=== PATIENT | female | born 1990 | race Caucasian/White ===

== ENCOUNTER 2021-12-26 14:10 | Emergency (ER) | payer OTHER, SELFPAY ==
[2021-12-26 14:24] VITALS: BP 142/69; PULSE 129; RESP 16; TEMP 35.9; O2SAT 97
[2021-12-26 14:52] LABS: Basophils Absolute Auto 0.1 K/mm3 (0.0-0.1); Basophils Percent Auto 0.6 % (0.2-1.2); Eosinophils Absolute Auto 0.2 K/mm3 (0-0.3); Eosinophils Percent Auto 2.3 % (0-4.4); Hematocrit 41.7 % (37.0-47.0); Hemoglobin 13.3 g/dL (12.0-15.0); Immature Granulocyte Absolute 0.04 K/mm3 (0.00-0.031); Immature Granulocyte Percent A 0.4 % (0-0.5); Lymphocytes Absolute Auto 2.85 K/mm3 (0.9-3.2); Lymphocytes Percent Auto 26.7 % (18.3-44.2); Mean Corpuscular HGB Conc 31.9 g/dl (32-36); Mean Corpuscular Hemoglobin 29.8 pg (26-34); Mean Corpuscular Volume 93.5 fl (80-100); Mean Platelet Volume 9.3 fl (7.4-10.4); Monocytes Absolute Auto 0.8 K/mm3 (0.1-0.6); Monocytes Percent Auto 7.3 % (2.6-8.5); Neutrophils Absolute Auto 6.7 K/mm3 (1.3-6.7); Neutrophils Percent Auto 62.7 % (45.5-73.1); Platelet Count Result 320 k/mm3 (150-375); Red Blood Count 4.46 M/mm3 (4.2-5.4); Red Cell Distribution Width 13.2 % (11.5-14.5); White Blood Count 10.7 K/mm3 (4.5-10.0)
[2021-12-26 14:53] LABS: Appearance Urine Clear (Clear); Bilirubin Urine Negative (Negative); Color Urine Yellow (Yellow); Glucose Urine UA Negative (Negative); Ketones Urine Negative (Negative); Leukocyte Esterase Ur Negative LEU/UL (Negative); Nitrate Urine Negative (Negative); Protein Urine Negative (Negative); Urobilinogen Urine 0.2 mg/dL (<2.0); pH Urine 6.5 (5.0-9.0)
[2021-12-26 14:59] LABS: Add Urine Microscopic? YES; Blood Urine Trace-Intact (Negative); Mucus Urine Few /lpf; RBC Urine 0-2 /hpf (0-2); Squamous Epithelial Cell Urine Few /hpf (Few); WBC Urine 0-3 /hpf
[2021-12-26 15:05] LABS: Alanine Aminotransferase 12 U/L (6-35); Albumin Level 4.6 g/dL (3.5-5.1); Alkaline Phosphatase 57 U/L (38-126); Anion Gap 7 mmol/L (8-16); Aspartate Amino Transferase 18 U/L (14-36); Bilirubin,Total 0.3 mg/dL (0.2-1.3); Blood Urea Nitrogen 9 mg/dL (7-17); Calcium 9.5 mg/dL (8.4-10.2); Carbon Dioxide 27 mmol/L (22-30); Chloride 104 mmol/L (98-107); Estimated CRCL calculation 93 ml/min; Estimated Glomerular Filt Rate > 60; Glucose 86 mg/dL (65-110); Lipase 63 U/L (23-300); Potassium 4.3 mmol/L (3.4-5.0); Sodium 138 mmol/L (137-145)
--- NOTE | 2021-12-26 16:15 | PC.NURSE ---
pt. called x2 for triage no answer.
== END 2021-12-26 17:03 | disposition left against medical advice (07) ==
LOC: ANHED 17:03
PROVIDERS: Emergency Provider Emergency Medicine; PCP Specialist
DX: Z53.21 Procedure and treatment not carried out due to patient leaving prior to being seen by health care provider (principal)
CPT/HCPCS: 36415; 80053; 81001; 83690; 85025; 99199

== ENCOUNTER 2024-01-29 15:12 | Outpatient (CLI) | payer OTHER, SELFPAY ==
[2024-01-31 02:18] LABS: Progesterone 18.2 ng/mL
== END 2024-01-29 15:13 | disposition home or self-care (01) ==
PROVIDERS: PCP Specialist; Visit Provider Nurse Practitioner Family
DX: O36.80X0 Pregnancy with inconclusive fetal viability, not applicable or unspecified (principal); Z3A.00 Weeks of gestation of pregnancy not specified
CPT/HCPCS: 36415; 84144; 84702

== ENCOUNTER 2024-01-31 13:18 | Outpatient (CLI) | payer OTHER, SELFPAY | END 2024-01-31 13:19 | disposition home or self-care (01) | LOC: ANHLAB 13:19 | PROVIDERS: PCP Specialist; Visit Provider Nurse Practitioner Family | DX: O36.80X0 Pregnancy with inconclusive fetal viability, not applicable or unspecified (principal); Z3A.00 Weeks of gestation of pregnancy not specified | CPT/HCPCS: 36415; 84702 ==

== ENCOUNTER 2024-02-05 15:03 | Outpatient (CLI) | payer OTHER, SELFPAY ==
--- NOTE | ~2024-02-05 | US_ITS ---
EXAMINATION: US OB <=14 wk fetus w TV DATE: 02/05/2024 15:49 INDICATION: First trimester with inconclusive viability TECHNIQUE: Real-time pelvic ultrasound utilizing both a transvaginal and transabdominal probe was pe rformed. The interpreting radiologist was not present for the study. COMPARISON: None. FINDINGS: The uterus measures 8.6 x 4.5 x 6.0 cm. There is an intrauterine gestational sac at the right side o f the fundus. A yolk sac and pole are identified. The crown rump length measures 10 mm, which c orrelates with an estimated gestational age of 7 weeks and 0 days. heart motion is identified m easuring 140 beats per minute (bpm) by M-mode Doppler. At the left side of the fundus there is a 1.9 x 1.2 x 0.7 subcentimeter hypoechoic region within the endometrial canal which could represent a smal l subchronic hematoma. The right ovary measures 2.1 x 1.3 x 1.3 cm. The left ovary measures 2.5 x 2.2 x 2.0 cm. There is no free fluid in the pelvis. IMPRESSION: 1. Single living fetus with heart rate 140 bpm. 2. Gestational age by ultrasound of 7 weeks 0 day(s) +/- 4 day(s) with ultrasound estimated date of d elivery (ANA) of 09/23/2024. 3. 1.9 x 1.2 x 0.7 cm possible subchronic hematoma. Reviewed, dictated and finalized at location A. IMPRESSION: 1. Single living fetus with heart rate 140 bpm. 2. Gestational age by ultrasound of 7 weeks 0 day(s) +/- 4 day(s) with ultrasou nd estimated date of delivery (ANA) of 09/23/2024. 3. 1.9 x 1.2 x 0.7 cm possible subchronic hematoma.
== END 2024-02-05 15:04 | disposition home or self-care (01) ==
LOC: ANHIMG 15:03
PROVIDERS: PCP Specialist; Visit Provider Nurse Practitioner Family
DX: O36.80X0 Pregnancy with inconclusive fetal viability, not applicable or unspecified (principal); Z3A.01 Less than 8 weeks gestation of pregnancy
CPT/HCPCS: 76801; 76817

== ENCOUNTER 2024-02-24 11:02 | Outpatient (CLI) | payer OTHER, SELFPAY ==
[2024-02-24 11:29] LABS: Basophils Percent Auto 0.3 % (0.2-1.2); Eosinophils Absolute Auto 0.1 K/mm3 (0-0.3); Hematocrit 37.1 % (37.0-47.0); Hemoglobin 12.2 g/dL (12.0-15.0); Immature Granulocyte Absolute 0.05 K/mm3 (0.00-0.031); Immature Granulocyte Percent A 0.6 % (0-0.5); Lymphocytes Percent Auto 25.7 % (18.3-44.2); Mean Corpuscular HGB Conc 32.9 g/dl (32-36); Mean Corpuscular Hemoglobin 31.9 pg (26-34); Mean Corpuscular Volume 97.1 fl (80-100); Mean Platelet Volume 9.3 fl (7.4-10.4); Monocytes Absolute Auto 0.5 K/mm3 (0.1-0.6); Monocytes Percent Auto 5.3 % (2.6-8.5); Neutrophils Percent Auto 67.1 % (45.5-73.1); Platelet Count Result 243 k/mm3 (150-375); Red Blood Count 3.82 M/mm3 (4.2-5.4); Red Cell Distribution Width 13.2 % (11.5-14.5); White Blood Count 8.9 K/mm3 (4.5-10.0)
[2024-02-24 11:33] LABS: Add Urine Microscopic? NO; Appearance Urine Clear (Clear); Bilirubin Urine Negative (Negative); Blood Urine Negative (Negative); Color Urine Yellow (Yellow); Glucose Urine UA Negative (Negative); Ketones Urine Negative (Negative); Leukocyte Esterase Ur Negative LEU/UL (Negative); Nitrate Urine Negative (Negative); Protein Urine Negative (Negative); Specific Grav Ur 1.012 (1.001-1.035); Urobilinogen Urine 0.2 mg/dL (<2.0)
[2024-02-24 12:19] LABS: Rapid Plasma Reagin Non-Reactive (NonReactive)
[2024-02-24 12:23] LABS: HIV 1/2 Ab P24 Ag Result Negative (Negative)
[2024-02-24 12:49] LABS: Hepatitis B Surface Antigen Negative (Negative); Rubella IgG Antibody 96.5 IU/ML
[2024-02-24 13:05] LABS: Hepatitis C Virus Antibody Negative (Negative)
[2024-02-25 23:23] LABS: Hematocrit 38.9 % (35.0-45.0); MCH 30.5 pg (27.0-33.0); RDW 12.7 % (11.0-15.0); Red Blood Cell Count 3.93 Million/uL (3.80-5.10)
== END 2024-02-24 11:03 | disposition home or self-care (01) ==
PROVIDERS: PCP Internal Medicine; Visit Provider Obstetrics & Gynecology
DX: Z34.90 Encounter for supervision of normal pregnancy, unspecified, unspecified trimester (principal)
CPT/HCPCS: 36415; 81003; 83021; 85025; 86592; 86703; 86762; 86787; 86803; 86850; 86900; 86901; 87086; 87340; G0432

== ENCOUNTER 2024-04-06 21:49 | Emergency (ER) | payer OTHER, SELFPAY ==
--- NOTE | ~2024-04-06 | US_ITS ---
EXAMINATION: US OB follow up DATE: 04/06/2024 22:41 INDICATION: Abdominal trauma during second trimester TECHNIQUE: Real-time ultrasound of the pelvis was performed. The interpreting radiologist was not pre sent for the study. COMPARISON: None. FINDINGS: There is a single living fetus in vertex presentation. The placenta is anterior with caudal margin p ossibly 3 cm from the region of the internal cervical os which is not clearly visualized. There is sm all region of either posterior uterine wall thickening related to a contraction versus a succenturiat e lobe of the placenta. No evident subchorionic hematoma. heart rate is 155 beats per minute (b pm). The amniotic fluid volume is subjectively normal with normal deepest vertical pocket measuring 2 .6 cm. IMPRESSION: 1. Single living fetus in vertex presentation with heart rate of 155 bpm. 2. Anterior placenta with caudal margin approximately 3 cm from the expected location of the internal cervical os which is not clearly visualized and without evidence of chronic hematoma. Small region o f focal posterior uterine wall thickening which could be due to a uterine contraction versus a oyster grader ior succenturiate lobe of the placenta. Could consider reevaluation on follow-up imaging. Reviewed, dictated and finalized at location A. IMPRESSION: 1. Single living fetus in vertex presentation with heart rate of 155 bpm. 2. Anterior placenta with caudal margin approximately 3 cm from the expected lo cation of the internal cervical os which is not clearly visualized and without evidence of chronic hematoma. Small region of focal posterior uterine wall thic kening which could be due to a uterine contraction versus a posterior succentur iate lobe of the placenta. Could consider reevaluation on follow-up imaging.
[2024-04-06 21:53] VITALS: BP 138/82; PULSE 94; RESP 16; TEMP 36.8; O2SAT 100
[2024-04-06] MEDS: ACETAMINOPHEN 500 MG TABLET 1000 MG PO (22:14)
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
[2024-04-07 01:00] VITALS: BP 130/72; PULSE 90; RESP 17; O2SAT 100
== END 2024-04-07 01:02 | disposition home or self-care (01) ==
PROVIDERS: Emergency Provider Physician Assistant; PCP Internal Medicine
DX: O9A.212 Injury, poisoning and certain other consequences of external causes complicating pregnancy, second trimester (principal); S39.91XA Unspecified injury of abdomen, initial encounter; O26.892 Other specified pregnancy related conditions, second trimester; R10.30 Lower abdominal pain, unspecified; O99.612 Diseases of the digestive system complicating pregnancy, second trimester; K21.9 Gastro-esophageal reflux disease without esophagitis; Z3A.16 16 weeks gestation of pregnancy; W51.XXXA Accidental striking against or bumped into by another person, initial encounter
CPT/HCPCS: 76816; 99284; A9270

== ENCOUNTER 2024-04-07 14:17 | Emergency (ER) | payer OTHER, SELFPAY ==
[2024-04-07 14:27] VITALS: BP 153/93; PULSE 81; RESP 18; TEMP 36.4; O2SAT 100
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
[2024-04-07 15:17] LABS: Add Urine Microscopic? NO; Appearance Urine Clear (Clear); Bilirubin Urine Negative (Negative); Blood Urine Negative (Negative); Color Urine Yellow (Yellow); Glucose Urine UA Negative (Negative); Ketones Urine Negative (Negative); Leukocyte Esterase Ur Negative LEU/UL (Negative); Nitrate Urine Negative (Negative); Protein Urine Negative (Negative); Specific Grav Ur 1.007 (1.001-1.035); Urobilinogen Urine 0.2 mg/dL (<2.0); pH Urine 6.5 (5.0-9.0)
[2024-04-07] MEDS: SODIUM CHLORIDE 0.9% IV 1,000 ML 999 ML IV CONT (15:39)
[2024-04-07] MEDS: ONDANSETRON INJ 4 MG/2 ML VIAL IV PUSH (15:39)
[2024-04-07 15:42] VITALS: BP 153/93; PULSE 81; RESP 18; TEMP 36.4; O2SAT 100
[2024-04-07 15:52] LABS: Basophils Percent Auto 0.2 % (0.2-1.2); Eosinophils Absolute Auto 0.1 K/mm3 (0-0.3); Eosinophils Percent Auto 0.7 % (0-4.4); Hematocrit 36.7 % (37.0-47.0); Hemoglobin 12.1 g/dL (12.0-15.0); Immature Granulocyte Absolute 0.06 K/mm3 (0.00-0.031); Immature Granulocyte Percent A 0.5 % (0-0.5); Lymphocytes Absolute Auto 2.19 K/mm3 (0.9-3.2); Mean Corpuscular Hemoglobin 31.7 pg (26-34); Mean Corpuscular Volume 96.1 fl (80-100); Mean Platelet Volume 9.4 fl (7.4-10.4); Monocytes Absolute Auto 0.5 K/mm3 (0.1-0.6); Monocytes Percent Auto 4.4 % (2.6-8.5); Neutrophils Absolute Auto 9.3 K/mm3 (1.3-6.7); Neutrophils Percent Auto 76.2 % (45.5-73.1); Platelet Count Result 266 k/mm3 (150-375); Red Blood Count 3.82 M/mm3 (4.2-5.4); Red Cell Distribution Width 13.1 % (11.5-14.5); White Blood Count 12.2 K/mm3 (4.5-10.0)
[2024-04-07 16:08] LABS: Alanine Aminotransferase 11 U/L (6-35); Albumin Level 3.6 g/dL (3.5-5.1); Alkaline Phosphatase 45 U/L (38-126); Anion Gap 8 mmol/L (4-12); Aspartate Amino Transferase 16 U/L (14-36); Bilirubin,Total 0.3 mg/dL (0.2-1.3); Blood Urea Nitrogen 5 mg/dL (7-17); Carbon Dioxide 24 mmol/L (22-30); Chloride 104 mmol/L (98-107); Estimated CRCL calculation 150 ml/min; Estimated Glomerular Filt Rate > 60; Glucose 104 mg/dL (65-110); Lipase 53 U/L (23-300); Potassium 3.6 mmol/L (3.4-5.0); Sodium 136 mmol/L (137-145)
[2024-04-07 17:13] VITALS: BP 138/78; PULSE 81; RESP 15; TEMP 36.6; O2SAT 100
== END 2024-04-07 17:14 | disposition home or self-care (01) ==
PROVIDERS: Physician Assistant; Emergency Provider Emergency Medicine; PCP Internal Medicine
DX: O26.892 Other specified pregnancy related conditions, second trimester (principal); R10.9 Unspecified abdominal pain; Z3A.16 16 weeks gestation of pregnancy; Z79.82 Long term (current) use of aspirin; K21.9 Gastro-esophageal reflux disease without esophagitis
CPT/HCPCS: 36415; 80053; 81003; 83690; 85025; 96361; 96374; 99284; J2405; J7030

== ENCOUNTER 2024-04-09 06:48 | Emergency (ER) | payer OTHER, SELFPAY ==
--- NOTE | ~2024-04-09 | US_ITS ---
EXAMINATION: US OB limited DATE: 04/09/2024 08:05 INDICATION: Vaginal bleeding. Estimated gestational age of 16 weeks and 4 days. TECHNIQUE: Real-time ultrasound of the pelvis was performed. COMPARISON: Ultrasound 04/06/2024 FINDINGS: There is a single fetus in vertex presentation. The placenta is anterior, 6.4 cm from the cervix. Fe [place] heart rate is 157 beats per minute (bpm). The amniotic fluid volume is subjectively normal. The d eepest vertical pocket is 4.4 cm. The cervical length is 3.2 cm on transabdominal images, which is no rmal. IMPRESSION: 1. Single living fetus in vertex presentation. 2. Normal placenta. Reviewed, dictated and finalized at location A.
[2024-04-09 06:55] VITALS: PULSE 119; RESP 20; TEMP 36.6; O2SAT 99
[2024-04-09 07:35] LABS: Basophils Percent Auto 0.2 % (0.2-1.2); Eosinophils Absolute Auto 0.1 K/mm3 (0-0.3); Eosinophils Percent Auto 1.2 % (0-4.4); Hematocrit 35.1 % (37.0-47.0); Hemoglobin 11.9 g/dL (12.0-15.0); Immature Granulocyte Absolute 0.04 K/mm3 (0.00-0.031); Immature Granulocyte Percent A 0.4 % (0-0.5); Lymphocytes Absolute Auto 2.45 K/mm3 (0.9-3.2); Lymphocytes Percent Auto 26.2 % (18.3-44.2); Mean Corpuscular HGB Conc 33.9 g/dl (32-36); Mean Corpuscular Hemoglobin 32.5 pg (26-34); Mean Corpuscular Volume 95.9 fl (80-100); Mean Platelet Volume 9.3 fl (7.4-10.4); Monocytes Absolute Auto 0.5 K/mm3 (0.1-0.6); Monocytes Percent Auto 5.1 % (2.6-8.5); Neutrophils Absolute Auto 6.3 K/mm3 (1.3-6.7); Neutrophils Percent Auto 66.9 % (45.5-73.1); Platelet Count Result 239 k/mm3 (150-375); Red Blood Count 3.66 M/mm3 (4.2-5.4); Red Cell Distribution Width 12.8 % (11.5-14.5); White Blood Count 9.4 K/mm3 (4.5-10.0)
[2024-04-09 07:44] LABS: Alanine Aminotransferase 11 U/L (6-35); Albumin Level 3.8 g/dL (3.5-5.1); Alkaline Phosphatase 43 U/L (38-126); Anion Gap 10 mmol/L (4-12); Aspartate Amino Transferase 19 U/L (14-36); Bilirubin,Total 0.2 mg/dL (0.2-1.3); Blood Urea Nitrogen 6 mg/dL (7-17); Calcium 9.4 mg/dL (8.4-10.2); Carbon Dioxide 24 mmol/L (22-30); Chloride 104 mmol/L (98-107); Estimated CRCL calculation 127 ml/min; Estimated Glomerular Filt Rate > 60; Glucose 93 mg/dL (65-110); Potassium 3.9 mmol/L (3.4-5.0); Sodium 138 mmol/L (137-145)
[2024-04-09 07:45] VITALS: BP 135/98; PULSE 91; RESP 18; O2SAT 99
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
[2024-04-09 08:08] LABS: INR 0.9; Prothrombin Time 13.1 Seconds (11.1-14.7)
[2024-04-09 08:10] LABS: Partial Thromboplastin Time 27.8 Seconds (22.3-36.8)
[2024-04-09] MEDS: ACETAMINOPHEN 500 MG TABLET 1000 MG PO (08:58)
[2024-04-09 09:09] LABS: Add Urine Microscopic? NO; Appearance Urine Clear (Clear); Bilirubin Urine Negative (Negative); Blood Urine Negative (Negative); Color Urine Yellow (Yellow); Glucose Urine UA Negative (Negative); Ketones Urine Negative (Negative); Leukocyte Esterase Ur Negative LEU/UL (Negative); Nitrate Urine Negative (Negative); Protein Urine Negative (Negative); Specific Grav Ur 1.005 (1.001-1.035); Urobilinogen Urine 0.2 mg/dL (<2.0)
[2024-04-09 10:41] VITALS: BP 90/72; PULSE 84; RESP 20; TEMP 36.8; O2SAT 98
== END 2024-04-09 10:43 | disposition home or self-care (01) ==
PROVIDERS: Emergency Provider Student in an Organized Health Care Education/Training Program; PCP Internal Medicine
DX: O20.9 Hemorrhage in early pregnancy, unspecified (principal); O99.012 Anemia complicating pregnancy, second trimester; D64.9 Anemia, unspecified; O99.612 Diseases of the digestive system complicating pregnancy, second trimester; K21.9 Gastro-esophageal reflux disease without esophagitis; Z3A.16 16 weeks gestation of pregnancy; Z79.899 Other long term (current) drug therapy
CPT/HCPCS: 36415; 76815; 80053; 81003; 84702; 85025; 85461; 85610; 85730; 86850; 86900; 86901; 99284; A9270

== ENCOUNTER 2024-05-17 12:40 | Outpatient (CLI) | payer OTHER, SELFPAY ==
[2024-05-17 13:02] VITALS: BP 106/65; PULSE 100
[2024-05-17 13:16] VITALS: BP 112/73; PULSE 101
[2024-05-17 13:31] VITALS: BP 101/60; PULSE 91
[2024-05-17 13:53] LABS: Basophils Percent Auto 0.3 % (0.2-1.2); Eosinophils Absolute Auto 0.1 K/mm3 (0-0.3); Eosinophils Percent Auto 0.8 % (0-4.4); Hematocrit 31.7 % (37.0-47.0); Hemoglobin 10.2 g/dL (12.0-15.0); Immature Granulocyte Percent A 0.9 % (0-0.5); Lymphocytes Absolute Auto 2.28 K/mm3 (0.9-3.2); Lymphocytes Percent Auto 19.7 % (18.3-44.2); Mean Corpuscular HGB Conc 32.2 g/dl (32-36); Mean Corpuscular Hemoglobin 31.6 pg (26-34); Mean Corpuscular Volume 98.1 fl (80-100); Mean Platelet Volume 9.4 fl (7.4-10.4); Monocytes Absolute Auto 0.6 K/mm3 (0.1-0.6); Monocytes Percent Auto 4.8 % (2.6-8.5); Neutrophils Absolute Auto 8.5 K/mm3 (1.3-6.7); Neutrophils Percent Auto 73.5 % (45.5-73.1); Platelet Count Result 252 k/mm3 (150-375); Red Blood Count 3.23 M/mm3 (4.2-5.4); Red Cell Distribution Width 12.9 % (11.5-14.5); White Blood Count 11.6 K/mm3 (4.5-10.0)
[2024-05-17 14:01] VITALS: BP 104/70; PULSE 97
[2024-05-17 14:01] LABS: Alanine Aminotransferase 9 U/L (6-35); Albumin Level 3.3 g/dL (3.5-5.1); Alkaline Phosphatase 53 U/L (38-126); Anion Gap 2 mmol/L (4-12); Aspartate Amino Transferase 14 U/L (14-36); Bilirubin,Total 0.3 mg/dL (0.2-1.3); Blood Urea Nitrogen 7 mg/dL (7-17); Calcium 8.4 mg/dL (8.4-10.2); Carbon Dioxide 24 mmol/L (22-30); Chloride 107 mmol/L (98-107); Estimated Glomerular Filt Rate > 60; Glucose 85 mg/dL (65-110); Potassium 3.9 mmol/L (3.4-5.0); Sodium 133 mmol/L (137-145); Uric Acid 3.5 mg/dL (2.5-7.5)
--- NOTE | 2024-05-17 14:11 | PC.NURSE ---
9903--Phone call to Dr. Powell re: pt's presents and reports of elevated BP at home a week and a half ago, current v.s. and Pt. denies any Sx of Preeclampsia at this time. Orders to get PI labs at this time.
[2024-05-17 14:15] LABS: Creatinine Urine 123.3 mg/dL; Total Protein Urine Random 7 mg/dL; Ur Ttl Prot Creatinine Ratio 0.06 mg/mg (0-0.20)
--- NOTE | 2024-05-17 14:49 | PC.NURSE ---
1430--Dr. Powell on unit, labs results and BP's reviewed, orders to DC home.
== END 2024-05-17 14:40 | disposition home or self-care (01) ==
LOC: ANHOBOP 12:45 → ANHOBPP 13:01
PROVIDERS: PCP Internal Medicine; Visit Provider Obstetrics & Gynecology
DX: O13.9 Gestational [pregnancy-induced] hypertension without significant proteinuria, unspecified trimester (principal)
CPT/HCPCS: 36415; 80053; 82570; 84156; 84550; 85025

== ENCOUNTER 2024-05-24 18:39 | Outpatient (CLI) | payer OTHER, SELFPAY ==
[2024-05-24] VITALS (37 sets, daily range): BP systolic 108–114; BP diastolic 59–70; PULSE 68–101; O2SAT 98–100; BMI 38.3
--- NOTE | 2024-05-24 18:39 | PC.NURSE ---
Pt arrives to unit with elevated blood pressures at home and lightheaded.
[2024-05-24 19:45] LABS: Basophils Percent Auto 0.3 % (0.2-1.2); Eosinophils Absolute Auto 0.1 K/mm3 (0-0.3); Eosinophils Percent Auto 0.8 % (0-4.4); Hematocrit 34.3 % (37.0-47.0); Hemoglobin 11.3 g/dL (12.0-15.0); Immature Granulocyte Absolute 0.09 K/mm3 (0.00-0.031); Immature Granulocyte Percent A 0.7 % (0-0.5); Lymphocytes Absolute Auto 2.62 K/mm3 (0.9-3.2); Lymphocytes Percent Auto 19.8 % (18.3-44.2); Mean Corpuscular HGB Conc 32.9 g/dl (32-36); Mean Corpuscular Hemoglobin 32.6 pg (26-34); Mean Corpuscular Volume 98.8 fl (80-100); Mean Platelet Volume 9.7 fl (7.4-10.4); Monocytes Absolute Auto 0.5 K/mm3 (0.1-0.6); Monocytes Percent Auto 3.5 % (2.6-8.5); Neutrophils Absolute Auto 9.9 K/mm3 (1.3-6.7); Neutrophils Percent Auto 74.9 % (45.5-73.1); Platelet Count Result 269 k/mm3 (150-375); Red Blood Count 3.47 M/mm3 (4.2-5.4); White Blood Count 13.2 K/mm3 (4.5-10.0)
[2024-05-24 19:49] LABS: Add Urine Microscopic? YES; Appearance Urine Clear (Clear); Bacteria Urine None Seen /hpf; Bilirubin Urine Negative (Negative); Blood Urine Negative (Negative); Color Urine Yellow (Yellow); Glucose Urine UA Negative (Negative); Ketones Urine Trace mg/dL (Negative); Leukocyte Esterase Ur Trace LEU/UL (Negative); Nitrate Urine Negative (Negative); Non Pathogenic Casts 0-2; Protein Urine Negative (Negative); RBC Urine 0-2 /hpf (0-2); Specific Grav Ur 1.013 (1.001-1.035); Squamous Epithelial Cell Urine None Seen /hpf (Few); Urobilinogen Urine 0.2 mg/dL (<2.0); WBC Urine 0-5 /hpf (0-3); pH Urine 6.5 (5.0-9.0)
[2024-05-24 19:56] LABS: Alanine Aminotransferase 10 U/L (6-35); Albumin Level 3.7 g/dL (3.5-5.1); Alkaline Phosphatase 61 U/L (38-126); Anion Gap 6 mmol/L (4-12); Aspartate Amino Transferase 16 U/L (14-36); Bilirubin,Total 0.4 mg/dL (0.2-1.3); Blood Urea Nitrogen 6 mg/dL (7-17); Calcium 8.7 mg/dL (8.4-10.2); Carbon Dioxide 22 mmol/L (22-30); Chloride 106 mmol/L (98-107); Estimated CRCL calculation 128 ml/min; Estimated Glomerular Filt Rate > 60; Glucose 82 mg/dL (65-110); Potassium 3.6 mmol/L (3.4-5.0); Sodium 134 mmol/L (137-145); Uric Acid 3.6 mg/dL (2.5-7.5)
[2024-05-24 21:18] LABS: Creatinine Urine 92.9 mg/dL; Total Protein Urine Random 8 mg/dL; Ur Ttl Prot Creatinine Ratio 0.09 mg/mg (0-0.20)
--- NOTE | 2024-05-24 21:50 | PC.NURSE ---
Updated Dr. Roe on labs, blood pressure, and heart tones. Orders received to discharge pt with instructions to keep next scheduled appointment, take blood pressure cuff to appointment, and when to return to the unit.
--- NOTE | 2024-05-24 22:31 | PC.NURSE ---
Pt discharged with instructions to keep next scheduled appointment, take blood pressure cuff to appointment, and when to return to the unit.
== END 2024-05-24 22:31 | disposition home or self-care (01) ==
LOC: ANHOBOP 18:45 → ANHOBPP 05-31 08:29
PROVIDERS: Obstetrics & Gynecology; PCP Internal Medicine; Visit Provider Obstetrics & Gynecology
DX: O13.9 Gestational [pregnancy-induced] hypertension without significant proteinuria, unspecified trimester (principal); Z3A.00 Weeks of gestation of pregnancy not specified
CPT/HCPCS: 36415; 59025; 80053; 81001; 82570; 84156; 84550; 85025; 99199

== ENCOUNTER 2024-06-03 13:25 | Outpatient (CLI) | payer OTHER, SELFPAY ==
[2024-06-03 14:56] LABS: Basophils Percent Auto 0.3 % (0.2-1.2); Eosinophils Absolute Auto 0.1 K/mm3 (0-0.3); Eosinophils Percent Auto 0.9 % (0-4.4); Glucose 1 Hour PP 50gm Dose 136 mg/dL; Hematocrit 32.9 % (37.0-47.0); Immature Granulocyte Percent A 0.8 % (0-0.5); Lymphocytes Absolute Auto 2.01 K/mm3 (0.9-3.2); Lymphocytes Percent Auto 16.8 % (18.3-44.2); Mean Corpuscular HGB Conc 33.4 g/dl (32-36); Mean Corpuscular Hemoglobin 32.4 pg (26-34); Mean Corpuscular Volume 97.1 fl (80-100); Mean Platelet Volume 9.4 fl (7.4-10.4); Monocytes Absolute Auto 0.5 K/mm3 (0.1-0.6); Monocytes Percent Auto 4.5 % (2.6-8.5); Neutrophils Absolute Auto 9.2 K/mm3 (1.3-6.7); Neutrophils Percent Auto 76.7 % (45.5-73.1); Platelet Count Result 253 k/mm3 (150-375); Red Blood Count 3.39 M/mm3 (4.2-5.4); Red Cell Distribution Width 13.2 % (11.5-14.5)
== END 2024-06-03 13:26 | disposition home or self-care (01) ==
LOC: ANHLAB 13:27
PROVIDERS: PCP Internal Medicine; Visit Provider Nurse Practitioner Obstetrics & Gynecology
DX: Z34.90 Encounter for supervision of normal pregnancy, unspecified, unspecified trimester (principal)
CPT/HCPCS: 36415; 82947; 85025

== ENCOUNTER 2024-06-10 11:46 | Outpatient (CLI) | payer OTHER, SELFPAY ==
[2024-06-10 12:21] LABS: Glucose Fasting Gestational 88 mg/dL (>/=95)
[2024-06-10 13:56] LABS: Glucose 1 Hour Gest 152 mg/dL (>/=180)
[2024-06-10 15:51] LABS: Glucose 2 Hour Gest 131 mg/dL (>/= 155)
[2024-06-10 15:51] LABS: Glucose 3 Hour Gest 103 mg/dL (>/=140)
== END 2024-06-10 11:47 | disposition home or self-care (01) ==
LOC: ANHLAB 11:47
PROVIDERS: PCP Internal Medicine; Visit Provider Nurse Practitioner Obstetrics & Gynecology
DX: O99.810 Abnormal glucose complicating pregnancy (principal); Z3A.00 Weeks of gestation of pregnancy not specified
CPT/HCPCS: 36415; 82951; 82952

== ENCOUNTER 2024-07-15 14:15 | Outpatient (RCR) | payer OTHER, SELFPAY | END 2024-10-13 23:59 | disposition home or self-care (01) | LOC: ANHOBOP 14:15 | PROVIDERS: Visit Provider Obstetrics & Gynecology | DX: O36.8130 Decreased fetal movements, third trimester, not applicable or unspecified (principal); Z3A.30 30 weeks gestation of pregnancy | CPT/HCPCS: 59025 ==

== ENCOUNTER 2024-07-28 10:55 | Outpatient (CLI) | payer OTHER, SELFPAY ==
[2024-07-28 11:22] LABS: Hemoglobin 10.8 g/dL (12.0-15.0); Mean Corpuscular HGB Conc 32.7 g/dl (32-36); Mean Corpuscular Volume 97.9 fl (80-100); Mean Platelet Volume 9.3 fl (7.4-10.4); Platelet Count Result 250 k/mm3 (150-375); Red Blood Count 3.37 M/mm3 (4.2-5.4); Red Cell Distribution Width 13.2 % (11.5-14.5); White Blood Count 13.9 K/mm3 (4.5-10.0)
[2024-07-28 11:44] LABS: Rapid Plasma Reagin Non-Reactive (NonReactive)
--- OUTSIDE RECORDS SUMMARY | 2024-07-28 11:46 | XMS_ITS | Encounter Summary ---
Author Organization [facility] Address 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 Gender Identity Not on file Sexual Orientation Not on file documented as of this encounter Plan of Treatment Upcoming Encounters Date Type Department Care Team (Late st Contact Info) Description 08/05/2024 9:30 AM TYPEWRITER ALIGNER Appointment [facility] [place] [address] [place] [address] Jaydon Powell MD [address] [facility] [address] [facility] [address] [place] [address] documented as of this encounter Visit Diagnoses Not on filedocumented in this encounter Care Teams Remote Sensing Specialist Relationship Specialty Start Date End Date Soren Mart MD PCP - General 02/10/09 documented as of this encounter
--- OUTSIDE RECORDS SUMMARY | 2024-07-28 11:46 | XMS_ITS | Encounter Summary ---
Author Organization [facility] Address [address] [place] [address] Care Team Providers Care Gifted Teacher Name Role Phone Soren Mart MD Primary Care Provider Encounter Details Date Type Department Care Team (Late st Contact Info) Description 01/15/[address] 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 Gender Identity Not on file Sexual Orientation Not on file documented as of this encounter Plan of Treatment Upcoming Encounters Date Type Department Care Team (Late st Contact Info) Description 08/05/2024 9:30 AM UTILITY WORKER DRIVER Appointment [facility] [place] [address] [place] [address] Jaydon Powell MD [address] [facility] [address] [facility] [address] [place] [address] documented as of this encounter Visit Diagnoses Not on filedocumented in this encounter Care Teams Gifted Teacher Relationship Specialty Start Date End Date Soren Mart MD PCP - General 02/10/09 documented as of this encounter
--- OUTSIDE RECORDS SUMMARY | 2024-07-28 11:46 | XMS_ITS | Encounter Summary ---
Author Organization [facility] Address [address] [place] [address] Care Team Providers Care Associate Director Career Services Name Role Phone Soren Mart MD Primary Care Provider Encounter Details Date Type Department Care Team (Late st Contact Info) Description 06/04/2006 Outpatient Historical [facility] Internal Medicine [address] [address] Inge Hutson MD NO ADDRESS ON FILE Social History Tobacco Use Types Packs/Day Years Used Date Smoking Tobacco: Never Assessed Comments Unknown Sex and Gender Information Value Date Recorded Sex Assigned at Not on file Legal Sex Female 3:43 AM LITIGATION SERVICES MANAGER Gender Identity Not on file Sexual Orientation Not on file documented as of this encounter Plan of Treatment Upcoming Encounters Date Type Department Care Team (Late st Contact Info) Description 08/05/2024 9:30 AM LITIGATION SERVICES MANAGER Appointment [facility] [place] [address] [place] [address] Jaydon Powell MD [address] [facility] [address] [facility] [address] [place] [address] documented as of this encounter Visit Diagnoses Not on filedocumented in this encounter Care Teams Associate Director Career Services Relationship Specialty Start Date End Date Soren Mart MD PCP - General 02/10/09 documented as of this encounter
--- OUTSIDE RECORDS SUMMARY | 2024-07-28 11:46 | XMS_ITS | Encounter Summary ---
Author Organization [facility] Address [address] [place] [address] Care Team Providers Care Automotive Paint Technician Name Role Phone Soren Mart MD Primary Care Provider [phone] Encounter Details Date Type Department Care Team (Late st Contact Info) Description 04/06/2007 Orders Only [facility] Internal Medicine [address] [address] Inge Hutson MD NO ADDRESS ON FILE Social History Tobacco Use Types Packs/Day Years Used Date Smoking Tobacco: Never Assessed Comments Unknown Sex and Gender Information Value Date Recorded Sex Assigned at Not on file Legal Sex Female 3:43 AM LEARNING FACILITATOR Gender Identity Not on file Sexual Orientation Not on file documented as of this encounter Progress Notes * Inge Hutson MD - 10/30/2007 1:35 PM CDT TIME:08:59 am PATIENT`S HOME PHONE: PATIENT`S WORK PHONE: PATIENT`S INSURANCE: [facility] WHO TOOK THE CALL: Amelia Lee R GENERAL INFORMATION ALTERNATIVE PHONE NUMBER: [phone] or Amelia at work WHO CALLED: Patient`s mother called. CURRENT ALLERGY LIST: NO KNOWN DRUG ALLERGY PHARMACY NUMBER: [phone] PROBLEMS: feeling bad , achy FEVER: Patient complains of fever. 101.5 this am HEADACHE: Patient complains of headache. SORE THROAT: Patient complains of sore throat. The sore throat began approximately 5 days ago. missed school (Friday school closed) she said her throat feels just like it did after her tonsillectomy SECTION 1: REQUESTED ACTION larry 04/06/07 at 09:03 am: MEDICATION REQUEST: Patient wants medications and can not come in. DOCTOR`S RESPONSE: romero 04/06/07 at 09:10 am suspect strep, advise fluids, rest and advil, start abx as below, no school today MEDICATIONS: Call in to Pharmacy AMOXICILLIN ORAL TABLET 500 MG, 1 Three Times A Day, 30 Dispensed, status: NEW PRESCRIPTION, 04/06/2007. FINAL ACTION: licasl 04/06/07 at 10:38 am Pharm pasha cornell Spoke with patient 04/06/07 at 10:39 am. mother Called pharmacy at 04/06/07 at 10:44 am. Electronically Signed by: Maribeth Sanchez on Friday, April 06, 2007 documented in this encounter Plan of Treatment Upcoming Encounters Date Type Department Care Team (Late st Contact Info) Description 08/05/2024 9:30 AM LEARNING FACILITATOR Appointment [facility] Maternal and [facility] [address] [facility] [address] [place] [address] Jaydon Powell MD [address] [address] [place] [address] documented as of this encounter Visit Diagnoses Not on filedocumented in this encounter Care Teams Automotive Paint Technician Relationship Specialty Start Date End Date Soren Mart MD PCP - General 02/10/09 documented as of this encounter
--- OUTSIDE RECORDS SUMMARY | 2024-07-28 11:46 | XMS_ITS | Encounter Summary ---
Author Organization [facility] Address [address] [place] [address] Care Team Providers Care Service Coordinator Elderly Facility Name Role Phone Soren Mart MD Primary Care Provider [phone] Encounter Details Date Type Department Care Team (Late st Contact Info) Description 01/16/2007 Orders Only [facility] Internal Medicine [address] [address] [place] [address] [address] Social History Tobacco Use Types Packs/Day Years Used Date Smoking Tobacco: Never Assessed Comments Unknown Sex and Gender Information Value Date Recorded Sex Assigned at Not on file Legal Sex Female 3:43 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 CURRENT ALLERGY LIST: NO KNOWN DRUG ALLERGY PROBLEMS: all x 2 weeks CONGESTION: Patient complains of sinus congestion, complains of head congestion, complains of chestcongestion, complains of nasal congestion. COUGH:Patient complains of cough. symptoms had improved some, but now rigo in head worse. SECTION 1: REQUESTED ACTION [facility] 01/16/07 at 04:13 pm: MEDICATION REQUEST: Patient wants medications and can not come in. DOCTOR`S RESPONSE: [facility] 01/16/07 at 04:[address] Mccormick MEDICATIONS: Call in to Pharmacy DIFLUCAN ORAL TABLET 150 MG, 1 Every Day, 1 Dispensed, status: NEW PRESCRIPTION, 01/16/2007. MEDROL (SANDRA) ORAL TABLET 4 MG, 1 PACKET ORAL DIRECTED, 1 Dispensed, status: NEW PRESCRIPTION, 01/16/2007. ZITHROMAX Z-SANDRA ORAL TABLET 250 MG, TAKE DIRECTED, 1 Dispensed, status: CONTINUED, 01/16/2007. also steam inhalations FINAL ACTION: [facility] 01/16/07 at 04:15 pm Spoke with patient 01/16/07 at 04:15 pm. mom printed script Electronically Signed by: Maribeth Sanchez on Friday, April 06, 2007 documented in this encounter Plan of Treatment Upcoming Encounters Date Type Department Care Team (Late st Contact Info) Description 08/05/2024 9:30 AM BANDAGE WINDING MACHINE OPERATOR Appointment [facility] Maternal and [facility] [address] [place] [address] Jaydon Powell MD [address] [facility] [address] [place] [address] documented as of this encounter Visit Diagnoses Not on filedocumented in this encounter Care Teams Service Coordinator Elderly Facility Relationship Specialty Start Date End Date Soren Mart MD PCP - General 02/10/09 documented as of this encounter
--- OUTSIDE RECORDS SUMMARY | 2024-07-28 11:46 | XMS_ITS | Encounter Summary ---
Author Organization [facility] Address [address] [place] [address] Care Team Providers Care Clinical Laboratory Scientist Name Role Phone Soren Mart MD Primary Care Provider [phone] Encounter Details Date Type Department Care Team (Latest Contact Info) Description 06/05/2006 Outpatient Historical [facility] David Guillermo MD NO ADDRESS ON FILE Chronic Tonsillitis (Primary Dx) Social History Tobacco Use Types Packs/Day Years Used Date Smoking Tobacco: Never Assessed Comments Unknown Sex and Gender Information Value Date Recorded Sex Assigned at Not on file Legal Sex Female 3:43 AM TESTER SOUND Gender Identity Not on file Sexual Orientation Not on file documented as of this encounter Plan of Treatment Upcoming Encounters Date Type Department Care Team (Late st Contact Info) Description 08/05/2024 9:30 AM TESTER SOUND Appointment [facility] M[facility] and Health [facility] [address] [place] [address] Jaydon Powell MD [address] [facility] [address] [facility] [address] [place] [address] documented as of this encounter Procedures Procedure Name Priority Date/Time Associated Diagnosis Comments POC , URINE Routine 06/05/2006 9:20 AM TESTER SOUND HEMOGLOBIN AND HEMATOCRIT Routine 06/05/2006 9:11 AM TESTER SOUND documented in this encounter Results * POC , URINE (06/05/2006 9:20 AM TESTER SOUND) , URINE POC Negative Negative INTERFACE SYSTEM 06/05/2006 9:20 AM TESTER SOUND David Guillermo MD POINT OF CARE TESTING Final Result Performing Organization Address [facility] Phone Number INTERFACE SYSTEM Refer to clinic/hospital department * HEMOGLOBIN AND HEMATOCRIT (06/05/2006 9:11 AM TESTER SOUND) HEMOGLOBIN 13.3 11.8 - 14.8 g/dL INTERFACE SYSTEM HEMATOCRIT 39.0 35.5 - 44.0 % INTERFACE SYSTEM 06/05/2006 9:11 AM TESTER SOUND David Guillermo MD HEMATOLOGY ORDERABLES Final Result Performing Organization Address [facility] de Phone Number INTERFACE SYSTEM Refer to clinic/hospital department documented in this encounter Visit Diagnoses Diagnosis Chronic tonsillitis- Primary documented in this encounter Care Teams Clinical Laboratory Scientist Relationship Specialty Start Date End Date Soren Mart MD PCP - General 02/10/09 documented as of this encounter
--- OUTSIDE RECORDS SUMMARY | 2024-07-28 11:46 | XMS_ITS | Encounter Summary ---
Author Organization [facility] Address [address] [place] [address] Care Team Providers Care Ham Rolling Machine Operator Name Role Phone Soren Mart MD Primary Care Provider [phone] Encounter Details Date Type Department Care Team (Late st Contact Info) Description 04/30/2006 Orders Only [facility] Internal Medicine [address] [address] Inge Hutson MD NO ADDRESS ON FILE Social History Tobacco Use Types Packs/Day Years Used Date Smoking Tobacco: Never Assessed Comments Unknown Sex and Gender Information Value Date Recorded Sex Assigned at Not on file Legal Sex Female 3:43 AM STUNT WOMAN Gender Identity Not on file Sexual Orientation Not on file documented as of this encounter Progress Notes * Inge Hutson MD - 03/30/2008 12:26 AM CDT WEIGHT: 134lbs BLOOD PRESSURE: 100/76 Right Arm Sitting TEMPERATURE: 98.5??f Oral NURSE NAME: Ashanti Rodriguez R CHIEF COMPLAINT lesion on lip. HISTORY: HISTORY: 682.0-OTHER CELLULITIS AND ABSCESS attempted to whatley her lower right lip 2 days ago and now lip significantly swollen, tender and draining green discharge from piercing site. 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 CURRENT ALLERGY LIST: NO KNOWN DRUG ALLERGY SOCIAL HISTORY: TOBACCO USE: Has no significant smoking history. 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 PHYSICAL EXAMINATION: CONSTITUTIONAL: GENERAL APPEARANCE: Healthy appearing patient in no distress. EARS, NOSE, MOUTH AND THROAT: EARS: CERUMEN INCREASED IN THE EARS BILATERALLY WITH REDUCED VISUALIZATION. NOSE (AND SINUS): No abnormality of the nose or sinuses is noted. ORAL: Normal oropharynx. 4 mm abscess below left lower lip, yellow/green discharge noted from oral mucosa and lower lip swollen as well. NECK/THYROID: Trachea midline. No thyroid enlargement, tenderness, or mass. No supraclavicular or cervical adenopathy. LYMPHATICS: A TENDER, ENLARGED LYMPH NODE NOTED IN THE ANTERIOR CERVICAL CHAINS BILATERALLY. SKIN: SKIN: Warm, dry, no diaphoresis, no significant lesions, irritation, rashes or ulcers. No induration, obvious subcutaneous nodules or tightening. OFFICE PROCEDURES: PROCEDURE: The patient's cerumen impaction does not allow for visualization of the TM, cerumen impaction was successfully removed by ear wash irrigation so as to visualize TM. ASSESSMENT/PLAN: 380.4-CERUMEN IMPACTION ASSESSMENT: The cerumen impaction was sucessfully removed by ear wash irrigation so as to visualizeTM. LAB ORDERS: Order number: [id number] Test Ordered: REMOVE CERUMEN IMPACT [id number] 682.0-OTHER CELLULITIS AND ABSCESS ASSESSMENT: advised warm compresses every 4 hours, saline solution oral rinses BID and will start abx as below. May need referral to ENT for drainage if worsens. MEDICATIONS: AUGMENTIN ORAL TABLET 875-125 MG, 1 Two Times A Day, 20 Dispensed, status: NEW PRESCRIPTION, 04/30/2006. PREVENTIVE COUNSELING The patient was counseled. we discussed the importance of restraining from self piercings in the future due to risk of infection, transmission of viruses through product sharing. RETURN VISIT : please waive today co-pay Electronically Signed by: Inge Hutson MD on Thursday, May 04, 2006 documented in this encounter Plan of Treatment Upcoming Encounters Date Type Department Care Team (Late st Contact Info) Description 08/05/2024 9:30 AM STUNT WOMAN Appointment [facility] [address] [place] [id number] Jaydon Powell MD [address] [place] [address] documented as of this encounter Visit Diagnoses Not on filedocumented in this encounter Care Teams Ham Rolling Machine Operator Relationship Specialty Start Date End Date Soren Mart MD PCP - General 02/10/09 documented as of this encounter
--- OUTSIDE RECORDS SUMMARY | 2024-07-28 11:46 | XMS_ITS | Encounter Summary ---
Author Organization [facility] Address [address] [place] [address] Care Team Providers Care Director Of Social Services Name Role Phone Soren Mart MD Primary Care Provider [phone] Encounter Details Date Type Department Care Team (Late st Contact Info) Description 12/27/2006 Outpatient Historical [facility] Inge Hutson MD NO ADDRESS ON FILE Disturbance of Skin Sensation (Primary Dx) Social History Tobacco Use Types Packs/Day Years Used Date Smoking Tobacco: Never Assessed Comments Unknown Sex and Gender Information Value Date Recorded Sex Assigned at Not on file Legal Sex Female 3:43 AM ANALYTICS DIRECTOR Gender Identity Not on file Sexual Orientation Not on file documented as of this encounter Plan of Treatment Upcoming Encounters Date Type Department Care Team (Late st Contact Info) Description 08/05/2024 9:30 AM ANALYTICS DIRECTOR Appointment [facility] [address] [place] [address] Jaydon Powell MD [address] [facility] [address] [place] [address] documented as of this encounter Procedures Procedure Name Priority Date/Time Associated Diagnosis Comments CBC WITH DIFFERENTIAL Routine 12/27/2006 12:31 PM CDT CBC WITH DIFFERENTIAL Routine 12/27/2006 12:31 PM CDT TSH Routine 12/27/2006 12:31 PM CDT HEMOGLOBIN A1C Routine 12/27/2006 12:31 PM CDT FERRITIN Routine 12/27/2006 12:31 PM CDT VITAMIN B12 LEVEL Routine 12/27/2006 12: 31 PM CDT COMPREHENSIVE METABOLIC PANEL Routine 12/27/2006 12:31 PM CDT documented in this encounter Results * CBC WITH DIFFERENTIAL (12/27/2006 12:31 PM CDT) NEUTROPHILS 53 36 - 74 % INTERFAC E SYSTEM LYMPHOCYTES 35 18 - 53 % INTERFAC E SYSTEM MONOCYTES 11 2 - 13 % INTERFACE SYSTEM EOSINOPHILS 2 2 - 12 % INTERFAC E SYSTEM BASOPHILS 0 0 - 3 % INTERFACE SYSTEM NEUTROPHIL ABSOLUTE 3.43 K/uL INTERFACE SYSTEM LYMPHOCYTE ABSOLUTE 2.25 K/uL INTERFACE SYSTEM MONOCYTE ABSOLUTE 0.69 K/uL INTERFACE SYSTEM EOSINOPHIL ABSOLUTE 0.11 K/uL INTERFACE SYSTEM BASOPHILS ABSOLUTE 0.02 K/uL INTERFACE SYSTEM 12/27/2006 12:3 1 PM CDT us Inge Hutson MD HEMATOLOGY ORDERABLES Ed ited INTERFACE SYSTEM Refer to clinic/hospital department * CBC WITH DIFFERENTIAL (12/27/2006 12:31 PM CDT) WBC 6.5 4.0 - 9.8 K/uL INTERFACE SYSTEM RBC 4.19 3.90 - 4.90 M/uL INTERFACE SYSTEM HEMOGLOBIN 12.9 11.8 - 14.8 g/dL INTERFACE SYSTEM HEMATOCRIT 38.5 35.5 - 44.0 % INTERFACE SYSTEM MCV 91.9 82.0 - 99.0 fL INTERFACE SYSTEM MCH 30.8 27.2 - 32.6 pg INTERFACE SYSTEM MCHC 33.5 31.5 - 35.5 % INTERFACE SYSTEM RDW 12.6 11.5 - 14.5 % INTERFACE SYSTEM RDW-STDEV 42.4 37.1 - 48.7 fL INTERFACE SYSTEM PLATELETS 258 140 - 350 K/uL INTERFACE SYSTEM MPV 10.5 9.3 - 12.4 fL INTERFACE SYSTEM 12/27/2006 12:3 1 PM CDT Inge Hutson MD HEMATOLOGY ORDERABLES Ed ited Performing Organization Address [facility] Number INTERFACE SYSTEM Refer to clinic/hospital department * HEMOGLOBIN A1C (12/27/2006 12:31 PM CDT) HEMOGLOBIN A1C 5.4 4.1 - 6.1 % of Hgb INTERFACE SYSTEM GLUCOSE, MEAN BLOOD 115 mg/dL INTERFACE SYSTEM 12/27/2006 12:3 1 PM CDT Inge Hutson MD CHEMISTRY ORDERABLES Darrel juan Performing Organization Address [facility] Phone Number INTERFACE SYSTEM Refer to clinic/hospital department * TSH (12/27/2006 12:31 PM CDT) TSH 1.50 0.27 - 4.20 uU/mL INTERFACE SYSTEM 12/27/2006 12:3 1 PM CDT Inge Hutson MD CHEMISTRY ORDERABLES Darrel juan Performing Organization Address [facility] Phone Number INTERFACE SYSTEM Refer to clinic/hospital department * VITAMIN B12 (12/27/2006 12:31 PM CDT) VITAMIN B12 398 211 - 946 pg/mL INTERFACE SYSTEM Comment: It has been reported that between 5 to 10% of patients with values between 200 and 400 pg/mL may experience neuropsychiatric and hematologic abnormalities due to occult B12 deficiency. Less than 1% of patients with values above 400 pg/mL will have symptoms. 12/27/2006 12:3 1 PM CDT Inge Hutson MD CHEMISTRY ORDERABLES Darrel juan Performing Organization Address [facility] de Phone Number INTERFACE SYSTEM Refer to clinic/hospital department * FERRITIN (12/27/2006 12:31 PM CDT) FERRITIN 39 13 - 150 ng/mL INTERFACE SYSTEM 12/27/2006 12:3 1 PM CDT Inge Hutson MD CHEMISTRY ORDERABLES Darrel juan Performing Organization Address [facility] de Phone Number INTERFACE SYSTEM Refer to clinic/hospital department * COMPREHENSIVE METABOLIC PANEL (12/27/2006 12:31 PM CDT) GLUCOSE 83 60 - 110 mg/dL INTERFACE SYSTEM CREATININE 0.66 0.51 - 0.95 mg/dL INTERFACE SYSTEM CALCIUM 8.9 8.4 - 10.2 mg/dL INTERFACE SYSTEM ALKALINE PHOSPHATASE 79 35 - 187 U/L INTERFACE SYSTEM AST 17 12 - 32 U/L INTERFACE SYSTEM ALT 10 0 - 31 U/L INTERFACE SYSTEM TOTAL PROTEIN 6.8 6.3 - 8.6 g/dL INTERFACE SYSTEM ALBUMIN 4.4 3.2 - 4.5 g/dL INTERFACE SYSTEM BILIRUBIN TOTAL 0.3 0.2 - 1.0 mg/dL INTERFACE SYSTEM BUN 14 6 - 20 mg/dL INTERFACE SYSTEM SODIUM 139 135 - 145 mmol/L INTERFACE SYSTEM POTASSIUM 4.5 3.5 - 4.9 mmol/L INTERFACE SYSTEM CHLORIDE 106 96 - 108 mmol/L INTERFACE SYSTEM CO2 25 22 - 30 mmol/L INTERFACE SYSTEM GFR, N/A:MDRD equation validated for pts. >18 yrs. >=60 mL/min/1 .7 sq meter INTERFACE SYSTEM GFR N/A:MDRD equation validated for pts. >18 yrs. >=60 mL/min/1 .7 sq meter INTERFACE SYSTEM Comment: Estimated GFR rate interpretative information for both Americans and non- Americans is available on the [facility] Intranet at: [email or web address] Select: Lab Policies and Procedures Select: Reference Ranges - GFR 12/27/2006 12:3 1 PM CDT us Inge Hutson MD CHEMISTRY ORDERABLES Darrel juan INTERFACE SYSTEM Refer to clinic/hospital department documented in this encounter Visit Diagnoses Diagnosis Disturbance of skin sensation- Primary documented in this encounter Care Teams Director Of Social Services Relationship Specialty Start Date End Date Soren Mart MD PCP - General 02/10/09 documented as of this encounter
--- OUTSIDE RECORDS SUMMARY | 2024-07-28 11:46 | XMS_ITS | Referral Summary ---
Author Organization [facility] Address [address] [facility] [place] [address] Care Team Providers Care Mowing Machine Operator Name Role Phone Joy Gardner GWEN-SALOONKEEPER Primary Care Provider + Source Comments [facility],non-[facility] Affiliates and Associated Physician Practices is amultiple site organization consisting of ambulatory clinics and hospital sitesin [place], [place], [place] and [place]. This disclosure is being madepursuant to the Care Everywhere program and may not contain all information available regarding this patient. Last updated 18.[facility] Donews Allergies No known active allergies Medications * Be aware that medications may not be up to date on this document. Alwaysverify current medications with the patient. Medication Sig Dispensed Refills Start Date End Date Status busPIRone (BUSPAR) 10 MG tablet buspirone 10 mg tablet TAKE 1 TABLET BY MOUTH THREE TIMES DAILY Active amphetamine-dextroam phetamine (ADDERALL) 20 MG tablet Take 20 mg by mouth 2 times daily 01/29/2021 Active PARoxetine (PAXIL) 30 MG tablet Take 30 mg by mouth once daily 02/08/2021 Active celecoxib (CELEBREX) 200 MG capsule Take 1 capsule by mouth once daily Active ferrous sulfate 325 (65 FE) MG tabletIndications:Ir on deficiency anemia, unspecified iron deficiency anemia type Take 1 (one) tablet by mouth once daily Take one tablet at the same time as your Vitamin C (ascorbic acid). 90 tablet 3 03/08/2021 Active ascorbic acid (VITAMIN C) 500 MG tabletIndications:Ir on deficiency anemia, unspecified iron deficiency anemia type Take 1 (one) tablet by mouth once daily Take 1 tablet at the same time as your ferrous sulfate (iron tablet). 90 tablet 3 03/08/2021 Active prazosin (MINIPRESS) 2 MG capsuleIndications:N ightmare disorder Take 1 (one) capsule by mouth at bedtime 90 capsule 3 03/08/2021 Active Active Problems Problem Noted Date Diagnosed Date Obesity (BMI 30-39.9) 02/16/2021 Multiple joint pain 08/09/2020 Daytime hypersomnia 07/24/2020 ADD (attention deficit disorder) 12/21/2013 Thoracic outlet syndrome 04/25/2011 Anxiety disorder 07/17/2002 Depressive disorder 07/17/2000 Immunizations Name Administration Dates Next Due INFLUENZA VACCINE, TRIV. (AF LURIA, FLUZONE TRIVALENT; 6MO+) (IIV3) 04/13/2016,04/14/2014,05/21/2010 Covid Cloud Elements primary monoval ent 12+ yr 0.3mL Purple cap 10/12/2020,09/14/2020 DTaP VACCINE IM (6wk-6yrs) 12/15/2005,,01/27/1993, 992,1991,1991 FLU VACCINE TRI IIV3 SPLIT P F IM (FLUVIRIN) 04/19/2015 HEP B VACCINE, ADULT 3 DOSE 08/17/1997, 7,02/07/1997 HIB VACCINE 10/28/1992, 2,1991, 992 MMR 02/07/1997,10/28/1992 POLIO IPV 02/07/1997, 3,1991, 992 TDAP (7yrs+) 09/24/2013 Td (Adult), 2 Lf Tetanus Tox oid, Adsorbed, Pf 01/15/2006 VARICELLA 10/31/2013,07/31/1996 Social History Tobacco Use Types Packs/Day Years Used Date Smoking Tobacco: Never Smokeless Tobacco: Never Tobacco Cessation:Counseling Given: No Alcohol Use Standard Drinks/Week Comments Yes 0 (1 standard drink = 0.6 oz pur e alcohol) yearly Education Answer Date Recorded What is the highest level of school you have completed or the highest degree you have received? Associate degree: academic program 02/13/2021 Sex and Gender Information Value Date Recorded Sex Assigned at Not on file Gender Identity Not on file Sexual Orientation Not on file Last Filed Vital Signs Vital Sign Reading Time Taken Comments Blood Pressure 120/60 02/13/2021 9:24 AM CDT Pulse - - Temperature - - Respiratory Rate - - Oxygen Saturation - - Inhaled Oxygen Concentration - - Weight 102.4 kg (225 lb 12 oz) 03/08/2021 1:33 P M CDT Height 161.3 cm (5' 3.5 ) 03/08/2021 1:33 PM CDT Body Mass Index 39.36 03/08/2021 1:33 PM CDT Plan of Treatment Not on file Administered Medications Care Teams Mowing Machine Operator Relationship Specialty Start Date End Date Joy Gardner APRN-CNP [address] [address] PCP - General 02/13/21
--- OUTSIDE RECORDS SUMMARY | 2024-07-28 11:46 | XMS_ITS | Clinical Summary ---
Author Organization [facility] Address [address] [place] [address] Care Team Providers Care Ror Engineer Name Role Phone Soren Mart MD Primary Care Provider [phone] Allergies No known active allergies Medications ondansetron (ZOFRAN ODT) 4 mg Tablet, Rapid DissolveIndication s:Nausea Place 1 tab on top of tongue and let dissolve every 8 hours prn nausea.. 32 Tablet 3 7 Active mometasone-formote rol (DULERA) 100-5 mcg/actuation inhaler LOT:[id number] EX:11/2017 QTY:1 BOX. 1 Gram 7 Active ALPRAZolam (XANAX) 0.5 mg tablet Take 1 Tablet (0.5 mg) by mouth 2 times daily as needed for Anxiety. 60 Tablet 3 8 Active PARoxetine HCl (PAXIL) 20 mg tablet Take 1 Tablet (20 mg) by mouth daily. 90 Tablet 3 9 Active dextroamphetamine- amphetamine (AdderalL) 20 mg tabletIndications: Attention deficit disorder (ADD) without hyperactivity Take 1 Tablet (20 mg) by mouth 2 times daily. ADD Max Daily Amount: 40 mg 60 Tablet 1 Active Active Problems Patient Care Coordination No te Formatting of this note migh t be different from the original. Prev visit done 07/12/20 Problem Noted Date Diagnosed Date ADD (attention deficit disorder) 12/21/2013 Thoracic outlet syndrome 04/25/2011 Depression with anxiety 10/30/2005 Family history of other neurological diseases Overview (09/01/2007): father with MS Resolved Problems Problem Noted Date Diagnosed Date Resolved Date Syncope and collapse 12/21/2013 015 Head injury, unspecified 08/24/2007 Palpitations 08/24/2007 04/11/2010 Influenza with other respira tory manifestations 07/06/2007 04/11/2010 Disturbance of skin sensation 10/21/2006 04/11/2010 Blood in stool 06/04/2006 04/11/2010 Screening for malignant neop lasm of the rectum 06/04/2006 04/11/2010 Impacted cerumen 04/30/2006 04/11/2010 Cellulitis and abscess of face 04/30/2006 04/11/2010 Routine general medical exam ination at a health care facility 01/15/2006 04/11/2010 Pain in limb 01/15/2006 04/11/2010 Chronic rhinitis 01/15/2006 04/11/2010 Need for prophylactic vaccin ation with tetanus-diphtheria (Td) 01/15/2006 04/11/2010 Acute tonsillitis 10/30/2005 04/11/2010 Encounters Date Type Department Care Team Description 2024 External Device Data STL ABSTRACTION Provider, Abstract 07/13/2024 External Device Data STL ABSTRACTION Provider, Abstract 07/13/2024 External Device Data STL ABSTRACTION Provider, Abstract 07/07/2024 External Device Data STL ABSTRACTION Provider, Abstract 07/07/2024 External Device Data STL ABSTRACTION Provider, Abstract 06/30/2024 External Device Data STL ABSTRACTION Provider, Abstract 05/18/2024 External Device Data STL ABSTRACTION Provider, Abstract 05/12/2024 2:00 PM MANAGER DESKTOP - 05/12/2024 11:59 PM MANAGER DESKTOP Hospital Encounter [facility] [address] [place] [address] Jaydon Chase MD Discharge Disposition: Home or Self Care from Last 3 Months Immunizations Immunization Administration Dates Next Due (ADACEL/BOOSTRIX)(10 YR UP) TDAP VACCINE, 0.5ML, IM 09/24/2013 (INFANRIX)(6 WKS-6 YRS) DIPT HERIA, TETANUS TOXOIDS, AND ACCELLULAR PERTUSSIS VACCINE (DTAP), 0.5 ML IM 12/15/2005,02/07/1997,01/27/1993,1991,1991,1991 (IPOL)(6 WKS AND UP) POLIOVI CATHRYN VACCINE, INACTIVATED (IPV), 3 DOSE, SUBCUT OR IM 02/07/1997,01/27/1993,1991,1991 (M-M-R II/PRIORIX)(12 MO UP) MEASLES, MUMPS AND RUBELLA VIRUS VACCINE, 0.5 ML IM/SUBCUT 02/07/1997,10/28/1992 (TDVAX)(7 YRS UP) TETANUS AN D DIPHTHERIA TOXOIDS, ADSORBED (2 LF OF TETANUS TOXOID AND 2 LF OF DIPHTHERIA TOXOID), 0.5ML (PF), IM 01/15/2006 (VARIVAX)(12 MOS UP)VARICELL A VIRUS VACCINE (PF) 0.5 ML, SUB CUT 10/31/2013,07/31/1996 HIB, Unspecified Formulation 10/28/1992, 02/03/1992,1991,1991 Hepatitis B Vaccine 08/17/1997,03/09/1997,1996 Influenza Seasonal Unspecifi ed Formulation IM 04/13/2016,04/14/2014,05/21/2010 Influenza Vaccine Split 3+ Yrs PF IM 04/19/2015 Skin Test TB 04/10/2016, 5,11/02/2013,2013 Family History Medical History Relation Name Comments Healthy Brother Alcohol abuse Father Bipolar Disorder Father Diabetes Father Multiple Sclerosis Father Alzheimer's Disease Maternal Grandfather Diabetes Maternal Grandfather Diabetes Maternal Grandmother Diabetes Mother Diabetes Paternal Grandmother Heart Disease Paternal Grandmother Colon Cancer Neg Hx Relation Name Status Comments Brother Alive Father Alive Maternal Grandfather Alive Maternal Grandmother Alive Mother Alive Paternal Grandfather Paternal Grandmother Social History Tobacco Use Types Packs/Day Years Used Date Smoking Tobacco: Never Smokeless Tobacco: Never Tobacco Cessation:Counseling Given: No Alcohol Use Standard Drinks/Week Comments No 0 (1 standard drink = 0.6 oz pur e alcohol) rarely Comments No Sex and Gender Information Value Date Recorded Sex Assigned at Not on file Legal Sex Female 3:43 AM MANAGER DESKTOP Gender Identity Not on file Sexual Orientation Not on file Occupation Industry Job Start Date Job End Date Not on file Not on file Not on file Not on file Last Filed Vital Signs Vital Sign Reading Time Taken Comments Blood Pressure 110/78 02/12/2018 9:36 AM CDT Pulse 128 09/05/2018 11:00 AM CDT Temperature 37.1 C (98.8 F) 09/05/2018 11:00 AM CDT Respiratory Rate 19 09/05/2018 11:00 AM CDT Oxygen Saturation 98% 09/05/2018 11:00 AM CDT Inhaled Oxygen Concentration - - Weight 113.4 kg (250 lb) 07/12/2020 4:03 PM MANAGER DESKTOP Height 162.6 cm (5' 4 ) 07/12/2020 4:03 PM MANAGER DESKTOP Body Mass Index 42.91 07/12/2020 4:03 PM MANAGER DESKTOP Plan of Treatment Upcoming Encounters Date Type Department Care Team (Late st Contact Info) Description 08/05/2024 9:30 AM MANAGER DESKTOP Appointment [facility] [address] [place] [id number] Jaydon Chase MD [address] [place] [address] Health Maintenance Due Date Last Done Comments Preventative Visit-Managed Medicaid 11/27/2017 11/26/2016, 01/17/2016, 11/02/2015, Additional history exists DTAP/TDAP/TD VACCINES (10 - Td or Tdap) 09/25/2023 09/24/2013, 01/08/2010, 01/15/2006, Additional history exists INFLUENZA VACCINE (#1) 2024 9, 04/13/2016, 04/12/2016, Additional history exists CERVICAL CANCER SCREENING 02/21/20262022, 11/02/2015, 02/11/2008 HEPATITIS B VACCINES Completed 08/17/1997, 08/17/1997, 03/09/1997, Additional history exists HPV VACCINES Completed 02/21/2009, 09/15, 08/04/2008 Procedures Procedure Name Priority Date/Time Associated Diagnosis Comments US DETAIL + TV Routine 05/12/2024 3:22 PM MANAGER DESKTOP screening for malformation using ultrasonics CERV/VAG CYTO SCREEN PAP RLFX HPV Routine 11/02/2015 12:00 AM CDT from Last 3 Months or Most Recently Relevant to Health Maintenance Results * US DETAIL + TV (05/12/2024 3:22 PM MANAGER DESKTOP) Anatomical Region Laterality Modality Pelvis Ultrasound 05/12/2024 2:31 PM MANAGER DESKTOP Narrative 05/12/2024 3:31 PM MANAGER DESKTOP STL COMP ----- Pat. Name: ANNI BRYANT Study Date: 05/12/2024 2:31pm Pat. NO: [id number] Referring MD: JAYDON CHASE MD Site: [place] Personal Chef: Carol Ann Adams RDMS : 1990 Age: 33 ----- INDICATION ----- Anatomy Survey Maternal Care for Low Transverse Scar from x 1 Previous Delivery (Previous ) Maternal Obesity (BMI<40) Complicating Screening, Other Specified G1 pre-e CODING ----- Diagnoses Z3A.21: Weeks of gestation Z36.89: Encounter to establish gestational age using ultrasound O99.212: Obesity complicating O34.211: Maternal care for low transverse scar from previous delivery Z36.3: Encounter for screening for malformations Procedures 75023: Ultrasound, uterus, real time with image documentation, and maternal evaluation plus detailed anatomic examination, transabdominal approach 03693: Ultrasound, uterus, real time with image documentation HISTORY ----- OB History 2. Para 1 T1L1 MATERNAL ASSESSMENT ----- Physical Exam Weight 98 kg. Initial weight 95 kg, 210 lb. BMI 38.26 kg/m . Initial BMI 37.20 kg/m . Weight gain 3 kg, 6 lb METHOD ----- Transabdominal and transvaginal ultrasound examination ----- Holt . Number of fetuses: 1 DATING ----- Method of dating: based on stated ANA GA by prior assessment 21 w + 2 d ANA by prior assessment: 09/20/2024 Ultrasound examination on: 05/12/2024 GA by U/S based upon: AC, BPD, EFW, Femur, HC GA by U/S 20 w + 6 d ANA by U/S: 09/23/2024 Assigned: based on stated ANA, selected on 05/12/2024 Assigned GA 21 w + 2 d Assigned ANA: 09/20/2024 BIOMETRY ----- BPD 47.9 mm 20w 3d 19% Hadlock OFD 62.9 mm 21w 3d 57% Tejas HC 178.9 mm 20w 2d 8% Hadlock Cerebellum tr 20.5 mm 20w 2d 20% Manuel Nuchal fold 3.2 mm AC 162.2 mm 21w 2d 43% Hadlock Femur 35.7 mm 21w 2d 41% Hadlock Humerus 32.1 mm 20w 5d 27% Tejas HC / AC 1.10 16% Nicolaides Weight Calculation: EFW 404 g 21w 0d 38% Hadlock EFW (lb,oz) 0 lb 14 oz EFW by Hadlock ([id number]) Head / Face / Neck Biometry: Professor Of Music 4.7 mm CM 3.7 mm 8% Nicolaides Outer IOD 30.5 mm 19w 5d 5% Tejas Extremities / Bony Struc Biometry: FL / BPD 0.75 FL / HC 0.20 FL / AC 0.22 GENERAL EVALUATION ----- Cardiac activity present. FHR 153 bpm. movements: present. Presentation: breech Placenta: Placental site: anterior not low Umbilical cord: Cord vessels: 3 vessel cord. Insertion site: placental insertion: normal Amniotic fluid: Amount of AF: normal amount. MVP 5.4 cm ANATOMY ----- The following structures appear normal: Head / Neck Cranium. Lateral ventricles. Choroid plexus. Midline falx. Cavum septi pellucidi. Cerebellum. Cisterna magna. Thalami. Nuchal fold. Face Lips. Profile. Nose. Palate. Orbits. Heart / Thorax 4-chamber view. RVOT view. LVOT view. 3-vessel view. 6-iesswy-kmcmbtv view. Situs. Aortic arch view. Ductal arch view. Superior vena cava. Inferior vena cava. High short axis view. Cardiac rhythm. Diaphragm. Abdomen Stomach. Kidneys. Bladder. Spine Cervical spine. Thoracic spine. Lumbar spine. Sacral spine. Extremities / Arms. Right hand. Left hand. Legs. Right foot. Left foot. Skeleton MATERNAL STRUCTURES ----- Cervix Visualized Approach - Transvaginal: Cervical length 44.0 mm Right Ovary Normal Size 27 mm x 26 mm x 12 mm. Vol 4.3 cm Left Ovary Normal Size 26 mm x 21 mm x 14 mm. Vol 3.9 cm GROWTH OVERVIEW ----- Exam date GA BPD (mm) HC (mm) AC (mm) FL (mm) HL (mm) EFW (g) 05/12/2024 21w 2d 47.9 19% 178.9 8% 162.2 43% 35.7 41% 32.1 27% 404 38% COMMENT ----- Patient's name and date of were verified by the oil well engineer before the exam. Pia Stephenson was present for the transvaginal ultrasound and served as a loom changer. IMPRESSION ----- Viable at 21 weeks gestation. Patient has a history of a previous C- section and LEEP procedure. Patient reports low risk NIPT. The biometry is consistent with the established gestational age No structural malformations were identified Amniotic fluid volume is normal Anterior placenta with normal placental cord insertion appreciated; placenta is not low-lying and there are no ultrasound findings to suggest the presence of a placenta accreta spectrum disorder Transvaginal ultrasound was performed. Cervical length is normal without funneling. There is a fairly large nabothian cysts in the mid cervix; this is a normal finding and is not associated with adverse outcome. Ultrasound cannot identify all structural malformations Recommend a follow-up ultrasound at 32 to 36 weeks gestation to assess growth and development Procedure Note Bhupinder Hinojosa MD - 05/12/2024 STL COMP ----- Pat. Name:Eladia BRYANT Date:05/12/2024 2:31pm Pat. NO: [id number] MD:JAYDON CHASE [facility]Carol Ann Adams RDMS :1990Age:33 ----- INDICATION ----- Anatomy Survey Maternal Care for Low Transverse Scar from x 1 Previous Delivery (Previous ) Maternal Obesity (BMI<40) Complicating Screening, Other Specified G1 pre-e CODING ----- Diagnoses Z3A.21: Weeks of gestation Z36.89: Encounter to establish gestational ageusing ultrasound O99.212: Obesity complicating O34.211: Maternal care for low transverse scarfrom previous delivery Z36.3: Encounter for screening formalformations Procedures 38024: Ultrasound, uterus, real time withimage documentation, and maternal evaluation plus detailed anatomic examination,transabdominal approach 11914: Ultrasound, uterus, real time withimage documentation HISTORY ----- OB History 2. Para 1 T1L1 MATERNAL ASSESSMENT ----- Physical Exam Weight 98 kg. Initial weight 95 kg, 210 lb. BMI38.26 kg/m . Initial BMI 37.20 kg/m . Weight gain 3 kg, 6 lb METHOD ----- Transabdominal and transvaginal ultrasound examination ----- Holt . Number of fetuses: 1 DATING ----- Method of dating:based on stated ANA GA by prior [id number] w + 2 d ANA by prior assessment:09/20/2024 Ultrasound examination on:05/12/2024 GA by U/S based upon:AC, BPD, EFW, Femur, HC GA by U/S20 w + 6 d ANA by U/S:09/23/2024 Assigned:based on stated ANA, selected on 05/12/2024 Assigned GA21 w + 2 d Assigned ANA:09/20/2024 BIOMETRY ----- BPD 47.9 mm 20w 3d19% Hadlock OFD 62.9 mm 21w 3d57% Tejas HC 178.9 mm 20w 2d8% Hadlock Cerebellum tr 20.5 mm 20w 2d20% Manuel Nuchal fold 3.2 mm AC 162.2 mm 21w 2d43% Hadlock Femur 35.7 mm 21w 2d41% Hadlock Humerus 32.1 mm 20w 5d27% Tejas HC / AC 1.10 16%Nicolaides Weight Calculation: EFW 404 g 21w 0d 38%Hadlock EFW (lb,oz) 0 lb 14 oz EFW by Hadlock ([id number]) Head / Face / Neck Biometry: Professor Of Music 4.7 mm CM 3.7 mm 8%Nicolaides Outer IOD 30.5 mm 19w 5d 5%Tejas Extremities / Bony Struc Biometry: FL / BPD 0.75 FL / HC 0.20 FL / AC 0.22 GENERAL EVALUATION ----- Cardiac activity present. FHR 153 bpm. movements: present.Presentation: breech Placenta: Placental site: anterior not low Umbilical cord: Cord vessels: 3 vessel cord. Insertion site: placentalinsertion: normal Amniotic fluid: Amount of AF: normal amount. MVP 5.4 cm ANATOMY ----- The following structures appear normal: Head / Neck Cranium. Lateral ventricles. Choroid plexus.Midline falx. Cavum septi pellucidi. Cerebellum. Cisterna magna. Thalami. Nuchal fold. Face Lips. Profile. Nose. Palate. Orbits. Heart / Thorax 4-chamber view. RVOT view. LVOT view. 3-vesselview. 6-gtgwwv-irofvvl view. Situs. Aortic arch view. Ductal arch view. Superior vena cava. Inferiorvena cava. High short axis view. Cardiac rhythm. Diaphragm. Abdomen Stomach. Kidneys. Bladder. Spine Cervical spine. Thoracic spine. Lumbar spine.Sacral spine. Extremities / Arms. Right hand. Left hand. Legs. Right foot.Left foot. Skeleton MATERNAL STRUCTURES ----- Cervix Visualized Approach - Transvaginal: Cervical length 44.0 mm Right Ovary Normal Size 27 mm x 26 mm x 12 mm. Vol 4.3 cm Left Ovary Normal Size 26 mm x 21 mm x 14 mm. Vol 3.9 cm GROWTH OVERVIEW ----- Exam date GA BPD (mm) HC (mm) AC (mm) FL(mm) HL (mm) EFW (g) 05/12/2024 21w 2d 47.9 19% 178.9 8% 162.2 43%35.7 41% 32.1 27% 404 38% COMMENT ----- Patient's name and date of were verified by the oil well engineer beforethe exam. Pia Stephenson was present for the transvaginal ultrasound and served as achaperone. IMPRESSION ----- Viable at 21 weeks gestation. Patient has a history of aprevious C- section and LEEP procedure. Patient reports low risk NIPT. The biometry is consistent with the established gestational age No structural malformations were identified Amniotic fluid volume is normal Anterior placenta with normal placental cord insertion appreciated;placenta is not low-lying and there are no ultrasound findings to suggest the presence of a placenta accreta spectrum disorder Transvaginal ultrasound was performed. Cervical length is normal withoutfunneling. There is a fairly large nabothian cysts in the mid cervix; this is a normal finding and is not associated withadverse outcome. Ultrasound cannot identify all structural malformations Recommend a follow-up ultrasound at 32 to 36 weeks gestation to assessfetal growth and development us Jaydon Chase MD US ORDERABLES Final Result * CERV/VAG CYTOPATH, THIN PREP IMAGR RFLX HPV (CP) (11/02/2015 12:00 AM CDT) CLINICAL INFORMATION [facility] Comment: Routine exam WELL WOMAN EXAM LAST MENSTRUAL PERIOD [facility] Comment:10/05/15 PREV PAP: [facility] Comment:Information not prov ided PREV BX: [employer] [facility] Comment:Information not prov ided SOURCE [facility] Comment:[employer] ADEQUACY: [facility] Comment: Satisfactory for evaluation. Endocervical/transformation zone component present. INTERPRETATION [facility] Comment:Negative for intraep ithelial lesion or malignancy. CYTOLOGY INFECTION Q [facility] Comment: Shift in vaginal maureen suggestive of bacterial vaginosis. COMMENT [facility] Comment: This Pap test has been evaluated with computer assisted technology. TAX SERVICES SPECIALIST: QU [facility] Comment: MLO, CT(ASCP) CT screening location: [place] [address] [place] [address] Test Performed at: [facility] [employer] [address] DEBBIE CHOPRA MD 11/02/2015 Delphine Lua [employer] VISUAL DESIGNER PATHOLOGY/CYTOLOGY ORDERABLES F inal Result Performing Organization Address City/State/[facility] Co de Phone Number [facility] [address] [place] [address] from Last 3 Months or Most Recently Relevant to Health Maintenance Insurance MEDICAID [place] Advance Directives For more information, please contact: [phone] * Full Code (Latest Code Status on File) Date Activated Date Inactivated Comments 12/21/2013 9:08 PM 12/22/2013 6:32 PM Care Teams Ror Engineer Relationship Specialty Start Date End Date Soren Mart MD PCP - General 02/10/09
--- OUTSIDE RECORDS SUMMARY | 2024-07-28 11:46 | XMS_ITS | Patient Health Summary ---
Author Organization [facility] Address [address] [place] [address] Care Team Providers Care Fleet Coordinator Name Role Phone Joy Gardner GWEN-SCOOPER Primary Care Provider + Note from [facility],non-owned Affiliates and Associated Physician Practices is amultiple site organization consisting of ambulatory clinics and hospital sitesin [place], [place], [place] and [place]. This disclosure is being madepursuant to the Care Everywhere program and may not contain all information available regarding this patient. Last updated 18.[facility] Allergies No known active allergies Medications * Be aware that medications may not be up to date on this document. Alwaysverify current medications with the patient. * busPIRone (BUSPAR) 10 MG tablet buspirone 10 mg tablet TAKE 1 TABLET BY MOUTH THREE TIMES DAILY * amphetamine-dextroamphetamine (ADDERALL) 20 MG tablet(Started 01/29/2021) Take 20 mg by mouth 2 times daily * PARoxetine (PAXIL) 30 MG tablet(Started 02/08/2021) Take 30 mg by mouth once daily * celecoxib (CELEBREX) 200 MG capsule Take 1 capsule by mouth once daily * ferrous sulfate 325 (65 FE) MG tablet(Started 03/08/2021) Take 1 (one) tablet by mouth once daily Take one tablet at the same time as your Vitamin C (ascorbic acid). 3 refills by 03/08/2022 * ascorbic acid (VITAMIN C) 500 MG tablet(Started 03/08/2021) Take 1 (one) tablet by mouth once daily Take 1 tablet at the same time as your ferrous sulfate (iron tablet). 3 refills by 03/08/2022 * prazosin (MINIPRESS) 2 MG capsule(Started 03/08/2021) Take 1 (one) capsule by mouth at bedtime 3 refills by 03/08/2022 Active Problems Problem Noted Date Diagnosed Date Obesity (BMI 30-39.9) 02/16/2021 Multiple joint pain 08/09/2020 Daytime hypersomnia 07/24/2020 ADD (attention deficit disorder) 12/21/2013 Thoracic outlet syndrome 04/25/2011 Anxiety disorder 07/17/2002 Depressive disorder 07/17/2000 Immunizations * INFLUENZA VACCINE, TRIV. (AFLURIA, FLUZONE TRIVALENT; 6MO+) (IIV3)(Given 04/13/2016, 04/14/2014, 05/21/2010) * Covid Pfizer primary monovalent 12+ yr 0.3mL Purple cap(Given 10/12/2020, 09/14/2020) * DTaP VACCINE IM (6wk-6yrs)(Given 12/15/2005, 02/07/1997, 01/27/1993, 02/03/1992, 1991, 1991) * FLU VACCINE TRI IIV3 SPLIT PF IM (FLUVIRIN)(Given 04/19/2015) * HEP B VACCINE, ADULT 3 DOSE(Given 08/17/1997, 03/09/1997, 02/07/1997) * HIB VACCINE(Given 10/28/1992, 02/03/1992, 1991, 1991) * MMR(Given 02/07/1997, 10/28/1992) * POLIO IPV(Given 02/07/1997, 01/27/1993, 1991, 1991) * TDAP (7yrs+)(Given 09/24/2013) * Td (Adult), 2 Lf Tetanus Toxoid, Adsorbed, Pf(Given 01/15/2006) * VARICELLA(Given 10/31/2013, 07/31/1996) Social History Tobacco Use Types Packs/Day Years [...] Mass Index 39.36 03/08/2021 1:33 PM CDT Procedures * WI MULTIPLE SLEEP LATENCY TEST(Performed 02/23/2021) Performed for Daytime hypersomnia, Obesity (BMI 30-39.9), Excessive daytime sleepiness, Chronic fatigue, Chronic insomnia, Inadequate sleep hygiene * WI POLYSOM 6/> YRS 4/> GOKUL(Performed 02/22/2021) Performed for Daytime hypersomnia, History of anemia, Obesity (BMI 30-39.9), Excessive daytime sleepiness, Chronic fatigue, Chronic insomnia * VITAMIN D 25-HYDROXY(Performed 02/20/2021) Performed for Daytime hypersomnia, History of anemia, Obesity (BMI 30-39.9), Excessive daytime sleepiness, Chronic fatigue, Chronic insomnia * IRON + TIBC + FERRITIN(Performed 02/20/2021) Performed for Daytime hypersomnia, History of anemia, Obesity (BMI 30-39.9), Excessive daytime sleepiness, Chronic fatigue, Chronic insomnia * VITAMIN B12(Performed 02/20/2021) Performed for Daytime hypersomnia, History of anemia, Obesity (BMI 30-39.9), Excessive daytime sleepiness, Chronic fatigue, Chronic insomnia * TSH(Performed 02/20/2021) Performed for Daytime hypersomnia, History of anemia, Obesity (BMI 30-39.9), Excessive daytime sleepiness, Chronic fatigue, Chronic insomnia * METHYLMALONIC ACID BLOOD(Performed 02/20/2021) Performed for Daytime hypersomnia, History of anemia, Obesity (BMI 30-39.9), Excessive daytime sleepiness, Chronic fatigue, Chronic insomnia * FOLATE(Performed 02/20/2021) Performed for Daytime hypersomnia, History of anemia, Obesity (BMI 30-39.9), Excessive daytime sleepiness, Chronic fatigue, Chronic insomnia * CBC W/O DIFFERENTIAL(Performed 02/20/2021) Performed for Daytime hypersomnia, History of anemia, Obesity (BMI 30-39.9), Excessive daytime sleepiness, Chronic fatigue, Chronic insomnia * BASIC METABOLIC PANEL (CALCIUM TOTAL)(Performed 02/20/2021) Performed for Daytime hypersomnia, History of anemia, Obesity (BMI 30-39.9), Excessive daytime sleepiness, Chronic fatigue, Chronic insomnia Results * WI MULTIPLE SLEEP LATENCY TEST (02/23/2021 11:28 AM CDT) Bert Narvaez MD - 02/23/2021 11:28 AM CDT Bert Graham MD 02/23/2021 11:32 AM Evy OLMEDO PROCEDUR E/MINOR SURGICAL ORDERABLES * WI POLYSOM 6/> YRS 4/> GOKUL (02/22/2021 12:48 PM CDT) Bert Narvaez MD - 02/22/2021 12:48 PM CDT Bert Graham MD 02/22/2021 12:50 PM [facility] Accredited by the [employer] [facility], First Floor [address] [place] [address]. [place] [address] Telephone : [phone] Medical Records Patient Name: Bel Lee : 1990 Date of Study: 02/20/2021 Referring Physician: NA Holm Type of Montage: Respiratory Scoring System: [facility] FULL NIGHT DIAGNOSTIC POLYSOMNOGRAM INTERPRETATION (02/20/2021) Procedure: The polysomnogram was performed with a polysomnography technologist in attendance. Central, occipital, and temporal EEG, EOG, submentalis, EMG, nasal thermistor, nasal pressure, thoracoabdominal motion, anterior tibialis EMG, snore sensor, and pulse oximetry were monitored. Sleep stages, periodic limb movements, and EEG arousals were scored in 30-second epochs according to the AASM Scoring Manual. Apnea-hypopnea index was calculated using the recommended definition of hypopnea for scoring events. Data acquisition, collection, and scoring have been validated and clinically correlated. Sleep History: Ms. Bel Lee, a 30 year old female, was referred to the [facility] by NA Holm for the evaluation of suspected obstructive sleep apnea (MARIA ALEJANDRA). Current Outpatient Medications: amphetamine-dextroamphetamine (ADDERALL) 20 MG tablet, Take 20 mg by mouth 2 times daily, Disp: , Rfl: busPIRone (BUSPAR) 10 MG tablet, buspirone 10 mg tablet TAKE 1 TABLET BY MOUTH THREE TIMES DAILY, Disp: , Rfl: celecoxib (CELEBREX) 200 MG capsule, Take 1 capsule by mouth once daily, Disp: , Rfl: PARoxetine (PAXIL) 30 MG tablet, Take 30 mg by mouth once daily, Disp: , Rfl: DIAGNOSTIC STUDY Sleep Architecture: During this diagnostic study, the patient was monitored from 1:35 pm to 9:58 am. The patient slept for 422 minutes and had normal sleep efficiency of 83.8%. The patient's initial sleep latency was within normal limits at 13 minutes. The initial REM latency was prolonged at 248 minutes. The sleep architecture was as follows: stage N1: 13.7%; stage N2: 62.8%; stage N3: 11.8%; stage REM: 11.6%. Respiratory Analysis: The patient's overall apnea-hypopnea index (AHI) was within normal limits at 0.9 per hour while the respiratory effort-related arousal index was increased at 10.9 per hour. The overall respiratory disturbance index (RDI) was 11.8 per hour. The patient slept entirely in nonsupine positions (lateral and prone) during the diagnostic study. The REM AHI was 3.7 per hour while the REM RERA index was 25.7 per hour. There were 4 obstructive apneas, 0 central apneas, 0 mixed apneas, 2 hypopneas, and 77 respiratory effort-related arousals (RERA). There was no evidence of periodic breathing. Oximetry Data: The minimum oxygen saturation was within normal limits at 92% during REM sleep and within normal limits at 92% during non-REM sleep. The time spent with oxygen saturation less than 90% was 0 minutes of the total diagnostic sleep time. Snoring Profile: Faint, rare snoring was detected during this study. Periodic Limb Movements: The patient's periodic limb movement index was within normal limits at 9.3 per hour. EEG Profile: The patient's total arousal index was elevated at 21 per hour. Approximately 56% of the arousals was due to respiratory events, 10% was due to leg movements, and 34% was due to spontaneous arousals. There was no epileptiform activity during sleep. Cardiac Profile: EKG showed normal sinus rhythm. No clinically significant arrhythmia was noted. Parasomnias: No parasomnia was noted during this diagnostic study. IMPRESSION: 1. Mild upper airway resistance syndrome (UARS), classified as obstructive sleep apnea based on the International Classification of Sleep Disorders-3rd edition, worse during REM sleep RECOMMENDATIONS: 1. Suggest therapeutic continuous positive airway pressure (CPAP) or oral appliance device trial Bert Graham MD, [facility], [facility], [facility] [employer], [facility] Professor of Internal Medicine Adjunct Sand Operator of Neurology Division of Pulmonary, Critical Care, and Sleep Medicine [facility] This note was electronically signed on 02/22/2021. CC: No referring provider defined for this encounter. NA Holm Evy OLMEDO PROCEDUR E/MINOR SURGICAL ORDERABLES * (ABNORMAL) IRON + TIBC + FERRITIN (02/20/2021 3:15 PM CDT) Iron 54 40 - 190 mcg/dL [facility] TIBC 373 250 - 450 mcg/dL (calc) [facility] % Saturation 14(L) 16 - 45 % (calc) [facility] Ferritin 21 16 - 154 ng/mL [facility] Comment: Test Performed at: [employer] [facility] [address] [place] [address] ZURDO COMBS DO,MPH Blood BLOOD SPECIMEN / Unknown 02/20/2021 3:15 PM CDT 02/20/2021 3:16 PM CDT Evy OLMEDO LAB - CH EMISTRY ORDERABLES [facility] [address] [place] [address] * METHYLMALONIC ACID BLOOD (02/20/2021 3:15 PM CDT) Methylmalonic Acid 205 87 - 318 nmol/L [facility] Comment: This test was developed and its analytical performance characteristics have been determined by [employer] [place], [place]. It has not been cleared or approved by the U.S. Food and Drug Administration. This assay has been validated pursuant to the CLIA regulations and is used for clinical purposes. Test Performed at: [facility] [id number] [place] [address] LUCINDA LAU MD,PHD Blood BLOOD SPECIMEN / Unknown 02/20/2021 3:15 PM CDT 02/20/2021 3:16 PM CDT Evy Perez APNP-SCOOPER LAB - CH EMISTRY ORDERABLES [facility] [address] [place] [address] * VITAMIN D 25-HYDROXY (02/20/2021 3:15 PM CDT) Vitamin D, 25 Hydroxy 31 30 - 100 ng/mL [facility] Comment: Vitamin D Status 25-OH Vitamin D: Deficiency: <20 ng/mL Insufficiency: 20 - 29 ng/mL Optimal: > or = 30 ng/mL For 25-OH Vitamin D testing on patients on D2-supplementation and patients for whom quantitation of D2 and D3 fractions is required, the QuestAssureD(TM) 25-OH VIT D, (D2,D3), LC/MS/MS is recommended: order code 12917 (patients >2yrs). See Note 1 Note 1 For additional information, please refer to http://education.[employer]/faq/NJW256 (This link is being provided for informational/ educational purposes only.) REPORT COMMENT: FASTING:NO Test Performed at: [facility] [address] [place] [address] ZURDO COMBS DO,MPH Blood BLOOD SPECIMEN / Unknown 02/20/2021 3:15 PM CDT 02/20/2021 3:16 PM CDT Evy Ramone Chris [facility] LAB - CH EMISTRY ORDERABLES Performing Organization Address [facility] de Phone Number [facility] [address] [place] [address] * (ABNORMAL) CBC W/O DIFFERENTIAL (02/20/2021 3:15 PM CDT) Pathologist [facility] White Blood Cell Count 9.4 3.8 - 10.8 Thousand/u L [facility] RBC 4.39 3.80 - 5.10 Million/uL [facility] Hemoglobin 13.2 11.7 - 15.5 g/dL [facility] Hematocrit 41.7 35.0 - 45.0 % [facility] MCV 95.0 80.0 - 100.0 fL [facility] MCH 30.1 27.0 - 33.0 pg [facility] MCHC 31.7(L) 32.0 - 36.0 g/dL [facility] RDW 12.8 11.0 - 15.0 % [facility] Platelet Count 313 140 - 400 Thousand/u L [facility] MPV 10.1 7.5 - 12.5 fL [facility] Comment: Test Performed at: [employer] [facility] [address] ZURDO COMBS DO,MPH Blood BLOOD SPECIMEN / Unknown 02/20/2021 3:15 PM CDT 02/20/2021 3:16 PM CDT Evy Ramone Chris [facility] LAB - HE MATOLOGY ORDERABLES Performing Organization Address [facility] de Phone Number [facility] [address] [place] [address] * BASIC METABOLIC PANEL (CALCIUM TOTAL) (02/20/2021 3:15 PM CDT) [facility] Glucose 90 65 - 139 mg/dL [facility] Comment: Non-fasting reference interval BUN 11 7 - 25 mg/dL [facility] Creatinine 0.90 0.50 - 1.10 mg/dL [facility] eGFR by MDRD 86 > OR = 60 mL/min/1. 73m2 [facility] eGFR by MDRD 100 > OR = 60 mL/min/1. 73m2 [facility] BUN/Creatinine Ratio NOT APPLICABLE 6 - 22 (calc) [facility] Sodium 140 135 - 146 mmol/L [facility] Potassium 4.7 3.5 - 5.3 mmol/L [facility] Chloride 107 98 - 110 mmol/L [facility] CO2 28 20 - 32 mmol/L [facility] Calcium 9.5 8.6 - 10.2 mg/dL [facility] Comment: Test Performed at: [employer] [facility] [place] [address] ZURDO COMBS DO,MPH Blood BLOOD SPECIMEN / Unknown 02/20/2021 3:15 PM CDT 02/20/2021 3:16 PM CDT [facility] LAB - CH EMISTRY ORDERABLES Performing Organization Address [facility] Co de Phone Number [facility] [phone] [place] [address] * FOLATE (02/20/2021 3:15 PM CDT) Pathologist [facility] Folate 12.4 ng/mL [facility] Comment: Reference Range Low: <3.4 Borderline: 3.4-5.4 Normal: >5.4 Test Performed at: [employer] [facility] [address] ZURDO COMBS DO,MPH Blood BLOOD SPECIMEN / Unknown 02/20/2021 3:15 PM CDT 02/20/2021 3:16 PM CDT [facility]y [facility] LAB - EMISTRY ORDERABLES Performing Organization Address [facility] de Phone Number [facility] [phone] [place], [place] [id number] * VITAMIN B12 (02/20/2021 3:15 PM CDT) Vitamin B12 296 200 - 1100 pg/mL [facility] Comment: Please Note: Although the reference range for vitamin B12 is 200-1100 pg/mL, it has been reported that between 5 and 10% of patients with values between 200 and 400 pg/mL may experience neuropsychiatric and hematologic abnormalities due to occult B12 deficiency; less than 1% of patients with values above 400 pg/mL will have symptoms. Test Performed at: [employer] [facility] [employer] [facility] [address] ZURDO COMBS DO,MPH Blood BLOOD SPECIMEN / Unknown 02/20/2021 3:15 PM CDT 02/20/2021 3:16 PM CDT Evy A Chris APYEIMY-SCOOPER LAB - CH EMISTRY ORDERABLES Performing Organization Address [facility] Co de Phone Number [facility] [address] [place] [address] * TSH (02/20/2021 3:15 PM CDT) TSH 1.92 mIU/L [facility] Comment: Reference Range > or = 20 Years 0.40-4.50 Ranges First trimester 0.26-2.66 Second trimester 0.55-2.73 Third trimester 0.43-2.91 Test Performed at: [employer] [address] [place] [address] ZURDO COMBS DO,MPH Blood BLOOD SPECIMEN / Unknown 02/20/2021 3:15 PM CDT 02/20/2021 3:16 PM CDT Evy A Chris AP-SCOOPER LAB - CH EMISTRY ORDERABLES Performing Organization Address City/[facility] Co de Phone Number [facility] [address] [place] [address] Care Teams Fleet Coordinator Relationship Specialty Start Date End Date Joy Gardner APRN-CNP [address] [address] PCP - General 02/13/21
--- OUTSIDE RECORDS SUMMARY | 2024-07-28 11:46 | XMS_ITS | Clinical Summary ---
Author Organization [facility] Address [address] [facility] [address] [place] [address] Care Team Providers Care Post Graduate Intern Name Role Phone Joy Gardner GWEN-TABLEAU ANALYST Primary Care Provider + Source Comments [facility],non-owned Affiliates and Associated Physician Practices is amultiple site organization consisting of ambulatory clinics and hospital sitesin [place], [place], [place] and [place]. This disclosure is being madepursuant to the Care Everywhere program and may not contain all information available regarding this patient. Last updated 18.[facility] [employer] Allergies No known active allergies Medications * [...] LURIA, FLUZONE TRIVALENT; 6MO+) (IIV3) 04/13/2016,04/14/2014,05/21/2010 Covid Edevate primary monoval ent 12+ yr 0.3mL Purple cap 10/12/2020,09/14/2020 DTaP VACCINE IM (6wk-6yrs) 12/15/2005,,01/27/1993, 992,1991,1991 FLU VACCINE TRI IIV3 SPLIT P F IM (FLUVIRIN) 04/19/2015 HEP B VACCINE, ADULT 3 DOSE 08/17/1997, 7,02/07/1997 HIB VACCINE 10/28/1992, 2,1991, 992 MMR 02/07/1997,10/28/1992 POLIO IPV 02/07/1997, 3,1991, 992 TDAP (7yrs+) 09/24/2013 Td (Adult), 2 Lf Tetanus Tox oid, Adsorbed, Pf 01/15/2006 VARICELLA 10/31/2013,07/31/1996 Family History Medical History Relation Name Comments None Known Brother Alcohol abuse Father Anxiety Disorder Father Bipolar Disorder Father CAD (Coronary Artery Disease) Father Cardiomyopathy Father Depression Father Diabetes; unknown type Father Hypertension Father Multiple Sclerosis Father Sleep Disorder - Other Father roddy c pap Alzheimer's Disease Maternal Grandfather Diabetes; unknown type Maternal Grandfather Diabetes; unknown type Maternal Grandmother Diabetes; unknown type Mother Sleep Disorder - Other Mother insom neil CAD (Coronary Artery Disease) Paternal Grandmother Diabetes; unknown type Paternal Grandmother Relation Name Status Comments Brother Alive Father Alive Maternal Grandfather Maternal Grandmother Mother Alive Paternal Grandfather Paternal Grandmother Social [...] 03/08/2021 1:33 PM CDT Plan of Treatment Health Maintenance Due Date Last Done Comments PAP SMEAR 1990 HIV SCREENING 2006 HEPATITIS C SCREENING 07/15/2009 DTAP/TDAP/TD VACCINES (9 - Td or Tdap) 09/25/2023 09/24/2013, 01/15/2006, 12/15/2005, Additional history exists COVID-19 VACCINE ( season) 2024 10/12/2020, 09/14/2020 INFLUENZA VACCINE (#1) 2024 6, 04/19/2015, 04/14/2014, Additional history exists DEPRESSION SCREENING 06/16/2024 ZOSTER VACCINE (1 of 2) 2041 HIB VACCINE Completed 10/28/1992, 01/15, 1991, Additional history exists HEPATITIS B VACCINE Completed 08/17/1997, 03/09/1997, 02/07/1997 HPV VACCINE Aged Out No longer eligi ble based on patient's age to complete this topic MENINGOCOCCAL (Group B) VACCINE Aged Out No longer eligible based on patient's age to complete this topic MENINGOCOCCAL VACCINE Aged Out No boris sis eligible based on patient's age to complete this topic PNEUMOCOCCAL VACCINE Aged Out No long er eligible based on patient's age to complete this topic Care Teams Post Graduate Intern Relationship Specialty Start Date End Date Joy Gardner APRN-CNP [address] [address] PCP - General 02/13/21
--- OUTSIDE RECORDS SUMMARY | 2024-07-28 11:46 | XMS_ITS | Encounter Summary ---
Author Organization [facility] Address [address] [place] [address] Care Team Providers Care Apparel Sales Leader Name Role Phone Soren Mart MD Primary Care Provider [phone] Encounter Details Date Type Department Care Team (Late st Contact Info) Description 06/04/2006 Outpatient Historical [facility] Internal Medicine [address] [address] Inge Hutson MD NO ADDRESS ON FILE Social History Tobacco Use Types Packs/Day Years Used Date Smoking Tobacco: Never Assessed Comments Unknown Sex and Gender Information Value Date Recorded Sex Assigned at Not on file Legal Sex Female 3:43 AM QUALITY TESTER Gender Identity Not on file Sexual Orientation Not on file documented as of this encounter Plan of Treatment Upcoming Encounters Date Type Department Care Team (Late st Contact Info) Description 08/05/2024 9:30 AM QUALITY TESTER Appointment [facility] [place] [address] [place] [address] Jaydon Powell MD [address] [facility] [address] [facility] [address] [place] [address] documented as of this encounter Visit Diagnoses Not on filedocumented in this encounter Care Teams Apparel Sales Leader Relationship Specialty Start Date End Date Soren Mart MD PCP - General 02/10/09 documented as of this encounter
--- OUTSIDE RECORDS SUMMARY | 2024-07-28 11:46 | XMS_ITS | Encounter Summary ---
Author Organization [facility] Address [address] [place] [address] Care Team Providers Care Doors Prefitter Name Role Phone Soren Mart MD Primary Care Provider [phone] Encounter Details Date Type Department Care Team (Late st Contact Info) Description 06/04/2006 Orders Only [facility] Internal Medicine [address] [address] Inge Hutson MD NO ADDRESS ON FILE Social History Tobacco Use Types Packs/Day Years Used Date Smoking Tobacco: Never Assessed Comments Unknown Sex and Gender Information Value Date Recorded Sex Assigned at Not on file Legal Sex Female 3:43 AM PANELBOARD TANK PUMPER Gender Identity Not on file Sexual Orientation Not on file documented as of this encounter Progress Notes * Inge Hutson MD - 03/30/2008 4:04 AM CDT WEIGHT: 134lbs BLOOD PRESSURE: 110/70 Right Arm Sitting NURSE NAME: Ashanti Rodriguez R CHIEF COMPLAINT blood in stool. HISTORY: HISTORY: 463-TONSILLITIS ACUTE to have T&A tomorrow by ENT and no signs of active infection currently. 578.1-BLOOD IN STOOL developed painless rectal bleeding several days ago, blood was noted on her tissue paper when wiping. She reports having to strain to have a BM and mild abdominal cramping and bloating for several weeks. No fevers or chills, no recent travel, stools do not have foul odor. CURRENT ALLERGY LIST: NO KNOWN DRUG ALLERGY SOCIAL HISTORY: TOBACCO USE: Has no significant smoking history. ALCOHOL: Does not give any significant history of alcohol usage. PHYSICAL EXAMINATION: CONSTITUTIONAL: GENERAL APPEARANCE: Healthy appearing patient in no distress. EARS, NOSE, MOUTH AND THROAT: ORAL: BOTH TONSILS ARE ENLARGED, the tonsils do not have exudate, the tonsils are not erythematous. RESPIRATORY: Clear to auscultation and percussion. Normal respiratory effort. CARDIOVASCULAR: CARDIAC: Regular rhythm. No murmurs, rubs, or gallops. EDEMA/VARICOSITIES OF EXTREMITIES: No edema. LYMPHATICS: No lymphadenopathy in the neck. GASTROINTESTINAL: ABDOMEN: Soft, non-tender, without masses. Bowel sounds active. LIVER/SPLEEN/KIDNEY: No hepatosplenomegaly, tenderness or nodularity. Kidneys not palpable. RECTAL: POSTERIOR FISSURE, no blood on exam finger, SINGLE INTERNAL HEMORRHOID. STOOL/HEMOCCULT: STOOL IS HEMOCCULT POSITIVE. SKIN: SKIN: Warm, dry, no diaphoresis, no significant lesions, irritation, rashes or ulcers. No induration, obvious subcutaneous nodules or tightening. ASSESSMENT/PLAN: 463-TONSILLITIS ACUTE ok to proceed with T&A tomorrow. 578.1-BLOOD IN STOOL MEDICATIONS: from small fissure and mild internal hemorrhoid. Discussed importance of high fiber diet and increasing fluid consumption. HYDROCORTISONE ACETATE RECTAL SUPPOSITORY 25 MG, TAKE DIRECTED, 20 Dispensed, status: NEW PRESCRIPTION, 06/04/2006. LAB ORDERS: Order number: [id number] Test Ordered: HEMOCCULT SINGLE [id number] + PATIENT EDUCATION: Questions were allowed to stated satisfaction. PREVENTIVE COUNSELING The patient was counseled regarding diet. RETURN VISIT : please waive todays co-pay Electronically Signed by: Inge Hutson MD on Wednesday, June 07, 2006 documented in this encounter Plan of Treatment Upcoming Encounters Date Type Department Care Team (Late st Contact Info) Description 08/05/2024 9:30 AM PANELBOARD TANK PUMPER Appointment [facility] [address] [place] [address] Jaydon Powell MD [address] [facility] [address] [facility] [address] [place] [address] documented as of this encounter Visit Diagnoses Not on filedocumented in this encounter Care Teams Doors Prefitter Relationship Specialty Start Date End Date Soren Mart MD PCP - General 02/10/09 documented as of this encounter
--- OUTSIDE RECORDS SUMMARY | 2024-07-28 11:46 | XMS_ITS | Encounter Summary ---
Author Organization [facility] Address [address] [place] [address] Care Team Providers Care School Coordinator Name Role Phone Soren Mart MD Primary Care Provider [phone] Encounter Details Date Type Department Care Team (Late st Contact Info) Description 06/24/2006 Orders Only [facility] Internal Medicine [address] [address] Inge Hutson MD NO ADDRESS ON FILE Social History Tobacco Use Types Packs/Day Years Used Date Smoking Tobacco: Never Assessed Comments Unknown Sex and Gender Information Value Date Recorded Sex Assigned at Not on file Legal Sex Female 3:43 AM JIGSAW OPERATOR Gender Identity Not on file Sexual Orientation Not on file documented as of this encounter Progress Notes * Inge Hutson MD - 11/10/2007 10:59 AM CDT TIME:04:58 pm PATIENT`S HOME PHONE: PATIENT`S WORK PHONE: PATIENT`S INSURANCE: [facility] WHO TOOK THE CALL: Amelia Lee R GENERAL INFORMATION ALTERNATIVE PHONE NUMBER: anmg [phone] or work WHO CALLED: Patient`s mother called. CURRENT ALLERGY LIST: NO KNOWN DRUG ALLERGY PHARMACY NUMBER: [phone] PROBLEMS: feeling terrible, chest tight-wheezing sound, did not go to school today. CONGESTION: Patient complains of chest congestion, complains of head congestion. COUGH:Patient complains of cough. -productive, RUNNY NOSE: Patient complains of runny nose. constant-clear voice hoarse SORE THROAT: Patient complains of sore throat. whole throat very sore- surgical site not healed completely did not take temp SECTION 1: REQUESTED ACTION larry 06/24/06 at 05:01 pm: MEDICATION REQUEST: Patient wants medications and can not come in. DOCTOR`S RESPONSE: romero 06/24/06 at 09:56 pm Amelia, if she is not feeling better today, (fri) would start her on z-sandra, continue mucinex and robitussin. MEDICATIONS: Call in to Pharmacy ZITHROMAX Z-SANDRA ORAL TABLET 250 MG, TAKE DIRECTED, 1 Dispensed, status: NEW PRESCRIPTION, 06/24/2006. FINAL ACTION: larry 06/25/06 at 11:35 am Spoke with patient 06/25/06 at 11:35 am. Mom- I will have her take the OTC med and get antibiotic later if not improving. jrf Electronically Signed by: Amelia Lee on Sunday, June 25, 2006 documented in this encounter Plan of Treatment Upcoming Encounters Date Type Department Care Team (Late st Contact Info) Description 08/05/2024 9:30 AM JIGSAW OPERATOR Appointment [facility] Maternal and Health [facility] [address] [place] [address] Jaydon Powell MD [address] [facility] [address] [facility] [address] [place] [address] documented as of this encounter Visit Diagnoses Not on filedocumented in this encounter Care Teams School Coordinator Relationship Specialty Start Date End Date Soren Mart MD PCP - General 02/10/09 documented as of this encounter
--- OUTSIDE RECORDS SUMMARY | 2024-07-28 11:46 | XMS_ITS | Encounter Summary ---
Author Organization [facility] Address [address] [place] [address] Phone Care Team Providers Care Converting Supervisor Name Role Phone Denny Norman MD Primary Care Provider [phone] Encounter Details Date Type Department Care Team (Late st Contact Info) Description 01/02/2023 Telephone [facility] [address] [place] [address] Provider, None [place] Social History Tobacco Use Types Packs/Day Years Used Date Smoking Tobacco: Never Assessed Comments Unknown Sex and Gender Information Value Date Recorded Sex Assigned at Female 07/09/2023 12:53 PM VACUUM DRIER OPERATOR Legal Sex Female 1:59 PM CDT Gender Identity Female 07/09/2023 12:53 PM VACUUM DRIER OPERATOR Sexual Orientation Straight 07/09/2023 12 :53 PM VACUUM DRIER OPERATOR documented as of this encounter Miscellaneous Notes * Telephone Encounter - Katalina Farias - 01/02/2023 10:38 AM CDT ----- Message from Markie Ty V sent at 12/31/2022 2:03 PM CDT ----- Regarding: New pt New [facility] Primary Provider Request Insurance of patient: Sergio Name of person calling: Bel Lee Relationship to patient: self Preferred phone number: Alternate phone number: n/a Region / Office location preference: [place] Provider preference (male/female, specific provider name): Denny Norman Willing to see someone other than physician, such as [place], resident? yes Patient reason for appointment/any current symptoms: establish care med refills Other information (including need for deposition operator): no documented in this encounter Plan of Treatment Not on file documented as of this encounter Visit Diagnoses Not on filedocumented in this encounter Care Teams Converting Supervisor Relationship Specialty Start Date End Date Denny Norman MD [address] [address] PCP - General Family Medicine 01/08/23 documented as of this encounter
--- OUTSIDE RECORDS SUMMARY | 2024-07-28 11:46 | XMS_ITS | Encounter Summary ---
Author Organization [employer] [facility] Address [address] [place] [address] Care Team Providers Care Insulator Tester Name Role Phone Soren Mart MD Primary Care Provider [phone] Encounter Details Date Type Department Care Team (Late st Contact Info) Description 02/27/2012 Chart Note [facility] [employer] [address] [facility] [address] [place] [address] Radha Mcallister, Physical Therapist Social History Tobacco Use Types Packs/Day Years Used Date Smoking Tobacco: Never Smokeless Tobacco: Never Alcohol Use Standard Drinks/Week Comments No 0 (1 standard drink = 0.6 oz pur e alcohol) Comments No Sex and Gender Information Value Date Recorded Sex Assigned at Not on file Legal Sex Female 3:43 AM ADJUNCT PHYSICS INSTRUCTOR Gender Identity Not on file Sexual Orientation Not on file Occupation Industry Job Start Date Job End Date Not on file Not on file Not on file Not on file documented as of this encounter Progress Notes * Radha Mcallister, Physical Therapist - 02/27/2012 3:56 PM CDT Images from the original note were not included. Physical Therapy Discharge Summary Patient: Bel Lee Date: 02/27/2012 Date of : 1990 Physician: Roque Hernandez Diagnosis: neurogenic thoracic outlet syndrome/brachial plexus lesions Bel Lee was seen from 11/08/11 to 11/12/11 for a total of 2 visits with 0 cancellations and 1 no shows. This patient did not return for further therapy visits following the last session noted above, therefore a complete re-evaluation of status was not completed. Treatments consisted of: HEP Instruction, Posture/Body Mechanics and Neuromuscular Re-Education Therapeutic Exercise to increase ROM and Flexibility. Objective Measurements: see initial evaluation on 11/08/11 The patient discharged from therapy secondary to noncompliance. Please contact me if you have any questions. Thank you for this referral. Radha Mcallister [facility] Therapy Services [address] [place] [address] documented in this encounter Plan of Treatment Upcoming Encounters Date Type Department Care Team (Late st Contact Info) Description 08/05/2024 9:30 AM ADJUNCT PHYSICS INSTRUCTOR Appointment [facility] Maternal and Health [facility] [address] [place] [address] Jaydon Powell MD [address] [facility] [address] [place] [address] documented as of this encounter Visit Diagnoses Not on filedocumented in this encounter Care Teams Insulator Tester Relationship Specialty Start Date End Date Soren Mart MD PCP - General 02/10/09 documented as of this encounter
--- OUTSIDE RECORDS SUMMARY | 2024-07-28 11:47 | XMS_ITS | Encounter Summary ---
Author Organization [facility] Address [address] [place] [address] Care Team Providers Care Face Boss Name Role Phone Soren Mart MD Primary Care Provider [phone] Encounter Details Date Type Department Care Team (Late st Contact Info) Description 07/06/2007 Outpatient Historical [facility] Internal Medicine [address] [address] Inge Hutson MD NO ADDRESS ON FILE Social History Tobacco Use Types Packs/Day Years Used Date Smoking Tobacco: Never Assessed Comments Unknown Sex and Gender Information Value Date Recorded Sex Assigned at Not on file Legal Sex Female 3:43 AM ULTRASONIC WELDING MACHINE OPERATOR Gender Identity Not on file Sexual Orientation Not on file documented as of this encounter Last Filed Vital Signs Vital Sign Reading Time Taken Comments Blood Pressure - - Pulse - - Temperature 37 C (98.6 F) 07/06/2007 11:45 AM ULTRASONIC WELDING MACHINE OPERATOR Respiratory Rate - - Oxygen Saturation - - Inhaled Oxygen Concentration - - Weight 68 kg (150 lb) 07/06/2007 11:45 AM ULTRASONIC WELDING MACHINE OPERATOR Height - - Body Mass Index - - documented in this encounter Plan of Treatment Upcoming Encounters Date Type Department Care Team (Late st Contact Info) Description 08/05/2024 9:30 AM ULTRASONIC WELDING MACHINE OPERATOR Appointment [facility] Maternal and Health [facility] [address] [place] [address] Jaydon Powell MD [address] [place] [address] documented as of this encounter Visit Diagnoses Not on filedocumented in this encounter Care Teams Face Boss Relationship Specialty Start Date End Date Soren Mart MD PCP - General 02/10/09 documented as of this encounter
--- OUTSIDE RECORDS SUMMARY | 2024-07-28 11:47 | XMS_ITS | Encounter Summary ---
Author Organization [facility] Address [address] [place] [address] Care Team Providers Care Cargo Station Worker Name Role Phone Soren Mart MD Primary Care Provider [phone] Encounter Details Date Type Department Care Team (Latest Contact Info) Description 02/06/2009 Outpatient Historical [facility] Soren Mart MD [address] [place] [address] Head Injury, Unspecified Social History Tobacco Use Types Packs/Day Years Used Date Smoking Tobacco: Never Alcohol Use Standard Drinks/Week Comments Not Asked 0 (1 standard drink = 0.6 oz pur e alcohol) Comments No Sex and Gender Information Value Date Recorded Sex Assigned at Not on file Legal Sex Female 3:43 AM INTERN RETAIL Gender Identity Not on file Sexual Orientation Not on file documented as of this encounter Plan of Treatment Upcoming Encounters Date Type Department Care Team (Late st Contact Info) Description 08/05/2024 9:30 AM INTERN RETAIL Appointment [facility] Maternal and Health [facility] [address] [place] [address] Jaydon Powell MD [address] [facility] [address] [facility] [address] [place] [address] documented as of this encounter Visit Diagnoses Diagnosis Head injury, unspecified documented in this encounter Care Teams Cargo Station Worker Relationship Specialty Start Date End Date Soren Mart MD PCP - General 02/10/09 documented as of this encounter
--- OUTSIDE RECORDS SUMMARY | 2024-07-28 11:47 | XMS_ITS | Encounter Summary ---
Author Organization [facility] Address [address] [place] [address] Care Team Providers Care Band Nailer Name Role Phone Soren Mart MD Primary Care Provider [phone] Encounter Details Date Type Department Care Team (Late st Contact Info) Description 09/07/2007 Orders Only [facility] Internal Medicine [address] [address] Inge Hutson MD NO ADDRESS ON FILE Social History Tobacco Use Types Packs/Day Years Used Date Smoking Tobacco: Never Assessed Comments Unknown Sex and Gender Information Value Date Recorded Sex Assigned at Not on file Legal Sex Female 3:43 AM BEAM WORKER Gender Identity Not on file Sexual Orientation Not on file documented as of this encounter Progress Notes * Inge Hutson MD - 11/19/2007 7:35 PM CDT TIME:02:22 pm PATIENT`S HOME PHONE: PATIENT`S WORK PHONE: PATIENT`S INSURANCE: [facility] WHO TOOK THE CALL: Thuan Cohne N Julia GENERAL INFORMATION ALTERNATIVE PHONE NUMBER: [phone] WHO CALLED: Patient`s mother called. CURRENT ALLERGY LIST: NO KNOWN DRUG ALLERGY PHARMACY NUMBER: [phone] [employer] [facility] PROBLEMS: VAGINAL DISCHARGE: Patient complains of vaginal discharge. The symptoms began approximately 3 days ago. brown discharge, odor. denies itching she does not think it is blood, period was a few weeks ago patient does use tampons when on her period SECTION 1: REQUESTED ACTION jennifer 09/07/07 at 02:24 pm: MEDICATION REQUEST: Patient wants medication or an appointment. Med to try? or would you need to see her? DOCTOR`S RESPONSE: romero 09/07/07 at 02:56 pm we can try some metrogel but would have her see orthopedic physician if her sx persist. MEDICATIONS: Call in to Pharmacy [facility] VAGINAL VAGINAL GEL(JELLY) 0.75 % GRAMS, 1 applicator vaginally q hs for 5 nights., 70 Dispensed, status: NEW PRESCRIPTION, 09/07/2007. FINAL ACTION: jennifer 09/07/07 at 03:07 pm Spoke with patient 09/07/07 at 03:07 pm. -mom Called pharmacy at 09/07/07 at 03:07 pm. documented in this encounter Plan of Treatment Upcoming Encounters Date Type Department Care Team (Late st Contact Info) Description 08/05/2024 9:30 AM BEAM WORKER Appointment [facility] [address] [place] [address] Jaydon Powell MD [address] [facility] [address] [place] [address] documented as of this encounter Visit Diagnoses Not on filedocumented in this encounter Care Teams Band Nailer Relationship Specialty Start Date End Date Soren Mart MD PCP - General 02/10/09 documented as of this encounter
--- OUTSIDE RECORDS SUMMARY | 2024-07-28 11:47 | XMS_ITS | Continuity of Care Document ---
Author Organization [facility] Address [address] [facility] [address] [place] [address] Phone Care Team Providers Care Ground Support Equipment Mechanic Name Role Phone Maia Horner Unavailable Unavailable Advance Directives Directive Yes / No Effective Date File Name No Information Encounters Encounter Description Practice Location Reason(s) For Visit Diagnoses Date Provider Providers Copied on Encounter [facility], [address] [place] [address] [address], [place], [place], [id number], [place] tel:[phone] [facility] [place] No Information May-0 9-200 0 Siri Carvalho. [address] [facility] , [address], [place], [address], [place]. tel:[phone] Family History Family Member Type Diagnosis Age At Onset No Information Payers Payer name Insurance type Covered green party ID Authoriza tion(s) No Information Social History Type Description Quantity Date Captured Comments Sex Female Smoking Status No Information Chief Complaint And Reason For Visit No Information Reason For Referral Reason For Referral No Information History Of Present Illness Encounter Date Complaint History Of Prese nt Illness No Information Functional Status Date Functional Assessmen t No Information Instructions Date Instruction Additional Infor mation No Information Assessments Type Assessment Date No Information Patient Care Teams Name Effective Dates (start - stop) Status Members No Information
--- OUTSIDE RECORDS SUMMARY | 2024-07-28 11:47 | XMS_ITS | Encounter Summary ---
Author Organization [facility] Address [address] [place] [address] Care Team Providers Care Professor Of French Name Role Phone Soren Mart MD Primary Care Provider [phone] Encounter Details Date Type Department Care Team (Latest Contact Info) Description 04/27/2008 Outpatient Historical [facility] [place] Conversion, History Urinary Tract Infection, Site not Specified Social History Tobacco Use Types Packs/Day Years Used Date Smoking Tobacco: Never Assessed Comments Unknown Sex and Gender Information Value Date Recorded Sex Assigned at Not on file Legal Sex Female 3:43 AM FIELD TRAFFIC INVESTIGATOR Gender Identity Not on file Sexual Orientation Not on file documented as of this encounter Plan of Treatment Upcoming Encounters Date Type Department Care Team (Late st Contact Info) Description 08/05/2024 9:30 AM FIELD TRAFFIC INVESTIGATOR Appointment [facility] [address] [place] [address] Jaydon Powell MD [address] [facility] [address] [place] [address] documented as of this encounter Procedures Procedure Name Priority Date/Time Associated Diagnosis Comments CHLAMYDIA/N. GONORRHOEAE, DNA Routine 04/27/2008 7:34 PM FIELD TRAFFIC INVESTIGATOR URINE CULTURE Routine 04/27/2008 7:34 PM FIELD TRAFFIC INVESTIGATOR documented in this encounter Results * URINE CULTURE (04/27/2008 7:34 PM FIELD TRAFFIC INVESTIGATOR) FINAL REPORT 50-100,000 colonies/mL Escherichia coli <10,000 colonies/mL Streptococcus Group B -NOTE: In women, recovery of Group B Streptococcus may be significant. However, in non- women, recovery in small quantities suggests contamination with blue urethral maureen. Normal urethral maureen also present. - Phoned report (with read back verified) to [facility] () 04/29/08 10:43:23 -- Faxed report(s): [phone] [facility] SUSCEPTIBILITY PERFORMED ON ESCHERICHIA COLI [facility] 04/27/2008 7:34 PM FIELD TRAFFIC INVESTIGATOR 04/27/2008 8:27 PM FIELD TRAFFIC INVESTIGATOR Narrative Organism Antibiotic Method Susceptibility Escherichia coli AMPICILLIN NNAMDI MCG/ML 2: Susceptible Escherichia coli CEFAZOLIN NNAMDI MCG/ML <=8: Susceptible Escherichia coli AZTREONAM NNAMDI MCG/ML <=8: Susceptible Escherichia coli LEVOFLOXACIN NNAMDI MCG/ML <=1: Susceptible Escherichia coli GENTAMICIN NNAMDI MCG/ML <=0.5: Susceptible Escherichia coli TRIMETHOPRIM/ SULFAMETHOXAZOLE NNAMDI MC G/ML <=10: Susceptible Escherichia coli NITROFURANTOIN NNAMDI MCG/ML <=32: Susceptible us History Conversion MICROBIOLOGY - GENERAL ORDERA BLES Final Result INTERFACE SYSTEM Refer to clinic/hospital department [facility] CLIA# [id number] [address] [place] [address] * CHLAMYDIA/N. GONORRHOEAE, DNA (04/27/2008 7:34 PM FIELD TRAFFIC INVESTIGATOR) CHLAMYDIA TRACHOMATIS DNA NOT DETECTED NOT DETECTED [facility] NEISSERIA GONORRHOEAE DNA NOT DETECTED NOT DETECTED [facility] Comment: Lab test performed by: [facility] [address] [place] [address] ZURDO FIGUEROA MD Specimen of unknown material (specimen) URINE SPECIMEN / Unknown 04/27/2008 7:34 PM FIELD TRAFFIC INVESTIGATOR 04/27/2008 8:08 PM FIELD TRAFFIC INVESTIGATOR us History Conversion BODY FLUIDS AND STOOLS Final Result INTERFACE SYSTEM Refer to clinic/hospital department [facility] CLIA# [id number] [address] [place] [address] documented in this encounter Visit Diagnoses Diagnosis Urinary tract infection, site not specified documented in this encounter Care Teams Professor Of French Relationship Specialty Start Date End Date Soren Mart MD PCP - General 02/10/09 documented as of this encounter
--- OUTSIDE RECORDS SUMMARY | 2024-07-28 11:47 | XMS_ITS | Encounter Summary ---
Author Organization [facility] Address [address] [place] [address] Care Team Providers Care Performance Improvement Analyst Name Role Phone Soren Mart MD Primary Care Provider [phone] Encounter Details Date Type Department Care Team (Latest Contact Info) Description 07/19/2004 Outpatient Historical HIS ADOL [facility], [place] [address] [place] [id number] DEPRESSIVE DISORDER NEC (Primary Dx) Social History Tobacco Use Types Packs/Day Years Used Date Smoking Tobacco: Never Assessed Comments Unknown Sex and Gender Information Value Date Recorded Sex Assigned at Not on file Legal Sex Female 3:43 AM CORN SHREDDER Gender Identity Not on file Sexual Orientation Not on file documented as of this encounter Plan of Treatment Upcoming Encounters Date Type Department Care Team (Late st Contact Info) Description 08/05/2024 9:30 AM CORN SHREDDER Appointment [facility] [place] [address] [place] [address] Jaydon Powell MD [address] [place] [address] documented as of this encounter Visit Diagnoses Diagnosis Depressive disorder, not elsewhere classified- Primary documented in this encounter Care Teams Performance Improvement Analyst Relationship Specialty Start Date End Date Soren Mart MD PCP - General 02/10/09 documented as of this encounter
--- OUTSIDE RECORDS SUMMARY | 2024-07-28 11:47 | XMS_ITS | Encounter Summary ---
Author Organization [facility] Address [address] [place] [address] Care Team Providers Care Electrical Accessories I Assembler Name Role Phone Soren Mart MD Primary Care Provider [phone] Encounter Details Date Type Department Care Team (Late st Contact Info) Description 01/15/2006 Outpatient Historical HIS IMG[facility] Inge Hutson MD NO ADDRESS ON FILE Pain in Joint, Ankle and Foot (Primary Dx) Social History Tobacco Use Types Packs/Day Years Used Date Smoking Tobacco: Never Assessed Comments Unknown Sex and Gender Information Value Date Recorded Sex Assigned at Not on file Legal Sex Female 3:43 AM MANAGER REPORT Gender Identity Not on file Sexual Orientation Not on file documented as of this encounter Plan of Treatment Upcoming Encounters Date Type Department Care Team (Late st Contact Info) Description 08/05/2024 9:30 AM MANAGER REPORT Appointment [facility] [address] [place] [address] Jaydon Powell MD [address] [facility] [address] [place] [address] documented as of this encounter Visit Diagnoses Diagnosis Pain in joint, ankle and foot- Primary documented in this encounter Care Teams Electrical Accessories I Assembler Relationship Specialty Start Date End Date Soren Mart MD PCP - General 02/10/09 documented as of this encounter
--- OUTSIDE RECORDS SUMMARY | 2024-07-28 11:47 | XMS_ITS | Encounter Summary ---
Author Organization [facility] Address [address] [place] [address] Care Team Providers Care Meat Smoker Name Role Phone Soren Mart MD Primary Care Provider [phone] Encounter Details Date Type Department Care Team (Late st Contact Info) Description 05/21/2008 Outpatient Historical HIS [facility] Dario Coronel MD [address] [place] [address] Social History Tobacco Use Types Packs/Day Years Used Date Smoking Tobacco: Never Assessed Comments Unknown Sex and Gender Information Value Date Recorded Sex Assigned at Not on file Legal Sex Female 3:43 AM MARINE DIESEL TECHNICIAN Gender Identity Not on file Sexual Orientation Not on file documented as of this encounter Plan of Treatment Upcoming Encounters Date Type Department Care Team (Late st Contact Info) Description 08/05/2024 9:30 AM MARINE DIESEL TECHNICIAN Appointment [facility] [place] [address] [place] [address] Jaydon Powell MD [address] [place] [address] documented as of this encounter Procedures Procedure Name Priority Date/Time Associated Diagnosis Comments URINE CULTURE Routine 05/21/2008 11:47 AM MARINE DIESEL TECHNICIAN documented in this encounter Results * URINE CULTURE (05/21/2008 11:47 AM MARINE DIESEL TECHNICIAN) PRELIMINARY REPORT Pending [facility] FINAL REPORT No growth 24 hours [facility] 05/21/2008 11:4 7 AM MARINE DIESEL TECHNICIAN 05/21/2008 6:10 PM MARINE DIESEL TECHNICIAN us Dario Coronel MD MICROBIOLOGY - GENERAL ORDER ADAM Final Result INTERFACE SYSTEM Refer to clinic/hospital department [facility] CLIA# [id number] [address] [place], [place] [address] documented in this encounter Visit Diagnoses Not on filedocumented in this encounter Care Teams Meat Smoker Relationship Specialty Start Date End Date Soren Mart MD PCP - General 02/10/09 documented as of this encounter
--- OUTSIDE RECORDS SUMMARY | 2024-07-28 11:47 | XMS_ITS | Clinical Summary ---
Author Organization [facility] Address [address] [place] [address] Phone Care Team Providers Care Brim Edge Trimmer Name Role Phone Denny Norman MD Primary Care Provider [phone] Allergies No known active allergies Medications prazosin (MINIPRESS) 1 MG CapsuleIndications :Nightmares Take 1 Capsule by mouth nightly. 30 Capsule 2 3 Active PARoxetine (PAXIL) 30 MG TabletIndications: Persistent depressive disorder TAKE 1 TABLET BY MOUTH DAILY 90 Tablet 1 4 Active amphetamine-dextro amphetamine (ADDERALL) 20 MG TabletIndications: Attention deficit hyperactivity disorder (ADHD), combined type Take 1 Tablet by mouth 2 times daily. 60 Tablet 4 Active Active Problems No known active problems Immunizations Immunization Administration Dates Next Due DTAP VACCINE 12/15/2005, 7,01/27/1993,02/02,1991,1991 Hepatitis B Vaccine 08/17/1997,03/09/1997,1996 Hepatitis B Vaccine, Pediatric/adolescent 08/17/1997,03/09/1997,02/07/1997 Hib (PRP-OMP) Vaccine 10/28/1992, 992,1991,09/20 Hib Vaccine,unspecified Formulation 10/14,02/03/1992,1991,09/20 Human Papillomavirus Vaccine (HPV), quadrivalent 02/21/2009,10/03/2008,08/04/2008 Inactivated Polio Vaccine 02/07/1997,,1991,09/20 Influenza Vaccine 04/12/2016,04/19/2015 Influenza Vaccine, Quadrivalent, PF 04/13/2019 Influenza, Seasonal, Injecta ble, Undefined 04/13/2016,04/14/2014,05/21/2010 MMR Vaccine 02/07/1997,10/28/1992 Meningococcal Vaccine 01/08/2010 OPV 02/07/1997, 3,1991,09/20 TB Skin Test 04/10/2016, 5,11/02/2013,09/24 TD VACCINE 01/15/2006 TDAP Vaccine 09/24/2013,01/08/2010 Varicella Vaccine Live 10/31/2013,07/31/1996 Family History Medical History Relation Name Comments Congestive Heart Failure Father Simón Diabetes Father Simón Heart Attack Father Simón Hypertension Father Simón Diabetes Maternal Grandfather Diabetes Maternal Grandmother Asthma Mother Amelia Diabetes Mother Amelia Diabetes Paternal Grandfather Diabetes Paternal Grandmother Relation Name Status Comments Father Simón Maternal Grandfather Maternal Grandmother Mother Amelia Paternal Grandfather Paternal Grandmother Social History Tobacco Use Types Packs/Day Years Used Date Smoking Tobacco: Never Smokeless Tobacco: Never Tobacco Cessation:Counseling Given: No Alcohol Use Standard Drinks/Week Comments Not Currently 0 (1 standard drink = 0.6 oz pur e alcohol) NGRAIN Utilities Answer Date Recorded In the past 12 months has [employer], [employer], oil, or water [employer] threatened to shut off services in your home? No 11/20/2023 Social Connection and Isolat ion Panel [NHANES] Answer Date Recorded In a typical week, how many times do you talk on the phone with family, friends, or neighbors? More than three times a week 11/20/2023 How often do you get togethe r with friends or relatives? Once a week 11/20/2023 How often do you attend [facility] or advent services? Patient declined 11/20/2023 Do you belong to any clubs o r organizations such as holiness groups, unions, fraternal or athletic groups, or school groups? No 11/20/2023 How often do you attend meet ings of the clubs or organizations you belong to? Never 11/20/2023 Are you , , di vorced, , never , or living with a partner? Living with partner 11/20/2023 AUDIT-C Answer Date Recorded Q1: How often do you have a drink containing alcohol? Never 11/20/2023 Q2: How many drinks containi ng alcohol do you have on a typical day when you are drinking? Patient does not drink Q3: How often do you have si x or more drinks on one occasion? Never 11/20/2023 Overall Financial Resource Strain (CARDIA) Answe r Date Recorded How hard is it for you to pa y for the very basics like food, housing, medical care, and heating? Patient declined 11/20/2023 [facility] - Occupational Stress Questionnaire Answer Date Recorded Do you feel stress - tense, restless, nervous, or anxious, or unable to sleep at night because your mind is troubled all the time - these days? Very much 11/20/2023 Exercise Vital Sign Answer Date Recorde d On average, how many days pe r week do you engage in moderate to strenuous exercise (like a brisk walk)? 4 days 11/20/2023 On average, how many minutes do you engage in exercise at this level? 130 min 11/20/2023 Hunger Vital Sign Answer Date Recorded Within the past 12 months, y ou worried that your food would run out before you got the money to buy more. Never true 11/20/19 24 Within the past 12 months, t he food you bought just didn't last and you didn't have money to get more. Never true 11/20/2023 PRAPARE - Transportation Answer Date Re corded In the past 12 months, has l ack of transportation kept you from medical appointments or from getting medications? Yes 11/20/2023 In the past 12 months, has l ack of transportation kept you from meetings, work, or from getting things needed for daily living? Patient declined 11/20/2023 Housing Stability Vital Sign Answer Rohan e Recorded In the last 12 months, was t here a time when you were not able to pay the mortgage or rent on time? No 11/20/2023 In the last 12 months, how many places have you lived? 1 11/20/2023 In the last 12 months, was t here a time when you did not have a steady place to sleep or slept in a alf (including now)? No 11/20/2023 Education Answer Date Recorded What is the highest level of school you have completed or the highest degree you have received? Associate degree: academic program 01/08/2023 Sexually Active Control Partners Comments Yes None Male Comments No Sex and Gender Information Value Date Recorded Sex Assigned at Female 07/09/2023 12:53 PM READING RECOVERY TEACHER Legal Sex Female 1:59 PM CDT Gender Identity Female 07/09/2023 12:53 PM READING RECOVERY TEACHER Sexual Orientation Straight 07/09/2023 12 :53 PM READING RECOVERY TEACHER Last Filed Vital Signs Vital Sign Reading Time Taken Comments Blood Pressure 128/72 11/20/2023 2:28 PM CDT Pulse 100 11/20/2023 2:28 PM CDT Temperature 36.6 C (97.9 F) 11/20/2023 2:28 PM CDT Respiratory Rate 16 11/20/2023 2:28 PM CDT Oxygen Saturation 98% 11/20/2023 2:28 PM CDT Inhaled Oxygen Concentration - - Weight 92.4 kg (203 lb 11.2 oz) 11/20/2023 2:28 PM CDT Height 162.6 cm (5' 4 ) 11/20/2023 2:28 PM CDT Body Mass Index 34.97 11/20/2023 2:28 PM CDT Plan of Treatment Health Maintenance Due Date Last Done Comments DTaP/Tdap/Td Immunization (10 - Td or Tdap) 09/25/2023 09/24/2013, 01/08/2010, 01/15/2006, Additional history exists Influenza Immunization (#1) 02/15/202403/17, 04/12/2016, 04/19/2015 SARS-COV-2 Immunization ( season) 2024 10/12/2020, 09/14/2020 Pap Smear 02/21/2026 02/21/2023 Cervical Cancer Screening (CCS) 02/22/2028 HPV/Cotest 02/22/2028 02/21/2023 Respiratory Syncytial Virus (RSV) Immunization (Adult) (1 - 1-dose 75+ series) 2066 Hepatitis B Immunization Completed 998, 08/17/1997, 03/09/1997, Additional history exists Meningococcal Immunization (ACWY) Completed 01/08/2010 Hepatitis C Virus (HCV) Screening Discontinued 02/24/2024 Pneumococcal Immunization Combined Aged Out No longer eligible based on patient's age to complete this topic Rotavirus Immunization Aged Out No lo nger eligible based on patient's age to complete this topic Procedures Procedure Name Priority Date/Time Associated Diagnosis Comments LAB - MISCELLANEOUS 06/09/2024 1 2:00 AM READING RECOVERY TEACHER COMPLETE BLOOD COUNT (CBC) WITH DIFF 06/03/2024 12:00 AM READING RECOVERY TEACHER LAB - MISCELLANEOUS 06/03/2024 1 2:00 AM READING RECOVERY TEACHER COMPLETE BLOOD COUNT (CBC) WITH DIFF 05/24/2024 12:00 AM READING RECOVERY TEACHER URINE PROTEIN/CREATININE RATIO (RANDOM) [facility] [id number] 05/24/2024 12:00 AM READING RECOVERY TEACHER URINALYSIS (UA) RANDOM 05/24/2024 12:00 AM READING RECOVERY TEACHER URIC ACID (BLOOD ASSAY) 05/24/2024 12:00 AM READING RECOVERY TEACHER CMP (COMPREHENSIVE METABOLIC PANEL) 05/24/2024 12:00 AM READING RECOVERY TEACHER HEPATITIS C ANTIBODY 02/24/2024 12:00 AM CDT HUMAN PAPILLOMA VIRUS (HPV) Routine 02/21/2023 2:35 PM CDT Well woman exam with routine gynecological exam PATHOLOGY CYTOLOGY ALUMNI RELATIONS MANAGER Routine 02/21/2023 2:35 PM CDT Well woman exam with routine gynecological exam from Last 3 Months or Most Recently Relevant to Health Maintenance Results * LAB - MISCELLANEOUS (06/09/2024 12:00 AM READING RECOVERY TEACHER) Only the most recent of2 resultswithin the time period is included. 06/09/2024 us Provider Scan CHEMISTRY ORDERABLES Final Resul t SCAN * COMPLETE BLOOD COUNT (CBC) WITH DIFF (06/03/2024 12:00 AM READING RECOVERY TEACHER) Only the most recent of2 resultswithin the time period is included. 06/03/2024 us Provider Scan HEMATOLOGY ORDERABLES Final Resu lt Performing Organization Address [facility] de Phone Number SCAN * URINE PROTEIN/CREATININE RATIO (RANDOM) [facility] [id number] (05/24/2024 12:00 AM READING RECOVERY TEACHER) 05/24/2024 us Provider Scan LAB SEND OUTS Final Result Performing Organization Address [facility] de Phone Number SCAN * URINALYSIS (UA) RANDOM (05/24/2024 12:00 AM READING RECOVERY TEACHER) 05/24/2024 us Provider Scan URINE ORDERABLES Final Result Performing Organization Address [facility] de Phone Number SCAN * URIC ACID (BLOOD ASSAY) (05/24/2024 12:00 AM READING RECOVERY TEACHER) 05/24/2024 us Provider Scan CHEMISTRY ORDERABLES Final Resul t Performing Organization Address [facility] de Phone Number SCAN * CMP (COMPREHENSIVE METABOLIC PANEL) (05/24/2024 12:00 AM READING RECOVERY TEACHER) 05/24/2024 us Provider Scan CHEMISTRY ORDERABLES Final Resul t Performing Organization Address City/[facility] de Phone Number SCAN * HEPATITIS C ANTIBODY (02/24/2024 12:00 AM CDT) 02/24/2024 us Provider Scan CHEMISTRY ORDERABLES Final Resul t Performing Organization Address [facility]/ZIP Co de Phone Number SCAN * PATHOLOGY CYTOLOGY ALUMNI RELATIONS MANAGER (02/21/2023 2:35 PM CDT) SPECIMEN ADEQUACY Satisfactory for evaluation. Endocervical/transf ormation zone component is present. 03/11/2023 3:22 PM CDT [facility] GENERAL CATEGORY EPITHELIAL CELL ABNORMALITY. 03/11/2023 3:22 PM CDT [facility] DESCRIPTIVE DIAGNOSIS ASCUS: Atypical squamous cells of undetermined significance. 03/11/2023 3:22 PM CDT [facility] R FINDINGS Fungal organisms present, morphologically consistent with Ricarda species. 03/11/2023 3:22 PM CDT [facility] Automated Examination Analysis of this sample has been assisted by an automated imaging and review system ([employer] System, [employer], [place], [place]). This case is further evaluated and finalized by a hand surgeon and/or pathologist. 03/11/2023 3:22 PM CDT [facility] Disclaimer The PAP smear is a screening test designed to detect cancerous or precancerous cells of the uterine cervix. It is one of the best means available for detection of cervical cancer but still carries an inherent false-negative rate. The consequences of a false-negative PAP result can be minimized by adhering to current screening guidelines. The following are general guidelines recommended by the ACS, ASCP, ASCCP, and ACOG: PAP testing is recommended every three years for women 21-29, Co-Testing , a PAP test in conjunction with an HPV (Human Papillomavirus) test for women ages 30-65, and no PAP or HPV testing for women under the age of 21 or older than 65 unless clinically indicated. 03/11/2023 3:22 PM CDT [facility] Other (Cervix/Endocerv ix) Non-Phlebotomy Collection / Unknown 02/21/2023 2:35 PM CDT 02/21/2023 2:35 PM CDT us Amelia Beard MANAGER CLEANING, FRUIT FARMWORKER PATHOLOGY/CYTOLOGY ORDER ADAM Final Result [facility] [address] [place] [address], [place] * (ABNORMAL) HUMAN PAPILLOMA VIRUS (HPV) (02/21/2023 2:35 PM CDT) HPV OTHER HIGH RISK TYPES, PCR POSITIVE(A) NEGATIVE 02/25/2023 7:37 AM CDT [facility] Comment: Positive for one or more of the following Other High HPV types: 31, 33, 35, 39, 45, 51, 52, 56, 58, 59, 66, and 68. False-positive results have been reported with molecular assays. If these positive results are discordant with clinical/cytohistologic findings, repeat testing may be considered after an appropriate interval. HPV TYPE 16 NEGATIVE NEGATIVE 02/25/2023 7:37 AM CDT [facility] Comment: A negative high-risk HPV result does not exclude the possibility of future cytologic HSIL or underlying CIN2-3 or cancer. The presence of PCR inhibitors may cause false negative or invalid results. If concentrations of whole blood in the sample exceed 1.5% (dark red or brown coloration) in PreservCyt solution, there is a likelihood of obtaining a false-negative result. HPV TYPE 18 NEGATIVE NEGATIVE 02/25/2023 7:37 AM CDT [facility] Comment: A negative high-risk HPV result does not exclude the possibility of future cytologic HSIL or underlying CIN2-3 or cancer. The presence of PCR inhibitors may cause false negative or invalid results. If concentrations of whole blood in the sample exceed 1.5% (dark red or brown coloration) in PreservCyt solution, there is a likelihood of obtaining a false-negative result. HPV ORDER BE USED FOR SCREENING OR DIAGNOSTIC SCREENING 02/25/2023 7:37 AM CDT [facility] Other Non-Phlebotomy Collection / Unknown 02/21/2023 2:35 PM CDT 02/21/2023 2:35 PM CDT Narrative [facility] - 02/25/2023 7:37 AM CDT Performed by Real-Time Polymerase Chain Reaction (PCR) on the Caryl Marcellus 4800. This assay has been validated for use with post-aliquot samples from the [employer] T5000 processor. us Amelia Beard APRN, FRUIT FARMWORKER LAB SEND OUTS Final Re sult [facility] [address] [place] [address], [place] from Last 3 Months or Most Recently Relevant to Health Maintenance Insurance MEDICAID [facility] PLAN Care Teams Brim Edge Trimmer Relationship Specialty Start Date End Date Denny Norman MD [address] [address] PCP - General Family Medicine 01/08/23
--- OUTSIDE RECORDS SUMMARY | 2024-07-28 11:47 | XMS_ITS | Encounter Summary ---
Author Organization [facility] Address [address] [place] [address] Care Team Providers Care Indoor Landscape Architect Name Role Phone Soren Mart MD Primary Care Provider Encounter Details Date Type Department Care Team (Late st Contact Info) Description 04/30/2006 Outpatient Historical [facility] Internal Medicine [address] [address] Inge Hutson MD NO ADDRESS ON FILE Social History Tobacco Use Types Packs/Day Years Used Date Smoking Tobacco: Never Assessed Comments Unknown Sex and Gender Information Value Date Recorded Sex Assigned at Not on file Legal Sex Female 3:43 AM SENIOR SOFTWARE QUALITY ANALYST Gender Identity Not on file Sexual Orientation Not on file documented as of this encounter Plan of Treatment Upcoming Encounters Date Type Department Care Team (Late st Contact Info) Description 08/05/2024 9:30 AM SENIOR SOFTWARE QUALITY ANALYST Appointment [facility] [place] [address] [place] [address] Jaydon Powell MD [address] [facility] [address] [facility] [address] [place] [address] documented as of this encounter Visit Diagnoses Not on filedocumented in this encounter Care Teams Indoor Landscape Architect Relationship Specialty Start Date End Date Soren Mart MD PCP - General 02/10/09 documented as of this encounter
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
--- OUTSIDE RECORDS SUMMARY | 2024-07-28 11:47 | XMS_ITS | Encounter Summary ---
Author Organization [facility] Address [address] [place] [address] Care Team Providers Care Railroad Operator Name Role Phone Soren Mart MD Primary Care Provider Encounter Details Date Type Department Care Team (Late st Contact Info) Description 03/14/2005 Outpatient Historical [facility] Support Serv. (Peds Cardiology-[facility]) [address] [facility] [place] [address] Warner Flores MD NO ADDRESS ON FILE Social History Tobacco Use Types Packs/Day Years Used Date Smoking Tobacco: Never Assessed Comments Unknown Sex and Gender Information Value Date Recorded Sex Assigned at Not on file Legal Sex Female 3:43 AM BALL MILL MIXER Gender Identity Not on file Sexual Orientation Not on file documented as of this encounter Plan of Treatment Upcoming Encounters Date Type Department Care Team (Late st Contact Info) Description 08/05/2024 9:30 AM BALL MILL MIXER Appointment [facility] [place] [address] [place] [address] Jaydon Powell MD [address] [place] [address] documented as of this encounter Visit Diagnoses Not on filedocumented in this encounter Care Teams Railroad Operator Relationship Specialty Start Date End Date Soren Mart MD PCP - General 02/10/09 documented as of this encounter
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
--- OUTSIDE RECORDS SUMMARY | 2024-07-28 11:47 | XMS_ITS | Encounter Summary ---
Author Organization [facility] Address [address] [place] [address] Care Team Providers Care Audio Visual Aide Name Role Phone Soren Mart MD Primary Care Provider [phone] Encounter Details Date Type Department Care Team (Latest Contact Info) Description 03/14/2005 Outpatient Historical [facility] DRS BLDG Conversion, History CHEST PAIN NEC (Primary Dx) Social History Tobacco Use Types Packs/Day Years Used Date Smoking Tobacco: Never Assessed Comments Unknown Sex and Gender Information Value Date Recorded Sex Assigned at Not on file Legal Sex Female 3:43 AM FORESTRY EXTENSION SPECIALIST Gender Identity Not on file Sexual Orientation Not on file documented as of this encounter Plan of Treatment Upcoming Encounters Date Type Department Care Team (Late st Contact Info) Description 08/05/2024 9:30 AM FORESTRY EXTENSION SPECIALIST Appointment [facility] [place] [address] [place] [address] Jaydon Powell MD [address] [place] [address] documented as of this encounter Procedures Procedure Name Priority Date/Time Associated Diagnosis Comments CBC WITH DIFFERENTIAL Routine 03/14/2005 12:29 PM CDT CBC WITH DIFFERENTIAL Routine 03/14/2005 12:29 PM CDT COMPREHENSIVE METABOLIC PANEL Routine 03/14/2005 12:29 PM CDT documented in this encounter Results * (ABNORMAL) CBC WITH DIFFERENTIAL (03/14/2005 12:29 PM CDT) NEUTROPHILS 67 36 - 74 % INTERFAC E SYSTEM LYMPHOCYTES 25 18 - 53 % INTERFAC E SYSTEM MONOCYTES 7 2 - 13 % INTERFACE SYSTEM EOSINOPHILS 1(L) 2 - 12 % INTERFAC E SYSTEM BASOPHILS 0 0 - 3 % INTERFACE SYSTEM NEUTROPHIL ABSOLUTE 6.03 K/uL INTERFACE SYSTEM LYMPHOCYTE ABSOLUTE 2.29 K/uL INTERFACE SYSTEM MONOCYTE ABSOLUTE 0.64 K/uL INTERFACE SYSTEM EOSINOPHIL ABSOLUTE 0.06 K/uL INTERFACE SYSTEM BASOPHILS ABSOLUTE 0.02 K/uL INTERFACE SYSTEM 03/14/2005 12:2 9 PM CDT us History Conversion HEMATOLOGY ORDERABLES Final R esult Performing Organization Address City/[facility] Co de Phone Number INTERFACE SYSTEM Refer to clinic/hospital department * CBC WITH DIFFERENTIAL (03/14/2005 12:29 PM CDT) WBC 9.0 4.0 - 9.8 K/uL INTERFACE SYSTEM RBC 4.50 3.90 - 4.90 M/uL INTERFACE SYSTEM HEMOGLOBIN 13.5 11.8 - 14.8 g/dL INTERFACE SYSTEM HEMATOCRIT 41.6 35.5 - 44.0 % INTERFACE SYSTEM MCV 92.4 82.0 - 99.0 fL INTERFACE SYSTEM MCH 30.0 27.2 - 32.6 pg INTERFACE SYSTEM MCHC 32.5 31.5 - 35.5 % INTERFACE SYSTEM RDW 12.9 11.5 - 14.5 % INTERFACE SYSTEM RDW-STDEV 43.4 37.1 - 48.7 fL INTERFACE SYSTEM PLATELETS 287 140 - 350 K/uL INTERFACE SYSTEM MPV 10.0 9.3 - 12.4 fL INTERFACE SYSTEM 03/14/2005 12:2 9 PM CDT us History Conversion HEMATOLOGY ORDERABLES Final R esult Performing Organization Address City/[facility]/ZIP Co de Phone Number INTERFACE SYSTEM Refer to clinic/hospital department * COMPREHENSIVE METABOLIC PANEL (03/14/2005 12:29 PM CDT) GLUCOSE 99 60 - 110 mg/dL INTERFACE SYSTEM CREATININE 0.7 0.4 - 1.2 mg/dL INTERFACE SYSTEM CALCIUM 9.7 8.4 - 10.2 mg/dL INTERFACE SYSTEM AST 14 12 - 32 U/L INTERFACE SYSTEM ALKALINE PHOSPHATASE 127 35 - 187 U/L INTERFACE SYSTEM BUN 16 6 - 20 mg/dL INTERFACE SYSTEM BILIRUBIN TOTAL 0.3 0.2 - 1.0 mg/dL INTERFACE SYSTEM ALBUMIN 4.7 3.8 - 5.4 g/dL INTERFACE SYSTEM TOTAL PROTEIN 7.4 6.3 - 8.6 g/dL INTERFACE SYSTEM ALT 9 0 - 31 U/L INTERFACE SYSTEM SODIUM 141 135 - 145 mmol/L INTERFACE SYSTEM POTASSIUM 4.0 3.5 - 4.9 mmol/L INTERFACE SYSTEM CHLORIDE 104 96 - 108 mmol/L INTERFACE SYSTEM CO2 29 22 - 30 mmol/L INTERFACE SYSTEM 03/14/2005 12:2 9 PM CDT us History Conversion CHEMISTRY ORDERABLES Final Re sult INTERFACE SYSTEM Refer to clinic/hospital department documented in this encounter Visit Diagnoses Diagnosis Other chest pain- Primary documented in this encounter Care Teams Audio Visual Aide Relationship Specialty Start Date End Date Soren Mart MD PCP - General 02/10/09 documented as of this encounter
--- OUTSIDE RECORDS SUMMARY | 2024-07-28 11:47 | XMS_ITS | Encounter Summary ---
Author Organization [facility] Address [address] [place] [address] Care Team Providers Care Clinical Instructor Name Role Phone Soren Mart MD Primary Care Provider [phone] Encounter Details Date Type Department Care Team (Latest Contact Info) Description 07/06/2005 Outpatient Historical [facility] DRS BLDG Conversion, History FX MID/PRX PHAL, HAND-CLOSE (Primary Dx) Social History Tobacco Use Types Packs/Day Years Used Date Smoking Tobacco: Never Assessed Comments Unknown Sex and Gender Information Value Date Recorded Sex Assigned at Not on file Legal Sex Female 3:43 AM CARDIOLOGY TECHNICIAN Gender Identity Not on file Sexual Orientation Not on file documented as of this encounter Plan of Treatment Upcoming Encounters Date Type Department Care Team (Late st Contact Info) Description 08/05/2024 9:30 AM CARDIOLOGY TECHNICIAN Appointment [facility] [place] [address] [place] [address] Jaydon Powell MD [address] [place] [address] documented as of this encounter Visit Diagnoses Diagnosis Closed fracture of middle or proximal phalanx or phalanges of hand- Primary documented in this encounter Care Teams Clinical Instructor Relationship Specialty Start Date End Date Soren Mart MD PCP - General 02/10/09 documented as of this encounter
--- OUTSIDE RECORDS SUMMARY | 2024-07-28 11:47 | XMS_ITS | Encounter Summary ---
Author Organization [facility] Address [address] [place] [address] Care Team Providers Care Call Center Support Representative Name Role Phone Soren Mart MD Primary Care Provider Encounter Details Date Type Department Care Team (Late st Contact Info) Description 07/08/2007 Orders Only [facility] Internal Medicine [address] [address] Inge Hutson MD NO ADDRESS ON FILE Social History Tobacco Use Types Packs/Day Years Used Date Smoking Tobacco: Never Assessed Comments Unknown Sex and Gender Information Value Date Recorded Sex Assigned at Not on file Legal Sex Female 3:43 AM METAL CUT OFF SAW OPERATOR Gender Identity Not on file Sexual Orientation Not on file documented as of this encounter Progress Notes * Inge Hutson MD - 10/28/2007 8:18 PM CDT TIME:01:31 pm PATIENT`S HOME PHONE: PATIENT`S WORK PHONE: PATIENT`S INSURANCE: [facility] [employer] [facility] WHO TOOK THE CALL: Amelia Lee R GENERAL INFORMATION WHO CALLED: Patient`s mother called. CURRENT ALLERGY LIST: NO KNOWN DRUG ALLERGY PHARMACY NUMBER: [phone] PROBLEMS: CONGESTION: Patient complains of congestion. COUGH:Patient complains of cough. difficulty sleeping due to cough, sleeping sitting up in recliner *Get antibiotics also? She is not sleeping well, unable to go to school today. Can she have a work excuse for today. Should I keep her out the rest of the week? SECTION 1: DOCTOR`S RESPONSE: romero 07/08/07 at 01:56 pm MEDICATIONS: Call in to Pharmacy we can start abx as well, she can try some delsym for the cough, if she is having fever or continued fatigue may be best to keep her home and can have school excuse for as many days as needed. ZITHROMAX Z-SANDRA ORAL TABLET 250 MG, TAKE DIRECTED, 1 Dispensed, status: NEW PRESCRIPTION, 07/08/2007. FINAL ACTION: olivia 07/08/07 at 02:00 pm Spoke with patient 07/08/07 at 02:01 pm. Called pharmacy at 07/08/07 at 02:01 pm. Electronically Signed by: Chnatelle Kathleen on Sunday, July 08, 2007 documented in this encounter Plan of Treatment Upcoming Encounters Date Type Department Care Team (Late st Contact Info) Description 08/05/2024 9:30 AM METAL CUT OFF SAW OPERATOR Appointment [facility] [address] [place] [address] Jaydon Powell MD [address] [facility] [address] [facility] [address] [place] [address] documented as of this encounter Visit Diagnoses Not on filedocumented in this encounter Care Teams Call Center Support Representative Relationship Specialty Start Date End Date Soren Mart MD PCP - General 02/10/09 documented as of this encounter
--- OUTSIDE RECORDS SUMMARY | 2024-07-28 11:47 | XMS_ITS | Encounter Summary ---
Author Organization [facility] Address [address] [place] [address] Care Team Providers Care Student Life Coordinator Name Role Phone Soren Mart MD Primary Care Provider Encounter Details Date Type Department Care Team (Late st Contact Info) Description 08/24/2007 Outpatient Historical [facility] Internal Medicine [address] [address] Soren Mart MD [address] [place] [address] Social History Tobacco Use Types Packs/Day Years Used Date Smoking Tobacco: Never Assessed Comments Unknown Sex and Gender Information Value Date Recorded Sex Assigned at Not on file Legal Sex Female 3:43 AM NUCLEAR EQUIPMENT RESEARCH ENGINEER Gender Identity Not on file Sexual Orientation Not on file documented as of this encounter Plan of Treatment Upcoming Encounters Date Type Department Care Team (Late st Contact Info) Description 08/05/2024 9:30 AM NUCLEAR EQUIPMENT RESEARCH ENGINEER Appointment [facility] M[facility] and [facility] [address] [place] [address] Jaydon Powell MD [address] [facility] [address] [place] [address] documented as of this encounter Visit Diagnoses Not on filedocumented in this encounter Care Teams Student Life Coordinator Relationship Specialty Start Date End Date Soren Mart MD PCP - General 02/10/09 documented as of this encounter
--- OUTSIDE RECORDS SUMMARY | 2024-07-28 11:47 | XMS_ITS | Encounter Summary ---
Author Organization [facility] Address [address] [place] [address] Care Team Providers Care Tenter Feeder Name Role Phone Porter Christianson MD Primary Care Provider Encounter Details Date Type Department Care Team (Latest Contact Info) Description 08/24/2007 Outpatient Historical [facility] Porter Christianson MD [address] [place] [address] Brain Injury NEC (CMS/HCC) Social History Tobacco Use Types Packs/Day Years Used Date Smoking Tobacco: Never Assessed Comments Unknown Sex and Gender Information Value Date Recorded Sex Assigned at Not on file Legal Sex Female 3:43 AM GARMENT LOOPER Gender Identity Not on file Sexual Orientation Not on file documented as of this encounter Plan of Treatment Upcoming Encounters Date Type Department Care Team (Late st Contact Info) Description 08/05/2024 9:30 AM GARMENT LOOPER Appointment [facility] [place] [address] [place] [address] Jaydon Powell MD [address] [place] [address] documented as of this encounter Procedures Procedure Name Priority Date/Time Associated Diagnosis Comments CT HEAD WO CONTRAST Routine 08/24/2007 9 :54 AM CDT documented in this encounter Results * CT HEAD WO CONTRAST (08/24/2007 9:54 AM CDT) Anatomical Region Laterality Modality Head Other 08/24/2007 9:54 AM CDT Narrative 08/24/2007 1:35 PM CDT [place] [address] [place], [place] [address] Admit Date: 08/24/2007 ANNI BRYANT Sex: F Admit Prov: PORTER CHRISTIANSON Date: 1990 Primary Care Prov: ALYX REGAN CMRN: [id number] Room: [facility]: [id number] IMAGING SERVICES Ordering Prov: N/A Accession Number: [id number] Interpretation CT HEAD WITHOUT CONTRAST, 08/23/2005 History: Headache. Technique: Computed tomography of the brain was performed at the standard reference planes, at 5 mm intervals, without intravenous contrast material. Findings: The ventricular system is of normal size and there is no midline shift. No focal areas of abnormal attenuation or mass effect are seen. There is no evidence of acute intracranial hemorrhage. The cortical sulci are normal.The calvarium is intact. Impression: Normal noncontrast CT scan of the brain. . Dictated by: CUONG SHAFFER 08/24/2007 10:07 Electronically signed by: CUONG SHAFFER 08/24/2007 13:35 Transcribed: 08/24/2007 13:11 [facility] Procedure Note Provider, Historical - 08/24/2007 [place] [place], [place] [address] Admit Date: 08/24/2007 ANNI BRYANT Sex: F Admit Prov: PORTER CHRISTIANSON Date: 1990 Primary Care Prov: ALYX REGAN CMRN: [id number] Room: [facility]: [id number] IMAGING SERVICES Ordering Prov: N/A Interpretation CT HEAD WITHOUT CONTRAST, 08/23/2005 History: Headache. Technique: Computed tomography of the brain was performed at thestandard reference planes, at 5 mm intervals, without intravenous contrastmaterial. Findings: The ventricular system is of normal size and there is nomidline shift. No focal areas of abnormal attenuation or mass effect areseen. There is no evidence of acute intracranial hemorrhage. The corticalsulci are normal.The calvarium is intact. Impression: Normal noncontrast CT scan of the brain. . Dictated by: CUONG SHAFFER 08/24/2007 10:07 Electronically signed by: CUONG SHAFFER 08/24/2007 13:35 Transcribed: 08/24/2007 13:11 [facility] Porter Christianson MD CT ORDERABLES Final Result documented in this encounter Visit Diagnoses Diagnosis Intracranial injury of other and unspecified nature, without mention of open intracranial wound, unspecified state of consciousness (CMS/[facility]) Intracranial injury of other and unspecified nature, without mention of open intracranial wound, unspecified state of consciousness documented in this encounter Care Teams Tenter Feeder Relationship Specialty Start Date End Date Porter Christianson MD PCP - General 02/10/09 documented as of this encounter
--- OUTSIDE RECORDS SUMMARY | 2024-07-28 11:47 | XMS_ITS | Encounter Summary ---
Author Organization [facility] Address [address] [place] [address] Care Team Providers Care Farmworker Machine Name Role Phone Soren Mart MD Primary Care Provider [phone] Encounter Details Date Type Department Care Team (Late st Contact Info) Description 07/06/2007 Orders Only [facility] Internal Medicine [address] [address] Inge Hutson MD NO ADDRESS ON FILE Social History Tobacco Use Types Packs/Day Years Used Date Smoking Tobacco: Never Assessed Comments Unknown Sex and Gender Information Value Date Recorded Sex Assigned at Not on file Legal Sex Female 3:43 AM DINKEY ENGINE OPERATOR Gender Identity Not on file Sexual Orientation Not on file documented as of this encounter Progress Notes * Inge Hutson MD - 10/28/2007 7:51 PM CDT TIME:11:07 am PATIENT`S HOME PHONE: PATIENT`S WORK PHONE: PATIENT`S INSURANCE: [facility] WHO TOOK THE CALL: Amelia Lee R GENERAL INFORMATION ALTERNATIVE PHONE NUMBER: [phone] or Jonas- Amelia WHO CALLED: Patient called. I know you are busy this am, Can you work [employer] in? I think she may have the real flu PROBLEMS: started very suddenly on Friday, got worse yesterday CONGESTION: Patient complains of chest congestion. COUGH:Patient complains of cough. productive, hard green-brown chunks DIZZINESS:Patient complains of dizziness. FEVER: Patient complains of fever. 103 last night, chills HEADACHE: Patient complains of headache. PAIN: Patient complains of pain. body aches SORE THROAT: Patient complains of sore throat. SECTION 1: REQUESTED ACTION larry 07/06/07 at 11:12 am: APPOINTMENT REQUEST: Patient wants an appointment today with PCP only, no appointments available. DOCTOR`S RESPONSE: romero 07/06/07 at 11:27 am if you can get her in now, I can see her before going west. FINAL ACTION: olivia 07/06/07 at 11:37 am Amelia states she is on her way Electronically Signed by: Chantelle Kathleen on Friday, July 06, 2007 * Inge Hutson MD - 10/28/2007 7:50 PM CDT WEIGHT: 150lbs TEMPERATURE: 98.6??f Oral NURSE NAME: Amelia LeeJeanine CHIEF COMPLAINT Patient complains of chest congestion, head congestion, cough, runny nose, sore throat. since Friday HISTORY: HISTORY: 487.1-INFLUENZA The influenza has worsened. fevers, body aches and cough for the past 2 days, she has been using motrin and tylenol which has helped lower temp. Also notes extreme fatigue, body aches, and may have been exposed to flu at school. CURRENT ALLERGY LIST: NO KNOWN DRUG ALLERGY SOCIAL HISTORY: TOBACCO USE: Has no significant smoking history. OCCUPATION: . student. PHYSICAL EXAMINATION: CONSTITUTIONAL: GENERAL APPEARANCE: MILDLY DISTRESSED. appears ill. EARS, NOSE, MOUTH AND THROAT: EARS: Tympanic membranes shiny without retraction. Canals unremarkable. NOSE (AND SINUS): CLEAR NASAL DISCHARGE NOTED BILATERALLY. ORAL: ERYTHEMA NOTED ON THE POSTERIOR PHARYNX, COBBLE STONING NOTED ON THE POSTERIOR PHARYNX. RESPIRATORY: Clear to auscultation and percussion. Normal respiratory effort. CARDIOVASCULAR: CARDIAC: Regular rhythm. No murmurs, rubs, or gallops. tachycardic. LYMPHATICS: No lymphadenopathy in the neck. GASTROINTESTINAL: ABDOMEN: Soft, non-tender, without masses. Bowel sounds active. LIVER/SPLEEN/KIDNEY: No hepatosplenomegaly, tenderness or nodularity. Kidneys not palpable. SKIN: SKIN: diaphoretic. PSYCHIATRIC: Mood and affect appropriate. ASSESSMENT/PLAN: 487.1-INFLUENZA needs school excuse for tomorrow, advised fluids and rest and monitor for worseningsx. ASSESSMENT: The influenza has worsened. The patient is coughing, has fever. discussed adding abx ifsx persist/worsen on tamiflu alone. MEDICATIONS: TAMIFLU ORAL CAPSULE CONVENTIONAL 75 MG, 1 Two Times A Day, 10 Dispensed, 5 Duration/Days Supply, status: NEW PRESCRIPTION, 07/06/2007. PREVENTIVE COUNSELING The patient was counseled regarding diet, regular sustained exercise for at least 30 minutes 3-4 times per week. RETURN VISIT : Patient instructed to call in 2 days if not improving.please waive co-pay. Electronically Signed by: Inge Hutson MD on Friday, July 06, 2007 documented in this encounter Plan of Treatment Upcoming Encounters Date Type Department Care Team (Late st Contact Info) Description 08/05/2024 9:30 AM DINKEY ENGINE OPERATOR Appointment [facility] Maternal and Health [facility] [address] [place] [address] Jaydon Powell MD [address] [facility] [address] [place] [address] documented as of this encounter Visit Diagnoses Not on filedocumented in this encounter Care Teams Farmworker Machine Relationship Specialty Start Date End Date Soren Mart MD PCP - General 02/10/09 documented as of this encounter
--- OUTSIDE RECORDS SUMMARY | 2024-07-28 11:47 | XMS_ITS | Encounter Summary ---
Author Organization [facility] Address [address] [place] [address] Care Team Providers Care Industrial Waste Inspector Name Role Phone Soren Mart MD Primary Care Provider Encounter Details Date Type Department Care Team (Late st Contact Info) Description 08/24/2007 Outpatient Historical [facility] Internal Medicine [address] [address] Soren Mart MD [address] [place] [address] Social History Tobacco Use Types Packs/Day Years Used Date Smoking Tobacco: Never Assessed Comments Unknown Sex and Gender Information Value Date Recorded Sex Assigned at Not on file Legal Sex Female 3:43 AM DIRECTOR OF SERVICES Gender Identity Not on file Sexual Orientation Not on file documented as of this encounter Plan of Treatment Upcoming Encounters Date Type Department Care Team (Late st Contact Info) Description 08/05/2024 9:30 AM DIRECTOR OF SERVICES Appointment [facility] Maternal and Health [facility] [address] [place] [phone] Jaydon Powell MD [address] [facility] [address] [place] [address] documented as of this encounter Visit Diagnoses Not on filedocumented in this encounter Care Teams Industrial Waste Inspector Relationship Specialty Start Date End Date Soren Mart MD PCP - General 02/10/09 documented as of this encounter
--- OUTSIDE RECORDS SUMMARY | 2024-07-28 11:47 | XMS_ITS | Encounter Summary ---
Author Organization [facility] Address [address] [place] [address] Care Team Providers Care Interactive Developer Name Role Phone Soren Mart MD Primary Care Provider [phone] Encounter Details Date Type Department Care Team (Late st Contact Info) Description 10/30/2005 Outpatient Historical [facility] Internal Medicine [address] [address] Inge Hutson MD NO ADDRESS ON FILE Social History Tobacco Use Types Packs/Day Years Used Date Smoking Tobacco: Never Assessed Comments Unknown Sex and Gender Information Value Date Recorded Sex Assigned at Not on file Legal Sex Female 3:43 AM DIRECTOR TALENT Gender Identity Not on file Sexual Orientation Not on file documented as of this encounter Last Filed Vital Signs Vital Sign Reading Time Taken Comments Blood Pressure 120/72 10/30/2005 3:00 PM CDT Pulse - - Temperature 36.6 C (97.9 F) 10/30/2005 3:00 PM CDT Respiratory Rate - - Oxygen Saturation - - Inhaled Oxygen Concentration - - Weight 58.1 kg (128 lb) 10/30/2005 3:00 PM CDT Height 157.5 cm (5' 2 ) 10/30/2005 3:00 PM CDT Body Mass Index 23.41 10/30/2005 3:00 PM CDT Body Mass Index Percentile 84.49% 10/30/2005 3:0 0 PM CDT Growth Chart: CDC (Girls, 2- 20 Years) documented in this encounter Plan of Treatment Upcoming Encounters Date Type Department Care Team (Late st Contact Info) Description 08/05/2024 9:30 AM DIRECTOR TALENT Appointment [facility] Maternal and Health [facility] [address] [place] [address] Jaydon Powell MD [address] [place] [address] documented as of this encounter Visit Diagnoses Not on filedocumented in this encounter Care Teams Interactive Developer Relationship Specialty Start Date End Date Soren Mart MD PCP - General 02/10/09 documented as of this encounter
--- OUTSIDE RECORDS SUMMARY | 2024-07-28 11:47 | XMS_ITS | Encounter Summary ---
Author Organization [facility] Address [address] [place] [address] Care Team Providers Care License Registration Examiner Name Role Phone Soren Mart MD Primary Care Provider [phone] Encounter Details Date Type Department Care Team (Late st Contact Info) Description 02/04/2008 Outpatient Historical [facility], Authorized P NO ADDRESS ON FILE Ingrid Giang NP [address] [facility] [address] [place] [address] Social History Tobacco Use Types Packs/Day Years Used Date Smoking Tobacco: Never Assessed Comments Unknown Sex and Gender Information Value Date Recorded Sex Assigned at Not on file Legal Sex Female 3:43 AM CLOTH FINISHING RANGE OPERATOR CHIEF Gender Identity Not on file Sexual Orientation Not on file documented as of this encounter Plan of Treatment Upcoming Encounters Date Type Department Care Team (Late st Contact Info) Description 08/05/2024 9:30 AM CLOTH FINISHING RANGE OPERATOR CHIEF Appointment [facility] [place] [address] [place] [address] Jaydon Powell MD [address] [place] [address] documented as of this encounter Procedures Procedure Name Priority Date/Time Associated Diagnosis Comments XR SINUSES 3+ VW Routine 02/04/2008 1:20 PM CDT URINALYSIS WITH REFLEX CULTURE Stat 02/04/2008 1:15 PM CDT URINALYSIS W/REFLEX MICROSCOPIC Stat 02/04/2008 1:15 PM CDT POC , URINE Routine 02/04/2008 1:11 PM CDT POC URINALYSIS DIPSTICK NON AUTOMATED Routine 02/04/2008 1:09 PM CDT CBC WITH DIFFERENTIAL Stat 02/04/2008 11:50 AM CDT MONONUCLEOSIS SCREEN Stat 02/04/2008 11:50 AM CDT C-REACTIVE PROTEIN Stat 02/04/2008 11 :50 AM CDT COMPREHENSIVE METABOLIC PANEL Stat 02/04/2008 11:50 AM CDT documented in this encounter Results * XR SINUSES 3+ VW (02/04/2008 1:20 PM CDT) Anatomical Region Laterality Modality Head Other 02/04/2008 1:20 PM CDT Narrative 02/04/2008 1:46 PM CDT [facility] [address] [place], [place] [address] Admit Date: 02/04/2008 ANNI BRYANT Sex: F Admit Prov: ER, AUTHORIZED P Date: 1990 Primary Care Prov: CMRN: [id number] [facility] [id number] IMAGING SERVICES Ordering Prov: N/A Accession Number: [id number] Interpretation Sinuses complete 4 views 02/04/2008 History: Headache. Findings: The paranasal sinuses are clear. The orbits are intact. The soft tissues are unremarkable. Impression: Unremarkable study. . Dictated by: VANDANA MCCRARY 02/04/2008 13:43 Electronically signed by: VANDANA MCCRARY 02/04/2008 13:44 Procedure Note Vandana Mccrary - 02/04/2008 [facility] [address] [place], [place] [address] Admit Date: 02/04/2008 ANNI BRYANT Sex: F Admit Prov: ER, AUTHORIZED P Date: 1990 Primary Care Prov: CMRN: [id number] Room: ER-A SSN: [id number] IMAGING SERVICES Ordering Prov: N/A Interpretation Sinuses complete 4 views 02/04/2008 History: Headache. Findings: The paranasal sinuses are clear. The orbits are intact. Thesoft tissues are unremarkable. Impression: Unremarkable study. . Dictated by: VANDANA MCCRARY 02/04/2008 13:43 Electronically signed by: VANDANA MCCRARY 02/04/2008 13:44 Ingrid Giang NP DIAGNOSTIC IMAGING ORDERABLES Final Result * URINALYSIS (02/04/2008 1:15 PM CDT) KETONES UA Negative Negative [facility] CLARITY UA Clear Clear [facility] BILIRUBIN UA Negative Negative [facility] PROTEIN UA Negative Negative [facility] LEUKOCYTE ESTERASE UA Negative Negative [facility] SPECIFIC GRAVITY UA 1.005 1.001 - 1.035 [facility] GLUCOSE UA Negative Negative [facility] BLOOD UA Negative Negative [facility] COLOR UA Pale Yellow [facility] NITRITE UA Negative Negative [facility] UROBILINOGEN UA <1 <=1 mg/dL [facility] PH UA 7.0 5.0 - 8.0 [facility] 02/04/2008 1:15 PM CDT 02/04/2008 1:17 PM CDT Ingrid Giang NURSE CHEMICAL DEPENDENCY URINE ORDERABLES Final Result Performing Organization Address [facility] Phone Number INTERFACE SYSTEM Refer to clinic/hospital department [facility] CLIA# [id number] [address] [place] [address] * URINALYSIS WITH REFLEX CULTURE (02/04/2008 1:15 PM CDT) URINE CULTURE ORDER Not indicated [facility] Comment: Criteria for a reflex culture include one or more of the following: Abnormal nitrite, leukocyte esterase, WBCs or RBCs. Lack of qualifying criteria does not exclude the possiblity of a urinary tract infection. Dilute urine, drug interference, etc. may decrease the sensitivity of the criteria analytes. Urine specimen (specimen) 02/04/2008 1:15 PM CDT 02/04/2008 1:17 PM CDT Ingrid Giang NURSE CHEMICAL DEPENDENCY URINE ORDERABLES Final Result Performing Organization Address [facility] Phone Number INTERFACE SYSTEM Refer to clinic/hospital department [facility] CLIA# [id number] [address] [place] [address] * POC , URINE (02/04/2008 1:11 PM CDT) , URINE POC Negative Negative [facility] SPECIFIC GRAVITY UA 1.010 1.001 - 1.035 [facility] Urine specimen (specimen) 02/04/2008 1:11 PM CDT 02/04/2008 1:11 PM CDT us Authorized P Er POINT OF CARE TESTING Final Resu lt Performing Organization Address [facility] Phone Number INTERFACE SYSTEM Refer to clinic/hospital department [facility] CLIA# [id number] [address] [place] [address] * POC URINALYSIS DIPSTICK (02/04/2008 1:09 PM CDT) Pathologist [facility] CLARITY UA Clear [facility] PROTEIN UA Negative Negative [facility] BLOOD UA Negative Negative [facility] LEUKOCYTE ESTERASE UA Negative Negative [facility] UROBILINOGEN UA Normal <=1 mg/dL [facility] SPECIFIC GRAVITY UA 1.010 1.001 - 1.030 [facility] GLUCOSE UA Negative Negative [facility] COLOR UA Pale [facility] BILIRUBIN UA Negative Negative [facility] NITRITE UA Negative Negative [facility] PH UA 7.0 5.0 - 8.0 [facility] KETONES UA Negative Negative [facility] COMMENT, URINE Test not chrgd/to repeat [facility] Urine specimen (specimen) 02/04/2008 1:09 PM CDT 02/04/2008 1:09 PM CDT us Authorized P Er POINT OF CARE TESTING Edited INTERFACE SYSTEM Refer to clinic/hospital department [facility] CLIA# [id number] [address] [place] [address] * (ABNORMAL) CBC WITH DIFFERENTIAL (02/04/2008 11:50 AM CDT) WBC 10.4(H) 4.0 - 9.8 K/uL [facility] MCH 30.4 27.2 - 32.6 pg [facility] MPV 10.3 9.3 - 12.4 fL [facility] HEMATOCRIT 37.5 35.5 - 44.0 % [facility] RDW-STDEV 42.9 37.1 - 48.7 fL [facility] RBC 4.08 3.90 - 4.90 M/uL [facility] MCHC 33.1 31.5 - 35.5 % [facility] MCV 91.9 82.0 - 99.0 fL [facility] PLATELETS 224 140 - 350 K/uL [facility] HEMOGLOBIN 12.4 11.8 - 14.8 g/dL [facility] RDW 12.7 11.5 - 14.5 % [facility] PLATELET EST. Consistent w/ count Normal [facility] LYMPHOCYTES 11(L) 16 - 45 % [facility] BASOPHILS ABSOLUTE 0.00 0.00 - 0.20 K/uL [facility] BASOPHILS 0 0 - 2 % [facility] MONOCYTE ABSOLUTE 0.31 0.10 - 1.30 K/uL [facility] MONOCYTES 3 3 - 13 % [facility] RBC MORPHOLOGY Normal Normal [facility] NEUTROPHIL ABSOLUTE 8.84(H) 1.90 - 7.00 K/uL [facility] NEUTROPHILS, SEG 85(H) 45 - 70 % [facility] ATYPICAL LYMPHOCYTE 1 0 - 5 % [facility] EOSINOPHIL ABSOLUTE 0.00 0.00 - 0.70 K/uL [facility] REVIEWED ON SMEAR Plt OK by Smear Rev. [facility] EOSINOPHILS 0 0 - 7 % [facility] LYMPHOCYTE ABSOLUTE 1.25 0.70 - 4.50 K/uL [facility] Blood specimen (specimen) 02/04/2008 11:50 AM CDT 02/04/2008 11:55 AM CDT us Ingrid Giang NP HEMATOLOGY ORDERABLES Edited Performing Organization Address [facility] Phone Number INTERFACE SYSTEM Refer to clinic/hospital department [facility] CLIA# [id number] [address] [place] [address] * MONONUCLEOSIS SCREEN (02/04/2008 11:50 AM CDT) Pathologist [facility] MONONUCLEOSIS SCREEN Negative Negative [facility] Blood specimen (specimen) 02/04/2008 11:50 AM CDT 02/04/2008 11:55 AM CDT Ingrid Giang NP HEMATOLOGY ORDERABLES Final R esult Performing Organization Address [facility] Phone Number INTERFACE SYSTEM Refer to clinic/hospital department [facility] CLIA# [id number] [address] [place] [address] * C-REACTIVE PROTEIN (02/04/2008 11:50 AM CDT) [facility] CRP 0.2 0.0 - 0.8 mg/dL [facility] Blood specimen (specimen) 02/04/2008 11:50 AM CDT 02/04/2008 11:55 AM CDT Ingrid Giang NP CHEMISTRY ORDERABLES Final Re sult Performing Organization Address [facility] Phone Number INTERFACE SYSTEM Refer to clinic/hospital department [facility] CLIA# [id number] [address] [place] [address] * COMPREHENSIVE METABOLIC PANEL (02/04/2008 11:50 AM CDT) ALKALINE PHOSPHATASE 65 35 - 187 U/L [facility] BILIRUBIN TOTAL 0.4 0.2 - 1.0 mg/dL [facility] CO2 23 22 - 30 mmol/L [facility] TOTAL PROTEIN 7.1 6.3 - 8.6 g/dL [facility] POTASSIUM 3.9 3.5 - 4.9 mmol/L [facility] GLUCOSE 101 60 - 110 mg/dL [facility] AST 16 12 - 32 U/L [facility] BUN 10 6 - 20 mg/dL [facility] CALCIUM 9.0 8.4 - 10.2 mg/dL [facility] Comment:Note new reference r percy effective 01/14/08 CHLORIDE 103 96 - 108 mmol/L [facility] ALBUMIN 4.4 3.2 - 4.5 g/dL [facility] CREATININE 0.64 0.51 - 0.95 mg/dL [facility] SODIUM 135 135 - 145 mmol/L [facility] ALT 14 0 - 31 U/L [facility] GFR, N/A:MDRD equation validated for pts. >18 yrs. >=60 mL/min/1 .7 sq meter [facility] GFR N/A:MDRD equation validated for pts. >18 yrs. >=60 mL/min/1 .7 sq meter [facility] Comment: Modification of Diet in Renal Disease (MDRD) study formula. Estimated GFR rate interpretative information for both Americans and non- Americans is available on the [facility] [place] [place] Intranet at: [email or web address] Select: Lab Policies and Procedures Select: Reference Ranges - GFR Blood specimen (specimen) 02/04/2008 11:50 AM CDT 02/04/2008 11:55 AM CDT us Ingrid Giang NP CHEMISTRY ORDERABLES Edited INTERFACE SYSTEM Refer to clinic/hospital department [facility] CLIA# [id number] [address] [place] [address] documented in this encounter Visit Diagnoses Not on filedocumented in this encounter Care Teams License Registration Examiner Relationship Specialty Start Date End Date Soren Mart MD PCP - General 02/10/09 documented as of this encounter
--- OUTSIDE RECORDS SUMMARY | 2024-07-28 11:47 | XMS_ITS | Encounter Summary ---
Author Organization [facility] Address [address] [place] [address] Care Team Providers Care Senior International Tax Manager Name Role Phone Soren Mart MD Primary Care Provider [phone] Encounter Details Date Type Department Care Team (Late st Contact Info) Description 09/22/2008 Outpatient Historical [facility] Elmo Reich MD [address] [facility] [address] [place] [address] Social History Tobacco Use Types Packs/Day Years Used Date Smoking Tobacco: Never Assessed Comments Unknown Sex and Gender Information Value Date Recorded Sex Assigned at Not on file Legal Sex Female 3:43 AM CURRICULUM DIRECTOR Gender Identity Not on file Sexual Orientation Not on file documented as of this encounter Plan of Treatment Upcoming Encounters Date Type Department Care Team (Late st Contact Info) Description 08/05/2024 9:30 AM CURRICULUM DIRECTOR Appointment [facility] [place] [address] [place] [address] Jaydon Powell MD [address] [facility] [address] [facility] [address] [place] [address] documented as of this encounter Procedures Procedure Name Priority Date/Time Associated Diagnosis Comments XR FLUORO LESS THAN 1 HOUR Routine 09/23/2008 11:50 AM CDT POC , URINE Routine 09/23/2008 10:00 AM CDT HEMOGLOBIN AND HEMATOCRIT Stat 09/23/2008 9:50 AM CDT documented in this encounter Results * XR FLUORO < 1 HOUR (09/23/2008 11:50 AM CDT) Anatomical Region Laterality Modality Other 09/23/2008 11:5 0 AM CDT Narrative 10/01/2008 11:40 AM CDT [address] [address] Admit Date: 09/23/2008 ANNI BRYANT Bhavesh Sex: F Admit Prov: ELMO REICH Date: 1990 Primary Care Prov: CMRN: [id number] Room: SURG-A N: [id number] IMAGING SERVICES Ordering Prov: ELMO REICH Accession Number: [id number] Interpretation Fluoroscopic guidance was used by the surgeon to assist with performance of this intra-operative procedure. Please refer to surgeon s operative report for specific details. Dictated by: RADIOLOGY, DEPARTMENT O Electronically signed by: RADIOLOGY, DEPARTMENT 10/01/2008 11:39 Transcribed: 10/01/2008 07:42 AMK Procedure Note Radiology, Radiologist - 10/01/[address] [address] Admit Date: 09/23/2008 ANNI BRYANT Bhavesh Sex: F Admit Prov: ELMO REICH Date: 1990 Primary Care Prov: CMRN: [id number] Room: SURG-A SSN: [id number] IMAGING SERVICES Ordering Prov: ELMO REICH Interpretation Fluoroscopic guidance was used by the surgeon to assist withperformance of this intra-operative procedure. Please refer to surgeon s operativereport for specific details. Dictated by: RADIOLOGY, DEPARTMENT O Electronically signed by: RADIOLOGY, DEPARTMENT 10/01/2008 11:39 Transcribed: 10/01/2008 07:42 AMK Result [facility] Elmo Reich MD DIAGNOSTIC IMAGING ORDERABLES Final Result * POC , URINE (09/23/2008 10:00 AM CDT) , URINE POC Negative Negative [facility] Urine specimen (specimen) 09/23/2008 10:00 AM CDT 09/23/2008 10:00 AM CDT Result [facility] Elmo Reich MD POINT OF CARE TESTING Final Re sult Performing Organization Address [facility] de Phone Number INTERFACE SYSTEM Refer to clinic/hospital department [facility] CLIA# [id number] [address] [place] [address] * HEMOGLOBIN AND HEMATOCRIT (09/23/2008 9:50 AM CDT) HEMOGLOBIN 12.3 11.8 - 14.8 g/dL [facility] HEMATOCRIT 37.5 35.5 - 44.0 % [facility] Blood specimen (specimen) 09/23/2008 9:50 AM CDT 09/23/2008 10:05 AM CDT Narrative INTERFACE SYSTEM - 09/23/2008 10:15 AM CDT room 6 Result [facility] Elmo Reich MD HEMATOLOGY ORDERABLES Final Re sult Performing Organization Address [facility] de Phone Number INTERFACE SYSTEM Refer to clinic/hospital department [facility] CLIA# [id number] [address] [place] [address] documented in this encounter Visit Diagnoses Not on filedocumented in this encounter Care Teams Senior International Tax Manager Relationship Specialty Start Date End Date Soren Mart MD PCP - General 8/28/09 documented as of this encounter
--- OUTSIDE RECORDS SUMMARY | 2024-07-28 11:47 | XMS_ITS | Encounter Summary ---
Author Organization [facility] Address [address] [place] [address] Care Team Providers Care Customer Sales Representative Name Role Phone Soren Mart MD Primary Care Provider [phone] Encounter Details Date Type Department Care Team (Late st Contact Info) Description 04/30/2006 Outpatient Historical [facility] Internal Medicine [address] [address] Inge Hutson MD NO ADDRESS ON FILE Social History Tobacco Use Types Packs/Day Years Used Date Smoking Tobacco: Never Assessed Comments Unknown Sex and Gender Information Value Date Recorded Sex Assigned at Not on file Legal Sex Female 3:43 AM CASING IN LINE FEEDER Gender Identity Not on file Sexual Orientation Not on file documented as of this encounter Plan of Treatment Upcoming Encounters Date Type Department Care Team (Late st Contact Info) Description 08/05/2024 9:30 AM CASING IN LINE FEEDER Appointment [facility] [place] [address] [place] [address] Jaydon Powell MD [address] [facility] [address] [facility] [address] [place] [address] documented as of this encounter Visit Diagnoses Not on filedocumented in this encounter Care Teams Customer Sales Representative Relationship Specialty Start Date End Date Soren Mart MD PCP - General 02/10/09 documented as of this encounter
--- OUTSIDE RECORDS SUMMARY | 2024-07-28 11:47 | XMS_ITS | Encounter Summary ---
Author Organization [facility] Address [address] [place] [address] Care Team Providers Care Sorter Lumber Straightener Name Role Phone Soren Mart MD Primary Care Provider [phone] Encounter Details Date Type Department Care Team (Late st Contact Info) Description 05/20/2007 Orders Only [facility] Internal Medicine [address] [address] Inge Hutson MD NO ADDRESS ON FILE Social History Tobacco Use Types Packs/Day Years Used Date Smoking Tobacco: Never Assessed Comments Unknown Sex and Gender Information Value Date Recorded Sex Assigned at Not on file Legal Sex Female 3:43 AM SWATCH PASTER Gender Identity Not on file Sexual Orientation Not on file documented as of this encounter Progress Notes * Inge Hutson MD - 10/29/2007 9:49 AM CDT TIME:11:45 am PATIENT`S HOME PHONE: PATIENT`S WORK PHONE: PATIENT`S INSURANCE: [facility] WHO TOOK THE CALL: Amelia Lee R GENERAL INFORMATION ALTERNATIVE PHONE NUMBER: here WHO CALLED: Patient`s mother called. 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 Can you prescribe a few for the stomach cramps. She has to go back to school to be able to be in Nubity's performance. NAUSEA: Patient complains of nausea. The symptoms began approximately 7 hours ago. PAIN: Patient complains of abdominal pain. The onset was approximately 7 hours ago. VOMITING: Patient complains of vomiting. once Brother had vomiting, diarrhea and fever on Friday. SECTION 1: REQUESTED ACTION larry 05/20/07 at 11:58 am: MEDICATION REQUEST: Patient wants medications and can not come in. DOCTOR`S RESPONSE: romero 05/20/07 at 11:59 am MEDICATIONS: Call in to Pharmacy ORAL TABLET, one every 6 hours as needed., 5 Dispensed, status: NEW PRESCRIPTION, 05/20/2007. FINAL ACTION: olivia 05/20/07 at 12:17 pm Called pharmacy at 05/20/07 at 12:17 pm. Electronically Signed by: Chantelle Kathleen on Sunday, May 20, 2007 documented in this encounter Plan of Treatment Upcoming Encounters Date Type Department Care Team (Late st Contact Info) Description 08/05/2024 9:30 AM SWATCH PASTER Appointment [facility] M[facility] and [facility] [address] [place] [address] Jaydon Powell MD [address] [place] [address] documented as of this encounter Visit Diagnoses Not on filedocumented in this encounter Care Teams Sorter Lumber Straightener Relationship Specialty Start Date End Date Soren Mart MD PCP - General 02/10/09 documented as of this encounter
--- OUTSIDE RECORDS SUMMARY | 2024-07-28 11:47 | XMS_ITS | Encounter Summary ---
Author Organization [facility] Address [address] [place] [address] Care Team Providers Care Corrosion Engineer Name Role Phone Soren Mart MD Primary Care Provider Encounter Details Date Type Department Care Team (Late st Contact Info) Description 04/24/2007 Orders Only [facility] Internal Medicine [address] [address] Inge Hutson MD NO ADDRESS ON FILE Social History Tobacco Use Types Packs/Day Years Used Date Smoking Tobacco: Never Assessed Comments Unknown Sex and Gender Information Value Date Recorded Sex Assigned at Not on file Legal Sex Female 3:43 AM STRUCTURAL TEST ENGINEER Gender Identity Not on file Sexual Orientation Not on file documented as of this encounter Progress Notes * Inge Hutson MD - 10/29/2007 5:13 PM CDT TIME:02:07 pm PATIENT`S HOME PHONE: PATIENT`S WORK PHONE: PATIENT`S INSURANCE: [facility] [employer] [facility] WHO TOOK THE CALL: Amelia Lee R GENERAL INFORMATION ALTERNATIVE PHONE NUMBER: [phone] WHO CALLED: Patient`s mother called.Carly Cisneros CURRENT ALLERGY LIST: NO KNOWN DRUG ALLERGY PHARMACY NUMBER: give script to mom PROBLEMS: PINK EYE: Patient complains of pink eye. The symptoms began approximately 1 day ago. Last night left eye very red. This morning woke up eye pink, crusty, irritated. I am not sure if she is getting aninfection or if eye irritated from contacts SECTION 1: REQUESTED ACTION farrjr 04/24/07 at 02:16 pm: MEDICATION REQUEST: Patient wants medications and can not come in. DOCTOR`S RESPONSE: romero 04/24/07 at 03:28 pm MEDICATIONS: Call in to Pharmacy ERYTHROMYCIN OPHTHALMIC OINTMENT 5 MG/GM GRAMS, APPLY QID to affected eye, 5 Dispensed, status: NEWPRESCRIPTION, 04/24/2007. FINAL ACTION: rolo 04/24/07 at 03:30 pm Spoke with patient 04/24/07 at 03:30 pm. Amelia Scripted printed & given to Amelia. joann Electronically Signed by: Maribeth Sanchez on Tuesday, April 24, 2007 documented in this encounter Plan of Treatment Upcoming Encounters Date Type Department Care Team (Late st Contact Info) Description 08/05/2024 9:30 AM STRUCTURAL TEST ENGINEER Appointment [facility] Maternal and [facility] [address] [place] [address] Jaydon Powell MD [address] [facility] [address] [place] [address] documented as of this encounter Visit Diagnoses Not on filedocumented in this encounter Care Teams Corrosion Engineer Relationship Specialty Start Date End Date Soren Mart MD PCP - General 02/10/09 documented as of this encounter
--- OUTSIDE RECORDS SUMMARY | 2024-07-28 11:47 | XMS_ITS | Encounter Summary ---
Author Organization [facility] Address [address] [place] [address] Care Team Providers Care Tele Grout Sewer Line Repairer Name Role Phone Soren Mart MD Primary Care Provider [phone] Encounter Details Date Type Department Care Team (Late st Contact Info) Description 02/04/2006 Orders Only [facility] Internal Medicine [address] [address] Inge Hutson MD NO ADDRESS ON FILE Social History Tobacco Use Types Packs/Day Years Used Date Smoking Tobacco: Never Assessed Comments Unknown Sex and Gender Information Value Date Recorded Sex Assigned at Not on file Legal Sex Female 3:43 AM RESOURCE ROOM SPECIAL EDUCATION TEACHER Gender Identity Not on file Sexual Orientation Not on file documented as of this encounter Progress Notes * Inge Hutson MD - 03/24/2008 11:14 PM CDT TIME:01:35 pm PATIENT`S HOME PHONE: PATIENT`S WORK PHONE: PATIENT`S INSURANCE: [facility] [employer] [facility] WHO TOOK THE CALL: mAelia Lee R GENERAL INFORMATION ALTERNATIVE PHONE NUMBER: [phone]-Amelia WHO CALLED: Patient`s mother called. CURRENT ALLERGY LIST: NO KNOWN DRUG ALLERGY PHARMACY NUMBER: [phone] PROBLEMS: EARACHE: Patient complains of earache. The symptoms began approximately 4 days ago. tiny bit of redness/pain near canal on Friday. Last night pain much worse, swelling in canal(no redness), lump under ear. Today developed sore throat, tonsils hurting SECTION 1: REQUESTED ACTION larry 02/04/06 at 01:38 pm: MEDICATION REQUEST: Patient wants medication or an appointment. DOCTOR`S RESPONSE: romero 02/04/06 at 01:47 pm MEDICATIONS: Call in to Pharmacy OMNICEF ORAL CAPSULE CONVENTIONAL 300 MG, 1 Two Times A Day, 20 Dispensed, 10 Duration/Days Supply,status: NEW PRESCRIPTION, 02/04/2006. can get a coupon from the closet and we have two days of samples in closet to get started. FINAL ACTION: larry 02/04/06 at 04:36 pm Spoke with patient 02/04/06 at 04:36 pm. documented in this encounter Plan of Treatment Upcoming Encounters Date Type Department Care Team (Late st Contact Info) Description 08/05/2024 9:30 AM RESOURCE ROOM SPECIAL EDUCATION TEACHER Appointment [facility] Maternal and [facility] [address] [place] [address] Jaydon Powell MD [address] [facility] [address] [place] [id number] documented as of this encounter Visit Diagnoses Not on filedocumented in this encounter Care Teams Tele Grout Sewer Line Repairer Relationship Specialty Start Date End Date Soren Mart MD PCP - General 02/10/09 documented as of this encounter
[2024-07-28 12:15] LABS: HIV 1/2 Ab P24 Ag Result Negative (Negative)
== END 2024-07-28 10:56 | disposition home or self-care (01) ==
LOC: ANHLAB 10:56
PROVIDERS: Visit Provider Nurse Practitioner Obstetrics & Gynecology
DX: Z34.90 Encounter for supervision of normal pregnancy, unspecified, unspecified trimester (principal)
CPT/HCPCS: 36415; 85027; 86592; 86703; G0432

== ENCOUNTER 2024-08-11 12:27 | Observation (INO) | payer OTHER, SELFPAY ==
--- NOTE | ~2024-08-11 | US_ITS ---
EXAMINATION: US abdomen limited DATE: 08/11/2024 17:36 INDICATION: RUQ pain TECHNIQUE: Multiple grayscale and Doppler ultrasound images of limited portions of the abdomen were o btained. COMPARISON: None available. FINDINGS: The visualized portions of the pancreas are normal. The liver is enlarged, with normal echo genicity and echotexture. No surface nodularity. Normal hepatopetal flow in the main portal vein. The gallbladder is normal with no abnormal wall thickening, pericholecystic fluid or stones. The common bile duct measures 2 mm. There was no sonographic An sign. IMPRESSION: Hepatomegaly, otherwise normal limited abdominal ultrasound findings. Reviewed, dictated and finalized at location K. AGE WINDER AND INSPECTOR
[2024-08-11 13:03] VITALS: BP 125/83; PULSE 102
[2024-08-11 13:14] LABS: Add Urine Microscopic? NO; Appearance Urine Clear (Clear); Bilirubin Urine Negative (Negative); Blood Urine Negative (Negative); Color Urine Yellow (Yellow); Glucose Urine UA Negative (Negative); Ketones Urine Negative (Negative); Leukocyte Esterase Ur Negative LEU/UL (Negative); Nitrate Urine Negative (Negative); Protein Urine Negative (Negative); Specific Grav Ur 1.013 (1.001-1.035); Urobilinogen Urine 0.2 mg/dL (<2.0); pH Urine 7.5 (5.0-9.0)
[2024-08-11 13:16] VITALS: BP 116/73; PULSE 98
[2024-08-11 13:31] VITALS: BP 114/71; PULSE 97
[2024-08-11 13:46] VITALS: BP 128/87; PULSE 126
[2024-08-11 14:00] VITALS: BMI 44.1
--- OUTSIDE RECORDS SUMMARY | 2024-08-11 14:01 | XMS_ITS | Encounter Summary ---
Author Organization [facility] Address 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 HISTORY: HISTORY: 682.0-OTHER CELLULITIS AND ABSCESS attempted to whatley her lower right lip 2 days ago and now lip significantly swollen, tender and draining green discharge from piercing site. She used a lip ring that was cleaned by lighting with a cigarette plate mill hand, this ring was also used beforehand by [...] as to visualizeTM. LAB ORDERS: Order number: [id number] Test Ordered: REMOVE CERUMEN IMPACT [id number] 682.0-OTHER CELLULITIS AND ABSCESS ASSESSMENT: advised warm [...] on filedocumented in this encounter Care Teams Glove Brusher Relationship Specialty Start Date End Date Soren Mart MD PCP - General 02/10/09 documented as of this encounter
--- OUTSIDE RECORDS SUMMARY | 2024-08-11 14:01 | XMS_ITS | Clinical Summary ---
Author Organization [facility] Address [address] [place] [address] Care Team Providers Care Blasting Worker Name Role Phone Soren Mart MD Primary Care Provider [phone] Allergies No known active allergies Medications ondansetron (ZOFRAN ODT) 4 mg Tablet, Rapid DissolveIndication s:Nausea Place 1 tab on top of tongue and let dissolve every 8 hours prn nausea.. 32 Tablet 3 7 Active mometasone-formote rol (DULERA) 100-5 mcg/actuation inhaler LOT:[id number] EX:11/2017 QTY:1 BOX. 1 Gram 7 Active [...] Encounters Date Type Department Care Team Description 08/05/2024 9:07 AM PLANNING ASSOCIATE - 08/05/2024 11:59 PM PLANNING ASSOCIATE Hospital Encounter [facility] [address] [place] [address] Jaydon Chase MD Discharge Disposition: Home or Self Care 08/03/2024 External Device Data STL ABSTRACTION Provider, Abstract 2024 External Device Data STL ABSTRACTION Provider, Abstract 07/13/2024 External Device Data STL ABSTRACTION Provider, Abstract 07/13/2024 External Device Data STL ABSTRACTION Provider, Abstract 07/07/2024 External Device Data STL ABSTRACTION Provider, Abstract 07/07/2024 External Device Data STL ABSTRACTION Provider, Abstract 06/30/2024 External Device Data STL ABSTRACTION Provider, Abstract 05/18/2024 External Device Data STL ABSTRACTION Provider, Abstract 05/12/2024 2:00 PM PLANNING ASSOCIATE - 05/12/2024 11:59 PM PLANNING ASSOCIATE Hospital Encounter [facility] Health [facility] [address] [place] [address] Jaydon Chase MD Discharge Disposition: [...] on file Legal Sex Female 3:43 AM PLANNING ASSOCIATE Gender Identity Not on file Sexual Orientation [...] 113.4 kg (250 lb) 07/12/2020 4:03 PM PLANNING ASSOCIATE Height 162.6 cm (5' 4 ) 07/12/2020 4:03 PM PLANNING ASSOCIATE Body Mass Index 42.91 07/12/2020 4:03 PM PLANNING ASSOCIATE Plan of Treatment Health Maintenance Due Date [...] Name Priority Date/Time Associated Diagnosis Comments US OB FOLLOW UP PER FETUS Routine 08/05/2024 9:53 AM PLANNING ASSOCIATE Encounter for ultrasound to assess growth Obesity during , antepartum US DETAIL + TV Routine 05/12/2024 3:22 PM PLANNING ASSOCIATE screening for malformation using ultrasonics CERV/VAG CYTO SCREEN PAP RLFX HPV Routine 11/02/2015 12:00 AM CDT from Last 3 Months or Most Recently Relevant to Health Maintenance Results * US OB FOLLOW UP PER FETUS (08/05/2024 9:53 AM PLANNING ASSOCIATE) Anatomical Region Laterality Modality Pelvis Ultrasound 08/05/2024 9:32 AM PLANNING ASSOCIATE Narrative 08/05/2024 9:57 AM PLANNING ASSOCIATE STL FOLLOW UP ----- Pat. Name: ANNI BRYANT Study Date: 08/05/2024 9:32am Pat. NO: [id number] Referring MD: JAYDON CHASE MD Site: [place] Glove Maker: Bri Toledo RDMS : 1990 Age: 34 ----- INDICATION ----- Maternal Care for Low Transverse Scar from Previous Delivery (Previous ) Maternal Obesity (BMI<40) Complicating Screening, Other Specified CODING ----- Diagnoses Z3A.33: Weeks of gestation Z36.89: Encounter to establish gestational age using ultrasound O99.213: Obesity complicating O34.211: Maternal care for low transverse scar from previous delivery Z36.3: Encounter for screening for malformations Z3A.33: Weeks of gestation O99.213: Obesity complicating Procedures 21734: Ultrasound, uterus, real time with image documentation, follow up, transabdominal approach per fetus HISTORY ----- OB History 2. Para 1 T1L1 MATERNAL ASSESSMENT ----- Physical Exam Initial weight 95 kg, 210 lb. Initial BMI 37.20 kg/m METHOD ----- Transabdominal ultrasound examination ----- Holt . Number of fetuses: 1 DATING ----- GA by prior assessment 33 w + 3 d ANA by prior assessment: 09/20/2024 Ultrasound examination on: 08/05/2024 GA by U/S based upon: AC, BPD, EFW, Femur, HC GA by U/S 34 w + 2 d ANA by U/S: 09/14/2024 Method of dating: Restore dating from previous exam Assigned: based on stated ANA, selected on 05/12/2024 Assigned GA 33 w + 3 d Assigned ANA: 09/20/2024 BIOMETRY ----- BPD 81.7 mm 32w 6d 28% Hadlock OFD 111.3 mm 37w 2d 98% Tejas HC 308.5 mm 34w 3d 38% Hadlock AC 317.7 mm 35w 5d 96% Hadlock Femur 65.6 mm 33w 6d 49% Hadlock HC / AC 0.97 11% Nicolaides Weight Calculation: EFW 2,508 g 34w 4d 80% Hadlock EFW (lb,oz) 5 lb 8 oz EFW by Hadlock ([id number]) Head / Face / Neck Biometry: Prototype Engineer 5.3 mm Extremities / Bony Struc Biometry: FL / BPD 0.80 FL / HC 0.21 FL / AC 0.21 GENERAL EVALUATION ----- Cardiac activity present. FHR 150 bpm. movements: present. Presentation: cephalic Placenta: Placental site: anterior Umbilical cord: Cord vessels: 3 vessel cord. Insertion site: placental insertion: normal Amniotic fluid: Amount of AF: normal amount. MVP 5.1 cm. MAX 10.6 cm. Q1 3.4 cm, Q2 0.0 cm, Q3 2.1 cm, Q4 5.1 cm ANATOMY ----- The following structures appear normal: Head / Neck Cranium. Lateral ventricles. Cavum septi pellucidi. Heart / Thorax 4-chamber view. RVOT view. Diaphragm. Abdomen Stomach. Kidneys. Bladder. GROWTH OVERVIEW ----- Exam date GA BPD (mm) HC (mm) AC (mm) FL (mm) HL (mm) EFW (g) 05/12/2024 21w 2d 47.9 19% 178.9 8% 162.2 43% 35.7 41% 32.1 27% 404 38% 08/05/2024 33w 3d 81.7 28% 308.5 38% 317.7 96% 65.6 49% 2,508 80% COMMENT ----- Patient's name and date of were verified by the new business clerk prior to the exam IMPRESSION ----- 1. Single living fetus with a gestational age of 33w 3d, based on the reported clinical dates. 2. Current growth parameters are consistent with the stated EDC. The size is appropriate for gestational age at 80% percentile (2508 g). 3. Unremarkable limited anatomy noted. A detailed anatomy cannot be performed secondary to advanced gestational age. However, there are no gross structural abnormalities noted. 4. The amniotic fluid is normal for gestational age (MVP:5.1 cm , MAX:10.6 cm ). 5. Anterior placenta. No previa/not low-lying. 6. Cephalic presentation. Recommendations: - Further imaging as indicated. Thank you for allowing us to participate in the care of this patient. Procedure Note Pennie Kee MD - 08/05/2024 STL FOLLOW UP ----- Pat. Name:Eladia BRYANT Date:08/05/2024 9:32am Pat. NO: [id number] :JAYDON CHASE MD [facility]Bri Toledo RDMS :1990Age:34 ----- INDICATION ----- Maternal Care for Low Transverse Scar from Previous Delivery (Previous ) Maternal Obesity (BMI<40) Complicating Screening, Other Specified CODING ----- Diagnoses Z3A.33: Weeks of gestation Z36.89: Encounter to establish gestational ageusing ultrasound O99.213: Obesity complicating O34.211: Maternal care for low transverse scarfrom previous delivery Z36.3: Encounter for screening formalformations Z3A.33: Weeks of gestation O99.213: Obesity complicating Procedures 70867: Ultrasound, uterus, real time withimage documentation, follow up, transabdominal approach per fetus HISTORY ----- OB History 2. Para 1 T1L1 MATERNAL ASSESSMENT ----- Physical Exam Initial weight 95 kg, 210 lb. Initial BMI 37.20kg/m METHOD ----- Transabdominal ultrasound examination ----- Holt . Number of fetuses: 1 DATING ----- GA by prior [id number] w + 3 d ANA by prior assessment:09/20/2024 Ultrasound examination on:08/05/2024 GA by U/S based upon:AC, BPD, EFW, Femur, HC GA by U/S34 w + 2 d ANA by U/S:09/14/2024 Method of dating:Restore dating from previous exam Assigned:based on stated ANA, selected on 05/12/2024 Assigned GA33 w + 3 d Assigned ANA:09/20/2024 BIOMETRY ----- BPD 81.7 mm 32w 6d 28%Hadlock OFD 111.3 mm 37w 2d 98%Tejas HC 308.5 mm 34w 3d 38%Hadlock AC 317.7 mm 35w 5d 96%Hadlock Femur 65.6 mm 33w 6d 49%Hadlock HC / AC 0.97 11%Nicolaides Weight Calculation: EFW 2,508 g 34w 4d80% Hadlock EFW (lb,oz) 5 lb 8 oz EFW by Hadlock ([id number]) Head / Face / Neck Biometry: Prototype Engineer 5.3mm Extremities / Bony Struc Biometry: FL / BPD 0.80 FL / HC 0.21 FL / AC 0.21 GENERAL EVALUATION ----- Cardiac activity present. FHR 150 bpm. movements: present.Presentation: cephalic Placenta: Placental site: anterior Umbilical cord: Cord vessels: 3 vessel cord. Insertion site: placentalinsertion: normal Amniotic fluid: Amount of AF: normal amount. MVP 5.1 cm. MAX 10.6 cm. Q13.4 cm, Q2 0.0 cm, Q3 2.1 cm, Q4 5.1 cm ANATOMY ----- The following structures appear normal: Head / Neck Cranium. Lateral ventricles. Cavum septipellucidi. Heart / Thorax 4-chamber view. RVOT view. Diaphragm. Abdomen Stomach. Kidneys. Bladder. GROWTH OVERVIEW ----- Exam date GA BPD (mm) HC (mm) AC (mm) FL(mm) HL (mm) EFW (g) 05/12/2024 21w 2d 47.9 19% 178.9 8% 162.2 43%35.7 41% 32.1 27% 404 38% 08/05/2024 33w 3d 81.7 28% 308.5 38% 317.7 96%65.6 49% 2,508 80% COMMENT ----- Patient's name and date of were verified by the new business clerk prior tothe exam IMPRESSION ----- 1. Single living fetus with a gestational age of 33w 3d, based on thereported clinical dates. 2. Current growth parameters are consistent with the stated EDC. The fetalsize is appropriate for gestational age at 80% percentile (2508 g). 3. Unremarkable limited anatomy noted. A detailed anatomycannot be performed secondary to advanced gestational age. However, there are no gross structural abnormalities noted. 4. The amniotic fluid is normal for gestational age (MVP:5.1 cm , MAX:10.6cm ). 5. Anterior placenta. No previa/not low-lying. 6. Cephalic presentation. Recommendations: - Further imaging as indicated. Thank you for allowing us to participate in the care of this patient. us Jaydon Chase MD US ORDERABLES Final Result * US DETAIL + TV (05/12/2024 3:22 PM PLANNING ASSOCIATE) Anatomical Region Laterality Modality Pelvis Ultrasound 05/12/2024 2:31 PM PLANNING ASSOCIATE Narrative 05/12/2024 3:31 PM PLANNING ASSOCIATE STL COMP ----- Pat. Name: ANNI BRYANT Study Date: 05/12/2024 2:31pm Pat. NO: [id number] Referring MD: JAYDON CHASE MD Site: [place] Glove Maker: Carol Ann Adams RDMS : 1990 Age: [...] Z36.3: Encounter for screening for malformations Procedures 73025: Ultrasound, uterus, real time with image documentation, and maternal evaluation plus detailed anatomic examination, transabdominal approach 64764: Ultrasound, uterus, real time with image documentation [...] 0 lb 14 oz EFW by Hadlock ([id number]) Head / Face / Neck Biometry: Prototype Engineer 4.7 mm CM 3.7 mm 8% Nicolaides [...] view. RVOT view. LVOT view. 3-vessel view. 2-ycjqey-yvbpbzh view. Situs. Aortic arch view. Ductal arch [...] and date of were verified by the new business clerk before the exam. Pia Stephenson was present for the transvaginal ultrasound and served as a paint crew supervisor. IMPRESSION ----- Viable at 21 weeks gestation. [...] Pat. Name:Eladia BRYANT Date:05/12/2024 2:31pm Pat. NO: [id number] MD:JAYDON CHASE MD [facility]:Carol Ann Adams RDMS :1990Age:33 ----- INDICATION ----- Anatomy Survey Maternal Care for Low Transverse Scar from x 1 Previous Delivery (Previous ) Maternal Obesity (BMI<40) Complicating Screening, Other Specified G1 pre-e CODING ----- Diagnoses Z3A.21: Weeks of gestation Z36.89: Encounter to establish gestational ageusing ultrasound O99.212: Obesity complicating O34.211: Maternal care for low transverse scarfrom previous delivery Z36.3: Encounter for screening formalformations Procedures 45662: Ultrasound, uterus, real time withimage documentation, and maternal evaluation plus detailed anatomic examination,transabdominal approach 76329: Ultrasound, uterus, real time withimage documentation HISTORY [...] dating:based on stated ANA GA by prior [id number] w + 2 d ANA by prior [...] 0 lb 14 oz EFW by Hadlock ([id number]) Head / Face / Neck Biometry: Prototype Engineer 4.7 mm CM 3.7 mm 8%Nicolaides Outer [...] 4-chamber view. RVOT view. LVOT view. 3-vesselview. 3-qxszbk-bnsxrzx view. Situs. Aortic arch view. Ductal arch [...] and date of were verified by the new business clerk beforethe exam. Pia Stephenson was present for [...] weeks gestation to assessfetal growth and development Jaydon Chase MD US ORDERABLES Final Result * CERV/VAG CYTOPATH, THIN PREP IMAGR RFLX HPV (CP) (11/02/2015 12:00 AM CDT) CLINICAL INFORMATION [facility] Comment: Routine exam WELL WOMAN EXAM LAST MENSTRUAL PERIOD [facility] Comment:10/05/15 PREV PAP: [facility] [employer] [facility] Comment:Information not prov ided PREV BX: [facility] [employer] [facility] Comment:Information not prov ided SOURCE [facility] Comment:[employer] ADEQUACY: [facility] [employer] [facility] Comment: Satisfactory for evaluation. Endocervical/transformation zone component present. INTERPRETATION [facility] Comment:Negative for intraep ithelial lesion or malignancy. CYTOLOGY INFECTION Q [employer]-1 [facility] Comment: Shift in vaginal maureen suggestive of bacterial vaginosis. COMMENT [facility] Comment: This Pap test has been evaluated with computer assisted technology. COMMERCIAL COLLECTOR: Million-[employer]1 [facility] Comment: ZOILA ELAM(ASCP) CT screening location: [place] [address] [place] [address] Test Performed at: [address] [address] DEBBIE CHOPRA MD 11/02/2015 Delphine LOGAN PATHOLOGY/CYTOLOGY ORDERABLES F inal Result [facility] [address] [place] [address] from Last 3 Months or Most Recently Relevant to Health Maintenance [place] [address] [address] [place] [address] MEDICAID Advance Directives For more information, please contact: [phone] * Full Code (Latest Code Status on File) Date Activated Date Inactivated Comments 12/21/2013 9:08 PM 12/22/2013 6:32 PM Care Teams Blasting Worker Relationship Specialty Start Date End Date Soren Mart MD PCP - General 02/10/09
--- OUTSIDE RECORDS SUMMARY | 2024-08-11 14:01 | XMS_ITS | Encounter Summary ---
Author Organization [facility] Address 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
--- OUTSIDE RECORDS SUMMARY | 2024-08-11 14:01 | XMS_ITS | Clinical Summary ---
Author Organization [facility] Address [address] [place] [place] [address] Care Team Providers Care Assistant Controller Name Role Phone Joy Gardner GWEN-POLYSTYRENE BEAD MOLDER Primary Care Provider + Source Comments [facility],non-owned Affiliates and Associated Physician Practices is amultiple site organization consisting of ambulatory clinics and hospital sitesin [place], [place], [place] and [place]. This disclosure is being madepursuant to the Care Everywhere program and may not contain all information available regarding this patient. Last updated 18.[facility] [employer] Allergies No known active allergies Medications * [...] LURIA, FLUZONE TRIVALENT; 6MO+) (IIV3) 04/13/2016,04/14/2014,05/21/2010 Covid Apto primary monoval ent 12+ yr 0.3mL Purple [...] age to complete this topic Care Teams Assistant Controller Relationship Specialty Start Date End Date Joy Gardner APRN-CNP [address] [address] PCP - General 02/13/21
--- OUTSIDE RECORDS SUMMARY | 2024-08-11 14:01 | XMS_ITS | Encounter Summary ---
Author Organization [facility] Address 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 CURRENT ALLERGY LIST: NO KNOWN DRUG ALLERGY PHARMACY NUMBER: [phone] PROBLEMS: feeling bad , achy FEVER: Patient [...] on filedocumented in this encounter Care Teams Bulk Tank Car Unloader Relationship Specialty Start Date End Date Soren Mart MD PCP - General 02/10/09 documented as of this encounter
--- OUTSIDE RECORDS SUMMARY | 2024-08-11 14:01 | XMS_ITS | Encounter Summary ---
Author Organization [employer] Address 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 Gender Identity Not on file Sexual Orientation Not on file documented as of this encounter Plan of Treatment Not on file documented as of this encounter Procedures Procedure [...] HEMATOLOGY ORDERABLES Ed ited Performing Organization Address City/State/[facility] Co de Phone Number INTERFACE SYSTEM Refer [...] HEMATOLOGY ORDERABLES Ed ited Performing Organization Address [facility] Phone Number INTERFACE SYSTEM Refer to clinic/hospital department * HEMOGLOBIN A1C (12/27/2006 12:31 PM CDT) HEMOGLOBIN A1C 5.4 4.1 - 6.1 % of Hgb INTERFACE SYSTEM GLUCOSE, MEAN BLOOD 115 mg/dL INTERFACE SYSTEM 12/27/2006 12:3 1 PM CDT us Inge Hutson MD CHEMISTRY ORDERABLES Darrel juan Performing Organization Address [facility] Phone Number INTERFACE SYSTEM Refer to clinic/hospital department * TSH (12/27/2006 12:31 PM CDT) TSH 1.50 0.27 - 4.20 uU/mL INTERFACE SYSTEM 12/27/2006 12:3 1 PM CDT us Inge Hutson MD CHEMISTRY ORDERABLES Darrel juan Performing Organization Address [facility] Phone Number INTERFACE SYSTEM Refer to [...] have symptoms. 12/27/2006 12:3 1 PM CDT Result Nicola Hutson MD CHEMISTRY ORDERABLES Darrel juan Performing Organization Address [facility] Phone Number INTERFACE SYSTEM Refer to clinic/hospital department * FERRITIN (12/27/2006 12:31 PM CDT) FERRITIN 39 13 - 150 ng/mL INTERFACE SYSTEM 12/27/2006 12:3 1 PM CDT us Inge Hutson MD CHEMISTRY ORDERABLES Darrel juan Performing Organization Address City/[facility] Co de Phone Number INTERFACE SYSTEM Refer [...] and non- Americans is available on the [facility] Intranet at: [email or web address] Select: Lab Policies and Procedures Select: Reference Ranges - GFR 12/27/2006 12:3 1 PM CDT Inge Hutson MD CHEMISTRY ORDERABLES Darrel juan Performing Organization Address City/[facility] Co de Phone Number INTERFACE SYSTEM Refer to clinic/hospital department documented in this encounter Visit Diagnoses Diagnosis Disturbance of skin sensation- Primary documented in this encounter Care Teams Waste Baler Relationship Specialty Start Date End Date Soren Mart MD PCP - General 02/10/09 documented as of this encounter
--- OUTSIDE RECORDS SUMMARY | 2024-08-11 14:01 | XMS_ITS | Encounter Summary ---
Author Organization [facility] Address 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
--- OUTSIDE RECORDS SUMMARY | 2024-08-11 14:01 | XMS_ITS | Encounter Summary ---
Author Organization [facility] Address 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 CURRENT ALLERGY LIST: NO KNOWN DRUG ALLERGY PROBLEMS: all x 2 weeks CONGESTION: Patient complains of sinus congestion, complains of head congestion, complains of chestcongestion, complains of nasal congestion. COUGH:Patient complains of cough. symptoms had improved some, but now rigo in head worse. SECTION 1: REQUESTED ACTION [facility]3] 01/16/07 at 04:13 pm: MEDICATION REQUEST: Patient wants medications and can not come in. DOCTOR`S RESPONSE: [facility]3] 01/16/07 at 04:[address] Mccormick MEDICATIONS: Call in to Pharmacy DIFLUCAN ORAL TABLET 150 MG, 1 Every Day, 1 Dispensed, status: NEW PRESCRIPTION, 01/16/2007. MEDROL (SANDRA) ORAL TABLET 4 MG, 1 PACKET ORAL DIRECTED, 1 Dispensed, status: NEW PRESCRIPTION, 01/16/2007. ZITHROMAX Z-SANDRA ORAL TABLET 250 MG, TAKE DIRECTED, 1 Dispensed, status: CONTINUED, 01/16/2007. also steam inhalations FINAL ACTION: [facility]3] 01/16/07 at 04:15 pm Spoke with patient 01/16/07 at 04:15 pm. mom printed script Electronically Signed by: Maribeth Sanchez on Friday, April 06, 2007 documented in this encounter Plan of Treatment Not on file documented as of this encounter Visit Diagnoses Not on filedocumented in this encounter Care Teams Spool Maker Relationship Specialty Start Date End Date Soren Mart MD PCP - General 02/10/09 documented as of this encounter
--- OUTSIDE RECORDS SUMMARY | 2024-08-11 14:01 | XMS_ITS | Continuity of Care Document ---
Author Organization [facility] Address [address] [facility] [address] [place] [address] Phone Care Team Providers Care Keysmith Name Role Phone Maia Horner Unavailable Unavailable Advance Directives Directive Yes / No Effective Date File Name No Information Encounters Encounter Description Practice Location Reason(s) For Visit Diagnoses Date Provider Providers Copied on Encounter [facility], [address] [place] [address] [address], [place], [place], [id number], [place] tel:[phone] [facility] No Information May-0 9-200 0 Siri Carvalho. [address] [facility] , [address], [place], [address], [place]. tel:[phone] Family History Family Member Type Diagnosis Age At Onset No Information Payers Payer name Insurance type Covered republican ID Authoriza tion(s) No Information Social History [...]
--- OUTSIDE RECORDS SUMMARY | 2024-08-11 14:01 | XMS_ITS | Encounter Summary ---
Author Organization [facility] Address 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 CURRENT ALLERGY LIST: NO KNOWN DRUG ALLERGY PHARMACY NUMBER: [phone] PROBLEMS: feeling terrible, chest tight-wheezing sound, did [...] on filedocumented in this encounter Care Teams Pbx Mechanic Relationship Specialty Start Date End Date Soren Mart MD PCP - General 02/10/09 documented as of this encounter
--- OUTSIDE RECORDS SUMMARY | 2024-08-11 14:01 | XMS_ITS | Encounter Summary ---
Author Organization [employer] Address [address] [place] [address] Care Team Providers Care Microphone Operator Name Role Phone Soren Mart MD Primary Care Provider [phone] Encounter Details Date Type Department Care Team (Latest Contact Info) Description 06/05/2006 Outpatient Historical [facility] David Guillermo MD NO ADDRESS ON FILE Chronic Tonsillitis (Primary Dx) Social History Tobacco Use Types Packs/Day Years Used Date Smoking Tobacco: Never Assessed Comments Unknown Sex and Gender Information Value Date Recorded Sex Assigned at Not on file Legal Sex Female 3:43 AM BUSINESS ANALYTICS DIRECTOR Gender Identity Not on file Sexual Orientation Not on file documented as of this encounter Plan of Treatment Not on file documented as of this encounter Procedures Procedure Name Priority Date/Time Associated Diagnosis Comments POC , URINE Routine 06/05/2006 9:20 AM BUSINESS ANALYTICS DIRECTOR HEMOGLOBIN AND HEMATOCRIT Routine 06/05/2006 9:11 AM BUSINESS ANALYTICS DIRECTOR documented in this encounter Results * POC , URINE (06/05/2006 9:20 AM BUSINESS ANALYTICS DIRECTOR) , URINE POC Negative Negative INTERFACE SYSTEM 06/05/2006 9:20 AM BUSINESS ANALYTICS DIRECTOR us David Guillermo MD POINT OF CARE TESTING Final Result INTERFACE SYSTEM Refer to clinic/hospital department * HEMOGLOBIN AND HEMATOCRIT (06/05/2006 9:11 AM BUSINESS ANALYTICS DIRECTOR) HEMOGLOBIN 13.3 11.8 - 14.8 g/dL INTERFACE SYSTEM HEMATOCRIT 39.0 35.5 - 44.0 % INTERFACE SYSTEM 06/05/2006 9:11 AM BUSINESS ANALYTICS DIRECTOR us David Guillermo MD HEMATOLOGY ORDERABLES Final Result INTERFACE SYSTEM Refer to clinic/hospital department documented in this encounter Visit Diagnoses Diagnosis Chronic tonsillitis- Primary documented in this encounter Care Teams Microphone Operator Relationship Specialty Start Date End Date Soren Mart MD PCP - General 02/10/09 documented as of this encounter
--- OUTSIDE RECORDS SUMMARY | 2024-08-11 14:01 | XMS_ITS | Referral Summary ---
Author Organization [facility] Address [address] [facility] [place] [address] Care Team Providers Care Mechanical Equipment Sales Engineer Name Role Phone Joy Gardner GWEN-INSTALLATION ENGINEER Primary Care Provider + Source Comments [facility],non-[facility] [place] Affiliates and Associated Physician Practices is amultiple site organization consisting of ambulatory clinics and hospital sitesin [place], [place], [place] and [place]. This disclosure is being madepursuant to the Care Everywhere program and may not contain all information available regarding this patient. Last updated 18.[facility] [employer] Allergies No known active allergies Medications * [...] LURIA, FLUZONE TRIVALENT; 6MO+) (IIV3) 04/13/2016,04/14/2014,05/21/2010 Covid [employer] primary monoval ent 12+ yr 0.3mL Purple [...] Not on file Administered Medications Care Teams Mechanical Equipment Sales Engineer Relationship Specialty Start Date End Date Joy Gardner APRN-CNP [address] [address] PCP - General 02/13/21
--- OUTSIDE RECORDS SUMMARY | 2024-08-11 14:01 | XMS_ITS | Encounter Summary ---
Author Organization [facility] Address 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
--- OUTSIDE RECORDS SUMMARY | 2024-08-11 14:01 | XMS_ITS | Encounter Summary ---
Author Organization [facility] Address [address] [place] [address] Care Team Providers Care Bilingual Student Tutor Name Role Phone Soren Mart MD Primary Care Provider [phone] Encounter Details Date Type Department Care Team (Late st Contact Info) Description 06/04/2006 Orders Only [facility] Internal Medicine [address] [address] Inge Hutson MD NO ADDRESS ON FILE Social History Tobacco Use Types Packs/Day Years Used Date Smoking Tobacco: Never Assessed Comments Unknown Sex and Gender Information Value Date Recorded Sex Assigned at Not on file Legal Sex Female 3:43 AM SENSITOMETRIST Gender Identity Not on file Sexual Orientation [...] NEW PRESCRIPTION, 06/04/2006. LAB ORDERS: Order number: [id number] Test Ordered: HEMOCCULT SINGLE [id number] + PATIENT EDUCATION: Questions were allowed to stated satisfaction. PREVENTIVE COUNSELING The patient was counseled regarding diet. RETURN VISIT : please waive todays co-pay Electronically Signed by: Inge Hutson MD on Wednesday, June 07, 2006 documented in this encounter Plan of Treatment Not on file documented as of this encounter Visit Diagnoses Not on filedocumented in this encounter Care Teams Bilingual Student Tutor Relationship Specialty Start Date End Date Soren Mart MD PCP - General 02/10/09 documented as of this encounter
--- OUTSIDE RECORDS SUMMARY | 2024-08-11 14:01 | XMS_ITS | Encounter Summary ---
Author Organization [facility] Address [address] [place] [address] Care Team Providers Care Veneer Trimmer Name Role Phone Soren Mart MD Primary Care Provider Encounter Details Date Type Department Care Team (Late st Contact Info) Description 06/04/2006 Outpatient Historical [facility] Internal Medicine [address] [address] Inge Hutson MD NO ADDRESS ON FILE Social History Tobacco Use Types Packs/Day Years Used Date Smoking Tobacco: Never Assessed Comments Unknown Sex and Gender Information Value Date Recorded Sex Assigned at Not on file Legal Sex Female 3:43 AM ARTIFICIAL INTELLIGENCE SPECIALIST Gender Identity Not on file Sexual Orientation Not on file documented as of this encounter Plan of Treatment Not on file documented as of this encounter Visit Diagnoses Not on filedocumented in this encounter Care Teams Veneer Trimmer Relationship Specialty Start Date End Date Soren Mart MD PCP - General 02/10/09 documented as of this encounter
--- OUTSIDE RECORDS SUMMARY | 2024-08-11 14:01 | XMS_ITS | Patient Health Summary ---
Author Organization [facility] Address [address] [place] [address] Care Team Providers Care Acds Block 1 Operator Name Role Phone Joy Gardner GWEN-JINGLE WRITER Primary Care Provider + Note from [facility],non-owned Affiliates and Associated Physician Practices is amultiple site organization consisting of ambulatory clinics and hospital sitesin [place], [place], [place] and [place]. This disclosure is being madepursuant to the Care Everywhere program and may not contain all information available regarding this patient. Last updated 18.[facility] Allergies No known active allergies Medications [...] 39.36 03/08/2021 1:33 PM CDT Procedures * HI MULTIPLE SLEEP LATENCY TEST(Performed 02/23/2021) Performed for Daytime hypersomnia, Obesity (BMI 30-39.9), Excessive daytime sleepiness, Chronic fatigue, Chronic insomnia, Inadequate sleep hygiene * HI POLYSOM 6/> YRS 4/> GOKUL(Performed 02/22/2021) Performed [...] sleepiness, Chronic fatigue, Chronic insomnia Results * HI MULTIPLE SLEEP LATENCY TEST (02/23/2021 11:28 AM CDT) Bert Narvaez MD - 02/23/2021 11:28 AM CDT Bert Graham MD 02/23/2021 11:32 AM Evy OLMEDO PROCEDUR E/MINOR SURGICAL ORDERABLES * HI POLYSOM 6/> YRS 4/> GOKUL (02/22/2021 12:48 PM CDT) Bert Narvaez MD - 02/22/2021 12:48 PM CDT Bert Graham MD 02/22/2021 12:50 PM [facility] Accredited by the [place] [employer] Formerly [facility], First Floor [address] [place] [address]. [place] [address] Telephone : [phone] Medical Records Patient Name: Bel Lee : 1990 Date of Study: 02/20/2021 Referring Physician: NA Holm Type of Montage: Respiratory Scoring System: [facility] FULL NIGHT DIAGNOSTIC POLYSOMNOGRAM INTERPRETATION (02/20/2021) Procedure: The polysomnogram was performed with a mammography technologist in attendance. Central, occipital, and temporal [...] oral appliance device trial Bert Graham MD, [facility], [facility], [facility] Solderer Torch, [facility] Professor of Internal Medicine Adjunct Fur Grader of Neurology Division of Pulmonary, Critical Care, and Sleep Medicine [facility] This note was electronically signed on 02/22/2021. [...] 154 ng/mL [facility] Comment: Test Performed at: [facility] [address] [place] [address] ZURDO COMBS DO,MPH Blood BLOOD SPECIMEN / Unknown 02/20/2021 3:15 PM CDT 02/20/2021 3:16 PM CDT Evy OLMEDO LAB - CH EMISTRY ORDERABLES [facility] [address] [place] [address] * METHYLMALONIC ACID BLOOD (02/20/2021 3:15 PM CDT) Methylmalonic Acid 205 87 - 318 nmol/L [facility] Comment: This test was developed and its analytical performance characteristics have been determined by [employer] [place], [place]. It has not been cleared or approved by the U.S. Food and Drug Administration. This assay has been validated pursuant to the CLIA regulations and is used for clinical purposes. Test Performed at: [facility] [id number] [place] [address] LUCINDA LAU MD,PHD Blood BLOOD SPECIMEN / Unknown 02/20/2021 3:15 PM CDT 02/20/2021 3:16 PM CDT Evy Perez APNP-JINGLE WRITER LAB - CH EMISTRY ORDERABLES [facility] [address] [place] [address] * VITAMIN D 25-HYDROXY (02/20/2021 3:15 PM [...] D, (D2,D3), LC/MS/MS is recommended: order code [id number] (patients >2yrs). See Note 1 Note 1 For additional information, please refer to [email or web address]/faq/MDE279 (This link is being provided for informational/ educational purposes only.) REPORT COMMENT: FASTING:NO Test Performed at: [facility] [address] [place] [address] ZURDO COMBS DO,MPH Blood BLOOD SPECIMEN / Unknown 02/20/2021 3:15 PM CDT 02/20/2021 3:16 PM CDT Evy Ramone Chris [facility] LAB - CH EMISTRY ORDERABLES Performing Organization Address [facility] de Phone Number [facility] [address] [place] [address] * (ABNORMAL) CBC W/O DIFFERENTIAL (02/20/2021 3:15 PM CDT) Pathologist [facility] White Blood Cell Count 9.4 3.8 - [...] 12.5 fL [facility] Comment: Test Performed at: [facility] [address] ZURDO COMBS DO,MPH Blood BLOOD SPECIMEN / Unknown 02/20/2021 3:15 PM CDT 02/20/2021 3:16 PM CDT Evy Ramone Chris [facility] LAB - HE MATOLOGY ORDERABLES Performing Organization Address [facility] de Phone Number [facility] [address] [place] [address] * BASIC METABOLIC PANEL (CALCIUM TOTAL) (02/20/2021 3:15 PM CDT) [facility] Glucose 90 65 - 139 mg/dL [...] 10.2 mg/dL [facility] Comment: Test Performed at: [facility] [place] [address] ZURDO COMBS DO,MPH Blood BLOOD SPECIMEN / Unknown 02/20/2021 3:15 PM CDT 02/20/2021 3:16 PM CDT Evy [facility] LAB - CH EMISTRY ORDERABLES Performing Organization Address [facility] Co de Phone Number [facility] [id number] [place] [address] * FOLATE (02/20/2021 3:15 PM CDT) Pathologist [facility] Folate 12.4 ng/mL [facility] Comment: Reference Range Low: <3.4 Borderline: 3.4-5.4 Normal: >5.4 Test Performed at: [facility] [place] [address] ZURDO COMBS DO,MPH Blood BLOOD SPECIMEN / Unknown 02/20/2021 3:15 PM CDT 02/20/2021 3:16 PM CDT Evy A [facility] LAB - EMISTRY ORDERABLES Performing Organization Address [facility] de Phone Number [facility] [id number] [place], [place] [id number] * VITAMIN B12 (02/20/2021 3:15 PM CDT) [...] pg/mL will have symptoms. Test Performed at: [facility] [employer] [facility] [place] [address] ZURDO COMBS DO,MPH Blood BLOOD SPECIMEN / Unknown 02/20/2021 3:15 PM CDT 02/20/2021 3:16 PM CDT Evy A Chris APEYIMY-JINGLE WRITER LAB - CH EMISTRY ORDERABLES Performing Organization Address [facility] Co de Phone Number [facility] [address] [place] [address] * TSH (02/20/2021 3:15 PM CDT) TSH 1.92 mIU/L [facility] Comment: Reference Range > or = 20 Years 0.40-4.50 Ranges First trimester 0.26-2.66 Second trimester 0.55-2.73 Third trimester 0.43-2.91 Test Performed at: [facility] [address] [place] [address] ZURDO COMBS DO,MPH Blood BLOOD SPECIMEN / Unknown 02/20/2021 3:15 PM CDT 02/20/2021 3:16 PM CDT Evy A Chris AP-JINGLE WRITER LAB - CH EMISTRY ORDERABLES Performing Organization Address City/[facility] Co de Phone Number [facility] [address] [place] [address] Care Teams Acds Block 1 Operator Relationship Specialty Start Date End Date Joy Gardner APRN-CNP [address] [address] PCP - General 02/13/21
--- OUTSIDE RECORDS SUMMARY | 2024-08-11 14:02 | XMS_ITS | Encounter Summary ---
Author Organization [employer] Address [address] [place] [address] Care Team Providers Care Bus Washer Name Role Phone Soren Mart MD Primary Care Provider [phone] Encounter Details Date Type Department Care Team (Latest Contact Info) Description 07/06/2005 Outpatient Historical HIS [facility] BLDG Conversion, History FX MID/PRX PHAL, HAND-CLOSE (Primary Dx) Social History Tobacco Use Types Packs/Day Years Used Date Smoking Tobacco: Never Assessed Comments Unknown Sex and Gender Information Value Date Recorded Sex Assigned at Not on file Legal Sex Female 3:43 AM FLEET ADMINISTRATOR Gender Identity Not on file Sexual Orientation Not on file documented as of this encounter Plan of Treatment Not on file documented as of this encounter Visit Diagnoses Diagnosis Closed fracture of middle or proximal phalanx or phalanges of hand- Primary documented in this encounter Care Teams Bus Washer Relationship Specialty Start Date End Date Soren Mart MD PCP - General 02/10/09 documented as of this encounter
--- OUTSIDE RECORDS SUMMARY | 2024-08-11 14:02 | XMS_ITS | Encounter Summary ---
Author Organization [facility] Address [address] [place] [address] Care Team Providers Care Financial Systems Administrator Name Role Phone Soren Mart MD Primary Care Provider Encounter Details Date Type Department Care Team (Late st Contact Info) Description 04/30/2006 Outpatient Historical [facility] Internal Medicine [address] [address] Inge Hutson MD NO ADDRESS ON FILE Social History Tobacco Use Types Packs/Day Years Used Date Smoking Tobacco: Never Assessed Comments Unknown Sex and Gender Information Value Date Recorded Sex Assigned at Not on file Legal Sex Female 3:43 AM ASPHALT PATCHER Gender Identity Not on file Sexual Orientation Not on file documented as of this encounter Plan of Treatment Not on file documented as of this encounter Visit Diagnoses Not on filedocumented in this encounter Care Teams Financial Systems Administrator Relationship Specialty Start Date End Date Soren Mart MD PCP - General 02/10/09 documented as of this encounter
--- OUTSIDE RECORDS SUMMARY | 2024-08-11 14:02 | XMS_ITS | Encounter Summary ---
Author Organization [employer] Address [address] [place] [address] Care Team Providers Care Coat Examiner Name Role Phone Soren Mart MD [...] on file Legal Sex Female 3:43 AM BARTENDER MANAGER Gender Identity Not on file Sexual Orientation Not on file documented as of this encounter Plan of Treatment Not on file documented as of this encounter Visit Diagnoses Diagnosis Other chest pain- Primary documented in this encounter Care Teams Coat Examiner Relationship Specialty Start Date End Date Soren Mart MD PCP - General 02/10/09 documented as of this encounter
--- OUTSIDE RECORDS SUMMARY | 2024-08-11 14:02 | XMS_ITS | Encounter Summary ---
Author Organization [facility] Address [address] [place] [address] Care Team Providers Care Downstream Biomanufacturing Technician Name Role Phone Soren Mart MD Primary Care Provider [phone] Encounter Details Date Type Department Care Team (Late st Contact Info) Description 04/24/2007 Orders Only [facility] Internal Medicine [address] [address] Inge Hutson MD NO ADDRESS ON FILE Social History Tobacco Use Types Packs/Day Years Used Date Smoking Tobacco: Never Assessed Comments Unknown Sex and Gender Information Value Date Recorded Sex Assigned at Not on file Legal Sex Female 3:43 AM HEAD OF VISUAL MERCHANDISING Gender Identity Not on file Sexual Orientation Not on file documented as of this encounter Progress Notes * Inge Hutson MD - 10/29/2007 5:13 PM CDT TIME:02:07 pm PATIENT`S HOME PHONE: PATIENT`S WORK PHONE: PAT[facility]`S [facility]URANCE[facility] WHO TOOK THE CALL: Amelia Lee R GENERAL INFORMATION ALTERNATIVE PHONE NUMBER: [phone] WHO CALLED: Patient`s mother called.Carly Cisneros CURRENT [...] irritated from contacts SECTION 1: REQUESTED ACTION burakrjr 04/24/07 at 02:16 pm: MEDICATION REQUEST: Patient [...] on filedocumented in this encounter Care Teams Downstream Biomanufacturing Technician Relationship Specialty Start Date End Date Soren Mart MD PCP - General 02/10/09 documented as of this encounter
--- OUTSIDE RECORDS SUMMARY | 2024-08-11 14:02 | XMS_ITS | Encounter Summary ---
Author Organization [facility] Address [address] [place] [address] Care Team Providers Care Service Shop Foreman Name Role Phone Soren Mart MD Primary Care Provider [phone] Encounter Details Date Type Department Care Team (Late st Contact Info) Description 07/06/2007 Orders Only [facility] Internal Medicine [address] [address] Inge Hutson MD NO ADDRESS ON FILE Social History Tobacco Use Types Packs/Day Years Used Date Smoking Tobacco: Never Assessed Comments Unknown Sex and Gender Information Value Date Recorded Sex Assigned at Not on file Legal Sex Female 3:43 AM DIRECTOR DATABASE Gender Identity Not on file Sexual Orientation Not on file documented as of this encounter Progress Notes * Inge Hutson MD - 10/28/2007 7:51 PM CDT TIME:11:07 am PATIENT`S HOME PHONE: PATIENT`S WORK PHONE: PATIENT`S INSURANCE: [facility] WHO TOOK THE CALL: Amelia Lee R GENERAL INFORMATION ALTERNATIVE PHONE NUMBER: [phone] or Jonas- Amelia WHO CALLED: Patient called. I know you are busy this am, Can you work Bel in? I think she may have the [...] filedocumented in this encounter Care Teams Service Shop Foreman Relationship Specialty Start Date End Date Soren Mart MD PCP - General 02/10/09 documented as of this encounter
--- OUTSIDE RECORDS SUMMARY | 2024-08-11 14:02 | XMS_ITS | Encounter Summary ---
Author Organization [employer] Address [address] [place] [address] Care Team Providers Care Sterile Supervisor Name Role Phone Soren Mart MD Primary Care Provider [phone] Encounter Details Date Type Department Care Team (Late st Contact Info) Description 01/15/2006 Outpatient [facility] NO ADDRESS ON FILE Pain in Joint, Ankle and Foot (Primary Dx) Social History Tobacco Use Types Packs/Day Years Used Date Smoking Tobacco: Never Assessed Comments Unknown Sex and Gender Information Value Date Recorded Sex Assigned at Not on file Legal Sex Female 3:43 AM DIRECTOR QUALITY ASSURANCE Gender Identity Not on file Sexual Orientation Not on file documented as of this encounter Plan of Treatment Not on file documented as of this encounter Visit Diagnoses Diagnosis Pain in joint, ankle and foot- Primary documented in this encounter Care Teams Sterile Supervisor Relationship Specialty Start Date End Date Soren Mart MD PCP - General 02/10/09 documented as of this encounter
--- OUTSIDE RECORDS SUMMARY | 2024-08-11 14:02 | XMS_ITS | Encounter Summary ---
Author Organization [facility] Address [address] [place] [address] Care Team Providers Care Char Dust Cleaner And Salvager Name Role Phone Soren Mart MD Primary Care Provider [phone] Encounter Details Date Type Department Care Team (Late st Contact Info) Description 05/20/2007 Orders Only [facility] Internal Medicine [address] [address] Inge Hutson MD NO ADDRESS ON FILE Social History Tobacco Use Types Packs/Day Years Used Date Smoking Tobacco: Never Assessed Comments Unknown Sex and Gender Information Value Date Recorded Sex Assigned at Not on file Legal Sex Female 3:[address] JUST[address] Gender Identity Not on file Sexual Orientation Not on file documented as of this encounter Progress Notes * Inge Hutson MD - 10/29/2007 9:49 AM CDT TIME:11:45 am PATIENT`S HOME PHONE: PATIENT`S WORK PHONE: PATIENT`S INSURANCE: [facility] WHO TOOK THE CALL: Amelia Lee R GENERAL INFORMATION ALTERNATIVE PHONE NUMBER: here WHO CALLED: Patient`s mother called. 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 Can you prescribe a few for the stomach cramps. She has to go back to school to be able to be in [employer]'s performance. NAUSEA: Patient complains of nausea. The [...] on filedocumented in this encounter Care Teams Char Dust Cleaner And Salvager Relationship Specialty Start Date End Date Soren Mart MD PCP - General 02/10/09 documented as of this encounter
--- OUTSIDE RECORDS SUMMARY | 2024-08-11 14:02 | XMS_ITS | Encounter Summary ---
Author Organization [facility] Address [address] [place] [address] Care Team Providers Care Digester Cook Name Role Phone Soren Mart MD Primary Care Provider Encounter Details Date Type Department Care Team (Late st Contact Info) Description 04/30/2006 Outpatient Historical [facility] Internal Medicine [address] [address] Inge Hutson MD NO ADDRESS ON FILE Social History Tobacco Use Types Packs/Day Years Used Date Smoking Tobacco: Never Assessed Comments Unknown Sex and Gender Information Value Date Recorded Sex Assigned at Not on file Legal Sex Female 3:43 AM INDUSTRIAL NURSE Gender Identity Not on file Sexual Orientation Not on file documented as of this encounter Plan of Treatment Not on file documented as of this encounter Visit Diagnoses Not on filedocumented in this encounter Care Teams Digester Cook Relationship Specialty Start Date End Date Soren Mart MD PCP - General 02/10/09 documented as of this encounter
--- OUTSIDE RECORDS SUMMARY | 2024-08-11 14:02 | XMS_ITS | Encounter Summary ---
Author Organization [employer] Address [address] [place] [address] Care Team Providers Care Head Buyer Tobacco Name Role Phone Soren Mart MD Primary Care Provider [phone] Encounter Details Date Type Department Care Team (Late st Contact Info) Description 05/21/2008 Outpatient Historical HIS [facility] Dario Coronel MD [address] [place] [address] Social History Tobacco Use Types Packs/Day Years Used Date Smoking Tobacco: Never Assessed Comments Unknown Sex and Gender Information Value Date Recorded Sex Assigned at Not on file Legal Sex Female 3:43 AM HEEL SEWER Gender Identity Not on file Sexual Orientation Not on file documented as of this encounter Plan of Treatment Not on file documented as of this encounter Procedures Procedure Name Priority Date/Time Associated Diagnosis Comments URINE CULTURE Routine 05/21/2008 11:47 AM HEEL SEWER documented in this encounter Results * URINE CULTURE (05/21/2008 11:47 AM HEEL SEWER) PRELIMINARY REPORT Pending [facility] FINAL REPORT No growth 24 hours [facility] 05/21/2008 11:4 7 AM HEEL SEWER 05/21/2008 6:10 PM HEEL SEWER us Dario Coronel MD MICROBIOLOGY - GENERAL ORDER ADAM Final Result INTERFACE SYSTEM Refer to clinic/hospital department [facility] CLIA# [id number] [address] [address] documented in this encounter Visit Diagnoses Not on filedocumented in this encounter Care Teams Head Buyer Tobacco Relationship Specialty Start Date End Date Soren Mart MD PCP - General 02/10/09 documented as of this encounter
--- OUTSIDE RECORDS SUMMARY | 2024-08-11 14:02 | XMS_ITS | Encounter Summary ---
Author Organization [facility] Address [address] [place] [address] Care Team Providers Care Dolphin Trainer Name Role Phone Soren Mart MD Primary Care Provider [phone] Encounter Details Date Type Department Care Team (Late st Contact Info) Description 07/08/2007 Orders Only [facility] Internal Medicine [address] [address] Inge Hutson MD NO ADDRESS ON FILE Social History Tobacco Use Types Packs/Day Years Used Date Smoking Tobacco: Never Assessed Comments Unknown Sex and Gender Information Value Date Recorded Sex Assigned at Not on file Legal Sex Female 3:43 AM FLAKE OR SHRED ROLL OPERATOR Gender Identity Not on file Sexual Orientation Not on file documented as of this encounter Progress Notes * Inge Hutson MD - 10/28/2007 8:18 PM CDT TIME:01:31 pm PATIENT`S HOME PHONE: PATIENT`S WORK PHONE: PATIENT`S INSURANCE: [facility] [employer] [facility] WHO TOOK THE CALL: Amelia Lee R GENERAL INFORMATION WHO CALLED: Patient`s mother called. CURRENT ALLERGY LIST: NO KNOWN DRUG ALLERGY PHARMACY NUMBER: [phone] PROBLEMS: CONGESTION: Patient complains of congestion. COUGH:Patient [...] 07/08/07 at 02:01 pm. Electronically Signed by: Chantelle Kathleen on Sunday, July 08, 2007 documented in this encounter Plan of Treatment Not on file documented as of this encounter Visit Diagnoses Not on filedocumented in this encounter Care Teams Dolphin Trainer Relationship Specialty Start Date End Date Soren Mart MD PCP - General 02/10/09 documented as of this encounter
--- OUTSIDE RECORDS SUMMARY | 2024-08-11 14:02 | XMS_ITS | Encounter Summary ---
Author Organization [facility] Address [address] [place] [address] Care Team Providers Care Prepared Foods Team Leader Name Role Phone Soren Mart MD Primary Care Provider [phone] Encounter Details Date Type Department Care Team (Late st Contact Info) Description 10/30/2005 Outpatient Historical [facility] Internal Medicine [address] [address] Inge Hutson MD NO ADDRESS ON FILE Social History Tobacco Use Types Packs/Day Years Used Date Smoking Tobacco: Never Assessed Comments Unknown Sex and Gender Information Value Date Recorded Sex Assigned at Not on file Legal Sex Female 3:43 AM CONVERTING TECHNICIAN Gender Identity Not on file Sexual [...] 10/30/2005 3:0 0 PM CDT Growth Chart: [facility] (Girls, 2- 20 Years) documented in this encounter Plan of Treatment Not on file documented as of this encounter Visit Diagnoses Not on filedocumented in this encounter Care Teams Prepared Foods Team Leader Relationship Specialty Start Date End Date Soren Mart MD PCP - General 02/10/09 documented as of this encounter
--- OUTSIDE RECORDS SUMMARY | 2024-08-11 14:02 | XMS_ITS | Encounter Summary ---
Author Organization [employer] [facility] Address [address] [place] [address] Care Team Providers Care Syrup Machine Laborer Name Role Phone Soren Mart MD Primary Care Provider [phone] Encounter Details Date Type Department Care Team (Latest Contact Info) Description 03/14/2005 Outpatient Historical HIS [facility] BLDG Conversion, History CHEST PAIN NEC (Primary Dx) Social History Tobacco Use Types Packs/Day Years Used Date Smoking Tobacco: Never Assessed Comments Unknown Sex and Gender Information Value Date Recorded Sex Assigned at Not on file Legal Sex Female 3:43 AM TABLEAU DEVELOPER Gender Identity Not on file Sexual Orientation [...] ORDERABLES Final R esult Performing Organization Address City/[facility] de Phone Number INTERFACE SYSTEM Refer to [...] ORDERABLES Final R esult Performing Organization Address City/[facility] de Phone Number INTERFACE SYSTEM Refer to [...] Primary documented in this encounter Care Teams Syrup Machine Laborer Relationship Specialty Start Date End Date Soren Mart MD PCP - General 02/10/09 documented as of this encounter
--- OUTSIDE RECORDS SUMMARY | 2024-08-11 14:02 | XMS_ITS | Encounter Summary ---
Author Organization [facility] Address [address] [place] [address] Care Team Providers Care Inhalation Therapist Name Role Phone Soren Mart MD Primary Care Provider Encounter Details Date Type Department Care Team (Late st Contact Info) Description 08/24/2007 Outpatient Historical [facility] Internal Medicine [address] [address] Soren Mart MD [address] [place] [address] Social History Tobacco Use Types Packs/Day Years Used Date Smoking Tobacco: Never Assessed Comments Unknown Sex and Gender Information Value Date Recorded Sex Assigned at Not on file Legal Sex Female 3:43 AM CAGE CASHIER Gender Identity Not on file Sexual Orientation Not on file documented as of this encounter Plan of Treatment Not on file documented as of this encounter Visit Diagnoses Not on filedocumented in this encounter Care Teams Inhalation Therapist Relationship Specialty Start Date End Date Soren Mart MD PCP - General 02/10/09 documented as of this encounter
--- OUTSIDE RECORDS SUMMARY | 2024-08-11 14:02 | XMS_ITS | Encounter Summary ---
Author Organization [facility] Address [address] [place] [address] Care Team Providers Care Pottery Decorator Name Role Phone Soren Mart MD Primary Care Provider [phone] Encounter Details Date Type Department Care Team [...] on file Legal Sex Female 3:43 AM MODEL MAKER SCALE Gender Identity Not on file Sexual Orientation [...] PM CDT Narrative 08/25/2008 9:51 PM CDT [place] [address] [place], [place] [address] Admit Date: 08/25/2008 ANNI BRYANT Sex: F Admit Prov: ER, AUTHORIZED P Date: 1990 Primary Care Prov: CMRN: [id number] Room: ER-A N: [address] [place] [address] IMAGING SERVICES Ordering Prov: N/A Accession Number: [id number] Interpretation EXAMINATION: LEFT FIFTH FINGER, 3 VIEWS. [...] Procedure Note Denver Panda MD - 08/25/2008 [place] [address] [place], [place] [address] Admit Date: 08/25/2008 ANNI BRYANT Sex: F Admit Prov: ER, AUTHORIZED P Date: 1990 Primary Care Prov: CMRN: [id number] [id number] Ordering Prov: N/A Interpretation EXAMINATION: [...] PANDA 08/25/2008 21:50 Transcribed: 08/25/2008 21:30 AMK Authorized P Er DIAGNOSTIC IMAGING ORDERABLES Fi nal Result documented in this encounter Visit Diagnoses Diagnosis Closed fracture of middle or proximal phalanx or phalanges of hand Other accident caused by striking against or being struck accidentally by objects or persons with or without subsequent fall Place of occurrence, industrial places and premises documented in this encounter Care Teams Pottery Decorator Relationship Specialty Start Date End Date Soren Mart MD PCP - General 02/10/09 documented as of this encounter
--- OUTSIDE RECORDS SUMMARY | 2024-08-11 14:02 | XMS_ITS | Encounter Summary ---
Author Organization [facility] Address [address] [place] [address] Care Team Providers Care Gas Line Installer Supervisor Name Role Phone Soren Mart MD Primary Care Provider [phone] Encounter Details Date Type Department Care Team (Late st Contact Info) Description 02/27/2012 Chart Note [facility] [place] [address] [facility] [address] [place] [address] Radha Mcallister, Physical Therapist Social History Tobacco Use Types Packs/Day Years Used Date Smoking Tobacco: Never Smokeless Tobacco: Never Alcohol Use Standard Drinks/Week Comments No 0 (1 standard drink = 0.6 oz pur e alcohol) Comments No Sex and Gender Information Value Date Recorded Sex Assigned at Not on file Legal Sex Female 3:43 AM BAKERY MANAGER Gender Identity Not on file Sexual [...] you for this referral. Radha Mcallister P.T[facility] Therapy Services [address] [place] [address]. [address] [place] [address] documented in this encounter Plan of Treatment Not on file documented as of this encounter Visit Diagnoses Not on filedocumented in this encounter Care Teams Gas Line Installer Supervisor Relationship Specialty Start Date End Date Soren Mart MD PCP - General 02/10/09 documented as of this encounter
--- OUTSIDE RECORDS SUMMARY | 2024-08-11 14:02 | XMS_ITS | Clinical Summary ---
Author Organization [facility] Address [address] [place] [address] Phone Care Team Providers Care Underwear Trimmer Name Role Phone Denny Norman MD Primary Care Provider [phone] Allergies No known active allergies Medications prazosin [...] drink = 0.6 oz pur e alcohol) [employer] Utilities Answer Date Recorded In the past 12 months has [employer], [employer], oil, or water [employer] threatened to shut off services in your [...] week 11/20/2023 How often do you attend [facility] or mormonism services? Patient declined 11/20/2023 Do you belong to any clubs o r organizations such as mosque groups, unions, fraternal or athletic groups, or [...] medical care, and heating? Patient declined 11/20/2023 [facility] - Occupational Stress Questionnaire Answer Date [...] place to sleep or slept in a penitentiary (including now)? No 11/20/2023 Education Answer Date Recorded What is the highest level of school you have completed or the highest degree you have received? Associate degree: academic program 01/08/2023 Sexually Active Control Partners Comments Yes None Male Comments No Sex and Gender Information Value Date Recorded Sex Assigned at Female 07/09/2023 12:53 PM CAREER AND TRANSITION TEACHER Legal Sex Female 1:59 PM CDT Gender Identity Female 07/09/2023 12:53 PM CAREER AND TRANSITION TEACHER Sexual Orientation Straight 07/09/2023 12 :53 PM CAREER AND TRANSITION TEACHER Last Filed Vital Signs Vital Sign [...] LAB - MISCELLANEOUS 06/09/2024 1 2:00 AM CAREER AND TRANSITION TEACHER COMPLETE BLOOD COUNT (CBC) WITH DIFF 06/03/2024 12:00 AM CAREER AND TRANSITION TEACHER LAB - MISCELLANEOUS 06/03/2024 1 2:00 AM CAREER AND TRANSITION TEACHER COMPLETE BLOOD COUNT (CBC) WITH DIFF 05/24/2024 12:00 AM CAREER AND TRANSITION TEACHER URINE PROTEIN/CREATININE RATIO (RANDOM) [facility] [id number] 05/24/2024 12:00 AM CAREER AND TRANSITION TEACHER URINALYSIS (UA) RANDOM 05/24/2024 12:00 AM CAREER AND TRANSITION TEACHER URIC ACID (BLOOD ASSAY) 05/24/2024 12:00 AM CAREER AND TRANSITION TEACHER CMP (COMPREHENSIVE METABOLIC PANEL) 05/24/2024 12:00 AM CAREER AND TRANSITION TEACHER HEPATITIS C ANTIBODY 02/24/2024 12:00 AM CDT HUMAN PAPILLOMA VIRUS (HPV) Routine 02/21/2023 2:35 PM CDT Well woman exam with routine gynecological exam PATHOLOGY CYTOLOGY BRAKE SPECIALIST Routine 02/21/2023 2:35 PM CDT Well woman exam with routine gynecological exam from Last 3 Months or Most Recently Relevant to Health Maintenance Results * LAB - MISCELLANEOUS (06/09/2024 12:00 AM CAREER AND TRANSITION TEACHER) Only the most recent of2 resultswithin the time period is included. 06/09/2024 us Provider Scan CHEMISTRY ORDERABLES Final Resul t SCAN * COMPLETE BLOOD COUNT (CBC) WITH DIFF (06/03/2024 12:00 AM CAREER AND TRANSITION TEACHER) Only the most recent of2 resultswithin the time period is included. 06/03/2024 us Provider Scan HEMATOLOGY ORDERABLES Final Resu lt Performing Organization Address [facility] de Phone Number SCAN * URINE PROTEIN/CREATININE RATIO (RANDOM) [facility] [id number] (05/24/2024 12:00 AM CAREER AND TRANSITION TEACHER) 05/24/2024 us Provider Scan LAB SEND OUTS Final Result Performing Organization Address [facility] de Phone Number SCAN * URINALYSIS (UA) RANDOM (05/24/2024 12:00 AM CAREER AND TRANSITION TEACHER) 05/24/2024 us Provider Scan URINE ORDERABLES Final Result Performing Organization Address [facility] de Phone Number SCAN * URIC ACID (BLOOD ASSAY) (05/24/2024 12:00 AM CAREER AND TRANSITION TEACHER) 05/24/2024 us Provider Scan CHEMISTRY ORDERABLES Final Resul t Performing Organization Address [facility] de Phone Number SCAN * CMP (COMPREHENSIVE METABOLIC PANEL) (05/24/2024 12:00 AM CAREER AND TRANSITION TEACHER) 05/24/2024 us Provider Scan CHEMISTRY ORDERABLES Final Resul t Performing Organization Address City/[facility] de Phone Number SCAN * HEPATITIS C ANTIBODY (02/24/2024 12:00 AM CDT) 02/24/2024 us Provider Scan CHEMISTRY ORDERABLES Final Resul t Performing Organization Address [facility]/ZIP Co de Phone Number SCAN * PATHOLOGY CYTOLOGY BRAKE SPECIALIST (02/21/2023 2:35 PM CDT) SPECIMEN ADEQUACY Satisfactory for evaluation. Endocervical/transf ormation zone component is present. 03/11/2023 3:22 PM CDT [facility] GENERAL CATEGORY EPITHELIAL CELL ABNORMALITY. 03/11/2023 3:22 PM CDT [facility] DESCRIPTIVE DIAGNOSIS ASCUS: Atypical squamous cells of undetermined significance. 03/11/2023 3:22 PM CDT [facility] R FINDINGS Fungal organisms present, morphologically consistent with Ricarda species. 03/11/2023 3:22 PM CDT [facility] Automated Examination Analysis of this sample has been assisted by an automated imaging and review system ([employer] System, [employer], [place], [place]). This case is further evaluated and finalized by a fishing boat mate and/or pathologist. 03/11/2023 3:22 PM CDT [facility] Disclaimer The PAP smear is a screening [...] unless clinically indicated. 03/11/2023 3:22 PM CDT [facility] Other CERVIX UTERI STRUCTURE / Unknown Non-Phlebotomy Collection / Unknown 02/21/2023 2:35 PM CDT 02/21/2023 2:35 PM CDT us Amelia Beard DISPLAY MECHANIC, READING INSTRUCTOR PATHOLOGY/CYTOLOGY ORDER ADAM Final Result Performing Organization Address City/[facility]/ZIP Co de Phone Number [facility] [address] [place] [address], [place] * (ABNORMAL) HUMAN PAPILLOMA VIRUS (HPV) (02/21/2023 2:35 PM CDT) HPV OTHER HIGH RISK TYPES, PCR POSITIVE(A) NEGATIVE 02/25/2023 7:37 AM CDT [facility] Comment: Positive for one or more of the following Other High HPV types: 31, 33, 35, 39, 45, 51, 52, 56, 58, 59, 66, and 68. False-positive results have been reported with molecular assays. If these positive results are discordant with clinical/cytohistologic findings, repeat testing may be considered after an appropriate interval. HPV TYPE 16 NEGATIVE NEGATIVE 02/25/2023 7:37 AM CDT [facility] Comment: A negative high-risk HPV result does [...] 18 NEGATIVE NEGATIVE 02/25/2023 7:37 AM CDT [facility] Comment: A negative high-risk HPV result does [...] OR DIAGNOSTIC SCREENING 02/25/2023 7:37 AM CDT [facility] Other Non-Phlebotomy Collection / Unknown 02/21/2023 2:35 PM CDT 02/21/2023 2:35 PM CDT Narrative [facility] - 02/25/2023 7:37 AM CDT Performed by Real-Time Polymerase Chain Reaction (PCR) on the Caryl Marcellus 4800. This assay has been validated for use with post-aliquot samples from the [employer] T5000 processor. us Amelia Beard APRN, READING INSTRUCTOR LAB SEND OUTS Final Re sult [facility] [address] [place] [address], [place] from Last 3 Months or Most Recently Relevant to Health Maintenance Insurance MEDICAID [facility] Care Teams Underwear Trimmer Relationship Specialty Start Date End Date Denny Norman MD [address] [address] PCP - General Family Medicine 01/08/23
--- OUTSIDE RECORDS SUMMARY | 2024-08-11 14:02 | XMS_ITS | Encounter Summary ---
Author Organization [facility] Address [address] [place] [address] Care Team Providers Care Explosive Ordnance Disposal Specialist Name Role Phone Porter Christianson MD Primary Care Provider [phone] Encounter Details Date Type Department Care Team (Latest Contact Info) Description 08/24/2007 Outpatient Historical [facility] Porter Christianson MD [address] [place] [address] Brain Injury NEC (CMS/HCC) Social History Tobacco Use Types Packs/Day Years Used Date Smoking Tobacco: Never Assessed Comments Unknown Sex and Gender Information Value Date Recorded Sex Assigned at Not on file Legal Sex Female 3:43 AM SWAGING MACHINE ADJUSTER Gender Identity Not on file Sexual Orientation [...] AM CDT Narrative 08/24/2007 1:35 PM CDT [facility] [address] [place], [place] [address] Admit Date: 08/24/2007 ANNI BRYANT Sex: F Admit Prov: PORTER CHRISTIANSON Date: 1990 Primary Care Prov: ALYX REGAN CMRN: [id number] [id number] [facility] Ordering Prov: N/A Accession Number: [id number] Interpretation CT HEAD WITHOUT CONTRAST, 08/23/2005 History: [...] CUONG SHAFFER 08/24/2007 13:35 Transcribed: 08/24/2007 13:11 [facility] Procedure Note Provider, Historical - 08/24/2007 [place] [id number] [place], [place] [address] Admit Date: 08/24/2007 ANNI BRYANT Sex: F Admit Prov: PORTER CHRISTIANSON Date: 1990 Primary Care Prov: ALYX REGAN CMRN: [id number] [id number] [facility] Ordering Prov: N/A Interpretation CT [...] open intracranial wound, unspecified state of consciousness (CMS/[facility]) Intracranial injury of other and unspecified nature, without mention of open intracranial wound, unspecified state of consciousness documented in this encounter Care Teams Explosive Ordnance Disposal Specialist Relationship Specialty Start Date End Date Porter Christianson MD PCP - General 02/10/09 documented as of this encounter
--- OUTSIDE RECORDS SUMMARY | 2024-08-11 14:02 | XMS_ITS | Encounter Summary ---
Author Organization [facility] Address [address] [place] [address] Phone Care Team Providers Care Journalism Intern Name Role Phone Denny Norman MD Primary Care Provider [phone] Encounter Details Date Type Department Care Team (Late st Contact Info) Description 01/02/2023 Telephone [facility] [address] [place] [address] Provider, None [place] Social History Tobacco Use Types Packs/Day Years Used Date Smoking Tobacco: Never Assessed Comments Unknown Sex and Gender Information Value Date Recorded Sex Assigned at Female 07/09/2023 12:53 PM CATERING OPERATIONS MANAGER Legal Sex Female 1:59 PM CDT Gender Identity Female 07/09/2023 12:53 PM CATERING OPERATIONS MANAGER Sexual Orientation Straight 07/09/2023 12 :53 PM CATERING OPERATIONS MANAGER documented as of this encounter Miscellaneous Notes [...] see someone other than physician, such as DIRECTOR OF KIDS, [place], resident? yes Patient reason for appointment/any current symptoms: establish care med refills Other information (including need for park interpreter): no documented in this encounter Plan of Treatment Not on file documented as of this encounter Visit Diagnoses Not on filedocumented in this encounter Care Teams Journalism Intern Relationship Specialty Start Date End Date Denny Norman MD [address] [address] PCP - General Family Medicine 01/08/23 documented as of this encounter
--- OUTSIDE RECORDS SUMMARY | 2024-08-11 14:02 | XMS_ITS | Encounter Summary ---
Author Organization [facility] Address [address] [place] [address] Care Team Providers Care Data Management Name Role Phone Soren Mart MD Primary Care Provider [phone] Encounter Details Date Type Department Care Team (Late st Contact Info) Description 09/07/[address] [facility] Internal Medicine [address] [address] Inge Hutson MD NO ADDRESS ON FILE Social History Tobacco Use Types Packs/Day Years Used Date Smoking Tobacco: Never Assessed Comments Unknown Sex and Gender Information Value Date Recorded Sex Assigned at Not on file Legal Sex Female 3:43 AM MEMBERSHIP ADVISOR Gender Identity Not on file Sexual Orientation Not on file documented as of this encounter Progress Notes * Inge Hutson MD - 11/19/2007 7:35 PM CDT TIME:02:22 pm PATIENT`S HOME PHONE: PATIENT`S WORK PHONE: PATIENT`S INSURANCE: [facility] [email or web address] [facility] WHO TOOK THE CALL: Thuan Cohen N Julia GENERAL INFORMATION ALTERNATIVE PHONE NUMBER: [phone] WHO CALLED: Patient`s mother called. CURRENT ALLERGY LIST: NO KNOWN DRUG ALLERGY PHARMACY NUMBER: [phone] [facility] PROBLEMS: VAGINAL DISCHARGE: [...] some metrogel but would have her see vocational technical education teacher if her sx persist. MEDICATIONS: Call in [...] on filedocumented in this encounter Care Teams Data Management Relationship Specialty Start Date End Date Soren Mart MD PCP - General 02/10/09 documented as of this encounter
--- OUTSIDE RECORDS SUMMARY | 2024-08-11 14:02 | XMS_ITS | Encounter Summary ---
Author Organization [facility] Address [address] [place] [address] Care Team Providers Care Wax Pattern Repairer Name Role Phone Soren Mart MD Primary Care Provider Encounter Details Date Type Department Care Team (Late st Contact Info) Description 03/14/2005 Outpatient Historical [facility]eds [facility]iology[facility] [address] [facility] [address] Warner Flores MD NO ADDRESS ON FILE Social History Tobacco Use Types Packs/Day Years Used Date Smoking Tobacco: Never Assessed Comments Unknown Sex and Gender Information Value Date Recorded Sex Assigned at Not on file Legal Sex Female 3:43 AM GATEMAN Gender Identity Not on file Sexual Orientation Not on file documented as of this encounter Plan of Treatment Not on file documented as of this encounter Visit Diagnoses Not on filedocumented in this encounter Care Teams Wax Pattern Repairer Relationship Specialty Start Date End Date Soren Mart MD PCP - General 02/10/09 documented as of this encounter
--- OUTSIDE RECORDS SUMMARY | 2024-08-11 14:02 | XMS_ITS | Encounter Summary ---
Author Organization [facility] Address [address] [place] [address] Care Team Providers Care Furnace Tender Name Role Phone Soren Mart MD Primary Care Provider [phone] Encounter Details Date Type Department Care Team (Late st Contact Info) Description 07/06/2007 Outpatient Historical [facility] Internal Medicine [address] [address] Inge Hutson MD NO ADDRESS ON FILE Social History Tobacco Use Types Packs/Day Years Used Date Smoking Tobacco: Never Assessed Comments Unknown Sex and Gender Information Value Date Recorded Sex Assigned at Not on file Legal Sex Female 3:43 AM THREAD CUTTER TENDER Gender Identity Not on file Sexual Orientation Not on file documented as of this encounter Last Filed Vital Signs Vital Sign Reading Time Taken Comments Blood Pressure - - Pulse - - Temperature 37 C (98.6 F) 07/06/2007 11:45 AM THREAD CUTTER TENDER Respiratory Rate - - Oxygen Saturation - - Inhaled Oxygen Concentration - - Weight 68 kg (150 lb) 07/06/2007 11:45 AM THREAD CUTTER TENDER Height - - Body Mass Index - - documented in this encounter Plan of Treatment Not on file documented as of this encounter Visit Diagnoses Not on filedocumented in this encounter Care Teams Furnace Tender Relationship Specialty Start Date End Date Soren Mart MD PCP - General 02/10/09 documented as of this encounter
--- OUTSIDE RECORDS SUMMARY | 2024-08-11 14:02 | XMS_ITS | Encounter Summary ---
Author Organization [facility] Address [address] [place] [address] Care Team Providers Care Explosive Specialist Name Role Phone Soren Mart MD Primary Care Provider [phone] Encounter Details Date Type Department Care Team (Late st Contact Info) Description 09/22/2008 Outpatient Historical [facility] Elmo Reich MD [address] [facility] [address] [place] [address] Social History Tobacco Use Types Packs/Day Years Used Date Smoking Tobacco: Never Assessed Comments Unknown Sex and Gender Information Value Date Recorded Sex Assigned at Not on file Legal Sex Female 3:43 AM DEPARTMENTAL BUYER Gender Identity Not on file Sexual Orientation [...] AM CDT Narrative 10/01/2008 11:40 AM CDT [place] [address] [place], [place] [address] Admit Date: 09/23/2008 ANNI BRYANT Sex: F Admit Prov: ELMO REICH Date: 1990 Primary Care Prov: CMRN: [id number] Room: [facility]G-A N: [id number] IMAGING SERVICES Ordering Prov: ELMO REICH Accession Number: [id number] Interpretation Fluoroscopic guidance was used by the surgeon to assist with performance of this intra-operative procedure. Please refer to surgeon s operative report for specific details. Dictated by: RADIOLOGY, DEPARTMENT O Electronically signed by: RADIOLOGY, DEPARTMENT 10/01/2008 11:39 Transcribed: 10/01/2008 07:42 AMK Procedure Note Radiology, Radiologist - 10/01/2008 [place] [address] [place], [place] [address] Admit Date: 09/23/2008 ANNI BRYANT Sex: F Admit Prov: ELMO REICH Date: 1990 Primary Care Prov: CMRN: [id number] [id number] [facility] Ordering Prov: ELMO REICH Interpretation Fluoroscopic guidance was used by the surgeon to assist withperformance of this intra-operative procedure. Please refer to surgeon s operativereport for specific details. Dictated by: RADIOLOGY, DEPARTMENT O Electronically signed by: RADIOLOGY, DEPARTMENT 10/01/2008 11:39 Transcribed: 10/01/2008 07:42 AMK Elmo Reich MD DIAGNOSTIC IMAGING ORDERABLES Final Result * POC , URINE (09/23/2008 10:00 AM CDT) , URINE POC Negative Negative [facility] Urine specimen (specimen) 09/23/2008 10:00 AM CDT 09/23/2008 10:00 AM CDT Elmo Reich MD POINT OF CARE TESTING Final Re sult Performing Organization Address City/[facility] de Phone Number INTERFACE SYSTEM Refer to clinic/hospital department [facility] CLIA# [id number] [address] [place] [address] * HEMOGLOBIN AND HEMATOCRIT (09/23/2008 9:50 AM CDT) HEMOGLOBIN 12.3 11.8 - 14.8 g/dL [facility] HEMATOCRIT 37.5 35.5 - 44.0 % [facility] Blood specimen (specimen) 09/23/2008 9:50 AM CDT 09/23/2008 10:05 AM CDT Narrative INTERFACE SYSTEM - 09/23/2008 10:15 AM CDT room 6 Elmo Reich MD HEMATOLOGY ORDERABLES Final Re sult Performing Organization Address [facility] Phone Number INTERFACE SYSTEM Refer to clinic/hospital department [facility] CLIA# [id number] [address] [place] [address] documented in this encounter Visit Diagnoses Not on filedocumented in this encounter Care Teams Explosive Specialist Relationship Specialty Start Date End Date Soren Mart MD PCP - General 02/10/09 documented as of this encounter
--- OUTSIDE RECORDS SUMMARY | 2024-08-11 14:02 | XMS_ITS | Encounter Summary ---
Author Organization [facility] Address [address] [place] [address] Care Team Providers Care Nursing Home Administrator Name Role Phone Soren Mart MD Primary Care Provider [phone] Encounter Details Date Type Department Care Team (Late st Contact Info) Description 02/04/2006 Orders Only [facility] Internal Medicine [address] [address] Inge Hutson MD NO ADDRESS ON FILE Social History Tobacco Use Types Packs/Day Years Used Date Smoking Tobacco: Never Assessed Comments Unknown Sex and Gender Information Value Date Recorded Sex Assigned at Not on file Legal Sex Female 3:43 AM SENIOR COURTROOM CLERK Gender Identity Not on file Sexual Orientation Not on file documented as of this encounter Progress Notes * Inge Hutson MD - 03/24/2008 11:14 PM CDT TIME:01:35 pm PATIENT`S HOME PHONE: PATIENT`S WORK PHONE: PATIENT`S INSURANCE: [facility] [employer] [facility] WHO TOOK THE CALL: Amelia Lee R GENERAL INFORMATION ALTERNATIVE PHONE NUMBER: [phone]-Amelia WHO CALLED: Patient`s mother called. CURRENT ALLERGY LIST: NO KNOWN DRUG ALLERGY PHARMACY NUMBER: [phone] PROBLEMS: EARACHE: Patient complains of earache. The [...] on filedocumented in this encounter Care Teams Nursing Home Administrator Relationship Specialty Start Date End Date Soren Mart MD PCP - General 02/10/09 documented as of this encounter
--- OUTSIDE RECORDS SUMMARY | 2024-08-11 14:02 | XMS_ITS | Encounter Summary ---
Author Organization [employer] Address [address] [place] [address] Care Team Providers Care Insurance Territory Manager Name Role Phone Soren Mart MD Primary Care Provider Encounter Details Date Type Department Care Team (Latest Contact Info) Description 07/19/2004 Outpatient Historical [facility] [address] [place] [address] DEPRESSIVE DISORDER NEC (Primary Dx) Social History Tobacco Use Types Packs/Day Years Used Date Smoking Tobacco: Never Assessed Comments Unknown Sex and Gender Information Value Date Recorded Sex Assigned at Not on file Legal Sex Female 3:43 AM SHIPFITTERS SUPERVISOR Gender Identity Not on file Sexual Orientation Not on file documented as of this encounter Plan of Treatment Not on file documented as of this encounter Visit Diagnoses Diagnosis Depressive disorder, not elsewhere classified- Primary documented in this encounter Care Teams Insurance Territory Manager Relationship Specialty Start Date End Date Soren Mart MD PCP - General 02/10/09 documented as of this encounter
--- OUTSIDE RECORDS SUMMARY | 2024-08-11 14:02 | XMS_ITS | Encounter Summary ---
Author Organization [employer] Address [address] [place] [address] Care Team Providers Care Motorized Squad Captain Name Role Phone Soren Mart MD Primary Care Provider [phone] Encounter Details Date Type Department Care Team (Late st Contact Info) Description 02/04/2008 Outpatient Historical [facility], Authorized P NO ADDRESS ON FILE Ingrid Giang NP [address] [facility] [address] [place] [address] Social History Tobacco Use Types Packs/Day Years Used Date Smoking Tobacco: Never Assessed Comments Unknown Sex and Gender Information Value Date Recorded Sex Assigned at Not on file Legal Sex Female 3:43 AM WINDOWS SERVER SPECIALIST Gender Identity Not on file Sexual [...] PM CDT Narrative 02/04/2008 1:46 PM CDT [place] [address] [place], [place] [address] Admit Date: 02/04/2008 ANNI BRYANT Sex: F Admit Prov: IZA STEVENS Date: 1990 Primary Care Prov: CMRN: [id number] Room: [facility] SSN: [id number] IMAGING SERVICES Ordering Prov: N/A Accession Number: [id number] Interpretation Sinuses complete 4 views 02/04/2008 History: Headache. Findings: The paranasal sinuses are clear. The orbits are intact. The soft tissues are unremarkable. Impression: Unremarkable study. . Dictated by: VANDANA MCCRARY 02/04/2008 13:43 Electronically signed by: VANDANA MCCRARY 02/04/2008 13:44 Procedure Note Vandana Mccrary - 02/04/2008 [facility] [address] [place], [place] [address] Admit Date: 02/04/2008 ANNI BRYANT Sex: F Admit Prov: ER, AUTHORIZED P Date: 1990 Primary Care Prov: CMRN: [id number] [facility]: [id number] IMAGING SERVICES Ordering Prov: N/A Interpretation Sinuses complete 4 views 02/04/2008 History: Headache. Findings: The paranasal sinuses are clear. The orbits are intact. Thesoft tissues are unremarkable. Impression: Unremarkable study. . Dictated by: VANDANA MCCRARY 02/04/2008 13:43 Electronically signed by: VANDANA MCCRARY 02/04/2008 13:44 Ingrid Giang NP DIAGNOSTIC IMAGING ORDERABLES Final Result * URINALYSIS (02/04/2008 1:15 PM CDT) KETONES UA Negative Negative [facility] CLARITY UA Clear Clear [facility] BILIRUBIN UA Negative Negative [facility] PROTEIN UA Negative Negative [facility] LEUKOCYTE ESTERASE UA Negative Negative [facility] SPECIFIC GRAVITY UA 1.005 1.001 - 1.035 [facility] GLUCOSE UA Negative Negative [facility] BLOOD UA Negative Negative [facility] COLOR UA Pale Yellow [facility] NITRITE UA Negative Negative [facility] UROBILINOGEN UA <1 <=1 mg/dL [facility] PH UA 7.0 5.0 - 8.0 [facility] 02/04/2008 1:15 PM CDT 02/04/2008 1:17 PM CDT Ingrid Giang NP URINE ORDERABLES Final Result INTERFACE SYSTEM Refer to clinic/hospital department [facility] CLIA# [id number] [address] [place] [address] * URINALYSIS WITH REFLEX CULTURE (02/04/2008 1:15 PM CDT) [facility] URINE CULTURE ORDER Not indicated [facility] Comment: Criteria for a reflex culture include one or more of the following: Abnormal nitrite, leukocyte esterase, WBCs or RBCs. Lack of qualifying criteria does not exclude the possiblity of a urinary tract infection. Dilute urine, drug interference, etc. may decrease the sensitivity of the criteria analytes. Urine specimen (specimen) 02/04/2008 1:15 PM CDT 02/04/2008 1:17 PM CDT Ingrid Giang BIOPROCESSING MANUFACTURING TECHNICIAN URINE ORDERABLES Final Result Performing Organization Address [facility] de Phone Number INTERFACE SYSTEM Refer to clinic/hospital department [facility] CLIA# [id number] [address] [place] [address] * POC , URINE (02/04/2008 1:11 PM CDT) [facility] , URINE POC Negative Negative [facility] SPECIFIC GRAVITY UA 1.010 1.001 - 1.035 [facility] Urine specimen (specimen) 02/04/2008 1:11 PM CDT 02/04/2008 1:11 PM CDT us Authorized P Er POINT OF CARE TESTING Final Resu lt Performing Organization Address [facility] de Phone Number INTERFACE SYSTEM Refer to clinic/hospital department [facility] CLIA# [id number] [address] [place] [address] * POC URINALYSIS DIPSTICK (02/04/2008 1:09 PM CDT) [facility] CLARITY UA Clear [facility] PROTEIN UA Negative Negative [facility] BLOOD UA Negative Negative [facility] LEUKOCYTE ESTERASE UA Negative Negative [facility] UROBILINOGEN UA Normal <=1 mg/dL [facility] SPECIFIC GRAVITY UA 1.010 1.001 - 1.030 [facility] GLUCOSE UA Negative Negative [facility] COLOR UA Pale [facility] BILIRUBIN UA Negative Negative [facility] NITRITE UA Negative Negative [facility] PH UA 7.0 5.0 - 8.0 [facility] KETONES UA Negative Negative [facility] COMMENT, URINE Test not chrgd/to repeat [facility] Urine specimen (specimen) 02/04/2008 1:09 PM CDT 02/04/2008 1:09 PM CDT us Authorized P Er POINT OF CARE TESTING Edited INTERFACE SYSTEM Refer to clinic/hospital department [facility] CLIA# [id number] [address] [place] [address] * (ABNORMAL) CBC WITH DIFFERENTIAL (02/04/2008 11:50 AM CDT) WBC 10.4(H) 4.0 - 9.8 K/uL [facility] MCH 30.4 27.2 - 32.6 pg [facility] MPV 10.3 9.3 - 12.4 fL [facility] HEMATOCRIT 37.5 35.5 - 44.0 % [facility] RDW-STDEV 42.9 37.1 - 48.7 fL [facility] RBC 4.08 3.90 - 4.90 M/uL [facility] MCHC 33.1 31.5 - 35.5 % [facility] MCV 91.9 82.0 - 99.0 fL [facility] PLATELETS 224 140 - 350 K/uL [facility] HEMOGLOBIN 12.4 11.8 - 14.8 g/dL [facility] RDW 12.7 11.5 - 14.5 % [facility] PLATELET EST. Consistent w/ count Normal [facility] LYMPHOCYTES 11(L) 16 - 45 % [facility] BASOPHILS ABSOLUTE 0.00 0.00 - 0.20 K/uL [facility] BASOPHILS 0 0 - 2 % [facility] MONOCYTE ABSOLUTE 0.31 0.10 - 1.30 K/uL [facility] MONOCYTES 3 3 - 13 % [facility] RBC MORPHOLOGY Normal Normal [facility] NEUTROPHIL ABSOLUTE 8.84(H) 1.90 - 7.00 K/uL [facility] NEUTROPHILS, SEG 85(H) 45 - 70 % [facility] ATYPICAL LYMPHOCYTE 1 0 - 5 % [facility] EOSINOPHIL ABSOLUTE 0.00 0.00 - 0.70 K/uL [facility] REVIEWED ON SMEAR Plt OK by Smear Rev. [facility] EOSINOPHILS 0 0 - 7 % [facility] LYMPHOCYTE ABSOLUTE 1.25 0.70 - 4.50 K/uL [facility] Blood specimen (specimen) 02/04/2008 11:50 AM CDT 02/04/2008 11:55 AM CDT us Ingrid Giang NP HEMATOLOGY ORDERABLES Edited INTERFACE SYSTEM Refer to clinic/hospital department [facility] CLIA# [id number] [address] [facility] [place] [address] * MONONUCLEOSIS SCREEN (02/04/2008 11:50 AM CDT) MONONUCLEOSIS SCREEN Negative Negative [facility] Blood specimen (specimen) 02/04/2008 11:50 AM CDT 02/04/2008 11:55 AM CDT Ingrid Giang NP HEMATOLOGY ORDERABLES Final R esult Performing Organization Address [facility] de Phone Number INTERFACE SYSTEM Refer to clinic/hospital department [facility] CLIA# [id number] [address] [place] [address] * C-REACTIVE PROTEIN (02/04/2008 11:50 AM CDT) Pathologist [facility] CRP 0.2 0.0 - 0.8 mg/dL [facility] Blood specimen (specimen) 02/04/2008 11:50 AM CDT 02/04/2008 11:55 AM CDT Ingrid Giang NP CHEMISTRY ORDERABLES Final Re sult Performing Organization Address [facility] de Phone Number INTERFACE SYSTEM Refer to clinic/hospital department [facility] CLIA# [id number] [address] [place] [address] * COMPREHENSIVE METABOLIC PANEL (02/04/2008 11:50 AM CDT) ALKALINE PHOSPHATASE 65 35 - 187 U/L [facility] BILIRUBIN TOTAL 0.4 0.2 - 1.0 mg/dL [facility] CO2 23 22 - 30 mmol/L [facility] TOTAL PROTEIN 7.1 6.3 - 8.6 g/dL [facility] POTASSIUM 3.9 3.5 - 4.9 mmol/L [facility] GLUCOSE 101 60 - 110 mg/dL [facility] AST 16 12 - 32 U/L [facility] BUN 10 6 - 20 mg/dL [facility] CALCIUM 9.0 8.4 - 10.2 mg/dL [facility] Comment:Note new reference r percy effective 01/14/08 CHLORIDE 103 96 - 108 mmol/L [facility] ALBUMIN 4.4 3.2 - 4.5 g/dL [facility] CREATININE 0.64 0.51 - 0.95 mg/dL [facility] SODIUM 135 135 - 145 mmol/L [facility] ALT 14 0 - 31 U/L [facility] GFR, N/A:MDRD equation validated for pts. >18 yrs. >=60 mL/min/1 .7 sq meter [facility] GFR N/A:MDRD equation validated for pts. >18 yrs. >=60 mL/min/1 .7 sq meter [facility] Comment: Modification of Diet in Renal Disease (MDRD) study formula. Estimated GFR rate interpretative information for both Americans and non- Americans is available on the [facility] Intranet at: [email or web address] Select: Lab Policies and Procedures Select: Reference Ranges - GFR Blood specimen (specimen) 02/04/2008 11:50 AM CDT 02/04/2008 11:55 AM CDT Ingrid Giang BIOPROCESSING MANUFACTURING TECHNICIAN CHEMISTRY ORDERABLES Edited INTERFACE SYSTEM Refer to clinic/hospital department [facility] CLIA# [id number] [address] [place] [address] documented in this encounter Visit Diagnoses Not on filedocumented in this encounter Care Teams Motorized Squad Captain Relationship Specialty Start Date End Date Soren Mart MD PCP - General 02/10/09 documented as of this encounter
--- OUTSIDE RECORDS SUMMARY | 2024-08-11 14:02 | XMS_ITS | Encounter Summary ---
Author Organization [facility] Address [address] [place] [address] Care Team Providers Care Farm Advisor Name Role Phone Soren Mart MD Primary Care Provider [phone] Encounter Details Date Type Department Care Team (Late st Contact Info) Description 08/24/2007 Outpatient Historical [facility] Internal Medicine [address] [address] Soren Mart MD [address] [place] [address] Social History Tobacco Use Types Packs/Day Years Used Date Smoking Tobacco: Never Assessed Comments Unknown Sex and Gender Information Value Date Recorded Sex Assigned at Not on file Legal Sex Female 3:43 AM SUPERVISOR RESIDENTIAL Gender Identity Not on file Sexual Orientation Not on file documented as of this encounter Plan of Treatment Not on file documented as of this encounter Visit Diagnoses Not on filedocumented in this encounter Care Teams Farm Advisor Relationship Specialty Start Date End Date Soren Mart MD PCP - General 02/10/09 documented as of this encounter
--- OUTSIDE RECORDS SUMMARY | 2024-08-11 14:02 | XMS_ITS | Encounter Summary ---
Author Organization [employer] Address [address] [place] [address] Care Team Providers Care Crane Operator Cab Name Role Phone Soren Mart MD Primary Care Provider [phone] Encounter Details Date Type Department Care Team (Latest Contact Info) Description 04/27/2008 Outpatient Historical [facility], [place] Conversion, History Urinary Tract Infection, Site not Specified Social History Tobacco Use Types Packs/Day Years Used Date Smoking Tobacco: Never Assessed Comments Unknown Sex and Gender Information Value Date Recorded Sex Assigned at Not on file Legal Sex Female 3:43 AM CLAY WASHER Gender Identity Not on file Sexual Orientation Not on file documented as of this encounter Plan of Treatment Not on file documented as of this encounter Procedures Procedure Name Priority Date/Time Associated Diagnosis Comments CHLAMYDIA/N. GONORRHOEAE, DNA Routine 04/27/2008 7:34 PM CLAY WASHER URINE CULTURE Routine 04/27/2008 7:34 PM CLAY WASHER documented in this encounter Results * URINE CULTURE (04/27/2008 7:34 PM CLAY WASHER) FINAL REPORT 50-100,000 colonies/mL Escherichia coli <10,000 colonies/mL Streptococcus Group B -NOTE: In women, recovery of Group B Streptococcus may be significant. However, in non- women, recovery in small quantities suggests contamination with blue urethral maureen. Normal urethral maureen also present. - Phoned report (with read back verified) to [facility] () 04/29/08 10:43:23 -- Faxed report(s): [phone] [facility] SUSCEPTIBILITY PERFORMED ON ESCHERICHIA COLI [facility] 04/27/2008 7:34 PM CLAY WASHER 04/27/2008 8:27 PM CLAY WASHER Narrative Organism Antibiotic Method Susceptibility Escherichia coli [...] MICROBIOLOGY - GENERAL ORDERA BLES Final Result Performing Organization Address City/[facility]/ZIP Co de Phone Number INTERFACE SYSTEM Refer to clinic/hospital department [facility] CLIA# [id number] [address] [place] [address] * CHLAMYDIA/N. GONORRHOEAE, DNA (04/27/2008 7:34 PM CLAY WASHER) CHLAMYDIA TRACHOMATIS DNA NOT DETECTED NOT DETECTED [facility] NEISSERIA GONORRHOEAE DNA NOT DETECTED NOT DETECTED [facility] Comment: Lab test performed by: [facility] [address] [address] ZURDO FIGUEROA MD Specimen of unknown material (specimen) URINE SPECIMEN / Unknown 04/27/2008 7:34 PM CLAY WASHER 04/27/2008 8:08 PM CLAY WASHER us History Conversion BODY FLUIDS AND STOOLS Final Result Performing Organization Address City/[facility]/ZIP Co de Phone Number INTERFACE SYSTEM Refer to clinic/hospital department [facility] CLIA# [id number] [address] [place] [address] documented in this encounter Visit Diagnoses Diagnosis Urinary tract infection, site not specified documented in this encounter Care Teams Crane Operator Cab Relationship Specialty Start Date End Date Soren Mart MD PCP - General 02/10/09 documented as of this encounter
--- OUTSIDE RECORDS SUMMARY | 2024-08-11 14:02 | XMS_ITS | Encounter Summary ---
Author Organization [employer] Address [address] [place] [address] Care Team Providers Care Roof Fitter Name Role Phone Soren Mart MD Primary Care Provider [phone] Encounter Details Date Type Department Care Team (Latest Contact Info) Description 02/06/2009 Outpatient Historical [facility] Soren Mart MD [address] [place] [address] Head Injury, Unspecified Social History Tobacco Use Types Packs/Day Years Used Date Smoking Tobacco: Never Alcohol Use Standard Drinks/Week Comments Not Asked 0 (1 standard drink = 0.6 oz pur e alcohol) Comments No Sex and Gender Information Value Date Recorded Sex Assigned at Not on file Legal Sex Female 3:43 AM PIPE STRIPPER Gender Identity Not on file Sexual Orientation Not on file documented as of this encounter Plan of Treatment Not on file documented as of this encounter Visit Diagnoses Diagnosis Head injury, unspecified documented in this encounter Care Teams Roof Fitter Relationship Specialty Start Date End Date Soren Mart MD PCP - General 02/10/09 documented as of this encounter
[2024-08-11 14:14] LABS: Basophils Percent Auto 0.2 % (0.2-1.2); Eosinophils Absolute Auto 0.1 K/mm3 (0-0.3); Eosinophils Percent Auto 0.6 % (0-4.4); Hematocrit 34.6 % (37.0-47.0); Hemoglobin 11.2 g/dL (12.0-15.0); Immature Granulocyte Absolute 0.18 K/mm3 (0.00-0.031); Immature Granulocyte Percent A 1.1 % (0-0.5); Lymphocytes Absolute Auto 2.67 K/mm3 (0.9-3.2); Lymphocytes Percent Auto 16.5 % (18.3-44.2); Mean Corpuscular HGB Conc 32.4 g/dl (32-36); Mean Corpuscular Hemoglobin 31.2 pg (26-34); Mean Corpuscular Volume 96.4 fl (80-100); Mean Platelet Volume 9.7 fl (7.4-10.4); Monocytes Absolute Auto 0.7 K/mm3 (0.1-0.6); Monocytes Percent Auto 4.4 % (2.6-8.5); Neutrophils Absolute Auto 12.5 K/mm3 (1.3-6.7); Neutrophils Percent Auto 77.2 % (45.5-73.1); Platelet Count Result 270 k/mm3 (150-375); Red Blood Count 3.59 M/mm3 (4.2-5.4); Red Cell Distribution Width 13.1 % (11.5-14.5); White Blood Count 16.2 K/mm3 (4.5-10.0)
[2024-08-11] MEDS: FAMOTIDINE 20 MG TABLET PO (14:15)
[2024-08-11] MEDS: LOPERAMIDE HCL 2 MG CAPSULE PO (14:15)
[2024-08-11] MEDS: SIMETHICONE 80 MG TAB.CHEW PO (14:15)
[2024-08-11 17:00] LABS: Alanine Aminotransferase 10 U/L (6-35); Albumin Level 3.4 g/dL (3.5-5.1); Alkaline Phosphatase 100 U/L (38-126); Amylase 65 U/L (30-110); Anion Gap 9 mmol/L (4-12); Aspartate Amino Transferase 13 U/L (14-36); Bilirubin,Total 0.4 mg/dL (0.2-1.3); Blood Urea Nitrogen 6 mg/dL (7-17); Calcium 9.1 mg/dL (8.4-10.2); Carbon Dioxide 24 mmol/L (22-30); Chloride 102 mmol/L (98-107); Estimated Glomerular Filt Rate > 60; Glucose 85 mg/dL (65-110); Lipase 54 U/L (23-300); Potassium 4.1 mmol/L (3.4-5.0); Sodium 135 mmol/L (137-145)
[2024-08-11] MEDS: BELLADONNA ALK/PHENOB ELIX 10 ML, MAG HYDROX/ALUMINUM HYD/SIMETH 30 ML, LIDOCAINE 2% VI... PO (17:33)
--- NOTE | 2024-08-11 18:07 | OBADM ---
This patient, Bel Lee, admitted to the OB room OB Post 113 for observation. Patient/family oriented to hospital policies and general routines including ID bracelet, bed and alarms, visiting hours, pain management, procedures, bathroom and other care routines, personal items, smoking policy, room service/diet, and visiting hours. Patient/Family are encouraged to report perceived risks to care and to ask questions if they do not understand what they are told or what they should do.
--- NOTE | 2024-08-11 18:34 | PC.NURSE ---
Dr. Powell called, update on pt, orders received to call with ultrasound report.
--- NOTE | 2024-08-11 19:05 | PC.NURSE ---
RN at bedside, pt reports burning in upper stomach pain 9 out of 10, no tenderness.
--- NOTE | 2024-08-11 20:00 | PC.NURSE ---
Called Dr. Powell, update on pt, ultrasound, pain in upper stomach, labs, and blood pressure. Orders received to discharge pt with prescription for pepcid 20 mg twice a day, GI referral from Dr. Powell's office, instructions to keep next scheduled appointment, and when to return to the unit.
--- NOTE | 2024-08-11 21:04 | PC.NURSE ---
Pt discharged with prescription for pepcid 20 mg twice a day, Dr. Powell's office to call pt tomorrow for GI referral, instructions to keep next scheduled appointment, and when to return to the unit. Pt verbalizes understanding.
--- NOTE | 2024-09-02 06:32 | PM.OBTRLD ---
OB - Triage/Final Diagnosis Visit Information Comments/Additional reasons for admission: I have assessed the risk for this patient, Bel Lee, and determined that she would benefit from observation care. She was sent for evaluation due to diarrhea and mid epigastric burning. She had not taken any reflux medication. Stomach feels better with broth and light meals. She denied emesis. Denied blood in stools. She had labs, normal LFTs, she had a GI cocktail, did not relieve the mid epigastric tenderness, on exam, no fundal tenderness, abdominal ultrasound performed, findings consistent with third trimester. She was recommend to take pepcid 20mg bid. Will send in GI referral. Continue hydration. Discussed reflux precautions. Evaluation Laboratory results: Laboratory Tests 08/11/24 08/11/24 08/11/24 13:02 13:58 16:46 WBC 16.2 H RBC 3.59 L Hgb 11.2 L Hct 34.6 L MCV 96.4 MCH 31.2 MCHC 32.4 RDW 13.1 Plt Count 270 MPV 9.7 Immature Gran % (Auto) 1.1 H Neut % (Auto) 77.2 H Lymph % (Auto) 16.5 L [place] % (Auto) 4.4 Eos % (Auto) 0.6 Baso % (Auto) 0.2 Lymph # (Auto) 2.67 [place] # (Auto) 0.7 H Eos # (Auto) 0.1 Baso # (Auto) 0.0 Abs Immat Gran (auto) 0.18 H Absolute Neuts (auto) 12.5 H Absolute Nucleated RBC 0.000 Nucleated RBC % 0.0 Sodium 135 L Potassium 4.1 Chloride 102 Carbon Dioxide 24 Anion Gap 9 BUN 6 L Creatinine 0.56 L Estim Creat Clear Calc Not Reportable Estimated GFR > 60 Glucose 85 Calcium 9.1 Total Bilirubin 0.4 AST 13 L ALT 10 Alkaline Phosphatase 100 Total Protein 7.0 Albumin 3.4 L Amylase 65 Lipase 54 Urine Color Yellow Urine Appearance Clear Urine pH 7.5 Ur Specific Steele 1.013 Urine Protein Negative Urine Glucose (UA) Negative Urine Ketones Negative Ur Blood (Man) Negative Urine Nitrate Negative Urine Bilirubin Negative Urine Urobilinogen 0.2 Leukocyte Esterase Rfl Negative Final Diagnosis (1) Gastroesophageal reflux: Code(s): K21.9 - Gastro-esophageal reflux disease without esophagitis Status: Acute
== END 2024-08-11 21:04 | disposition home or self-care (01) ==
PROVIDERS: Admitting Provider Obstetrics & Gynecology; Visit Provider Obstetrics & Gynecology
DX: O99.613 Diseases of the digestive system complicating pregnancy, third trimester (principal); K21.9 Gastro-esophageal reflux disease without esophagitis; Z3A.34 34 weeks gestation of pregnancy
CPT/HCPCS: 36415; 76705; 80053; 81003; 82150; 83690; 85025; A9270; G0378; G0379

== ENCOUNTER 2024-08-18 19:48 | Observation (INO) | payer OTHER, SELFPAY ==
[2024-08-18] VITALS (9 sets, daily range): BP systolic 104–134; BP diastolic 54–89; PULSE 94–108; BMI 43.7
--- NOTE | ~2024-08-18 | US_ITS ---
EXAMINATION: US OB limited DATE: 08/18/2024 21:16 BRADDER INDICATION: MAX request COMPARISON: 04/09/2024 TECHNIQUE: Real-time transabdominal obstetric ultrasound. FINDINGS: 2 para 1 Estimated date of delivery: 09/20/2024 A single intrauterine gestation is identified in vertex position with the placenta anterior. cardiac activity is identified at a rate of 155 bpm. Amniotic fluid level is subjectively normal. MAX: 17.9 (with a normal range of 6.9 x 27.9) Evaluation of the cervix was not on the submitted images IMPRESSION: Single intrauterine gestation with an approximate gestational age of 35 weeks and 2 days. MAX measures 17.9 cm, within normal range. Reviewed, dictated and finalized at location A. DER IMPRESSION: Single intrauterine gestation with an approximate gestational age of 35 weeks a nd 2 days. MAX measures 17.9 cm, within normal range.
--- OUTSIDE RECORDS SUMMARY | 2024-08-18 20:06 | XMS_ITS | Encounter Summary ---
Author Organization [facility] Address 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
--- OUTSIDE RECORDS SUMMARY | 2024-08-18 20:06 | XMS_ITS | Encounter Summary ---
Author Organization [facility] Address 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 LAB ORDERS: Order number: [id number] Test Ordered: HEMOCCULT SINGLE [id number] + PATIENT EDUCATION: Questions were allowed to stated satisfaction. PREVENTIVE COUNSELING The patient was counseled regarding diet. RETURN VISIT : please waive todays co-pay Electronically Signed by: Inge Hutson MD on Wednesday, June 07, 2006 documented in this encounter Plan of Treatment Not on file documented as of this encounter Visit Diagnoses Not on filedocumented in this encounter Care Teams Engineer Internship Relationship Specialty Start Date End Date Soren Mart MD PCP - General 02/10/09 documented as of this encounter
--- OUTSIDE RECORDS SUMMARY | 2024-08-18 20:06 | XMS_ITS | Referral Summary ---
Author Organization [facility] Address [address] [place] [address] Care Team Providers Care Biostatistics Director Name Role Phone Joy Gardner GWEN-BATTERY PLATE REMOVER Primary Care Provider + Source Comments [facility],non-[facility] Affiliates and Associated Physician Practices is amultiple site organization consisting of ambulatory clinics and hospital sitesin [place], [place], [place] and [place]. This disclosure is being madepursuant to the Care Everywhere program and may not contain all information available regarding this patient. Last updated 18.[facility] [employer] Allergies No known active allergies Medications * [...] LURIA, FLUZONE TRIVALENT; 6MO+) (IIV3) 04/13/2016,04/14/2014,05/21/2010 Covid Mocha.cn primary monoval ent 12+ yr 0.3mL Purple [...] Not on file Administered Medications Care Teams Biostatistics Director Relationship Specialty Start Date End Date Joy Gardner APRN-CNP [address] [address] PCP - General 02/13/21
--- OUTSIDE RECORDS SUMMARY | 2024-08-18 20:06 | XMS_ITS | Encounter Summary ---
Author Organization [facility] Address 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 WHO TOOK THE CALL: Amelia Lee R GENERAL INFORMATION ALTERNATIVE PHONE NUMBER: [phone] or work WHO CALLED: Patient`s mother called. CURRENT ALLERGY LIST: NO KNOWN DRUG ALLERGY PHARMACY NUMBER: [phone] PROBLEMS: feeling terrible, chest tight-wheezing sound, did [...] on filedocumented in this encounter Care Teams Manager Books Relationship Specialty Start Date End Date Soren Mart MD PCP - General 02/10/09 documented as of this encounter
--- OUTSIDE RECORDS SUMMARY | 2024-08-18 20:06 | XMS_ITS | Patient Health Summary ---
Author Organization [facility] Address [address] [place] [address] Care Team Providers Care Quiller Operator Name Role Phone Joy Gardner GWEN-FOOD ANALYST Primary Care Provider + Note from [facility],non-owned Affiliates and Associated Physician Practices is amultiple site organization consisting of ambulatory clinics and hospital sitesin [place], [place], [place] and [place]. This disclosure is being madepursuant to the Care Everywhere program and may not contain all information available regarding this patient. Last updated 18.[facility] Allergies No known active allergies Medications * [...] 39.36 03/08/2021 1:33 PM CDT Procedures * [place] MULTIPLE SLEEP LATENCY TEST(Performed 02/23/2021) Performed for Daytime hypersomnia, Obesity (BMI 30-39.9), Excessive daytime sleepiness, Chronic fatigue, Chronic insomnia, Inadequate sleep hygiene * MN POLYSOM 6/> YRS 4/> GOKUL(Performed 02/22/2021) Performed [...] sleepiness, Chronic fatigue, Chronic insomnia Results * [place] MULTIPLE SLEEP LATENCY TEST (02/23/2021 11:28 AM CDT) Bert Narvaez MD - 02/23/2021 11:28 AM CDT Bert Graham MD 02/23/2021 11:32 AM Evy OLMEDO PROCEDUR E/MINOR SURGICAL ORDERABLES * MN POLYSOM 6/> YRS 4/> GOKUL (02/22/2021 12:48 PM CDT) Bert Narvaez MD - 02/22/2021 12:48 PM CDT Bert Graham MD 02/22/2021 12:50 PM [facility] Accredited by the [place] [employer] Medicine [facility], First Floor [address] [place] [address]. [place] [address] Telephone : [phone] Medical Records Patient Name: Bel Lee : 1990 Date of Study: 02/20/2021 Referring Physician: NA Holm Type of Montage: Respiratory Scoring System: [facility] FULL NIGHT DIAGNOSTIC POLYSOMNOGRAM INTERPRETATION (02/20/2021) Procedure: The polysomnogram was performed with a orthopaedic technologist in attendance. Central, occipital, and temporal [...] oral appliance device trial Bert Graham MD, [facility], [facility], [facility] Trim Mechanic, [facility] Professor of Internal Medicine Adjunct Manager Community Relations of Neurology Division of Pulmonary, Critical Care, and Sleep Medicine [facility] This note was electronically signed on [...] 154 ng/mL [facility] Comment: Test Performed at: [facility] [address] [place] [address] ZURDO COMBS DO,MPH Blood BLOOD SPECIMEN / Unknown 02/20/2021 3:15 PM CDT 02/20/2021 3:16 PM CDT Evy OLMEDO LAB - CH EMISTRY ORDERABLES [facility] [address] [place] [address] * METHYLMALONIC ACID BLOOD (02/20/2021 3:15 PM CDT) Methylmalonic Acid 205 87 - 318 nmol/L [facility] Comment: This test was developed and its analytical performance characteristics have been determined by [facility] [place], [place]. It has not been cleared or approved by the U.S. Food and Drug Administration. This assay has been validated pursuant to the CLIA regulations and is used for clinical purposes. Test Performed at: [facility] [id number] [place] [address] LUCINDA LAU MD,PHD Blood BLOOD SPECIMEN / Unknown 02/20/2021 3:15 PM CDT 02/20/2021 3:16 PM CDT Evy Perez APNP-FOOD ANALYST LAB - CH EMISTRY ORDERABLES [facility] [address] [place] [address] * VITAMIN D 25-HYDROXY (02/20/2021 3:15 PM [...] D, (D2,D3), LC/MS/MS is recommended: order code [id number] (patients >2yrs). See Note 1 Note 1 For additional information, please refer to [email or web address] (This link is being provided for informational/ educational purposes only.) REPORT COMMENT: FASTING:NO Test Performed at: [facility] [address] [place] [address] ZURDO COMBS DO,MPH Blood BLOOD SPECIMEN / Unknown 02/20/2021 3:15 PM CDT 02/20/2021 3:16 PM CDT Evy Ramone Chris [facility] LAB - CH EMISTRY ORDERABLES Performing Organization Address [facility] de Phone Number [facility] [address] [place] [address] * (ABNORMAL) CBC W/O DIFFERENTIAL (02/20/2021 3:15 PM CDT) Pathologist [facility] White Blood Cell Count 9.4 3.8 - [...] 12.5 fL [facility] Comment: Test Performed at: [facility] [address] ZURDO COMBS DO,MPH Blood BLOOD SPECIMEN / Unknown 02/20/2021 3:15 PM CDT 02/20/2021 3:16 PM CDT Evy Ramone Chris [facility] LAB - HE MATOLOGY ORDERABLES Performing Organization Address [facility] de Phone Number [facility] [address] [place] [address] * BASIC METABOLIC PANEL (CALCIUM TOTAL) (02/20/2021 3:15 PM CDT) [facility] [address] Glucose 90 65 - 139 mg/dL [facility] [...] 10.2 mg/dL [facility] Comment: Test Performed at: [facility] [address] ZURDO COMBS DO,MPH Blood BLOOD SPECIMEN / Unknown 02/20/2021 3:15 PM CDT 02/20/2021 3:16 PM CDT Evy A [facility] LAB - CH EMISTRY ORDERABLES Performing Organization Address [facility] Co de Phone Number [facility] [id number] [place] [address] * FOLATE (02/20/2021 3:15 PM CDT) Pathologist [facility] Folate 12.4 ng/mL [facility] Comment: Reference Range Low: <3.4 Borderline: 3.4-5.4 Normal: >5.4 Test Performed at: [facility] [place] [address] ZURDO COMBS DO,MPH Blood BLOOD SPECIMEN / Unknown 02/20/2021 3:15 PM CDT 02/20/2021 3:16 PM CDT Evy A [facility] LAB - EMISTRY ORDERABLES Performing Organization Address [facility] de Phone Number [facility] [id number] [place], [place] [id number] * VITAMIN B12 (02/20/2021 3:15 PM CDT) [...] pg/mL will have symptoms. Test Performed at: [facility] [employer] [facility] [place] [address] ZURDO COMBS DO,MPH Blood BLOOD SPECIMEN / Unknown 02/20/2021 3:15 PM CDT 02/20/2021 3:16 PM CDT Evy A Chris APYEIMY-FOOD ANALYST LAB - CH EMISTRY ORDERABLES Performing Organization Address [facility] Co de Phone Number [facility] [address] [place] [address] * TSH (02/20/2021 3:15 PM CDT) TSH 1.92 mIU/L [facility] Comment: Reference Range > or = 20 Years 0.40-4.50 Ranges First trimester 0.26-2.66 Second trimester 0.55-2.73 Third trimester 0.43-2.91 Test Performed at: [facility] [address] [place] [address] ZURDO COMBS DO,MPH Blood BLOOD SPECIMEN / Unknown 02/20/2021 3:15 PM CDT 02/20/2021 3:16 PM CDT Evy A Chris AP-FOOD ANALYST LAB - CH EMISTRY ORDERABLES Performing Organization Address City/[facility] Co de Phone Number [facility] [address] [place] [address] Care Teams Quiller Operator Relationship Specialty Start Date End Date Joy Gardner APRN-CNP [address] [address] PCP - General 02/13/21
--- OUTSIDE RECORDS SUMMARY | 2024-08-18 20:06 | XMS_ITS | Clinical Summary ---
Author Organization [facility] Address [address] [place] [address] Care Team Providers Care Rn Geriatric Name Role Phone Joy Gardner GWEN-ALL AROUND GEAR MACHINE OPERATOR Primary Care Provider + Source Comments [facility],non-owned Affiliates and Associated Physician Practices is amultiple site organization consisting of ambulatory clinics and hospital sitesin [place], [place] and [place]. This disclosure is being madepursuant to the Care Everywhere program and may not contain all information available regarding this patient. Last updated 18.[facility] [employer] Allergies No known active allergies Medications * [...] LURIA, FLUZONE TRIVALENT; 6MO+) (IIV3) 04/13/2016,04/14/2014,05/21/2010 Covid Flowity primary monoval ent 12+ yr 0.3mL Purple [...] age to complete this topic Care Teams Rn Geriatric Relationship Specialty Start Date End Date Joy Gardner APRN-CNP [address] [address] PCP - General 02/13/21
--- OUTSIDE RECORDS SUMMARY | 2024-08-18 20:06 | XMS_ITS | Encounter Summary ---
Author Organization [facility] Address 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
--- OUTSIDE RECORDS SUMMARY | 2024-08-18 20:06 | XMS_ITS | Continuity of Care Document ---
Author Organization [facility] Address [address] [place] [address] Phone Care Team Providers Care Fuel Cell Designer Name Role Phone Maia Horner Unavailable Unavailable Advance Directives Directive Yes / No Effective Date File Name No Information Encounters Encounter Description Practice Location Reason(s) For Visit Diagnoses Date Provider Providers Copied on Encounter [facility], [address] [place] [address] [address], [place], [place], [id number], [place] tel:[phone] [facility] [place] No Information May-0 9-200 0 Siri Carvalho. [address] , [address], [place], [address], [place]. tel:[phone] Family History Family Member Type Diagnosis Age [...]
--- OUTSIDE RECORDS SUMMARY | 2024-08-18 20:06 | XMS_ITS | Encounter Summary ---
Author Organization [facility] Address 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 Gender Identity Not on file Sexual Orientation [...] HEMATOLOGY ORDERABLES Ed ited Performing Organization Address City/State/[facility] Co de Phone Number INTERFACE SYSTEM [...] HEMATOLOGY ORDERABLES Ed ited Performing Organization Address [facility] Phone Number INTERFACE SYSTEM Refer to clinic/hospital department * HEMOGLOBIN A1C (12/27/2006 12:31 PM CDT) HEMOGLOBIN A1C 5.4 4.1 - 6.1 % of Hgb INTERFACE SYSTEM GLUCOSE, MEAN BLOOD 115 mg/dL INTERFACE SYSTEM 12/27/2006 12:3 1 PM CDT us Inge Hutson MD CHEMISTRY ORDERABLES Darrel juan Performing Organization Address [facility] Phone Number INTERFACE SYSTEM Refer to clinic/hospital department * TSH (12/27/2006 12:31 PM CDT) TSH 1.50 0.27 - 4.20 uU/mL INTERFACE SYSTEM 12/27/2006 12:3 1 PM CDT us Inge Hutson MD CHEMISTRY ORDERABLES Darrel juan Performing Organization Address [facility] Phone Number INTERFACE SYSTEM Refer to [...] CHEMISTRY ORDERABLES Darrel juan Performing Organization Address [facility] Phone Number INTERFACE SYSTEM Refer to clinic/hospital department * FERRITIN (12/27/2006 12:31 PM CDT) FERRITIN 39 13 - 150 ng/mL INTERFACE SYSTEM 12/27/2006 12:3 1 PM CDT us Inge Hutson MD CHEMISTRY ORDERABLES Darrel juan Performing Organization Address City/[facility] Co de Phone Number INTERFACE SYSTEM [...] available on the [facility] Intranet at: [email or web address] Select: Lab Policies and Procedures Select: Reference Ranges - GFR 12/27/2006 12:3 1 PM CDT Inge Hutson MD CHEMISTRY ORDERABLES Darrel juan Performing Organization Address City/[facility] Co de Phone Number INTERFACE SYSTEM Refer to clinic/hospital department documented in this encounter Visit Diagnoses Diagnosis Disturbance of skin sensation- Primary documented in this encounter Care Teams Hogshead Builder Relationship Specialty Start Date End Date Soren Mart MD PCP - General 02/10/09 documented as of this encounter
--- OUTSIDE RECORDS SUMMARY | 2024-08-18 20:06 | XMS_ITS | Encounter Summary ---
Author Organization [facility] Address 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
--- OUTSIDE RECORDS SUMMARY | 2024-08-18 20:06 | XMS_ITS | Encounter Summary ---
Author Organization [facility] Address [address] [place] [address] Care Team Providers Care Accounting Intern Name Role Phone Soren Mart MD Primary Care Provider [phone] Encounter Details Date Type Department Care Team (Latest Contact Info) Description 06/05/2006 Outpatient Historical [facility] David Guillermo MD NO ADDRESS ON FILE Chronic Tonsillitis (Primary Dx) Social History Tobacco Use Types Packs/Day Years Used Date Smoking Tobacco: Never Assessed Comments Unknown Sex and Gender Information Value Date Recorded Sex Assigned at Not on file Legal Sex Female 3:43 AM [employer] Gender Identity Not on file Sexual Orientation Not on file documented as of this encounter Plan of Treatment Not on file documented as of this encounter Procedures Procedure Name Priority Date/Time Associated Diagnosis Comments POC , URINE Routine 06/05/2006 9:20 AM [employer] HEMOGLOBIN AND HEMATOCRIT Routine 06/05/2006 9:11 AM [employer] documented in this encounter Results * POC , URINE (06/05/2006 9:20 AM [employer]) , URINE POC Negative Negative INTERFACE SYSTEM 06/05/2006 9:20 AM [employer] us David Guillermo MD POINT OF CARE TESTING Final Result INTERFACE SYSTEM Refer to clinic/hospital department * HEMOGLOBIN AND HEMATOCRIT (06/05/2006 9:11 AM [employer]) HEMOGLOBIN 13.3 11.8 - 14.8 g/dL INTERFACE SYSTEM HEMATOCRIT 39.0 35.5 - 44.0 % INTERFACE SYSTEM 06/05/2006 9:11 AM [employer] us David Guillermo MD HEMATOLOGY ORDERABLES Final Result INTERFACE SYSTEM Refer to clinic/hospital department documented in this encounter Visit Diagnoses Diagnosis Chronic tonsillitis- Primary documented in this encounter Care Teams Accounting Intern Relationship Specialty Start Date End Date Soren Mart MD PCP - General 02/10/09 documented as of this encounter
--- OUTSIDE RECORDS SUMMARY | 2024-08-18 20:06 | XMS_ITS | Clinical Summary ---
Author Organization [facility] Address [address] [place] [address] Care Team Providers Care Collar Cutter Name Role Phone Sorne Mart MD Primary Care Provider [phone] Allergies No known active allergies Medications ondansetron (ZOFRAN ODT) 4 mg Tablet, Rapid DissolveIndication s:Nausea Place 1 tab on top of tongue and let dissolve every 8 hours prn nausea.. 32 Tablet 3 7 Active mometasone-formote rol (DULERA) 100-5 mcg/actuation inhaler LOT:[id number] EX:11/2017 QTY:1 BOX. 1 Gram 7 Active [...] Encounters Date Type Department Care Team Description 08/18/2024 External Device Data STL ABSTRACTION Provider, Abstract 08/05/2024 9:07 AM CHIEF NURSE EXECUTIVE - 08/05/2024 11:59 PM [facility] Hospital Encounter [facility] Maternal and Health [facility] [address] [place] [address] Jaydon Chase MD Discharge Disposition: Home or [...] External Device Data STL ABSTRACTION Provider, Abstract from Last 3 Months Immunizations Immunization Administration [...] on file Legal Sex Female 3:43 AM CHIEF NURSE EXECUTIVE Gender Identity Not on file Sexual Orientation [...] 113.4 kg (250 lb) 07/12/2020 4:03 PM CHIEF NURSE EXECUTIVE Height 162.6 cm (5' 4 ) 07/12/2020 4:03 PM CHIEF NURSE EXECUTIVE Body Mass Index 42.91 07/12/2020 4:03 PM CHIEF NURSE EXECUTIVE Plan of Treatment Health Maintenance Due Date [...] UP PER FETUS Routine 08/05/2024 9:53 AM CHIEF NURSE EXECUTIVE Encounter for ultrasound to assess growth Obesity during , antepartum CERV/VAG CYTO SCREEN PAP RLFX HPV Routine 11/02/2015 12:00 AM CDT from Last 3 Months or Most Recently Relevant to Health Maintenance Results * US OB FOLLOW UP PER FETUS (08/05/2024 9:53 AM CHIEF NURSE EXECUTIVE) Anatomical Region Laterality Modality Pelvis Ultrasound 08/05/2024 9:32 AM CHIEF NURSE EXECUTIVE Narrative 08/05/2024 9:57 AM CHIEF NURSE EXECUTIVE STL FOLLOW UP ----- Pat. Name: ANNI BRYANT Study Date: 08/05/2024 9:32am Pat. NO: [id number] Referring MD: JAYDON CHASE MD Site: [place] [employer] Manager: Bri Toledo RDMS : 1990 Age: 34 [...] Weeks of gestation O99.213: Obesity complicating Procedures 33567: Ultrasound, uterus, real time with image documentation, [...] 5 lb 8 oz EFW by Hadlock ([id number]) Head / Face / Neck Biometry: Retirement Plan Specialist 5.3 mm Extremities / Bony Struc Biometry: [...] and date of were verified by the oven baker prior to the exam IMPRESSION ----- 1. [...] Pat. Name:Eladia BRYANT Date:08/05/2024 9:32am Pat. NO: [id number] MD:JAYDON CHASE [facility]ri Toledo RDMS :1990Age:34 ----- INDICATION ----- Maternal Care for Low Transverse Scar from Previous Delivery (Previous ) Maternal Obesity (BMI<40) Complicating Screening, Other Specified CODING ----- Diagnoses Z3A.33: Weeks of gestation Z36.89: Encounter to establish gestational ageusing ultrasound O99.213: Obesity complicating O34.211: Maternal care for low transverse scarfrom previous delivery Z36.3: Encounter for screening formalformations Z3A.33: Weeks of gestation O99.213: Obesity complicating Procedures 42076: Ultrasound, uterus, real time withimage documentation, follow up, transabdominal approach per fetus HISTORY ----- OB History 2. Para 1 T1L1 MATERNAL ASSESSMENT ----- Physical Exam Initial weight 95 kg, 210 lb. Initial BMI 37.20kg/m METHOD ----- Transabdominal ultrasound examination ----- Holt . Number of fetuses: 1 DATING ----- GA by prior [id number] w + 3 d ANA by prior [...] 5 lb 8 oz EFW by Hadlock ([id number]) Head / Face / Neck Biometry: Retirement Plan Specialist 5.3mm Extremities / Bony Struc Biometry: FL [...] and date of were verified by the oven baker prior tothe exam IMPRESSION ----- 1. Single [...] participate in the care of this patient. Jaydon Chase MD ORDERABLES Final Result * CERV/VAG CYTOPATH, THIN PREP IMAGR RFLX HPV (CP) (11/02/2015 12:00 AM CDT) CLINICAL INFORMATION [facility] Comment: Routine exam WELL WOMAN EXAM LAST MENSTRUAL PERIOD [facility] Comment:10/05/15 PREV PAP: [facility] [employer] [facility] Comment:Information not prov ided PREV BX: [facility] [employer] [facility] Comment:Information not prov ided SOURCE [facility] Comment:[employer] ADEQUACY: [facility] [employer] [facility] Comment: Satisfactory for evaluation. Endocervical/transformation zone component present. INTERPRETATION [facility] Comment:Negative for intraep ithelial lesion or malignancy. CYTOLOGY INFECTION Q [employer] [facility] Comment: Shift in vaginal maureen suggestive of bacterial vaginosis. COMMENT [facility] [employer] [facility] Comment: This Pap test has been evaluated with computer assisted technology. KINDERGARTNER: [employer] [facility] Comment: PAKOO CT(ASCP) CT screening location: [place] [address] [place] [address] Test Performed at: [facility] [address] [place] [address] DEBBIE CHOPRA MD 11/02/2015 Delphine Lua EXPANSION JOINT BUILDER PATHOLOGY/CYTOLOGY ORDERABLES F inal Result [facility] [address] [place] [address] from Last 3 Months or Most Recently Relevant to Health Maintenance Insurance Advance Directives For more information, please contact: [phone] * Full Code (Latest Code Status on File) Date Activated Date Inactivated Comments 12/21/2013 9:08 PM 12/22/2013 6:32 PM Care Teams Collar Cutter Relationship Specialty Start Date End Date Soren Mart MD PCP - General 02/10/09
--- OUTSIDE RECORDS SUMMARY | 2024-08-18 20:07 | XMS_ITS | Encounter Summary ---
Author Organization [employer] Address [address] [place] [address] Care Team Providers Care Appliance Service Representative Name Role Phone Soren Mart MD Primary Care Provider [phone] Encounter Details Date Type Department Care Team (Late st Contact Info) Description 02/04/2008 Outpatient Historical [facility] Er, Authorized P NO ADDRESS ON FILE Ingrid Giang NP [address] [facility] [address] [place] [address] Social History Tobacco Use Types Packs/Day Years Used Date Smoking Tobacco: Never Assessed Comments Unknown Sex and Gender Information Value Date Recorded Sex Assigned at Not on file Legal Sex Female 3:43 AM BLOCKERS SKIVER Gender Identity Not on file Sexual Orientation [...] PM CDT Narrative 02/04/2008 1:46 PM CDT [place] [address] [place], [place] [address] Admit Date: 02/04/2008 ANNI BRYANT Sex: F Admit Prov: IZA STEVENS Date: 1990 Primary Care Prov: CMRN: [id number] Room: [facility] SSN: [id number] IMAGING SERVICES Ordering Prov: N/A Accession Number: [id number] Interpretation Sinuses complete 4 views 02/04/2008 History: Headache. Findings: The paranasal sinuses are clear. The orbits are intact. The soft tissues are unremarkable. Impression: Unremarkable study. . Dictated by: VANDANA MCCRARY 02/04/2008 13:43 Electronically signed by: VANDANA MCCRARY 02/04/2008 13:44 Procedure Note Vandana Mccrary - 02/04/2008 [facility] [address] [place], [place] [address] Admit Date: 02/04/2008 ANNI BRYANT Sex: F Admit Prov: ER, AUTHORIZED P Date: 1990 Primary Care Prov: CMRN: [id number] [facility] [id number] IMAGING SERVICES Ordering Prov: N/A Interpretation Sinuses complete 4 views 02/04/2008 History: Headache. Findings: The paranasal sinuses are clear. The orbits are intact. Thesoft tissues are unremarkable. Impression: Unremarkable study. . Dictated by: VANDANA MCCRARY 02/04/2008 13:43 Electronically signed by: VANDANA MCCRARY 02/04/2008 13:44 Ingrid Giang NP DIAGNOSTIC IMAGING ORDERABLES Final Result * URINALYSIS (02/04/2008 1:15 PM CDT) KETONES UA Negative Negative [facility] CLARITY UA Clear Clear [facility] BILIRUBIN UA Negative Negative [facility] PROTEIN UA Negative Negative [facility] LEUKOCYTE ESTERASE UA Negative Negative [facility] SPECIFIC GRAVITY UA 1.005 1.001 - 1.035 [facility] GLUCOSE UA Negative Negative [facility] BLOOD UA Negative Negative [facility] COLOR UA Pale Yellow [facility] NITRITE UA Negative Negative [facility] UROBILINOGEN UA <1 <=1 mg/dL [facility] PH UA 7.0 5.0 - 8.0 [facility] 02/04/2008 1:15 PM CDT 02/04/2008 1:17 PM CDT Ingrid Giang NP URINE ORDERABLES Final Result INTERFACE SYSTEM Refer to clinic/hospital department [facility] CLIA# [id number] [address] [place] [address] * URINALYSIS WITH REFLEX CULTURE (02/04/2008 1:15 PM CDT) [facility] URINE CULTURE ORDER Not indicated [facility] Comment: Criteria for a reflex culture include one or more of the following: Abnormal nitrite, leukocyte esterase, WBCs or RBCs. Lack of qualifying criteria does not exclude the possiblity of a urinary tract infection. Dilute urine, drug interference, etc. may decrease the sensitivity of the criteria analytes. Urine specimen (specimen) 02/04/2008 1:15 PM CDT 02/04/2008 1:17 PM CDT Ingrid Giang STORE MANAGEMENT TRAINEE URINE ORDERABLES Final Result Performing Organization Address [facility] de Phone Number INTERFACE SYSTEM Refer to clinic/hospital department [facility] CLIA# [id number] [address] [place] [address] * POC , URINE (02/04/2008 1:11 PM CDT) [facility] , URINE POC Negative Negative [facility] SPECIFIC GRAVITY UA 1.010 1.001 - 1.035 [facility] Urine specimen (specimen) 02/04/2008 1:11 PM CDT 02/04/2008 1:11 PM CDT us Authorized P Er POINT OF CARE TESTING Final Resu lt Performing Organization Address [facility] de Phone Number INTERFACE SYSTEM Refer to clinic/hospital department [facility] CLIA# [id number] [address] [place] [address] * POC URINALYSIS DIPSTICK (02/04/2008 1:09 PM CDT) [facility] CLARITY UA Clear [facility] PROTEIN UA Negative Negative [facility] BLOOD UA Negative Negative [facility] LEUKOCYTE ESTERASE UA Negative Negative [facility] UROBILINOGEN UA Normal <=1 mg/dL [facility] SPECIFIC GRAVITY UA 1.010 1.001 - 1.030 [facility] GLUCOSE UA Negative Negative [facility] COLOR UA Pale [facility] BILIRUBIN UA Negative Negative [facility] NITRITE UA Negative Negative [facility] PH UA 7.0 5.0 - 8.0 [facility] KETONES UA Negative Negative [facility] COMMENT, URINE Test not chrgd/to repeat [facility] Urine specimen (specimen) 02/04/2008 1:09 PM CDT 02/04/2008 1:09 PM CDT us Authorized P Er POINT OF CARE TESTING Edited INTERFACE SYSTEM Refer to clinic/hospital department [facility] CLIA# [id number] [address] [place] [address] * (ABNORMAL) CBC WITH DIFFERENTIAL (02/04/2008 11:50 AM CDT) WBC 10.4(H) 4.0 - 9.8 K/uL [facility] MCH 30.4 27.2 - 32.6 pg [facility] MPV 10.3 9.3 - 12.4 fL [facility] HEMATOCRIT 37.5 35.5 - 44.0 % [facility] RDW-STDEV 42.9 37.1 - 48.7 fL [facility] RBC 4.08 3.90 - 4.90 M/uL [facility] MCHC 33.1 31.5 - 35.5 % [facility] MCV 91.9 82.0 - 99.0 fL [facility] PLATELETS 224 140 - 350 K/uL [facility] HEMOGLOBIN 12.4 11.8 - 14.8 g/dL [facility] RDW 12.7 11.5 - 14.5 % [facility] PLATELET EST. Consistent w/ count Normal [facility] LYMPHOCYTES 11(L) 16 - 45 % [facility] BASOPHILS ABSOLUTE 0.00 0.00 - 0.20 K/uL [facility] BASOPHILS 0 0 - 2 % [facility] MONOCYTE ABSOLUTE 0.31 0.10 - 1.30 K/uL [facility] MONOCYTES 3 3 - 13 % [facility] RBC MORPHOLOGY Normal Normal [facility] NEUTROPHIL ABSOLUTE 8.84(H) 1.90 - 7.00 K/uL [facility] NEUTROPHILS, SEG 85(H) 45 - 70 % [facility] ATYPICAL LYMPHOCYTE 1 0 - 5 % [facility] EOSINOPHIL ABSOLUTE 0.00 0.00 - 0.70 K/uL [facility] REVIEWED ON SMEAR Plt OK by Smear Rev. [facility] EOSINOPHILS 0 0 - 7 % [facility] LYMPHOCYTE ABSOLUTE 1.25 0.70 - 4.50 K/uL [facility] Blood specimen (specimen) 02/04/2008 11:50 AM CDT 02/04/2008 11:55 AM CDT us Ingrid Giang NP HEMATOLOGY ORDERABLES Edited INTERFACE SYSTEM Refer to clinic/hospital department [facility] CLIA# [id number] [address] [facility] [place] [address] * MONONUCLEOSIS SCREEN (02/04/2008 11:50 AM CDT) MONONUCLEOSIS SCREEN Negative Negative [facility] Blood specimen (specimen) 02/04/2008 11:50 AM CDT 02/04/2008 11:55 AM CDT Ingrid Giang NP HEMATOLOGY ORDERABLES Final R esult Performing Organization Address [facility] de Phone Number INTERFACE SYSTEM Refer to clinic/hospital department [facility] CLIA# [id number] [address] [place] [address] * C-REACTIVE PROTEIN (02/04/2008 11:50 AM CDT) Pathologist [facility] CRP 0.2 0.0 - 0.8 mg/dL [facility] Blood specimen (specimen) 02/04/2008 11:50 AM CDT 02/04/2008 11:55 AM CDT Ingrid Giang NP CHEMISTRY ORDERABLES Final Re sult Performing Organization Address [facility] de Phone Number INTERFACE SYSTEM Refer to clinic/hospital department [facility] CLIA# [id number] [address] [place] [address] * COMPREHENSIVE METABOLIC PANEL (02/04/2008 11:50 AM CDT) ALKALINE PHOSPHATASE 65 35 - 187 U/L [facility] BILIRUBIN TOTAL 0.4 0.2 - 1.0 mg/dL [facility] CO2 23 22 - 30 mmol/L [facility] TOTAL PROTEIN 7.1 6.3 - 8.6 g/dL [facility] POTASSIUM 3.9 3.5 - 4.9 mmol/L [facility] GLUCOSE 101 60 - 110 mg/dL [facility] AST 16 12 - 32 U/L [facility] BUN 10 6 - 20 mg/dL [facility] CALCIUM 9.0 8.4 - 10.2 mg/dL [facility] Comment:Note new reference r percy effective 01/14/08 CHLORIDE 103 96 - 108 mmol/L [facility] ALBUMIN 4.4 3.2 - 4.5 g/dL [facility] CREATININE 0.64 0.51 - 0.95 mg/dL [facility] SODIUM 135 135 - 145 mmol/L [facility] ALT 14 0 - 31 U/L [facility] GFR, N/A:MDRD equation validated for pts. >18 yrs. >=60 mL/min/1 .7 sq meter [facility] GFR N/A:MDRD equation validated for pts. >18 yrs. >=60 mL/min/1 .7 sq meter [facility] Comment: Modification of Diet in Renal Disease (MDRD) study formula. Estimated GFR rate interpretative information for both Americans and non- Americans is available on the [facility] Intranet at: [email or web address] Select: Lab Policies and Procedures Select: Reference Ranges - GFR Blood specimen (specimen) 02/04/2008 11:50 AM CDT 02/04/2008 11:55 AM CDT Ingrid Giang STORE MANAGEMENT TRAINEE CHEMISTRY ORDERABLES Edited INTERFACE SYSTEM Refer to clinic/hospital department [facility] CLIA# [id number] [address] [place] [address] documented in this encounter Visit Diagnoses Not on filedocumented in this encounter Care Teams Appliance Service Representative Relationship Specialty Start Date End Date Soren Mart MD PCP - General 02/10/09 documented as of this encounter
--- OUTSIDE RECORDS SUMMARY | 2024-08-18 20:07 | XMS_ITS | Encounter Summary ---
Author Organization [facility] Address [address] [place] [address] Care Team Providers Care Oyster Culler Name Role Phone Soren Mart MD Primary Care Provider Encounter Details Date Type Department Care Team (Late st Contact Info) Description 10/30/2005 Outpatient Historical [facility] Internal Medicine [address] [address] Inge Hutson MD NO ADDRESS ON FILE Social History Tobacco Use Types Packs/Day Years Used Date Smoking Tobacco: Never Assessed Comments Unknown Sex and Gender Information Value Date Recorded Sex Assigned at Not on file Legal Sex Female 3:43 AM FILENET P8 DEVELOPER Gender Identity Not on file Sexual [...] 3:0 0 PM CDT Growth Chart: [facility] (Girls, 2- 20 Years) documented in this encounter Plan of Treatment Not on file documented as of this encounter Visit Diagnoses Not on filedocumented in this encounter Care Teams Oyster Culler Relationship Specialty Start Date End Date Soren Mart MD PCP - General 02/10/09 documented as of this encounter
--- OUTSIDE RECORDS SUMMARY | 2024-08-18 20:07 | XMS_ITS | Encounter Summary ---
Author Organization [facility] Address [address] [place] [address] Care Team Providers Care Athletic Shoe Designer Name Role Phone Soren Mart MD Primary Care Provider [phone] Encounter Details Date Type Department Care Team (Late st Contact Info) Description 08/24/2007 Outpatient Historical [facility] Internal Medicine [address] [address] Soren Mart MD [address] [place] [address] Social History Tobacco Use Types Packs/Day Years Used Date Smoking Tobacco: Never Assessed Comments Unknown Sex and Gender Information Value Date Recorded Sex Assigned at Not on file Legal Sex Female 3:43 AM GALLERY OR MUSEUM TECHNICIAN Gender Identity Not on file Sexual Orientation Not on file documented as of this encounter Plan of Treatment Not on file documented as of this encounter Visit Diagnoses Not on filedocumented in this encounter Care Teams Athletic Shoe Designer Relationship Specialty Start Date End Date Soren Mart MD PCP - General 02/10/09 documented as of this encounter
--- OUTSIDE RECORDS SUMMARY | 2024-08-18 20:07 | XMS_ITS | Encounter Summary ---
Author Organization [employer] Address [address] [place] [address] Care Team Providers Care Chemical Unit Operator Name Role Phone Soren Mart MD Primary Care Provider [phone] Encounter Details Date Type Department Care Team (Latest Contact Info) Description 04/27/2008 Outpatient Historical [facility], MAIN PA Conversion, History Urinary Tract Infection, Site not Specified Social History Tobacco Use Types Packs/Day Years Used Date Smoking Tobacco: Never Assessed Comments Unknown Sex and Gender Information Value Date Recorded Sex Assigned at Not on file Legal Sex Female 3:43 AM EXECUTIVE ADMIN Gender Identity Not on file Sexual Orientation Not on file documented as of this encounter Plan of Treatment Not on file documented as of this encounter Procedures Procedure Name Priority Date/Time Associated Diagnosis Comments CHLAMYDIA/N. GONORRHOEAE, DNA Routine 04/27/2008 7:34 PM EXECUTIVE ADMIN URINE CULTURE Routine 04/27/2008 7:34 PM EXECUTIVE ADMIN documented in this encounter Results * URINE CULTURE (04/27/2008 7:34 PM EXECUTIVE ADMIN) FINAL REPORT 50-100,000 colonies/mL Escherichia coli <10,000 colonies/mL Streptococcus Group B -NOTE: In women, recovery of Group B Streptococcus may be significant. However, in non- women, recovery in small quantities suggests contamination with blue urethral maureen. Normal urethral maureen also present. - Phoned report (with read back verified) to [facility] () 04/29/08 10:43:23 -- Faxed report(s): [phone] [facility] SUSCEPTIBILITY PERFORMED ON ESCHERICHIA COLI [facility] 04/27/2008 7:34 PM EXECUTIVE ADMIN 04/27/2008 8:27 PM EXECUTIVE ADMIN Narrative Organism Antibiotic Method Susceptibility Escherichia coli [...] ORDERA BLES Final Result Performing Organization Address City/[facility]/ZIP Co de Phone Number INTERFACE SYSTEM Refer to clinic/hospital department [facility] CLIA# [id number] [address] [place] [address] * CHLAMYDIA/N. GONORRHOEAE, DNA (04/27/2008 7:34 PM EXECUTIVE ADMIN) CHLAMYDIA TRACHOMATIS DNA NOT DETECTED NOT DETECTED [facility] NEISSERIA GONORRHOEAE DNA NOT DETECTED NOT DETECTED [facility] Comment: Lab test performed by: [facility] [address] [address] ZURDO FIGUEROA MD Specimen of unknown material (specimen) URINE SPECIMEN / Unknown 04/27/2008 7:34 PM EXECUTIVE ADMIN 04/27/2008 8:08 PM EXECUTIVE ADMIN us History Conversion BODY FLUIDS AND STOOLS Final Result Performing Organization Address City/[facility]/ZIP Co de Phone Number INTERFACE SYSTEM Refer to clinic/hospital department [facility] CLIA# [id number] [address] [place] [address] documented in this encounter Visit Diagnoses Diagnosis Urinary tract infection, site not specified documented in this encounter Care Teams Chemical Unit Operator Relationship Specialty Start Date End Date Soren Mart MD PCP - General 02/10/09 documented as of this encounter
--- OUTSIDE RECORDS SUMMARY | 2024-08-18 20:07 | XMS_ITS | Encounter Summary ---
Author Organization [employer] [facility] Address [address] [place] [address] Care Team Providers Care Baseball Inspector And Repairer Name Role Phone Soren Mart MD Primary Care Provider Encounter Details Date Type Department Care Team (Late st Contact Info) Description 02/27/2012 Chart Note [facility] [address] [facility] [address] [place] [address] Radha Mcallister, Physical Therapist Social History Tobacco Use Types Packs/Day Years Used Date Smoking Tobacco: Never Smokeless Tobacco: Never Alcohol Use Standard Drinks/Week Comments No 0 (1 standard drink = 0.6 oz pur e alcohol) Comments No Sex and Gender Information Value Date Recorded Sex Assigned at Not on file Legal Sex Female 3:43 AM COMPLIANCE TESTER Gender Identity Not on file Sexual [...] you for this referral. Radha Mcallister [facility] [address] [place] [address]. [address] [place] [address] documented in this encounter Plan of Treatment Not on file documented as of this encounter Visit Diagnoses Not on filedocumented in this encounter Care Teams Baseball Inspector And Repairer Relationship Specialty Start Date End Date Soren Mart MD PCP - General 02/10/09 documented as of this encounter
--- OUTSIDE RECORDS SUMMARY | 2024-08-18 20:07 | XMS_ITS | Encounter Summary ---
Author Organization [employer] Address [address] [place] [address] Care Team Providers Care Fiberglass Boat Parts Finisher Name Role Phone Soren Mart MD Primary Care Provider [phone] Encounter Details Date Type Department Care Team (Latest Contact Info) Description 03/14/2005 Outpatient Historical HIS CARDIOPULMONARY Conversion, History CHEST PAIN NEC (Primary Dx) Social History Tobacco Use Types Packs/Day Years Used Date Smoking Tobacco: Never Assessed Comments Unknown Sex and Gender Information Value Date Recorded Sex Assigned at Not on file Legal Sex Female 3:43 AM GANG PUSHER Gender Identity Not on file Sexual Orientation Not on file documented as of this encounter Plan of Treatment Not on file documented as of this encounter Visit Diagnoses Diagnosis Other chest pain- Primary documented in this encounter Care Teams Fiberglass Boat Parts Finisher Relationship Specialty Start Date End Date Soren Mart MD PCP - General 02/10/09 documented as of this encounter
--- OUTSIDE RECORDS SUMMARY | 2024-08-18 20:07 | XMS_ITS | Encounter Summary ---
Author Organization [employer] Address [address] [place] [address] Care Team Providers Care Primer Supervisor Name Role Phone Porter Christianson MD Primary Care Provider [phone] Encounter Details Date Type Department Care Team (Latest Contact Info) Description 08/24/2007 Outpatient Historical HIS IMG-LAB [facility] Porter Christianson MD [address] [place] [address] Brain Injury NEC (CMS/HCC) Social History Tobacco Use Types Packs/Day Years Used Date Smoking Tobacco: Never Assessed Comments Unknown Sex and Gender Information Value Date Recorded Sex Assigned at Not on file Legal Sex Female 3:43 AM MATH INTERVENTIONIST Gender Identity Not on file Sexual Orientation [...] AM CDT Narrative 08/24/2007 1:35 PM CDT [facility] [address] [place], [place] [address] Admit Date: 08/24/2007 ANNI BRYANT Sex: F Admit Prov: PORTER CHRISTIANSON Date: 1990 Primary Care Prov: ALYX REGAN CMRN: [id number] [id number] Ordering Prov: N/A Accession Number: [id number] Interpretation CT HEAD WITHOUT CONTRAST, 08/23/2005 History: [...] CUONG SHAFFER 08/24/2007 13:35 Transcribed: 08/24/2007 13:11 [facility] Procedure Note Provider, Historical - 08/24/2007 [place] [id number] [place], [place] [address] Admit Date: 08/24/2007 ANNI BRYANT Sex: F Admit Prov: PORTER CHRISTIANSON Date: 1990 Primary Care Prov: ALYX REGAN CMRN: [id number] [id number] IM[facility]ING SERVICES Ordering Prov: N/A Interpretation CT [...] SHAFFER 08/24/2007 10:07 Electronically signed by: CUONG SHAFFRE 08/24/2007 13:35 Transcribed: 08/24/2007 13:11 [facility] Porter Christianson MD CT ORDERABLES Final Result documented in this encounter Visit Diagnoses Diagnosis Intracranial injury of other and unspecified nature, without mention of open intracranial wound, unspecified state of consciousness (CMS/[facility]) Intracranial injury of other and unspecified nature, without mention of open intracranial wound, unspecified state of consciousness documented in this encounter Care Teams Primer Supervisor Relationship Specialty Start Date End Date Porter Christianson MD PCP - General 02/10/09 documented as of this encounter
--- OUTSIDE RECORDS SUMMARY | 2024-08-18 20:07 | XMS_ITS | Encounter Summary ---
Author Organization [employer] [facility] Address [address] [place] [address] Care Team Providers Care Brim Greaser Operator Name Role Phone Soren Mart MD Primary Care Provider [phone] Encounter Details Date Type Department Care Team (Latest Contact Info) Description 03/14/2005 Outpatient Historical HIS [facility] D[facility] BLDG Conversion, History CHEST PAIN NEC (Primary Dx) Social History Tobacco Use Types Packs/Day Years Used Date Smoking Tobacco: Never Assessed Comments Unknown Sex and Gender Information Value Date Recorded Sex Assigned at Not on file Legal Sex Female 3:43 AM TIRE FINISHER Gender Identity Not on file Sexual Orientation [...] ORDERABLES Final R esult Performing Organization Address City/[facility] de Phone Number INTERFACE [...] ORDERABLES Final R esult Performing Organization Address City/[facility] de Phone Number INTERFACE [...] Primary documented in this encounter Care Teams Brim Greaser Operator Relationship Specialty Start Date End Date Soren Mart MD PCP - General 02/10/09 documented as of this encounter
--- OUTSIDE RECORDS SUMMARY | 2024-08-18 20:07 | XMS_ITS | Encounter Summary ---
Author Organization [facility] Address [address] [place] [address] Care Team Providers Care Patternmaker Bench Name Role Phone Soren Mart MD Primary Care Provider [phone] Encounter Details Date Type Department Care Team (Late st Contact Info) Description 04/30/2006 Orders Only [facility] Internal Medicine [address] [address] Inge Hutson MD NO ADDRESS ON FILE Social History Tobacco Use Types Packs/Day Years Used Date Smoking Tobacco: Never Assessed Comments Unknown Sex and Gender Information Value Date Recorded Sex Assigned at Not on file Legal Sex Female 3:43 AM WHEAT SHIPPER Gender Identity Not on file Sexual Orientation [...] was cleaned by lighting with a cigarette artist model, this ring was also used beforehand by [...] as to visualizeTM. LAB ORDERS: Order number: [id number] Test Ordered: REMOVE CERUMEN IMPACT [id number] 682.0-OTHER CELLULITIS AND ABSCESS ASSESSMENT: advised warm [...] on filedocumented in this encounter Care Teams Patternmaker Bench Relationship Specialty Start Date End Date Soren Mart MD PCP - General 02/10/09 documented as of this encounter
--- OUTSIDE RECORDS SUMMARY | 2024-08-18 20:07 | XMS_ITS | Encounter Summary ---
Author Organization [facility] Address 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 Can you prescribe a few for the stomach cramps. She has to go back to school to be able to be in [employer]'s performance. NAUSEA: Patient complains of nausea. The [...] on filedocumented in this encounter Care Teams Hospital Monitor Relationship Specialty Start Date End Date Soren Mart MD PCP - General 02/10/09 documented as of this encounter
--- OUTSIDE RECORDS SUMMARY | 2024-08-18 20:07 | XMS_ITS | Clinical Summary ---
Author Organization [facility] Address [address] [place] [address] Phone Care Team Providers Care Film Projector Operator Name Role Phone Denny Norman MD Primary Care Provider [phone] Allergies No known active allergies Medications prazosin [...] drink = 0.6 oz pur e alcohol) [employer] Utilities Answer Date Recorded In the past 12 months has [employer], [employer], oil, or water [employer] threatened to shut off services in your [...] week 11/20/2023 How often do you attend up health system or evangelical services? Patient declined 11/20/2023 Do you belong to any clubs o r organizations such as mormon groups, unions, fraternal or athletic groups, or [...] medical care, and heating? Patient declined 11/20/2023 [facility] - Occupational Stress Questionnaire Answer Date Recorded [...] place to sleep or slept in a senior care (including now)? No 11/20/2023 Education Answer Date Recorded What is the highest level of school you have completed or the highest degree you have received? Associate degree: academic program 01/08/2023 Sexually Active [employer] Comments Yes None Male Comments No Sex and Gender Information Value Date Recorded Sex Assigned at Female 07/09/2023 12:53 PM SINGEING TORCH OPERATOR Legal Sex Female 1:59 PM CDT Gender Identity Female 07/09/2023 12:53 PM SINGEING TORCH OPERATOR Sexual Orientation Straight 07/09/2023 12 :53 PM SINGEING TORCH OPERATOR Last Filed Vital Signs Vital Sign Reading [...] LAB - MISCELLANEOUS 06/09/2024 1 2:00 AM SINGEING TORCH OPERATOR COMPLETE BLOOD COUNT (CBC) WITH DIFF 06/03/2024 12:00 AM SINGEING TORCH OPERATOR LAB - MISCELLANEOUS 06/03/2024 1 2:00 AM SINGEING TORCH OPERATOR COMPLETE BLOOD COUNT (CBC) WITH DIFF 05/24/2024 12:00 AM SINGEING TORCH OPERATOR URINE PROTEIN/CREATININE RATIO (RANDOM) [facility] [id number] 05/24/2024 12:00 AM SINGEING TORCH OPERATOR URINALYSIS (UA) RANDOM 05/24/2024 12:00 AM SINGEING TORCH OPERATOR URIC ACID (BLOOD ASSAY) 05/24/2024 12:00 AM SINGEING TORCH OPERATOR CMP (COMPREHENSIVE METABOLIC PANEL) 05/24/2024 12:00 AM SINGEING TORCH OPERATOR HEPATITIS C ANTIBODY 02/24/2024 12:00 AM CDT HUMAN PAPILLOMA VIRUS (HPV) Routine 02/21/2023 2:35 PM CDT Well woman exam with routine gynecological exam PATHOLOGY CYTOLOGY CAD DRAFTSMAN Routine 02/21/2023 2:35 PM CDT Well woman exam with routine gynecological exam from Last 3 Months or Most Recently Relevant to Health Maintenance Results * LAB - MISCELLANEOUS (06/09/2024 12:00 AM SINGEING TORCH OPERATOR) Only the most recent of2 resultswithin the time period is included. 06/09/2024 us Provider Scan CHEMISTRY ORDERABLES Final Resul t SCAN * COMPLETE BLOOD COUNT (CBC) WITH DIFF (06/03/2024 12:00 AM SINGEING TORCH OPERATOR) Only the most recent of2 resultswithin the time period is included. 06/03/2024 us Provider Scan HEMATOLOGY ORDERABLES Final Resu lt Performing Organization Address [facility] de Phone Number SCAN * URINE PROTEIN/CREATININE RATIO (RANDOM) [facility] [id number] (05/24/2024 12:00 AM SINGEING TORCH OPERATOR) 05/24/2024 us Provider Scan LAB SEND OUTS Final Result Performing Organization Address [facility] de Phone Number SCAN * URINALYSIS (UA) RANDOM (05/24/2024 12:00 AM SINGEING TORCH OPERATOR) 05/24/2024 us Provider Scan URINE ORDERABLES Final Result Performing Organization Address [facility] de Phone Number SCAN * URIC ACID (BLOOD ASSAY) (05/24/2024 12:00 AM SINGEING TORCH OPERATOR) 05/24/2024 us Provider Scan CHEMISTRY ORDERABLES Final Resul t Performing Organization Address [facility] de Phone Number SCAN * CMP (COMPREHENSIVE METABOLIC PANEL) (05/24/2024 12:00 AM SINGEING TORCH OPERATOR) 05/24/2024 us Provider Scan CHEMISTRY ORDERABLES Final Resul t Performing Organization Address City/[facility] de Phone Number SCAN * HEPATITIS C ANTIBODY (02/24/2024 12:00 AM CDT) 02/24/2024 us Provider Scan CHEMISTRY ORDERABLES Final Resul t Performing Organization Address [facility]/ZIP Co de Phone Number SCAN * PATHOLOGY CYTOLOGY CAD DRAFTSMAN (02/21/2023 2:35 PM CDT) SPECIMEN ADEQUACY Satisfactory for evaluation. Endocervical/transf ormation zone component is present. 03/11/2023 3:22 PM CDT [facility] GENERAL CATEGORY EPITHELIAL CELL ABNORMALITY. 03/11/2023 3:22 PM CDT [facility] DESCRIPTIVE DIAGNOSIS ASCUS: Atypical squamous cells of undetermined significance. 03/11/2023 3:22 PM CDT [facility] R FINDINGS Fungal organisms present, morphologically consistent with Ricarda species. 03/11/2023 3:22 PM CDT [facility] Automated Examination Analysis of this sample has been assisted by an automated imaging and review system ([employer] System, [employer], [place], [place]). This case is further evaluated and finalized by a brush fabrication supervisor and/or pathologist. 03/11/2023 3:22 PM CDT [facility] Disclaimer The PAP smear is a screening [...] unless clinically indicated. 03/11/2023 3:22 PM CDT [facility] Other CERVIX UTERI STRUCTURE / Unknown Non-Phlebotomy Collection / Unknown 02/21/2023 2:35 PM CDT 02/21/2023 2:35 PM CDT us Amelia Beard CLINICAL STUDY MANAGER, [facility]ATH[facility]ER PATHOLOGY/CYTOLOGY ORDER ADAM Final Result Performing Organization Address City/[facility]/ZIP Co de Phone Number [facility] [address] [place] [address], [place] * (ABNORMAL) HUMAN PAPILLOMA VIRUS (HPV) (02/21/2023 2:35 PM CDT) HPV OTHER HIGH RISK TYPES, PCR POSITIVE(A) NEGATIVE 02/25/2023 7:37 AM CDT [facility] Comment: Positive for one or more of the following Other High HPV types: 31, 33, 35, 39, 45, 51, 52, 56, 58, 59, 66, and 68. False-positive results have been reported with molecular assays. If these positive results are discordant with clinical/cytohistologic findings, repeat testing may be considered after an appropriate interval. HPV TYPE 16 NEGATIVE NEGATIVE 02/25/2023 7:37 AM CDT [facility] Comment: A negative high-risk HPV result does [...] 18 NEGATIVE NEGATIVE 02/25/2023 7:37 AM CDT [facility] Comment: A negative high-risk HPV result does [...] OR DIAGNOSTIC SCREENING 02/25/2023 7:37 AM CDT [facility] Other Non-Phlebotomy Collection / Unknown 02/21/2023 2:35 PM CDT 02/21/2023 2:35 PM CDT Narrative [facility] - 02/25/2023 7:37 AM CDT Performed by Real-Time Polymerase Chain Reaction (PCR) on the Caryl Marcellus 4800. This assay has been validated for use with post-aliquot samples from the [employer] T5000 processor. us Amelia Beard APRN, LEATHER SHAVER LAB SEND OUTS Final Re sult [facility] [address] [place] [address], [place] from Last 3 Months or Most Recently Relevant to Health Maintenance Insurance MEDICAID [facility] PLAN Care Teams Film Projector Operator Relationship Specialty Start Date End Date Denny Norman MD #[address] [address] PCP - General Family Medicine 01/08/23
--- OUTSIDE RECORDS SUMMARY | 2024-08-18 20:07 | XMS_ITS | Encounter Summary ---
Author Organization [facility] Address [address] [place] [address] Care Team Providers Care Sr. Unix System Administrator Name Role Phone Soren Mart MD Primary Care Provider Encounter Details Date Type Department Care Team (Late st Contact Info) Description 04/30/2006 Outpatient Historical [facility] Internal Medicine [address] [address] Inge Hutson MD NO ADDRESS ON FILE Social History Tobacco Use Types Packs/Day Years Used Date Smoking Tobacco: Never Assessed Comments Unknown Sex and Gender Information Value Date Recorded Sex Assigned at Not on file Legal Sex Female 3:43 AM SQUILGEER Gender Identity Not on file Sexual Orientation Not on file documented as of this encounter Plan of Treatment Not on file documented as of this encounter Visit Diagnoses Not on filedocumented in this encounter Care Teams Sr. Unix System Administrator Relationship Specialty Start Date End Date Soren Mart MD PCP - General 02/10/09 documented as of this encounter
--- OUTSIDE RECORDS SUMMARY | 2024-08-18 20:07 | XMS_ITS | Encounter Summary ---
Author Organization [facility] Address [address] [place] [address] Care Team Providers Care Program Review Director Name Role Phone Soren Mart MD Primary Care Provider [phone] Encounter Details Date Type Department Care Team (Late st Contact Info) Description 07/08/2007 Orders Only [facility] Internal Medicine [address] [address] Inge Hutson MD NO ADDRESS ON FILE Social History Tobacco Use Types Packs/Day Years Used Date Smoking Tobacco: Never Assessed Comments Unknown Sex and Gender Information Value Date Recorded Sex Assigned at Not on file Legal Sex Female 3:43 AM PRESS SETUP OPERATOR Gender Identity Not on file Sexual Orientation Not on file documented as of this encounter Progress Notes * Inge Hutson MD - 10/28/2007 8:18 PM CDT TIME:01:31 pm PATIENT`S HOME PHONE: PATIENT`S WORK PHONE: PATIENT`S INSURANCE: [facility] [employer] [facility] WHO TOOK THE CALL: Amelia Lee R GENERAL INFORMATION WHO CALLED: Patient`s mother called. CURRENT ALLERGY LIST: NO KNOWN DRUG ALLERGY PHARMACY NUMBER: [phone] PROBLEMS: CONGESTION: Patient complains of congestion. COUGH:Patient [...] on filedocumented in this encounter Care Teams Program Review Director Relationship Specialty Start Date End Date Soren Mart MD PCP - General 02/10/09 documented as of this encounter
--- OUTSIDE RECORDS SUMMARY | 2024-08-18 20:07 | XMS_ITS | Encounter Summary ---
Author Organization [facility] Address [address] [place] [address] Phone Care Team Providers Care Weight Caller Name Role Phone Denny Norman MD Primary Care Provider [phone] Encounter Details Date Type Department Care Team (Late st Contact Info) Description 01/02/2023 Telephone [facility] [address] [place] [address] Provider, None [place] Social History Tobacco Use Types Packs/Day Years Used Date Smoking Tobacco: Never Assessed Comments Unknown Sex and Gender Information Value Date Recorded Sex Assigned at Female 07/09/2023 12:53 PM POTATO CHIP SACKING MACHINE OPERATOR Legal Sex Female 1:59 PM CDT Gender Identity Female 07/09/2023 12:53 PM POTATO CHIP SACKING MACHINE OPERATOR Sexual Orientation Straight 07/09/2023 12 :53 PM POTATO CHIP SACKING MACHINE OPERATOR documented as of this encounter Miscellaneous [...] see someone other than physician, such as COMMUNICATIONS INSTRUCTOR, [place], resident? yes Patient reason for appointment/any current symptoms: establish care med refills Other information (including need for civil engineering drafter): no documented in this encounter Plan of Treatment Not on file documented as of this encounter Visit Diagnoses Not on filedocumented in this encounter Care Teams Weight Caller Relationship Specialty Start Date End Date Denny Norman MD #[address] [address] PCP - General Family Medicine 01/08/23 documented as of this encounter
--- OUTSIDE RECORDS SUMMARY | 2024-08-18 20:07 | XMS_ITS | Encounter Summary ---
Author Organization [employer] Address [address] [place] [address] Care Team Providers Care Bariatric Program Coordinator Name Role Phone Soren Mart MD Primary Care Provider [phone] Encounter Details Date Type Department Care Team (Latest Contact Info) Description 02/06/2009 Outpatient Historical HIS IMG[facility]LAB [facility] Soren Mart MD [address] [place] [address] Head Injury, Unspecified Social History Tobacco Use Types Packs/Day Years Used Date Smoking Tobacco: Never Alcohol Use Standard Drinks/Week Comments Not Asked 0 (1 standard drink = 0.6 oz pur e alcohol) Comments No Sex and Gender Information Value Date Recorded Sex Assigned at Not on file Legal Sex Female 3:43 AM PROJECT MANAGEMENT ENGINEER Gender Identity Not on file Sexual Orientation Not on file documented as of this encounter Plan of Treatment Not on file documented as of this encounter Visit Diagnoses Diagnosis Head injury, unspecified documented in this encounter Care Teams Bariatric Program Coordinator Relationship Specialty Start Date End Date Soren Mart MD PCP - General 02/10/09 documented as of this encounter
--- OUTSIDE RECORDS SUMMARY | 2024-08-18 20:07 | XMS_ITS | Encounter Summary ---
Author Organization [facility] Address [address] [place] [address] Care Team Providers Care General Manager Name Role Phone Soren Mart MD Primary Care Provider [phone] Encounter Details Date Type Department Care Team (Late st Contact Info) Description 04/24/2007 Orders Only [facility] Internal Medicine [address] [address] Inge Hutson MD NO ADDRESS ON FILE Social History Tobacco Use Types Packs/Day Years Used Date Smoking Tobacco: Never Assessed Comments Unknown Sex and Gender Information Value Date Recorded Sex Assigned at Not on file Legal Sex Female 3:43 AM WOOD GOUGER Gender Identity Not on file Sexual Orientation Not on file documented as of this encounter Progress Notes * Inge Hutson MD - 10/29/2007 5:13 PM CDT TIME:02:07 pm PATIENT`S HOME PHONE: PATIENT`S WORK PHONE: [facility] WHO TOOK THE CALL: Amelia Lee R GENERAL INFORMATION ALTERNATIVE PHONE NUMBER: [phone] WHO CALLED: Patient`s mother called.Carly Cisneros CURRENT [...] on filedocumented in this encounter Care Teams General Manager Relationship Specialty Start Date End Date Soren Mart MD PCP - General 02/10/09 documented as of this encounter
--- OUTSIDE RECORDS SUMMARY | 2024-08-18 20:07 | XMS_ITS | Encounter Summary ---
Author Organization [employer] Address [address] [place] [address] Care Team Providers Care Painting Supervisor Name Role Phone Soren Mart MD Primary Care Provider Encounter Details Date Type Department Care Team (Late st Contact Info) Description 08/18/2024 External Device Data [facility] ABSTRACTION Provider, Abstract NO ADDRESS ON FILE Social History Tobacco Use Types Packs/Day Years Used Date Smoking Tobacco: Never Smokeless Tobacco: Never Alcohol Use Standard Drinks/Week Comments No 0 (1 standard drink = 0.6 oz pur e alcohol) rarely Comments No Sex and Gender Information Value Date Recorded Sex Assigned at Not on file Legal Sex Female 3:43 AM VICE PRESIDENT PLANNING Gender Identity Not on file Sexual Orientation Not on file Occupation Industry Job Start Date Job End Date Not on file Not on file Not on file Not on file documented as of this encounter Plan of Treatment Not on file documented as of this encounter Visit Diagnoses Not on filedocumented in this encounter Care Teams Painting Supervisor Relationship Specialty Start Date End Date Sorne Mart MD PCP - General 02/10/09 documented as of this encounter
--- OUTSIDE RECORDS SUMMARY | 2024-08-18 20:07 | XMS_ITS | Encounter Summary ---
Author Organization [facility] Address [address] [place] [address] Care Team Providers Care Student Affairs Dean Name Role Phone Soren Mart MD Primary Care Provider Encounter Details Date Type Department Care Team (Late st Contact Info) Description 04/06/2007 Orders Only [facility] Internal Medicine [address] [address] Inge Hutson MD NO ADDRESS ON FILE Social History Tobacco Use Types Packs/Day Years Used Date Smoking Tobacco: Never Assessed Comments Unknown Sex and Gender Information Value Date Recorded Sex Assigned at Not on file Legal Sex Female 3:43 AM REMOTE SENSING SURVEYOR Gender Identity Not on file Sexual Orientation Not on file documented as of this encounter Progress Notes * Inge Hutson MD - 10/30/2007 1:35 PM CDT TIME:08:59 am PATIENT`S HOME PHONE: PATIENT`S WORK PHONE: PATIENT`S INSURANCE: [facility] WHO TOOK THE CALL: Amelia Lee R GENERAL INFORMATION ALTERNATIVE PHONE NUMBER: [phone] or Amelia at work WHO CALLED: Patient`s mother called. CURRENT ALLERGY LIST: NO KNOWN DRUG ALLERGY PHARMACY NUMBER: [phone] PROBLEMS: feeling bad , achy FEVER: Patient [...] filedocumented in this encounter Care Teams Student Affairs Dean Relationship Specialty Start Date End Date Soren Mart MD PCP - General 02/10/09 documented as of this encounter
--- OUTSIDE RECORDS SUMMARY | 2024-08-18 20:07 | XMS_ITS | Encounter Summary ---
Author Organization [facility] Address [address] [place] [address] Care Team Providers Care Performing Arts Road Manager Name Role Phone Soren Mart MD Primary Care Provider [phone] Encounter Details Date Type Department Care Team (Late st Contact Info) Description 07/06/2007 Outpatient Historical [facility] Internal Medicine [address] [address] Inge Hutson MD NO ADDRESS ON FILE Social History Tobacco Use Types Packs/Day Years Used Date Smoking Tobacco: Never Assessed Comments Unknown Sex and Gender Information Value Date Recorded Sex Assigned at Not on file Legal Sex Female 3:43 AM BRICK MAKER Gender Identity Not on file Sexual Orientation Not on file documented as of this encounter Last Filed Vital Signs Vital Sign Reading Time Taken Comments Blood Pressure - - Pulse - - Temperature 37 C (98.6 F) 07/06/2007 11:45 AM BRICK MAKER Respiratory Rate - - Oxygen Saturation - - Inhaled Oxygen Concentration - - Weight 68 kg (150 lb) 07/06/2007 11:45 AM BRICK MAKER Height - - Body Mass Index - - documented in this encounter Plan of Treatment Not on file documented as of this encounter Visit Diagnoses Not on filedocumented in this encounter Care Teams Performing Arts Road Manager Relationship Specialty Start Date End Date Soren Mart MD PCP - General 02/10/09 documented as of this encounter
--- OUTSIDE RECORDS SUMMARY | 2024-08-18 20:07 | XMS_ITS | Encounter Summary ---
Author Organization [facility] Address [address] [place] [address] Care Team Providers Care Spring Inspector Name Role Phone Soren Mart MD Primary Care Provider [phone] Encounter Details Date Type Department Care Team (Late st Contact Info) Description 01/15/2006 [facility] FILE Pain in Joint, Ankle and Foot (Primary Dx) Social History Tobacco Use Types Packs/Day Years Used Date Smoking Tobacco: Never Assessed Comments Unknown Sex and Gender Information Value Date Recorded Sex Assigned at Not on file Legal Sex Female 3:43 AM ASSEMBLER LEATHER GOODS Gender Identity Not on file Sexual Orientation Not on file documented as of this encounter Plan of Treatment Not on file documented as of this encounter Visit Diagnoses Diagnosis Pain in joint, ankle and foot- Primary documented in this encounter Care Teams Spring Inspector Relationship Specialty Start Date End Date Soren Mart MD PCP - General 02/10/09 documented as of this encounter
--- OUTSIDE RECORDS SUMMARY | 2024-08-18 20:07 | XMS_ITS | Encounter Summary ---
Author Organization [facility] Address [address] [place] [address] Care Team Providers Care Instrument And Control Technician Name Role Phone Soren Mart MD Primary Care Provider Encounter Details Date Type Department Care Team (Latest Contact Info) Description 07/19/2004 Outpatient Historical HIS [facility] [address] [place] [address] DEPRESSIVE DISORDER NEC (Primary Dx) Social History Tobacco Use Types Packs/Day Years Used Date Smoking Tobacco: Never Assessed Comments Unknown Sex and Gender Information Value Date Recorded Sex Assigned at Not on file Legal Sex Female 3:43 AM CURTAINS AND DRAPERIES SALESPERSON Gender Identity Not on file Sexual Orientation Not on file documented as of this encounter Plan of Treatment Not on file documented as of this encounter Visit Diagnoses Diagnosis Depressive disorder, not elsewhere classified- Primary documented in this encounter Care Teams Instrument And Control Technician Relationship Specialty Start Date End Date Soren Mart MD PCP - General 02/10/09 documented as of this encounter
--- OUTSIDE RECORDS SUMMARY | 2024-08-18 20:07 | XMS_ITS | Encounter Summary ---
Author Organization [facility] Address 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 CURRENT ALLERGY LIST: NO KNOWN DRUG ALLERGY PHARMACY NUMBER: [phone] [employer] pha PROBLEMS: VAGINAL DISCHARGE: [...] some metrogel but would have her see machine taper if her sx persist. MEDICATIONS: Call in [...] on filedocumented in this encounter Care Teams Surgical Forceps Fabricator Relationship Specialty Start Date End Date Soren Mart MD PCP - General 02/10/09 documented as of this encounter
--- OUTSIDE RECORDS SUMMARY | 2024-08-18 20:07 | XMS_ITS | Encounter Summary ---
Author Organization [employer] Address [address] [place] [address] Care Team Providers Care Project Surveyor Name Role Phone Soren Mart MD Primary Care Provider [phone] Encounter Details Date Type Department Care Team (Late st Contact Info) Description 03/14/2005 Outpatient Historical [facility] Support [facility] (Peds Cardiology-[facility]) [address] [facility] 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
--- OUTSIDE RECORDS SUMMARY | 2024-08-18 20:07 | XMS_ITS | Encounter Summary ---
Author Organization [facility] Address 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 WHO TOOK THE CALL: Amelia Lee R GENERAL INFORMATION ALTERNATIVE PHONE NUMBER: [phone]-Amelia WHO CALLED: Patient`s mother called. CURRENT ALLERGY LIST: NO KNOWN DRUG ALLERGY PHARMACY NUMBER: [phone] PROBLEMS: EARACHE: Patient complains of earache. The [...] on filedocumented in this encounter Care Teams Film Flat Inspector Relationship Specialty Start Date End Date Soren Mart MD PCP - General 02/10/09 documented as of this encounter
--- OUTSIDE RECORDS SUMMARY | 2024-08-18 20:07 | XMS_ITS | Encounter Summary ---
Author Organization [facility] Address 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
--- OUTSIDE RECORDS SUMMARY | 2024-08-18 20:07 | XMS_ITS | Encounter Summary ---
Author Organization [facility] Address 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 WHO TOOK THE CALL: Amelia Lee R GENERAL INFORMATION WHO CALLED: Patient`s mother called. CURRENT ALLERGY LIST: NO KNOWN DRUG ALLERGY PROBLEMS: all x 2 weeks CONGESTION: Patient complains of sinus congestion, complains of head congestion, complains of chestcongestion, complains of nasal congestion. COUGH:Patient complains of cough. symptoms had improved some, but now rigo in head worse. SECTION 1: REQUESTED ACTION [facility] 01/16/07 at 04:13 pm: MEDICATION REQUEST: Patient wants medications and can not come in. DOCTOR`S RESPONSE: [facility] 01/16/07 at 04:[address] Mccormick MEDICATIONS: Call in to Pharmacy DIFLUCAN ORAL TABLET 150 MG, 1 Every Day, 1 Dispensed, status: NEW PRESCRIPTION, 01/16/2007. MEDROL (SANDRA) ORAL TABLET 4 MG, 1 PACKET ORAL DIRECTED, 1 Dispensed, status: NEW PRESCRIPTION, 01/16/2007. ZITHROMAX Z-SANDRA ORAL TABLET 250 MG, TAKE DIRECTED, 1 Dispensed, status: CONTINUED, 01/16/2007. also steam inhalations FINAL ACTION: [facility] 01/16/07 at 04:15 pm Spoke with patient 01/16/07 at 04:15 pm. mom printed script Electronically Signed by: Maribeth Sanchez on Friday, April 06, 2007 documented in this encounter Plan of Treatment Not on file documented as of this encounter Visit Diagnoses Not on filedocumented in this encounter Care Teams Cash Register Mechanic Relationship Specialty Start Date End Date Soren Mart MD PCP - General 02/10/09 documented as of this encounter
--- OUTSIDE RECORDS SUMMARY | 2024-08-18 20:07 | XMS_ITS | Encounter Summary ---
Author Organization [employer] Address 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 STAFF 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 Gender Identity Not on file Sexual Orientation Not on file documented as of this encounter Plan of Treatment Not on file documented as of this encounter Procedures Procedure Name Priority Date/Time Associated Diagnosis Comments URINE CULTURE Routine 05/21/2008 11:47 AM HOTEL STAFF MEMBER documented in this encounter Results * URINE CULTURE (05/21/2008 11:47 AM HOTEL STAFF MEMBER) PRELIMINARY REPORT Pending [facility] FINAL REPORT No growth 24 hours [facility] 05/21/2008 11:4 7 AM HOTEL STAFF MEMBER 05/21/2008 6:10 PM HOTEL STAFF MEMBER us Dario Coronel MD MICROBIOLOGY - GENERAL ORDER ADAM Final Result INTERFACE SYSTEM Refer to clinic/hospital department [facility] CLIA# [id number] [address] [place] [address] documented in this encounter Visit Diagnoses Not on filedocumented in this encounter Care Teams Licensed Psychologist Manager Relationship Specialty Start Date End Date Soren Mart MD PCP - General 02/10/09 documented as of this encounter
--- OUTSIDE RECORDS SUMMARY | 2024-08-18 20:07 | XMS_ITS | Encounter Summary ---
Author Organization Currently Address [address] [place] [address] Care Team Providers Care Fast Food Team Member Name Role Phone Soren Mart MD Primary Care Provider Encounter Details Date Type Department Care Team (Late st Contact Info) Description 09/22/2008 Outpatient Historical [facility] Elmo Reich MD [address] [facility] [address] [place] [address] Social History Tobacco Use Types Packs/Day Years Used Date Smoking Tobacco: Never Assessed Comments Unknown Sex and Gender Information Value Date Recorded Sex Assigned at Not on file Legal Sex Female 3:43 AM SPECIAL NEEDS NANNY Gender Identity Not on file Sexual Orientation [...] AM CDT Narrative 10/01/2008 11:40 AM CDT [address] [address] [address] [place], [place] [address] Admit Date: 09/23/2008 ANNI BRYANT Sex: F Admit Prov: ELMO REICH Date: 1990 Primary Care Prov: CMRN: [id number] Room: SURG-A N: [id number] IMAGING SERVICES Ordering Prov: ELMO REICH Accession Number: [id number] Interpretation Fluoroscopic guidance was used by the surgeon to assist with performance of this intra-operative procedure. Please refer to surgeon s operative report for specific details. Dictated by: RADIOLOGY, DEPARTMENT O Electronically signed by: RADIOLOGY, DEPARTMENT 10/01/2008 11:39 Transcribed: 10/01/2008 07:42 AMK Procedure Note Radiology, Radiologist - 10/01/2008 [address] [address] [address] [place], [place] [address] Admit Date: 09/23/2008 ANNI BRYANT Sex: F Admit Prov: ELMO REICH Date: 1990 Primary Care Prov: CMRN: [id number] [id number] IM[facility] Ordering Prov: ELMO REICH Interpretation [...] AM CDT) , URINE POC Negative Negative [facility] Urine specimen (specimen) 09/23/2008 10:00 AM CDT 09/23/2008 10:00 AM CDT Elmo Reich MD POINT OF CARE TESTING Final Re sult Performing Organization Address City/[facility] de Phone Number INTERFACE SYSTEM Refer to clinic/hospital department [facility] CLIA# [id number] [address] [place] [address] * HEMOGLOBIN AND HEMATOCRIT (09/23/2008 9:50 AM CDT) HEMOGLOBIN 12.3 11.8 - 14.8 g/dL [facility] HEMATOCRIT 37.5 35.5 - 44.0 % [facility] Blood specimen (specimen) 09/23/2008 9:50 AM CDT 09/23/2008 10:05 AM CDT Narrative INTERFACE SYSTEM - 09/23/2008 10:15 AM CDT room 6 Elmo Reich MD HEMATOLOGY ORDERABLES Final Re sult Performing Organization Address [facility] Phone Number INTERFACE SYSTEM Refer to clinic/hospital department [facility] CLIA# [id number] [address] [place] [address] documented in this encounter Visit Diagnoses Not on filedocumented in this encounter Care Teams Fast Food Team Member Relationship Specialty Start Date End Date Soren Mart MD PCP - General 02/10/09 documented as of this encounter
--- OUTSIDE RECORDS SUMMARY | 2024-08-18 20:07 | XMS_ITS | Encounter Summary ---
Author Organization [facility] Address [address] [place] [address] Care Team Providers Care Hassock Maker Name Role Phone Soren Mart MD Primary Care Provider [phone] Encounter Details Date Type Department Care Team (Late st Contact Info) Description 07/06/[address] 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 [...] on filedocumented in this encounter Care Teams Hassock Maker Relationship Specialty Start Date End Date Soren Mart MD PCP - General 02/10/09 documented as of this encounter
--- OUTSIDE RECORDS SUMMARY | 2024-08-18 20:07 | XMS_ITS | Encounter Summary ---
Author Organization [facility] Address 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
--- OUTSIDE RECORDS SUMMARY | 2024-08-18 20:07 | XMS_ITS | Encounter Summary ---
Author Organization [employer] Address [address] [place] [address] Care Team Providers Care Track Greaser Name Role Phone Soren Mart MD Primary Care Provider [phone] Encounter Details Date Type Department Care Team [...] on file Legal Sex Female 3:43 AM EDUCATIONAL CONSULTANT Gender Identity Not on file Sexual Orientation [...] PM CDT Narrative 08/25/2008 9:51 PM CDT [address] [place] [address] [address] [place], [place] [address] Admit Date: 08/25/2008 ANNI BRYANT Sex: F Admit Prov: ER, AUTHORIZED P Date: 1990 Primary Care Prov: CMRN: [id number] Room: ER-A N: [address] [place] [address] IMAGING SERVICES Ordering Prov: N/A Accession Number: [id number] Interpretation EXAMINATION: LEFT FIFTH FINGER, 3 VIEWS. [...] Procedure Note Denver Panda MD - 08/25/2008 [address] [address] [address] [place], [place] [address] Admit Date: 08/25/2008 ANNI BRYANT Sex: F Admit Prov: ER, AUTHORIZED P Date: 1990 Primary Care Prov: CMRN: [id number] [facility]: [id number] IMAGING SERVICES Ordering Prov: N/A Interpretation EXAMINATION: [...] premises documented in this encounter Care Teams Track Greaser Relationship Specialty Start Date End Date Soren Mart MD PCP - General 02/10/09 documented as of this encounter
--- OUTSIDE RECORDS SUMMARY | 2024-08-18 20:07 | XMS_ITS | Encounter Summary ---
Author Organization [employer] Address [address] [place] [address] Care Team Providers Care Food Tester Name Role Phone Soren Mart MD Primary Care Provider Encounter Details Date Type Department Care Team (Latest Contact Info) Description 07/06/2005 Outpatient Historical HIS [facility] BLDG Conversion, History FX MID/PRX PHAL, HAND-CLOSE (Primary Dx) Social History Tobacco Use Types Packs/Day Years Used Date Smoking Tobacco: Never Assessed Comments Unknown Sex and Gender Information Value Date Recorded Sex Assigned at Not on file Legal Sex Female 3:43 AM STATE ASSESSED PROPERTIES DIRECTOR Gender Identity Not on file Sexual Orientation Not on file documented as of this encounter Plan of Treatment Not on file documented as of this encounter Visit Diagnoses Diagnosis Closed fracture of middle or proximal phalanx or phalanges of hand- Primary documented in this encounter Care Teams Food Tester Relationship Specialty Start Date End Date Soren Mart MD PCP - General 02/10/09 documented as of this encounter
--- NOTE | 2024-08-18 20:50 | PC.NURSE ---
Called and spoke with Dr. Javier, order for MAX to be done, if ROM plus negative and MAX withing normal limits, pt may be discharged.
--- NOTE | 2024-08-18 20:54 | OBADM ---
This patient, Bel Lee, admitted to the OB room OB Post 116 for observation. Patient/family oriented to hospital policies and general routines including ID bracelet, bed and alarms, visiting hours, pain management, procedures, bathroom and other care routines, personal items, smoking policy, room service/diet, and visiting hours. Patient/Family are encouraged to report perceived risks to care and to ask questions if they do not understand what they are told or what they should do.
--- NOTE | 2024-08-18 21:00 | PC.NURSE ---
2055 US at bedside for MAX.
--- NOTE | 2024-08-18 21:56 | PC.NURSE ---
[address] Javier, notified of MAX 17.9 and reactive NST. Ok to D/C home, have pt wear pad and continue to monitor.
--- NOTE | 2024-09-06 09:38 | PM.OBTRLD ---
OB - Triage/Final Diagnosis Visit Information Date of evaluation: 09/02/24 Reason for evaluation: other (leakage of fluid) Comments/Additional reasons for admission: I have assessed the risk for this patient, Bel Bhavesh Lee, and determined that she would benefit from observation care.
== END 2024-08-18 22:14 | disposition home or self-care (01) ==
PROVIDERS: Admitting Provider Obstetrics & Gynecology; Visit Provider Obstetrics & Gynecology
DX: O42.913 Preterm premature rupture of membranes, unspecified as to length of time between rupture and onset of labor, third trimester (principal); Z3A.35 35 weeks gestation of pregnancy
CPT/HCPCS: 76815; G0378; G0379

== ENCOUNTER 2024-08-24 10:33 | Outpatient (CLI) | payer OTHER, SELFPAY ==
[2024-08-24 11:07] LABS: Alanine Aminotransferase 10 U/L (6-35); Albumin Level 3.4 g/dL (3.5-5.1); Alkaline Phosphatase 113 U/L (38-126); Aspartate Amino Transferase 14 U/L (14-36); Bilirubin,Total 0.3 mg/dL (0.2-1.3)
--- OUTSIDE RECORDS SUMMARY | 2024-08-24 11:59 | XMS_ITS | Encounter Summary ---
Author Organization [facility] Address 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
--- OUTSIDE RECORDS SUMMARY | 2024-08-24 11:59 | XMS_ITS | Encounter Summary ---
Author Organization [employer] Address [address] [place] [address] Care Team Providers Care Court Collections Officer Name Role Phone Soren Mart MD Primary Care Provider Encounter Details Date Type Department Care Team (Latest Contact Info) Description 07/06/2005 [facility], History FX MID/PRX PHAL, HAND-CLOSE (Primary Dx) Social History Tobacco Use Types Packs/Day Years Used Date Smoking Tobacco: Never Assessed Comments Unknown Sex and Gender Information Value Date Recorded Sex Assigned at Not on file Legal Sex Female 3:43 AM TREATMENT COUNSELOR Gender Identity Not on file Sexual Orientation Not on file documented as of this encounter Plan of Treatment Not on file documented as of this encounter Visit Diagnoses Diagnosis Closed fracture of middle or proximal phalanx or phalanges of hand- Primary documented in this encounter Care Teams Court Collections Officer Relationship Specialty Start Date End Date Soren Mart MD PCP - General 02/10/09 documented as of this encounter
--- OUTSIDE RECORDS SUMMARY | 2024-08-24 11:59 | XMS_ITS | Encounter Summary ---
Author Organization [facility] Address [address] [place] [address] Care Team Providers Care Rn Geriatric Name Role Phone Soren Mart MD Primary Care Provider [phone] Encounter Details Date Type Department Care Team (Latest Contact Info) Description 07/19/2004 Outpatient Historical HIS [facility], [place] [address] [place] [address] DEPRESSIVE DISORDER NEC (Primary Dx) Social History Tobacco Use Types Packs/Day Years Used Date Smoking Tobacco: Never Assessed Comments Unknown Sex and Gender Information Value Date Recorded Sex Assigned at Not on file Legal Sex Female 3:43 AM MEDICAL ACCOUNTING CLERK Gender Identity Not on file Sexual Orientation Not on file documented as of this encounter Plan of Treatment Not on file documented as of this encounter Visit Diagnoses Diagnosis Depressive disorder, not elsewhere classified- Primary documented in this encounter Care Teams Rn Geriatric Relationship Specialty Start Date End Date Soren Mart MD PCP - General 02/10/09 documented as of this encounter
--- OUTSIDE RECORDS SUMMARY | 2024-08-24 11:59 | XMS_ITS | Encounter Summary ---
Author Organization [facility] Address 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
--- OUTSIDE RECORDS SUMMARY | 2024-08-24 11:59 | XMS_ITS | Encounter Summary ---
Author Organization [facility] Address [address] [place] [address] Care Team Providers Care Interventional Nurse Name Role Phone Soren Mart MD Primary Care Provider [phone] Encounter Details Date Type Department Care Team (Late st Contact Info) Description 02/04/2006 Orders Only [facility] Internal Medicine [address] [address] Inge Hutson MD NO ADDRESS ON FILE Social History Tobacco Use Types Packs/Day Years Used Date Smoking Tobacco: Never Assessed Comments Unknown Sex and Gender Information Value Date Recorded Sex Assigned at Not on file Legal Sex Female 3:43 AM MERINGUER Gender Identity Not on file Sexual Orientation Not on file documented as of this encounter Progress Notes * Inge Hutson MD - 03/24/2008 11:14 PM CDT TIME:01:35 pm PATIENT`S HOME PHONE: PATIENT`S WORK PHONE: PATIENT`S INSURANCE: [facility] [employer] [facility] WHO TOOK THE CALL: Amelia Lee R GENERAL INFORMATION ALTERNATIVE PHONE NUMBER: [phone]-Amelia WHO CALLED: Patient`s mother called. CURRENT ALLERGY LIST: NO KNOWN DRUG ALLERGY PHARMACY NUMBER: [phone] PROBLEMS: EARACHE: Patient complains of earache. The [...] on filedocumented in this encounter Care Teams Interventional Nurse Relationship Specialty Start Date End Date Soren Mart MD PCP - General 02/10/09 documented as of this encounter
--- OUTSIDE RECORDS SUMMARY | 2024-08-24 11:59 | XMS_ITS | Encounter Summary ---
Author Organization [facility] Address 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
--- OUTSIDE RECORDS SUMMARY | 2024-08-24 11:59 | XMS_ITS | Encounter Summary ---
Author Organization [facility] Address 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 de Phone Number INTERFACE SYSTEM [...] ORDERABLES Final R esult Performing Organization Address City/[facility] de Phone Number INTERFACE SYSTEM [...] Primary documented in this encounter Care Teams Finishing Range Feeder Relationship Specialty Start Date End Date Soren Mart MD PCP - General 02/10/09 documented as of this encounter
--- OUTSIDE RECORDS SUMMARY | 2024-08-24 11:59 | XMS_ITS | Clinical Summary ---
Author Organization [facility] Address [address] [place] [address] Care Team Providers Care Concrete Floater Name Role Phone Soren Mart MD Primary Care Provider [phone] Allergies No known active allergies Medications ondansetron (ZOFRAN ODT) 4 mg Tablet, Rapid DissolveIndication s:Nausea Place 1 tab on top of tongue and let dissolve every 8 hours prn nausea.. 32 Tablet 3 7 Active mometasone-formote rol (DULERA) 100-5 mcg/actuation inhaler LOT:[id number] EX:11/2017 QTY:1 BOX. 1 Gram 7 Active [...] Encounters Date Type Department Care Team Description 08/21/2024 External Device Data STL ABSTRACTION Provider, Abstract 08/20/2024 External Device Data ST[facility] ABSTRACTION Provider, Abstract 08/18/2024 External Device Data ST[facility] ABSTRACTION Provider, Abstract 08/05/2024 9:07 AM EVALUATION MANAGER - 08/05/2024 11:59 PM EVALUATION MANAGER Hospital Encounter [facility] [address] [place] [address] Jaydon Chase MD Discharge Disposition: [...] on file Legal Sex Female 3:43 AM EVALUATION MANAGER Gender Identity Not on file Sexual [...] 113.4 kg (250 lb) 07/12/2020 4:03 PM EVALUATION MANAGER Height 162.6 cm (5' 4 ) 07/12/2020 4:03 PM EVALUATION MANAGER Body Mass Index 42.91 07/12/2020 4:03 PM EVALUATION MANAGER Plan of Treatment Health Maintenance Due Date [...] UP PER FETUS Routine 08/05/2024 9:53 AM EVALUATION MANAGER Encounter for ultrasound to assess growth Obesity during , antepartum CERV/VAG CYTO SCREEN PAP RLFX HPV Routine 11/02/2015 12:00 AM CDT from Last 3 Months or Most Recently Relevant to Health Maintenance Results * US OB FOLLOW UP PER FETUS (08/05/2024 9:53 AM EVALUATION MANAGER) Anatomical Region Laterality Modality Pelvis Ultrasound 08/05/2024 9:32 AM EVALUATION MANAGER Narrative 08/05/2024 9:57 AM EVALUATION MANAGER STL FOLLOW UP ----- Pat. Name: ANNI BRYANT Study Date: 08/05/2024 9:32am Pat. NO: [id number] Referring MD: JAYDON CHASE MD Site: [facility] Helper: Bri Toledo RDMS : 1990 Age: 34 [...] Weeks of gestation O99.213: Obesity complicating Procedures 13681: Ultrasound, uterus, real time with image documentation, [...] 5 lb 8 oz EFW by Hadlock ([id number]) Head / Face / Neck Biometry: Social Research Assistant 5.3 mm Extremities / Bony Struc Biometry: [...] and date of were verified by the patient accounting representative prior to the exam IMPRESSION ----- 1. [...] Pat. Name:Eladia BRYANT Date:08/05/2024 9:32am Pat. NO: [id number] :JAYDON CHASE MD [facility]Bri Toledo RDMS :1990Age:34 ----- INDICATION ----- Maternal Care for Low Transverse Scar from Previous Delivery (Previous ) Maternal Obesity (BMI<40) Complicating Screening, Other Specified CODING ----- Diagnoses Z3A.33: Weeks of gestation Z36.89: Encounter to establish gestational ageusing ultrasound O99.213: Obesity complicating O34.211: Maternal care for low transverse scarfrom previous delivery Z36.3: Encounter for screening formalformations Z3A.33: Weeks of gestation O99.213: Obesity complicating Procedures 67574: Ultrasound, uterus, real time withimage documentation, follow up, transabdominal approach per fetus HISTORY ----- OB History 2. Para 1 T1L1 MATERNAL ASSESSMENT ----- Physical Exam Initial weight 95 kg, 210 lb. Initial BMI 37.20kg/m METHOD ----- Transabdominal ultrasound examination ----- Holt . Number of fetuses: 1 DATING ----- GA by prior [id number] w + 3 d ANA by prior [...] 5 lb 8 oz EFW by Hadlock ([id number]) Head / Face / Neck Biometry: Social Research Assistant 5.3mm Extremities / Bony Struc Biometry: FL [...] and date of were verified by the patient accounting representative prior tothe exam IMPRESSION ----- 1. Single [...] of this patient. us Jaydon Chase MD ORDERABLES Final Result * CERV/VAG CYTOPATH, THIN PREP IMAGR RFLX HPV (CP) (11/02/2015 12:00 AM CDT) CLINICAL INFORMATION [facility] Comment: Routine exam WELL WOMAN EXAM LAST MENSTRUAL PERIOD [facility] Comment:10/05/15 PREV PAP: [facility] Extended [facility] Comment:Information not prov ided PREV BX: [employer] [facility] Comment:Information not prov ided SOURCE [facility] Comment:[employer] ADEQUACY: [employer] [facility] Comment: Satisfactory for evaluation. Endocervical/transformation zone component present. INTERPRETATION [facility] Comment:Negative for intraep ithelial lesion or malignancy. CYTOLOGY INFECTION Q U[facility] Comment: Shift in vaginal maureen suggestive of bacterial vaginosis. COMMENT [facility] Comment: This Pap test has been evaluated with computer assisted technology. INTELLECTUAL PROPERTY COUNSEL: TAURUS RODRIGUEZ [facility] Comment: MLO, CT(ASCP) CT screening location: [place] [address] [place] [address] Test Performed at: [facility] [address] [place] [address] DEBBIE CHOPRA MD 11/02/2015 Delphine Ospina Hart BUYER TOBACCO HEAD PATHOLOGY/CYTOLOGY ORDERABLES F inal Result [facility] [place] [address] from Last 3 Months or Most Recently Relevant to Health Maintenance [place] [address] [place] [address] PLAN MEDICAID Advance Directives For more information, please contact: [phone] * Full Code (Latest Code Status on File) Date Activated Date Inactivated Comments 12/21/2013 9:08 PM 12/22/2013 6:32 PM Care Teams Concrete Floater Relationship Specialty Start Date End Date Soren Mart MD PCP - General 02/10/09
--- OUTSIDE RECORDS SUMMARY | 2024-08-24 11:59 | XMS_ITS | Encounter Summary ---
Author Organization [facility] Address 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
--- OUTSIDE RECORDS SUMMARY | 2024-08-24 11:59 | XMS_ITS | Encounter Summary ---
Author Organization [facility] Address 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
--- OUTSIDE RECORDS SUMMARY | 2024-08-24 11:59 | XMS_ITS | Encounter Summary ---
Author Organization [facility] Address 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 LAB ORDERS: Order number: [id number] Test Ordered: REMOVE CERUMEN IMPACT [id number] 682.0-OTHER CELLULITIS AND ABSCESS ASSESSMENT: advised warm [...] on filedocumented in this encounter Care Teams Professional Caster Relationship Specialty Start Date End Date Soren Mart MD PCP - General 02/10/09 documented as of this encounter
--- OUTSIDE RECORDS SUMMARY | 2024-08-24 11:59 | XMS_ITS | Encounter Summary ---
Author Organization [facility] Address [address] [place] [address] Care Team Providers Care Regional Account Manager Name Role Phone Soren Mart MD Primary Care Provider [phone] Encounter Details Date Type Department Care Team (Late st Contact Info) Description 04/06/2007 Orders Only [facility] Internal Medicine [address] [address] Inge Hutson MD NO ADDRESS ON FILE Social History Tobacco Use Types Packs/Day Years Used Date Smoking Tobacco: Never Assessed Comments Unknown Sex and Gender Information Value Date Recorded Sex Assigned at Not on file Legal Sex Female 3:43 AM RN HOME CARE Gender Identity Not on file Sexual Orientation Not on file documented as of this encounter Progress Notes * Inge Hutson MD - 10/30/2007 1:35 PM CDT TIME:08:59 am PATIENT`S HOME PHONE: PATIENT`S WORK PHONE: PATIENT`S INSURANCE: [facility] WHO TOOK THE CALL: Amelia Lee R GENERAL INFORMATION ALTERNATIVE PHONE NUMBER: [phone] or Amelia at work WHO CALLED: Patient`s mother called. CURRENT ALLERGY LIST: NO KNOWN DRUG ALLERGY PHARMACY NUMBER: [phone] PROBLEMS: feeling bad , achy FEVER: Patient [...] on filedocumented in this encounter Care Teams Regional Account Manager Relationship Specialty Start Date End Date Soren Mart MD PCP - General 02/10/09 documented as of this encounter
--- OUTSIDE RECORDS SUMMARY | 2024-08-24 11:59 | XMS_ITS | Encounter Summary ---
Author Organization [employer] Address [address] [place] [address] Care Team Providers Care Automation Controls Specialist Name Role Phone Soren Mart MD Primary Care Provider [phone] Encounter Details Date Type Department Care Team (Late st Contact Info) Description 03/14/[address] [facility] Support Serv. (Peds Cardiology-[place]) [address] [facility] 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
--- OUTSIDE RECORDS SUMMARY | 2024-08-24 11:59 | XMS_ITS | Encounter Summary ---
Author Organization [employer] Address [address] [place] [address] Care Team Providers Care Radiology Equipment Servicer Name Role Phone Soren Mart MD Primary [...] on file Legal Sex Female 3:43 AM STOCK ROLLER Gender Identity Not on file Sexual Orientation Not on file documented as of this encounter Plan of Treatment Not on file documented as of this encounter Procedures Procedure Name Priority Date/Time Associated Diagnosis Comments POC , URINE Routine 06/05/2006 9:20 AM STOCK ROLLER HEMOGLOBIN AND HEMATOCRIT Routine 06/05/2006 9:11 AM STOCK ROLLER documented in this encounter Results * POC , URINE (06/05/2006 9:20 AM STOCK ROLLER) , URINE POC Negative Negative INTERFACE SYSTEM 06/05/2006 9:20 AM STOCK ROLLER us David Guillermo MD POINT OF CARE TESTING Final Result INTERFACE SYSTEM Refer to clinic/hospital department * HEMOGLOBIN AND HEMATOCRIT (06/05/2006 9:11 AM STOCK ROLLER) HEMOGLOBIN 13.3 11.8 - 14.8 g/dL INTERFACE SYSTEM HEMATOCRIT 39.0 35.5 - 44.0 % INTERFACE SYSTEM 06/05/2006 9:11 AM STOCK ROLLER us David Guillermo MD HEMATOLOGY ORDERABLES Final Result INTERFACE SYSTEM Refer to clinic/hospital department documented in this encounter Visit Diagnoses Diagnosis Chronic tonsillitis- Primary documented in this encounter Care Teams Radiology Equipment Servicer Relationship Specialty Start Date End Date Soren Mart MD PCP - General 02/10/09 documented as of this encounter
--- OUTSIDE RECORDS SUMMARY | 2024-08-24 11:59 | XMS_ITS | Referral Summary ---
Author Organization [facility] Address [address] [place] [address] Care Team Providers Care Jordan Man Name Role Phone Joy Gardner GWEN-GUZZLER BUILDER Primary Care Provider + Source Comments [facility],non-[facility] Affiliates and Associated Physician Practices is amultiple site organization consisting of ambulatory clinics and hospital sitesin [place], [place], [place] and [place]. This disclosure is being madepursuant to the Care Everywhere program and may not contain all information available regarding this patient. Last updated [facility] [employer] Allergies No known active allergies Medications * [...] LURIA, FLUZONE TRIVALENT; 6MO+) (IIV3) 04/13/2016,04/14/2014,05/21/2010 Covid HereOrThere primary monoval ent 12+ yr 0.3mL Purple [...] Not on file Administered Medications Care Teams Jordan Man Relationship Specialty Start Date End Date Joy Gardner APRN-CNP [address] [address] PCP - General 02/13/21
--- OUTSIDE RECORDS SUMMARY | 2024-08-24 11:59 | XMS_ITS | Clinical Summary ---
Author Organization [facility] Address [address] [place] [address] Phone Care Team Providers Care Scallop Cutter Machine Name Role Phone Denny Norman MD Primary Care Provider [phone] Allergies No known active allergies Medications prazosin [...] drink = 0.6 oz pur e alcohol) [employer] Answer Date Recorded In the past 12 months has [employer], [employer], oil, or water [employer] threatened to shut off services in your [...] 11/20/2023 How often do you attend [facility] or hindu services? Patient declined 11/20/2023 Do you belong to any clubs o r organizations such as muslim groups, unions, fraternal or athletic groups, or [...] medical care, and heating? Patient declined 11/20/2023 [facility] - Occupational Stress Questionnaire Answer Date Recorded [...] place to sleep or slept in a group home (including now)? No 11/20/2023 Education Answer Date Recorded What is the highest level of school you have completed or the highest degree you have received? Associate degree: academic program 01/08/2023 Sexually Active Control Partners Comments Yes None Male Comments No Sex and Gender Information Value Date Recorded Sex Assigned at Female 07/09/2023 12:53 PM NURSE ORTHOPAEDIC Legal Sex Female 1:59 PM CDT Gender Identity Female 07/09/2023 12:53 PM NURSE ORTHOPAEDIC Sexual Orientation Straight 07/09/2023 12 :53 PM NURSE ORTHOPAEDIC Last Filed Vital Signs Vital Sign Reading [...] LAB - MISCELLANEOUS 06/09/2024 1 2:00 AM NURSE ORTHOPAEDIC COMPLETE BLOOD COUNT (CBC) WITH DIFF 06/03/2024 12:00 AM NURSE ORTHOPAEDIC LAB - MISCELLANEOUS 06/03/2024 1 2:00 AM NURSE ORTHOPAEDIC HEPATITIS C ANTIBODY 02/24/2024 12:00 AM CDT HUMAN PAPILLOMA VIRUS (HPV) Routine 02/21/2023 2:35 PM CDT Well woman exam with routine gynecological exam PATHOLOGY CYTOLOGY BOTTLE WASHER MACHINE Routine 02/21/2023 2:35 PM CDT Well woman exam with routine gynecological exam from Last 3 Months or Most Recently Relevant to Health Maintenance Results * LAB - MISCELLANEOUS (06/09/2024 12:00 AM NURSE ORTHOPAEDIC) Only the most recent of2 resultswithin the time period is included. 06/09/2024 us Provider Scan CHEMISTRY ORDERABLES Final Resul t SCAN * COMPLETE BLOOD COUNT (CBC) WITH DIFF (06/03/2024 12:00 AM NURSE ORTHOPAEDIC) 06/03/2024 us Provider Scan HEMATOLOGY ORDERABLES Final Resu lt SCAN * HEPATITIS C ANTIBODY (02/24/2024 12:00 AM CDT) 02/24/2024 us Provider Scan CHEMISTRY ORDERABLES Final Resul t SCAN * PATHOLOGY CYTOLOGY BOTTLE WASHER MACHINE (02/21/2023 2:35 PM CDT) SPECIMEN ADEQUACY Satisfactory for evaluation. Endocervical/transf ormation zone component is present. 03/11/2023 3:22 PM CDT [facility] GENERAL CATEGORY EPITHELIAL CELL ABNORMALITY. 03/11/2023 3:22 PM CDT [facility] DESCRIPTIVE DIAGNOSIS ASCUS: Atypical squamous cells of undetermined significance. 03/11/2023 3:22 PM CDT [facility] R FINDINGS Fungal organisms present, morphologically consistent with Ricarda species. 03/11/2023 3:22 PM CDT [facility] Automated Examination Analysis of this sample has been assisted by an automated imaging and review system ([employer] System, [employer], [place], [place]). This case is further evaluated and finalized by a data sme and/or pathologist. 03/11/2023 3:22 PM CDT [facility] Disclaimer The PAP smear is [...] unless clinically indicated. 03/11/2023 3:22 PM CDT [facility] Other CERVIX UTERI STRUCTURE / Unknown Non-Phlebotomy Collection / Unknown 02/21/2023 2:35 PM CDT 02/21/2023 2:35 PM CDT us Amelia Beard APRN, CNP PATHOLOGY/CYTOLOGY ORDER ADAM Final Result [facility] [address] [place] [address], [place] * (ABNORMAL) HUMAN PAPILLOMA VIRUS (HPV) (02/21/2023 2:35 PM CDT) HPV OTHER HIGH RISK TYPES, PCR POSITIVE(A) NEGATIVE 02/25/2023 7:37 AM CDT [facility] Comment: Positive for one or more of the following Other High HPV types: 31, 33, 35, 39, 45, 51, 52, 56, 58, 59, 66, and 68. False-positive results have been reported with molecular assays. If these positive results are discordant with clinical/cytohistologic findings, repeat testing may be considered after an appropriate interval. HPV TYPE 16 NEGATIVE NEGATIVE 02/25/2023 7:37 AM CDT [facility] Comment: A negative high-risk HPV [...] 18 NEGATIVE NEGATIVE 02/25/2023 7:37 AM CDT [facility] Comment: A negative high-risk HPV [...] OR DIAGNOSTIC SCREENING 02/25/2023 7:37 AM CDT [facility] Other Non-Phlebotomy Collection / Unknown 02/21/2023 2:35 PM CDT 02/21/2023 2:35 PM CDT Narrative [facility] - 02/25/2023 7:37 AM CDT Performed by Real-Time Polymerase Chain Reaction (PCR) on the Caryl Marcellus 4800. This assay has been validated for use with post-aliquot samples from the [employer] T5000 processor. us Amelia Beard NAILER HAND, CQ DEVELOPER LAB SEND OUTS Final Re sult [facility] [address] [place] [address], from Last 3 Months or Most Recently Relevant to Health Maintenance Insurance MEDICAID [employer] Care Teams Scallop Cutter Machine Relationship Specialty Start Date End Date Denny Norman MD [address] [place] [address] PCP - General Family Medicine 01/08/23
--- OUTSIDE RECORDS SUMMARY | 2024-08-24 11:59 | XMS_ITS | Continuity of Care Document ---
Author Organization [facility] Address [address] [facility] [address] [place] [address] Phone Care Team Providers Care Cd Manufacturing Supervisor Name Role Phone Maia Horner Unavailable Unavailable Advance Directives Directive Yes / No Effective Date File Name No Information Encounters Encounter Description Practice Location Reason(s) For Visit Diagnoses Date Provider Providers Copied on Encounter [facility], [address] [place] [address] [address], [place], [place], [id number], [place] tel:[phone] [facility] No Information May-0 9-200 0 Siri Carvalho. [address] , [address], [place], [address], [place]. tel:[phone] Family History Family Member Type Diagnosis Age [...]
--- OUTSIDE RECORDS SUMMARY | 2024-08-24 11:59 | XMS_ITS | Patient Health Summary ---
Author Organization [facility] Address [address] [facility] [place] [address] Care Team Providers Care Snowboard Designer Name Role Phone Joy Gardner GWEN-TREATMENT TECHNICIAN Primary Care Provider + Note from [facility],non-owned Affiliates and Associated Physician Practices is amultiple site organization consisting of ambulatory clinics and hospital sitesin [place], [place], [place] and [place]. This disclosure is being madepursuant to the Care Everywhere program and may not contain all information available regarding this patient. Last updated 18.[facility] Allergies No known active allergies [...] 39.36 03/08/2021 1:33 PM CDT Procedures * NM MULTIPLE SLEEP LATENCY TEST(Performed 02/23/2021) Performed for Daytime hypersomnia, Obesity (BMI 30-39.9), Excessive daytime sleepiness, Chronic fatigue, Chronic insomnia, Inadequate sleep hygiene * NM POLYSOM 6/> YRS 4/> GOKUL(Performed 02/22/2021) Performed [...] sleepiness, Chronic fatigue, Chronic insomnia Results * NM MULTIPLE SLEEP LATENCY TEST (02/23/2021 11:28 AM CDT) Bert Narvaez MD - 02/23/2021 11:28 AM CDT Bert Graham MD 02/23/2021 11:32 AM Evy OLMEDO PROCEDUR E/MINOR SURGICAL ORDERABLES * NM POLYSOM 6/> YRS 4/> GOKUL (02/22/2021 12:48 PM CDT) Bert Narvaez MD - 02/22/2021 12:48 PM CDT Bert Graham MD 02/22/2021 12:50 PM [facility] Accredited by the [place] [employer] Medicine [facility], First Floor [address] [place] [address]. [place] [address] Telephone : [phone] Medical Records Patient Name: Bel Lee : 1990 Date of Study: 02/20/2021 Referring Physician: NA Holm Type of Montage: Respiratory Scoring System: [facility] FULL NIGHT DIAGNOSTIC POLYSOMNOGRAM INTERPRETATION (02/20/2021) Procedure: The polysomnogram was performed with a ct mri technologist in attendance. Central, occipital, and temporal [...] oral appliance device trial Bert Graham MD, [facility], [facility], [facility] Power Technician, [facility] Professor of Internal Medicine Adjunct Brick Loader of Neurology Division of Pulmonary, Critical Care, and Sleep Medicine [facility] This note was electronically signed on [...] 154 ng/mL [facility] Comment: Test Performed at: [facility] [address] [place] [address] ZURDO COMBS DO,MPH Blood BLOOD SPECIMEN / Unknown 02/20/2021 3:15 PM CDT 02/20/2021 3:16 PM CDT Evy OLMEDO LAB - CH EMISTRY ORDERABLES [facility] [address] [place] [address] * METHYLMALONIC ACID BLOOD (02/20/2021 3:15 PM CDT) Methylmalonic Acid 205 87 - 318 nmol/L [facility] Comment: This test was developed and its analytical performance characteristics have been determined by [employer] [place], [place]. It has not been cleared or approved by the U.S. Food and Drug Administration. This assay has been validated pursuant to the CLIA regulations and is used for clinical purposes. Test Performed at: [facility] [id number] [place] [address] LUCINDA LAU MD,PHD Blood BLOOD SPECIMEN / Unknown 02/20/2021 3:15 PM CDT 02/20/2021 3:16 PM CDT Evy Perez APNP-TREATMENT TECHNICIAN LAB - CH EMISTRY ORDERABLES [facility] [address] [place] [address] * VITAMIN D 25-HYDROXY (02/20/2021 3:15 PM [...] D, (D2,D3), LC/MS/MS is recommended: order code [id number] (patients >2yrs). See Note 1 Note 1 For additional information, please refer to http://education.[employer]/faq/PUJ988 (This link is being provided for informational/ educational purposes only.) REPORT COMMENT: FASTING:NO Test Performed at: [facility] [address] [place] [address] ZURDO COMBS DO,MPH Blood BLOOD SPECIMEN / Unknown 02/20/2021 3:15 PM CDT 02/20/2021 3:16 PM CDT Evy Ramone Chris [facility] LAB - CH EMISTRY ORDERABLES Performing Organization Address [facility] de Phone Number [facility] [address] [place] [address] * (ABNORMAL) CBC W/O DIFFERENTIAL (02/20/2021 3:15 PM CDT) Pathologist [facility] White Blood Cell Count 9.4 3.8 - [...] 12.5 fL [facility] Comment: Test Performed at: [facility] [address] ZURDO COMBS DO,MPH Blood BLOOD SPECIMEN / Unknown 02/20/2021 3:15 PM CDT 02/20/2021 3:16 PM CDT Evy Ramone Chris [facility] LAB - HE MATOLOGY ORDERABLES Performing Organization Address [facility] de Phone Number [facility] [address] [place] [address] * BASIC METABOLIC PANEL (CALCIUM TOTAL) (02/20/2021 3:15 PM CDT) [facility] Glucose 90 65 - 139 mg/dL [facility] [...] 10.2 mg/dL [facility] Comment: Test Performed at: [employer] [place] [place] [address] ZURDO COMBS DO,MPH Blood BLOOD SPECIMEN / Unknown 02/20/2021 3:15 PM CDT 02/20/2021 3:16 PM CDT Evy A [facility] LAB - CH EMISTRY ORDERABLES Performing Organization Address [facility] Co de Phone Number [facility] [id number] [place] [address] * FOLATE (02/20/2021 3:15 PM CDT) Pathologist [facility] Folate 12.4 ng/mL [facility] Comment: Reference Range Low: <3.4 Borderline: 3.4-5.4 Normal: >5.4 Test Performed at: [employer] [facility] [place] [address] ZURDO COMBS DO,MPH Blood BLOOD SPECIMEN / Unknown 02/20/2021 3:15 PM CDT 02/20/2021 3:16 PM CDT Evy A [facility] LAB - EMISTRY ORDERABLES Performing Organization Address [facility] de Phone Number [facility] [id number] [place], [place] [address] * VITAMIN B12 (02/20/2021 3:15 PM CDT) [...] pg/mL will have symptoms. Test Performed at: [employer] [facility] [employer] [facility] [place] [address] ZURDO COMBS DO,MPH Blood BLOOD SPECIMEN / Unknown 02/20/2021 3:15 PM CDT 02/20/2021 3:16 PM CDT Evy A Chris APYEIMY-TREATMENT TECHNICIAN LAB - CH EMISTRY ORDERABLES Performing Organization Address [facility] Co de Phone Number [facility] [address] [place] [address] * TSH (02/20/2021 3:15 PM CDT) TSH 1.92 mIU/L [facility] Comment: Reference Range > or = 20 Years 0.40-4.50 Ranges First trimester 0.26-2.66 Second trimester 0.55-2.73 Third trimester 0.43-2.91 Test Performed at: [employer] [address] [place] [address] ZURDO COMBS DO,MPH Blood BLOOD SPECIMEN / Unknown 02/20/2021 3:15 PM CDT 02/20/2021 3:16 PM CDT Evy A Chris AP-TREATMENT TECHNICIAN LAB - CH EMISTRY ORDERABLES Performing Organization Address City/[facility] Co de Phone Number [facility] [address] [place] [address] Care Teams Snowboard Designer Relationship Specialty Start Date End Date Joy Gardner APRN-CNP [address] [address] PCP - General 02/13/21
--- OUTSIDE RECORDS SUMMARY | 2024-08-24 11:59 | XMS_ITS | Encounter Summary ---
Author Organization [facility] Address [address] [place] [address] Care Team Providers Care Database Developer Name Role Phone Soren Mart MD Primary Care Provider [phone] Encounter Details Date Type Department Care Team (Late st Contact Info) Description 06/24/2006 Orders Only [facility] Internal Medicine [address] [address] Inge Hutson MD NO ADDRESS ON FILE Social History Tobacco Use Types Packs/Day Years Used Date Smoking Tobacco: Never Assessed Comments Unknown Sex and Gender Information Value Date Recorded Sex Assigned at Not on file Legal Sex Female 3:43 AM PEDORTHIST Gender Identity Not on file Sexual Orientation Not on file documented as of this encounter Progress Notes * Inge Hutson MD - 11/10/2007 10:59 AM CDT TIME:04:58 pm PATIENT`S HOME PHONE: PATIENT`S WORK PHONE: PATIENT`S INSURANCE: [facility] [employer] [facility] WHO TOOK THE CALL: Amelia Lee R GENERAL INFORMATION ALTERNATIVE PHONE NUMBER: [phone] or work WHO CALLED: Patient`s mother called. CURRENT ALLERGY LIST: NO KNOWN DRUG ALLERGY PHARMACY NUMBER: [phone] PROBLEMS: feeling terrible, chest tight-wheezing sound, did [...] on filedocumented in this encounter Care Teams Database Developer Relationship Specialty Start Date End Date Soren Mart MD PCP - General 02/10/09 documented as of this encounter
--- OUTSIDE RECORDS SUMMARY | 2024-08-24 11:59 | XMS_ITS | Encounter Summary ---
Author Organization [employer] Address [address] [place] [address] Care Team Providers Care Clocksmith Name Role Phone Soren Mart MD Primary Care Provider [phone] Encounter Details Date Type Department Care Team (Late st Contact Info) Description 01/15/2006 [facility] NO ADDRESS ON FILE Pain in Joint, Ankle and Foot (Primary Dx) Social History Tobacco Use Types Packs/Day Years Used Date Smoking Tobacco: Never Assessed Comments Unknown Sex and Gender Information Value Date Recorded Sex Assigned at Not on file Legal Sex Female 3:[address]PERVISOR Gender Identity Not on file Sexual Orientation Not on file documented as of this encounter Plan of Treatment Not on file documented as of this encounter Visit Diagnoses Diagnosis Pain in joint, ankle and foot- Primary documented in this encounter Care Teams Clocksmith Relationship Specialty Start Date End Date Soren Mart MD PCP - General 02/10/09 documented as of this encounter
--- OUTSIDE RECORDS SUMMARY | 2024-08-24 11:59 | XMS_ITS | Encounter Summary ---
Author Organization [facility] Address [address] [place] [address] Care Team Providers Care Felled Seam Operator Name Role Phone Soren Mart MD Primary Care Provider [phone] Encounter Details Date Type Department Care Team (Late st Contact Info) Description 06/04/2006 Orders Only [facility] Internal Medicine [address] [address] Inge Hutson MD NO ADDRESS ON FILE Social History Tobacco Use Types Packs/Day Years Used Date Smoking Tobacco: Never Assessed Comments Unknown Sex and Gender Information Value Date Recorded Sex Assigned at Not on file Legal Sex Female 3:43 AM SECURITIES COUNSELOR Gender Identity Not on file Sexual [...] NEW PRESCRIPTION, 06/04/2006. LAB ORDERS: Order number: [id number] Test Ordered: HEMOCCULT SINGLE [id number] + PATIENT EDUCATION: Questions were allowed to stated satisfaction. PREVENTIVE COUNSELING The patient was counseled regarding diet. RETURN VISIT : please waive todays co-pay Electronically Signed by: Inge Hutson MD on Wednesday, June 07, 2006 documented in this encounter Plan of Treatment Not on file documented as of this encounter Visit Diagnoses Not on filedocumented in this encounter Care Teams Felled Seam Operator Relationship Specialty Start Date End Date Soren Mart MD PCP - General 02/10/09 documented as of this encounter
--- OUTSIDE RECORDS SUMMARY | 2024-08-24 11:59 | XMS_ITS | Encounter Summary ---
Author Organization [email or web address] [facility] Address [address] [place] [address] Care Team Providers Care Horticultural Nursery Assistant Name Role Phone Soren Mart MD Primary Care Provider [phone] Encounter Details Date Type Department Care Team (Late st Contact Info) Description 02/27/2012 Chart Note [facility] Services [place] [address] [facility] [address] [place] [address] Radha Mcallister, Physical Therapist Social History Tobacco Use Types Packs/Day Years Used Date Smoking Tobacco: Never Smokeless Tobacco: Never Alcohol Use Standard Drinks/Week Comments No 0 (1 standard drink = 0.6 oz pur e alcohol) Comments No Sex and Gender Information Value Date Recorded Sex Assigned at Not on file Legal Sex Female 3:43 AM COMBINE MECHANIC Gender Identity Not on file Sexual Orientation [...] you for this referral. Radha Mcallister P.T[facility] [address] [place] [address]. [address] [place] [address] documented in this encounter Plan of Treatment Not on file documented as of this encounter Visit Diagnoses Not on filedocumented in this encounter Care Teams Horticultural Nursery Assistant Relationship Specialty Start Date End Date Soren Mart MD PCP - General 02/10/09 documented as of this encounter
--- OUTSIDE RECORDS SUMMARY | 2024-08-24 11:59 | XMS_ITS | Encounter Summary ---
Author Organization [employer] Address [address] [place] [address] Care Team Providers Care Track Vehicle Repairer Name Role Phone Soren Mart MD Primary Care Provider Encounter Details Date Type Department Care Team (Latest Contact Info) Description 02/06/2009 Outpatient Historical HIS IMG[facility] Soren Mart MD [address] [place] [address] Head Injury, Unspecified Social History Tobacco Use Types Packs/Day Years Used Date Smoking Tobacco: Never Alcohol Use Standard Drinks/Week Comments Not Asked 0 (1 standard drink = 0.6 oz pur e alcohol) Comments No Sex and Gender Information Value Date Recorded Sex Assigned at Not on file Legal Sex Female 3:43 AM CHIEF RESOURCE OFFICER Gender Identity Not on file Sexual Orientation Not on file documented as of this encounter Plan of Treatment Not on file documented as of this encounter Visit Diagnoses Diagnosis Head injury, unspecified documented in this encounter Care Teams Track Vehicle Repairer Relationship Specialty Start Date End Date Soren Mart MD PCP - General 02/10/09 documented as of this encounter
--- OUTSIDE RECORDS SUMMARY | 2024-08-24 11:59 | XMS_ITS | Encounter Summary ---
Author Organization [facility] Address 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 CURRENT ALLERGY LIST: NO KNOWN DRUG ALLERGY PHARMACY NUMBER: [phone] PROBLEMS: CONGESTION: Patient complains of congestion. COUGH:Patient [...] on filedocumented in this encounter Care Teams Lumber Trimmer Relationship Specialty Start Date End Date Soren Mart MD PCP - General 02/10/09 documented as of this encounter
--- OUTSIDE RECORDS SUMMARY | 2024-08-24 11:59 | XMS_ITS | Encounter Summary ---
Author Organization [facility] Address [address] [place] [address] Phone Care Team Providers Care House Moving Supervisor Name Role Phone Denny Norman MD Primary Care Provider [phone] Encounter Details Date Type Department Care Team (Late st Contact Info) Description 01/02/2023 Telephone [facility] [address] [place] [address] Provider, None [place] Social History Tobacco Use Types Packs/Day Years Used Date Smoking Tobacco: Never Assessed Comments Unknown Sex and Gender Information Value Date Recorded Sex Assigned at Female 07/09/2023 12:53 PM SKIP OPERATOR Legal Sex Female 1:59 PM CDT Gender Identity Female 07/09/2023 12:53 PM SKIP OPERATOR Sexual Orientation Straight 07/09/2023 12 :53 PM SKIP OPERATOR documented as of this encounter Miscellaneous [...] see someone other than physician, such as CERTIFIED PROFESSIONAL C[place], resident? yes Patient reason for appointment/any current symptoms: establish care med refills Other information (including need for cloth presser): no documented in this encounter Plan of Treatment Not on file documented as of this encounter Visit Diagnoses Not on filedocumented in this encounter Care Teams House Moving Supervisor Relationship Specialty Start Date End Date Denny Norman MD [address] [address] PCP - General Family Medicine 01/08/23 documented as of this encounter
--- OUTSIDE RECORDS SUMMARY | 2024-08-24 11:59 | XMS_ITS | Encounter Summary ---
Author Organization [employer] Address [address] [place] [address] Care Team Providers Care Card Brusher Name Role Phone Soren Mart MD Primary Care Provider [phone] Encounter Details Date Type Department Care Team (Late st Contact Info) Description 08/21/2024 External Device Data STL ABSTRACTION [...] on file Legal Sex Female 3:43 AM SAND CONDITIONER MACHINE Gender Identity Not on file Sexual Orientation Not on file Occupation Industry Job Start Date Job End Date Not on file Not on file Not on file Not on file documented as of this encounter Plan of Treatment Not on file documented as of this encounter Visit Diagnoses Not on filedocumented in this encounter Care Teams Card Brusher Relationship Specialty Start Date End Date Soren Mart MD PCP - General 02/10/09 documented as of this encounter
--- OUTSIDE RECORDS SUMMARY | 2024-08-24 11:59 | XMS_ITS | Encounter Summary ---
Author Organization [facility] Address [address] [place] [address] Care Team Providers Care Cook 3 Pastry Name Role Phone Soren Mart MD Primary Care Provider Encounter Details Date Type Department Care Team (Late st Contact Info) Description 06/04/2006 Outpatient Historical [facility] Internal Medicine [address] [address] Inge Hutson MD NO ADDRESS ON FILE Social History Tobacco Use Types Packs/Day Years Used Date Smoking Tobacco: Never Assessed Comments Unknown Sex and Gender Information Value Date Recorded Sex Assigned at Not on file Legal Sex Female 3:43 AM MOVEMENT THERAPIST Gender Identity Not on file Sexual Orientation Not on file documented as of this encounter Plan of Treatment Not on file documented as of this encounter Visit Diagnoses Not on filedocumented in this encounter Care Teams Cook 3 Pastry Relationship Specialty Start Date End Date Soren Mart MD PCP - General 02/10/09 documented as of this encounter
--- OUTSIDE RECORDS SUMMARY | 2024-08-24 11:59 | XMS_ITS | Encounter Summary ---
Author Organization [facility] Address [address] [place] [address] Care Team Providers Care Floral Artist Name Role Phone Soren Mart MD Primary Care Provider [phone] Encounter Details Date Type Department Care Team (Late st Contact Info) Description 01/16/2007 Orders Only [facility] Internal Medicine [address] [address] [place] [id number] [address] Social History Tobacco Use Types Packs/Day Years Used Date Smoking Tobacco: Never Assessed Comments Unknown Sex and Gender Information Value Date Recorded Sex Assigned at Not on file Legal Sex Female 3:43 AM SATELLITE COMMUNICATIONS OPERATOR Gender Identity Not on file Sexual Orientation Not on file documented as of this encounter Progress Notes * Denny Mccormick MD - 11/03/2007 10:59 AM CDT TIME:04:12 pm PATIENT`S HOME PHONE: PATIENT`S WORK PHONE: PATIENT`S INSURANCE: [employer] WHO TOOK THE CALL: Amelia Lee R GENERAL INFORMATION WHO CALLED: Patient`s mother called. CURRENT ALLERGY LIST: NO KNOWN DRUG ALLERGY PROBLEMS: all x 2 weeks CONGESTION: Patient complains of sinus congestion, complains of head congestion, complains of chestcongestion, complains of nasal congestion. COUGH:Patient complains of cough. symptoms had improved some, but now rigo in head worse. SECTION 1: REQUESTED ACTION [facility] 01/16/07 at 04:13 pm: MEDICATION REQUEST: Patient wants medications and can not come in. DOCTOR`S RESPONSE: [facility] 01/16/07 at 04:[address] Mccormick MEDICATIONS: Call in to Pharmacy DIFLUCAN ORAL TABLET 150 MG, 1 Every Day, 1 Dispensed, status: NEW PRESCRIPTION, 01/16/2007. MEDROL (SANDRA) ORAL TABLET 4 MG, 1 PACKET ORAL DIRECTED, 1 Dispensed, status: NEW PRESCRIPTION, 01/16/2007. ZITHROMAX Z-SANDRA ORAL TABLET 250 MG, TAKE DIRECTED, 1 Dispensed, status: CONTINUED, 01/16/2007. also steam inhalations FINAL ACTION: [facility] 01/16/07 at 04:15 pm Spoke with patient 01/16/07 at 04:15 pm. mom printed script Electronically Signed by: Maribeth Sanchez on Friday, April 06, 2007 documented in this encounter Plan of Treatment Not on file documented as of this encounter Visit Diagnoses Not on filedocumented in this encounter Care Teams Floral Artist Relationship Specialty Start Date End Date Soren Mart MD PCP - General 02/10/09 documented as of this encounter
--- OUTSIDE RECORDS SUMMARY | 2024-08-24 11:59 | XMS_ITS | Encounter Summary ---
Author Organization [employer] Address [address] [place] [address] Care Team Providers Care Concrete Curer Name Role Phone Soren Mrat MD Primary Care Provider [phone] Encounter Details Date Type Department Care Team (Late st Contact Info) Description 12/27/2006 Outpatient Historical [facility] Inge Hutson MD NO ADDRESS ON FILE Disturbance of Skin Sensation (Primary Dx) Social History Tobacco Use Types Packs/Day Years Used Date Smoking Tobacco: Never Assessed Comments Unknown Sex and Gender Information Value Date Recorded Sex Assigned at Not on file Legal Sex Female 3:43 AM HEAVY FORGER Gender Identity Not on file Sexual Orientation [...] HEMATOLOGY ORDERABLES Ed ited Performing Organization Address City/State/[facility] Co de Phone Number INTERFACE SYSTEM [...] HEMATOLOGY ORDERABLES Ed ited Performing Organization Address [facility] Phone Number INTERFACE SYSTEM Refer to clinic/hospital department * HEMOGLOBIN A1C (12/27/2006 12:31 PM CDT) HEMOGLOBIN A1C 5.4 4.1 - 6.1 % of Hgb INTERFACE SYSTEM GLUCOSE, MEAN BLOOD 115 mg/dL INTERFACE SYSTEM 12/27/2006 12:3 1 PM CDT us Inge Hutson MD CHEMISTRY ORDERABLES Darrel juan Performing Organization Address [facility] Phone Number INTERFACE SYSTEM Refer to clinic/hospital department * TSH (12/27/2006 12:31 PM CDT) TSH 1.50 0.27 - 4.20 uU/mL INTERFACE SYSTEM 12/27/2006 12:3 1 PM CDT us Inge Hutson MD CHEMISTRY ORDERABLES Darrel juan Performing Organization Address [facility] Phone Number INTERFACE SYSTEM Refer to [...] CHEMISTRY ORDERABLES Darrel juan Performing Organization Address [facility] Phone Number INTERFACE SYSTEM Refer to clinic/hospital department * FERRITIN (12/27/2006 12:31 PM CDT) FERRITIN 39 13 - 150 ng/mL INTERFACE SYSTEM 12/27/2006 12:3 1 PM CDT us Inge Hutson MD CHEMISTRY ORDERABLES Darrel juan Performing Organization Address City/[facility] Co de Phone Number INTERFACE SYSTEM [...] and non- Americans is available on the [facility] Intranet at: [email or web address] Select: Lab Policies and Procedures Select: Reference Ranges - GFR 12/27/2006 12:3 1 PM CDT Inge Hutson MD CHEMISTRY ORDERABLES Darrel juan Performing Organization Address City/[facility] Co de Phone Number INTERFACE SYSTEM Refer to clinic/hospital department documented in this encounter Visit Diagnoses Diagnosis Disturbance of skin sensation- Primary documented in this encounter Care Teams Concrete Curer Relationship Specialty Start Date End Date Soren Mart MD PCP - General 02/10/09 documented as of this encounter
--- OUTSIDE RECORDS SUMMARY | 2024-08-24 11:59 | XMS_ITS | Encounter Summary ---
Author Organization [facility] Address [address] [place] [address] Care Team Providers Care Vacuum Frame Operator Name Role Phone Soren Mart MD Primary Care Provider Encounter Details Date Type Department Care Team (Late st Contact Info) Description 06/04/2006 Outpatient Historical [facility] Internal Medicine [address] [address] Inge Hutson MD NO ADDRESS ON FILE Social History Tobacco Use Types Packs/Day Years Used Date Smoking Tobacco: Never Assessed Comments Unknown Sex and Gender Information Value Date Recorded Sex Assigned at Not on file Legal Sex Female 3:43 AM CASINO ATTENDANT Gender Identity Not on file Sexual Orientation Not on file documented as of this encounter Plan of Treatment Not on file documented as of this encounter Visit Diagnoses Not on filedocumented in this encounter Care Teams Vacuum Frame Operator Relationship Specialty Start Date End Date Soren Mart MD PCP - General 02/10/09 documented as of this encounter
--- OUTSIDE RECORDS SUMMARY | 2024-08-24 11:59 | XMS_ITS | Encounter Summary ---
Author Organization [facility] Address [address] [place] [address] Care Team Providers Care Mobile Sales Consultant Name Role Phone Soren Mart MD Primary Care Provider Encounter Details Date Type Department Care Team (Late st Contact Info) Description 08/24/2007 Outpatient Historical [facility] Internal Medicine [address] [address] Soren Mart MD [address] [place] [address] Social History Tobacco Use Types Packs/Day Years Used Date Smoking Tobacco: Never Assessed Comments Unknown Sex and Gender Information Value Date Recorded Sex Assigned at Not on file Legal Sex Female 3:43 AM DISK AND TAPE MACHINE TENDER Gender Identity Not on file Sexual Orientation Not on file documented as of this encounter Plan of Treatment Not on file documented as of this encounter Visit Diagnoses Not on filedocumented in this encounter Care Teams Mobile Sales Consultant Relationship Specialty Start Date End Date Soren Mart MD PCP - General 02/10/09 documented as of this encounter
--- OUTSIDE RECORDS SUMMARY | 2024-08-24 11:59 | XMS_ITS | Encounter Summary ---
Author Organization [facility] Address 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
--- OUTSIDE RECORDS SUMMARY | 2024-08-24 11:59 | XMS_ITS | Clinical Summary ---
Author Organization [facility] Address [address] [place] [address] Care Team Providers Care Claim Benefit Specialist Name Role Phone Joy Gardner GWEN-GENERAL WAREHOUSE ASSOCIATE Primary Care Provider + Source Comments [facility],non-owned Affiliates and Associated Physician Practices is amultiple site organization consisting of ambulatory clinics and hospital sitesin [place], [place], [place] and [place]. This disclosure is being madepursuant to the Care Everywhere program and may not contain all information available regarding this patient. Last updated 18.[facility] [place] Allergies No known active allergies Medications * [...] LURIA, FLUZONE TRIVALENT; 6MO+) (IIV3) 04/13/2016,04/14/2014,05/21/2010 Covid [employer] primary monoval ent 12+ yr 0.3mL Purple [...] age to complete this topic Care Teams Claim Benefit Specialist Relationship Specialty Start Date End Date Joy Gardner APRN-CNP [address] [address] PCP - General 02/13/21
--- OUTSIDE RECORDS SUMMARY | 2024-08-24 11:59 | XMS_ITS | Encounter Summary ---
Author Organization [employer] Address 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 Please refer to surgeon s operative report for specific details. Dictated by: RADIOLOGY, DEPARTMENT O Electronically signed by: RADIOLOGY, DEPARTMENT 10/01/2008 11:39 Transcribed: 10/01/2008 07:42 AMK Procedure Note Radiology, Radiologist - 10/01/2008 [address] [address] [address] [place], [place] [address] Admit Date: 09/23/2008 ANNI BRYANT Sex: F Admit Prov: ELMO REICH Date: 1990 Primary Care Prov: CMRN: [id number] [id number] IM[facility]ING SERVICES Ordering Prov: ELMO REICH Interpretation [...] AM CDT) , URINE POC Negative Negative [facility] Urine specimen (specimen) 09/23/2008 10:00 AM CDT 09/23/2008 10:00 AM CDT Elmo Reich MD POINT OF CARE TESTING Final Re sult Performing Organization Address City/[facility] de Phone Number INTERFACE SYSTEM Refer to clinic/hospital department [facility] CLIA# [id number] [address] [place] [address] * HEMOGLOBIN AND HEMATOCRIT (09/23/2008 9:50 AM CDT) HEMOGLOBIN 12.3 11.8 - 14.8 g/dL [facility] HEMATOCRIT 37.5 35.5 - 44.0 % [facility] Blood specimen (specimen) 09/23/2008 9:50 AM CDT 09/23/2008 10:05 AM CDT Narrative INTERFACE SYSTEM - 09/23/2008 10:15 AM CDT room 6 Elmo Reich MD HEMATOLOGY ORDERABLES Final Re sult Performing Organization Address [facility] Phone Number INTERFACE SYSTEM Refer to clinic/hospital department [facility] CLIA# [id number] [address] [place] [address] documented in this encounter Visit Diagnoses Not on filedocumented in this encounter Care Teams Manager Reliability Relationship Specialty Start Date End Date Soren Mart MD PCP - General 02/10/09 documented as of this encounter
--- OUTSIDE RECORDS SUMMARY | 2024-08-24 12:00 | XMS_ITS | Encounter Summary ---
Author Organization [employer] Address [address] [place] [address] Care Team Providers Care Patrol Deputy Sheriff Name Role Phone Soren Mart MD Primary Care Provider [phone] Encounter Details Date Type Department Care Team (Late st Contact Info) Description 02/04/2008 Outpatient Historical [facility] Er, Authorized P NO ADDRESS ON FILE Ingrid Giang NP [address] [facility] [place] [address] Social History Tobacco Use Types Packs/Day Years Used Date Smoking Tobacco: Never Assessed Comments Unknown Sex and Gender Information Value Date Recorded Sex Assigned at Not on file 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 Findings: The paranasal sinuses are clear. The orbits are intact. The soft tissues are unremarkable. Impression: Unremarkable study. . Dictated by: VANDANA MCCRARY 02/04/2008 13:43 Electronically signed by: VANDANA MCCRARY 02/04/2008 13:44 Procedure Note Vandana Mccrary - 02/04/2008 [facility] [address] [place], [place] [address] Admit Date: 02/04/2008 ANNI BRYANT Sex: F Admit Prov: ER, AUTHORIZED P Date: 1990 Primary Care Prov: CMRN: [id number] [facility]: [id number] IMAGING SERVICES Ordering Prov: N/A Interpretation Sinuses complete 4 views 02/04/2008 History: Headache. Findings: The paranasal sinuses are clear. The orbits are intact. Thesoft tissues are unremarkable. Impression: Unremarkable study. . Dictated by: VANDANA MCCRARY 02/04/2008 13:43 Electronically signed by: VANDANA MCCRARY 02/04/2008 13:44 Ingrid Giang NP DIAGNOSTIC IMAGING ORDERABLES Final Result * URINALYSIS (02/04/2008 1:15 PM CDT) KETONES UA Negative Negative [facility] CLARITY UA Clear Clear [facility] BILIRUBIN UA Negative Negative [facility] [place] PROTEIN UA Negative Negative [facility] LEUKOCYTE ESTERASE UA Negative Negative [facility] SPECIFIC GRAVITY UA 1.005 1.001 - 1.035 [facility] GLUCOSE UA Negative Negative [facility] BLOOD UA Negative Negative [facility] COLOR UA Pale Yellow [facility] NITRITE UA Negative Negative [facility] UROBILINOGEN UA <1 <=1 mg/dL [facility] PH UA 7.0 5.0 - 8.0 [facility] 02/04/2008 1:15 PM CDT 02/04/2008 1:17 PM CDT Ingrid Giang NP URINE ORDERABLES Final Result INTERFACE SYSTEM Refer to clinic/hospital department [facility] CLIA# [id number] [address] [place] [address] * URINALYSIS WITH REFLEX CULTURE (02/04/2008 1:15 PM CDT) [facility] URINE CULTURE ORDER Not indicated [facility] Comment: Criteria for a reflex culture include one or more of the following: Abnormal nitrite, leukocyte esterase, WBCs or RBCs. Lack of qualifying criteria does not exclude the possiblity of a urinary tract infection. Dilute urine, drug interference, etc. may decrease the sensitivity of the criteria analytes. Urine specimen (specimen) 02/04/2008 1:15 PM CDT 02/04/2008 1:17 PM CDT Ingrid Giang CAFETERIA OR LUNCHROOM CHECKER URINE ORDERABLES Final Result Performing Organization Address [facility] de Phone Number INTERFACE SYSTEM Refer to clinic/hospital department [facility] CLIA# [id number] [address] [place] [address] * POC , URINE (02/04/2008 1:11 PM CDT) [facility] , URINE POC Negative Negative [facility] SPECIFIC GRAVITY UA 1.010 1.001 - 1.035 [facility] Urine specimen (specimen) 02/04/2008 1:11 PM CDT 02/04/2008 1:11 PM CDT us Authorized P Er POINT OF CARE TESTING Final Resu lt Performing Organization Address [facility] de Phone Number INTERFACE SYSTEM Refer to clinic/hospital department [facility] CLIA# [id number] [address] [place] [address] * POC URINALYSIS DIPSTICK (02/04/2008 1:09 PM CDT) [facility] CLARITY UA Clear [facility] PROTEIN UA Negative Negative [facility] BLOOD UA Negative Negative [facility] LEUKOCYTE ESTERASE UA Negative Negative [facility] UROBILINOGEN UA Normal <=1 mg/dL [facility] SPECIFIC GRAVITY UA 1.010 1.001 - 1.030 [facility] GLUCOSE UA Negative Negative [facility] COLOR UA Pale [facility] BILIRUBIN UA Negative Negative [facility] NITRITE UA Negative Negative [facility] PH UA 7.0 5.0 - 8.0 [facility] KETONES UA Negative Negative [facility] COMMENT, URINE Test not chrgd/to repeat [facility] Urine specimen (specimen) 02/04/2008 1:09 PM CDT 02/04/2008 1:09 PM CDT us Authorized P Er POINT OF CARE TESTING Edited INTERFACE SYSTEM Refer to clinic/hospital department [facility] CLIA# [id number] [address] [place] [address] * (ABNORMAL) CBC WITH DIFFERENTIAL (02/04/2008 11:50 AM CDT) WBC 10.4(H) 4.0 - 9.8 K/uL [facility] MCH 30.4 27.2 - 32.6 pg [facility] MPV 10.3 9.3 - 12.4 fL [facility] HEMATOCRIT 37.5 35.5 - 44.0 % [facility] RDW-STDEV 42.9 37.1 - 48.7 fL [facility] RBC 4.08 3.90 - 4.90 M/uL [facility] MCHC 33.1 31.5 - 35.5 % [facility] MCV 91.9 82.0 - 99.0 fL [facility] PLATELETS 224 140 - 350 K/uL [facility] HEMOGLOBIN 12.4 11.8 - 14.8 g/dL [facility] RDW 12.7 11.5 - 14.5 % [facility] PLATELET EST. Consistent w/ count Normal [facility] LYMPHOCYTES 11(L) 16 - 45 % [facility] BASOPHILS ABSOLUTE 0.00 0.00 - 0.20 K/uL [facility] BASOPHILS 0 0 - 2 % [facility] MONOCYTE ABSOLUTE 0.31 0.10 - 1.30 K/uL [facility] MONOCYTES 3 3 - 13 % [facility] RBC MORPHOLOGY Normal Normal [facility] NEUTROPHIL ABSOLUTE 8.84(H) 1.90 - 7.00 K/uL [facility] NEUTROPHILS, SEG 85(H) 45 - 70 % [facility] ATYPICAL LYMPHOCYTE 1 0 - 5 % [facility] EOSINOPHIL ABSOLUTE 0.00 0.00 - 0.70 K/uL [facility] REVIEWED ON SMEAR Plt OK by Smear Rev. [facility] EOSINOPHILS 0 0 - 7 % [facility] LYMPHOCYTE ABSOLUTE 1.25 0.70 - 4.50 K/uL [facility] Blood specimen (specimen) 02/04/2008 11:50 AM CDT 02/04/2008 11:55 AM CDT us Ingrid Giang NP HEMATOLOGY ORDERABLES Edited INTERFACE SYSTEM Refer to clinic/hospital department [facility] CLIA# [id number] [address] [facility] [place] [address] * MONONUCLEOSIS SCREEN (02/04/2008 11:50 AM CDT) MONONUCLEOSIS SCREEN Negative Negative [facility] Blood specimen (specimen) 02/04/2008 11:50 AM CDT 02/04/2008 11:55 AM CDT Ingrid Giang NP HEMATOLOGY ORDERABLES Final R esult Performing Organization Address [facility] de Phone Number INTERFACE SYSTEM Refer to clinic/hospital department [facility] CLIA# [id number] [address] [place] [address] * C-REACTIVE PROTEIN (02/04/2008 11:50 AM CDT) Pathologist [facility] CRP 0.2 0.0 - 0.8 mg/dL [facility] Blood specimen (specimen) 02/04/2008 11:50 AM CDT 02/04/2008 11:55 AM CDT Ingrid Giang NP CHEMISTRY ORDERABLES Final Re sult Performing Organization Address [facility] de Phone Number INTERFACE SYSTEM Refer to clinic/hospital department [facility] CLIA# [id number] [address] [place] [address] * COMPREHENSIVE METABOLIC PANEL (02/04/2008 11:50 AM CDT) ALKALINE PHOSPHATASE 65 35 - 187 U/L [facility] BILIRUBIN TOTAL 0.4 0.2 - 1.0 mg/dL [facility] CO2 23 22 - 30 mmol/L [facility] TOTAL PROTEIN 7.1 6.3 - 8.6 g/dL [facility] POTASSIUM 3.9 3.5 - 4.9 mmol/L [facility] GLUCOSE 101 60 - 110 mg/dL [facility] AST 16 12 - 32 U/L [facility] BUN 10 6 - 20 mg/dL [facility] CALCIUM 9.0 8.4 - 10.2 mg/dL [facility] Comment:Note new reference r percy effective 01/14/08 CHLORIDE 103 96 - 108 mmol/L [facility] ALBUMIN 4.4 3.2 - 4.5 g/dL [facility] CREATININE 0.64 0.51 - 0.95 mg/dL [facility] SODIUM 135 135 - 145 mmol/L [facility] ALT 14 0 - 31 U/L [facility] GFR, N/A:MDRD equation validated for pts. >18 yrs. >=60 mL/min/1 .7 sq meter [facility] GFR N/A:MDRD equation validated for pts. >18 yrs. >=60 mL/min/1 .7 sq meter [facility] Comment: Modification of Diet in Renal Disease (MDRD) study formula. Estimated GFR rate interpretative information for both Americans and non- Americans is available on the [facility] Intranet at: [email or web address] Select: Lab Policies and Procedures Select: Reference Ranges - GFR Blood specimen (specimen) 02/04/2008 11:50 AM CDT 02/04/2008 11:55 AM CDT Ingrid Giang CAFETERIA OR LUNCHROOM CHECKER CHEMISTRY ORDERABLES Edited INTERFACE SYSTEM Refer to clinic/hospital department [facility] CLIA# [id number] [address] [place] [place] [address] documented in this encounter Visit Diagnoses Not on filedocumented in this encounter Care Teams Patrol Deputy Sheriff Relationship Specialty Start Date End Date Soren Mart MD PCP - General 02/10/09 documented as of this encounter
--- OUTSIDE RECORDS SUMMARY | 2024-08-24 12:00 | XMS_ITS | Encounter Summary ---
Author Organization [facility] Address 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 CURRENT ALLERGY LIST: NO KNOWN DRUG ALLERGY PHARMACY NUMBER: [phone] [employer] [facility]a PROBLEMS: VAGINAL DISCHARGE: [...] some metrogel but would have her see materials handling equipment operator if her sx persist. MEDICATIONS: Call in [...] on filedocumented in this encounter Care Teams Brim And Crown Presser Relationship Specialty Start Date End Date Soren Mart MD PCP - General 02/10/09 documented as of this encounter
--- OUTSIDE RECORDS SUMMARY | 2024-08-24 12:00 | XMS_ITS | Encounter Summary ---
Author Organization [employer] Address 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 GONORRHOEAE, DNA Routine 04/27/2008 7:34 PM SHEET ROCK TAPER URINE CULTURE Routine 04/27/2008 7:34 PM SHEET ROCK TAPER documented in this encounter Results * URINE CULTURE (04/27/2008 7:34 PM SHEET ROCK TAPER) FINAL REPORT 50-100,000 colonies/mL Escherichia coli <10,000 colonies/mL Streptococcus Group B -NOTE: In women, recovery of Group B Streptococcus may be significant. However, in non- women, recovery in small quantities suggests contamination with blue urethral maureen. Normal urethral maureen also present. - Phoned report (with read back verified) to [facility] () 04/29/08 10:43:23 -- Faxed report(s): [phone] [facility] SUSCEPTIBILITY PERFORMED ON ESCHERICHIA COLI [facility] 04/27/2008 7:34 PM SHEET ROCK TAPER 04/27/2008 8:27 PM SHEET ROCK TAPER Narrative Organism Antibiotic Method Susceptibility Escherichia coli [...] ORDERA BLES Final Result Performing Organization Address City/[facility]/ZIP Co de Phone Number INTERFACE SYSTEM Refer to clinic/hospital department [facility] CLIA# [id number] [address] [place] [address] * CHLAMYDIA/N. GONORRHOEAE, DNA (04/27/2008 7:34 PM SHEET ROCK TAPER) CHLAMYDIA TRACHOMATIS DNA NOT DETECTED NOT DETECTED [facility] NEISSERIA GONORRHOEAE DNA NOT DETECTED NOT DETECTED [facility] Comment: Lab test performed by: [facility] [address] [address] ZURDO FIGUEROA MD Specimen of unknown material (specimen) URINE SPECIMEN / Unknown 04/27/2008 7:34 PM SHEET ROCK TAPER 04/27/2008 8:08 PM SHEET ROCK TAPER us History Conversion BODY FLUIDS AND STOOLS Final Result Performing Organization Address City/[facility]/ZIP Co de Phone Number INTERFACE SYSTEM Refer to clinic/hospital department [facility] CLIA# [id number] [address] [place] [address] documented in this encounter Visit Diagnoses Diagnosis Urinary tract infection, site not specified documented in this encounter Care Teams Steel Spar Operator Relationship Specialty Start Date End Date Soren Mart MD PCP - General 02/10/09 documented as of this encounter
--- OUTSIDE RECORDS SUMMARY | 2024-08-24 12:00 | XMS_ITS | Encounter Summary ---
Author Organization [employer] Address 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 Gender Identity Not on file Sexual Orientation Not on file documented as of this encounter Plan of Treatment Not on file documented as of this encounter Procedures Procedure Name Priority Date/Time Associated Diagnosis Comments URINE CULTURE Routine 05/21/2008 11:47 AM WHARF TENDER documented in this encounter Results * URINE CULTURE (05/21/2008 11:47 AM WHARF TENDER) PRELIMINARY REPORT Pending [facility] FINAL REPORT No growth 24 hours [facility] 05/21/2008 11:4 7 AM WHARF TENDER 05/21/2008 6:10 PM WHARF TENDER us Dario Coronel MD MICROBIOLOGY - GENERAL ORDER ADAM Final Result INTERFACE SYSTEM Refer to clinic/hospital department [facility] CLIA# [id number] [address] [place] [address] documented in this encounter Visit Diagnoses Not on filedocumented in this encounter Care Teams Label Paster Relationship Specialty Start Date End Date Soren Mart MD PCP - General 02/10/09 documented as of this encounter
--- OUTSIDE RECORDS SUMMARY | 2024-08-24 12:00 | XMS_ITS | Encounter Summary ---
Author Organization [facility] Address 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 Gender Identity Not on file Sexual Orientation Not on file documented as of this encounter Progress Notes * Inge Hutson MD - 10/29/2007 5:13 PM CDT TIME:02:07 pm PATIENT`S HOME PHONE: PATIENT`S WORK PHONE: PATIENT`S INSURANCE: [facility] [employer] [facility] WHO TOOK THE CALL: Amelia Lee R GENERAL INFORMATION ALTERNATIVE PHONE NUMBER: [phone] WHO CALLED: Patient`s mother called.Carly Cisneros CURRENT [...] on filedocumented in this encounter Care Teams Environmental Scientists Relationship Specialty Start Date End Date Soren Mart MD PCP - General 02/10/09 documented as of this encounter
--- OUTSIDE RECORDS SUMMARY | 2024-08-24 12:00 | XMS_ITS | Encounter Summary ---
Author Organization [employer] Address [address] [place] [address] Care Team Providers Care Assistant Casino Shift Manager Name Role Phone Soren Mart MD Primary Care Provider [phone] Encounter Details Date Type Department Care Team [...] file Legal Sex Female 3:43 AM HEEL SEAT TRIMMER Gender Identity Not on file Sexual Orientation [...] PM CDT Narrative 08/25/2008 9:51 PM CDT [place] [address] [place], [place] [address] Admit Date: 08/25/2008 ANNI BRYANT Sex: F Admit Prov: ER, AUTHORIZED P Date: 1990 Primary Care Prov: CMRN: [id number] Room: ER-A N: [address] [place] [address] IMAGING SERVICES Ordering Prov: N/A Accession Number: [id number] Interpretation EXAMINATION: LEFT FIFTH FINGER, 3 VIEWS. [...] Procedure Note Denver Panda MD - 08/25/2008 [place] [address] [place], [place] [address] Admit Date: 08/25/2008 ANNI BRYANT Sex: F Admit Prov: ER, AUTHORIZED P Date: 1990 Primary Care Prov: CMRN: [id number] [id number] IM[facility]ING SERVICES Ordering Prov: N/A Interpretation EXAMINATION: [...] premises documented in this encounter Care Teams Assistant Casino Shift Manager Relationship Specialty Start Date End Date Soren Mart MD PCP - General 02/10/09 documented as of this encounter
--- OUTSIDE RECORDS SUMMARY | 2024-08-24 12:00 | XMS_ITS | Encounter Summary ---
Author Organization [facility] Address 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 Can you prescribe a few for the stomach cramps. She has to go back to school to be able to be in [employer]'s performance. NAUSEA: Patient complains of nausea. The [...] on filedocumented in this encounter Care Teams Process Mechanic Relationship Specialty Start Date End Date Soren Mart MD PCP - General 02/10/09 documented as of this encounter
--- OUTSIDE RECORDS SUMMARY | 2024-08-24 12:00 | XMS_ITS | Encounter Summary ---
Author Organization [facility] Address [address] [place] [address] Care Team Providers Care Principal Bioinformatics Specialist Name Role Phone Soren Mart MD Primary Care Provider [phone] Encounter Details Date Type Department Care Team (Late st Contact Info) Description 07/06/2007 Orders Only [facility] Internal Medicine [address] [address] Inge Hutson MD NO ADDRESS ON FILE Social History Tobacco Use Types Packs/Day Years Used Date Smoking Tobacco: Never Assessed Comments Unknown Sex and Gender Information Value Date Recorded Sex Assigned at Not on file Legal Sex Female 3:43 AM BINDER FIXER Gender Identity Not on file Sexual Orientation Not on file documented as of this encounter Progress Notes * Inge Hutson MD - 10/28/2007 7:51 PM CDT TIME:11:07 am PATIENT`S HOME PHONE: PATIENT`S WORK PHONE: PATIENT`S INSURANCE: [facility] WHO TOOK THE CALL: Amelia Lee R GENERAL INFORMATION ALTERNATIVE PHONE NUMBER: [phone] or Jonas- Amelia WHO CALLED: Patient called. [...] on filedocumented in this encounter Care Teams Principal Bioinformatics Specialist Relationship Specialty Start Date End Date Soren Mart MD PCP - General 02/10/09 documented as of this encounter
--- OUTSIDE RECORDS SUMMARY | 2024-08-24 12:00 | XMS_ITS | Encounter Summary ---
Author Organization [facility] Address [address] [place] [address] Care Team Providers Care Sleeve Maker Name Role Phone Soren Mart MD Primary Care Provider [phone] Encounter Details Date Type Department Care Team (Late st Contact Info) Description 08/24/2007 Outpatient Historical [facility] Internal Medicine [address] [address] Soren Mart MD [address] [place] [address] Social History Tobacco Use Types Packs/Day Years Used Date Smoking Tobacco: Never Assessed Comments Unknown Sex and Gender Information Value Date Recorded Sex Assigned at Not on file Legal Sex Female 3:43 AM 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
--- OUTSIDE RECORDS SUMMARY | 2024-08-24 12:00 | XMS_ITS | Encounter Summary ---
Author Organization [employer] Address [address] [place] [address] Care Team Providers Care Ride Mechanic Name Role Phone Porter Christianson MD Primary Care Provider [phone] Encounter Details Date Type Department Care Team (Latest Contact Info) Description 08/24/2007 Outpatient Historical [facility] Porter Christianson MD [address] [place] [address] Brain Injury NEC (CMS/HCC) Social History Tobacco Use Types Packs/Day Years Used Date Smoking Tobacco: Never Assessed Comments Unknown Sex and Gender Information Value Date Recorded Sex Assigned at Not on file Legal Sex Female 3:43 AM LIBRARY CLERICAL ASSISTANT Gender Identity Not on file Sexual Orientation [...] AM CDT Narrative 08/24/2007 1:35 PM CDT [facility] [address] [place], [place] [address] Admit Date: 08/24/2007 ANNI BRYANT Sex: F Admit Prov: PORTER CHRISTIANSON Date: 1990 Primary Care Prov: ALYX REGAN CMRN: [id number] [phone] IM[facility] Ordering Prov: N/A Accession Number: [id number] Interpretation CT HEAD WITHOUT CONTRAST, 08/23/2005 History: [...] CUONG SHAFFER 08/24/2007 13:35 Transcribed: 08/24/2007 13:11 [facility] Procedure Note Provider, Historical - 08/24/2007 [place] [id number] [place], [place] [address] Admit Date: 08/24/2007 ANNI BRYANT Sex: F Admit Prov: PORTER CHRISTIANSON Date: 1990 Primary Care Prov: ALYX REGAN CMRN: [id number] [facility] [phone] IM[facility]ING SERVICES Ordering Prov: N/A Interpretation CT [...] open intracranial wound, unspecified state of consciousness (CMS/[facility]) Intracranial injury of other and unspecified nature, without mention of open intracranial wound, unspecified state of consciousness documented in this encounter Care Teams Ride Mechanic Relationship Specialty Start Date End Date Porter Christianson MD PCP - General 02/10/09 documented as of this encounter
--- OUTSIDE RECORDS SUMMARY | 2024-08-24 12:00 | XMS_ITS | Encounter Summary ---
Author Organization [facility] Address [address] [place] [address] Care Team Providers Care Enterprise Systems Manager Name Role Phone Soren Mart MD Primary Care Provider [phone] Encounter Details Date Type Department Care Team (Late st Contact Info) Description 07/06/2007 Outpatient Historical [facility] Internal Medicine [address] [address] Inge Hutson MD NO ADDRESS ON FILE Social History Tobacco Use Types Packs/Day Years Used Date Smoking Tobacco: Never Assessed Comments Unknown Sex and Gender Information Value Date Recorded Sex Assigned at Not on file Legal Sex Female 3:43 AM CLOCK MAKER Gender Identity Not on file Sexual Orientation Not on file documented as of this encounter Last Filed Vital Signs Vital Sign Reading Time Taken Comments Blood Pressure - - Pulse - - Temperature 37 C (98.6 F) 07/06/2007 11:45 AM CLOCK MAKER Respiratory Rate - - Oxygen Saturation - - Inhaled Oxygen Concentration - - Weight 68 kg (150 lb) 07/06/2007 11:45 AM CLOCK MAKER Height - - Body Mass Index - - documented in this encounter Plan of Treatment Not on file documented as of this encounter Visit Diagnoses Not on filedocumented in this encounter Care Teams Enterprise Systems Manager Relationship Specialty Start Date End Date Soren Mart MD PCP - General 02/10/09 documented as of this encounter
== END 2024-08-24 10:34 | disposition home or self-care (01) ==
LOC: ANHLAB 10:34
PROVIDERS: Visit Provider Obstetrics & Gynecology
DX: O99.719 Diseases of the skin and subcutaneous tissue complicating pregnancy, unspecified trimester (principal); L29.9 Pruritus, unspecified; Z3A.00 Weeks of gestation of pregnancy not specified
CPT/HCPCS: 36415; 80076; 82542

== ENCOUNTER 2024-09-12 13:17 | Outpatient (CLI) | payer OTHER, SELFPAY ==
--- OUTSIDE RECORDS SUMMARY | 2024-09-12 13:22 | XMS_ITS | Encounter Summary ---
Author Organization [facility] Address 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 LAB ORDERS: Order number: [id number] Test Ordered: HEMOCCULT SINGLE [id number] + PATIENT EDUCATION: Questions were allowed to stated satisfaction. PREVENTIVE COUNSELING The patient was counseled regarding diet. RETURN VISIT : please waive todays co-pay Electronically Signed by: Inge Hutson MD on Wednesday, June 07, 2006 documented in this encounter Plan of Treatment Not on file documented as of this encounter Visit Diagnoses Not on filedocumented in this encounter Care Teams Alterations Tailor Relationship Specialty Start Date End Date Soren Mart MD PCP - General 02/10/09 documented as of this encounter
--- OUTSIDE RECORDS SUMMARY | 2024-09-12 13:22 | XMS_ITS | Clinical Summary ---
Author Organization [facility] Address [address] [place] [address] Care Team Providers Care Speedboat Driver Name Role Phone Soren Mart MD Primary Care Provider [phone] Allergies No known active allergies Medications ondansetron (ZOFRAN ODT) 4 mg Tablet, Rapid DissolveIndication s:Nausea Place 1 tab on top of tongue and let dissolve every 8 hours prn nausea.. 32 Tablet 3 7 Active mometasone-formote rol (DULERA) 100-5 mcg/actuation inhaler LOT:[id number] EX:11/2017 QTY:1 BOX. 1 Gram 7 Active [...] Encounters Date Type Department Care Team Description 09/01/2024 External Device Data STL ABSTRACTION Provider, Abstract 09/01/2024 External Device Data STL ABSTRACTION Provider, Abstract 08/21/2024 External Device Data STL ABSTRACTION Provider, Abstract 08/20/2024 External Device Data STL ABSTRACTION Provider, Abstract 08/18/2024 External Device Data STL ABSTRACTION Provider, Abstract 08/05/2024 9:07 AM PAYROLL MANAGER - 08/05/2024 11:59 PM PAYROLL MANAGER Hospital Encounter [facility] [address] [place] [address] Jaydon Chase MD Discharge Disposition: [...] on file Legal Sex Female 3:43 AM PAYROLL MANAGER Gender Identity Not on file Sexual [...] 113.4 kg (250 lb) 07/12/2020 4:03 PM PAYROLL MANAGER Height 162.6 cm (5' 4 ) 07/12/2020 4:03 PM PAYROLL MANAGER Body Mass Index 42.91 07/12/2020 4:03 PM PAYROLL MANAGER Plan of Treatment Health Maintenance Due Date Last Done Comments Preventative Visit-Managed Medicaid 11/27/2017 11/26/2016, 01/17/2016, 11/02/2015, Additional history exists HPV/Cotest (30-65) 2021 11/02/2015 DTAP/TDAP/TD VACCINES (10 - Td or Tdap) 09/25/2023 09/24/2013, 01/08/2010, 01/15/2006, Additional history exists INFLUENZA VACCINE (#1) 2024 , 04/13/2016, 04/12/2016, Additional history exists CERVICAL CANCER SCREENING 02/21/2026 PAP SMEAR 02/21/2026 02/21/2023, 10/14, 02/11/2008 PAP SMEAR 02/21/2026 02/21/2023, 10/14, 02/11/2008 HEPATITIS B VACCINES Completed 08/17/1997, 08/17/1997, 03/09/1997, Additional history exists HPV VACCINES Completed 02/21/2009, 09/15, 08/04/2008 Procedures Procedure Name Priority Date/Time Associated Diagnosis Comments US OB FOLLOW UP PER FETUS Routine 08/05/2024 9:53 AM PAYROLL MANAGER Encounter for ultrasound to assess growth Obesity during , antepartum CERV/VAG CYTO SCREEN PAP RLFX HPV Routine 11/02/2015 12:00 AM CDT from Last 3 Months or Most Recently Relevant to Health Maintenance Results * US OB FOLLOW UP PER FETUS (08/05/2024 9:53 AM PAYROLL MANAGER) Anatomical Region Laterality Modality Pelvis Ultrasound 08/05/2024 9:32 AM PAYROLL MANAGER Narrative 08/05/2024 9:57 AM PAYROLL MANAGER STL FOLLOW UP ----- Pat. Name: ANNI BRYANT Study Date: 08/05/2024 9:32am Pat. NO: [id number] Referring MD: JAYDON CHASE MD Site: [facility] Shagger: Bri Toledo RDMS : 1990 Age: 34 [...] Weeks of gestation O99.213: Obesity complicating Procedures 60550: Ultrasound, uterus, real time with image documentation, [...] 5 lb 8 oz EFW by Hadlock ([id number]) Head / Face / Neck Biometry: Admissions Nurse 5.3 mm Extremities / Bony Struc Biometry: [...] and date of were verified by the cardiology coordinator prior to the exam IMPRESSION ----- 1. [...] Pat. Name:Eladia BRYANT Date:08/05/2024 9:32am Pat. NO: [id number] :JAYDON CHASE MD [facility]Bri Toledo RDMS :1990Age:34 ----- INDICATION ----- Maternal Care for Low Transverse Scar from Previous Delivery (Previous ) Maternal Obesity (BMI<40) Complicating Screening, Other Specified CODING ----- Diagnoses Z3A.33: Weeks of gestation Z36.89: Encounter to establish gestational ageusing ultrasound O99.213: Obesity complicating O34.211: Maternal care for low transverse scarfrom previous delivery Z36.3: Encounter for screening formalformations Z3A.33: Weeks of gestation O99.213: Obesity complicating Procedures 75883: Ultrasound, uterus, real time withimage documentation, follow up, transabdominal approach per fetus HISTORY ----- OB History 2. Para 1 T1L1 MATERNAL ASSESSMENT ----- Physical Exam Initial weight 95 kg, 210 lb. Initial BMI 37.20kg/m METHOD ----- Transabdominal ultrasound examination ----- Holt . Number of fetuses: 1 DATING ----- GA by prior [id number] w + 3 d ANA by prior [...] 5 lb 8 oz EFW by Hadlock ([id number]) Head / Face / Neck Biometry: Admissions Nurse 5.3mm Extremities / Bony Struc Biometry: FL [...] and date of were verified by the cardiology coordinator prior tothe exam IMPRESSION ----- 1. Single [...] (CP) (11/02/2015 12:00 AM CDT) CLINICAL INFORMATION [facility] Comment: Routine exam WELL WOMAN EXAM LAST MENSTRUAL PERIOD [facility] Comment:10/05/15 PREV PAP: [facility] Comment:Information not prov ided PREV BX: [facility] Comment:Information not prov ided SOURCE [facility] Comment:[employer] ADEQUACY: [facility] Comment: Satisfactory for evaluation. Endocervical/transformation zone component present. INTERPRETATION [facility] Comment:Negative for intraep ithelial lesion or malignancy. CYTOLOGY INFECTION [facility] [employer] [facility] Comment: Shift in vaginal maureen suggestive of bacterial vaginosis. COMMENT [employer] [facility] Comment: This Pap test has been evaluated with computer assisted technology. MOLD CHANGER: [employer] [facility] Comment: MLO, CT(ASCP) CT screening location: [place] [address] [place] [address] Test Performed at: [facility] [address] [place] [address] DEBBIE CHOPRA MD 11/02/2015 us Delphine Lua ASSET PROTECTION GREETER PATHOLOGY/CYTOLOGY ORDERABLES F inal Result [facility] [address] [place] [address] from Last 3 Months or Most Recently Relevant to Health Maintenance Insurance Advance Directives For more information, please contact: [phone] * Full Code (Latest Code Status on File) Date Activated Date Inactivated Comments 12/21/2013 9:08 PM 12/22/2013 6:32 PM Care Teams Speedboat Driver Relationship Specialty Start Date End Date Soren Mart MD PCP - General 02/10/09
--- OUTSIDE RECORDS SUMMARY | 2024-09-12 13:22 | XMS_ITS | Encounter Summary ---
Author Organization [facility] Address [address] [place] [address] Care Team Providers Care Book Critic Name Role Phone Soren Mart MD Primary Care Provider [phone] Encounter Details Date Type Department Care Team (Late st Contact Info) Description 01/15/2006 Outpatient Historical [facility] Internal Medicine [address] [address] Inge Hutson MD NO ADDRESS ON FILE Social History Tobacco Use Types Packs/Day Years Used Date Smoking Tobacco: Never Assessed Comments Unknown Sex and Gender Information Value Date Recorded Sex Assigned at Not on file Legal Sex Female 3:43 AM ATHLETIC EQUIPMENT MANAGER Gender Identity Not on file Sexual Orientation Not on file documented as of this encounter Plan of Treatment Not on file documented as of this encounter Visit Diagnoses Not on filedocumented in this encounter Care Teams Book Critic Relationship Specialty Start Date End Date Soren Mart MD PCP - General 02/10/09 documented as of this encounter
--- OUTSIDE RECORDS SUMMARY | 2024-09-12 13:22 | XMS_ITS | Encounter Summary ---
Author Organization [employer] Address [address] [place] [address] Care Team Providers Care Cloth Neutralizer Name Role Phone Soren Mart MD Primary Care Provider [phone] Encounter Details Date Type Department Care Team (Latest Contact Info) Description 06/05/2006 Outpatient Historical [facility] David Guillermo MD NO ADDRESS ON FILE Chronic Tonsillitis (Primary Dx) Social History Tobacco Use Types Packs/Day Years Used Date Smoking Tobacco: Never Assessed Comments Unknown Sex and Gender Information Value Date Recorded Sex Assigned at Not on file Legal Sex Female 3:43 AM GRIT BLASTER Gender Identity Not on file Sexual Orientation Not on file documented as of this encounter Plan of Treatment Not on file documented as of this encounter Procedures Procedure Name Priority Date/Time Associated Diagnosis Comments POC , URINE Routine 06/05/2006 9:20 AM GRIT BLASTER HEMOGLOBIN AND HEMATOCRIT Routine 06/05/2006 9:11 AM GRIT BLASTER documented in this encounter Results * POC , URINE (06/05/2006 9:20 AM GRIT BLASTER) , URINE POC Negative Negative INTERFACE SYSTEM 06/05/2006 9:20 AM GRIT BLASTER us David Guillermo MD POINT OF CARE TESTING Final Result INTERFACE SYSTEM Refer to clinic/hospital department * HEMOGLOBIN AND HEMATOCRIT (06/05/2006 9:11 AM GRIT BLASTER) HEMOGLOBIN 13.3 11.8 - 14.8 g/dL INTERFACE SYSTEM HEMATOCRIT 39.0 35.5 - 44.0 % INTERFACE SYSTEM 06/05/2006 9:11 AM GRIT BLASTER us David Guillermo MD HEMATOLOGY ORDERABLES Final Result INTERFACE SYSTEM Refer to clinic/hospital department documented in this encounter Visit Diagnoses Diagnosis Chronic tonsillitis- Primary documented in this encounter Care Teams Cloth Neutralizer Relationship Specialty Start Date End Date Soren Mart MD PCP - General 02/10/09 documented as of this encounter
--- OUTSIDE RECORDS SUMMARY | 2024-09-12 13:22 | XMS_ITS | Encounter Summary ---
Author Organization [facility] Address [address] [place] [address] Care Team Providers Care Account Receivable Associate Name Role Phone Soren Mart MD Primary Care Provider Encounter Details Date Type Department Care Team (Late st Contact Info) Description 01/15/2006 Outpatient Historical [facility] Internal Medicine [address] [address] Inge Hutson MD NO ADDRESS ON FILE Social History Tobacco Use Types Packs/Day Years Used Date Smoking Tobacco: Never Assessed Comments Unknown Sex and Gender Information Value Date Recorded Sex Assigned at Not on file Legal Sex Female 3:43 AM AMUSEMENT EQUIPMENT OPERATOR Gender Identity Not on file Sexual Orientation Not on file documented as of this encounter Plan of Treatment Not on file documented as of this encounter Visit Diagnoses Not on filedocumented in this encounter Care Teams Account Receivable Associate Relationship Specialty Start Date End Date Soren Mart MD PCP - General 02/10/09 documented as of this encounter
--- OUTSIDE RECORDS SUMMARY | 2024-09-12 13:22 | XMS_ITS | Clinical Summary ---
Author Organization [facility] Address [address] [place] [address] Care Team Providers Care Wax Molder Name Role Phone Joy Gardner GWEN-LAB ANALYST Primary Care Provider + Source Comments [facility],non-owned Affiliates and Associated Physician Practices is amultiple site organization consisting of ambulatory clinics and hospital sitesin [place], [place], [place] and [place]. This disclosure is being madepursuant to the Care Everywhere program and may not contain all information available regarding this patient. Last updated 18.[facility] Brandicted Allergies No known active allergies Medications * [...] LURIA, FLUZONE TRIVALENT; 6MO+) (IIV3) 04/13/2016,04/14/2014,05/21/2010 [employer] primary monoval ent 12+ yr 0.3mL Purple [...] complete this topic MENINGOCOCCAL (Group B) VACCINE SHARED DECISION-MAKING Aged Out No longer eligible based on patient's age to complete this topic MENINGOCOCCAL GROUPS A/C/Y/W VACCINE Aged Out No longer eligible based on patient's age to complete this topic PNEUMOCOCCAL VACCINE Aged Out No long er eligible based on patient's age to complete this topic Care Teams Wax Molder Relationship Specialty Start Date End Date Joy Gardner APRN-CNP [address] [id number] PCP - General 02/13/21
--- OUTSIDE RECORDS SUMMARY | 2024-09-12 13:22 | XMS_ITS | Encounter Summary ---
Author Organization [facility] Address [address] [place] [address] Care Team Providers Care On Site Soil Evaluator Name Role Phone Soren Mart MD Primary Care Provider [phone] Encounter Details Date Type Department Care Team (Late st Contact Info) Description 06/04/2006 Outpatient Historical [facility] Internal Medicine [address] [address] Inge Hutson MD NO ADDRESS ON FILE Social History Tobacco Use Types Packs/Day Years Used Date Smoking Tobacco: Never Assessed Comments Unknown Sex and Gender Information Value Date Recorded Sex Assigned at Not on file Legal Sex Female 3:43 AM DRILLING FLUIDS SPECIALIST Gender Identity Not on file Sexual Orientation Not on file documented as of this encounter Plan of Treatment Not on file documented as of this encounter Visit Diagnoses Not on filedocumented in this encounter Care Teams On Site Soil Evaluator Relationship Specialty Start Date End Date Soren Mart MD PCP - General 02/10/09 documented as of this encounter
--- OUTSIDE RECORDS SUMMARY | 2024-09-12 13:22 | XMS_ITS | Encounter Summary ---
Author Organization [facility] Address [address] [place] [address] Care Team Providers Care Awning Assembler Name Role Phone Soren Mart MD Primary Care Provider [phone] Encounter Details Date Type Department Care Team (Late st Contact Info) Description 06/24/2006 Orders Only [facility] Internal Medicine [address] [address] Inge Hutson MD NO ADDRESS ON FILE Social History Tobacco Use Types Packs/Day Years Used Date Smoking Tobacco: Never Assessed Comments Unknown Sex and Gender Information Value Date Recorded Sex Assigned at Not on file Legal Sex Female 3:43 AM RN PROGRESSIVE CARE UNIT Gender Identity Not on file Sexual Orientation Not on file documented as of this encounter Progress Notes * Inge Hutson MD - 11/10/2007 10:59 AM CDT TIME:04:58 pm PATIENT`S HOME PHONE: PATIENT`S WORK PHONE: PATIENT`S INSURANCE: [facility] [employer] [facility] WHO TOOK THE CALL: Amelia Lee R GENERAL INFORMATION ALTERNATIVE PHONE NUMBER: [phone] or work WHO CALLED: Patient`s mother called. CURRENT ALLERGY LIST: NO KNOWN DRUG ALLERGY PHARMACY NUMBER: [phone] PROBLEMS: feeling terrible, chest tight-wheezing sound, did [...] on filedocumented in this encounter Care Teams Awning Assembler Relationship Specialty Start Date End Date Soren Mart MD PCP - General 02/10/09 documented as of this encounter
--- OUTSIDE RECORDS SUMMARY | 2024-09-12 13:22 | XMS_ITS | Continuity of Care Document ---
Author Organization [facility] Address [address] [facility] [address] [place] [address] Phone Care Team Providers Care Dental Equipment Technician Name Role Phone Maia Horner Unavailable Unavailable Advance Directives Directive Yes / No Effective Date File Name No Information Encounters Encounter Description Practice Location Reason(s) For Visit Diagnoses Date Provider Providers Copied on Encounter [facility], [address] [place] [address] [address], [place], [place], [id number], [place] tel:[phone] [address] [facility] [address] No Information May-0 9-200 0 Siri Carvalho. [address] [facility] , [address], [place], [address], [place]. tel:[phone] Family History Family Member Type Diagnosis Age [...]
--- OUTSIDE RECORDS SUMMARY | 2024-09-12 13:23 | XMS_ITS | Encounter Summary ---
Author Organization [facility] Address [address] [place] [address] Care Team Providers Care Extended Day Teacher Name Role Phone Soren Mart MD Primary Care Provider Encounter Details Date Type Department Care Team (Late st Contact Info) Description 04/30/2006 Outpatient Historical [facility] Internal Medicine [address] [address] Inge Hutson MD NO ADDRESS ON FILE Social History Tobacco Use Types Packs/Day Years Used Date Smoking Tobacco: Never Assessed Comments Unknown Sex and Gender Information Value Date Recorded Sex Assigned at Not on file Legal Sex Female 3:43 AM SHARED SERVICES MANAGER Gender Identity Not on file Sexual Orientation Not on file documented as of this encounter Plan of Treatment Not on file documented as of this encounter Visit Diagnoses Not on filedocumented in this encounter Care Teams Extended Day Teacher Relationship Specialty Start Date End Date Soren Mart MD PCP - General 02/10/09 documented as of this encounter
--- OUTSIDE RECORDS SUMMARY | 2024-09-12 13:23 | XMS_ITS | Encounter Summary ---
Author Organization [employer] Address [address] [place] [address] Care Team Providers Care White Hat Hacker Name Role Phone Soren Mart MD Primary Care Provider [phone] Encounter Details Date Type Department Care Team (Late st Contact Info) Description 09/22/2008 Outpatient Historical [facility] Elmo Reich MD [address] [facility] [address] [place] [address] Social History Tobacco Use Types Packs/Day Years Used Date Smoking Tobacco: Never Assessed Comments Unknown Sex and Gender Information Value Date Recorded Sex Assigned at Not on file Legal Sex Female 3:43 AM BEER COOLER Gender Identity Not on file Sexual Orientation [...] AM CDT Narrative 10/01/2008 11:40 AM CDT [place] [address] [place], [place] [address] Admit Date: 09/23/2008 ANNI BRYANT Sex: F Admit Prov: ELMO REICH Date: 1990 Primary Care Prov: CMRN: [id number] Room: SURG-A N: [id number] IMAGING SERVICES Ordering Prov: ELMO RECIH Accession Number: [id number] Interpretation Fluoroscopic guidance was used by the surgeon to assist with performance of this intra-operative procedure. Please refer to surgeon s operative report for specific details. Dictated by: RADIOLOGY, DEPARTMENT O Electronically signed by: RADIOLOGY, DEPARTMENT 10/01/2008 11:39 Transcribed: 10/01/2008 07:42 AMK Procedure Note Radiology, Radiologist - 10/01/2008 [place] [address] [place], [place] [address] Admit Date: 09/23/2008 ANNI BRYANT Sex: F Admit Prov: ELMO REICH Date: 1990 Primary Care Prov: CMRN: [id number] Room: [facility]: [id number] IMAGING SERVICES Ordering Prov: ELMO REICH Interpretation [...] AM CDT) , URINE POC Negative Negative [facility] Urine specimen (specimen) 09/23/2008 10:00 AM CDT 09/23/2008 10:00 AM CDT Elmo Reich MD POINT OF CARE TESTING Final Re sult Performing Organization Address City/[facility] de Phone Number INTERFACE SYSTEM Refer to clinic/hospital department [facility] CLIA# [id number] [address] [place] [address] * HEMOGLOBIN AND HEMATOCRIT (09/23/2008 9:50 AM CDT) HEMOGLOBIN 12.3 11.8 - 14.8 g/dL [facility] HEMATOCRIT 37.5 35.5 - 44.0 % [facility] Blood specimen (specimen) 09/23/2008 9:50 AM CDT 09/23/2008 10:05 AM CDT Narrative INTERFACE SYSTEM - 09/23/2008 10:15 AM CDT room 6 Elmo Reich MD HEMATOLOGY ORDERABLES Final Re sult Performing Organization Address [facility] Phone Number INTERFACE SYSTEM Refer to clinic/hospital department [facility] CLIA# [id number] [address] [place] [address] documented in this encounter Visit Diagnoses Not on filedocumented in this encounter Care Teams White Hat Hacker Relationship Specialty Start Date End Date Soren Mart MD PCP - General 02/10/09 documented as of this encounter
--- OUTSIDE RECORDS SUMMARY | 2024-09-12 13:23 | XMS_ITS | Encounter Summary ---
Author Organization [facility] Address [address] [place] [address] Phone Care Team Providers Care Cyber Systems Administrator Name Role Phone Denny Norman MD Primary Care Provider [phone] Encounter Details Date Type Department Care Team (Late st Contact Info) Description 01/02/2023 Telephone [facility] [address] [place] [address] Provider, None [place] Social History Tobacco Use Types Packs/Day Years Used Date Smoking Tobacco: Never Assessed Comments Unknown Sex and Gender Information Value Date Recorded Sex Assigned at Female 07/09/2023 12:53 PM REINFORCED IRONWORKER Legal Sex Female 1:59 PM CDT Gender Identity Female 07/09/2023 12:53 PM REINFORCED IRONWORKER Sexual Orientation Straight 07/09/2023 12 :53 PM REINFORCED IRONWORKER documented as of this encounter Miscellaneous Notes [...] see someone other than physician, such as PLUMBER APPRENTICE, PA, resident? yes Patient reason for appointment/any current symptoms: establish care med refills Other information (including need for litigation manager): no documented in this encounter Plan of Treatment Not on file documented as of this encounter Visit Diagnoses Not on filedocumented in this encounter Care Teams Cyber Systems Administrator Relationship Specialty Start Date End Date Denny Norman MD [address] [address] PCP - General Family Medicine 01/08/23 documented as of this encounter
--- OUTSIDE RECORDS SUMMARY | 2024-09-12 13:23 | XMS_ITS | Encounter Summary ---
Author Organization [employer] Address [address] [place] [address] Care Team Providers Care Cork Insulation Setter Name Role Phone Soren Mart MD Primary Care Provider [phone] Encounter Details Date Type Department Care Team (Late st Contact Info) Description 12/27/2006 Outpatient Historical [facility] Inge Hutson MD NO ADDRESS ON FILE Disturbance of Skin Sensation (Primary Dx) Social History Tobacco Use Types Packs/Day Years Used Date Smoking Tobacco: Never Assessed Comments Unknown Sex and Gender Information Value Date Recorded Sex Assigned at Not on file Legal Sex Female 3:43 AM TRAFFIC WORKER Gender Identity Not on file Sexual [...] ORDERABLES Ed ited Performing Organization Address City/State/[facility] Co de Phone Number INTERFACE SYSTEM [...] HEMATOLOGY ORDERABLES Ed ited Performing Organization Address [facility] Phone Number INTERFACE SYSTEM Refer to clinic/hospital department * HEMOGLOBIN A1C (12/27/2006 12:31 PM CDT) HEMOGLOBIN A1C 5.4 4.1 - 6.1 % of Hgb INTERFACE SYSTEM GLUCOSE, MEAN BLOOD 115 mg/dL INTERFACE SYSTEM 12/27/2006 12:3 1 PM CDT us Inge Hutson MD CHEMISTRY ORDERABLES Darrel juan Performing Organization Address [facility] Phone Number INTERFACE SYSTEM Refer to clinic/hospital department * TSH (12/27/2006 12:31 PM CDT) TSH 1.50 0.27 - 4.20 uU/mL INTERFACE SYSTEM 12/27/2006 12:3 1 PM CDT us Inge Hutson MD CHEMISTRY ORDERABLES Darrel juan Performing Organization Address [facility] Phone Number INTERFACE SYSTEM Refer to [...] CHEMISTRY ORDERABLES Darrel juan Performing Organization Address [facility] Phone Number INTERFACE SYSTEM Refer to clinic/hospital department * FERRITIN (12/27/2006 12:31 PM CDT) FERRITIN 39 13 - 150 ng/mL INTERFACE SYSTEM 12/27/2006 12:3 1 PM CDT us Inge Hutson MD CHEMISTRY ORDERABLES Darrel juan Performing Organization Address City/[facility] Co de Phone Number INTERFACE SYSTEM [...] the [facility] Intranet at: [email or web address] Select: Lab Policies and Procedures Select: Reference Ranges - GFR 12/27/2006 12:3 1 PM CDT Inge Hutson MD CHEMISTRY ORDERABLES Darrel juan Performing Organization Address City/[facility] Co de Phone Number INTERFACE SYSTEM Refer to clinic/hospital department documented in this encounter Visit Diagnoses Diagnosis Disturbance of skin sensation- Primary documented in this encounter Care Teams Cork Insulation Setter Relationship Specialty Start Date End Date Soren Mart MD PCP - General 02/10/09 documented as of this encounter
--- OUTSIDE RECORDS SUMMARY | 2024-09-12 13:23 | XMS_ITS | Encounter Summary ---
Author Organization [employer] Address [address] [place] [address] Care Team Providers Care Advanced Practice Provider Name Role Phone Soren Mart MD Primary Care Provider Encounter Details Date Type Department Care Team (Late st Contact Info) Description 03/14/2005 Outpatient Historical [facility] (Peds Cardiology-[place]) [address] [place] [address] Warner Flores MD NO ADDRESS ON FILE Social History Tobacco Use Types Packs/Day Years Used Date Smoking Tobacco: Never Assessed Comments Unknown Sex and Gender Information Value Date Recorded Sex Assigned at Not on file Legal Sex Female 3:43 AM FLEXIBLE NANNY Gender Identity Not on file Sexual Orientation Not on file documented as of this encounter Plan of Treatment Not on file documented as of this encounter Visit Diagnoses Not on filedocumented in this encounter Care Teams Advanced Practice Provider Relationship Specialty Start Date End Date Soren Mart MD PCP - General 02/10/09 documented as of this encounter
--- OUTSIDE RECORDS SUMMARY | 2024-09-12 13:23 | XMS_ITS | Encounter Summary ---
Author Organization [employer] Address [address] [place] [address] Care Team Providers Care Target Man Name Role Phone Soren Mart MD Primary Care Provider [phone] Encounter Details Date Type Department Care Team (Latest Contact Info) Description 04/27/2008 Outpatient Historical [facility] [place] Conversion, History Urinary Tract Infection, Site not Specified Social History Tobacco Use Types Packs/Day Years Used Date Smoking Tobacco: Never Assessed Comments Unknown Sex and Gender Information Value Date Recorded Sex Assigned at Not on file Legal Sex Female 3:43 AM CASH RECONCILIATION SPECIALIST Gender Identity Not on file Sexual Orientation Not on file documented as of this encounter Plan of Treatment Not on file documented as of this encounter Procedures Procedure Name Priority Date/Time Associated Diagnosis Comments CHLAMYDIA/N. GONORRHOEAE, DNA Routine 04/27/2008 7:34 PM CASH RECONCILIATION SPECIALIST URINE CULTURE Routine 04/27/2008 7:34 PM CASH RECONCILIATION SPECIALIST documented in this encounter Results * URINE CULTURE (04/27/2008 7:34 PM CASH RECONCILIATION SPECIALIST) FINAL REPORT 50-100,000 colonies/mL Escherichia coli <10,000 colonies/mL Streptococcus Group B -NOTE: In women, recovery of Group B Streptococcus may be significant. However, in non- women, recovery in small quantities suggests contamination with blue urethral maureen. Normal urethral maureen also present. - Phoned report (with read back verified) to [facility] () 04/29/08 10:43:23 -- Faxed report(s): [phone] [facility] SUSCEPTIBILITY PERFORMED ON ESCHERICHIA COLI [facility] 04/27/2008 7:34 PM CASH RECONCILIATION SPECIALIST 04/27/2008 8:27 PM CASH RECONCILIATION SPECIALIST Narrative Organism Antibiotic Method Susceptibility Escherichia coli [...] ORDERA BLES Final Result Performing Organization Address City/[facility]/ZIP Co de Phone Number INTERFACE SYSTEM Refer to clinic/hospital department [facility] CLIA# [id number] [address] [place] [address] * CHLAMYDIA/N. GONORRHOEAE, DNA (04/27/2008 7:34 PM CASH RECONCILIATION SPECIALIST) CHLAMYDIA TRACHOMATIS DNA NOT DETECTED NOT DETECTED [facility] NEISSERIA GONORRHOEAE DNA NOT DETECTED NOT DETECTED [facility] Comment: Lab test performed by: [employer] [address] [address] ZURDO FIGUEROA MD Specimen of unknown material (specimen) URINE SPECIMEN / Unknown 04/27/2008 7:34 PM CASH RECONCILIATION SPECIALIST 04/27/2008 8:08 PM CASH RECONCILIATION SPECIALIST us History Conversion BODY FLUIDS AND STOOLS Final Result Performing Organization Address City/[facility]/ZIP Co de Phone Number INTERFACE SYSTEM Refer to clinic/hospital department [facility] CLIA# [id number] [address] [place] [address] documented in this encounter Visit Diagnoses Diagnosis Urinary tract infection, site not specified documented in this encounter Care Teams Target Man Relationship Specialty Start Date End Date Soren Mart MD PCP - General 02/10/09 documented as of this encounter
--- OUTSIDE RECORDS SUMMARY | 2024-09-12 13:23 | XMS_ITS | Encounter Summary ---
Author Organization [employer] Address [address] [place] [address] Care Team Providers Care Vp Design Name Role Phone Soren Mart MD Primary Care Provider [phone] Encounter Details Date Type Department Care Team (Latest Contact Info) Description 03/14/2005 Outpatient Historical [facility] Conversion, History CHEST PAIN NEC (Primary Dx) Social History Tobacco Use Types Packs/Day Years Used Date Smoking Tobacco: Never Assessed Comments Unknown Sex and Gender Information Value Date Recorded Sex Assigned at Not on file Legal Sex Female 3:43 AM SAMPLE BOX MAKER Gender Identity Not on file Sexual Orientation Not on file documented as of this encounter Plan of Treatment Not on file documented as of this encounter Visit Diagnoses Diagnosis Other chest pain- Primary documented in this encounter Care Teams Vp Design Relationship Specialty Start Date End Date Soren Mart MD PCP - General 02/10/09 documented as of this encounter
--- OUTSIDE RECORDS SUMMARY | 2024-09-12 13:23 | XMS_ITS | Encounter Summary ---
Author Organization [facility] Address [address] [place] [address] Care Team Providers Care Transit Bus Operator Name Role Phone Soren Mart MD Primary Care Provider [phone] Encounter Details Date Type Department Care Team (Late st Contact Info) Description 02/04/2006 Orders Only [facility] Internal Medicine [address] [address] Inge Hutson MD NO ADDRESS ON FILE Social History Tobacco Use Types Packs/Day Years Used Date Smoking Tobacco: Never Assessed Comments Unknown Sex and Gender Information Value Date Recorded Sex Assigned at Not on file Legal Sex Female 3:43 AM FAMILY PRACTICE MD Gender Identity Not on file Sexual Orientation Not on file documented as of this encounter Progress Notes * Inge Hutson MD - 03/24/2008 11:14 PM CDT TIME:01:35 pm PATIENT`S HOME PHONE: PATIENT`S WORK PHONE: PATIENT`S INSURANCE: [facility] [email or web address] [facility] WHO TOOK THE CALL: Amelia Lee R GENERAL INFORMATION ALTERNATIVE PHONE NUMBER: [phone]-Amelia WHO CALLED: Patient`s mother called. CURRENT ALLERGY LIST: NO KNOWN DRUG ALLERGY PHARMACY NUMBER: [phone] PROBLEMS: EARACHE: Patient complains of earache. The [...] on filedocumented in this encounter Care Teams Transit Bus Operator Relationship Specialty Start Date End Date Soren Mart MD PCP - General 02/10/09 documented as of this encounter
--- OUTSIDE RECORDS SUMMARY | 2024-09-12 13:23 | XMS_ITS | Encounter Summary ---
Author Organization [facility] Address [address] [place] [address] Care Team Providers Care Manager Functional Name Role Phone Soren Mart MD Primary Care Provider [phone] Encounter Details Date Type Department Care Team (Late st Contact Info) Description 09/07/2007 Orders Only [facility] Internal Medicine [address] [address] Inge Hutson MD NO ADDRESS ON FILE Social History Tobacco Use Types Packs/Day Years Used Date Smoking Tobacco: Never Assessed Comments Unknown Sex and Gender Information Value Date Recorded Sex Assigned at Not on file Legal Sex Female 3:43 AM OYSTER WASHER Gender Identity Not on file Sexual Orientation Not on file documented as of this encounter Progress Notes * Inge Hutson MD - 11/19/2007 7:35 PM CDT TIME:02:22 pm PATIENT`S HOME PHONE: PATIENT`S WORK PHONE: PATIENT`S INSURANCE: [facility] [employer] [facility] WHO TOOK THE CALL: Thuan Cohen N Julia GENERAL INFORMATION ALTERNATIVE PHONE NUMBER: [phone] WHO CALLED: Patient`s mother called. CURRENT ALLERGY LIST: NO KNOWN DRUG ALLERGY PHARMACY NUMBER: [phone] [employer] PROBLEMS: VAGINAL DISCHARGE: [...] some metrogel but would have her see kiln packer if her sx persist. MEDICATIONS: Call in [...] filedocumented in this encounter Care Teams Manager Functional Relationship Specialty Start Date End Date Soren Mart MD PCP - General 02/10/09 documented as of this encounter
--- OUTSIDE RECORDS SUMMARY | 2024-09-12 13:23 | XMS_ITS | Encounter Summary ---
Author Organization [facility] Address [address] [place] [address] Care Team Providers Care Pet Food Deboner Name Role Phone Soren Mart MD Primary Care Provider [phone] Encounter Details Date Type Department Care Team (Late st Contact Info) Description 04/06/2007 Orders Only [facility] Internal Medicine [address] [address] Inge Hutson MD NO ADDRESS ON FILE Social History Tobacco Use Types Packs/Day Years Used Date Smoking Tobacco: Never Assessed Comments Unknown Sex and Gender Information Value Date Recorded Sex Assigned at Not on file Legal Sex Female 3:43 AM PENSION CONSULTANT Gender Identity Not on file Sexual Orientation Not on file documented as of this encounter Progress Notes * Inge Hutson MD - 10/30/2007 1:35 PM CDT TIME:08:59 am PATIENT`S HOME PHONE: PATIENT`S WORK PHONE: PATIENT`S INSURANCE: [facility] WHO TOOK THE CALL: Amelia Lee R GENERAL INFORMATION ALTERNATIVE PHONE NUMBER: [phone] or Amelia at work WHO CALLED: Patient`s mother called. CURRENT ALLERGY LIST: NO KNOWN DRUG ALLERGY PHARMACY NUMBER: [phone] PROBLEMS: feeling bad , achy FEVER: Patient [...] on filedocumented in this encounter Care Teams Pet Food Deboner Relationship Specialty Start Date End Date Soren Mart MD PCP - General 02/10/09 documented as of this encounter
--- OUTSIDE RECORDS SUMMARY | 2024-09-12 13:23 | XMS_ITS | Encounter Summary ---
Author Organization [facility] Address [address] [place] [address] Care Team Providers Care Wholesale Diamond Broker Name Role Phone Soren Mart MD Primary Care Provider [phone] Encounter Details Date Type Department Care Team (Late st Contact Info) Description 04/30/2006 Orders Only [facility] Internal Medicine [address] [address] Inge Hutson MD NO ADDRESS ON FILE Social History Tobacco Use Types Packs/Day Years Used Date Smoking Tobacco: Never Assessed Comments Unknown Sex and Gender Information Value Date Recorded Sex Assigned at Not on file Legal Sex Female 3:43 AM GIS SOFTWARE DEVELOPER Gender Identity Not on file Sexual [...] was cleaned by lighting with a cigarette disaster recovery specialist, this ring was also used beforehand by [...] as to visualizeTM. LAB ORDERS: Order number: [id number] Test Ordered: REMOVE CERUMEN IMPACT [id number] 682.0-OTHER CELLULITIS AND ABSCESS ASSESSMENT: advised warm [...] on filedocumented in this encounter Care Teams Wholesale Diamond Broker Relationship Specialty Start Date End Date Soren Mart MD PCP - General 02/10/09 documented as of this encounter
--- OUTSIDE RECORDS SUMMARY | 2024-09-12 13:23 | XMS_ITS | Encounter Summary ---
Author Organization [facility] Address [address] [place] [address] Care Team Providers Care Case Folder Name Role Phone Soren Mart MD Primary Care Provider [phone] Encounter Details Date Type Department Care Team (Late st Contact Info) Description 04/24/2007 Orders Only [facility] Internal Medicine [address] [address] Inge Hutson MD NO ADDRESS ON FILE Social History Tobacco Use Types Packs/Day Years Used Date Smoking Tobacco: Never Assessed Comments Unknown Sex and Gender Information Value Date Recorded Sex Assigned at Not on file Legal Sex Female 3:43 AM ESTHETICIAN Gender Identity Not on file Sexual Orientation Not on file documented as of this encounter Progress Notes * Inge Hutson MD - 10/29/2007 5:13 PM CDT TIME:02:07 pm PATIENT`S HOME PHONE: PATIENT`S WORK PHONE: [facility] WHO TOOK THE CALL: Amelia Lee R GENERAL INFORMATION ALTERNATIVE PHONE NUMBER: [phone] WHO CALLED: Patient`s mother called.Carly Cisneros CURRENT [...] on filedocumented in this encounter Care Teams Case Folder Relationship Specialty Start Date End Date Soren Mart MD PCP - General 02/10/09 documented as of this encounter
--- OUTSIDE RECORDS SUMMARY | 2024-09-12 13:23 | XMS_ITS | Encounter Summary ---
Author Organization [employer] Address [address] [place] [address] Care Team Providers Care Service Station Attendant Name Role Phone Soren Mart MD Primary Care Provider [phone] Encounter Details Date Type Department Care Team (Late st Contact Info) Description 01/15/2006 [facility] ON FILE Pain in Joint, Ankle and Foot (Primary Dx) Social History Tobacco Use Types Packs/Day Years Used Date Smoking Tobacco: Never Assessed Comments Unknown Sex and Gender Information Value Date Recorded Sex Assigned at Not on file Legal Sex Female 3:43 AM TELESCOPE REPAIRER Gender Identity Not on file Sexual Orientation Not on file documented as of this encounter Plan of Treatment Not on file documented as of this encounter Visit Diagnoses Diagnosis Pain in joint, ankle and foot- Primary documented in this encounter Care Teams Service Station Attendant Relationship Specialty Start Date End Date Soren Mart MD PCP - General 02/10/09 documented as of this encounter
--- OUTSIDE RECORDS SUMMARY | 2024-09-12 13:23 | XMS_ITS | Encounter Summary ---
Author Organization [facility] Address [address] [place] [address] Care Team Providers Care Community Relations Officer Name Role Phone Soren Mart MD Primary Care Provider [phone] Encounter Details Date Type Department Care Team (Late st Contact Info) Description 07/06/2007 Outpatient Historical [facility] Internal Medicine [address] [address] Inge Hutson MD NO ADDRESS ON FILE Social History Tobacco Use Types Packs/Day Years Used Date Smoking Tobacco: Never Assessed Comments Unknown Sex and Gender Information Value Date Recorded Sex Assigned at Not on file Legal Sex Female 3:43 AM CHICKEN AND FISH CLEANER Gender Identity Not on file Sexual Orientation Not on file documented as of this encounter Last Filed Vital Signs Vital Sign Reading Time Taken Comments Blood Pressure - - Pulse - - Temperature 37 C (98.6 F) 07/06/2007 11:45 AM CHICKEN AND FISH CLEANER Respiratory Rate - - Oxygen Saturation - - Inhaled Oxygen Concentration - - Weight 68 kg (150 lb) 07/06/2007 11:45 AM CHICKEN AND FISH CLEANER Height - - Body Mass Index - - documented in this encounter Plan of Treatment Not on file documented as of this encounter Visit Diagnoses Not on filedocumented in this encounter Care Teams Community Relations Officer Relationship Specialty Start Date End Date Soren Mart MD PCP - General 02/10/09 documented as of this encounter
--- OUTSIDE RECORDS SUMMARY | 2024-09-12 13:23 | XMS_ITS | Encounter Summary ---
Author Organization [employer] Address [address] [place] [address] Care Team Providers Care Environmental Health Physician Name Role Phone Soren Mart MD Primary Care Provider Encounter Details Date Type Department Care Team (Latest Contact Info) Description 07/06/2005 Outpatient Historical HIS [facility] LESLIE BLDG Conversion, History FX MID/PRX PHAL, HAND-CLOSE (Primary Dx) Social History Tobacco Use Types Packs/Day Years Used Date Smoking Tobacco: Never Assessed Comments Unknown Sex and Gender Information Value Date Recorded Sex Assigned at Not on file Legal Sex Female 3:43 AM ASSURANCE ANALYST Gender Identity Not on file Sexual Orientation Not on file documented as of this encounter Plan of Treatment Not on file documented as of this encounter Visit Diagnoses Diagnosis Closed fracture of middle or proximal phalanx or phalanges of hand- Primary documented in this encounter Care Teams Environmental Health Physician Relationship Specialty Start Date End Date Soren Mart MD PCP - General 02/10/09 documented as of this encounter
--- OUTSIDE RECORDS SUMMARY | 2024-09-12 13:23 | XMS_ITS | Clinical Summary ---
Author Organization [facility] Address [address] [place] [address] Phone Care Team Providers Care Sas Administrator Name Role Phone Denny Norman MD Primary Care Provider [phone] Allergies No known active allergies Medications prazosin [...] drink = 0.6 oz pur e alcohol) Tour Desk Utilities Answer Date Recorded In the past 12 months has hhgregg, Noval[employer], oil, or water [employer] threatened to shut off services in your [...] week 11/20/2023 How often do you attend formerly [facility] or caodaism services? Patient declined 11/20/2023 Do you belong to any clubs o r organizations such as evangelical groups, unions, fraternal or athletic groups, or [...] medical care, and heating? Patient declined 11/20/2023 [facility] - Occupational Stress Questionnaire Answer Date [...] place to sleep or slept in a chcf (including now)? No 11/20/2023 Education Answer Date Recorded What is the highest level of school you have completed or the highest degree you have received? Associate degree: academic program 01/08/2023 Sexually Active Control Partners Comments Yes None Male Comments No Sex and Gender Information Value Date Recorded Sex Assigned at Female 07/09/2023 12:53 PM SLAG WORKER Legal Sex Female 1:59 PM CDT Gender Identity Female 07/09/2023 12:53 PM SLAG WORKER Sexual Orientation Straight 07/09/2023 12 :53 PM SLAG WORKER Last Filed Vital Signs Vital Sign Reading [...] Additional history exists Influenza Immunization (#1) 02/15/202403/17, 04/13/2016, 04/12/2016, Additional history exists SARS-COV-2 Immunization ( season) 2024 10/12/2020, 09/14/2020 [...] Procedure Name Priority Date/Time Associated Diagnosis Comments HEPATITIS C ANTIBODY 02/24/2024 12:00 AM CDT HUMAN PAPILLOMA VIRUS (HPV) Routine 02/21/2023 2:35 PM CDT Well woman exam with routine gynecological exam PATHOLOGY CYTOLOGY DRY BOX OPERATOR Routine 02/21/2023 2:35 PM CDT Well woman exam with routine gynecological exam from Last 3 Months or Most Recently Relevant to Health Maintenance Results * HEPATITIS C ANTIBODY (02/24/2024 12:00 AM CDT) 02/24/2024 us Provider Scan CHEMISTRY ORDERABLES Final Resul t SCAN * PATHOLOGY CYTOLOGY DRY BOX OPERATOR (02/21/2023 2:35 PM CDT) SPECIMEN ADEQUACY Satisfactory for evaluation. Endocervical/transf ormation zone component is present. 03/11/2023 3:22 PM CDT [facility] GENERAL CATEGORY EPITHELIAL CELL ABNORMALITY. 03/11/2023 3:22 PM CDT [facility] DESCRIPTIVE DIAGNOSIS ASCUS: Atypical squamous cells of undetermined significance. 03/11/2023 3:22 PM CDT [facility] R FINDINGS Fungal organisms present, morphologically consistent with Ricarda species. 03/11/2023 3:22 PM CDT [facility] Automated Examination Analysis of this sample has been assisted by an automated imaging and review system ([employer] Imaging System, [employer], [place], [place]). This case is further evaluated and finalized by a corn detasseler machine operator and/or pathologist. 03/11/2023 3:22 PM CDT [facility] Disclaimer The PAP smear is [...] clinically indicated. 03/11/2023 3:22 PM CDT [facility] Other CERVIX UTERI STRUCTURE / Unknown Non-Phlebotomy Collection / Unknown 02/21/2023 2:35 PM CDT 02/21/2023 2:35 PM CDT us Amelia Beard APRN, [facility] PATHOLOGY/CYTOLOGY ORDER ADAM Final Result [facility] [address] [place] [address], * (ABNORMAL) HUMAN PAPILLOMA VIRUS (HPV) (02/21/2023 2:35 PM CDT) HPV OTHER HIGH RISK TYPES, PCR POSITIVE(A) NEGATIVE 02/25/2023 7:37 AM CDT [facility] Comment: Positive for one or [...] NEGATIVE NEGATIVE 02/25/2023 7:37 AM CDT [facility] Comment: A negative high-risk HPV [...] NEGATIVE NEGATIVE 02/25/2023 7:37 AM CDT [facility] Comment: A negative high-risk HPV [...] DIAGNOSTIC SCREENING 02/25/2023 7:37 AM CDT [facility] Other Non-Phlebotomy Collection / Unknown 02/21/2023 2:35 PM CDT 02/21/2023 2:35 PM CDT Narrative [facility] - 02/25/2023 7:37 AM CDT Performed by Real-Time Polymerase Chain Reaction (PCR) on the Caryl Marcellus 4800. This assay has been validated for use with post-aliquot samples from the [employer] T5000 processor. us Amelia Beard APRN, [facility] SEND OUTS Final Re sult [facility] [address] [place] [address], [place] from Last 3 Months or Most Recently Relevant to Health Maintenance Insurance MEDICAID [employer] Care Teams Sas Administrator Relationship Specialty Start Date End Date Denny Norman MD #[address] [address] PCP - General Family Medicine 01/08/23
--- OUTSIDE RECORDS SUMMARY | 2024-09-12 13:23 | XMS_ITS | Encounter Summary ---
Author Organization [employer] Address [address] [place] [address] Care Team Providers Care Transmission Mechanic Name Role Phone Soren Mart MD Primary Care Provider [phone] Encounter Details Date Type Department Care Team (Late st Contact Info) Description 05/21/2008 Outpatient Historical HIS [facility] Dario Coronel MD [address] [place] [address] Social History Tobacco Use Types Packs/Day Years Used Date Smoking Tobacco: Never Assessed Comments Unknown Sex and Gender Information Value Date Recorded Sex Assigned at Not on file Legal Sex Female 3:43 AM LEASE PICKER Gender Identity Not on file Sexual Orientation Not on file documented as of this encounter Plan of Treatment Not on file documented as of this encounter Procedures Procedure Name Priority Date/Time Associated Diagnosis Comments URINE CULTURE Routine 05/21/2008 11:47 AM LEASE PICKER documented in this encounter Results * URINE CULTURE (05/21/2008 11:47 AM LEASE PICKER) PRELIMINARY REPORT Pending [facility] FINAL REPORT No growth 24 hours [facility] 05/21/2008 11:4 7 AM LEASE PICKER 05/21/2008 6:10 PM LEASE PICKER us Dario Coronel MD MICROBIOLOGY - GENERAL ORDER ADAM Final Result INTERFACE SYSTEM Refer to clinic/hospital department [facility] CLIA# [id number] [address] [place] [address] documented in this encounter Visit Diagnoses Not on filedocumented in this encounter Care Teams Transmission Mechanic Relationship Specialty Start Date End Date Soren Mart MD PCP - General 02/10/09 documented as of this encounter
--- OUTSIDE RECORDS SUMMARY | 2024-09-12 13:23 | XMS_ITS | Encounter Summary ---
Author Organization [facility] Address [address] [place] [address] Care Team Providers Care Patient Transport Orderly Name Role Phone Soren Mart MD Primary Care Provider [phone] Encounter Details Date Type Department Care Team (Late st Contact Info) Description 07/06/2007 Orders Only [facility] Internal Medicine [address] [address] Inge Hutson MD NO ADDRESS ON FILE Social History Tobacco Use Types Packs/Day Years Used Date Smoking Tobacco: Never Assessed Comments Unknown Sex and Gender Information Value Date Recorded Sex Assigned at Not on file Legal Sex Female 3:43 AM ENVIRONMENTAL PROPERTY ASSESSOR Gender Identity Not on file Sexual Orientation Not on file documented as of this encounter Progress Notes * Inge Hutson MD - 10/28/2007 7:51 PM CDT TIME:11:07 am PATIENT`S HOME PHONE: PATIENT`S WORK PHONE: PATIENT`S INSURANCE: [facility] WHO TOOK THE CALL: Amelia Lee R GENERAL INFORMATION ALTERNATIVE PHONE NUMBER: [phone] or Jonas- Amelia WHO CALLED: Patient called. [...] on filedocumented in this encounter Care Teams Patient Transport Orderly Relationship Specialty Start Date End Date Soren Mart MD PCP - General 02/10/09 documented as of this encounter
--- OUTSIDE RECORDS SUMMARY | 2024-09-12 13:23 | XMS_ITS | Encounter Summary ---
Author Organization [facility] Address [address] [place] [address] Care Team Providers Care Shank Rander Name Role Phone Soren Mart MD Primary Care Provider Encounter Details Date Type Department Care Team (Late st Contact Info) Description 08/24/2007 Outpatient Historical [facility] Internal Medicine [address] [address] Soren Mart MD [address] [place] [address] Social History Tobacco Use Types Packs/Day Years Used Date Smoking Tobacco: Never Assessed Comments Unknown Sex and Gender Information Value Date Recorded Sex Assigned at Not on file Legal Sex Female 3:43 AM LAWN MOWER SHARPENER Gender Identity Not on file Sexual Orientation Not on file documented as of this encounter Plan of Treatment Not on file documented as of this encounter Visit Diagnoses Not on filedocumented in this encounter Care Teams Shank Rander Relationship Specialty Start Date End Date Soren Mart MD PCP - General 02/10/09 documented as of this encounter
--- OUTSIDE RECORDS SUMMARY | 2024-09-12 13:23 | XMS_ITS | Encounter Summary ---
Author Organization [facility] Address [address] [place] [address] Care Team Providers Care Information Technology Advisor Name Role Phone Soren Mart MD Primary Care Provider Encounter Details Date Type Department Care Team (Late st Contact Info) Description 04/30/2006 Outpatient Historical [facility] Internal Medicine [address] [address] Inge Hutson MD NO ADDRESS ON FILE Social History Tobacco Use Types Packs/Day Years Used Date Smoking Tobacco: Never Assessed Comments Unknown Sex and Gender Information Value Date Recorded Sex Assigned at Not on file Legal Sex Female 3:43 AM BULK INTAKE WORKER Gender Identity Not on file Sexual Orientation Not on file documented as of this encounter Plan of Treatment Not on file documented as of this encounter Visit Diagnoses Not on filedocumented in this encounter Care Teams Information Technology Advisor Relationship Specialty Start Date End Date Soren Mart MD PCP - General 02/10/09 documented as of this encounter
--- OUTSIDE RECORDS SUMMARY | 2024-09-12 13:23 | XMS_ITS | Encounter Summary ---
Author Organization [facility] Address [address] [place] [address] Care Team Providers Care Cephalometric Analyst Name Role Phone Soren Mart MD Primary Care Provider [phone] Encounter Details Date Type Department Care Team (Late st Contact Info) Description 07/08/2007 Orders Only [facility] Internal Medicine [address] [address] Inge Hutson MD NO ADDRESS ON FILE Social History Tobacco Use Types Packs/Day Years Used Date Smoking Tobacco: Never Assessed Comments Unknown Sex and Gender Information Value Date Recorded Sex Assigned at Not on file Legal Sex Female 3:43 AM TOOL COORDINATOR Gender Identity Not on file Sexual Orientation Not on file documented as of this encounter Progress Notes * Inge Hutson MD - 10/28/2007 8:18 PM CDT TIME:01:31 pm PATIENT`S HOME PHONE: PATIENT`S WORK PHONE: PATIENT`S INSURANCE: [facility] WHO TOOK THE CALL: Amelia Lee R GENERAL INFORMATION WHO CALLED: Patient`s mother called. CURRENT ALLERGY LIST: NO KNOWN DRUG ALLERGY PHARMACY NUMBER: [phone] PROBLEMS: CONGESTION: Patient complains of congestion. COUGH:Patient [...] on filedocumented in this encounter Care Teams Cephalometric Analyst Relationship Specialty Start Date End Date Soren Mart MD PCP - General 02/10/09 documented as of this encounter
--- OUTSIDE RECORDS SUMMARY | 2024-09-12 13:23 | XMS_ITS | Encounter Summary ---
Author Organization [employer] Address [address] [place] [address] Care Team Providers Care Bail Agent Name Role Phone Soren Mart MD Primary Care Provider [phone] Encounter Details Date Type Department Care Team (Late st Contact Info) Description 02/04/2008 Outpatient Historical [facility], Authorized P NO ADDRESS ON FILE Ingrid Giang NP [address] [facility] [address] [place] [address] Social History Tobacco Use Types Packs/Day Years Used Date Smoking Tobacco: Never Assessed Comments Unknown Sex and Gender Information Value Date Recorded Sex Assigned at Not on file Legal Sex Female 3:43 AM FLAVOR MAKER Gender Identity Not on file Sexual [...] PM CDT Narrative 02/04/2008 1:46 PM CDT [place] [address], [place] [address] Admit Date: 02/04/2008 ANNI BRYANT Sex: F Admit Prov: IZA STEVENS Date: 1990 Primary Care Prov: CMRN: [id number] Room: [facility] SSN: [id number] IMAGING SERVICES Ordering Prov: N/A Accession Number: [id number] Interpretation Sinuses complete 4 views 02/04/2008 History: Headache. Findings: The paranasal sinuses are clear. The orbits are intact. The soft tissues are unremarkable. Impression: Unremarkable study. . Dictated by: VANDANA MCCRARY 02/04/2008 13:43 Electronically signed by: VANDANA MCCRARY 02/04/2008 13:44 Procedure Note Vandana Mccrary - 02/04/2008 [facility] [address] [place], [place] [address] Admit Date: 02/04/2008 ANNI BRYANT Sex: F Admit Prov: ER, AUTHORIZED P Date: 1990 Primary Care Prov: CMRN: [id number] [facility] SSN: [id number] IMAGING SERVICES Ordering Prov: N/A Interpretation Sinuses complete 4 views 02/04/2008 History: Headache. Findings: The paranasal sinuses are clear. The orbits are intact. Thesoft tissues are unremarkable. Impression: Unremarkable study. . Dictated by: VANDANA MCCRARY 02/04/2008 13:43 Electronically signed by: VANDANA MCCRARY 02/04/2008 13:44 Ingrid Giang NP DIAGNOSTIC IMAGING ORDERABLES Final Result * URINALYSIS (02/04/2008 1:15 PM CDT) KETONES UA Negative Negative [facility] CLARITY UA Clear Clear [facility] BILIRUBIN UA Negative Negative [facility] PROTEIN UA Negative Negative [facility] LEUKOCYTE ESTERASE UA Negative Negative [facility] SPECIFIC GRAVITY UA 1.005 1.001 - 1.035 [facility] GLUCOSE UA Negative Negative [facility] BLOOD UA Negative Negative [facility] COLOR UA Pale Yellow [facility] NITRITE UA Negative Negative [facility] UROBILINOGEN UA <1 <=1 mg/dL [facility] PH UA 7.0 5.0 - 8.0 [facility] 02/04/2008 1:15 PM CDT 02/04/2008 1:17 PM CDT Ingrid Giang NP URINE ORDERABLES Final Result INTERFACE SYSTEM Refer to clinic/hospital department [facility] CLIA# [id number] [address] [place] [address] * URINALYSIS WITH REFLEX CULTURE (02/04/2008 1:15 PM CDT) [facility] URINE CULTURE ORDER Not indicated [facility] [...] CDT 02/04/2008 1:17 PM CDT Ingrid Giang WEIGHT CALLER URINE ORDERABLES Final Result Performing Organization Address [facility] Phone Number INTERFACE SYSTEM Refer to clinic/hospital department [facility] CLIA# [id number] [address] [place] [address] * POC , URINE (02/04/2008 1:11 PM CDT) [facility] , URINE POC Negative Negative [facility] SPECIFIC GRAVITY UA 1.010 1.001 - 1.035 [facility] Urine specimen (specimen) 02/04/2008 1:11 PM CDT 02/04/2008 1:11 PM CDT us Authorized P Er POINT OF CARE TESTING Final Resu lt Performing Organization Address [facility] Phone Number INTERFACE SYSTEM Refer to clinic/hospital department [facility] CLIA# [id number] [address] [place] [address] * POC URINALYSIS DIPSTICK (02/04/2008 1:09 PM CDT) [facility] CLARITY UA Clear [facility] PROTEIN UA Negative Negative [facility] BLOOD UA Negative Negative [facility] LEUKOCYTE ESTERASE UA Negative Negative [facility] UROBILINOGEN UA Normal <=1 mg/dL [facility] SPECIFIC GRAVITY UA 1.010 1.001 - 1.030 [facility] GLUCOSE UA Negative Negative [facility] COLOR UA Pale [facility] BILIRUBIN UA Negative Negative [facility] NITRITE UA Negative Negative [facility] PH UA 7.0 5.0 - 8.0 [facility] KETONES UA Negative Negative [facility] COMMENT, URINE Test not chrgd/to repeat [facility] Urine specimen (specimen) 02/04/2008 1:09 PM CDT 02/04/2008 1:09 PM CDT us Authorized P Er POINT OF CARE TESTING Edited INTERFACE SYSTEM Refer to clinic/hospital department [facility] CLIA# [id number] [address] [place] [address] * (ABNORMAL) CBC WITH DIFFERENTIAL (02/04/2008 11:50 [...] LAB LYMPHOCYTES 11(L) 16 - 45 % [facility] BASOPHILS ABSOLUTE 0.00 0.00 - 0.20 K/uL [facility] BASOPHILS 0 0 - 2 % [facility] MONOCYTE ABSOLUTE 0.31 0.10 - 1.30 K/uL [facility] MONOCYTES 3 3 - 13 % [facility] RBC MORPHOLOGY Normal Normal [facility] NEUTROPHIL ABSOLUTE 8.84(H) 1.90 - 7.00 [...] LAB EOSINOPHILS 0 0 - 7 % [facility] LYMPHOCYTE ABSOLUTE 1.25 0.70 - 4.50 K/uL [facility] Blood specimen (specimen) 02/04/2008 11:50 AM CDT 02/04/2008 11:55 AM CDT us Ingrid Giang NP HEMATOLOGY ORDERABLES Edited INTERFACE SYSTEM Refer to clinic/hospital department [facility] CLIA# [id number] [address] [facility] [place] [address] * MONONUCLEOSIS SCREEN (02/04/2008 11:50 AM CDT) MONONUCLEOSIS SCREEN Negative Negative [facility] Blood specimen (specimen) 02/04/2008 11:50 AM CDT 02/04/2008 11:55 AM CDT Ingrid Giang NP HEMATOLOGY ORDERABLES Final R esult Performing Organization Address [facility] de Phone Number INTERFACE SYSTEM Refer to clinic/hospital department [facility] CLIA# [id number] [address] [place] [address] * C-REACTIVE PROTEIN (02/04/2008 11:50 AM CDT) Pathologist [facility] CRP 0.2 0.0 - 0.8 mg/dL [facility] Blood specimen (specimen) 02/04/2008 11:50 AM CDT 02/04/2008 11:55 AM CDT Ingrid Giang NP CHEMISTRY ORDERABLES Final Re sult Performing Organization Address [facility] Phone Number INTERFACE SYSTEM Refer to clinic/hospital department [facility] CLIA# [id number] [address] [place] [address] * COMPREHENSIVE METABOLIC PANEL (02/04/2008 11:50 AM [...] and non- Americans is available on the [facility] Intranet at: [email or web address] Select: Lab Policies and Procedures Select: Reference Ranges - GFR Blood specimen (specimen) 02/04/2008 11:50 AM CDT 02/04/2008 11:55 AM CDT Ingrid Giang WEIGHT CALLER CHEMISTRY ORDERABLES Edited INTERFACE SYSTEM Refer to clinic/hospital department [facility] CLIA# [id number] [address] [place] [address] documented in this encounter Visit Diagnoses Not on filedocumented in this encounter Care Teams Bail Agent Relationship Specialty Start Date End Date Soren Mart MD PCP - General 02/10/09 documented as of this encounter
--- OUTSIDE RECORDS SUMMARY | 2024-09-12 13:23 | XMS_ITS | Encounter Summary ---
Author Organization [facility] Address [address] [place] [address] Care Team Providers Care Dye House Vat Worker Name Role Phone Soren Mart MD Primary Care Provider Encounter Details Date Type Department Care Team (Late st Contact Info) Description 06/04/2006 Outpatient Historical [facility] Internal Medicine [address] [address] Inge Hutson MD NO ADDRESS ON FILE Social History Tobacco Use Types Packs/Day Years Used Date Smoking Tobacco: Never Assessed Comments Unknown Sex and Gender Information Value Date Recorded Sex Assigned at Not on file Legal Sex Female 3:43 AM TELETYPEWRITER OPERATOR Gender Identity Not on file Sexual Orientation Not on file documented as of this encounter Plan of Treatment Not on file documented as of this encounter Visit Diagnoses Not on filedocumented in this encounter Care Teams Dye House Vat Worker Relationship Specialty Start Date End Date Soren Mart MD PCP - General 02/10/09 documented as of this encounter
--- OUTSIDE RECORDS SUMMARY | 2024-09-12 13:23 | XMS_ITS | Encounter Summary ---
Author Organization [facility] Address [address] [place] [address] Care Team Providers Care Pyrotechnic Assembler Name Role Phone Soren Mart MD Primary Care Provider [phone] Encounter Details Date Type Department Care Team (Late st Contact Info) Description 10/30/2005 Outpatient Historical [facility] Internal Medicine [address] [address] Inge Hutson MD NO ADDRESS ON FILE Social History Tobacco Use Types Packs/Day Years Used Date Smoking Tobacco: Never Assessed Comments Unknown Sex and Gender Information Value Date Recorded Sex Assigned at Not on file Legal Sex Female 3:43 AM GRAPHICS ARTIST Gender Identity Not on file Sexual Orientation [...] 10/30/2005 3:0 0 PM CDT Growth Chart: [facility] (Girls, 2- 20 Years) documented in this encounter Plan of Treatment Not on file documented as of this encounter Visit Diagnoses Not on filedocumented in this encounter Care Teams Pyrotechnic Assembler Relationship Specialty Start Date End Date Soren Mart MD PCP - General 02/10/09 documented as of this encounter
--- OUTSIDE RECORDS SUMMARY | 2024-09-12 13:23 | XMS_ITS | Encounter Summary ---
Author Organization [facility] Address [address] [place] [address] Care Team Providers Care Configuration Management Analyst Name Role Phone Soren Mart MD Primary Care Provider Encounter Details Date Type Department Care Team (Latest Contact Info) Description 03/14/2005 Outpatient Historical HIS [facility] DRS BLDG Conversion, History CHEST PAIN NEC (Primary Dx) Social History Tobacco Use Types Packs/Day Years Used Date Smoking Tobacco: Never Assessed Comments Unknown Sex and Gender Information Value Date Recorded Sex Assigned at Not on file Legal Sex Female 3:43 AM DOUBLE NEEDLE OPERATOR LOCKSTITCH Gender Identity Not on file Sexual Orientation [...] ORDERABLES Final R esult Performing Organization Address City/[facility] de Phone Number INTERFACE SYSTEM Refer [...] ORDERABLES Final R esult Performing Organization Address City/[facility] de Phone Number INTERFACE SYSTEM Refer [...] Primary documented in this encounter Care Teams Configuration Management Analyst Relationship Specialty Start Date End Date Soren Mart MD PCP - General 02/10/09 documented as of this encounter
--- OUTSIDE RECORDS SUMMARY | 2024-09-12 13:23 | XMS_ITS | Encounter Summary ---
Author Organization [employer] Address [address] [place] [address] Care Team Providers Care Naphthol Soaping Machine Operator Name Role Phone Soren Mart [...] on file Legal Sex Female 3:43 AM MORTGAGE UNDERWRITER Gender Identity Not on file Sexual Orientation [...] PM CDT Narrative 08/25/2008 9:51 PM CDT [address] [place] [address] [address] [place], [place] [address] Admit Date: 08/25/2008 ANNI BRYANT Sex: F Admit Prov: ER, AUTHORIZED P Date: 1990 Primary Care Prov: CMRN: [id number] Room: ER-A N: [address] [place] [address] IMAGING SERVICES Ordering Prov: N/A Accession Number: [id number] Interpretation EXAMINATION: LEFT FIFTH FINGER, 3 VIEWS. [...] Procedure Note Denver Panda MD - 08/25/2008 [address] [place], [place] [address] Admit Date: 08/25/2008 ANNI BRYANT Sex: F Admit Prov: ER, AUTHORIZED P Date: 1990 Primary Care Prov: CMRN: [id number] [id number] IMAGING SERVICES Ordering Prov: N/A Interpretation EXAMINATION: [...] premises documented in this encounter Care Teams Naphthol Soaping Machine Operator Relationship Specialty Start Date End Date Soren Mart MD PCP - General 02/10/09 documented as of this encounter
--- OUTSIDE RECORDS SUMMARY | 2024-09-12 13:23 | XMS_ITS | Encounter Summary ---
Author Organization [facility] Address 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 Can you prescribe a few for the stomach cramps. She has to go back to school to be able to be in [employer]'s performance. NAUSEA: Patient complains of nausea. The [...] on filedocumented in this encounter Care Teams Demonstrator Sewing Techniques Relationship Specialty Start Date End Date Soren Mart MD PCP - General 02/10/09 documented as of this encounter
--- OUTSIDE RECORDS SUMMARY | 2024-09-12 13:23 | XMS_ITS | Encounter Summary ---
Author Organization [facility] Address 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 CURRENT ALLERGY LIST: NO KNOWN DRUG ALLERGY PROBLEMS: all x 2 weeks CONGESTION: Patient complains of sinus congestion, complains of head congestion, complains of chestcongestion, complains of nasal congestion. COUGH:Patient complains of cough. symptoms had improved some, but now rigo in head worse. SECTION 1: REQUESTED ACTION [facility] 01/16/07 at 04:13 pm: MEDICATION REQUEST: Patient wants medications and can not come in. DOCTOR`S RESPONSE: [facility] 01/16/07 at 04:[address] Mccormick MEDICATIONS: Call in to Pharmacy DIFLUCAN ORAL TABLET 150 MG, 1 Every Day, 1 Dispensed, status: NEW PRESCRIPTION, 01/16/2007. MEDROL (SANDRA) ORAL TABLET 4 MG, 1 PACKET ORAL DIRECTED, 1 Dispensed, status: NEW PRESCRIPTION, 01/16/2007. ZITHROMAX Z-SANDRA ORAL TABLET 250 MG, TAKE DIRECTED, 1 Dispensed, status: CONTINUED, 01/16/2007. also steam inhalations FINAL ACTION: [facility] 01/16/07 at 04:15 pm Spoke with patient 01/16/07 at 04:15 pm. mom printed script Electronically Signed by: Maribeth Sanchez on Friday, April 06, 2007 documented in this encounter Plan of Treatment Not on file documented as of this encounter Visit Diagnoses Not on filedocumented in this encounter Care Teams Ui Architect Relationship Specialty Start Date End Date Soren Mart MD PCP - General 02/10/09 documented as of this encounter
--- OUTSIDE RECORDS SUMMARY | 2024-09-12 13:23 | XMS_ITS | Encounter Summary ---
Author Organization [employer] [facility] Address [address] [place] [address] Care Team Providers Care Dealer Analyst Name Role Phone Soren Mart MD Primary Care Provider [phone] Encounter Details Date Type Department Care Team (Late st Contact Info) Description 02/27/2012 Chart Note [facility] Services [place] [address] [facility] [address] [place] [address] Radha Mcallister, Physical Therapist Social History Tobacco Use Types Packs/Day Years Used Date Smoking Tobacco: Never Smokeless Tobacco: Never Alcohol Use Standard Drinks/Week Comments No 0 (1 standard drink = 0.6 oz pur e alcohol) Comments No Sex and Gender Information Value Date Recorded Sex Assigned at Not on file 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 Radha Mcallister P.T. [facility] Therapy Services [address] [place] [address]. [address] [place] [address] documented in this encounter Plan of Treatment Not on file documented as of this encounter Visit Diagnoses Not on filedocumented in this encounter Care Teams Dealer Analyst Relationship Specialty Start Date End Date Soren Mart MD PCP - General 02/10/09 documented as of this encounter
--- OUTSIDE RECORDS SUMMARY | 2024-09-12 13:23 | XMS_ITS | Encounter Summary ---
Author Organization [facility] Address 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
--- OUTSIDE RECORDS SUMMARY | 2024-09-12 13:23 | XMS_ITS | Encounter Summary ---
Author Organization [employer] Address 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
--- OUTSIDE RECORDS SUMMARY | 2024-09-12 13:23 | XMS_ITS | Encounter Summary ---
Author Organization [employer] Address 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 Gender Identity Not on file Sexual [...] AM CDT Narrative 08/24/2007 1:35 PM CDT [facility] [address] [place], [place] [address] Admit Date: 08/24/2007 ANNI BRYANT Sex: F Admit Prov: PORTER CHRISTIANSON Date: 1990 Primary Care Prov: ALYX REGAN CMRN: [id number] [id number] Ordering Prov: N/A Accession Number: [id number] Interpretation CT HEAD WITHOUT CONTRAST, 08/23/2005 History: [...] CUONG SHAFFER 08/24/2007 13:35 Transcribed: 08/24/2007 13:11 [facility] Procedure Note Provider, Historical - 08/24/2007 [address] [place], [place] [address] Admit Date: 08/24/2007 ANNI BRYANT Sex: F Admit Prov: PORTER CHRISTIANSON Date: 1990 Primary Care Prov: ALYX REGAN CMRN: [id number] [id number] [facility] Ordering Prov: N/A Interpretation CT [...] consciousness documented in this encounter Care Teams Property Management Supervisor Relationship Specialty Start Date End Date Porter Christianson MD PCP - General 02/10/09 documented as of this encounter
--- OUTSIDE RECORDS SUMMARY | 2024-09-12 13:23 | XMS_ITS | Encounter Summary ---
Author Organization [employer] Address [address] [place] [address] Care Team Providers Care Folder Stitcher Operator Name Role Phone Soren Mart MD Primary Care Provider Encounter Details Date Type Department Care Team (Latest Contact Info) Description 02/06/2009 Outpatient Historical HIS [facility] Soren Mart MD [address] [place] [address] Head Injury, Unspecified Social History Tobacco Use Types Packs/Day Years Used Date Smoking Tobacco: Never Alcohol Use Standard Drinks/Week Comments Not Asked 0 (1 standard drink = 0.6 oz pur e alcohol) Comments No Sex and Gender Information Value Date Recorded Sex Assigned at Not on file 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
[2024-09-12 13:52] VITALS: BP 126/81; PULSE 96
[2024-09-12 14:00] LABS: Basophils Absolute Auto 0.1 K/mm3 (0.0-0.1); Basophils Percent Auto 0.4 % (0.2-1.2); Eosinophils Absolute Auto 0.1 K/mm3 (0-0.3); Eosinophils Percent Auto 0.7 % (0-4.4); Hematocrit 33.4 % (37.0-47.0); Hemoglobin 10.9 g/dL (12.0-15.0); Immature Granulocyte Absolute 0.18 K/mm3 (0.00-0.031); Immature Granulocyte Percent A 1.1 % (0-0.5); Lymphocytes Percent Auto 13.2 % (18.3-44.2); Mean Corpuscular HGB Conc 32.6 g/dl (32-36); Mean Corpuscular Hemoglobin 30.5 pg (26-34); Mean Corpuscular Volume 93.6 fl (80-100); Mean Platelet Volume 9.7 fl (7.4-10.4); Monocytes Absolute Auto 0.8 K/mm3 (0.1-0.6); Monocytes Percent Auto 4.7 % (2.6-8.5); Neutrophils Absolute Auto 13.3 K/mm3 (1.3-6.7); Neutrophils Percent Auto 79.9 % (45.5-73.1); Platelet Count Result 291 k/mm3 (150-375); Red Blood Count 3.57 M/mm3 (4.2-5.4); Red Cell Distribution Width 13.9 % (11.5-14.5); White Blood Count 16.6 K/mm3 (4.5-10.0)
[2024-09-12 14:09] LABS: Add Urine Microscopic? YES; Appearance Urine Cloudy (Clear); Bacteria Urine 1+ /hpf; Bilirubin Urine Negative (Negative); Blood Urine Negative (Negative); Color Urine Yellow (Yellow); Creatinine Urine 173.8 mg/dL; Glucose Urine UA Negative (Negative); Ketones Urine Negative (Negative); Leukocyte Esterase Ur Trace LEU/UL (Negative); Nitrate Urine Negative (Negative); Non Pathogenic Casts 0-2; Protein Urine Trace mg/dL (Negative); Specific Grav Ur 1.019 (1.001-1.035); Squamous Epithelial Cell Urine Many /hpf (Few); Total Protein Urine Random 9 mg/dL; Ur Ttl Prot Creatinine Ratio 0.05 mg/mg (0-0.20); Urobilinogen Urine 0.2 mg/dL (<2.0); WBC Urine 0-5 /hpf (0-3)
[2024-09-12 14:12] LABS: Alanine Aminotransferase 11 U/L (6-35); Albumin Level 3.3 g/dL (3.5-5.1); Alkaline Phosphatase 134 U/L (38-126); Anion Gap 8 mmol/L (4-12); Aspartate Amino Transferase 15 U/L (14-36); Bilirubin,Total 0.2 mg/dL (0.2-1.3); Blood Urea Nitrogen 11 mg/dL (7-17); Calcium 8.2 mg/dL (8.4-10.2); Carbon Dioxide 18 mmol/L (22-30); Chloride 108 mmol/L (98-107); Estimated Glomerular Filt Rate > 60; Glucose 97 mg/dL (65-110); Potassium 3.9 mmol/L (3.4-5.0); Sodium 134 mmol/L (137-145); Uric Acid 4.9 mg/dL (2.5-7.5)
[2024-09-12 14:15] VITALS: BP 120/74; PULSE 91
[2024-09-12 14:17] VITALS: BP 131/96; PULSE 90
[2024-09-12 14:31] VITALS: BP 129/92; PULSE 94
[2024-09-12 14:40] VITALS: BMI 44.1
== END 2024-09-12 14:40 | disposition home or self-care (01) ==
LOC: ANHOBOP 13:20 → ANHOBPP 13:22
PROVIDERS: Student in an Organized Health Care Education/Training Program; Visit Provider Obstetrics & Gynecology
DX: O13.9 Gestational [pregnancy-induced] hypertension without significant proteinuria, unspecified trimester (principal); Z3A.00 Weeks of gestation of pregnancy not specified
CPT/HCPCS: 36415; 59025; 80053; 81001; 82570; 84156; 84550; 85025; 99199

== ENCOUNTER 2024-09-16 08:30 | Outpatient (RCR) | payer OTHER, SELFPAY ==
[2024-08-25 13:17] VITALS: BP 115/79; PULSE 95
[2024-08-27 15:45] VITALS: BP 115/79; PULSE 95
[2024-08-30 10:06] VITALS: BP 120/81; PULSE 104
[2024-09-01 16:52] LABS: Alanine Aminotransferase 11 U/L (6-35); Albumin Level 3.2 g/dL (3.5-5.1); Alkaline Phosphatase 117 U/L (38-126); Anion Gap 8 mmol/L (4-12); Aspartate Amino Transferase 13 U/L (14-36); Bilirubin,Total 0.1 mg/dL (0.2-1.3); Blood Urea Nitrogen 10 mg/dL (7-17); Calcium 9.2 mg/dL (8.4-10.2); Carbon Dioxide 21 mmol/L (22-30); Chloride 105 mmol/L (98-107); Estimated Glomerular Filt Rate > 60; Glucose 126 mg/dL (65-110); Potassium 4.1 mmol/L (3.4-5.0); Sodium 134 mmol/L (137-145)
[2024-09-01 17:46] VITALS: BP 132/84; PULSE 100
--- NOTE | 2024-09-01 18:38 | PC.NURSE ---
Called Dr. Powell with lab results and ultrasound results. October D/C home. Return for NST and MAX on Friday.
[2024-09-09 14:48] VITALS: BP 131/89; PULSE 93
--- NOTE | ~2024-09-16 | US_ITS ---
EXAM EXAMINATION: US OB limited w BPP DATE: 09/01/2024 18:50 CDT INDICATION: Cholestasis of suspected. COMPARISON: 07/16/2024 and 06/15/2024 TECHNIQUE: Real-time transabdominal obstetric ultrasound. Gestational age is provided as 37 weeks and 2 days FINDINGS: 2 para 1 There is a single intrauterine gestation in vertex presentation. The placenta is anterior on the submitted images No images of the cervix are submitted. cardiac activity and movement is noted with a heart rate of 155 beats per minute. Amniotic fluid index measures 10.4 cm (normal range is 6.6 cm - 27 cm). Biophysical profile: breathin of 2 movement: 2 of 2 tone: 2 of 2 Amniotic fluid index: 2 of 2 Total score: 8 of 8 IMPRESSION: Single intrauterine gestation in vertex presentation with cardiac activity identified. Biophysical profile measures 8 out of 8. Reviewed, dictated and finalized at location A. IMPRESSION: Single intrauterine gestation in vertex presentation with cardiac activit y identified. Biophysical profile measures 8 out of 8.
--- NOTE | ~2024-09-16 | US_ITS ---
EXAMINATION: US OB BPP wo non-stress DATE: 09/09/2024 12:57 INDICATION: Cholestasis during third trimester . Assess biophysical profile and amniotic flu id index TECHNIQUE: Real-time pelvic ultrasound was performed. The interpreting radiologist was not present fo r the study. COMPARISON: None. FINDINGS: There is a single living fetus in vertex presentation. The placenta is anterior. heart rate is 155 beats per minute (bpm). Amniotic fluid index measures 9.0 cm which is normal. (5th%-95%: 7.5-24. 4 cm at 37 weeks estimated gestational age) Biophysical profile performed by the technologist: breathing (30 sec sustained breathing in 30 minutes): 2 out of 2 movement (3 gross body movements in 30 minutes): 2 out of 2 tone (one episode of yuyyono-sopbsosjh-imckljb limb movement): 2 out of 2 Amniotic fluid pocket (2 cm): 2 out of 2 Total score: 8 out of 8 IMPRESSION: 1. Single living fetus in vertex presentation with heart rate of 155 bpm. 2. Biophysical profile 8 out of 8. 3. Normal amniotic fluid index of 9.0 cm. Reviewed, dictated and finalized at location B.
--- NOTE | ~2024-09-16 | US_ITS ---
EXAMINATION: US OB BPP wo non-stress DATE: 08/27/2024 15:03 INDICATION: Cholestasis. Third trimester. TECHNIQUE: Real-time pelvic ultrasound was performed. COMPARISON: Ultrasound 08/25/2024 FINDINGS: There is a single living fetus in vertex presentation. The placenta is anterior and fundal. he art rate is 148 beats per minute (bpm). The amniotic fluid index is 7.8 cm, which is normal. Biophysical profile performed by the technologist: breathing (30 sec sustained breathing in 30 minutes): 2 out of 2 movement (3 gross body movements in 30 minutes): 2 out of 2 tone (one episode of ipljgrx-ewzczbguv-emnonon limb movement): 2 out of 2 Amniotic fluid pocket (2 cm): 2 out of 2 Total score: 8 out of 8 IMPRESSION: 1. Single living fetus in vertex presentation. 2. Biophysical profile 8 out of 8. Reviewed, dictated and finalized at location L.
--- NOTE | ~2024-09-16 | US_ITS ---
EXAMINATION: US OB BPP wo non-stress DATE: 08/25/2024 13:52 INDICATION: Cholestasis. Third trimester. TECHNIQUE: Real-time pelvic ultrasound was performed. COMPARISON: Ultrasound 08/18/2024 FINDINGS: There is a single living fetus in vertex presentation. The placenta is anterior. heart rate is 136 beats per minute (bpm). The amniotic fluid index is 18.0 cm which is normal. Biophysical profile performed by the technologist: breathing (30 sec sustained breathing in 30 minutes): 2 out of 2 movement (3 gross body movements in 30 minutes): 2 out of 2 tone (one episode of clbvrku-nsylubcqj-miwhatd limb movement): 2 out of 2 Amniotic fluid pocket (2 cm): 2 out of 2 Total score: 8 out of 8 IMPRESSION: 1. Single living fetus in vertex presentation. 2. Biophysical profile 8 out of 8. Reviewed, dictated and finalized at location B.
== END 2024-10-06 17:09 | disposition home or self-care (01) ==
LOC: ANHOBOP 08:30
PROVIDERS: Visit Provider Obstetrics & Gynecology
DX: O09.893 Supervision of other high risk pregnancies, third trimester (principal); Z3A.35 35 weeks gestation of pregnancy
CPT/HCPCS: 36415; 59025; 76815; 76819; 80053

== ENCOUNTER 2024-09-16 11:45 | Inpatient (IN) | payer OTHER, SELFPAY ==
[2024-09-16] VITALS (54 sets, daily range): BP systolic 80–144; BP diastolic 59–104; PULSE 66–97; RESP 10–20; TEMP 36.2–36.9; O2SAT 96–100; BMI 46.6; BMI 45.3
--- NOTE | ~2024-09-16 | US_ITS ---
US OB limited 09/16/2024 11:00 Indication: MAX check Procedure: High-resolution Limited obstetrical ultrasound Comparison: 09/09/2024 Findings: There is a single living intrauterine in vertex presentation. Placenta is anterio r without previa. heart rate 175 BPM. MAX is normal measuring 9.35 cm (normal range for gestati onal age is 7.2-22.6 cm). Impression: 1: Normal MAX measures 9.35 cm. Reviewed, dictated and finalized at location A. Impression: 1: Normal MAX measures 9.35 cm.
--- NOTE | 2024-09-16 08:55 | PC.NURSE ---
Dr. Powell on unit and informed of this pt here for NSt with initial BP of 143/104 and pt c/o headache since last night that kept her awake and currently rating a 7-8 out of 10. Pt had hx of preeclampsia with first . Order received to change to clinical pt and draw labs and give Tylenol.
[2024-09-16] MEDS: ACETAMINOPHEN 500 MG TABLET 1000 MG PO (09:14)
--- OUTSIDE RECORDS SUMMARY | 2024-09-16 09:16 | XMS_ITS | Encounter Summary ---
Author Organization [facility] Address 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 CURRENT ALLERGY LIST: NO KNOWN DRUG ALLERGY PHARMACY NUMBER: [phone] PROBLEMS: feeling terrible, chest tight-wheezing sound, did [...] on filedocumented in this encounter Care Teams Quantity Surveyor Relationship Specialty Start Date End Date Soren Mart MD PCP - General 02/10/09 documented as of this encounter
--- OUTSIDE RECORDS SUMMARY | 2024-09-16 09:16 | XMS_ITS | Encounter Summary ---
Author Organization [facility] Address 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
--- OUTSIDE RECORDS SUMMARY | 2024-09-16 09:16 | XMS_ITS | Encounter Summary ---
Author Organization [employer] [facility] Address [address] [place] [address] Care Team Providers Care Online Producer Name Role Phone Soren Mart MD Primary Care Provider [phone] Encounter Details Date Type Department Care Team (Late st Contact Info) Description 02/27/2012 Chart Note [facility] [place] [address] [facility] [address] [place] [address] Radha Mcallister, Physical Therapist Social History Tobacco Use Types Packs/Day Years Used Date Smoking Tobacco: Never Smokeless Tobacco: Never Alcohol Use Standard Drinks/Week Comments No 0 (1 standard drink = 0.6 oz pur e alcohol) Comments No Sex and Gender Information Value Date Recorded Sex Assigned at Not on file 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 Radha Mcallister P.T. [facility] Therapy Services [address] [place] [address]. [address] [place] [address] documented in this encounter Plan of Treatment Not on file documented as of this encounter Visit Diagnoses Not on filedocumented in this encounter Care Teams Online Producer Relationship Specialty Start Date End Date Soren Mart MD PCP - General 02/10/09 documented as of this encounter
--- OUTSIDE RECORDS SUMMARY | 2024-09-16 09:16 | XMS_ITS | Encounter Summary ---
Author Organization [employer] Address [address] [place] [address] Care Team Providers Care Earth Moving Technician Name Role Phone Soren Mart MD [...] file Legal Sex Female 3:43 AM MANAGER MEMBERSHIP Gender Identity Not on file Sexual Orientation Not on file documented as of this encounter Plan of Treatment Not on file documented as of this encounter Procedures Procedure Name Priority Date/Time Associated Diagnosis Comments POC , URINE Routine 06/05/2006 9:20 AM MANAGER MEMBERSHIP HEMOGLOBIN AND HEMATOCRIT Routine 06/05/2006 9:11 AM MANAGER MEMBERSHIP documented in this encounter Results * POC , URINE (06/05/2006 9:20 AM MANAGER MEMBERSHIP) , URINE POC Negative Negative INTERFACE SYSTEM 06/05/2006 9:20 AM MANAGER MEMBERSHIP us David Guillermo MD POINT OF CARE TESTING Final Result INTERFACE SYSTEM Refer to clinic/hospital department * HEMOGLOBIN AND HEMATOCRIT (06/05/2006 9:11 AM MANAGER MEMBERSHIP) HEMOGLOBIN 13.3 11.8 - 14.8 g/dL INTERFACE SYSTEM HEMATOCRIT 39.0 35.5 - 44.0 % INTERFACE SYSTEM 06/05/2006 9:11 AM MANAGER MEMBERSHIP us David Guillermo MD HEMATOLOGY ORDERABLES Final Result INTERFACE SYSTEM Refer to clinic/hospital department documented in this encounter Visit Diagnoses Diagnosis Chronic tonsillitis- Primary documented in this encounter Care Teams Earth Moving Technician Relationship Specialty Start Date End Date Soren Matr MD PCP - General 02/10/09 documented as of this encounter
--- OUTSIDE RECORDS SUMMARY | 2024-09-16 09:16 | XMS_ITS | Encounter Summary ---
Author Organization [employer] Address 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 Gender Identity Not on file Sexual Orientation [...] CDT Narrative 08/24/2007 1:35 PM CDT [facility] [address] [place], [place] [address] Admit Date: 08/24/2007 ANNI BRYANT Sex: F Admit Prov: PORTER CHRISTIANSON Date: 1990 Primary Care Prov: ALYX REGAN CMRN: [id number] [id number] [facility] Ordering Prov: N/A Accession Number: [id number] Interpretation CT HEAD WITHOUT CONTRAST, 08/23/2005 History: [...] CUONG SHAFFER 08/24/2007 13:35 Transcribed: 08/24/2007 13:11 [facility] Procedure Note Provider, Historical - 08/24/2007 [place] [address] [place], [place] [address] Admit Date: 08/24/2007 ANNI BRYANT Sex: F Admit Prov: PORTER CHRISTIANSON Date: 1990 Primary Care Prov: ALYX REGAN CMRN: [id number] [facility] [id number] IM[facility]ING [facility] Ordering Prov: N/A Interpretation CT [...] consciousness documented in this encounter Care Teams Technician Anatomic Pathology Relationship Specialty Start Date End Date Porter Christianson MD PCP - General 02/10/09 documented as of this encounter
--- OUTSIDE RECORDS SUMMARY | 2024-09-16 09:16 | XMS_ITS | Encounter Summary ---
Author Organization [facility] Address 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 CURRENT ALLERGY LIST: NO KNOWN DRUG ALLERGY PHARMACY NUMBER: [phone] PROBLEMS: CONGESTION: Patient complains of congestion. COUGH:Patient [...] on filedocumented in this encounter Care Teams Clinical Laboratory Medical Director Relationship Specialty Start Date End Date Soren Mart MD PCP - General 02/10/09 documented as of this encounter
--- OUTSIDE RECORDS SUMMARY | 2024-09-16 09:16 | XMS_ITS | Encounter Summary ---
Author Organization [facility] Address 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 [...] on filedocumented in this encounter Care Teams Machine Technician Relationship Specialty Start Date End Date Soren Mart MD PCP - General 02/10/09 documented as of this encounter
--- OUTSIDE RECORDS SUMMARY | 2024-09-16 09:16 | XMS_ITS | Encounter Summary ---
Author Organization [facility] Address [address] [place] [address] Care Team Providers Care Irrigator Overhead Name Role Phone Soren Mart MD Primary Care Provider [phone] Encounter Details Date Type Department Care Team (Late st Contact Info) Description 06/04/2006 Orders Only [facility] Internal Medicine [address] [address] Inge Hutson MD NO ADDRESS ON FILE Social History Tobacco Use Types Packs/Day Years Used Date Smoking Tobacco: Never Assessed Comments Unknown Sex and Gender Information Value Date Recorded Sex Assigned at Not on file Legal Sex Female 3:43 AM DYNAMICS AX CONSULTANT Gender Identity Not on file Sexual Orientation Not on file documented as of this encounter Progress Notes * Inge Hutson MD - 03/30/2008 4:04 AM CDT WEIGHT: 134lbs BLOOD PRESSURE: 110/70 Right Arm Sitting NURSE NAME: Ashanti Rodriguze R CHIEF COMPLAINT blood in stool. HISTORY: [...] NEW PRESCRIPTION, 06/04/2006. LAB ORDERS: Order number: [id number] Test Ordered: HEMOCCULT SINGLE [id number] + PATIENT EDUCATION: Questions were allowed to stated satisfaction. PREVENTIVE COUNSELING The patient was counseled regarding diet. RETURN VISIT : please waive todays co-pay Electronically Signed by: Inge Hutson MD on Wednesday, June 07, 2006 documented in this encounter Plan of Treatment Not on file documented as of this encounter Visit Diagnoses Not on filedocumented in this encounter Care Teams Irrigator Overhead Relationship Specialty Start Date End Date Soren Mart MD PCP - General 02/10/09 documented as of this encounter
--- OUTSIDE RECORDS SUMMARY | 2024-09-16 09:16 | XMS_ITS | Encounter Summary ---
Author Organization [facility] Address 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 CURRENT ALLERGY LIST: NO KNOWN DRUG ALLERGY PHARMACY NUMBER: [phone] PROBLEMS: feeling bad , achy FEVER: Patient [...] on filedocumented in this encounter Care Teams Wide Area Network Systems Administrator Relationship Specialty Start Date End Date Soren Mart MD PCP - General 02/10/09 documented as of this encounter
--- OUTSIDE RECORDS SUMMARY | 2024-09-16 09:16 | XMS_ITS | Encounter Summary ---
Author Organization [email or web address] Address 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
--- OUTSIDE RECORDS SUMMARY | 2024-09-16 09:16 | XMS_ITS | Encounter Summary ---
Author Organization [facility] Address 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 Please refer to surgeon s operative report for specific details. Dictated by: RADIOLOGY, DEPARTMENT O Electronically signed by: RADIOLOGY, DEPARTMENT 10/01/2008 11:39 Transcribed: 10/01/2008 07:42 AMK Procedure Note Radiology, Radiologist - 10/01/2008 [address] [address] [place], [place] [address] Admit Date: 09/23/2008 ANNI BRYANT Sex: F Admit Prov: ELMO REICH Date: 1990 Primary Care Prov: CMRN: [id number] [id number] [facility] Ordering Prov: ELMO REICH Interpretation [...] AM CDT) , URINE POC Negative Negative [facility] Urine specimen (specimen) 09/23/2008 10:00 AM CDT 09/23/2008 10:00 AM CDT Elmo Reich MD POINT OF CARE TESTING Final Re sult Performing Organization Address City/[facility] de Phone Number INTERFACE SYSTEM Refer to clinic/hospital department [facility] CLIA# [id number] [address] [place] [address] * HEMOGLOBIN AND HEMATOCRIT (09/23/2008 9:50 AM CDT) HEMOGLOBIN 12.3 11.8 - 14.8 g/dL [facility] HEMATOCRIT 37.5 35.5 - 44.0 % [facility] Blood specimen (specimen) 09/23/2008 9:50 AM CDT 09/23/2008 10:05 AM CDT Narrative INTERFACE SYSTEM - 09/23/2008 10:15 AM CDT room 6 Elmo Reich MD HEMATOLOGY ORDERABLES Final Re sult Performing Organization Address [facility] Phone Number INTERFACE SYSTEM Refer to clinic/hospital department [facility] CLIA# [id number] [address] [place] [address] documented in this encounter Visit Diagnoses Not on filedocumented in this encounter Care Teams Tube Skiver Relationship Specialty Start Date End Date Soren Mart MD PCP - General 02/10/09 documented as of this encounter
--- OUTSIDE RECORDS SUMMARY | 2024-09-16 09:16 | XMS_ITS | Encounter Summary ---
Author Organization [employer] Address [address] [place] [address] Care Team Providers Care Dispute Resolution Analyst Name Role Phone Soren Mart MD Primary Care Provider [phone] Encounter Details Date Type Department Care Team (Late st Contact Info) Description 02/04/2008 Outpatient Historical [facility] Er, Authorized P NO ADDRESS ON FILE Ingrid Giang NP [address] [place] [address] Social History Tobacco Use Types Packs/Day Years Used Date Smoking Tobacco: Never Assessed Comments Unknown Sex and Gender Information Value Date Recorded Sex Assigned at Not on file 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 Findings: The paranasal sinuses are clear. The orbits are intact. The soft tissues are unremarkable. Impression: Unremarkable study. . Dictated by: VANDANA MCCRARY 02/04/2008 13:43 Electronically signed by: VANDANA MCCRARY 02/04/2008 13:44 Procedure Note Vandana Mccrary - 02/04/2008 [facility] [address] [place], [place] [address] Admit Date: 02/04/2008 ANNI BRYANT Sex: F Admit Prov: ER, AUTHORIZED P Date: 1990 Primary Care Prov: CMRN: [id number] [facility]: [id number] IMAGING SERVICES Ordering Prov: N/A Interpretation Sinuses complete 4 views 02/04/2008 History: Headache. Findings: The paranasal sinuses are clear. The orbits are intact. Thesoft tissues are unremarkable. Impression: Unremarkable study. . Dictated by: VANDANA MCCRARY 02/04/2008 13:43 Electronically signed by: VANDANA MCCRARY 02/04/2008 13:44 Ingrid Giang NP DIAGNOSTIC IMAGING ORDERABLES Final Result * URINALYSIS (02/04/2008 1:15 PM CDT) KETONES UA Negative Negative [facility] CLARITY UA Clear Clear [facility] BILIRUBIN UA Negative Negative [facility] PROTEIN UA Negative Negative [facility] LEUKOCYTE ESTERASE UA Negative Negative [facility] SPECIFIC GRAVITY UA 1.005 1.001 - 1.035 [facility] GLUCOSE UA Negative Negative [facility] BLOOD UA Negative Negative [facility] COLOR UA Pale Yellow [facility] NITRITE UA Negative Negative [facility] UROBILINOGEN UA <1 <=1 mg/dL [facility] PH UA 7.0 5.0 - 8.0 [facility] 02/04/2008 1:15 PM CDT 02/04/2008 1:17 PM CDT Ingrid Giang NP URINE ORDERABLES Final Result INTERFACE SYSTEM Refer to clinic/hospital department [facility] CLIA# [id number] [address] [place] [address] * URINALYSIS WITH REFLEX CULTURE (02/04/2008 1:15 PM CDT) [facility] URINE CULTURE ORDER Not indicated [facility] Comment: Criteria for a reflex culture include one or more of the following: Abnormal nitrite, leukocyte esterase, WBCs or RBCs. Lack of qualifying criteria does not exclude the possiblity of a urinary tract infection. Dilute urine, drug interference, etc. may decrease the sensitivity of the criteria analytes. Urine specimen (specimen) 02/04/2008 1:15 PM CDT 02/04/2008 1:17 PM CDT Ingrid Giang PENSION FUND MANAGER URINE ORDERABLES Final Result Performing Organization Address [facility] de Phone Number INTERFACE SYSTEM Refer to clinic/hospital department [facility] CLIA# [id number] [address] [place] [address] * POC , URINE (02/04/2008 1:11 PM CDT) [facility] , URINE POC Negative Negative [facility] SPECIFIC GRAVITY UA 1.010 1.001 - 1.035 [facility] Urine specimen (specimen) 02/04/2008 1:11 PM CDT 02/04/2008 1:11 PM CDT us Authorized P Er POINT OF CARE TESTING Final Resu lt Performing Organization Address [facility] de Phone Number INTERFACE SYSTEM Refer to clinic/hospital department [facility] CLIA# [id number] [address] [place] [address] * POC URINALYSIS DIPSTICK (02/04/2008 1:09 PM CDT) [facility] CLARITY UA Clear [facility] PROTEIN UA Negative Negative [facility] BLOOD UA Negative Negative [facility] LEUKOCYTE ESTERASE UA Negative Negative [facility] UROBILINOGEN UA Normal <=1 mg/dL [facility] SPECIFIC GRAVITY UA 1.010 1.001 - 1.030 [facility] GLUCOSE UA Negative Negative [facility] COLOR UA Pale [facility] BILIRUBIN UA Negative Negative [facility] NITRITE UA Negative Negative [facility] PH UA 7.0 5.0 - 8.0 [facility] KETONES UA Negative Negative [facility] COMMENT, URINE Test not chrgd/to repeat [facility] Urine specimen (specimen) 02/04/2008 1:09 PM CDT 02/04/2008 1:09 PM CDT us Authorized P Er POINT OF CARE TESTING Edited INTERFACE SYSTEM Refer to clinic/hospital department [facility] CLIA# [id number] [address] [place] [address] * (ABNORMAL) CBC WITH DIFFERENTIAL (02/04/2008 11:50 AM CDT) WBC 10.4(H) 4.0 - 9.8 K/uL [facility] MCH 30.4 27.2 - 32.6 pg [facility] MPV 10.3 9.3 - 12.4 fL [facility] HEMATOCRIT 37.5 35.5 - 44.0 % [facility] RDW-STDEV 42.9 37.1 - 48.7 fL [facility] RBC 4.08 3.90 - 4.90 M/uL [facility] MCHC 33.1 31.5 - 35.5 % [facility] MCV 91.9 82.0 - 99.0 fL [facility] PLATELETS 224 140 - 350 K/uL [facility] HEMOGLOBIN 12.4 11.8 - 14.8 g/dL [facility] RDW 12.7 11.5 - 14.5 % [facility] PLATELET EST. Consistent w/ count Normal [facility] LYMPHOCYTES 11(L) 16 - 45 % [facility] BASOPHILS ABSOLUTE 0.00 0.00 - 0.20 K/uL [facility] BASOPHILS 0 0 - 2 % [facility] MONOCYTE ABSOLUTE 0.31 0.10 - 1.30 K/uL [facility] MONOCYTES 3 3 - 13 % [facility] RBC MORPHOLOGY Normal Normal [facility] NEUTROPHIL ABSOLUTE 8.84(H) 1.90 - 7.00 K/uL [facility] NEUTROPHILS, SEG 85(H) 45 - 70 % [facility] ATYPICAL LYMPHOCYTE 1 0 - 5 % [facility] EOSINOPHIL ABSOLUTE 0.00 0.00 - 0.70 K/uL [facility] REVIEWED ON SMEAR Plt OK by Smear Rev. [facility] EOSINOPHILS 0 0 - 7 % [facility] LYMPHOCYTE ABSOLUTE 1.25 0.70 - 4.50 K/uL [facility] Blood specimen (specimen) 02/04/2008 11:50 AM CDT 02/04/2008 11:55 AM CDT us Ingrid Giang NP HEMATOLOGY ORDERABLES Edited INTERFACE SYSTEM Refer to clinic/hospital department [facility] CLIA# [id number] [address] [facility] [address] [place] [address] * MONONUCLEOSIS SCREEN (02/04/2008 11:50 AM CDT) MONONUCLEOSIS SCREEN Negative Negative [facility] Blood specimen (specimen) 02/04/2008 11:50 AM CDT 02/04/2008 11:55 AM CDT Ingrid Giang NP HEMATOLOGY ORDERABLES Final R esult Performing Organization Address [facility] de Phone Number INTERFACE SYSTEM Refer to clinic/hospital department [facility] CLIA# [id number] [address] [place] [address] * C-REACTIVE PROTEIN (02/04/2008 11:50 AM CDT) Pathologist [facility] CRP 0.2 0.0 - 0.8 mg/dL [facility] Blood specimen (specimen) 02/04/2008 11:50 AM CDT 02/04/2008 11:55 AM CDT Ingrid Giang NP CHEMISTRY ORDERABLES Final Re sult Performing Organization Address [facility] de Phone Number INTERFACE SYSTEM Refer to clinic/hospital department [facility] CLIA# [id number] [address] [place] [address] * COMPREHENSIVE METABOLIC PANEL (02/04/2008 11:50 AM CDT) ALKALINE PHOSPHATASE 65 35 - 187 U/L [facility] BILIRUBIN TOTAL 0.4 0.2 - 1.0 mg/dL [facility] CO2 23 22 - 30 mmol/L [facility] TOTAL PROTEIN 7.1 6.3 - 8.6 g/dL [facility] POTASSIUM 3.9 3.5 - 4.9 mmol/L [facility] GLUCOSE 101 60 - 110 mg/dL [facility] AST 16 12 - 32 U/L [facility] BUN 10 6 - 20 mg/dL [facility] CALCIUM 9.0 8.4 - 10.2 mg/dL [facility] Comment:Note new reference r percy effective 01/14/08 CHLORIDE 103 96 - 108 mmol/L [facility] ALBUMIN 4.4 3.2 - 4.5 g/dL [facility] CREATININE 0.64 0.51 - 0.95 mg/dL [facility] SODIUM 135 135 - 145 mmol/L [facility] ALT 14 0 - 31 U/L [facility] GFR, N/A:MDRD equation validated for pts. >18 yrs. >=60 mL/min/1 .7 sq meter [facility] GFR N/A:MDRD equation validated for pts. >18 yrs. >=60 mL/min/1 .7 sq meter [facility] Comment: Modification of Diet in Renal Disease (MDRD) study formula. Estimated GFR rate interpretative information for both Americans and non- Americans is available on the [facility] Intranet at: [email or web address] Select: Lab Policies and Procedures Select: Reference Ranges - GFR Blood specimen (specimen) 02/04/2008 11:50 AM CDT 02/04/2008 11:55 AM CDT Ingrid Giang PENSION FUND MANAGER CHEMISTRY ORDERABLES Edited INTERFACE SYSTEM Refer to clinic/hospital department [facility] CLIA# [id number] [address] [place] [address] documented in this encounter Visit Diagnoses Not on filedocumented in this encounter Care Teams Dispute Resolution Analyst Relationship Specialty Start Date End Date Soren Mart MD PCP - General 02/10/09 documented as of this encounter
--- OUTSIDE RECORDS SUMMARY | 2024-09-16 09:16 | XMS_ITS | Encounter Summary ---
Author Organization [facility] Address 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 LAB ORDERS: Order number: [id number] Test Ordered: REMOVE CERUMEN IMPACT [id number] 682.0-OTHER CELLULITIS AND ABSCESS ASSESSMENT: advised warm [...] on filedocumented in this encounter Care Teams Closer On Relationship Specialty Start Date End Date Soren Mart MD PCP - General 02/10/09 documented as of this encounter
--- OUTSIDE RECORDS SUMMARY | 2024-09-16 09:16 | XMS_ITS | Encounter Summary ---
Author Organization [facility] [facility] Address [address] [place] [address] Care Team Providers Care Process Equipment Operator Name Role Phone Soren Mart MD Primary Care Provider Encounter Details Date Type Department Care Team (Late st Contact Info) Description 03/14/2005 Outpatient Historical [facility] Support Serv. (Peds Cardiology-[place]) [address] 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
--- OUTSIDE RECORDS SUMMARY | 2024-09-16 09:16 | XMS_ITS | Encounter Summary ---
Author Organization [employer] Address [address] [place] [address] Care Team Providers Care Almond Huller Name Role Phone Soren Mart MD Primary Care Provider [phone] Encounter Details Date Type Department Care Team [...] file Legal Sex Female 3:43 AM HEAD START DIRECTOR Gender Identity Not on file Sexual [...] HEMATOLOGY ORDERABLES Ed ited Performing Organization Address City/State/[facility] Co de Phone Number INTERFACE [...] HEMATOLOGY ORDERABLES Ed ited Performing Organization Address [facility] Phone Number INTERFACE SYSTEM Refer to clinic/hospital department * HEMOGLOBIN A1C (12/27/2006 12:31 PM CDT) HEMOGLOBIN A1C 5.4 4.1 - 6.1 % of Hgb INTERFACE SYSTEM GLUCOSE, MEAN BLOOD 115 mg/dL INTERFACE SYSTEM 12/27/2006 12:3 1 PM CDT us Inge Hutson MD CHEMISTRY ORDERABLES Darrel juan Performing Organization Address [facility] Phone Number INTERFACE SYSTEM Refer to clinic/hospital department * TSH (12/27/2006 12:31 PM CDT) TSH 1.50 0.27 - 4.20 uU/mL INTERFACE SYSTEM 12/27/2006 12:3 1 PM CDT us Inge Hutson MD CHEMISTRY ORDERABLES Darrel juan Performing Organization Address [facility] Phone Number INTERFACE SYSTEM Refer [...] CHEMISTRY ORDERABLES Darrel juan Performing Organization Address [facility] Phone Number INTERFACE SYSTEM Refer to clinic/hospital department * FERRITIN (12/27/2006 12:31 PM CDT) FERRITIN 39 13 - 150 ng/mL INTERFACE SYSTEM 12/27/2006 12:3 1 PM CDT us Inge Hutson MD CHEMISTRY ORDERABLES Darrel juan Performing Organization Address City/[facility] Co de Phone Number INTERFACE [...] and non- Americans is available on the [facility] Intranet at: [email or web address] Select: Lab Policies and Procedures Select: Reference Ranges - GFR 12/27/2006 12:3 1 PM CDT Inge Hutson MD CHEMISTRY ORDERABLES Darrel juan Performing Organization Address City/[facility] Co de Phone Number INTERFACE SYSTEM Refer to clinic/hospital department documented in this encounter Visit Diagnoses Diagnosis Disturbance of skin sensation- Primary documented in this encounter Care Teams Almond Huller Relationship Specialty Start Date End Date Soren Mart MD PCP - General 02/10/09 documented as of this encounter
--- OUTSIDE RECORDS SUMMARY | 2024-09-16 09:16 | XMS_ITS | Clinical Summary ---
Author Organization [employer] Address [address] [place] [address] Care Team Providers Care Front Office Clerk Name Role Phone Soren Mart MD Primary Care Provider [phone] Allergies No known active allergies Medications ondansetron (ZOFRAN ODT) 4 mg Tablet, Rapid DissolveIndication s:Nausea Place 1 tab on top of tongue and let dissolve every 8 hours prn nausea.. 32 Tablet 3 7 Active mometasone-formote rol (DULERA) 100-5 mcg/actuation inhaler LOT:[id number] EX:11/2017 QTY:1 BOX. 1 Gram 7 Active [...] STL ABSTRACTION Provider, Abstract 08/05/2024 9:07 AM AUTO RADIATOR MECHANIC - 08/05/2024 11:59 PM AUTO RADIATOR MECHANIC Hospital Encounter [facility] [address] [place] [address] Jaydon Chase MD Discharge Disposition: [...] on file Legal Sex Female 3:43 AM AUTO RADIATOR MECHANIC Gender Identity Not on file Sexual [...] 113.4 kg (250 lb) 07/12/2020 4:03 PM AUTO RADIATOR MECHANIC Height 162.6 cm (5' 4 ) 07/12/2020 4:03 PM AUTO RADIATOR MECHANIC Body Mass Index 42.91 07/12/2020 4:03 PM AUTO RADIATOR MECHANIC Plan of Treatment Health Maintenance Due Date Last Done Comments Preventative Visit-Managed Medicaid 11/27/2017 11/26/2016, 01/17/2016, 11/02/2015, Additional history exists HPV/Cotest (21-29) 11/01/2020 11/02/2015 HPV/Cotest (30-65) 2021 11/02/2015 DTAP/TDAP/TD VACCINES (10 [...] UP PER FETUS Routine 08/05/2024 9:53 AM AUTO RADIATOR MECHANIC Encounter for ultrasound to assess growth Obesity during , antepartum CERV/VAG CYTO SCREEN PAP RLFX HPV Routine 11/02/2015 12:00 AM CDT from Last 3 Months or Most Recently Relevant to Health Maintenance Results * US OB FOLLOW UP PER FETUS (08/05/2024 9:53 AM AUTO RADIATOR MECHANIC) Anatomical Region Laterality Modality Pelvis Ultrasound 08/05/2024 9:32 AM AUTO RADIATOR MECHANIC Narrative 08/05/2024 9:57 AM AUTO RADIATOR MECHANIC STL FOLLOW UP ----- Pat. Name: ANNI BRYANT Study Date: 08/05/2024 9:32am Pat. NO: [id number] Referring MD: JAYDON CHASE MD Site: [facility] Tender: Bri Toledo RDMS : 1990 Age: 34 [...] Weeks of gestation O99.213: Obesity complicating Procedures 27594: Ultrasound, uterus, real time with image documentation, [...] 5 lb 8 oz EFW by Hadlock ([id number]) Head / Face / Neck Biometry: Cad Engineer 5.3 mm Extremities / Bony Struc [...] and date of were verified by the shake maker prior to the exam IMPRESSION ----- 1. [...] Pat. Name:Eladia BRYANT Date:08/05/2024 9:32am Pat. NO: [id number] MD:JAYDON CHASE [facility]Bri Toledo RDMS :1990Age:34 ----- INDICATION ----- [...] Weeks of gestation O99.213: Obesity complicating Procedures 78043: Ultrasound, uterus, real time withimage documentation, follow up, transabdominal approach per fetus HISTORY ----- OB History 2. Para 1 T1L1 MATERNAL ASSESSMENT ----- Physical Exam Initial weight 95 kg, 210 lb. Initial BMI 37.20kg/m METHOD ----- Transabdominal ultrasound examination ----- Holt . Number of fetuses: 1 DATING ----- GA by prior [id number] w + 3 d ANA by prior [...] 5 lb 8 oz EFW by Hadlock ([id number]) Head / Face / Neck Biometry: Cad Engineer 5.3mm Extremities / Bony Struc Biometry: [...] and date of were verified by the shake maker prior tothe exam IMPRESSION ----- 1. Single [...] (CP) (11/02/2015 12:00 AM CDT) CLINICAL INFORMATION [facility] Comment: Routine exam WELL WOMAN EXAM LAST MENSTRUAL PERIOD [employer] [facility] Comment:10/05/15 PREV PAP: [facility] Comment:Information not prov ided PREV BX: [employer] [facility] Comment:Information not prov ided SOURCE [facility] [facility] Comment:[employer] ADEQUACY: [facility] Comment: Satisfactory for evaluation. Endocervical/transformation zone component present. INTERPRETATION [facility] Comment:Negative for intraep ithelial lesion or malignancy. CYTOLOGY INFECTION [employer] [facility] Comment: Shift in vaginal maureen suggestive of bacterial vaginosis. COMMENT [facility] Comment: This Pap test has been evaluated with computer assisted technology. WEEKEND CAREGIVER: QU [employer] [facility] Comment: MLO, CT(ASCP) CT screening location: [place] [address] [place] [address] Test Performed at: [place] [address] [place] [address] DEBBIE CHOPRA MD 11/02/2015 us Delphine Lua KETTLE LOADER PATHOLOGY/CYTOLOGY ORDERABLES F inal Result [facility] [address] [place] [address] from Last 3 Months or Most Recently Relevant to Health Maintenance Insurance Advance Directives For more information, please contact: [phone] * Full Code (Latest Code Status on File) Date Activated Date Inactivated Comments 12/21/2013 9:08 PM 12/22/2013 6:32 PM Care Teams Front Office Clerk Relationship Specialty Start Date End Date Soren Mart MD PCP - General 02/10/09
--- OUTSIDE RECORDS SUMMARY | 2024-09-16 09:16 | XMS_ITS | Encounter Summary ---
Author Organization [facility] Address [address] [place] [address] Care Team Providers Care Border Patrol Agent Name Role Phone Soren Mart MD Primary Care Provider [phone] Encounter Details Date Type Department Care Team (Late st Contact Info) Description 02/04/2006 Orders Only [facility] Internal Medicine [address] [address] Inge Hutson MD NO ADDRESS ON FILE Social History Tobacco Use Types Packs/Day Years Used Date Smoking Tobacco: Never Assessed Comments Unknown Sex and Gender Information Value Date Recorded Sex Assigned at Not on file Legal Sex Female 3:43 AM TOOL GRINDER OPERATOR EXTERNAL Gender Identity Not on file Sexual Orientation Not on file documented as of this encounter Progress Notes * Inge Hutson MD - 03/24/2008 11:14 PM CDT TIME:01:35 pm PATIENT`S HOME PHONE: PATIENT`S WORK PHONE: PATIENT`S INSURANCE: [facility] [employer] [facility] WHO TOOK THE CALL: Amelia Lee R GENERAL INFORMATION ALTERNATIVE PHONE NUMBER: [phone]-Amelia WHO CALLED: Patient`s mother called. CURRENT ALLERGY LIST: NO KNOWN DRUG ALLERGY PHARMACY NUMBER: [phone] PROBLEMS: EARACHE: Patient complains of earache. The [...] on filedocumented in this encounter Care Teams Border Patrol Agent Relationship Specialty Start Date End Date Soren Mart MD PCP - General 02/10/09 documented as of this encounter
--- OUTSIDE RECORDS SUMMARY | 2024-09-16 09:16 | XMS_ITS | Encounter Summary ---
Author Organization [facility] Address 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 CURRENT ALLERGY LIST: NO KNOWN DRUG ALLERGY PROBLEMS: all x 2 weeks CONGESTION: Patient complains of sinus congestion, complains of head congestion, complains of chestcongestion, complains of nasal congestion. COUGH:Patient complains of cough. symptoms had improved some, but now rigo in head worse. SECTION 1: REQUESTED ACTION [facility] 01/16/07 at 04:13 pm: MEDICATION REQUEST: Patient wants medications and can not come in. DOCTOR`S RESPONSE: [facility] 01/16/07 at 04:[address] Mccormick MEDICATIONS: Call in to Pharmacy DIFLUCAN ORAL TABLET 150 MG, 1 Every Day, 1 Dispensed, status: NEW PRESCRIPTION, 01/16/2007. MEDROL (SANDRA) ORAL TABLET 4 MG, 1 PACKET ORAL DIRECTED, 1 Dispensed, status: NEW PRESCRIPTION, 01/16/2007. ZITHROMAX Z-SANDRA ORAL TABLET 250 MG, TAKE DIRECTED, 1 Dispensed, status: CONTINUED, 01/16/2007. also steam inhalations FINAL ACTION: [facility] 01/16/07 at 04:15 pm Spoke with patient 01/16/07 at 04:15 pm. mom printed script Electronically Signed by: Maribeth Sanchez on Friday, April 06, 2007 documented in this encounter Plan of Treatment Not on file documented as of this encounter Visit Diagnoses Not on filedocumented in this encounter Care Teams Hand Tube Winder Relationship Specialty Start Date End Date Soren Mart MD PCP - General 02/10/09 documented as of this encounter
--- OUTSIDE RECORDS SUMMARY | 2024-09-16 09:16 | XMS_ITS | Encounter Summary ---
Author Organization [employer] Address [address] [place] [address] Care Team Providers Care Casino Controller Name Role Phone Soren Mart MD Primary Care Provider [phone] Encounter Details Date Type Department Care Team (Latest Contact Info) Description 04/27/2008 Outpatient Historical [facility] [place] Conversion, History Urinary Tract Infection, Site not Specified Social History Tobacco Use Types Packs/Day Years Used Date Smoking Tobacco: Never Assessed Comments Unknown Sex and Gender Information Value Date Recorded Sex Assigned at Not on file Legal Sex Female 3:43 AM SCRUBBING MACHINE OPERATOR Gender Identity Not on file Sexual Orientation Not on file documented as of this encounter Plan of Treatment Not on file documented as of this encounter Procedures Procedure Name Priority Date/Time Associated Diagnosis Comments CHLAMYDIA/N. GONORRHOEAE, DNA Routine 04/27/2008 7:34 PM SCRUBBING MACHINE OPERATOR URINE CULTURE Routine 04/27/2008 7:34 PM SCRUBBING MACHINE OPERATOR documented in this encounter Results * URINE CULTURE (04/27/2008 7:34 PM SCRUBBING MACHINE OPERATOR) FINAL REPORT 50-100,000 colonies/mL Escherichia coli <10,000 colonies/mL Streptococcus Group B -NOTE: In women, recovery of Group B Streptococcus may be significant. However, in non- women, recovery in small quantities suggests contamination with blue urethral maureen. Normal urethral maureen also present. - Phoned report (with read back verified) to [facility] () 04/29/08 10:43:23 -- Faxed report(s): [phone] [facility] SUSCEPTIBILITY PERFORMED ON ESCHERICHIA COLI [facility] 04/27/2008 7:34 PM SCRUBBING MACHINE OPERATOR 04/27/2008 8:27 PM SCRUBBING MACHINE OPERATOR Narrative Organism Antibiotic Method Susceptibility Escherichia coli [...] ORDERA BLES Final Result Performing Organization Address City/[facility]/ZIP Co de Phone Number INTERFACE SYSTEM Refer to clinic/hospital department [facility] CLIA# [id number] [address] [place] [address] * CHLAMYDIA/N. GONORRHOEAE, DNA (04/27/2008 7:34 PM SCRUBBING MACHINE OPERATOR) CHLAMYDIA TRACHOMATIS DNA NOT DETECTED NOT DETECTED [facility] NEISSERIA GONORRHOEAE DNA NOT DETECTED NOT DETECTED [facility] Comment: Lab test performed by: [facility] [address] [address] ZURDO FIGUEROA MD Specimen of unknown material (specimen) URINE SPECIMEN / Unknown 04/27/2008 7:34 PM SCRUBBING MACHINE OPERATOR 04/27/2008 8:08 PM SCRUBBING MACHINE OPERATOR us History Conversion BODY FLUIDS AND STOOLS Final Result Performing Organization Address City/[facility]/ZIP Co de Phone Number INTERFACE SYSTEM Refer to clinic/hospital department [facility] CLIA# [id number] [address] [place] [address] documented in this encounter Visit Diagnoses Diagnosis Urinary tract infection, site not specified documented in this encounter Care Teams Casino Controller Relationship Specialty Start Date End Date Soren Mart MD PCP - General 02/10/09 documented as of this encounter
--- OUTSIDE RECORDS SUMMARY | 2024-09-16 09:16 | XMS_ITS | Encounter Summary ---
Author Organization [facility] Address [address] [place] [address] Care Team Providers Care Correctional Counselor Name Role Phone Soren Mart MD Primary Care Provider [phone] Encounter Details Date Type Department Care Team (Late st Contact Info) Description 06/04/2006 Outpatient Historical [facility] Internal Medicine [address] [address] Inge Hutson MD NO ADDRESS ON FILE Social History Tobacco Use Types Packs/Day Years Used Date Smoking Tobacco: Never Assessed Comments Unknown Sex and Gender Information Value Date Recorded Sex Assigned at Not on file Legal Sex Female 3:43 AM ELDERLY CAREGIVER Gender Identity Not on file Sexual Orientation Not on file documented as of this encounter Plan of Treatment Not on file documented as of this encounter Visit Diagnoses Not on filedocumented in this encounter Care Teams Correctional Counselor Relationship Specialty Start Date End Date Soren Mart MD PCP - General 02/10/09 documented as of this encounter
--- OUTSIDE RECORDS SUMMARY | 2024-09-16 09:16 | XMS_ITS | Encounter Summary ---
Author Organization [facility] Address [address] [place] [address] Care Team Providers Care Ruby On Rails Consultant Name Role Phone Soren Mart MD Primary Care Provider Encounter Details Date Type Department Care Team (Late st Contact Info) Description 08/24/2007 Outpatient Historical [facility] Internal Medicine [address] [address] Soren Mart MD [address] [place] [address] Social History Tobacco Use Types Packs/Day Years Used Date Smoking Tobacco: Never Assessed Comments Unknown Sex and Gender Information Value Date Recorded Sex Assigned at Not on file Legal Sex Female 3:43 AM SPLITTER HAND Gender Identity Not on file Sexual Orientation Not on file documented as of this encounter Plan of Treatment Not on file documented as of this encounter Visit Diagnoses Not on filedocumented in this encounter Care Teams Ruby On Rails Consultant Relationship Specialty Start Date End Date Soren Mart MD PCP - General 02/10/09 documented as of this encounter
--- OUTSIDE RECORDS SUMMARY | 2024-09-16 09:16 | XMS_ITS | Encounter Summary ---
Author Organization [employer] Address [address] [place] [address] Care Team Providers Care Doctor Of Nurse Anesthesia Practice Name Role Phone Soren Mart MD Primary Care Provider [phone] Encounter Details Date Type Department Care Team (Latest Contact Info) Description 02/06/2009 Outpatient Historical [facility] Soren Mart MD [address] [place] [address] Head Injury, Unspecified Social History Tobacco Use Types Packs/Day Years Used Date Smoking Tobacco: Never Alcohol Use Standard Drinks/Week Comments Not Asked 0 (1 standard drink = 0.6 oz pur e alcohol) Comments No Sex and Gender Information Value Date Recorded Sex Assigned at Not on file Legal Sex Female 3:43 AM CONSUMER EDUCATION SPECIALIST Gender Identity Not on file Sexual Orientation Not on file documented as of this encounter Plan of Treatment Not on file documented as of this encounter Visit Diagnoses Diagnosis Head injury, unspecified documented in this encounter Care Teams Doctor Of Nurse Anesthesia Practice Relationship Specialty Start Date End Date Soren Mart MD PCP - General 02/10/09 documented as of this encounter
--- OUTSIDE RECORDS SUMMARY | 2024-09-16 09:16 | XMS_ITS | Encounter Summary ---
Author Organization [facility] Address [address] [place] [address] Care Team Providers Care Wool Merchant Name Role Phone Soren Mart MD Primary Care Provider [phone] Encounter Details Date Type Department Care Team (Late st Contact Info) Description 07/06/2007 Outpatient Historical [facility] Internal Medicine [address] [address] Inge Hutson MD NO ADDRESS ON FILE Social History Tobacco Use Types Packs/Day Years Used Date Smoking Tobacco: Never Assessed Comments Unknown Sex and Gender Information Value Date Recorded Sex Assigned at Not on file Legal Sex Female 3:43 AM RUG DRY ROOM ATTENDANT Gender Identity Not on file Sexual Orientation Not on file documented as of this encounter Last Filed Vital Signs Vital Sign Reading Time Taken Comments Blood Pressure - - Pulse - - Temperature 37 C (98.6 F) 07/06/2007 11:45 AM RUG DRY ROOM ATTENDANT Respiratory Rate - - Oxygen Saturation - - Inhaled Oxygen Concentration - - Weight 68 kg (150 lb) 07/06/2007 11:45 AM RUG DRY ROOM ATTENDANT Height - - Body Mass Index - - documented in this encounter Plan of Treatment Not on file documented as of this encounter Visit Diagnoses Not on filedocumented in this encounter Care Teams Wool Merchant Relationship Specialty Start Date End Date Soren Mart MD PCP - General 02/10/09 documented as of this encounter
--- OUTSIDE RECORDS SUMMARY | 2024-09-16 09:16 | XMS_ITS | Encounter Summary ---
Author Organization [employer] Address [address] [place] [address] Care Team Providers Care Facing Cutting Machine Operator Name Role Phone Soren Mart MD Primary Care Provider Encounter Details Date Type Department Care Team (Latest Contact Info) Description 07/06/2005 Outpatient Historical [facility] [facility] Conversion, History FX MID/PRX PHAL, HAND-CLOSE (Primary Dx) Social History Tobacco Use Types Packs/Day Years Used Date Smoking Tobacco: Never Assessed Comments Unknown Sex and Gender Information Value Date Recorded Sex Assigned at Not on file Legal Sex Female 3:43 AM NEWSPAPER WRITER Gender Identity Not on file Sexual Orientation Not on file documented as of this encounter Plan of Treatment Not on file documented as of this encounter Visit Diagnoses Diagnosis Closed fracture of middle or proximal phalanx or phalanges of hand- Primary documented in this encounter Care Teams Facing Cutting Machine Operator Relationship Specialty Start Date End Date Soren Mart MD PCP - General 02/10/09 documented as of this encounter
--- OUTSIDE RECORDS SUMMARY | 2024-09-16 09:16 | XMS_ITS | Encounter Summary ---
Author Organization [employer] Address [address] [place] [address] Care Team Providers Care Conveyor Monitor Name Role Phone Soren Mart MD Primary Care Provider [phone] Encounter Details Date Type Department Care Team (Late st Contact Info) Description 05/21/2008 Outpatient Historical HIS [facility] Dario Coronel MD [facility] [place] [address] Social History Tobacco Use Types Packs/Day Years Used Date Smoking Tobacco: Never Assessed Comments Unknown Sex and Gender Information Value Date Recorded Sex Assigned at Not on file Legal Sex Female 3:43 AM SEO ANALYST Gender Identity Not on file Sexual Orientation Not on file documented as of this encounter Plan of Treatment Not on file documented as of this encounter Procedures Procedure Name Priority Date/Time Associated Diagnosis Comments URINE CULTURE Routine 05/21/2008 11:47 AM SEO ANALYST documented in this encounter Results * URINE CULTURE (05/21/2008 11:47 AM SEO ANALYST) PRELIMINARY REPORT Pending [facility] FINAL REPORT No growth 24 hours [facility] 05/21/2008 11:4 7 AM SEO ANALYST 05/21/2008 6:10 PM SEO ANALYST us Dario Coronel MD MICROBIOLOGY - GENERAL ORDER ADAM Final Result INTERFACE SYSTEM Refer to clinic/hospital department [facility] CLIA# [id number] [address] [place] [address] documented in this encounter Visit Diagnoses Not on filedocumented in this encounter Care Teams Conveyor Monitor Relationship Specialty Start Date End Date Soren Mart MD PCP - General 02/10/09 documented as of this encounter
--- OUTSIDE RECORDS SUMMARY | 2024-09-16 09:16 | XMS_ITS | Encounter Summary ---
Author Organization [facility] Address [address] [place] [address] Care Team Providers Care Set Builder Name Role Phone Soren Mart MD Primary Care Provider [phone] Encounter Details Date Type Department Care Team (Late st Contact Info) Description 05/20/2007 Orders Only [facility] Internal Medicine [address] [address] Inge Hutson MD NO ADDRESS ON FILE Social History Tobacco Use Types Packs/Day Years Used Date Smoking Tobacco: Never Assessed Comments Unknown Sex and Gender Information Value Date Recorded Sex Assigned at Not on file Legal Sex Female 3:43 AM FENCE MACHINE OPERATOR Gender Identity Not on file Sexual Orientation Not on file documented as of this encounter Progress Notes * Inge Hutson MD - 10/29/2007 9:49 AM CDT TIME:11:45 am PATIENT`S HOME PHONE: PATIENT`S WORK PHONE: PATIENT`S INSURANCE: [facility] [employer] [facility] WHO TOOK THE CALL: Amelia Lee R GENERAL INFORMATION ALTERNATIVE PHONE NUMBER: here WHO CALLED: Patient`s mother called. 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 Can you prescribe a few for the stomach cramps. She has to go back to school to be able to be in [employer]'s performance. NAUSEA: Patient complains of nausea. The [...] on filedocumented in this encounter Care Teams Set Builder Relationship Specialty Start Date End Date Soren Mart MD PCP - General 02/10/09 documented as of this encounter
--- OUTSIDE RECORDS SUMMARY | 2024-09-16 09:16 | XMS_ITS | Continuity of Care Document ---
Author Organization [facility] Address [address] [facility] [address] [place] [address] Phone Care Team Providers Care Steam Shovel Runner Name Role Phone Maia Horner Unavailable Unavailable Advance Directives Directive Yes / No Effective Date File Name No Information Encounters Encounter Description Practice Location Reason(s) For Visit Diagnoses Date Provider Providers Copied on Encounter [facility], [address] [place] [address] [address], [place], [place], [id number], [place] tel:[phone] [facility] No Information May-0 9-200 0 Siri Carvalho. [address] , [address], [place], [address], [place]. tel:[phone] Family History Family Member Type Diagnosis Age [...]
--- OUTSIDE RECORDS SUMMARY | 2024-09-16 09:16 | XMS_ITS | Encounter Summary ---
Author Organization [facility] [employer] Address [address] [place] [address] Care Team Providers Care Cafe Manager Name Role Phone Soren Mart MD Primary Care Provider [phone] Encounter Details Date Type Department Care Team (Late st Contact Info) Description 01/15/2006 [facility] ADDRESS ON FILE Pain in Joint, Ankle and Foot (Primary Dx) Social History Tobacco Use Types Packs/Day Years Used Date Smoking Tobacco: Never Assessed Comments Unknown Sex and Gender Information Value Date Recorded Sex Assigned at Not on file Legal Sex Female 3:43 AM WRAPPER STEMMER OPERATOR Gender Identity Not on file Sexual Orientation Not on file documented as of this encounter Plan of Treatment Not on file documented as of this encounter Visit Diagnoses Diagnosis Pain in joint, ankle and foot- Primary documented in this encounter Care Teams Cafe Manager Relationship Specialty Start Date End Date Soren Mart MD PCP - General 02/10/09 documented as of this encounter
--- OUTSIDE RECORDS SUMMARY | 2024-09-16 09:16 | XMS_ITS | Encounter Summary ---
Author Organization [facility] Address [address] [place] [address] Care Team Providers Care Fuse Spooler Name Role Phone Soren Mart MD Primary Care Provider [phone] Encounter Details Date Type Department Care Team (Late st Contact Info) Description 04/24/2007 Orders Only [facility] Internal Medicine [address] [address] Inge Hutson MD NO ADDRESS ON FILE Social History Tobacco Use Types Packs/Day Years Used Date Smoking Tobacco: Never Assessed Comments Unknown Sex and Gender Information Value Date Recorded Sex Assigned at Not on file Legal Sex Female 3:43 AM HUMAN RESOURCES DEPARTMENT SUPERVISOR Gender Identity Not on file Sexual Orientation Not on file documented as of this encounter Progress Notes * Inge Hutson MD - 10/29/2007 5:13 PM CDT TIME:02:07 pm PATIENT`S HOME PHONE: PATIENT`S WORK PHONE: PATIENT`S INSURANCE: [facility] WHO TOOK THE CALL: Amelia Lee R GENERAL INFORMATION ALTERNATIVE PHONE NUMBER: [phone] WHO CALLED: Patient`s mother called.Carly Cisneros CURRENT [...] on filedocumented in this encounter Care Teams Fuse Spooler Relationship Specialty Start Date End Date Soren Mart MD PCP - General 02/10/09 documented as of this encounter
--- OUTSIDE RECORDS SUMMARY | 2024-09-16 09:16 | XMS_ITS | Clinical Summary ---
Author Organization [facility] Address [address] [place] [address] Phone Care Team Providers Care Trim Carpenter Name Role Phone Denny Norman MD Primary Care Provider [phone] Allergies No known active allergies Medications prazosin [...] drink = 0.6 oz pur e alcohol) [employer] Answer Date Recorded In the past 12 months has [employer], [employer], oil, or water [employer] threatened to shut off services in your [...] 11/20/2023 How often do you attend [facility] or hindu services? Patient declined 11/20/2023 Do you belong to any clubs o r organizations such as baptist groups, unions, fraternal or athletic groups, or [...] medical care, and heating? Patient declined 11/20/2023 [facility] - Occupational Stress Questionnaire Answer Date Recorded [...] place to sleep or slept in a skilled nursing (including now)? No 11/20/2023 Education Answer Date Recorded What is the highest level of school you have completed or the highest degree you have received? Associate degree: academic program 01/08/2023 Sexually Active Control Partners Comments Yes None Male Comments No Sex and Gender Information Value Date Recorded Sex Assigned at Female 07/09/2023 12:53 PM LEGAL SPECIALIST Legal Sex Female 1:59 PM CDT Gender Identity Female 07/09/2023 12:53 PM LEGAL SPECIALIST Sexual Orientation Straight 07/09/2023 12 :53 PM LEGAL SPECIALIST Last Filed Vital Signs Vital Sign Reading [...] exam with routine gynecological exam PATHOLOGY CYTOLOGY GILL BOX TENDER Routine 02/21/2023 2:35 PM CDT Well woman exam with routine gynecological exam from Last 3 Months or Most Recently Relevant to Health Maintenance Results * HEPATITIS C ANTIBODY (02/24/2024 12:00 AM CDT) 02/24/2024 us Provider Scan CHEMISTRY ORDERABLES Final Resul t SCAN * PATHOLOGY CYTOLOGY GILL BOX TENDER (02/21/2023 2:35 PM CDT) SPECIMEN ADEQUACY Satisfactory for evaluation. Endocervical/transf ormation zone component is present. 03/11/2023 3:22 PM CDT [facility] GENERAL CATEGORY EPITHELIAL CELL ABNORMALITY. 03/11/2023 3:22 PM CDT [facility] DESCRIPTIVE DIAGNOSIS ASCUS: Atypical squamous cells of undetermined significance. 03/11/2023 3:22 PM CDT [facility] R FINDINGS Fungal organisms present, morphologically consistent with Ricarda species. 03/11/2023 3:22 PM CDT [facility] Automated Examination Analysis of this sample has been assisted by an automated imaging and review system ([employer] System, [employer], [place], [place]). This case is further evaluated and finalized by a piece jobber and/or pathologist. 03/11/2023 3:22 PM CDT [facility] Disclaimer The PAP smear is a screening [...] unless clinically indicated. 03/11/2023 3:22 PM CDT [facility] Other CERVIX UTERI STRUCTURE / Unknown Non-Phlebotomy Collection / Unknown 02/21/2023 2:35 PM CDT 02/21/2023 2:35 PM CDT us Amelia Beard APRN, [facility] PATHOLOGY/CYTOLOGY ORDER ADAM Final Result [facility] [address] [place] [address], * (ABNORMAL) HUMAN PAPILLOMA VIRUS (HPV) (02/21/2023 2:35 PM CDT) HPV OTHER HIGH RISK TYPES, PCR POSITIVE(A) NEGATIVE 02/25/2023 7:37 AM CDT [facility] Comment: Positive for one or more of the following Other High HPV types: 31, 33, 35, 39, 45, 51, 52, 56, 58, 59, 66, and 68. False-positive results have been reported with molecular assays. If these positive results are discordant with clinical/cytohistologic findings, repeat testing may be considered after an appropriate interval. HPV TYPE 16 NEGATIVE NEGATIVE 02/25/2023 7:37 AM CDT [facility] Comment: A negative high-risk HPV result does [...] 18 NEGATIVE NEGATIVE 02/25/2023 7:37 AM CDT [facility] Comment: A negative high-risk HPV result does [...] OR DIAGNOSTIC SCREENING 02/25/2023 7:37 AM CDT [facility] Other Non-Phlebotomy Collection / Unknown 02/21/2023 2:35 PM CDT 02/21/2023 2:35 PM CDT Narrative [facility] - 02/25/2023 7:37 AM CDT Performed by Real-Time Polymerase Chain Reaction (PCR) on the Caryl Marcellus 4800. This assay has been validated for use with post-aliquot samples from the [employer] T5000 processor. us Amelia Beard APRN, [facility] SEND OUTS Final Re sult [facility] [address] [place] [address], [place] from Last 3 Months or Most Recently Relevant to Health Maintenance Insurance MEDICAID [employer] Care Teams Trim Carpenter Relationship Specialty Start Date End Date Denny Norman MD [address] [address] PCP - General Family Medicine 01/08/23
--- OUTSIDE RECORDS SUMMARY | 2024-09-16 09:16 | XMS_ITS | Encounter Summary ---
Author Organization [facility] Address [address] [place] [address] Care Team Providers Care Lace Sewer Name Role Phone Soren Mart MD Primary Care Provider [phone] Encounter Details Date Type Department Care Team (Late st Contact Info) Description 09/07/2007 Orders Only [facility] Internal Medicine [address] [address] Inge Hutson MD NO ADDRESS ON FILE Social History Tobacco Use Types Packs/Day Years Used Date Smoking Tobacco: Never Assessed Comments Unknown Sex and Gender Information Value Date Recorded Sex Assigned at Not on file Legal Sex Female 3:43 AM CLIENT CARE REPRESENTATIVE Gender Identity Not on file Sexual Orientation Not on file documented as of this encounter Progress Notes * Inge Hutson MD - 11/19/2007 7:35 PM CDT TIME:02:22 pm PATIENT`S HOME PHONE: PATIENT`S WORK PHONE: PATIENT`S INSURANCE: [facility] [employer] [facility] WHO TOOK THE CALL: Thuan Cohen N Julia GENERAL INFORMATION ALTERNATIVE PHONE NUMBER: [phone] WHO CALLED: Patient`s mother called. CURRENT ALLERGY LIST: NO KNOWN DRUG ALLERGY PHARMACY NUMBER: [phone] [employer]a PROBLEMS: VAGINAL DISCHARGE: [...] some metrogel but would have her see fence installer foreman if her sx persist. MEDICATIONS: Call in [...] on filedocumented in this encounter Care Teams Lace Sewer Relationship Specialty Start Date End Date Soren Mart MD PCP - General 02/10/09 documented as of this encounter
--- OUTSIDE RECORDS SUMMARY | 2024-09-16 09:16 | XMS_ITS | Encounter Summary ---
Author Organization [facility] Address 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
--- OUTSIDE RECORDS SUMMARY | 2024-09-16 09:16 | XMS_ITS | Encounter Summary ---
Author Organization [email or web address] [facility] Address 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
--- OUTSIDE RECORDS SUMMARY | 2024-09-16 09:16 | XMS_ITS | Encounter Summary ---
Author Organization [employer] Address 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 [...] Procedure Note Denver Panda MD - 08/25/2008 [place] [address], [place] [address] Admit Date: 08/25/2008 ANNI BRYANT Sex: F Admit Prov: ER, AUTHORIZED P Date: 1990 Primary Care Prov: CMRN: [id number] [id number] Ordering Prov: N/A Interpretation EXAMINATION: [...] premises documented in this encounter Care Teams Handyman Relationship Specialty Start Date End Date Soren Mart MD PCP - General 02/10/09 documented as of this encounter
--- OUTSIDE RECORDS SUMMARY | 2024-09-16 09:16 | XMS_ITS | Encounter Summary ---
Author Organization [facility] Address 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
--- OUTSIDE RECORDS SUMMARY | 2024-09-16 09:16 | XMS_ITS | Encounter Summary ---
Author Organization [facility] Address [address] [place] [address] Phone Care Team Providers Care Core Cutter Name Role Phone Denny Norman MD Primary Care Provider [phone] Encounter Details Date Type Department Care Team (Late st Contact Info) Description 01/02/2023 Telephone [facility] [address] [place] [address] Provider, None [place] Social History Tobacco Use Types Packs/Day Years Used Date Smoking Tobacco: Never Assessed Comments Unknown Sex and Gender Information Value Date Recorded Sex Assigned at Female 07/09/2023 12:53 PM ORTHOPEDIC SHOE FITTER Legal Sex Female 1:59 PM CDT Gender Identity Female 07/09/2023 12:53 PM ORTHOPEDIC SHOE FITTER Sexual Orientation Straight 07/09/2023 12 :53 PM ORTHOPEDIC SHOE FITTER documented as of this encounter Miscellaneous Notes [...] see someone other than physician, such as MUD JACK NOZZLE WORKER, [place], resident? yes Patient reason for appointment/any current symptoms: establish care med refills Other information (including need for main galley scullion): no documented in this encounter Plan of Treatment Not on file documented as of this encounter Visit Diagnoses Not on filedocumented in this encounter Care Teams Core Cutter Relationship Specialty Start Date End Date Denny Norman MD [address] [address] PCP - General Family Medicine 01/08/23 documented as of this encounter
--- OUTSIDE RECORDS SUMMARY | 2024-09-16 09:16 | XMS_ITS | Encounter Summary ---
Author Organization [facility] Address 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 (Girls, 2- 20 Years) documented in this encounter Plan of Treatment Not on file documented as of this encounter Visit Diagnoses Not on filedocumented in this encounter Care Teams Machine Cloth Trimmer Relationship Specialty Start Date End Date Soren Mart MD PCP - General 02/10/09 documented as of this encounter
--- OUTSIDE RECORDS SUMMARY | 2024-09-16 09:16 | XMS_ITS | Encounter Summary ---
Author Organization [facility] Address 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
--- OUTSIDE RECORDS SUMMARY | 2024-09-16 09:16 | XMS_ITS | Encounter Summary ---
Author Organization [facility] Address [address] [place] [address] Care Team Providers Care Postmaster Relief Name Role Phone Soren Mart MD Primary Care Provider Encounter Details Date Type Department Care Team (Late st Contact Info) Description 04/30/2006 Outpatient Historical [facility] Internal Medicine [address] [address] Inge Hutson MD NO ADDRESS ON FILE Social History Tobacco Use Types Packs/Day Years Used Date Smoking Tobacco: Never Assessed Comments Unknown Sex and Gender Information Value Date Recorded Sex Assigned at Not on file Legal Sex Female 3:43 AM SPEECH AND HEARING DIRECTOR Gender Identity Not on file Sexual Orientation Not on file documented as of this encounter Plan of Treatment Not on file documented as of this encounter Visit Diagnoses Not on filedocumented in this encounter Care Teams Postmaster Relief Relationship Specialty Start Date End Date Soren Mart MD PCP - General 02/10/09 documented as of this encounter
--- OUTSIDE RECORDS SUMMARY | 2024-09-16 09:16 | XMS_ITS | Encounter Summary ---
Author Organization [facility] Address [address] [place] [address] Care Team Providers Care Research Technologist Name Role Phone Soren Mart MD Primary Care Provider [phone] Encounter Details Date Type Department Care Team (Late st Contact Info) Description 08/24/2007 Outpatient Historical [facility] Internal Medicine [address] [address] Soren Mart MD [address] [place] [address] Social History Tobacco Use Types Packs/Day Years Used Date Smoking Tobacco: Never Assessed Comments Unknown Sex and Gender Information Value Date Recorded Sex Assigned at Not on file Legal Sex Female 3:43 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
--- OUTSIDE RECORDS SUMMARY | 2024-09-16 09:16 | XMS_ITS | Encounter Summary ---
Author Organization [facility] Address 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
--- OUTSIDE RECORDS SUMMARY | 2024-09-16 09:16 | XMS_ITS | Clinical Summary ---
Author Organization [facility] Address [address] [place] [address] Care Team Providers Care [employer] Name Role Phone Joy Gardner [employer] Primary Care Provider + Source Comments [facility],non-owned Affiliates and Associated Physician Practices is amultiple site organization consisting of ambulatory clinics and hospital sitesin [place], [place], [place] and [place]. This disclosure is being madepursuant to the Care Everywhere program and may not contain all information available regarding this patient. Last updated 18.[facility] [employer] Allergies No known active allergies Medications * [...] LURIA, FLUZONE TRIVALENT; 6MO+) (IIV3) 04/13/2016,04/14/2014,05/21/2010 Covid Sustaination primary monoval ent 12+ yr 0.3mL Purple [...] age to complete this topic Care Teams [employer] Gunner Relationship Specialty Start Date End Date Joy Gardner APRN-CNP [address] [phone] PCP - General 02/13/21
[2024-09-16 09:30] LABS: Basophils Absolute Auto 0.1 K/mm3 (0.0-0.1); Basophils Percent Auto 0.4 % (0.2-1.2); Eosinophils Absolute Auto 0.2 K/mm3 (0-0.3); Eosinophils Percent Auto 1.2 % (0-4.4); Hemoglobin 10.6 g/dL (12.0-15.0); Immature Granulocyte Absolute 0.14 K/mm3 (0.00-0.031); Immature Granulocyte Percent A 0.9 % (0-0.5); Lymphocytes Absolute Auto 2.58 K/mm3 (0.9-3.2); Lymphocytes Percent Auto 15.8 % (18.3-44.2); Mean Corpuscular HGB Conc 32.1 g/dl (32-36); Mean Corpuscular Hemoglobin 30.3 pg (26-34); Mean Corpuscular Volume 94.3 fl (80-100); Mean Platelet Volume 9.6 fl (7.4-10.4); Monocytes Absolute Auto 0.9 K/mm3 (0.1-0.6); Monocytes Percent Auto 5.3 % (2.6-8.5); Neutrophils Absolute Auto 12.5 K/mm3 (1.3-6.7); Neutrophils Percent Auto 76.4 % (45.5-73.1); Platelet Count Result 299 k/mm3 (150-375); Red Cell Distribution Width 13.9 % (11.5-14.5); White Blood Count 16.4 K/mm3 (4.5-10.0)
[2024-09-16 09:44] LABS: Alanine Aminotransferase 10 U/L (6-35); Albumin Level 3.1 g/dL (3.5-5.1); Alkaline Phosphatase 122 U/L (38-126); Anion Gap 9 mmol/L (4-12); Aspartate Amino Transferase 16 U/L (14-36); Bilirubin,Total 0.2 mg/dL (0.2-1.3); Blood Urea Nitrogen 11 mg/dL (7-17); Carbon Dioxide 20 mmol/L (22-30); Chloride 105 mmol/L (98-107); Estimated Glomerular Filt Rate > 60; Glucose 101 mg/dL (65-110); Sodium 134 mmol/L (137-145); Uric Acid 4.2 mg/dL (2.5-7.5)
[2024-09-16 09:54] LABS: Add Urine Microscopic? NO; Appearance Urine Clear (Clear); Bilirubin Urine Negative (Negative); Blood Urine Negative (Negative); Color Urine Yellow (Yellow); Glucose Urine UA Negative (Negative); Ketones Urine Negative (Negative); Leukocyte Esterase Ur Negative LEU/UL (Negative); Nitrate Urine Negative (Negative); Protein Urine Negative (Negative); Specific Grav Ur 1.012 (1.001-1.035); Urobilinogen Urine 0.2 mg/dL (<2.0)
--- NOTE | 2024-09-16 10:32 | PC.NURSE ---
Dr. Powell updated on BP's and lab results except total protein creatinine clearance not back yet. No relief from headache. NST was reactive, but pt still not feeling baby move much. Pt has MAX scheduled. No additional testing ordered.
[2024-09-16 10:38] LABS: Creatinine Urine 54.1 mg/dL; Total Protein Urine Random 13 mg/dL; Ur Ttl Prot Creatinine Ratio 0.24 mg/mg (0-0.20)
--- NOTE | 2024-09-16 11:31 | PC.NURSE ---
Dr. Powell informed MAX 9.4 cm and total protein creatinine ratio is 0.240. requests me to tell the pt that her recommendation is to deliver her today instead of waiting until Friday for her scheduled C/S. Pt informed of MD recommendation and pt agreeable.
[2024-09-16] MEDS: LACTATED RINGERS 1,000 ML 125 ML IV CONT (12:18)
--- NOTE | 2024-09-16 12:26 | LDADM ---
This patient, Bel Lee, was admitted to Labor/Delivery/Recovery 119 on 09/16/24 at 11:45. Plans for repeat section were discussed with patient. Patient/family oriented to hospital policies and general routines including ID bracelet, bed and alarms, visiting hours, pain management, procedures, bathroom and other care routines, personal items, smoking policy, room service/diet and guest tray routines, infant security routines, and visiting hours. Patient/Family are encouraged to report perceived risks to care and to ask questions if they do not understand what they are told or what they should do. See OBIX for further documentation.
--- NOTE | 2024-09-16 12:35 | P.HP_ITS ---
H&P: HPI History of Present Illness Date/Time: 09/16/24 12:35 Chief Complaint: Headache Narrative: Patient at 39 weeks was sent to L and D from office visit for her surveillance testing which she was getting due several risk factors of BMA>40, she also complained of decreased movement. She had elevated blood pressures today, this is the second elevated blood pressure, also c/o severe headache started las t pm without relief from Tylenol. PIH labs normal. She continued to have headache. She is planning on repeat section which was scheduled for Friday. She has been counseled regarding risk benefits of repeat ceserean section and agrees to repeat for gestational hypertension with severe symptoms. She is currently on Tamiflu for flu which was positive on Sun. She is feeling better with flu symptoms. She denied having any headaches with her flu symptoms. Review of Systems Review of Systems: All systems reviewed & are unremarkable except as noted in HPI and below Constitutional: Constitutional: Reports no additional constitutional complaints and Denies headache(s) Eyes: Eyes: Denies spots in vision ENT: Reports system reviewed and no additional complaints, except as documented and Denies headache(s) Cardiovascular: Cardiovascular: Denies chest pain and Denies dyspnea Respiratory: Respiratory: Denies dyspnea Gastrointestinal: Gastrointestinal: Reports no additional gastrointestinal complaints Genitourinary: Genitourinary: Reports amenorrhea Musculoskeletal: Musculoskeletal: Reports no additional musculoskeletal complaints Integumentary/Breasts: Skin/Breast: Denies breast mass and Denies rash Neurologic: Denies headache(s) Psychiatric: Psychiatric: Reports no additional psychiatric complaints [facility] Past Medical History Medical History History of pre-eclampsia in prior , currently Genital warts due to HPV (human papillomavirus) Abnormal Pap smear of cervix delivery delivered Thoracic outlet syndrome GERD (gastroesophageal reflux disease) Anxiety Surgical History Surgical History [place] teeth extracted H/O colposcopy with cervical biopsy Family History Family History Mother Diabetes mellitus Father Heart disease Diabetes mellitus Hypertension Grandparent Cancer Social History Social History Smoking status: Never smoker Alcohol intake: never Substance use: never Substance use type: does not use Do You Feel Safe in your Home?: Yes Lack of Transportation: No Lack of Food: Never True Current Housing: I Have Housing Concerned About Future Housing: No Difficulty Paying Gas/Electric Bills: No Difficulty Paying for Meds: No Currently Unemployed: No Education: Associate Degree Difficulty w/ Childcare or Family Care: No Spiritual care concerns: No Meds Home Medications and Allergies Home Medications ?Medication ?Instructions ?Recorded ?Confirmed ?Type oseltamivir 45 mg capsule (Tamiflu) 45 mg PO Q12H 09/16/24 09/16/24 History Allergies Allergy/AdvReac Type Severity Reaction Status Date / Time No Known Allergies Allergy Verified 09/16/24 09:16 Vital Signs Vital Signs - 24 hr 09/16/24 09:16 09/16/24 09:16 09/16/24 09:28 Pulse Rate 87 85 97 Blood Pressure 131/92 H Blood Pressure [Left Arm] 143/104 H 131/92 H Oxygen Delivery 09/16/24 09:31 09/16/24 10:06 09/16/24 10:16 Pulse Rate 91 94 85 Blood Pressure 133/82 131/90 132/79 Blood Pressure [Left Arm] Oxygen Delivery 09/16/24 10:31 09/16/24 11:29 09/16/24 11:31 Pulse Rate 81 90 91 Blood Pressure 127/79 127/85 127/86 Blood Pressure [Left Arm] Oxygen Delivery 09/16/24 11:46 09/16/24 12:17 09/16/24 12:23 Pulse Rate 90 78 Blood Pressure 144/83 H 143/76 H Blood Pressure [Left Arm] Oxygen Delivery Room Air 09/16/24 12:31 Pulse Rate 81 Blood Pressure 135/73 Blood Pressure [Left Arm] Oxygen Delivery Exam Const: General: no acute distress Eyes: General: appearance normal, both eyes and all related structures Resp: Effort & Inspection: normal respiratory effort Cardio: Rate: regular rate GI: Other: Gravid no fundal tenderness no right upper quadrant pain Skin: General skin exam: no rashes or lesions noted Neuro: Cognition (Neuro): normal cognition Extrem: General: normal to inspection Psych: Mental Status: mental status grossly normal H&P: Results Labs Labs: Short CBC 09/16/24 Range/Units 09:24 WBC 16.4 H (4.5-10.0) K/mm3 Hgb 10.6 L (12.0-15.0) g/dL Hct 33.0 L (37.0-47.0) % Plt Count 299 (150-375) k/mm3 BMP 09/16/24 09:24 Sodium 134 L Potassium 4.0 Chloride 105 Carbon Dioxide 20 L BUN 11 Creatinine 0.62 L Glucose 101 Calcium 9.0 Liver Function 09/16/24 Range/Units 09:24 Total Bilirubin 0.2 (0.2-1.3) mg/dL AST 16 (14-36) U/L ALT 10 (6-35) U/L Alkaline Phosphatase 122 (38-126) U/L Albumin 3.1 L (3.5-5.1) g/dL Urine 09/16/24 Range/Units 09:24 Urine Color Yellow (Yellow) Urine Appearance Clear (Clear) Urine pH 7.0 (5.0-9.0) Ur Specific [place] 1.012 (1.001-1.035) Urine Protein Negative (Negative) mg/dL Urine Glucose (UA) Negative (Negative) mg/dL Assessment and Plan Assessment and plan (1) Gestational hypertension: Code(s): O13.9 - Gestational [-induced] hypertension without significant proteinuria, unspecified trimester Status: Acute Assessment and Plan: Will proceed with delivery via repeat section. Will start Magnesium post delivery. (2) S/P repeat low transverse : Code(s): Z98.891 - History of uterine scar from previous surgery Status: Acute
[2024-09-16] MEDS: FAMOTIDINE 20 MG/2 ML VIAL IV PUSH (12:50)
[2024-09-16] MEDS: ONDANSETRON INJ 4 MG/2 ML VIAL IV PUSH (12:50)
[2024-09-16 12:51] LABS: Syphilis IgG/IgM Antibody Negative (Negative)
--- NOTE | 2024-09-16 12:57 | WPDANESEPPF ---
Anes - Initial Pre Proc Eval Procedure: Operation Date: 09/16/24 13:00 Proposed Procedures p Section - Jaydon Powell MD Date/Time: 09/16/24 12:57 Surgeon: Jaydon Powell MD Pre Op Diagnosis: Repeat Section for PIH Patient Data Age: 34 Gender: F Height: 1.63 m Weight: 120 kg Last Vital Signs Pulse 81 09/16/24 12:31 BP 135/73 09/16/24 12:31 O2 Del Method Room Air 09/16/24 12:23 Allergies Allergy/AdvReac Type Severity Reaction Status Date / Time No Known Allergies Allergy Verified 09/16/24 09:16 Home Medications ?Medication ?Instructions ?Recorded ?Confirmed ?Type oseltamivir 45 mg capsule (Tamiflu) 45 mg PO Q12H 09/16/24 09/16/24 History Laboratory Tests 09/16/24 09/16/24 09:24 12:00 WBC 16.4 H K/mm3 (4.5-10.0) RBC 3.50 L M/mm3 (4.2-5.4) Hgb 10.6 L g/dL (12.0-15.0) Hct 33.0 L % (37.0-47.0) MCV 94.3 fl (80-100) MCH 30.3 pg (26-34) MCHC 32.1 g/dl (32-36) RDW 13.9 % (11.5-14.5) Plt Count 299 k/mm3 (150-375) MPV 9.6 fl (7.4-10.4) Immature Gran % (Auto) 0.9 H % (0-0.5) Neut % (Auto) 76.4 H % (45.5-73.1) Lymph % (Auto) 15.8 L % (18.3-44.2) [place] % (Auto) 5.3 % (2.6-8.5) Eos % (Auto) 1.2 % (0-4.4) Baso % (Auto) 0.4 % (0.2-1.2) Lymph # (Auto) 2.58 K/mm3 (0.9-3.2) [place] # (Auto) 0.9 H K/mm3 (0.1-0.6) Eos # (Auto) 0.2 K/mm3 (0-0.3) Baso # (Auto) 0.1 K/mm3 (0.0-0.1) Abs Immat Gran (auto) 0.14 H K/mm3 (0.00-0.031) Absolute Neuts (auto) 12.5 H K/mm3 (1.3-6.7) Absolute Nucleated RBC 0.000 K/mm3 (0.0-0.012) Nucleated RBC % 0.0 % (0.0-0.2) Sodium 134 L mmol/L (137-145) Potassium 4.0 mmol/L (3.4-5.0) Chloride 105 mmol/L (98-107) Carbon Dioxide 20 L mmol/L (22-30) Anion Gap 9 mmol/L (4-12) BUN 11 mg/dL (7-17) Creatinine 0.62 L mg/dL (0.7-1.0) Estim Creat Clear Calc Not Reportable Estimated GFR > 60 (59 - ) Glucose 101 mg/dL (65-110) Uric Acid 4.2 mg/dL (2.5-7.5) Calcium 9.0 mg/dL (8.4-10.2) Total Bilirubin 0.2 mg/dL (0.2-1.3) AST 16 U/L (14-36) ALT 10 U/L (6-35) Alkaline Phosphatase 122 U/L (38-126) Total Protein 6.0 L g/dL (6.3-8.2) Albumin 3.1 L g/dL (3.5-5.1) Urine Color Yellow (Yellow) Urine Appearance Clear (Clear) Urine pH 7.0 (5.0-9.0) Ur Specific [place] 1.012 (1.001-1.035) Urine Protein Negative mg/dL (Negative) Urine Glucose (UA) Negative mg/dL (Negative) Urine Ketones Negative mg/dL (Negative) Ur Blood (Man) Negative (Negative) Urine Nitrate Negative (Negative) Urine Bilirubin Negative (Negative) Urine Urobilinogen 0.2 mg/dL (<2.0) Leukocyte Esterase Rfl Negative CINDY/UL (Negative) U Random Total Protein 13 mg/dL Urine Creatinine 54.1 mg/dL Protein/Creat Ratio 2 0.24 H mg/mg (0-0.20) Syphilis IgG/IgM Ab Negative (Negative) HIV 1&2 Ab/P24 Ag 4thGn Pending Blood Type O Positive Antibody Screen Pending Patient hx anesthesia problems: none Family hx anesthesia problems: none Results Review: All pre-operative results and documents have been reviewed as part of the pre-operative evaluation. [facility] Past Medical History Medical History History of pre-eclampsia in prior , currently Genital warts due to HPV (human papillomavirus) Abnormal Pap smear of cervix delivery delivered Thoracic outlet syndrome GERD (gastroesophageal reflux disease) Anxiety Surgical History Surgical History [place] teeth extracted H/O colposcopy with cervical biopsy Family History Family History Mother Diabetes mellitus Father Heart disease Diabetes mellitus Hypertension Grandparent Cancer Social History Social History Smoking status: Never smoker Alcohol intake: never Substance use: never Substance use type: does not use Do You Feel Safe in your Home?: Yes Lack of Transportation: No Lack of Food: Never True Current Housing: I Have Housing Concerned About Future Housing: No Difficulty Paying Gas/Electric Bills: No Difficulty Paying for Meds: No Currently Unemployed: No Education: Associate Degree Difficulty w/ Childcare or Family Care: No Spiritual care concerns: No Anes - Eval Final PreProcedure Day of Procedure 09/16/24 12:57 Patient weight: morbidly obese Heart: regular rate and rhythm Lungs: clear to auscultation and normal air movement Airway: Mallampati scale class II Neurological: alert and oriented Last oral intake: >/= 8 hours ASA classification: III Emergent: no Anesthetic plan: proceed Anesthesia type and monitoring: regional spinal and standard monitoring Results Review: All pre-operative results and documents have been reviewed as part of the pre-operative evaluation. Informed Consent: The patient's anesthetic plan and its attendant risks and benefits were discussed with the patient/family/POA. Questions were solicited and answers provided to the satisfaction of the patient/family/POA.
[2024-09-16 13:04] LABS: HIV 1/2 Ab P24 Ag Result Negative (Negative)
[2024-09-16] MEDS: ceFAZolin 3 GM/D5W 100 ML 100 ML IVPB (13:15)
--- NOTE | 2024-09-16 14:28 | W.PM.OBCSD ---
OB - Delivery Note Procedure Delivery date: 09/17/24 Pre-op diagnosis: Gestational Hypertension and Previous Delivery Post-op Diagnosis: Same Delivery monitor: External FHT Prior to decision for section, ACOG/SMFM labor guidelines were considered and discussed with the patient and staff. Decision made to proceed with the section.: Yes Procedure Performed: Repeat Surgeon: Jaydon Powell MD Anesthesia type: Spinal Description of Procedure/Findings: Findings: female infant, 7lb8oz, 8,9 apgars, thin meconium stained fluid, normal fallopian tubes and ovaries bilaterally After informed consent, risks and benefits of the procedure was discussed with the patient. The patient was taken to the operating room where she was placed in the dorsal lithotomy position with leftward tilt. After the prior placed epidural anesthesia was found to be adequate, she was then prepped and draped in the usual sterile fashion. A Pfannenstiel skin incision was made with a scalpel and carried through to the underlying layer of fascia. The fascia was then nicked in the midline, extending bilaterally. The fascia was dissected off the rectus muscles bluntly and sharply, superiorly and inferiorly. The rectus muscles were in the midline, and peritoneum was identified and entered bluntly. The pelvic organs were visualized. The bladder blade was then inserted. The vesicouterine peritoneum was identified and bladder reflection below the palpable head position. The low transverse uterine incision was then made with the scalpel and extended with bilateral index fingers in a crescent-shaped fashion. The head was delivered and the rest of the was delivered. The nose and mouth suctioned. The cord was clamped twice and cut. The infant was then handed off to the awaiting nursery staff. The placenta was then delivered manually. The uterine cavity was sponge curetted. The uterus was then exteriorized. The uterine incision was then closed with 0 vicryl in a running locked fashion. Hemostasis noted. A second layer of 0 vicryl was used in an imbricating fashion. Hemostasis noted. The uterus was then returned to the abdomen. Bilateral gutters were cleared off all clots and debris. The uterine incision was noted to be hemostatic. Interceed placed on uterine incision and vertically on front of uterus. The muscle bellies were inspected and noted to be hemostatic. The subfascial layer was noted to be hemostatic, and the fascia was closed with 0 Vicryl in a running fashion. The subcutaneous layer was irrigated and then approximated with 3-0 Vicryl. The skin was closed with Insorb anisha. Skin dermabond applied at incision. Aquaplex dressing placed. All instruments, needle, and lap counts were correct x3. The patient was taken to the recovery room in stable condition. Specimen: Yes (Placenta) Estimated Blood Loss: 450 Urine Output: 300 Drains: No Packing: No Pathology: Yes (placenta with short cord) Complications: No immediate complications Condition: Stable Disposition: Floor Baby Date of : 09/16/24 Gestational Age by Date: 39 Infant gender: Female Weight (pounds): 7 Weight (ounces): 8 presentation: vertex Placenta delivery description: Manual Removal Cord Vessel Description: 3 Vessels score one minute: 8 score five minutes: 9
[2024-09-16] MEDS: LIDOCAINE 5% PATCH 1 PATCH TRANSDERM (19:00)
[2024-09-16] MEDS: KCL 20 MEQ/D5/0.45% SOD CHL 1,000 ML 125 ML IV CONT (20:40)
[2024-09-16] MEDS: OSELTAMIVIR PHOSPHATE 75 MG CAPSULE PO (20:40)
[2024-09-16] MEDS: diphenhydrAMINE HCl INJ 50 MG/ML VIAL 25 MG IV PUSH (20:49)
[2024-09-16] MEDS: HYDROcodone/acetaminophen (*CRX) 5-325 MG TABLET 1 TAB PO (20:49)
[2024-09-16] MEDS: ACETAMINOPHEN 325 MG TABLET 650 MG PO (23:47)
[2024-09-16] MEDS: KETOROLAC 15 MG/ML VIAL (*BKC) IV PUSH (23:47)
[2024-09-16 23:50] LABS: Basophils Absolute Auto 0.1 K/mm3 (0.0-0.1); Basophils Percent Auto 0.3 % (0.2-1.2); Eosinophils Absolute Auto 0.2 K/mm3 (0-0.3); Eosinophils Percent Auto 0.9 % (0-4.4); Hemoglobin 9.8 g/dL (12.0-15.0); Immature Granulocyte Absolute 0.12 K/mm3 (0.00-0.031); Immature Granulocyte Percent A 0.7 % (0-0.5); Lymphocytes Absolute Auto 1.71 K/mm3 (0.9-3.2); Lymphocytes Percent Auto 10.5 % (18.3-44.2); Mean Corpuscular HGB Conc 31.6 g/dl (32-36); Mean Corpuscular Hemoglobin 30.2 pg (26-34); Mean Corpuscular Volume 95.4 fl (80-100); Mean Platelet Volume 9.7 fl (7.4-10.4); Monocytes Absolute Auto 0.8 K/mm3 (0.1-0.6); Monocytes Percent Auto 4.8 % (2.6-8.5); Neutrophils Absolute Auto 13.5 K/mm3 (1.3-6.7); Neutrophils Percent Auto 82.8 % (45.5-73.1); Platelet Count Result 248 k/mm3 (150-375); Red Blood Count 3.25 M/mm3 (4.2-5.4); Red Cell Distribution Width 13.9 % (11.5-14.5); White Blood Count 16.3 K/mm3 (4.5-10.0)
[2024-09-17 00:30] VITALS: BP 127/77; PULSE 96; RESP 18; TEMP 36.8; O2SAT 96
[2024-09-17] MEDS: HYDROcodone/acetaminophen (*CRX) 5-325 MG TABLET 1 TAB PO ×2 (04:50→19:57)
[2024-09-17 04:53] VITALS: BP 127/77; PULSE 89; RESP 20; TEMP 36.3; O2SAT 99
[2024-09-17] MEDS: KETOROLAC 15 MG/ML VIAL (*BKC) IV PUSH ×2 (06:28→12:22)
[2024-09-17] MEDS: SIMETHICONE 80 MG TAB.CHEW PO ×3 (06:29→16:23)
[2024-09-17] MEDS: ACETAMINOPHEN 325 MG TABLET 650 MG PO ×3 (06:29→19:56)
--- NOTE | 2024-09-17 07:10 | WPDANLDPN2 ---
Anes-Prog Note L&D Date/Time: 09/17/24 07:10 Comfortable throughout: section Neuraxial method: spinal Epidural/Spinal procedure site: clean & non-tender Neuro status: Neuro function grossly intact. Cardiovascular status: normal Respiratory status: normal Airway patency: baseline Mental status: baseline Post-Op hydration status: normal Vital Signs: Last Vital Signs Temp 36.3 C L 09/17/24 04:53 Pulse 89 09/17/24 04:53 Resp 20 09/17/24 04:53 BP 127/77 09/17/24 04:53 Pulse Ox 99 09/17/24 04:53 O2 Del Method Room Air 09/16/24 18:30 Pain score (VAS): 310 I/O: Intake & Output 09/16/24 09/16/24 09/17/24 15:59 23:59 07:59 Intake Total 375 725 Output Total 347 612 4290 Balance -350 575 -1200 Post-procedural complaints: none Patient feedback: Patient satisfied with anesthetic care.
--- NOTE | 2024-09-17 07:10 | WPDANLDNPN2 ---
Anes-Prog Note L&D-Neuraxial Date/Time: 09/17/24 07:10 Neuraxial medications: intrathecal PF morphine Opiod-related complaints: none Patient feedback: Patient satisfied with post-operative pain management.
[2024-09-17 07:25] VITALS: BP 118/72; PULSE 98; RESP 16; TEMP 36.3; O2SAT 98
[2024-09-17] MEDS: DOCUSATE SODIUM 100 MG CAPSULE PO ×2 (09:06→16:23)
[2024-09-17] MEDS: OSELTAMIVIR PHOSPHATE 75 MG CAPSULE PO (09:06)
[2024-09-17] MEDS: POLYSACCHARIDE IRON COMPLEX 150 MG CAPSULE PO ×2 (09:06→16:23)
[2024-09-17] MEDS: MULTIVIT/MIN/PREN/FOL AC/IRON TABLET 1 TAB PO (09:06)
--- NOTE | 2024-09-17 11:00 | PC.NURSE ---
Pt taken off of droplet precautions d/t pt confirming that her first symptom was last evening and it has been 8 days since the start of the symptoms. Timeline of droplet precautions confirmed with Addison Rendon-administrative support coordinator.
--- NOTE | 2024-09-17 11:18 | PC.NURSE ---
Mother verbalizes she is able to independently latch with appropriate positioning and alignment. She denies any nipple discomfort and is responsively . Mother is also pumping. Instructions given on cleaning, care, usage, that there should be no pain, pumping schedule for milk production, collection, and storage of human milk. Patient was assessed for correct placement, flange size, to pump for comfort and nipple stretching/stimulation for adequate milk production every 3 hours (8 times in 24 hours) 1-2 times at night. Parents are encouraged to record the pumping schedule on the feeding sheet. Mother declines any additional assistance or education at this time. Mother is encouraged to call for assistance if her infant doesn?t latch, pain with latching, questions or concerns. Mother voiced understanding of information shared along with the mom/baby guide for an additional resource. Reported to the Primary RN.
--- NOTE | 2024-09-17 11:42 | PM.OBDSVD ---
DS: Admitting Diagnosis Discharge Date 09/19/24 Admitting Diagnosis Gestational hypertension Elective repeat section DS: Discharge Diagnosis Discharge Diagnosis (1) Delivery by section: Status: Acute OB - DS: Summary Hospital Course Hospital Course: She was admitted for gestational hypertension and recommended for delivery. She was scheduled previously for repeat for Mon. She did have severe headache. Blood pressures were labile, not severe range. She had an uncomplicated repeat section. She states headache completely resolved after delivery, her immediate post delivery blood pressures 120/70s, so Magnesium was not started. Blood pressures continued to be in normal range. She did well . On day 1 she was ambulating well, tolerating regular diet, no leg pain, no PIH symptoms. Blood pressures normal. She had adequate pain control. She was continued on Tamiflu which was started this week for pos flu. OB Procedures : NST and Ultrasound OB Procedures Intrapartum: OB Procedures: : None Peripartum Data Delivery Method: Section Procedures: Procedures Operation Date: 09/16/24 13:00 Actual Procedure Side Surgeon p Section Bilateral Jaydon Powell MD complications: none Status at Discharge Functional status at discharge: independent ambulation Time Spent with Patient Time attestation: Total time spent providing and/or coordinating discharge services: Exam Const: General: cooperative Orientation/consciousness: oriented to person, oriented to place and oriented to time HENMT: Face/Nose/Sinus: Normal external nose present Eyes: General: appearance normal, both eyes and all related structures Resp: Effort & Inspection: normal respiratory effort GI: Inspection: normal to inspection Other: dressing clean dry and intact Skin: General skin exam: normal color Neuro: General: oriented to person, oriented to place and oriented to time Extrem: General: normal to inspection and no calf tenderness Psych: Appearance: grossly normal Mental Status: mental status grossly normal DS: Data Data Completed and Pending Labs on day of discharge: Labs from last 24 hours 09/16/24 09/16/24 23:43 12:00 WBC 16.3 H RBC 3.25 L Hgb 9.8 L Hct 31.0 L MCV 95.4 MCH 30.2 MCHC 31.6 L RDW 13.9 Plt Count 248 MPV 9.7 Immature Gran % (Auto) 0.7 H Neut % (Auto) 82.8 H Lymph % (Auto) 10.5 L Perkins % (Auto) 4.8 Eos % (Auto) 0.9 Baso % (Auto) 0.3 Lymph # (Auto) 1.71 Perkins # (Auto) 0.8 H Eos # (Auto) 0.2 Baso # (Auto) 0.1 Abs Immat Gran (auto) 0.12 H Absolute Neuts (auto) 13.5 H Absolute Nucleated RBC 0.000 Nucleated RBC % 0.0 Syphilis IgG/IgM Ab Negative HIV 1&2 Ab/P24 Ag 4thGn Negative Blood Type O Positive Antibody Screen Negative Discharge Plan Discharge Attending physician on discharge: Jaydon Powell Consulting providers: Dashawn Jolley Discharging Clinician: Bryant Layton Patient Disposition: Home Activity: may shower, no straining and may drive after 2 weeks Diet: regular Wound Care Instructions: incision open to air Discharge Instructions: Return in one week to office for removal of dressing. Education: Mom and Baby Guide Given to: Mother Follow-Up: Call your delivering provider's office for an appointment to be seen in: 1 Week Mom and baby should come to the [facility] for the follow-up appointment. Appointment Date/Time: September 20, 2024 at 11:00 am What to expect at your follow-up visit: Blood Pressure Check Physical Assessment Call [phone] if you are unable to keep your appointment time. BREAST CARE: * Wear a snug supportive bra. * For engorgement discomfort: Breast Feeding: * Apply warm moist washcloths * Express milk as needed to relieve engorgement * Wear loose clothing Bottle Feeding: * May apply ice packs * For sore nipples: * Identify correct latch-on * Apply warm moist washcloths before and after nursing * Air dry nipples after nursing * May apply Lansinoh cream to nipples ABDOMINAL INCISION: * Allow incision to air dry * Do NOT use lotions for powders on your incision * When showering, allow soap and water to run over the incision, but do not wash incision * Until bleeding stops, use your blue bottle after urinating * Change your pad frequently throughout the day * No tub baths until seen by your physician - You may shower ACTIVITY: * Rest as much as possible. * Do not exercise or lift anything heavier than your baby (such as laundry or other children.) * Avoid stairs or driving as much as possible. * Do not put anything into the vagina. No douching, tampons, or sexual activity until seen by physician. NOTIFY PHYSICIAN IF YOU HAVE ANY QUESTIONS OR IF ANY OF THE FOLLOWING SYMPTOMS OCCUR: * If your episiotomy or incision becomes red, swollen, or more painful than what you have experienced in the hospital. * If your vaginal bleeding becomes foul smelling. * If your vaginal bleeding becomes more heavy than a period or if your bleeding changes from pink to bright red. However, you may pass an occasional walnut-sized clot once or twice for the first week . * If you experience a sharp, shooting pain in you calves. * If you discover a hard, reddened area on your breast or if you experience flu-like symptoms. DIET: * Eat regular, well-balanced meals. * Drink plenty of fluids daily. If , drink to thirst. Patient Language: Romansh Stand Alone Forms: General Discharge Information Follow-up/Referrals: Jaydon Powell MD [Physician] - 1 Week (Call for appointment) Discharge Medications: New hydrocodone-acetaminophen 5-325 mg Tablet 1 tablet PO Q3H PRN (Reason: Breakthrough Pain Rated 4-6) Qty: 20 0RF ibuprofen 600 mg Tablet 600 mg PO Q6H Qty: 20 0RF Continued oseltamivir [Tamiflu] 75 mg capsule 75 mg PO Q12H Date of admission: 09/16/24 11:45 Primary Care Provider: UNKNOWN,DOCTOR Admitting Provider: Jaydon Powell Attending physician on admission: Jaydon Powell Condition: Stable
--- NOTE | 2024-09-17 12:00 | PM.OBPNVD ---
OB - PN: Subj Subjective Date/time seen: 09/17/24 12:00 Interval history: No headache, or leg pain. No scotomata. She states she feels good. She states headache stopped soon after delivery, her blood pressures were good after delivery. Patient comments: pain well controlled, tolerating diet and flatus present Happy Jack feeding status: breast and bottle feeding OB - PN: Obj Data Labs 09/16/24 23:43 09/16/24 09:24 Labs: Laboratory Results - last 24 hr 09/16/24 09/16/24 12:00 23:43 WBC 16.3 H RBC 3.25 L Hgb 9.8 L Hct 31.0 L MCV 95.4 MCH 30.2 MCHC 31.6 L RDW 13.9 Plt Count 248 MPV 9.7 Immature Gran % (Auto) 0.7 H Neut % (Auto) 82.8 H Lymph % (Auto) 10.5 L [place] % (Auto) 4.8 Eos % (Auto) 0.9 Baso % (Auto) 0.3 Lymph # (Auto) 1.71 [place] # (Auto) 0.8 H Eos # (Auto) 0.2 Baso # (Auto) 0.1 Abs Immat Gran (auto) 0.12 H Absolute Neuts (auto) 13.5 H Absolute Nucleated RBC 0.000 Nucleated RBC % 0.0 Syphilis IgG/IgM Ab Negative HIV 1&2 Ab/P24 Ag 4thGn Negative Blood Type O Positive Antibody Screen Negative OB - PN A/P Assessment and Plan (1) Delivery by section: Status: Acute Assessment and Plan: POD1. She is doing well. Continue routine post care. (2) Gestational hypertension: Code(s): O13.9 - Gestational [-induced] hypertension without significant proteinuria, unspecified trimester Status: Acute Assessment and Plan: Normal blood pressures, no PIH symptoms. Time Spent With Patient Time: Total time spent is greater than 50% in coordination of care (as documented) at patient's floor/unit and/or counseling patient: Exam Const: General: comfortable and no acute distress Resp: Effort & Inspection: normal respiratory effort GI: Other: dressing intact, dry Extrem: General: normal to inspection and no calf tenderness Psych: Mental Status: mental status grossly normal Affect: normal affect
[2024-09-17 12:23] VITALS: BP 131/88; PULSE 110; RESP 18; TEMP 36.8; O2SAT 98
[2024-09-17] MEDS: HYDROcodone/acetaminophen (*CRX) 10-325 MG TABLET 1 TAB PO (15:02)
[2024-09-17] MEDS: IBUPROFEN 600 MG TABLET PO (19:57)
[2024-09-17 20:00] VITALS: BP 103/78; PULSE 99; RESP 18; TEMP 36.7; O2SAT 99
[2024-09-18] MEDS: OSELTAMIVIR PHOSPHATE 75 MG CAPSULE PO (01:08)
[2024-09-18] MEDS: IBUPROFEN 600 MG TABLET PO ×4 (01:59→21:18)
[2024-09-18] MEDS: ACETAMINOPHEN 325 MG TABLET 650 MG PO ×4 (01:59→21:18)
[2024-09-18] MEDS: HYDROcodone/acetaminophen (*CRX) 5-325 MG TABLET 1 TAB PO ×2 (06:57→22:46)
[2024-09-18 07:00] VITALS: BP 135/85; PULSE 98; RESP 16; TEMP 36.7; O2SAT 98
[2024-09-18] MEDS: POLYSACCHARIDE IRON COMPLEX 150 MG CAPSULE PO ×2 (07:52→17:46)
[2024-09-18] MEDS: DOCUSATE SODIUM 100 MG CAPSULE PO ×2 (07:52→17:46)
[2024-09-18] MEDS: MULTIVIT/MIN/PREN/FOL AC/IRON TABLET 1 TAB PO (07:52)
[2024-09-18] MEDS: SIMETHICONE 80 MG TAB.CHEW PO ×3 (07:53→17:46)
--- NOTE | 2024-09-18 10:34 | PM.OBPNVD ---
OB - PN: Subj Subjective Date/time seen: 09/18/24 10:34 S: Diet ambulated without difficulty. Still moderately uncomfortable O: VSS afebrile Abdomen: Positive bowel sounds soft appropriately tender. Labs: Noted A: Doing well postoperatively, pain reasonably well controlled. P: Continue routine postop/ care. Home tomorrow. Interval history: No headache, or leg pain. No scotomata. She states she feels good. She states headache stopped soon after delivery, her blood pressures were good after delivery. OB - PN: Obj Data Labs 09/16/24 23:43 09/16/24 09:24 OB - PN A/P Time Spent With Patient Time: Total time spent is greater than 50% in coordination of care (as documented) at patient's floor/unit and/or counseling patient:
--- NOTE | 2024-09-18 10:35 | PM.OBDSVD ---
DS: Admitting Diagnosis Discharge Date 09/18/2024 Admitting Diagnosis OB - DS: Summary Hospital Course Hospital Course: She was admitted for gestational hypertension and recommended for delivery. She was scheduled previously for repeat for Mon. She did have severe headache. Blood pressures were labile, not severe range. She had an uncomplicated repeat section. She states headache completely resolved after delivery, her immediate post delivery blood pressures 120/70s, so Magnesium was not started. Blood pressures continued to be in normal range. She did well . On day 1 she was ambulating well, tolerating regular diet, no leg pain, no PIH symptoms. Blood pressures normal. She had adequate pain control. She was continued on Tamiflu which was started this week for pos flu. OB Procedures : None OB Procedures Intrapartum: OB Procedures: : None Peripartum Data Procedures: Procedures Operation Date: 09/16/24 13:00 Actual Procedure Side Surgeon p Section Bilateral Jaydon Powell MD Time Spent with Patient Time attestation: Total time spent providing and/or coordinating discharge services: Discharge Plan Discharge Attending physician on discharge: Jaydon Powell Consulting providers: Dashawn Jolley Discharging Clinician: Bryant Layton Patient Disposition: Home, Self-Care Activity: may shower, no straining and may drive after 2 weeks Diet: regular Wound Care Instructions: incision open to air Discharge Instructions: Return in one week to office for removal of dressing. Patient Instructions: Antibiotic Form Patient Language: Bangladeshi Stand Alone Forms: General Discharge Information Follow-up/Referrals: Jaydon Powell MD [Physician] - 1 Week (Call for appointment) Discharge Medications: New hydrocodone-acetaminophen 5-325 mg Tablet 1 tablet PO Q3H PRN (Reason: Breakthrough Pain Rated 4-6) Qty: 20 0RF ibuprofen 600 mg Tablet 600 mg PO Q6H Qty: 20 0RF Continued oseltamivir [Tamiflu] 75 mg capsule 75 mg PO Q12H Date of admission: 09/16/24 11:45 Primary Care Provider: UNKNOWN,DOCTOR Admitting Provider: Jaydon Powell Attending physician on admission: Jaydon Powell Condition: Stable
[2024-09-18] MEDS: HYDROcodone/acetaminophen (*CRX) 10-325 MG TABLET 1 TAB PO ×2 (12:57→17:50)
--- NOTE | 2024-09-18 13:00 | PC.NURSE ---
Met with patient to address any feeding questions or concerns. Mom is very concerned about her milk production. We reviewed normal expectations in the early period. She states that at this time with her other child she was already pumping several milliliters at every pumping session. Encouraged her that the pump provides the stimulation her body needs even if she doesn't see results yet. Patient states that it is her goal to feed directly at breast. Patient advised that she should attempt at breast every feeding even if she doesn't feel that baby is getting anything. She complains that her pump flange is causing pain so she was provided with the 27mm flanges and instructed to adjust the suction to the highest comfortable setting. Mom seems to feel there are a lot of barriers to direct so anticipatory guidance and encouragement were provided. Patient is advised to call for assistance at the next feeding time. RN updated.
[2024-09-18 21:00] VITALS: BP 150/92; PULSE 93; RESP 20; TEMP 36.3; O2SAT 99
[2024-09-18] MEDS: FLUTICASONE PROPIONATE 0.05% NA SPR 16 GM BTL (*BKC) 1 SPRAY NASAL (21:18)
[2024-09-18 22:20] VITALS: BP 130/83
[2024-09-18] MEDS: LIDOCAINE 5% PATCH 1 PATCH TRANSDERM (22:46)
[2024-09-18 23:30] VITALS: BP 117/81
--- NOTE | 2024-09-18 23:30 | PC.NURSE ---
2114 patient complained of increased pain levels, mostly focused on a sinus headache and pain in her lower abdomen closely located around her incisional area. Head to toe assessment revealed an elevated blood pressure but all other systems were within normal limits. This RN gave patient her scheduled pain medications and reassessed patient VS 60 minutes later to find that the blood pressures had decreased to a normal level. At this time the patient was more comfortable but was still complaining that her head and abdomen hurt. This RN gave the patient requested pain medication and a lidocaine patch was applied to her abdomen just above her incision as well as ice for her abdomen and head. Patient asked if her blood pressure could be assessed again in 30 more minutes and they were also found to be normal and patients complaint of pain had decreased.
[2024-09-19] MEDS: IBUPROFEN 600 MG TABLET PO ×2 (03:20→10:07)
[2024-09-19] MEDS: ACETAMINOPHEN 325 MG TABLET 650 MG PO ×2 (03:20→10:06)
[2024-09-19] MEDS: HYDROcodone/acetaminophen (*CRX) 10-325 MG TABLET 1 TAB PO (03:20)
[2024-09-19 08:00] VITALS: BP 138/76; PULSE 93; RESP 16; TEMP 36.8; O2SAT 97
[2024-09-19] MEDS: FLUTICASONE PROPIONATE 0.05% NA SPR 16 GM BTL (*BKC) 1 SPRAY NASAL (09:00)
[2024-09-19] MEDS: POLYSACCHARIDE IRON COMPLEX 150 MG CAPSULE PO (10:05)
[2024-09-19] MEDS: DOCUSATE SODIUM 100 MG CAPSULE PO (10:05)
[2024-09-19] MEDS: SIMETHICONE 80 MG TAB.CHEW PO (10:06)
[2024-09-19] MEDS: HYDROcodone/acetaminophen (*CRX) 5-325 MG TABLET 1 TAB PO (10:06)
[2024-09-19] MEDS: MULTIVIT/MIN/PREN/FOL AC/IRON TABLET 1 TAB PO (10:06)
[2024-09-20 11:19] VITALS: BP 140/88; PULSE 84; RESP 18; TEMP 36.7; O2SAT 100
== END 2024-09-19 13:21 | disposition home or self-care (01) | DRG 540 ==
LOC: ANHOBOP 11:56 → ANHLDR 11:58 → ANHOB2 09-17 11:57 → ANHLDR 09-21 09:05
PROVIDERS: Admitting Provider Obstetrics & Gynecology; Visit Provider Obstetrics & Gynecology
PROC: (CPT 59514; principal; 2024-09-16 13:00)
DX: O13.4 Gestational [pregnancy-induced] hypertension without significant proteinuria, complicating childbirth (principal); Z37.0 Single live birth; Z3A.39 39 weeks gestation of pregnancy; O34.211 Maternal care for low transverse scar from previous cesarean delivery; O77.0 Labor and delivery complicated by meconium in amniotic fluid
CPT/HCPCS: 36415; 59025; 76815; 80053; 81003; 82570; 84156; 84550; 85025; 86593; 86703; 86850; 86900; 86901; A9270; G0432; J0690; J1200; J1885; J2274; J2405; J2590; J3480; J7120

== ENCOUNTER 2024-09-21 00:15 | Observation (INO) | payer OTHER, SELFPAY ==
[2024-09-21] VITALS (242 sets, daily range): BP systolic 93–157; BP diastolic 50–97; PULSE 80–117; RESP 14–19; TEMP 36.1–37.2; O2SAT 83–100; BMI 46.0
--- NOTE | 2024-09-21 | ECHO_ITS ---
Patient Info Name: Bel Lee Age: 34 years : 1990 Gender: Female Ht: 63 in Wt: 260 lbs BSA: 2.36 m2 HR: 94 bpm BP: 106 / 62 mmHg Heart Rhythm: Sinus Rhythm Technical Quality: Good Exam Date: 09/21/2024 2:50 PM Exam Location: Echo Lab Patient Status: Outpatient Admit Date: 09/21/2024 Staff Ordering Physician: Jorge Herrera MD ([email or web address]/kal) Hotel Service Manager: Sonia Westfall RDCS Attending Provider: Jane Roe MD Referring Physician: Javier MURILLO; Exam Type: CA echo doppler color flow Study Info Indications R07.9 - Chest pain, unspecified Complete two-dimensional, color flow and Doppler transthoracic echocardiogram is performed. Summary 1. Complete two-dimensional, color flow and Doppler transthoracic echocardiogram is performed. 2. Left ventricular chamber dimension is normal. 3. Left ventricular systolic function is normal, estimated at 60-65%. 4. There is mildly increased left ventricular wall thickness. 5. The left ventricular diastolic function is normal. 6. There is mild mitral valve regurgitation. 7. There is mild tricuspid valve regurgitation. Left Ventricle Left ventricular chamber dimension is normal. Left ventricular systolic function is normal, estimated at 60-65%. There is mildly increased left ventricular wall thickness. The left ventricular diastolic function is normal. Right Ventricle Right ventricular chamber dimension is normal. Right ventricular systolic function is normal. Left Atria Left atrial chamber dimension is normal. Right Atria Right atrial chamber dimension is normal. Atrial Septum Intact interatrial septum visualized by color flow imaging. Aortic Valve The aortic valve is probable trileaflet. There is no aortic valve stenosis. There is trace aortic valve regurgitation. Pulmonic Valve The pulmonic valve is normal. There is no pulmonic valve stenosis. There is trace pulmonic regurgitation. Mitral Valve The mitral valve has normal leaflets. There is no mitral valve stenosis. There is mild mitral valve regurgitation. Tricuspid Valve The tricuspid valve leaflets are normal. There is no significant tricuspid valve stenosis. There is mild tricuspid valve regurgitation. No pulmonary hypertension, estimated pulmonary arterial systolic pressure is 32 mmHg. Pericardium/Pleural The pericardium appears normal. There is no pericardial effusion. Inferior Vena Cava Normal inferior vena cava with >50% collapse upon inspiration consistent with normal right atrial pressure, 10 mmHg. Aorta The aortic root size at the sinus of Valsalva is normal. The prox ascending aorta size is normal. Left Ventricular Outflow Tract Name Value Normal LVOT 2D LVOT Diameter 2.0 cm LVOT Doppler LVOT Peak Gradient 6 mmHg LVOT Mean Gradient 3 mmHg LVOT VTI 20 cm LVOT VTI/AV VTI Ratio 0.8 LVOT Stroke Volume 67 ml LVOT CO 6.8 l/min LVOT CI 2.9 l/min/m2 Pulmonic Valve Name Value Normal RVOT Doppler RVOT Peak Gradient 3 mmHg PV Doppler PV Peak Gradient 6 mmHg Mitral Valve Name Value Normal MV Doppler MV Decel [place] 414 cm/s2 MV PHT 71 ms MV Area (PHT) 3.1 cm2 4.0-5.0 MV Diastolic Function MV E Peak Velocity 102 cm/s MV A Peak Velocity 42 cm/s MV E/A 2.4 MV Decel Time 246 ms Tricuspid Valve Name Value Normal TV Regurgitation Doppler TR Peak Velocity 235 cm/s TR Peak Gradient 17 mmHg Estimated PAP/RSVP RA Pressure 10 mmHg <=5 PA Systolic Pressure 32 mmHg <36 RV Systolic Pressure 32 mmHg <36 Aorta Name Value Normal Ascending Aorta Ao Root Diameter (MM) 2.9 cm Ao Root Diam Index (MM) 1.2 cm/m2 Aortic Valve Name Value Normal AV Doppler AV Peak Velocity 155 cm/s AV Peak Gradient 10 mmHg AV Mean Gradient 5 mmHg AV VTI 26 cm AV Area (Cont Eq VTI) 2.6 cm2 >=3.0 AV Area (Cont Eq Wilbert) 2.5 cm2 AV Regurgitation 2D LVOT Area 3.3 cm2 Ventricles Name Value Normal LV Dimensions 2D/MM IVS Diastolic Thickness (2D) 1.3 cm 0.6-1.0 LVID Diastole (2D) 5.1 cm 3.8-5.2 LVIW Diastolic Thickness (2D) 1.1 cm 0.6-0.9 LVID Systole (2D) 3.5 cm 2.2-3.5 LVOT Diameter 2.0 cm LV Mass (2D Cubed) 235.03 g 67.00-162.00 LV Mass Index (2D Cubed) 100 g/m2 43-95 Relative Wall Thickness (2D) 0.43 LV Fractional Shortening/Ejection Fraction 2D/MM LV Fractional Shortening (2D) 31 % 27-45 LV EF (2D Teicholz) 58 % 54-74 LV Diastolic Volume (4C MOD) 94 ml LV EF (4C MOD) 58 % LV Diastolic Volume (2C MOD) 54 ml LV EF (2C MOD) 58 % LV Diastolic Volume (BP MOD) 73 ml 46-106 LV Diastolic Volume Index (BP MOD) 31 ml/m2 29-61 LV Systolic Volume (BP MOD) 31 ml 14-42 LV Systolic Volume Index (BP MOD) 13 ml/m2 8-24 LV EF (BP MOD) 58 % 54-74 LV Diastolic Length (4C) 7.4 cm LV Systolic Length (4C) 5.8 cm LV Stroke Volume (4C MOD) 54 ml Atria Name Value Normal LA Dimensions LA Dimension (MM) 4.0 cm 2.7-3.8 LA Volume (4C A-L) 44 ml LA Volume (BP A-L) 49 ml RA Dimensions RA Area (4C) 10.7 cm2 <=18.0 Report Signatures
--- NOTE | ~2024-09-21 | XR_ITS ---
Clinical Indication: Chest pain PA and lateral views of the chest: Comparison: None Findings: The lungs are clear, without evidence of focal consolidation or pleural effusion. Cardiome diastinal silhouette is within normal limits. Bones and soft tissues are unremarkable. Impression: Normal chest. Reviewed, dictated and finalized at location . Impression: Normal chest.
--- OUTSIDE RECORDS SUMMARY | 2024-09-21 00:18 | XMS_ITS | Encounter Summary ---
Author Organization [employer] Address [address] [place] [address] Care Team Providers Care Laboratory Scientist Name Role Phone Soren Mart MD Primary Care Provider [phone] Encounter Details Date Type Department Care Team (Latest Contact Info) Description 06/05/2006 Outpatient Historical [facility] David Guillermo MD NO ADDRESS ON FILE Chronic Tonsillitis (Primary Dx) Social History Tobacco Use Types Packs/Day Years Used Date Smoking Tobacco: Never Assessed Comments Unknown Sex and Gender Information Value Date Recorded Sex Assigned at Not on file Legal Sex Female 3:43 AM SLOOP CAPTAIN Gender Identity Not on file Sexual Orientation Not on file documented as of this encounter Plan of Treatment Not on file documented as of this encounter Procedures Procedure Name Priority Date/Time Associated Diagnosis Comments POC , URINE Routine 06/05/2006 9:20 AM SLOOP CAPTAIN HEMOGLOBIN AND HEMATOCRIT Routine 06/05/2006 9:11 AM SLOOP CAPTAIN documented in this encounter Results * POC , URINE (06/05/2006 9:20 AM SLOOP CAPTAIN) , URINE POC Negative Negative INTERFACE SYSTEM 06/05/2006 9:20 AM SLOOP CAPTAIN us David Guillermo MD POINT OF CARE TESTING Final Result INTERFACE SYSTEM Refer to clinic/hospital department * HEMOGLOBIN AND HEMATOCRIT (06/05/2006 9:11 AM SLOOP CAPTAIN) HEMOGLOBIN 13.3 11.8 - 14.8 g/dL INTERFACE SYSTEM HEMATOCRIT 39.0 35.5 - 44.0 % INTERFACE SYSTEM 06/05/2006 9:11 AM SLOOP CAPTAIN us David Guillermo MD HEMATOLOGY ORDERABLES Final Result INTERFACE SYSTEM Refer to clinic/hospital department documented in this encounter Visit Diagnoses Diagnosis Chronic tonsillitis- Primary documented in this encounter Care Teams Laboratory Scientist Relationship Specialty Start Date End Date Soren Mart MD PCP - General 02/10/09 documented as of this encounter
--- OUTSIDE RECORDS SUMMARY | 2024-09-21 00:18 | XMS_ITS | Continuity of Care Document ---
Author Organization [facility] Address [address] [place] [address] Phone Care Team Providers Care Teller Coordinator Name Role Phone Maia Horner Unavailable Unavailable Advance Directives Directive Yes / No Effective Date File Name No Information Encounters Encounter Description Practice Location Reason(s) For Visit Diagnoses Date Provider Providers Copied on Encounter [facility], [address] [place] [address] [address], [place], [place], [id number], [place] tel:[phone] [facility] [place] No Information May-0 9-200 0 Siri Carvalho. [address] [facility] , [address], [place], [address], [place]. tel:[phone] Family History Family Member Type Diagnosis Age At Onset No Information Payers Payer name Insurance type Covered democrat ID Authoriza tion(s) No Information Social History [...]
--- OUTSIDE RECORDS SUMMARY | 2024-09-21 00:18 | XMS_ITS | Encounter Summary ---
Author Organization [facility] Address [address] [place] [address] Care Team Providers Care Tube Mounter Name Role Phone Soren Mart MD Primary Care Provider [phone] Encounter Details Date Type Department Care Team (Late st Contact Info) Description 01/16/2007 Orders Only [facility] Internal Medicine [address] [address] [place] [address] [address] Social History Tobacco Use Types Packs/Day Years Used Date Smoking Tobacco: Never Assessed Comments Unknown Sex and Gender Information Value Date Recorded Sex Assigned at Not on file Legal Sex Female 3:43 AM DOCUMENTUM CONSULTANT Gender Identity Not on file Sexual Orientation Not on file documented as of this encounter Progress Notes * Denny Mccormick MD - 11/03/2007 10:59 AM CDT TIME:04:12 pm PATIENT`S HOME PHONE: PATIENT`S WORK PHONE: PATIENT`S INSURANCE: [employer] WHO TOOK THE CALL: Amelia Lee R GENERAL INFORMATION WHO CALLED: Patient`s mother called. CURRENT ALLERGY LIST: NO KNOWN DRUG ALLERGY PROBLEMS: all x 2 weeks CONGESTION: Patient complains of sinus congestion, complains of head congestion, complains of chestcongestion, complains of nasal congestion. COUGH:Patient complains of cough. symptoms had improved some, but now rigo in head worse. SECTION 1: REQUESTED ACTION [facility] 01/16/07 at 04:13 pm: MEDICATION REQUEST: Patient wants medications and can not come in. DOCTOR`S RESPONSE: [facility] 01/16/07 at 04:[address] Mccormick MEDICATIONS: Call in to Pharmacy DIFLUCAN ORAL TABLET 150 MG, 1 Every Day, 1 Dispensed, status: NEW PRESCRIPTION, 01/16/2007. MEDROL (SANDRA) ORAL TABLET 4 MG, 1 PACKET ORAL DIRECTED, 1 Dispensed, status: NEW PRESCRIPTION, 01/16/2007. ZITHROMAX Z-SANDRA ORAL TABLET 250 MG, TAKE DIRECTED, 1 Dispensed, status: CONTINUED, 01/16/2007. also steam inhalations FINAL ACTION: [facility] 01/16/07 at 04:15 pm Spoke with patient 01/16/07 at 04:15 pm. mom printed script Electronically Signed by: Maribeth Sanchez on Friday, April 06, 2007 documented in this encounter Plan of Treatment Not on file documented as of this encounter Visit Diagnoses Not on filedocumented in this encounter Care Teams Tube Mounter Relationship Specialty Start Date End Date Soren Mart MD PCP - General 02/10/09 documented as of this encounter
--- OUTSIDE RECORDS SUMMARY | 2024-09-21 00:18 | XMS_ITS | Encounter Summary ---
Author Organization [facility] Address 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 CURRENT ALLERGY LIST: NO KNOWN DRUG ALLERGY PHARMACY NUMBER: [phone] PROBLEMS: EARACHE: Patient complains of earache. The [...] on filedocumented in this encounter Care Teams Installer Molding And Trim Relationship Specialty Start Date End Date Soren Mart MD PCP - General 02/10/09 documented as of this encounter
--- OUTSIDE RECORDS SUMMARY | 2024-09-21 00:18 | XMS_ITS | Clinical Summary ---
Author Organization [facility] Address [address] [place] [address] Care Team Providers Care Horticultural Agent Name Role Phone Soren Mart MD Primary Care Provider [phone] Allergies No known active allergies Medications ondansetron (ZOFRAN ODT) 4 mg Tablet, Rapid DissolveIndication s:Nausea Place 1 tab on top of tongue and let dissolve every 8 hours prn nausea.. 32 Tablet 3 7 Active mometasone-formote rol (DULERA) 100-5 mcg/actuation inhaler LOT:[id number] EX:11/2017 QTY:1 BOX. 1 Gram 7 Active [...] STL ABSTRACTION Provider, Abstract 08/05/2024 9:07 AM FLOTATION TENDER HELPER - 08/05/2024 11:59 PM FLOTATION TENDER HELPER Hospital Encounter [facility] [address] [place] [address] Jaydon Chase MD Discharge Disposition: [...] on file Legal Sex Female 3:43 AM FLOTATION TENDER HELPER Gender Identity Not on file Sexual [...] 113.4 kg (250 lb) 07/12/2020 4:03 PM FLOTATION TENDER HELPER Height 162.6 cm (5' 4 ) 07/12/2020 4:03 PM FLOTATION TENDER HELPER Body Mass Index 42.91 07/12/2020 4:03 PM FLOTATION TENDER HELPER Plan of Treatment Health Maintenance Due Date [...] UP PER FETUS Routine 08/05/2024 9:53 AM FLOTATION TENDER HELPER Encounter for ultrasound to assess growth Obesity during , antepartum CERV/VAG CYTO SCREEN PAP RLFX HPV Routine 11/02/2015 12:00 AM CDT from Last 3 Months or Most Recently Relevant to Health Maintenance Results * US OB FOLLOW UP PER FETUS (08/05/2024 9:53 AM FLOTATION TENDER HELPER) Anatomical Region Laterality Modality Pelvis Ultrasound 08/05/2024 9:32 AM FLOTATION TENDER HELPER Narrative 08/05/2024 9:57 AM FLOTATION TENDER HELPER STL FOLLOW UP ----- Pat. Name: ANNI BRYANT Study Date: 08/05/2024 9:32am Pat. NO: [id number] Referring MD: JAYDON CHASE MD Site: [facility] Captain: Bri Toledo RDMS : 1990 Age: 34 [...] Weeks of gestation O99.213: Obesity complicating Procedures 19829: Ultrasound, uterus, real time with image documentation, [...] 5 lb 8 oz EFW by Hadlock ([id number]) Head / Face / Neck Biometry: Soil Chemist 5.3 mm Extremities / Bony Struc Biometry: [...] and date of were verified by the dictaphone operator prior to the exam IMPRESSION ----- 1. [...] Pat. Name:Eladia BRYANT Date:08/05/2024 9:32am Pat. NO: [id number] MD:JAYDON CHASE [facility]Bri Toledo RDMS :1990Age:34 ----- INDICATION ----- Maternal Care for Low Transverse Scar from Previous Delivery (Previous ) Maternal Obesity (BMI<40) Complicating Screening, Other Specified CODING ----- Diagnoses Z3A.33: Weeks of gestation Z36.89: Encounter to establish gestational ageusing ultrasound O99.213: Obesity complicating O34.211: Maternal care for low transverse scarfrom previous delivery Z36.3: Encounter for screening formalformations Z3A.33: Weeks of gestation O99.213: Obesity complicating Procedures 62119: Ultrasound, uterus, real time withimage documentation, follow up, transabdominal approach per fetus HISTORY ----- OB History 2. Para 1 T1L1 MATERNAL ASSESSMENT ----- Physical Exam Initial weight 95 kg, 210 lb. Initial BMI 37.20kg/m METHOD ----- Transabdominal ultrasound examination ----- Holt . Number of fetuses: 1 DATING ----- GA by prior [id number] w + 3 d ANA by prior [...] 5 lb 8 oz EFW by Hadlock ([id number]) Head / Face / Neck Biometry: Soil Chemist 5.3mm Extremities / Bony Struc Biometry: FL [...] and date of were verified by the dictaphone operator prior tothe exam IMPRESSION ----- 1. Single [...] (CP) (11/02/2015 12:00 AM CDT) CLINICAL INFORMATION [facility] Comment: Routine exam WELL WOMAN EXAM LAST MENSTRUAL PERIOD [facility] Comment:10/05/15 PREV PAP: [facility] Comment:Information not prov ided PREV BX: [facility] Comment:Information not prov ided SOURCE [facility] Comment:Endocervix ADEQUACY: [facility] Comment: Satisfactory for evaluation. Endocervical/transformation zone component present. INTERPRETATION [facility] Comment:Negative for intraep ithelial lesion or malignancy. CYTOLOGY INFECTION Q [facility] Comment: Shift in vaginal maureen suggestive of bacterial vaginosis. COMMENT [facility] DIAGNOSTICS [facility] Comment: This Pap test has been evaluated with computer assisted technology. ESTIMATING MANAGER: QU [employer] [facility] Comment: MLO, CT(ASCP) CT screening location: [place] [address] [place] [address] Test Performed at: [place] [address] [place] [address] DEBBIE CHOPRA MD 11/02/2015 us Delphine Lua ECONOMICS FACULTY MEMBER PATHOLOGY/CYTOLOGY ORDERABLES F inal Result [facility] [address] [place] [address] from Last 3 Months or Most Recently Relevant to Health Maintenance Insurance Advance Directives For more information, please contact: [phone] * Full Code (Latest Code Status on File) Date Activated Date Inactivated Comments 12/21/2013 9:08 PM 12/22/2013 6:32 PM Care Teams Horticultural Agent Relationship Specialty Start Date End Date Soren Mart MD PCP - General 02/10/09
--- OUTSIDE RECORDS SUMMARY | 2024-09-21 00:18 | XMS_ITS | Encounter Summary ---
Author Organization [facility] Address [address] [place] [address] Care Team Providers Care Evp Strategy Name Role Phone Soren Mart MD Primary Care Provider [phone] Encounter Details Date Type Department Care Team (Late st Contact Info) Description 06/24/2006 Orders Only [facility] Internal Medicine [address] [address] Igne Hutson MD NO ADDRESS ON FILE Social History Tobacco Use Types Packs/Day Years Used Date Smoking Tobacco: Never Assessed Comments Unknown Sex and Gender Information Value Date Recorded Sex Assigned at Not on file Legal Sex Female 3:[address]OR Gender Identity Not on file Sexual Orientation Not on file documented as of this encounter Progress Notes * Inge Hutson MD - 11/10/2007 10:59 AM CDT TIME:04:58 pm PATIENT`S HOME PHONE: PATIENT`S WORK PHONE: PATIENT`S INSURANCE: [facility] [employer] [facility] WHO TOOK THE CALL: Amelia Lee R GENERAL INFORMATION ALTERNATIVE PHONE NUMBER: [phone] or work WHO CALLED: Patient`s mother called. CURRENT ALLERGY LIST: NO KNOWN DRUG ALLERGY PHARMACY NUMBER: [phone] PROBLEMS: feeling terrible, chest tight-wheezing sound, did [...] on filedocumented in this encounter Care Teams Evp Strategy Relationship Specialty Start Date End Date Soren Mart MD PCP - General 02/10/09 documented as of this encounter
--- OUTSIDE RECORDS SUMMARY | 2024-09-21 00:18 | XMS_ITS | Encounter Summary ---
Author Organization [employer] Address [address] [place] [address] Care Team Providers Care Edger Machine Helper Name Role Phone Soren Mart MD Primary Care Provider [phone] Encounter Details Date Type Department Care Team (Late st Contact Info) Description 12/27/2006 Outpatient Historical [facility] Inge Hutson MD NO ADDRESS ON FILE Disturbance of Skin Sensation (Primary Dx) Social History Tobacco Use Types Packs/Day Years Used Date Smoking Tobacco: Never Assessed Comments Unknown Sex and Gender Information Value Date Recorded Sex Assigned at Not on file Legal Sex Female 3:43 AM SALES SUPPORT ASSOCIATE Gender Identity Not on file Sexual [...] HEMATOLOGY ORDERABLES Ed ited Performing Organization Address City/State/[facility] Co de Phone Number [...] HEMATOLOGY ORDERABLES Ed ited Performing Organization Address [facility] Phone Number INTERFACE SYSTEM Refer to clinic/hospital department * HEMOGLOBIN A1C (12/27/2006 12:31 PM CDT) HEMOGLOBIN A1C 5.4 4.1 - 6.1 % of Hgb INTERFACE SYSTEM GLUCOSE, MEAN BLOOD 115 mg/dL INTERFACE SYSTEM 12/27/2006 12:3 1 PM CDT us Inge Hutson MD CHEMISTRY ORDERABLES Darrel juan Performing Organization Address [facility] Phone Number INTERFACE SYSTEM Refer to clinic/hospital department * TSH (12/27/2006 12:31 PM CDT) TSH 1.50 0.27 - 4.20 uU/mL INTERFACE SYSTEM 12/27/2006 12:3 1 PM CDT us Inge Hutson MD CHEMISTRY ORDERABLES Darrel juan Performing Organization Address [facility] Phone Number INTERFACE SYSTEM Refer to [...] CHEMISTRY ORDERABLES Darrel juan Performing Organization Address [facility] Phone Number INTERFACE SYSTEM Refer to clinic/hospital department * FERRITIN (12/27/2006 12:31 PM CDT) FERRITIN 39 13 - 150 ng/mL INTERFACE SYSTEM 12/27/2006 12:3 1 PM CDT us Inge Hutson MD CHEMISTRY ORDERABLES Darrel juan Performing Organization Address City/[facility] Co de Phone Number [...] non- Americans is available on the [facility] Intranet at: [email or web address] Select: Lab Policies and Procedures Select: Reference Ranges - GFR 12/27/2006 12:3 1 PM CDT Inge Hutson MD CHEMISTRY ORDERABLES Darrel juan Performing Organization Address City/[facility] Co de Phone Number INTERFACE SYSTEM Refer to clinic/hospital department documented in this encounter Visit Diagnoses Diagnosis Disturbance of skin sensation- Primary documented in this encounter Care Teams Edger Machine Helper Relationship Specialty Start Date End Date Soren Mart MD PCP - General 02/10/09 documented as of this encounter
--- OUTSIDE RECORDS SUMMARY | 2024-09-21 00:18 | XMS_ITS | Encounter Summary ---
Author Organization [facility] Address 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 CURRENT ALLERGY LIST: NO KNOWN DRUG ALLERGY PHARMACY NUMBER: [phone] PROBLEMS: feeling bad , achy FEVER: Patient [...] on filedocumented in this encounter Care Teams Cafeteria Counter Attendant Relationship Specialty Start Date End Date Soren Mart MD PCP - General 02/10/09 documented as of this encounter
--- OUTSIDE RECORDS SUMMARY | 2024-09-21 00:18 | XMS_ITS | Clinical Summary ---
Author Organization [facility] Address [address] [place] [address] Care Team Providers Care Claim Representative Name Role Phone Joy Gardner GWEN-DEPUTY OF COUNTER INTELLIGENCE Primary Care Provider + Source Comments [facility],non-owned Affiliates and Associated Physician Practices is amultiple site organization consisting of ambulatory clinics and hospital sitesin [place], [place]. This disclosure is being madepursuant to the Care Everywhere program and may not contain all information available regarding this patient. Last updated 18.[facility] [employer] Allergies No known active allergies Medications * [...] LURIA, FLUZONE TRIVALENT; 6MO+) (IIV3) 04/13/2016,04/14/2014,05/21/2010 Covid EvolveMol primary monoval ent 12+ yr 0.3mL Purple [...] to complete this topic Care Teams Claim Representative Relationship Specialty Start Date End Date Joy Gardner APRN-CNP [address] [id number] PCP - General 02/13/21
--- OUTSIDE RECORDS SUMMARY | 2024-09-21 00:18 | XMS_ITS | Encounter Summary ---
Author Organization [facility] Address 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 LAB ORDERS: Order number: [id number] Test Ordered: HEMOCCULT SINGLE [id number] + PATIENT EDUCATION: Questions were allowed to stated satisfaction. PREVENTIVE COUNSELING The patient was counseled regarding diet. RETURN VISIT : please waive todays co-pay Electronically Signed by: Inge Hutson MD on Wednesday, June 07, 2006 documented in this encounter Plan of Treatment Not on file documented as of this encounter Visit Diagnoses Not on filedocumented in this encounter Care Teams Crm Business Analyst Relationship Specialty Start Date End Date Soren Mart MD PCP - General 02/10/09 documented as of this encounter
--- OUTSIDE RECORDS SUMMARY | 2024-09-21 00:18 | XMS_ITS | Encounter Summary ---
Author Organization [facility] Address [address] [place] [address] Care Team Providers Care Straightener And Aligner Name Role Phone Soren Mart MD Primary Care Provider Encounter Details Date Type Department Care Team (Late st Contact Info) Description 01/15/2006 Outpatient Historical [facility] Internal Medicine [address] [address] Inge Hutson MD NO ADDRESS ON FILE Social History Tobacco Use Types Packs/Day Years Used Date Smoking Tobacco: Never Assessed Comments Unknown Sex and Gender Information Value Date Recorded Sex Assigned at Not on file Legal Sex Female 3:43 AM HUMANITIES COORDINATOR Gender Identity Not on file Sexual Orientation Not on file documented as of this encounter Plan of Treatment Not on file documented as of this encounter Visit Diagnoses Not on filedocumented in this encounter Care Teams Straightener And Aligner Relationship Specialty Start Date End Date Soren Mart MD PCP - General 02/10/09 documented as of this encounter
--- OUTSIDE RECORDS SUMMARY | 2024-09-21 00:18 | XMS_ITS | Encounter Summary ---
Author Organization [facility] Address [address] [place] [address] Care Team Providers Care Car Greaser Name Role Phone Soren Mart MD Primary Care Provider [phone] Encounter Details Date Type Department Care Team (Late st Contact Info) Description 06/04/2006 Outpatient Historical [facility] Internal Medicine [address] [address] Inge Hutson MD NO ADDRESS ON FILE Social History Tobacco Use Types Packs/Day Years Used Date Smoking Tobacco: Never Assessed Comments Unknown Sex and Gender Information Value Date Recorded Sex Assigned at Not on file Legal Sex Female 3:43 AM SERVICES COORDINATOR Gender Identity Not on file Sexual Orientation Not on file documented as of this encounter Plan of Treatment Not on file documented as of this encounter Visit Diagnoses Not on filedocumented in this encounter Care Teams Car Greaser Relationship Specialty Start Date End Date Soren Mart MD PCP - General 02/10/09 documented as of this encounter
--- OUTSIDE RECORDS SUMMARY | 2024-09-21 00:18 | XMS_ITS | Encounter Summary ---
Author Organization [facility] Address [address] [facility] [place] [address] Phone Care Team Providers Care Credit Verifier Name Role Phone Denny Norman MD Primary Care Provider [phone] Encounter Details Date Type Department Care Team (Late st Contact Info) Description 01/02/2023 Telephone [facility] [address] [place] [address] Provider, None [place] Social History Tobacco Use Types Packs/Day Years Used Date Smoking Tobacco: Never Assessed Comments Unknown Sex and Gender Information Value Date Recorded Sex Assigned at Female 07/09/2023 12:53 PM PRODUCTION RECOVERY OPERATOR Legal Sex Female 1:59 PM CDT Gender Identity Female 07/09/2023 12:53 PM PRODUCTION RECOVERY OPERATOR Sexual Orientation Straight 07/09/2023 12 :53 PM PRODUCTION RECOVERY OPERATOR documented as of this encounter Miscellaneous [...] see someone other than physician, such as AFTER SCHOOL PROGRAM DIRECTOR, PA, resident? yes Patient reason for appointment/any current symptoms: establish care med refills Other information (including need for seedling puller): no documented in this encounter Plan of Treatment Not on file documented as of this encounter Visit Diagnoses Not on filedocumented in this encounter Care Teams Credit Verifier Relationship Specialty Start Date End Date Denny Norman MD [address] [address] PCP - General Family Medicine 01/08/23 documented as of this encounter
--- OUTSIDE RECORDS SUMMARY | 2024-09-21 00:18 | XMS_ITS | Encounter Summary ---
Author Organization [facility] Address 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
--- OUTSIDE RECORDS SUMMARY | 2024-09-21 00:18 | XMS_ITS | Encounter Summary ---
Author Organization [employer] [facility] Address [address] [place] [address] Care Team Providers Care Product Steward Name Role Phone Soren Mart MD Primary Care Provider Encounter Details Date Type Department Care Team (Late st Contact Info) Description 02/27/2012 Chart Note [facility] [place] [address] [facility] [address] [place] [address] Radha Mcallister, Physical Therapist Social History Tobacco Use Types Packs/Day Years Used Date Smoking Tobacco: Never Smokeless Tobacco: Never Alcohol Use Standard Drinks/Week Comments No 0 (1 standard drink = 0.6 oz pur e alcohol) Comments No Sex and Gender Information Value Date Recorded Sex Assigned at Not on file Legal Sex Female 3:43 AM AGRICULTURE WORKER Gender Identity Not on file Sexual [...] you for this referral. Radha Mcallister [facility] [address] [place] [address]. [address] [place] [address] documented in this encounter Plan of Treatment Not on file documented as of this encounter Visit Diagnoses Not on filedocumented in this encounter Care Teams Product Steward Relationship Specialty Start Date End Date Soren Mart MD PCP - General 02/10/09 documented as of this encounter
--- OUTSIDE RECORDS SUMMARY | 2024-09-21 00:18 | XMS_ITS | Encounter Summary ---
Author Organization [facility] Address [address] [place] [address] Care Team Providers Care Bass String Winder Name Role Phone Soren Mart MD Primary Care Provider Encounter Details Date Type Department Care Team (Late st Contact Info) Description 06/04/2006 Outpatient Historical [facility] Internal Medicine [address] [address] Inge Hutson MD NO ADDRESS ON FILE Social History Tobacco Use Types Packs/Day Years Used Date Smoking Tobacco: Never Assessed Comments Unknown Sex and Gender Information Value Date Recorded Sex Assigned at Not on file Legal Sex Female 3:43 AM PLAYGROUND ATTENDANT Gender Identity Not on file Sexual Orientation Not on file documented as of this encounter Plan of Treatment Not on file documented as of this encounter Visit Diagnoses Not on filedocumented in this encounter Care Teams Bass String Winder Relationship Specialty Start Date End Date Soren Mart MD PCP - General 02/10/09 documented as of this encounter
--- OUTSIDE RECORDS SUMMARY | 2024-09-21 00:18 | XMS_ITS | Encounter Summary ---
Author Organization [facility] Address [address] [place] [address] Care Team Providers Care Tier Lift Operator Name Role Phone Soren Mart MD Primary Care Provider [phone] Encounter Details Date Type Department Care Team (Late st Contact Info) Description 04/30/2006 Orders Only [facility] Internal Medicine [address] [address] Inge Hutson MD NO ADDRESS ON FILE Social History Tobacco Use Types Packs/Day Years Used Date Smoking Tobacco: Never Assessed Comments Unknown Sex and Gender Information Value Date Recorded Sex Assigned at Not on file Legal Sex Female 3:43 AM NIGHT TIME NANNY Gender Identity Not on file Sexual [...] was cleaned by lighting with a cigarette shift leader, this ring was also used beforehand by [...] as to visualizeTM. LAB ORDERS: Order number: [id number] Test Ordered: REMOVE CERUMEN IMPACT 59929 682.0-OTHER CELLULITIS AND ABSCESS ASSESSMENT: advised warm [...] on filedocumented in this encounter Care Teams Tier Lift Operator Relationship Specialty Start Date End Date Soren Mart MD PCP - General 02/10/09 documented as of this encounter
--- OUTSIDE RECORDS SUMMARY | 2024-09-21 00:19 | XMS_ITS | Encounter Summary ---
Author Organization [employer] Address [address] [place] [address] Care Team Providers Care Cryptographic Vulnerability Analyst Name Role Phone Soren Mart MD Primary Care Provider [phone] Encounter Details Date Type Department Care Team (Late st Contact Info) Description 09/22/2008 Outpatient Historical [facility] Elmo Reich MD [address] [facility] [address] [place] [address] Social History Tobacco Use Types Packs/Day Years Used Date Smoking Tobacco: Never Assessed Comments Unknown Sex and Gender Information Value Date Recorded Sex Assigned at Not on file Legal Sex Female 3:43 AM SENIOR ATTORNEY Gender Identity Not on file Sexual [...] AM CDT Narrative 10/01/2008 11:40 AM CDT [place] [place] [place] [address] Admit Date: 09/23/2008 ANNI BRYANT Sex: F Admit Prov: ELMO REICH Date: 1990 Primary Care Prov: CMRN: [id number] Room: SURG-A N: [id number] IMAGING SERVICES Ordering Prov: ELMO REICH Accession Number: [id number] Interpretation Fluoroscopic guidance was used by the surgeon to assist with performance of this intra-operative procedure. Please refer to surgeon s operative report for specific details. Dictated by: RADIOLOGY, DEPARTMENT O Electronically signed by: RADIOLOGY, DEPARTMENT 10/01/2008 11:39 Transcribed: 10/01/2008 07:42 AMK Procedure Note Radiology, Radiologist - 10/01/2008 [address] [place] [address] Admit Date: 09/23/2008 ANNI BRYANT Sex: F Admit Prov: ELMO REICH Date: 1990 Primary Care Prov: CMRN: [id number] [id number] IM[facility]ING SERVICES Ordering Prov: ELMO REICH Interpretation [...] TESTING Final Re sult Performing Organization Address City/[facility] de Phone Number INTERFACE SYSTEM Refer to clinic/hospital department [facility] CLIA# [id number] [address] [place] [address] * HEMOGLOBIN AND HEMATOCRIT (09/23/2008 9:50 AM CDT) HEMOGLOBIN 12.3 11.8 - 14.8 g/dL [facility] HEMATOCRIT 37.5 35.5 - 44.0 % [facility] Blood specimen (specimen) 09/23/2008 9:50 AM CDT 09/23/2008 10:05 AM CDT Narrative INTERFACE SYSTEM - 09/23/2008 10:15 AM CDT room 6 Elmo Reich MD HEMATOLOGY ORDERABLES Final Re sult Performing Organization Address [facility] Phone Number INTERFACE SYSTEM Refer to clinic/hospital department [facility] CLIA# [id number] [address] [place] [address] documented in this encounter Visit Diagnoses Not on filedocumented in this encounter Care Teams Cryptographic Vulnerability Analyst Relationship Specialty Start Date End Date Soren Mart MD PCP - General 02/10/09 documented as of this encounter
--- OUTSIDE RECORDS SUMMARY | 2024-09-21 00:19 | XMS_ITS | Encounter Summary ---
Author Organization [facility] Address [address] [place] [address] Care Team Providers Care Sausage Smoker Name Role Phone Soren Mart MD Primary Care Provider [phone] Encounter Details Date Type Department Care Team (Late st Contact Info) Description 10/30/2005 Outpatient Historical [facility] Internal Medicine [address] [address] Inge Hutson MD NO ADDRESS ON FILE Social History Tobacco Use Types Packs/Day Years Used Date Smoking Tobacco: Never Assessed Comments Unknown Sex and Gender Information Value Date Recorded Sex Assigned at Not on file Legal Sex Female 3:43 AM ADVICE NURSE Gender Identity Not on file Sexual [...] 10/30/2005 3:0 0 PM CDT Growth Chart: [facility][NOTE 3] (Girls, 2- 20 Years) documented in this encounter Plan of Treatment Not on file documented as of this encounter Visit Diagnoses Not on filedocumented in this encounter Care Teams Sausage Smoker Relationship Specialty Start Date End Date Soren Mart MD PCP - General 02/10/09 documented as of this encounter
--- OUTSIDE RECORDS SUMMARY | 2024-09-21 00:19 | XMS_ITS | Encounter Summary ---
Author Organization [employer] Address [address] [place] [address] Care Team Providers Care Tangled Yarn Worker Name Role Phone Porter Christianson MD Primary Care Provider [phone] Encounter Details Date Type Department Care Team (Latest Contact Info) Description 08/24/2007 Outpatient Historical [facility] Porter Christianson MD [address] [place] [address] Brain Injury NEC (CMS/HCC) Social History Tobacco Use Types Packs/Day Years Used Date Smoking Tobacco: Never Assessed Comments Unknown Sex and Gender Information Value Date Recorded Sex Assigned at Not on file 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 Sex Female 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 Gender Identity Not on file Sexual [...] AM CDT Narrative 08/24/2007 1:35 PM CDT [facility] [address] [place], [place] [address] Admit Date: 08/24/2007 ANNI BRYANT Sex: F Admit Prov: PORTER CHRISTIANSON Date: 1990 Primary Care Prov: ALYX REGAN CMRN: [id number] [facility] [id number] IM[facility]ING SERVICES Ordering Prov: N/A Accession Number: [id number] Interpretation CT HEAD WITHOUT CONTRAST, 08/23/2005 History: [...] CUONG SHAFFER 08/24/2007 13:35 Transcribed: 08/24/2007 13:11 [facility] Procedure Note Provider, Historical - 08/24/2007 [id number] [place], [place] [address] Admit Date: 08/24/2007 ANNI BRYANT Sex: F Admit Prov: PORTER CHRISTIANSON Date: 1990 Primary Care Prov: ALYX REGAN CMRN: [id number] [facility] [id number] IMAGING SERVICES Ordering Prov: N/A Interpretation CT [...] consciousness documented in this encounter Care Teams Tangled Yarn Worker Relationship Specialty Start Date End Date Porter Christianson MD PCP - General 02/10/09 documented as of this encounter
--- OUTSIDE RECORDS SUMMARY | 2024-09-21 00:19 | XMS_ITS | Encounter Summary ---
Author Organization [employer] Address [address] [place] [address] Care Team Providers Care Science Specialist Name Role Phone Soren Mart MD Primary Care Provider [phone] Encounter Details Date Type Department Care Team (Late st Contact Info) Description 05/21/2008 Outpatient Historical [facility] Dario Coronel MD [address] [place] [address] Social History Tobacco Use Types Packs/Day Years Used Date Smoking Tobacco: Never Assessed Comments Unknown Sex and Gender Information Value Date Recorded Sex Assigned at Not on file Legal Sex Female 3:43 AM FLIGHT SIMULATOR TEACHER Gender Identity Not on file Sexual Orientation Not on file documented as of this encounter Plan of Treatment Not on file documented as of this encounter Procedures Procedure Name Priority Date/Time Associated Diagnosis Comments URINE CULTURE Routine 05/21/2008 11:47 AM FLIGHT SIMULATOR TEACHER documented in this encounter Results * URINE CULTURE (05/21/2008 11:47 AM FLIGHT SIMULATOR TEACHER) PRELIMINARY REPORT Pending [facility] FINAL REPORT No growth 24 hours [facility] 05/21/2008 11:4 7 AM FLIGHT SIMULATOR TEACHER 05/21/2008 6:10 PM FLIGHT SIMULATOR TEACHER us Dario Coronel MD MICROBIOLOGY - GENERAL ORDER ADAM Final Result INTERFACE SYSTEM Refer to clinic/hospital department [facility] CLIA# [id number] [address] [place] [address] documented in this encounter Visit Diagnoses Not on filedocumented in this encounter Care Teams Science Specialist Relationship Specialty Start Date End Date Soren Mart MD PCP - General 02/10/09 documented as of this encounter
--- OUTSIDE RECORDS SUMMARY | 2024-09-21 00:19 | XMS_ITS | Encounter Summary ---
Author Organization [facility] Address [address] [place] [address] Care Team Providers Care Customer Technical Services Manager Name Role Phone Soren Mart MD Primary Care Provider [phone] Encounter Details Date Type Department Care Team (Late st Contact Info) Description 04/24/2007 Orders Only [facility] Internal Medicine [address] [address] Inge Hutson MD NO ADDRESS ON FILE Social History Tobacco Use Types Packs/Day Years Used Date Smoking Tobacco: Never Assessed Comments Unknown Sex and Gender Information Value Date Recorded Sex Assigned at Not on file Legal Sex Female 3:43 AM EVENT SALES MANAGER Gender Identity Not on file Sexual Orientation Not on file documented as of this encounter Progress Notes * Inge Hutson MD - 10/29/2007 5:13 PM CDT TIME:02:07 pm PATIENT`S HOME PHONE: PATIENT`S WORK PHONE: PATIENT`S INSURANCE: [facility] WHO TOOK THE CALL: Amelia Lee R GENERAL INFORMATION ALTERNATIVE PHONE NUMBER: [phone] WHO CALLED: Patient`s mother called.Carly Cisneros CURRENT [...] filedocumented in this encounter Care Teams Customer Technical Services Manager Relationship Specialty Start Date End Date Soren Mart MD PCP - General 02/10/09 documented as of this encounter
--- OUTSIDE RECORDS SUMMARY | 2024-09-21 00:19 | XMS_ITS | Encounter Summary ---
Author Organization [employer] Address [address] [place] [address] Care Team Providers Care Special Education Preschool Teacher Name Role Phone Soren Mart MD Primary Care Provider [phone] Encounter Details Date Type Department Care Team (Latest Contact Info) Description 04/27/2008 Outpatient Historical [facility] Conversion, History Urinary Tract Infection, Site not Specified Social History Tobacco Use Types Packs/Day Years Used Date Smoking Tobacco: Never Assessed Comments Unknown Sex and Gender Information Value Date Recorded Sex Assigned at Not on file Legal Sex Female 3:43 AM LIFE SKILLS COORDINATOR Gender Identity Not on file Sexual Orientation Not on file documented as of this encounter Plan of Treatment Not on file documented as of this encounter Procedures Procedure Name Priority Date/Time Associated Diagnosis Comments CHLAMYDIA/N. GONORRHOEAE, DNA Routine 04/27/2008 7:34 PM LIFE SKILLS COORDINATOR URINE CULTURE Routine 04/27/2008 7:34 PM LIFE SKILLS COORDINATOR documented in this encounter Results * URINE CULTURE (04/27/2008 7:34 PM LIFE SKILLS COORDINATOR) FINAL REPORT 50-100,000 colonies/mL Escherichia coli <10,000 colonies/mL Streptococcus Group B -NOTE: In women, recovery of Group B Streptococcus may be significant. However, in non- women, recovery in small quantities suggests contamination with blue urethral maureen. Normal urethral maureen also present. - Phoned report (with read back verified) to [facility] () 04/29/08 10:43:23 -- Faxed report(s): [phone] [facility] SUSCEPTIBILITY PERFORMED ON ESCHERICHIA COLI [facility] 04/27/2008 7:34 PM LIFE SKILLS COORDINATOR 04/27/2008 8:27 PM LIFE SKILLS COORDINATOR Narrative Organism Antibiotic Method Susceptibility Escherichia coli [...] ORDERA BLES Final Result Performing Organization Address City/[facility]/ZIP Co de Phone Number INTERFACE SYSTEM Refer to clinic/hospital department [facility] CLIA# [id number] [address] [place] [address] * CHLAMYDIA/N. GONORRHOEAE, DNA (04/27/2008 7:34 PM LIFE SKILLS COORDINATOR) CHLAMYDIA TRACHOMATIS DNA NOT DETECTED NOT DETECTED [facility] NEISSERIA GONORRHOEAE DNA NOT DETECTED NOT DETECTED [facility] Comment: Lab test performed by: [employer] [address] [address] ZURDO FIGUEROA MD Specimen of unknown material (specimen) URINE SPECIMEN / Unknown 04/27/2008 7:34 PM LIFE SKILLS COORDINATOR 04/27/2008 8:08 PM LIFE SKILLS COORDINATOR us History Conversion BODY FLUIDS AND STOOLS Final Result Performing Organization Address City/[facility]/ZIP Co de Phone Number INTERFACE SYSTEM Refer to clinic/hospital department [facility] CLIA# [id number] [address] [place] [address] documented in this encounter Visit Diagnoses Diagnosis Urinary tract infection, site not specified documented in this encounter Care Teams Special Education Preschool Teacher Relationship Specialty Start Date End Date Soren Mart MD PCP - General 02/10/09 documented as of this encounter
--- OUTSIDE RECORDS SUMMARY | 2024-09-21 00:19 | XMS_ITS | Encounter Summary ---
Author Organization [employer] Address [address] [place] [address] Care Team Providers Care Child Caregiver Private Home Name Role Phone Soren Mart MD Primary Care Provider [phone] Encounter Details Date Type Department Care Team (Latest Contact Info) Description 07/06/2005 [facility] Con[facility], History FX MID/PRX PHAL, HAND-CLOSE (Primary Dx) Social History Tobacco Use Types Packs/Day Years Used Date Smoking Tobacco: Never Assessed Comments Unknown Sex and Gender Information Value Date Recorded Sex Assigned at Not on file Legal Sex Female 3:43 AM BUYING AGENT Gender Identity Not on file Sexual Orientation Not on file documented as of this encounter Plan of Treatment Not on file documented as of this encounter Visit Diagnoses Diagnosis Closed fracture of middle or proximal phalanx or phalanges of hand- Primary documented in this encounter Care Teams Child Caregiver Private Home Relationship Specialty Start Date End Date Soren Mart MD PCP - General 02/10/09 documented as of this encounter
--- OUTSIDE RECORDS SUMMARY | 2024-09-21 00:19 | XMS_ITS | Encounter Summary ---
Author Organization [facility] Address [address] [place] [address] Care Team Providers Care Eyeglass Lens Grinder Name Role Phone Soren Mart MD Primary Care Provider Encounter Details Date Type Department Care Team (Late st Contact Info) Description 08/24/2007 Outpatient Historical [facility] Internal Medicine [address] [address] Soren Mart MD [address] [place] [address] Social History Tobacco Use Types Packs/Day Years Used Date Smoking Tobacco: Never Assessed Comments Unknown Sex and Gender Information Value Date Recorded Sex Assigned at Not on file Legal Sex Female 3:43 AM SURFACE BOSS Gender Identity Not on file Sexual Orientation Not on file documented as of this encounter Plan of Treatment Not on file documented as of this encounter Visit Diagnoses Not on filedocumented in this encounter Care Teams Eyeglass Lens Grinder Relationship Specialty Start Date End Date Soren Mart MD PCP - General 02/10/09 documented as of this encounter
--- OUTSIDE RECORDS SUMMARY | 2024-09-21 00:19 | XMS_ITS | Clinical Summary ---
Author Organization [facility] Address [address] [place] [address] Phone Care Team Providers Care Network Communications Engineer Name Role Phone Denny Norman MD Primary Care Provider [phone] Allergies No known active allergies Medications prazosin [...] drink = 0.6 oz pur e alcohol) [employer] Answer Date Recorded In the past 12 months has [employer], [employer], oil, or water [employer] threatened to shut off services in your [...] week 11/20/2023 How often do you attend caro center or baptism services? Patient declined 11/20/2023 Do you belong to any clubs o r organizations such as druze groups, unions, fraternal or athletic groups, or [...] medical care, and heating? Patient declined 11/20/2023 [facility] - Occupational Stress Questionnaire Answer Date [...] place to sleep or slept in a retirement (including now)? No 11/20/2023 Education Answer Date Recorded What is the highest level of school you have completed or the highest degree you have received? Associate degree: academic program 01/08/2023 Sexually Active Control Partners Comments Yes None Male Comments No Sex and Gender Information Value Date Recorded Sex Assigned at Female 07/09/2023 12:53 PM PATIENT EXPERIENCE COORDINATOR Legal Sex Female 1:59 PM CDT Gender Identity Female 07/09/2023 12:53 PM PATIENT EXPERIENCE COORDINATOR Sexual Orientation Straight 07/09/2023 12 :53 PM PATIENT EXPERIENCE COORDINATOR Last Filed Vital Signs Vital Sign Reading [...] 09/25/2023 09/24/2013, 01/08/2010, 01/15/2006, Additional history exists SARS-COV-2 Immunization ( season) 2024 10/12/2020, 09/14/2020 Influenza Immunization (Season Ended) 2025 04/13/2019, 04/13/2016, 04/12/2016, Additional history exists Pap Smear 02/21/2026 02/21/2023 Cervical Cancer Screening [...] exam with routine gynecological exam PATHOLOGY CYTOLOGY TRANSIT WORKER Routine 02/21/2023 2:35 PM CDT Well woman exam with routine gynecological exam from Last 3 Months or Most Recently Relevant to Health Maintenance Results * HEPATITIS C ANTIBODY (02/24/2024 12:00 AM CDT) 02/24/2024 us Provider Scan CHEMISTRY ORDERABLES Final Resul t SCAN * PATHOLOGY CYTOLOGY TRANSIT WORKER (02/21/2023 2:35 PM CDT) SPECIMEN ADEQUACY Satisfactory for evaluation. Endocervical/transf ormation zone component is present. 03/11/2023 3:22 PM CDT [facility] GENERAL CATEGORY EPITHELIAL CELL ABNORMALITY. 03/11/2023 3:22 PM CDT [facility] DESCRIPTIVE DIAGNOSIS ASCUS: Atypical squamous cells of undetermined significance. 03/11/2023 3:22 PM CDT [facility] at 1522 CDT OTHER FINDINGS Fungal organisms present, morphologically consistent with Ricarda species. 03/11/2023 3:22 PM CDT [facility] Automated Examination Analysis of this sample has been assisted by an automated imaging and review system ([employer] Imaging System, [employer], [place], [place]). This case is further evaluated and finalized by a rubber goods cutter finisher and/or pathologist. 03/11/2023 3:22 PM CDT [facility] Disclaimer The PAP smear is a [...] unless clinically indicated. 03/11/2023 3:22 PM CDT [facility] Other CERVIX UTERI STRUCTURE / Unknown Non-Phlebotomy Collection / Unknown 02/21/2023 2:35 PM CDT 02/21/2023 2:35 PM CDT us Amelia Beard APRN, ADVERTISING OPERATIONS COORDINATOR PATHOLOGY/CYTOLOGY ORDER ADAM Final Result Performing Organization Address City/State/[facility] Co de Phone Number [facility] [address] [place] [address], * (ABNORMAL) HUMAN PAPILLOMA VIRUS (HPV) (02/21/2023 2:35 PM CDT) HPV OTHER HIGH RISK TYPES, PCR POSITIVE(A) NEGATIVE 02/25/2023 7:37 AM CDT [facility] Comment: Positive for one or more of the following Other High HPV types: 31, 33, 35, 39, 45, 51, 52, 56, 58, 59, 66, and 68. False-positive results have been reported with molecular assays. If these positive results are discordant with clinical/cytohistologic findings, repeat testing may be considered after an appropriate interval. HPV TYPE 16 NEGATIVE NEGATIVE 02/25/2023 7:37 AM CDT [facility] Comment: A negative high-risk HPV result [...] 18 NEGATIVE NEGATIVE 02/25/2023 7:37 AM CDT [facility] Comment: A negative high-risk HPV result [...] OR DIAGNOSTIC SCREENING 02/25/2023 7:37 AM CDT [facility] Other Non-Phlebotomy Collection / Unknown 02/21/2023 2:35 PM CDT 02/21/2023 2:35 PM CDT Narrative [facility] - 02/25/2023 7:37 AM CDT Performed by Real-Time Polymerase Chain Reaction (PCR) on the Caryl Marcellus 4800. This assay has been validated for use with post-aliquot samples from the [employer] T5000 processor. us Amelia Beard APRN, ADVERTISING OPERATIONS COORDINATOR LAB SEND OUTS Final Re sult [facility] [address] [place] [address], [place] from Last 3 Months or Most Recently Relevant to Health Maintenance Insurance MEDICAID [employer] Care Teams Network Communications Engineer Relationship Specialty Start Date End Date Denny Norman MD #[address] [address] PCP - General Family Medicine 01/08/23
--- OUTSIDE RECORDS SUMMARY | 2024-09-21 00:19 | XMS_ITS | Encounter Summary ---
Author Organization [facility] Address 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 [email or web address] [facility] WHO TOOK THE CALL: Thuan Cohen N Julia GENERAL INFORMATION ALTERNATIVE PHONE NUMBER: [phone] WHO CALLED: Patient`s mother called. CURRENT ALLERGY LIST: NO KNOWN DRUG ALLERGY PHARMACY NUMBER: [phone] [employer] PROBLEMS: VAGINAL DISCHARGE: [...] some metrogel but would have her see obstetrician/gynecologist if her sx persist. MEDICATIONS: Call in [...] filedocumented in this encounter Care Teams Lumber Driver Relationship Specialty Start Date End Date Soren Mart MD PCP - General 02/10/09 documented as of this encounter
--- OUTSIDE RECORDS SUMMARY | 2024-09-21 00:19 | XMS_ITS | Encounter Summary ---
Author Organization [employer] Address [address] [place] [address] Care Team Providers Care Inside Sales Advisor Name Role Phone Soren Mart MD Primary Care Provider [phone] Encounter Details Date Type Department Care Team (Late st Contact Info) Description 03/14/2005 Outpatient Historical [facility] Support Serv. (Peds Cardiology-[place]) 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
--- OUTSIDE RECORDS SUMMARY | 2024-09-21 00:19 | XMS_ITS | Encounter Summary ---
Author Organization [facility] Address 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
--- OUTSIDE RECORDS SUMMARY | 2024-09-21 00:19 | XMS_ITS | Encounter Summary ---
Author Organization [employer] Address [address] [place] [address] Care Team Providers Care Process Specialist Name Role Phone Soren Mart MD Primary Care Provider [phone] Encounter Details Date Type Department Care Team (Late st Contact Info) Description 02/04/2008 Outpatient Historical [facility] EM[facility]GENCY [facility] Er, Authorized P NO ADDRESS ON FILE Ingrid Giang NP [address] [place] [address] Social History Tobacco Use Types Packs/Day Years Used Date Smoking Tobacco: Never Assessed Comments Unknown Sex and Gender Information Value Date Recorded Sex Assigned at Not on file Legal Sex Female 3:43 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 Findings: The paranasal sinuses are clear. The orbits are intact. The soft tissues are unremarkable. Impression: Unremarkable study. . Dictated by: VANDANA MCCRARY 02/04/2008 13:43 Electronically signed by: VANDANA MCCRARY 02/04/2008 13:44 Procedure Note Vandana Mccrary - 02/04/2008 [facility] [address] [place], [place] [address] Admit Date: 02/04/2008 ANNI BRYANT Sex: F Admit Prov: ER, AUTHORIZED P Date: 1990 Primary Care Prov: CMRN: [id number] [facility]: [id number] IMAGING SERVICES Ordering Prov: N/A Interpretation Sinuses [...] - [facility] BILIRUBIN UA Negative Negative [facility] PROTEIN UA Negative Negative [facility] LEUKOCYTE ESTERASE UA Negative Negative [facility] SPECIFIC GRAVITY UA 1.005 1.001 - 1.035 [facility] GLUCOSE UA Negative Negative [facility] BLOOD UA Negative Negative [facility] COLOR UA Pale Yellow [facility] NITRITE UA Negative Negative [facility] UROBILINOGEN UA <1 <=1 mg/dL [facility] PH UA 7.0 5.0 - 8.0 [facility] 02/04/2008 1:15 PM CDT 02/04/2008 1:17 PM CDT Ingrid Giang NP URINE ORDERABLES Final Result INTERFACE SYSTEM Refer to clinic/hospital department [facility] CLIA# [id number] [address] [place] [address] * URINALYSIS WITH REFLEX CULTURE (02/04/2008 1:15 PM CDT) [facility] URINE CULTURE ORDER Not indicated [facility] Comment: Criteria for a reflex culture include one or more of the following: Abnormal nitrite, leukocyte esterase, WBCs or RBCs. Lack of qualifying criteria does not exclude the possiblity of a urinary tract infection. Dilute urine, drug interference, etc. may decrease the sensitivity of the criteria analytes. Urine specimen (specimen) 02/04/2008 1:15 PM CDT 02/04/2008 1:17 PM CDT Ingrid Giang AMMONIA BOX OPERATOR URINE ORDERABLES Final Result Performing Organization Address [facility] de Phone Number INTERFACE SYSTEM Refer to clinic/hospital department [facility] CLIA# [id number] [address] [place] [address] * POC , URINE (02/04/2008 1:11 PM CDT) [facility] , URINE POC Negative Negative [facility] SPECIFIC GRAVITY UA 1.010 1.001 - 1.035 [facility] Urine specimen (specimen) 02/04/2008 1:11 PM CDT 02/04/2008 1:11 PM CDT us Authorized P Er POINT OF CARE TESTING Final Resu lt Performing Organization Address [facility] de Phone Number INTERFACE SYSTEM Refer to clinic/hospital department [facility] CLIA# [id number] [address] [place] [address] * POC URINALYSIS DIPSTICK (02/04/2008 1:09 PM CDT) [facility] CLARITY UA Clear [facility] PROTEIN UA Negative Negative [facility] BLOOD UA Negative Negative [facility] LEUKOCYTE ESTERASE UA Negative Negative [facility] UROBILINOGEN UA Normal <=1 mg/dL [facility] SPECIFIC GRAVITY UA 1.010 1.001 - 1.030 [facility] GLUCOSE UA Negative Negative [facility] COLOR UA Pale [facility] BILIRUBIN UA Negative Negative [facility] NITRITE UA Negative Negative [facility] PH UA 7.0 5.0 - 8.0 [facility] KETONES UA Negative Negative [facility] COMMENT, URINE Test not chrgd/to repeat [facility] Urine specimen (specimen) 02/04/2008 1:09 PM CDT 02/04/2008 1:09 PM CDT us Authorized P Er POINT OF CARE TESTING Edited INTERFACE SYSTEM Refer to clinic/hospital department [facility] CLIA# [id number] [address] [place] [address] * (ABNORMAL) CBC WITH DIFFERENTIAL (02/04/2008 11:50 AM CDT) WBC 10.4(H) 4.0 - 9.8 K/uL [facility] MCH 30.4 27.2 - 32.6 pg [facility] MPV 10.3 9.3 - 12.4 fL [facility] HEMATOCRIT 37.5 35.5 - 44.0 % [facility] RDW-STDEV 42.9 37.1 - 48.7 fL [facility] RBC 4.08 3.90 - 4.90 M/uL [facility] MCHC 33.1 31.5 - 35.5 % [facility] MCV 91.9 82.0 - 99.0 fL [facility] PLATELETS 224 140 - 350 K/uL [facility] HEMOGLOBIN 12.4 11.8 - 14.8 g/dL [facility] RDW 12.7 11.5 - 14.5 % [facility] PLATELET EST. Consistent w/ count Normal [facility] LYMPHOCYTES 11(L) 16 - 45 % [facility] BASOPHILS ABSOLUTE 0.00 0.00 - 0.20 K/uL [facility] BASOPHILS 0 0 - 2 % [facility] MONOCYTE ABSOLUTE 0.31 0.10 - 1.30 K/uL [facility] MONOCYTES 3 3 - 13 % [facility] RBC MORPHOLOGY Normal Normal [facility] NEUTROPHIL ABSOLUTE 8.84(H) 1.90 - 7.00 K/uL [facility] NEUTROPHILS, SEG 85(H) 45 - 70 % [facility] ATYPICAL LYMPHOCYTE 1 0 - 5 % [facility] EOSINOPHIL ABSOLUTE 0.00 0.00 - 0.70 K/uL [facility] REVIEWED ON SMEAR Plt OK by Smear Rev. [facility] EOSINOPHILS 0 0 - 7 % [facility] LYMPHOCYTE ABSOLUTE 1.25 0.70 - 4.50 K/uL [facility] Blood specimen (specimen) 02/04/2008 11:50 AM CDT 02/04/2008 11:55 AM CDT us Ingrid Giang NP HEMATOLOGY ORDERABLES Edited INTERFACE SYSTEM Refer to clinic/hospital department [facility] CLIA# [id number] [address] [facility] [address] [place] [address] * MONONUCLEOSIS SCREEN (02/04/2008 11:50 AM CDT) MONONUCLEOSIS SCREEN Negative Negative [facility] Blood specimen (specimen) 02/04/2008 11:50 AM CDT 02/04/2008 11:55 AM CDT Ingrid Giang NP HEMATOLOGY ORDERABLES Final R esult Performing Organization Address [facility] de Phone Number INTERFACE SYSTEM Refer to clinic/hospital department [facility] CLIA# [id number] [address] [place] [place] [address] * C-REACTIVE PROTEIN (02/04/2008 11:50 AM CDT) Pathologist [facility] CRP 0.2 0.0 - 0.8 mg/dL [facility] Blood specimen (specimen) 02/04/2008 11:50 AM CDT 02/04/2008 11:55 AM CDT Ingrid Giang NP CHEMISTRY ORDERABLES Final Re sult Performing Organization Address [facility] de Phone Number INTERFACE SYSTEM Refer to clinic/hospital department [facility] CLIA# [id number] [address] [place] [address] * COMPREHENSIVE METABOLIC PANEL (02/04/2008 11:50 AM CDT) ALKALINE PHOSPHATASE 65 35 - 187 U/L [facility] BILIRUBIN TOTAL 0.4 0.2 - 1.0 mg/dL [facility] CO2 23 22 - 30 mmol/L [facility] TOTAL PROTEIN 7.1 6.3 - 8.6 g/dL [facility] POTASSIUM 3.9 3.5 - 4.9 mmol/L [facility] GLUCOSE 101 60 - 110 mg/dL [facility] AST 16 12 - 32 U/L [facility] BUN 10 6 - 20 mg/dL [facility] CALCIUM 9.0 8.4 - 10.2 mg/dL [facility] Comment:Note new reference r percy effective 01/14/08 CHLORIDE 103 96 - 108 mmol/L [facility] ALBUMIN 4.4 3.2 - 4.5 g/dL [facility] CREATININE 0.64 0.51 - 0.95 mg/dL [facility] SODIUM 135 135 - 145 mmol/L [facility] ALT 14 0 - 31 U/L [facility] GFR, N/A:MDRD equation validated for pts. >18 yrs. >=60 mL/min/1 .7 sq meter [facility] GFR N/A:MDRD equation validated for pts. >18 yrs. >=60 mL/min/1 .7 sq meter [facility] Comment: Modification of Diet in Renal Disease (MDRD) study formula. Estimated GFR rate interpretative information for both Americans and non- Americans is available on the [facility] Intranet at: [email or web address] Select: Lab Policies and Procedures Select: Reference Ranges - GFR Blood specimen (specimen) 02/04/2008 11:50 AM CDT 02/04/2008 11:55 AM CDT Ingrid Giang AMMONIA BOX OPERATOR CHEMISTRY ORDERABLES Edited INTERFACE SYSTEM Refer to clinic/hospital department [facility] CLIA# [id number] [address] [place] [address] documented in this encounter Visit Diagnoses Not on filedocumented in this encounter Care Teams Process Specialist Relationship Specialty Start Date End Date Soren Mart MD PCP - General 02/10/09 documented as of this encounter
--- OUTSIDE RECORDS SUMMARY | 2024-09-21 00:19 | XMS_ITS | Encounter Summary ---
Author Organization [email or web address] Address 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
--- OUTSIDE RECORDS SUMMARY | 2024-09-21 00:19 | XMS_ITS | Encounter Summary ---
Author Organization [employer] Address [address] [place] [address] Care Team Providers Care Interior Horticulturist Name Role Phone Soren Mart MD Primary Care Provider [phone] Encounter Details Date Type Department Care Team (Latest Contact Info) Description 03/14/2005 Outpatient Historical HIS CARDIOPULMONARY Conversion, History CHEST PAIN NEC (Primary Dx) Social History Tobacco Use Types Packs/Day Years Used Date Smoking Tobacco: Never Assessed Comments Unknown Sex and Gender Information Value Date Recorded Sex Assigned at Not on file Legal Sex Female 3:43 AM SHAPER HAND Gender Identity Not on file Sexual Orientation Not on file documented as of this encounter Plan of Treatment Not on file documented as of this encounter Visit Diagnoses Diagnosis Other chest pain- Primary documented in this encounter Care Teams Interior Horticulturist Relationship Specialty Start Date End Date Soren Mart MD PCP - General 02/10/09 documented as of this encounter
--- OUTSIDE RECORDS SUMMARY | 2024-09-21 00:19 | XMS_ITS | Encounter Summary ---
Author Organization [employer] [facility] Address 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
--- OUTSIDE RECORDS SUMMARY | 2024-09-21 00:19 | XMS_ITS | Encounter Summary ---
Author Organization [email or web address] Address [address] [place] [address] Care Team Providers Care Dyer And Washer Name Role Phone Soren Mart MD Primary Care Provider Encounter Details Date Type Department Care Team (Latest Contact Info) Description 02/06/2009 Outpatient Historical [facility] IMG-[facility] Soren Mart MD [address] [place] [address] Head Injury, Unspecified Social History Tobacco Use Types Packs/Day Years Used Date Smoking Tobacco: Never Alcohol Use Standard Drinks/Week Comments Not Asked 0 (1 standard drink = 0.6 oz pur e alcohol) Comments No Sex and Gender Information Value Date Recorded Sex Assigned at Not on file 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
--- OUTSIDE RECORDS SUMMARY | 2024-09-21 00:19 | XMS_ITS | Encounter Summary ---
Author Organization [facility] Address [address] [place] [address] Care Team Providers Care Ordnance Mechanic Name Role Phone Soren Mart MD Primary Care Provider [phone] Encounter Details Date Type Department Care Team (Late st Contact Info) Description 07/06/[address] 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 [...] on filedocumented in this encounter Care Teams Ordnance Mechanic Relationship Specialty Start Date End Date Soren Mart MD PCP - General 02/10/09 documented as of this encounter
--- OUTSIDE RECORDS SUMMARY | 2024-09-21 00:19 | XMS_ITS | Encounter Summary ---
Author Organization [facility] Address 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 Gender Identity Not on file Sexual Orientation Not on file documented as of this encounter Last Filed Vital Signs Vital Sign Reading Time Taken Comments Blood Pressure - - Pulse - - Temperature 37 C (98.6 F) 07/06/2007 11:45 AM BOWLING BALL MOLDER Respiratory Rate - - Oxygen Saturation - - Inhaled Oxygen Concentration - - Weight 68 kg (150 lb) 07/06/2007 11:45 AM BOWLING BALL MOLDER Height - - Body Mass Index - - documented in this encounter Plan of Treatment Not on file documented as of this encounter Visit Diagnoses Not on filedocumented in this encounter Care Teams Computer Art Instructor Relationship Specialty Start Date End Date Soren Mart MD PCP - General 02/10/09 documented as of this encounter
--- OUTSIDE RECORDS SUMMARY | 2024-09-21 00:19 | XMS_ITS | Encounter Summary ---
Author Organization [facility] Address [address] [place] [address] Care Team Providers Care Baker Head Name Role Phone Soren Mart MD Primary Care Provider [phone] Encounter Details Date Type Department Care Team (Late st Contact Info) Description 07/08/2007 Orders Only [facility] Internal Medicine [address] [address] Inge Hutson MD NO ADDRESS ON FILE Social History Tobacco Use Types Packs/Day Years Used Date Smoking Tobacco: Never Assessed Comments Unknown Sex and Gender Information Value Date Recorded Sex Assigned at Not on file Legal Sex Female 3:43 AM SONOGRAPHER Gender Identity Not on file Sexual Orientation Not on file documented as of this encounter Progress Notes * Inge Hutson MD - 10/28/2007 8:18 PM CDT TIME:01:31 pm PATIENT`S HOME PHONE: PATIENT`S WORK PHONE: PATIENT`S INSURANCE: [facility] [employer] [facility] WHO TOOK THE CALL: Amelia Lee R GENERAL INFORMATION WHO CALLED: Patient`s mother called. CURRENT ALLERGY LIST: NO KNOWN DRUG ALLERGY PHARMACY NUMBER: [phone] PROBLEMS: CONGESTION: Patient complains of congestion. COUGH:Patient [...] on filedocumented in this encounter Care Teams Baker Head Relationship Specialty Start Date End Date Soren Mart MD PCP - General 02/10/09 documented as of this encounter
--- OUTSIDE RECORDS SUMMARY | 2024-09-21 00:19 | XMS_ITS | Encounter Summary ---
Author Organization [employer] Address 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
--- OUTSIDE RECORDS SUMMARY | 2024-09-21 00:19 | XMS_ITS | Encounter Summary ---
Author Organization [facility] Address 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 Can you prescribe a few for the stomach cramps. She has to go back to school to be able to be in [employer]'s performance. NAUSEA: Patient complains of nausea. The [...] on filedocumented in this encounter Care Teams Citrus Fruit Colorer Relationship Specialty Start Date End Date Soren Mart MD PCP - General 02/10/09 documented as of this encounter
--- OUTSIDE RECORDS SUMMARY | 2024-09-21 00:19 | XMS_ITS | Encounter Summary ---
Author Organization [facility] Address [address] [place] [address] Care Team Providers Care Strategic Marketing Associate Name Role Phone Soren Mart MD Primary Care Provider [phone] Encounter Details Date Type Department Care Team (Late st Contact Info) Description 04/30/2006 Outpatient Historical [facility] Internal Medicine [address] [address] Inge Hutson MD NO ADDRESS ON FILE Social History Tobacco Use Types Packs/Day Years Used Date Smoking Tobacco: Never Assessed Comments Unknown Sex and Gender Information Value Date Recorded Sex Assigned at Not on file Legal Sex Female 3:43 AM NURSING CONSULTANT Gender Identity Not on file Sexual Orientation Not on file documented as of this encounter Plan of Treatment Not on file documented as of this encounter Visit Diagnoses Not on filedocumented in this encounter Care Teams Strategic Marketing Associate Relationship Specialty Start Date End Date Soren Mart MD PCP - General 02/10/09 documented as of this encounter
--- OUTSIDE RECORDS SUMMARY | 2024-09-21 00:19 | XMS_ITS | Encounter Summary ---
Author Organization [facility] Address [address] [place] [address] Care Team Providers Care Rn Documentation Name Role Phone Soren Mart MD Primary Care Provider Encounter Details Date Type Department Care Team (Late st Contact Info) Description 04/30/2006 Outpatient Historical [facility] Internal Medicine [address] [address] Inge Hutson MD NO ADDRESS ON FILE Social History Tobacco Use Types Packs/Day Years Used Date Smoking Tobacco: Never Assessed Comments Unknown Sex and Gender Information Value Date Recorded Sex Assigned at Not on file Legal Sex Female 3:43 AM RESIDENT CARE ASSOCIATE Gender Identity Not on file Sexual Orientation Not on file documented as of this encounter Plan of Treatment Not on file documented as of this encounter Visit Diagnoses Not on filedocumented in this encounter Care Teams Rn Documentation Relationship Specialty Start Date End Date Soren Mart MD PCP - General 02/10/09 documented as of this encounter
--- OUTSIDE RECORDS SUMMARY | 2024-09-21 00:19 | XMS_ITS | Encounter Summary ---
Author Organization [employer] Address [address] [place] [address] Care Team Providers Care Bus Driver School Name Role Phone Soren Mart MD Primary Care Provider [phone] Encounter Details Date Type Department Care Team [...] on file Legal Sex Female 3:43 AM COMMUNICATION MANAGER Gender Identity Not on file Sexual [...] PM CDT Narrative 08/25/2008 9:51 PM CDT [place] [address] [address] [place], [place] [address] Admit Date: 08/25/2008 ANNI BRYANT Sex: F Admit Prov: ER, AUTHORIZED P Date: 1990 Primary Care Prov: CMRN: [id number] Room: ER-A N: [address] [place] [address] IMAGING SERVICES Ordering Prov: N/A Accession Number: [id number] Interpretation EXAMINATION: LEFT FIFTH FINGER, 3 VIEWS. [...] Procedure Note Denver Panda MD - 08/25/2008 [address] [place], [place] [address] Admit Date: 08/25/2008 ANNI BRYANT Sex: F Admit Prov: ER, AUTHORIZED P Date: 1990 Primary Care Prov: CMRN: [id number] [id number] Ordering Prov: N/A Interpretation EXAMINATION: [...] premises documented in this encounter Care Teams Bus Driver School Relationship Specialty Start Date End Date Soren Mart MD PCP - General 02/10/09 documented as of this encounter
--- NOTE | 2024-09-21 00:23 | ECG_ITS ---
Test Date: 2024-09-21 00:31:00 Measurements Intervals [place] Rate: 100 P: 43 RI: 151 QRS: -13 QRSD: 80 T: 16 QT: 316 QTc: 407 Interpretive Statements SINUS TACHYCARDIA POSSIBLE LEFT ATRIAL ENLARGEMENT DELAYED PRECORDIAL R/S TRANSITION BASELINE ARTIFACT- I, II, III, AVR BORDERLINE ECG No previous ECG available for comparison Electronically Signed On 09-21-2024 06:25:00 CDT by Jc Chopra D.O.
[2024-09-21] MEDS: ASPIRIN 81 MG CHEWABLE TABLET 324 MG PO (00:36)
[2024-09-21 00:47] LABS: Basophils Absolute Auto 0.1 K/mm3 (0.0-0.1); Basophils Percent Auto 0.4 % (0.2-1.2); Eosinophils Absolute Auto 0.4 K/mm3 (0-0.3); Eosinophils Percent Auto 3.2 % (0-4.4); Hematocrit 31.8 % (37.0-47.0); Hemoglobin 9.8 g/dL (12.0-15.0); Immature Granulocyte Absolute 0.12 K/mm3 (0.00-0.031); Immature Granulocyte Percent A 1.1 % (0-0.5); Lymphocytes Absolute Auto 2.75 K/mm3 (0.9-3.2); Lymphocytes Percent Auto 24.7 % (18.3-44.2); Mean Corpuscular HGB Conc 30.8 g/dl (32-36); Mean Corpuscular Hemoglobin 30.2 pg (26-34); Mean Corpuscular Volume 97.8 fl (80-100); Mean Platelet Volume 9.1 fl (7.4-10.4); Monocytes Absolute Auto 0.5 K/mm3 (0.1-0.6); Monocytes Percent Auto 4.8 % (2.6-8.5); Neutrophils Absolute Auto 7.3 K/mm3 (1.3-6.7); Neutrophils Percent Auto 65.8 % (45.5-73.1); Platelet Count Result 328 k/mm3 (150-375); Red Blood Count 3.25 M/mm3 (4.2-5.4); Red Cell Distribution Width 13.9 % (11.5-14.5); White Blood Count 11.1 K/mm3 (4.5-10.0)
[2024-09-21 00:53] LABS: Prothrombin Time 13.2 Seconds (11.1-14.7)
[2024-09-21 00:54] LABS: Partial Thromboplastin Time 30.8 Seconds (22.3-36.8)
[2024-09-21 00:58] LABS: Alanine Aminotransferase 24 U/L (6-35); Albumin Level 3.2 g/dL (3.5-5.1); Alkaline Phosphatase 81 U/L (38-126); Anion Gap 6 mmol/L (4-12); Aspartate Amino Transferase 33 U/L (14-36); Bilirubin,Total 0.2 mg/dL (0.2-1.3); Blood Urea Nitrogen 18 mg/dL (7-17); Calcium 8.9 mg/dL (8.4-10.2); Carbon Dioxide 27 mmol/L (22-30); Chloride 103 mmol/L (98-107); Estimated CRCL calculation 92 ml/min; Estimated Glomerular Filt Rate > 60; Glucose 96 mg/dL (65-110); Lipase 39 U/L (23-300); Potassium 4.2 mmol/L (3.4-5.0); Sodium 136 mmol/L (137-145)
[2024-09-21 01:07] LABS: NT Pro B Type Natriuretic Pept 132 pg/mL (19.9-100)
[2024-09-21 01:10] LABS: Troponin I < 0.012 ng/mL (0.000-0.034)
--- OUTSIDE RECORDS SUMMARY | 2024-09-21 02:00 | XMS_ITS | Encounter Summary ---
Author Organization [facility] Address 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 CURRENT ALLERGY LIST: NO KNOWN DRUG ALLERGY PHARMACY NUMBER: [phone] PROBLEMS: feeling terrible, chest tight-wheezing sound, did [...] on filedocumented in this encounter Care Teams Facilities Technician Relationship Specialty Start Date End Date Soren Mart MD PCP - General 02/10/09 documented as of this encounter
--- OUTSIDE RECORDS SUMMARY | 2024-09-21 02:00 | XMS_ITS | Clinical Summary ---
Author Organization [facility] Address [address] [facility] [place] [address] Care Team Providers Care Consulting Marine Engineer Name Role Phone Joy Gardner GWEN-CONSTRUCTION GRIP Primary Care Provider + Source Comments [facility],non-owned Affiliates and Associated Physician Practices is amultiple site organization consisting of ambulatory clinics and hospital sitesin [place], [place], [place] and [place]. This disclosure is being madepursuant to the Care Everywhere program and may not contain all information available regarding this patient. Last updated 18.[facility] [employer] Allergies No known active allergies Medications * [...] LURIA, FLUZONE TRIVALENT; 6MO+) (IIV3) 04/13/2016,04/14/2014,05/21/2010 Covid [email or web address] primary monoval ent 12+ yr 0.3mL Purple [...] age to complete this topic Care Teams Consulting Marine Engineer Relationship Specialty Start Date End Date Joy Gardner APRN-CNP [address] [phone] PCP - General 02/13/21
--- OUTSIDE RECORDS SUMMARY | 2024-09-21 02:00 | XMS_ITS | Encounter Summary ---
Author Organization [facility] Address [address] [place] [address] Care Team Providers Care Oxyacetylene Burner Name Role Phone Soren Mart MD Primary Care Provider [phone] Encounter Details Date Type Department Care Team (Latest Contact Info) Description 06/05/2006 Outpatient Historical [facility] David Guillermo MD NO ADDRESS ON FILE Chronic Tonsillitis (Primary Dx) Social History Tobacco Use Types Packs/Day Years Used Date Smoking Tobacco: Never Assessed Comments Unknown Sex and Gender Information Value Date Recorded Sex Assigned at Not on file Legal Sex Female 3:43 AM JOURNALISTS AND OTHER WRITERS Gender Identity Not on file Sexual Orientation Not on file documented as of this encounter Plan of Treatment Not on file documented as of this encounter Procedures Procedure Name Priority Date/Time Associated Diagnosis Comments POC , URINE Routine 06/05/2006 9:20 AM JOURNALISTS AND OTHER WRITERS HEMOGLOBIN AND HEMATOCRIT Routine 06/05/2006 9:11 AM JOURNALISTS AND OTHER WRITERS documented in this encounter Results * POC , URINE (06/05/2006 9:20 AM JOURNALISTS AND OTHER WRITERS) , URINE POC Negative Negative INTERFACE SYSTEM 06/05/2006 9:20 AM JOURNALISTS AND OTHER WRITERS us David Guillermo MD POINT OF CARE TESTING Final Result INTERFACE SYSTEM Refer to clinic/hospital department * HEMOGLOBIN AND HEMATOCRIT (06/05/2006 9:11 AM JOURNALISTS AND OTHER WRITERS) HEMOGLOBIN 13.3 11.8 - 14.8 g/dL INTERFACE SYSTEM HEMATOCRIT 39.0 35.5 - 44.0 % INTERFACE SYSTEM 06/05/2006 9:11 AM JOURNALISTS AND OTHER WRITERS us David Guillermo MD HEMATOLOGY ORDERABLES Final Result INTERFACE SYSTEM Refer to clinic/hospital department documented in this encounter Visit Diagnoses Diagnosis Chronic tonsillitis- Primary documented in this encounter Care Teams Oxyacetylene Burner Relationship Specialty Start Date End Date Soren Mart MD PCP - General 02/10/09 documented as of this encounter
--- OUTSIDE RECORDS SUMMARY | 2024-09-21 02:00 | XMS_ITS | Encounter Summary ---
Author Organization [facility] Address [address] [place] [address] Care Team Providers Care Stitching Machine Feeder Or Offbearer Name Role Phone Soren Mart MD Primary Care Provider [phone] Encounter Details Date Type Department Care Team (Late st Contact Info) Description 01/15/2006 Outpatient Historical [facility] Internal Medicine [address] [address] Inge Hutson MD NO ADDRESS ON FILE Social History Tobacco Use Types Packs/Day Years Used Date Smoking Tobacco: Never Assessed Comments Unknown Sex and Gender Information Value Date Recorded Sex Assigned at Not on file Legal Sex Female 3:43 AM 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
--- OUTSIDE RECORDS SUMMARY | 2024-09-21 02:00 | XMS_ITS | Encounter Summary ---
Author Organization [employer] Address [address] [place] [address] Care Team Providers Care Aircraft Armament Mechanic Name Role Phone Soren Mart MD Primary Care Provider [phone] Encounter Details Date Type Department Care Team (Late st Contact Info) Description 12/27/2006 Outpatient Historical [facility] Inge Hutson MD NO ADDRESS ON FILE Disturbance of Skin Sensation (Primary Dx) Social History Tobacco Use Types Packs/Day Years Used Date Smoking Tobacco: Never Assessed Comments Unknown Sex and Gender Information Value Date Recorded Sex Assigned at Not on file Legal Sex Female 3:43 AM ACTUARIAL TRAINEE Gender Identity Not on file Sexual Orientation [...] ORDERABLES Ed ited Performing Organization Address City/State/[facility] Co de Phone Number INTERFACE SYSTEM [...] HEMATOLOGY ORDERABLES Ed ited Performing Organization Address [facility] Phone Number INTERFACE SYSTEM Refer to clinic/hospital department * HEMOGLOBIN A1C (12/27/2006 12:31 PM CDT) HEMOGLOBIN A1C 5.4 4.1 - 6.1 % of Hgb INTERFACE SYSTEM GLUCOSE, MEAN BLOOD 115 mg/dL INTERFACE SYSTEM 12/27/2006 12:3 1 PM CDT us Igne Hutson MD CHEMISTRY ORDERABLES Darrel juan Performing Organization Address [facility] Phone Number INTERFACE SYSTEM Refer to clinic/hospital department * TSH (12/27/2006 12:31 PM CDT) TSH 1.50 0.27 - 4.20 uU/mL INTERFACE SYSTEM 12/27/2006 12:3 1 PM CDT us Inge Hutson MD CHEMISTRY ORDERABLES Darrel juan Performing Organization Address [facility] Phone Number INTERFACE SYSTEM Refer [...] CHEMISTRY ORDERABLES Darrel juan Performing Organization Address [facility] Phone Number INTERFACE SYSTEM Refer to clinic/hospital department * FERRITIN (12/27/2006 12:31 PM CDT) FERRITIN 39 13 - 150 ng/mL INTERFACE SYSTEM 12/27/2006 12:3 1 PM CDT us Inge Hutson MD CHEMISTRY ORDERABLES Darrel juan Performing Organization Address City/[facility] Co de Phone Number INTERFACE SYSTEM [...] and non- Americans is available on the [facility] Intranet at: [email or web address] Select: Lab Policies and Procedures Select: Reference Ranges - GFR 12/27/2006 12:3 1 PM CDT Inge Hutson MD CHEMISTRY ORDERABLES Darrel juan Performing Organization Address City/[facility] Co de Phone Number INTERFACE SYSTEM Refer to clinic/hospital department documented in this encounter Visit Diagnoses Diagnosis Disturbance of skin sensation- Primary documented in this encounter Care Teams Aircraft Armament Mechanic Relationship Specialty Start Date End Date Soren Mart MD PCP - General 02/10/09 documented as of this encounter
--- OUTSIDE RECORDS SUMMARY | 2024-09-21 02:00 | XMS_ITS | Clinical Summary ---
Author Organization [facility] Address [address] [place] [address] Care Team Providers Care Polygraph Examiner Name Role Phone Soren Mart MD Primary Care Provider [phone] Allergies No known active allergies Medications ondansetron (ZOFRAN ODT) 4 mg Tablet, Rapid DissolveIndication s:Nausea Place 1 tab on top of tongue and let dissolve every 8 hours prn nausea.. 32 Tablet 3 7 Active mometasone-formote rol (DULERA) 100-5 mcg/actuation inhaler LOT:[id number] EX:11/2017 QTY:1 BOX. 1 Gram 7 Active [...] STL ABSTRACTION Provider, Abstract 08/05/2024 9:07 AM PERINATAL COORDINATOR - 08/05/2024 11:59 PM PERINATAL COORDINATOR Hospital Encounter [facility] [address] [place] [address] Jaydon Chase MD Discharge Disposition: [...] on file Legal Sex Female 3:43 AM PERINATAL COORDINATOR Gender Identity Not on file Sexual [...] 113.4 kg (250 lb) 07/12/2020 4:03 PM PERINATAL COORDINATOR Height 162.6 cm (5' 4 ) 07/12/2020 4:03 PM PERINATAL COORDINATOR Body Mass Index 42.91 07/12/2020 4:03 PM PERINATAL COORDINATOR Plan of Treatment Health Maintenance Due Date [...] UP PER FETUS Routine 08/05/2024 9:53 AM PERINATAL COORDINATOR Encounter for ultrasound to assess growth Obesity during , antepartum CERV/VAG CYTO SCREEN PAP RLFX HPV Routine 11/02/2015 12:00 AM CDT from Last 3 Months or Most Recently Relevant to Health Maintenance Results * US OB FOLLOW UP PER FETUS (08/05/2024 9:53 AM PERINATAL COORDINATOR) Anatomical Region Laterality Modality Pelvis Ultrasound 08/05/2024 9:32 AM PERINATAL COORDINATOR Narrative 08/05/2024 9:57 AM PERINATAL COORDINATOR STL FOLLOW UP ----- Pat. Name: ANNI BRYANT Study Date: 08/05/2024 9:32am Pat. NO: [id number] Referring MD: JAYDON CHASE MD Site: [place] Mat Puncher: Bri Toledo RDMS : 1990 Age: 34 [...] Weeks of gestation O99.213: Obesity complicating Procedures 06238: Ultrasound, uterus, real time with image documentation, [...] 5 lb 8 oz EFW by Hadlock ([id number]) Head / Face / Neck Biometry: Finish Cleaner 5.3 mm Extremities / Bony Struc Biometry: [...] and date of were verified by the news video editor prior to the exam IMPRESSION ----- 1. [...] - 08/05/2024 STL FOLLOW UP ----- Pat. Name:Elaida BRYANT Date:08/05/2024 9:32am Pat. NO: [id number] MD:JAYDON CHASE [facility] Toledo RDMS :1990Age:34 ----- INDICATION ----- [...] Weeks of gestation O99.213: Obesity complicating Procedures 72304: Ultrasound, uterus, real time withimage documentation, follow up, transabdominal approach per fetus HISTORY ----- OB History 2. Para 1 T1L1 MATERNAL ASSESSMENT ----- Physical Exam Initial weight 95 kg, 210 lb. Initial BMI 37.20kg/m METHOD ----- Transabdominal ultrasound examination ----- Holt . Number of fetuses: 1 DATING ----- GA by prior [id number] w + 3 d ANA by prior [...] 5 lb 8 oz EFW by Hadlock ([id number]-FL) Head / Face / Neck Biometry: Finish Cleaner 5.3mm Extremities / Bony Struc Biometry: FL [...] and date of were verified by the news video editor prior tothe exam IMPRESSION ----- 1. Single [...] (CP) (11/02/2015 12:00 AM CDT) CLINICAL INFORMATION [employer] [facility] Comment: Routine exam WELL WOMAN EXAM LAST MENSTRUAL PERIOD [employer] [facility] Comment:10/05/15 PREV PAP: [employer] [facility] Comment:Information not prov ided PREV BX: [employer] [facility] Comment:Information not prov ided SOURCE [employer] [facility] Comment:End[employer]ervix ADEQUACY: [employer] Comment: Satisfactory for evaluation. Endocervical/transformation zone component present. INTERPRETATION [employer] [facility] Comment:Negative for intraep ithelial lesion or malignancy. CYTOLOGY INFECTION Q [employer] [facility] Comment: Shift in vaginal maureen suggestive of bacterial vaginosis. COMMENT [facility] Comment: This Pap test has been evaluated with computer assisted technology. SOLID CENTER WINDER: [email or web address] [facility] Comment: MLO, CT(ASCP) CT screening location: [place] [address] [place] [address] Test Performed at: [place] [address] [place] [address] DEBBIE CHOPRA MD 11/02/2015 us Delphine Lua HAND BULLDOZER PATHOLOGY/CYTOLOGY ORDERABLES F inal Result [facility] [address] [place] [address] from Last 3 Months or Most Recently Relevant to Health Maintenance Insurance Advance Directives For more information, please contact: [phone] * Full Code (Latest Code Status on File) Date Activated Date Inactivated Comments 12/21/2013 9:08 PM 12/22/2013 6:32 PM Care Teams Polygraph Examiner Relationship Specialty Start Date End Date Soren Mart MD PCP - General 02/10/09
--- OUTSIDE RECORDS SUMMARY | 2024-09-21 02:00 | XMS_ITS | Encounter Summary ---
Author Organization [facility] Address [address] [place] [address] Care Team Providers Care College Athletic Director Name Role Phone Soren Mart MD Primary Care Provider [phone] Encounter Details Date Type Department Care Team (Late st Contact Info) Description 01/15/2006 Outpatient Historical [facility] Internal Medicine [address] [address] Inge Hutson MD NO ADDRESS ON FILE Social History Tobacco Use Types Packs/Day Years Used Date Smoking Tobacco: Never Assessed Comments Unknown Sex and Gender Information Value Date Recorded Sex Assigned at Not on file Legal Sex Female 3:43 AM BELT POLISHER Gender Identity Not on file Sexual Orientation Not on file documented as of this encounter Plan of Treatment Not on file documented as of this encounter Visit Diagnoses Not on filedocumented in this encounter Care Teams College Athletic Director Relationship Specialty Start Date End Date Soren Mart MD PCP - General 02/10/09 documented as of this encounter
--- OUTSIDE RECORDS SUMMARY | 2024-09-21 02:00 | XMS_ITS | Encounter Summary ---
Author Organization [facility] Address [address] [place] [address] Care Team Providers Care Center Maker Hand Name Role Phone Soren Mart MD Primary Care Provider Encounter Details Date Type Department Care Team (Late st Contact Info) Description 06/04/2006 Outpatient Historical [facility] Internal Medicine [address] [address] Inge Hutson MD NO ADDRESS ON FILE Social History Tobacco Use Types Packs/Day Years Used Date Smoking Tobacco: Never Assessed Comments Unknown Sex and Gender Information Value Date Recorded Sex Assigned at Not on file Legal Sex Female 3:43 AM WASHER OFF Gender Identity Not on file Sexual Orientation Not on file documented as of this encounter Plan of Treatment Not on file documented as of this encounter Visit Diagnoses Not on filedocumented in this encounter Care Teams Center Maker Hand Relationship Specialty Start Date End Date Soren Mart MD PCP - General 02/10/09 documented as of this encounter
--- OUTSIDE RECORDS SUMMARY | 2024-09-21 02:00 | XMS_ITS | Continuity of Care Document ---
Author Organization [facility] Address [address] [place] [address] Phone Care Team Providers Care Spreader Name Role Phone Maia Horner Unavailable Unavailable Advance Directives Directive Yes / No Effective Date File Name No Information Encounters Encounter Description Practice Location Reason(s) For Visit Diagnoses Date Provider Providers Copied on Encounter [facility], [address] [place] [address] [address], [place], [place], [id number], [place] tel:[phone] SEC [facility] [place] No Information May-0 9-200 0 Siri Carvalho. [address] , [address], [place], [address], [place]. tel:[phone] Family History Family Member Type Diagnosis Age [...]
--- OUTSIDE RECORDS SUMMARY | 2024-09-21 02:00 | XMS_ITS | Encounter Summary ---
Author Organization [facility] Address 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
--- OUTSIDE RECORDS SUMMARY | 2024-09-21 02:00 | XMS_ITS | Encounter Summary ---
Author Organization [facility] Address 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 LAB ORDERS: Order number: [id number] Test Ordered: HEMOCCULT SINGLE [id number] + PATIENT EDUCATION: Questions were allowed to stated satisfaction. PREVENTIVE COUNSELING The patient was counseled regarding diet. RETURN VISIT : please waive todays co-pay Electronically Signed by: Inge Hutson MD on Wednesday, June 07, 2006 documented in this encounter Plan of Treatment Not on file documented as of this encounter Visit Diagnoses Not on filedocumented in this encounter Care Teams Parking Ramp Attendant Relationship Specialty Start Date End Date Soren Mart MD PCP - General 02/10/09 documented as of this encounter
--- OUTSIDE RECORDS SUMMARY | 2024-09-21 02:01 | XMS_ITS | Encounter Summary ---
Author Organization [facility] Address [address] [place] [address] Care Team Providers Care Maitre D Name Role Phone Soren Mart MD Primary Care Provider [phone] Encounter Details Date Type Department Care Team (Late st Contact Info) Description 02/04/2008 Outpatient Historical [facility] Er, Authorized P NO ADDRESS ON FILE Ingrid Giang NP [address] [address] [place] [address] Social History Tobacco Use Types [...] PM CDT Narrative 02/04/2008 1:46 PM CDT [place] [address] [place], [place] [address] Admit Date: 02/04/2008 ANNI BRYANT Sex: F Admit Prov: IZA STEVENS Date: 1990 Primary Care Prov: CMRN: [id number] Room: [facility] SSN: [id number] IMAGING SERVICES Ordering Prov: N/A Accession Number: [id number] Interpretation Sinuses complete 4 views 02/04/2008 History: Headache. Findings: The paranasal sinuses are clear. The orbits are intact. The soft tissues are unremarkable. Impression: Unremarkable study. . Dictated by: VANDANA MCCRARY 02/04/2008 13:43 Electronically signed by: VANDANA MCCRARY 02/04/2008 13:44 Procedure Note Vandana Mccrary - 02[place]04[place]2008 [facility] [place] [address] [place], [place] [address] Admit Date: 02/04/2008 ANNI BRYANT Sex: F Admit Prov: ER, AUTHORIZED P Date: 1990 Primary Care Prov: CMRN: [id number] [facility] SS[facility]: [id number] IMAGING SERVICES Ordering Prov: N/A Interpretation Sinuses complete 4 views 02/04/2008 History: Headache. Findings: The paranasal sinuses are clear. The orbits are intact. Thesoft tissues are unremarkable. Impression: Unremarkable study. . Dictated by: VANDANA MCCRARY 02/04/2008 13:43 Electronically signed by: VANDANA MCCRARY 02/04/2008 13:44 Ingrid Giang NP DIAGNOSTIC IMAGING ORDERABLES Final Result * URINALYSIS (02/04/2008 1:15 PM CDT) KETONES UA Negative Negative [facility] CLARITY UA Clear Clear [facility] BILIRUBIN UA Negative Negative [facility] PROTEIN UA Negative Negative [facility] LEUKOCYTE ESTERASE UA Negative Negative [facility] SPECIFIC GRAVITY UA 1.005 1.001 - 1.035 [facility] GLUCOSE UA Negative Negative [facility] BLOOD UA Negative Negative [facility] COLOR UA Pale Yellow [facility] NITRITE UA Negative Negative [facility] UROBILINOGEN UA <1 <=1 mg/dL [facility] PH UA 7.0 5.0 - 8.0 [facility] 02/04/2008 1:15 PM CDT 02/04/2008 1:17 PM CDT Ingrid Giang NP URINE ORDERABLES Final Result INTERFACE SYSTEM Refer to clinic/hospital department [facility] CLIA# [id number] [address] [place] [address] * URINALYSIS WITH REFLEX CULTURE (02/04/2008 1:15 PM CDT) [facility] URINE CULTURE ORDER Not indicated [facility] Comment: Criteria for a reflex culture include one or more of the following: Abnormal nitrite, leukocyte esterase, WBCs or RBCs. Lack of qualifying criteria does not exclude the possiblity of a urinary tract infection. Dilute urine, drug interference, etc. may decrease the sensitivity of the criteria analytes. Urine specimen (specimen) 02/04/2008 1:15 PM CDT 02/04/2008 1:17 PM CDT Ingrid Giang TATTOO DESIGNER URINE ORDERABLES Final Result Performing Organization Address [facility] de Phone Number INTERFACE SYSTEM Refer to clinic/hospital department [facility] CLIA# [id number] [address] [place] [address] * POC , URINE (02/04/2008 1:11 PM CDT) [facility] , URINE POC Negative Negative [facility] SPECIFIC GRAVITY UA 1.010 1.001 - 1.035 [facility] Urine specimen (specimen) 02/04/2008 1:11 PM CDT 02/04/2008 1:11 PM CDT us Authorized P Er POINT OF CARE TESTING Final Resu lt Performing Organization Address [facility] de Phone Number INTERFACE SYSTEM Refer to clinic/hospital department [facility] CLIA# [id number] [address] [place] [address] * POC URINALYSIS DIPSTICK (02/04/2008 1:09 PM CDT) [facility] CLARITY UA Clear [facility] PROTEIN UA Negative Negative [facility] BLOOD UA Negative Negative [facility] LEUKOCYTE ESTERASE UA Negative Negative [facility] UROBILINOGEN UA Normal <=1 mg/dL [facility] SPECIFIC GRAVITY UA 1.010 1.001 - 1.030 [facility] GLUCOSE UA Negative Negative [facility] COLOR UA Pale [facility] BILIRUBIN UA Negative Negative [facility] NITRITE UA Negative Negative [facility] PH UA 7.0 5.0 - 8.0 [facility] KETONES UA Negative Negative [facility] COMMENT, URINE Test not chrgd/to repeat [facility] Urine specimen (specimen) 02/04/2008 1:09 PM CDT 02/04/2008 1:09 PM CDT us Authorized P Er POINT OF CARE TESTING Edited INTERFACE SYSTEM Refer to clinic/hospital department [facility] CLIA# [id number] [address] [place] [address] * (ABNORMAL) CBC WITH DIFFERENTIAL (02/04/2008 11:50 AM CDT) WBC 10.4(H) 4.0 - 9.8 K/uL [facility] MCH 30.4 27.2 - 32.6 pg [facility] MPV 10.3 9.3 - 12.4 fL [facility] HEMATOCRIT 37.5 35.5 - 44.0 % [facility] RDW-STDEV 42.9 37.1 - 48.7 fL [facility] RBC 4.08 3.90 - 4.90 M/uL [facility] MCHC 33.1 31.5 - 35.5 % [facility] MCV 91.9 82.0 - 99.0 fL [facility] PLATELETS 224 140 - 350 K/uL [facility] HEMOGLOBIN 12.4 11.8 - 14.8 g/dL [facility] RDW 12.7 11.5 - 14.5 % [facility] PLATELET EST. Consistent w/ count Normal [facility] LYMPHOCYTES 11(L) 16 - 45 % [facility] BASOPHILS ABSOLUTE 0.00 0.00 - 0.20 K/uL [facility] BASOPHILS 0 0 - 2 % [facility] MONOCYTE ABSOLUTE 0.31 0.10 - 1.30 K/uL [facility] MONOCYTES 3 3 - 13 % [facility] RBC MORPHOLOGY Normal Normal [facility] NEUTROPHIL ABSOLUTE 8.84(H) 1.90 - 7.00 K/uL [facility] NEUTROPHILS, SEG 85(H) 45 - 70 % [facility] ATYPICAL LYMPHOCYTE 1 0 - 5 % [facility] EOSINOPHIL ABSOLUTE 0.00 0.00 - 0.70 K/uL [facility] REVIEWED ON SMEAR Plt OK by Smear Rev. [facility] EOSINOPHILS 0 0 - 7 % [facility] LYMPHOCYTE ABSOLUTE 1.25 0.70 - 4.50 K/uL [facility] Blood specimen (specimen) 02/04/2008 11:50 AM CDT 02/04/2008 11:55 AM CDT us Ingrid Giang NP HEMATOLOGY ORDERABLES Edited INTERFACE SYSTEM Refer to clinic/hospital department [facility] CLIA# [id number] [address] [facility] [place] [address] * MONONUCLEOSIS SCREEN (02/04/2008 11:50 AM CDT) MONONUCLEOSIS SCREEN Negative Negative [facility] Blood specimen (specimen) 02/04/2008 11:50 AM CDT 02/04/2008 11:55 AM CDT Ingrid Giang NP HEMATOLOGY ORDERABLES Final R esult Performing Organization Address [facility] de Phone Number INTERFACE SYSTEM Refer to clinic/hospital department [facility] CLIA# [id number] [address] [place] [address] * C-REACTIVE PROTEIN (02/04/2008 11:50 AM CDT) Pathologist [facility] CRP 0.2 0.0 - 0.8 mg/dL [facility] Blood specimen (specimen) 02/04/2008 11:50 AM CDT 02/04/2008 11:55 AM CDT Ingrid Giang NP CHEMISTRY ORDERABLES Final Re sult Performing Organization Address [facility] de Phone Number INTERFACE SYSTEM Refer to clinic/hospital department [facility] CLIA# [id number] [address] [place] [address] * COMPREHENSIVE METABOLIC PANEL (02/04/2008 11:50 AM CDT) ALKALINE PHOSPHATASE 65 35 - 187 U/L [facility] BILIRUBIN TOTAL 0.4 0.2 - 1.0 mg/dL [facility] CO2 23 22 - 30 mmol/L [facility] TOTAL PROTEIN 7.1 6.3 - 8.6 g/dL [facility] POTASSIUM 3.9 3.5 - 4.9 mmol/L [facility] GLUCOSE 101 60 - 110 mg/dL [facility] AST 16 12 - 32 U/L [facility] BUN 10 6 - 20 mg/dL [facility] CALCIUM 9.0 8.4 - 10.2 mg/dL [facility] Comment:Note new reference r percy effective 01/14/08 CHLORIDE 103 96 - 108 mmol/L [facility] ALBUMIN 4.4 3.2 - 4.5 g/dL [facility] CREATININE 0.64 0.51 - 0.95 mg/dL [facility] SODIUM 135 135 - 145 mmol/L [facility] ALT 14 0 - 31 U/L [facility] GFR, N/A:MDRD equation validated for pts. >18 yrs. >=60 mL/min/1 .7 sq meter [facility] GFR N/A:MDRD equation validated for pts. >18 yrs. >=60 mL/min/1 .7 sq meter [facility] Comment: Modification of Diet in Renal Disease (MDRD) study formula. Estimated GFR rate interpretative information for both Americans and non- Americans is available on the [facility] Intranet at: [email or web address] Select: Lab Policies and Procedures Select: Reference Ranges - GFR Blood specimen (specimen) 02/04/2008 11:50 AM CDT 02/04/2008 11:55 AM CDT Ingrid Giang TATTOO DESIGNER CHEMISTRY ORDERABLES Edited INTERFACE SYSTEM Refer to clinic/hospital department [facility] CLIA# [id number] [address] [place] [address] documented in this encounter Visit Diagnoses Not on filedocumented in this encounter Care Teams Maitre D Relationship Specialty Start Date End Date Soren Mart MD PCP - General 02/10/09 documented as of this encounter
--- OUTSIDE RECORDS SUMMARY | 2024-09-21 02:01 | XMS_ITS | Encounter Summary ---
Author Organization [facility] Address 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 CURRENT ALLERGY LIST: NO KNOWN DRUG ALLERGY PROBLEMS: all x 2 weeks CONGESTION: Patient complains of sinus congestion, complains of head congestion, complains of chestcongestion, complains of nasal congestion. COUGH:Patient complains of cough. symptoms had improved some, but now rigo in head worse. SECTION 1: REQUESTED ACTION [facility] 01/16/07 at 04:13 pm: MEDICATION REQUEST: Patient wants medications and can not come in. DOCTOR`S RESPONSE: [facility] 01/16/07 at 04:[address] Mccormick MEDICATIONS: Call in to Pharmacy DIFLUCAN ORAL TABLET 150 MG, 1 Every Day, 1 Dispensed, status: NEW PRESCRIPTION, 01/16/2007. MEDROL (SANDRA) ORAL TABLET 4 MG, 1 PACKET ORAL DIRECTED, 1 Dispensed, status: NEW PRESCRIPTION, 01/16/2007. ZITHROMAX Z-SANDRA ORAL TABLET 250 MG, TAKE DIRECTED, 1 Dispensed, status: CONTINUED, 01/16/2007. also steam inhalations FINAL ACTION: [facility] 01/16/07 at 04:15 pm Spoke with patient 01/16/07 at 04:15 pm. mom printed script Electronically Signed by: Maribeth Sanchez on Friday, April 06, 2007 documented in this encounter Plan of Treatment Not on file documented as of this encounter Visit Diagnoses Not on filedocumented in this encounter Care Teams Operations Associate Relationship Specialty Start Date End Date Soren Mart MD PCP - General 02/10/09 documented as of this encounter
--- OUTSIDE RECORDS SUMMARY | 2024-09-21 02:01 | XMS_ITS | Encounter Summary ---
Author Organization [facility] Address 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 WHO TOOK THE CALL: Thuan Cohen N Julia GENERAL INFORMATION ALTERNATIVE PHONE NUMBER: [phone] WHO CALLED: Patient`s mother called. CURRENT ALLERGY LIST: NO KNOWN DRUG ALLERGY PHARMACY NUMBER: [phone] [employer] [facility] PROBLEMS: VAGINAL DISCHARGE: [...] some metrogel but would have her see rn gynecology if her sx persist. MEDICATIONS: Call in [...] on filedocumented in this encounter Care Teams Zmt Operator Relationship Specialty Start Date End Date Soren Mart MD PCP - General 02/10/09 documented as of this encounter
--- OUTSIDE RECORDS SUMMARY | 2024-09-21 02:01 | XMS_ITS | Encounter Summary ---
Author Organization [facility] Address 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 LAB ORDERS: Order number: [id number] Test Ordered: REMOVE CERUMEN IMPACT [id number] 682.0-OTHER CELLULITIS AND ABSCESS ASSESSMENT: advised warm [...] on filedocumented in this encounter Care Teams Family Dentist Relationship Specialty Start Date End Date Soren Mart MD PCP - General 02/10/09 documented as of this encounter
--- OUTSIDE RECORDS SUMMARY | 2024-09-21 02:01 | XMS_ITS | Encounter Summary ---
Author Organization [facility] Address [address] [place] [address] Care Team Providers Care Superintendent Name Role Phone Soren Mart MD Primary Care Provider [phone] Encounter Details Date Type Department Care Team (Late st Contact Info) Description 10/30/2005 Outpatient Historical [facility] Internal Medicine [address] [address] Inge Hutson MD NO ADDRESS ON FILE Social History Tobacco Use Types Packs/Day Years Used Date Smoking Tobacco: Never Assessed Comments Unknown Sex and Gender Information Value Date Recorded Sex Assigned at Not on file Legal Sex Female 3:43 AM ARCHITECT NAVAL Gender Identity Not on file Sexual Orientation [...] 10/30/2005 3:0 0 PM CDT Growth Chart: [facility] (Girls, 2- 20 Years) documented in this encounter Plan of Treatment Not on file documented as of this encounter Visit Diagnoses Not on filedocumented in this encounter Care Teams Superintendent Relationship Specialty Start Date End Date Soren Mart MD PCP - General 02/10/09 documented as of this encounter
--- OUTSIDE RECORDS SUMMARY | 2024-09-21 02:01 | XMS_ITS | Encounter Summary ---
Author Organization [facility] Address 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
--- OUTSIDE RECORDS SUMMARY | 2024-09-21 02:01 | XMS_ITS | Encounter Summary ---
Author Organization [facility] Address [address] [place] [address] Care Team Providers Care Grinder Operator Surface Tool Name Role Phone Soren Mart MD Primary Care Provider [phone] Encounter Details Date Type Department Care Team (Late st Contact Info) Description 07/06/2007 Orders Only [facility] Internal Medicine [address] [address] Inge Hutson MD NO [...] HOME PHONE: PATIENT`S WORK PHONE: PATIENT`S INSURANCE: [facility] WHO TOOK THE CALL: Amelia Lee R GENERAL INFORMATION ALTERNATIVE PHONE NUMBER: [phone] or Jonas- Amelia WHO CALLED: Patient called. [...] on filedocumented in this encounter Care Teams Grinder Operator Surface Tool Relationship Specialty Start Date End Date Soren Mart MD PCP - General 02/10/09 documented as of this encounter
--- OUTSIDE RECORDS SUMMARY | 2024-09-21 02:01 | XMS_ITS | Encounter Summary ---
Author Organization [facility] Address 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
--- OUTSIDE RECORDS SUMMARY | 2024-09-21 02:01 | XMS_ITS | Encounter Summary ---
Author Organization [employer] Address [address] [place] [address] Care Team Providers Care Clerk Funeral Detail Name Role Phone Soren Mart MD Primary Care Provider Encounter Details Date Type Department Care Team (Latest Contact Info) Description 02/06/2009 Outpatient Historical [facility] Soren Mart MD [address] [place] [address] Head Injury, Unspecified Social History Tobacco Use Types Packs/Day Years Used Date Smoking Tobacco: Never Alcohol Use Standard Drinks/Week Comments Not Asked 0 (1 standard drink = 0.6 oz pur e alcohol) Comments No Sex and Gender Information Value Date Recorded Sex Assigned at Not on file Legal Sex Female 3:43 AM HAT DESIGNER Gender Identity Not on file Sexual Orientation Not on file documented as of this encounter Plan of Treatment Not on file documented as of this encounter Visit Diagnoses Diagnosis Head injury, unspecified documented in this encounter Care Teams Clerk Funeral Detail Relationship Specialty Start Date End Date Soren Mart MD PCP - General 02/10/09 documented as of this encounter
--- OUTSIDE RECORDS SUMMARY | 2024-09-21 02:01 | XMS_ITS | Encounter Summary ---
Author Organization [employer] Address [address] [place] [address] Care Team Providers Care Lace And Textiles Restorer Name Role Phone Soren Mart MD Primary Care Provider [phone] Encounter Details Date Type Department Care Team (Latest Contact Info) Description 07/06/2005 [facility], History FX MID/PRX PHAL, HAND-CLOSE (Primary Dx) Social History Tobacco Use Types Packs/Day Years Used Date Smoking Tobacco: Never Assessed Comments Unknown Sex and Gender Information Value Date Recorded Sex Assigned at Not on file Legal Sex Female 3:43 AM CAT HOOKER Gender Identity Not on file Sexual Orientation Not on file documented as of this encounter Plan of Treatment Not on file documented as of this encounter Visit Diagnoses Diagnosis Closed fracture of middle or proximal phalanx or phalanges of hand- Primary documented in this encounter Care Teams Lace And Textiles Restorer Relationship Specialty Start Date End Date Soren Mart MD PCP - General 02/10/09 documented as of this encounter
--- OUTSIDE RECORDS SUMMARY | 2024-09-21 02:01 | XMS_ITS | Encounter Summary ---
Author Organization [email or web address] Address [address] [place] [address] Care Team Providers Care Orthopaedic Technologist Name Role Phone Soren Mart MD Primary Care Provider [phone] Encounter Details Date Type Department Care Team (Late st Contact Info) Description 03/14/2005 Outpatient Historical [facility] Support [facility]. (Peds Cardiology-[place]) [address] [facility] [place] [address] Warner Flores MD NO ADDRESS ON FILE Social History Tobacco Use Types Packs/Day Years Used Date Smoking Tobacco: Never Assessed Comments Unknown Sex and Gender Information Value Date Recorded Sex Assigned at Not on file Legal Sex Female 3:43 AM ENVIRONMENTAL COMPLIANCE ENGINEER Gender Identity Not on file Sexual Orientation Not on file documented as of this encounter Plan of Treatment Not on file documented as of this encounter Visit Diagnoses Not on filedocumented in this encounter Care Teams Orthopaedic Technologist Relationship Specialty Start Date End Date Soren Mart MD PCP - General 02/10/09 documented as of this encounter
--- OUTSIDE RECORDS SUMMARY | 2024-09-21 02:01 | XMS_ITS | Encounter Summary ---
Author Organization [employer] Address 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 Please refer to surgeon s operative report for specific details. Dictated by: RADIOLOGY, DEPARTMENT O Electronically signed by: RADIOLOGY, DEPARTMENT 10/01/2008 11:39 Transcribed: 10/01/2008 07:42 AMK Procedure Note Radiology, Radiologist - 10/01/2008 [address] [place], [place] [address] Admit Date: 09/23/2008 ANNI BRYANT Sex: F Admit Prov: ELMO REICH Date: 1990 Primary Care Prov: CMRN: [id number] [id number] IM[facility] Ordering Prov: ELMO REICH Interpretation [...] AM CDT) , URINE POC Negative Negative [facility] Urine specimen (specimen) 09/23/2008 10:00 AM CDT 09/23/2008 10:00 AM CDT Elmo Reich MD POINT OF CARE TESTING Final Re sult Performing Organization Address City/[facility] de Phone Number INTERFACE SYSTEM Refer to clinic/hospital department [facility] CLIA# [id number] [address] [place] [address] * HEMOGLOBIN AND HEMATOCRIT (09/23/2008 9:50 AM CDT) HEMOGLOBIN 12.3 11.8 - 14.8 g/dL [facility] HEMATOCRIT 37.5 35.5 - 44.0 % [facility] Blood specimen (specimen) 09/23/2008 9:50 AM CDT 09/23/2008 10:05 AM CDT Narrative INTERFACE SYSTEM - 09/23/2008 10:15 AM CDT room 6 Elmo Reich MD HEMATOLOGY ORDERABLES Final Re sult Performing Organization Address [facility] Phone Number INTERFACE SYSTEM Refer to clinic/hospital department [facility] CLIA# [id number] [address] [place] [address] documented in this encounter Visit Diagnoses Not on filedocumented in this encounter Care Teams Wet Machine Cutter Relationship Specialty Start Date End Date Soren Mart MD PCP - General 02/10/09 documented as of this encounter
--- OUTSIDE RECORDS SUMMARY | 2024-09-21 02:01 | XMS_ITS | Clinical Summary ---
Author Organization [facility] Address [address] [place] [address] Phone Care Team Providers Care Cyber Reverse Engineer Name Role Phone Denny Norman MD Primary Care Provider [phone] Allergies No known active allergies Medications prazosin [...] drink = 0.6 oz pur e alcohol) [employer] Answer Date Recorded In the past 12 months has [facility] [facility], [employer], oil, or water [employer] threatened to shut off services in your [...] week 11/20/2023 How often do you attend [facility] or roman catholic services? Patient declined 11/20/2023 Do you belong [...] medical care, and heating? Patient declined 11/20/2023 [facility] - Occupational Stress Questionnaire Answer Date [...] place to sleep or slept in a intermediate (including now)? No 11/20/2023 Education Answer Date Recorded What is the highest level of school you have completed or the highest degree you have received? Associate degree: academic program 01/08/2023 Sexually Active Control Partners Comments Yes None Male Comments No Sex and Gender Information Value Date Recorded Sex Assigned at Female 07/09/2023 12:53 PM MEDICAL STAFF SERVICES MANAGER Legal Sex Female 1:59 PM CDT Gender Identity Female 07/09/2023 12:53 PM MEDICAL STAFF SERVICES MANAGER Sexual Orientation Straight 07/09/2023 12 :53 PM MEDICAL STAFF SERVICES MANAGER Last Filed Vital Signs Vital Sign Reading [...] exam with routine gynecological exam PATHOLOGY CYTOLOGY PLANT PACKER Routine 02/21/2023 2:35 PM CDT Well woman exam with routine gynecological exam from Last 3 Months or Most Recently Relevant to Health Maintenance Results * HEPATITIS C ANTIBODY (02/24/2024 12:00 AM CDT) 02/24/2024 us Provider Scan CHEMISTRY ORDERABLES Final Resul t SCAN * PATHOLOGY CYTOLOGY PLANT PACKER (02/21/2023 2:35 PM CDT) SPECIMEN ADEQUACY Satisfactory for evaluation. Endocervical/transf ormation zone component is present. 03/11/2023 3:22 PM CDT [facility] GENERAL CATEGORY EPITHELIAL CELL ABNORMALITY. 03/11/2023 3:22 PM CDT [facility] DESCRIPTIVE DIAGNOSIS ASCUS: Atypical squamous cells of undetermined significance. 03/11/2023 3:22 PM CDT [facility] at 1522 CDT OTHER FINDINGS Fungal organisms present, morphologically consistent with Ricarda species. 03/11/2023 3:22 PM CDT [facility] Automated Examination Analysis of this sample has been assisted by an automated imaging and review system ([employer] Imaging System, [employer], [place], [place]). This case is further evaluated and finalized by a promotions intern and/or pathologist. 03/11/2023 3:22 PM CDT [facility] Disclaimer The PAP smear is [...] unless clinically indicated. 03/11/2023 3:22 PM CDT [facility] Other CERVIX UTERI STRUCTURE / Unknown Non-Phlebotomy Collection / Unknown 02/21/2023 2:35 PM CDT 02/21/2023 2:35 PM CDT us Amelia Beard APRN, ANIMAL IMPERSONATOR PATHOLOGY/CYTOLOGY ORDER ADAM Final Result Performing Organization Address City/State/[facility] Co de Phone Number [facility] [address] [place] [address], * (ABNORMAL) HUMAN PAPILLOMA VIRUS (HPV) (02/21/2023 2:35 PM CDT) HPV OTHER HIGH RISK TYPES, PCR POSITIVE(A) NEGATIVE 02/25/2023 7:37 AM CDT [facility] Comment: Positive for one or more of the following Other High HPV types: 31, 33, 35, 39, 45, 51, 52, 56, 58, 59, 66, and 68. False-positive results have been reported with molecular assays. If these positive results are discordant with clinical/cytohistologic findings, repeat testing may be considered after an appropriate interval. HPV TYPE 16 NEGATIVE NEGATIVE 02/25/2023 7:37 AM CDT [facility] Comment: A negative high-risk HPV [...] 18 NEGATIVE NEGATIVE 02/25/2023 7:37 AM CDT [facility] Comment: A negative high-risk HPV [...] OR DIAGNOSTIC SCREENING 02/25/2023 7:37 AM CDT [facility] Other Non-Phlebotomy Collection / Unknown 02/21/2023 2:35 PM CDT 02/21/2023 2:35 PM CDT Narrative [facility] - 02/25/2023 7:37 AM CDT Performed by Real-Time Polymerase Chain Reaction (PCR) on the Caryl Marcellus 4800. This assay has been validated for use with post-aliquot samples from the [employer] T5000 processor. us Amelia Beard APRN, ANIMAL IMPERSONATOR LAB SEND OUTS Final Re sult [facility] [address] [place] [address], [place] from Last 3 Months or Most Recently Relevant to Health Maintenance Insurance MEDICAID [employer] Care Teams Cyber Reverse Engineer Relationship Specialty Start Date End Date Denny Norman MD [address] [address] PCP - General Family Medicine 01/08/23
--- OUTSIDE RECORDS SUMMARY | 2024-09-21 02:01 | XMS_ITS | Encounter Summary ---
Author Organization [facility] Address 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 CURRENT ALLERGY LIST: NO KNOWN DRUG ALLERGY PHARMACY NUMBER: [phone] PROBLEMS: EARACHE: Patient complains of earache. The [...] filedocumented in this encounter Care Teams Process Assistant Relationship Specialty Start Date End Date Soren Mart MD PCP - General 02/10/09 documented as of this encounter
--- OUTSIDE RECORDS SUMMARY | 2024-09-21 02:01 | XMS_ITS | Encounter Summary ---
Author Organization [facility] Address [address] [place] [address] Care Team Providers Care Fermentologist Name Role Phone Soren Mart MD Primary Care Provider [phone] Encounter Details Date Type Department Care Team (Late st Contact Info) Description 04/06/2007 Orders Only [facility] Internal Medicine [address] [address] Inge Hutson MD NO ADDRESS ON FILE Social History Tobacco Use Types Packs/Day Years Used Date Smoking Tobacco: Never Assessed Comments Unknown Sex and Gender Information Value Date Recorded Sex Assigned at Not on file Legal Sex Female 3:43 AM CODER OPERATOR Gender Identity Not on file Sexual Orientation Not on file documented as of this encounter Progress Notes * Inge Hutson MD - 10/30/2007 1:35 PM CDT TIME:08:59 am PATIENT`S HOME PHONE: PATIENT`S WORK PHONE: PATIENT`S INSURANCE: [facility] WHO TOOK THE CALL: Amelia Lee R GENERAL INFORMATION ALTERNATIVE PHONE NUMBER: [phone] or Amelia at work WHO CALLED: Patient`s mother called. CURRENT ALLERGY LIST: NO KNOWN DRUG ALLERGY PHARMACY NUMBER: [phone] PROBLEMS: feeling bad , achy FEVER: Patient [...] on filedocumented in this encounter Care Teams Fermentologist Relationship Specialty Start Date End Date Soren Mart MD PCP - General 02/10/09 documented as of this encounter
--- OUTSIDE RECORDS SUMMARY | 2024-09-21 02:01 | XMS_ITS | Encounter Summary ---
Author Organization [facility] Address [address] [place] [address] Care Team Providers Care Ditching Machine Operator Name Role Phone Soren Mart MD Primary Care Provider [phone] Encounter Details Date Type Department Care Team (Latest Contact Info) Description 04/27/2008 Outpatient Historical [facility] Conversion, History Urinary Tract Infection, Site not Specified Social History Tobacco Use Types Packs/Day Years Used Date Smoking Tobacco: Never Assessed Comments Unknown Sex and Gender Information Value Date Recorded Sex Assigned at Not on file Legal Sex Female 3:43 AM EMERGENCY MANAGEMENT DIRECTOR Gender Identity Not on file Sexual Orientation Not on file documented as of this encounter Plan of Treatment Not on file documented as of this encounter Procedures Procedure Name Priority Date/Time Associated Diagnosis Comments CHLAMYDIA/N. GONORRHOEAE, DNA Routine 04/27/2008 7:34 PM EMERGENCY MANAGEMENT DIRECTOR URINE CULTURE Routine 04/27/2008 7:34 PM EMERGENCY MANAGEMENT DIRECTOR documented in this encounter Results * URINE CULTURE (04/27/2008 7:34 PM EMERGENCY MANAGEMENT DIRECTOR) FINAL REPORT 50-100,000 colonies/mL Escherichia coli <10,000 colonies/mL Streptococcus Group B -NOTE: In women, recovery of Group B Streptococcus may be significant. However, in non- women, recovery in small quantities suggests contamination with blue urethral maureen. Normal urethral maureen also present. - Phoned report (with read back verified) to [facility] () 04/29/08 10:43:23 -- Faxed report(s): [phone] [facility] SUSCEPTIBILITY PERFORMED ON ESCHERICHIA COLI [facility] 04/27/2008 7:34 PM EMERGENCY MANAGEMENT DIRECTOR 04/27/2008 8:27 PM EMERGENCY MANAGEMENT DIRECTOR Narrative Organism Antibiotic Method Susceptibility Escherichia coli [...] ORDERA BLES Final Result Performing Organization Address City/[facility]/ZIP Co de Phone Number INTERFACE SYSTEM Refer to clinic/hospital department [facility] CLIA# [id number] [address] [place] [address] * CHLAMYDIA/N. GONORRHOEAE, DNA (04/27/2008 7:34 PM EMERGENCY MANAGEMENT DIRECTOR) CHLAMYDIA TRACHOMATIS DNA NOT DETECTED NOT DETECTED [facility] NEISSERIA GONORRHOEAE DNA NOT DETECTED NOT DETECTED [facility] Comment: Lab test performed by: [facility] [address] [address] ZURDO FIGUEROA MD Specimen of unknown material (specimen) URINE SPECIMEN / Unknown 04/27/2008 7:34 PM EMERGENCY MANAGEMENT DIRECTOR 04/27/2008 8:08 PM EMERGENCY MANAGEMENT DIRECTOR us History Conversion BODY FLUIDS AND STOOLS Final Result Performing Organization Address City/[facility]/ZIP Co de Phone Number INTERFACE SYSTEM Refer to clinic/hospital department [facility] CLIA# [id number] [address] [place] [address] documented in this encounter Visit Diagnoses Diagnosis Urinary tract infection, site not specified documented in this encounter Care Teams Ditching Machine Operator Relationship Specialty Start Date End Date Soren Mart MD PCP - General 02/10/09 documented as of this encounter
--- OUTSIDE RECORDS SUMMARY | 2024-09-21 02:01 | XMS_ITS | Encounter Summary ---
Author Organization [facility] Address 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 Ameila Scripted printed & given to Amelia. joann Electronically Signed by: Maribeth Sanchez on Tuesday, April 24, 2007 documented in this encounter Plan of Treatment Not on file documented as of this encounter Visit Diagnoses Not on filedocumented in this encounter Care Teams Shot Fireman Relationship Specialty Start Date End Date Soren Mart MD PCP - General 02/10/09 documented as of this encounter
--- OUTSIDE RECORDS SUMMARY | 2024-09-21 02:01 | XMS_ITS | Encounter Summary ---
Author Organization [employer] Address [address] [place] [address] Care Team Providers Care County Treasurer Name Role Phone Soren Mart MD Primary Care Provider [phone] Encounter Details Date Type Department Care Team [...] on file Legal Sex Female 3:43 AM SOLE LAYER Gender Identity Not on file Sexual Orientation [...] PM CDT Narrative 08/25/2008 9:51 PM CDT [address] [place], [place] [address] Admit Date: 08/25/2008 ANNI BRYANT Sex: F Admit Prov: ER, AUTHORIZED P Date: 1990 Primary Care Prov: CMRN: [id number] Room: ER-A N: [address] [place] [address] IMAGING SERVICES Ordering Prov: N/A Accession Number: [id number] Interpretation EXAMINATION: LEFT FIFTH FINGER, 3 VIEWS. [...] Procedure Note Denver Panda MD - 08/25/2008 [address] [place], [place] [address] Admit Date: 08/25/2008 ANNI BRYANT Sex: F Admit Prov: ER, AUTHORIZED P Date: 1990 Primary Care Prov: CMRN: [id number] [id number] IMAGING SERVICES Ordering Prov: N/A Interpretation EXAMINATION: [...] premises documented in this encounter Care Teams County Treasurer Relationship Specialty Start Date End Date Soren Mart MD PCP - General 02/10/09 documented as of this encounter
--- OUTSIDE RECORDS SUMMARY | 2024-09-21 02:01 | XMS_ITS | Encounter Summary ---
Author Organization [facility] Address [address] [place] [address] Care Team Providers Care Central Melt Specialist Name Role Phone Soren Mart MD Primary Care Provider Encounter Details Date Type Department Care Team (Late st Contact Info) Description 08/24/2007 Outpatient Historical [facility] Internal Medicine [address] [address] Soren Mart MD [address] [place] [address] Social History Tobacco Use Types Packs/Day Years Used Date Smoking Tobacco: Never Assessed Comments Unknown Sex and Gender Information Value Date Recorded Sex Assigned at Not on file Legal Sex Female 3:43 AM POLICE AIDE Gender Identity Not on file Sexual Orientation Not on file documented as of this encounter Plan of Treatment Not on file documented as of this encounter Visit Diagnoses Not on filedocumented in this encounter Care Teams Central Melt Specialist Relationship Specialty Start Date End Date Soren Mart MD PCP - General 02/10/09 documented as of this encounter
--- OUTSIDE RECORDS SUMMARY | 2024-09-21 02:01 | XMS_ITS | Encounter Summary ---
Author Organization [facility] Address [address] [place] [address] Care Team Providers Care Supervisor Electronics Inspection Name Role Phone Soren Mart MD Primary Care Provider [phone] Encounter Details Date Type Department Care Team (Late st Contact Info) Description 07/08/2007 Orders Only [facility] Internal Medicine [address] [address] Inge Hutson MD NO ADDRESS ON FILE Social History Tobacco Use Types Packs/Day Years Used Date Smoking Tobacco: Never Assessed Comments Unknown Sex and Gender Information Value Date Recorded Sex Assigned at Not on file Legal Sex Female 3:43 AM DIATHERMY EQUIPMENT REPAIRER Gender Identity Not on file Sexual Orientation Not on file documented as of this encounter Progress Notes * Inge Hutson MD - 10/28/2007 8:18 PM CDT TIME:01:31 pm PATIENT`S HOME PHONE: PATIENT`S WORK PHONE: PATIENT`S INSURANCE: [facility] [employer] [facility] WHO TOOK THE CALL: Amelia Lee R GENERAL INFORMATION WHO CALLED: Patient`s mother called. CURRENT ALLERGY LIST: NO KNOWN DRUG ALLERGY PHARMACY NUMBER: [phone] PROBLEMS: CONGESTION: Patient complains of congestion. COUGH:Patient [...] on filedocumented in this encounter Care Teams Supervisor Electronics Inspection Relationship Specialty Start Date End Date Soren Mart MD PCP - General 02/10/09 documented as of this encounter
--- OUTSIDE RECORDS SUMMARY | 2024-09-21 02:01 | XMS_ITS | Encounter Summary ---
Author Organization [facility] Address [address] [place] [address] Care Team Providers Care Assurance Analyst Name Role Phone Soren Mart MD Primary Care Provider Encounter Details Date Type Department Care Team (Late st Contact Info) Description 04/30/2006 Outpatient Historical [facility] Internal Medicine [address] [address] Inge Hutson MD NO ADDRESS ON FILE Social History Tobacco Use Types Packs/Day Years Used Date Smoking Tobacco: Never Assessed Comments Unknown Sex and Gender Information Value Date Recorded Sex Assigned at Not on file Legal Sex Female 3:43 AM TUTORING CLINICIAN Gender Identity Not on file Sexual Orientation Not on file documented as of this encounter Plan of Treatment Not on file documented as of this encounter Visit Diagnoses Not on filedocumented in this encounter Care Teams Assurance Analyst Relationship Specialty Start Date End Date Soren Mart MD PCP - General 02/10/09 documented as of this encounter
--- OUTSIDE RECORDS SUMMARY | 2024-09-21 02:01 | XMS_ITS | Encounter Summary ---
Author Organization [facility] [facility] Address [address] [place] [address] Care Team Providers Care Client Integration Manager Name Role Phone Soren Mart MD Primary Care Provider [phone] Encounter Details Date Type Department Care Team (Late st Contact Info) Description 02/27/2012 Chart Note [facility] [place] [address] [facility] [address] [place] [address] Radha Mcallister, Physical Therapist Social History Tobacco Use Types Packs/Day Years Used Date Smoking Tobacco: Never Smokeless Tobacco: Never Alcohol Use Standard Drinks/Week Comments No 0 (1 standard drink = 0.6 oz pur e alcohol) Comments No Sex and Gender Information Value Date Recorded Sex Assigned at Not on file Legal Sex Female 3:43 AM FLEXBOARD OPERATOR Gender Identity Not on file Sexual [...] this referral. Radha Mcallister P[facility] Therapy Services [address] [place] [address]. [address] [place] [address] documented in this encounter Plan of Treatment Not on file documented as of this encounter Visit Diagnoses Not on filedocumented in this encounter Care Teams Client Integration Manager Relationship Specialty Start Date End Date Soren Mart MD PCP - General 02/10/09 documented as of this encounter
--- OUTSIDE RECORDS SUMMARY | 2024-09-21 02:01 | XMS_ITS | Encounter Summary ---
Author Organization [facility] Address [address] [place] [address] Care Team Providers Care Billing Adjudicator Name Role Phone Soren Mart MD Primary Care Provider [phone] Encounter Details Date Type Department Care Team (Late st Contact Info) Description 05/20/2007 Orders Only [facility] Internal Medicine [address] [address] Inge Hutson MD NO ADDRESS ON FILE Social History Tobacco Use Types Packs/Day Years Used Date Smoking Tobacco: Never Assessed Comments Unknown Sex and Gender Information Value Date Recorded Sex Assigned at Not on file Legal Sex Female 3:43 AM E M ASSEMBLER Gender Identity Not on file Sexual Orientation Not on file documented as of this encounter Progress Notes * Inge Hutson MD - 10/29/2007 9:49 AM CDT TIME:11:45 am PATIENT`S HOME PHONE: PATIENT`S WORK PHONE: PATIENT`S INSURANCE: [facility] [employer] [facility] WHO TOOK THE CALL: Amelia Lee R GENERAL INFORMATION ALTERNATIVE PHONE NUMBER: here WHO CALLED: Patient`s mother called. 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 Can you prescribe a few for the stomach cramps. She has to go back to school to be able to be in [employer]'s performance. NAUSEA: Patient complains of nausea. The [...] on filedocumented in this encounter Care Teams Billing Adjudicator Relationship Specialty Start Date End Date Soren Mart MD PCP - General 02/10/09 documented as of this encounter
--- OUTSIDE RECORDS SUMMARY | 2024-09-21 02:01 | XMS_ITS | Encounter Summary ---
Author Organization [facility] Address [address] [place] [address] Care Team Providers Care Operations Section Manager Name Role Phone Soren Mart MD Primary Care Provider Encounter Details Date Type Department Care Team (Late st Contact Info) Description 08/24/2007 Outpatient Historical [facility] Internal Medicine [address] [address] Soren Mart MD [address] [place] [id number] Social History Tobacco Use Types Packs/Day Years Used Date Smoking Tobacco: Never Assessed Comments Unknown Sex and Gender Information Value Date Recorded Sex Assigned at Not on file Legal Sex Female 3:43 AM 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
--- OUTSIDE RECORDS SUMMARY | 2024-09-21 02:01 | XMS_ITS | Encounter Summary ---
Author Organization [facility] Address [address] [place] [address] Care Team Providers Care Dough Cutter Name Role Phone Soren Mart MD Primary Care Provider [phone] Encounter Details Date Type Department Care Team (Latest Contact Info) Description 03/14/2005 Outpatient Historical HIS [facility] BLDG Conversion, History CHEST PAIN NEC (Primary Dx) Social History Tobacco Use Types Packs/Day Years Used Date Smoking Tobacco: Never Assessed Comments Unknown Sex and Gender Information Value Date Recorded Sex Assigned at Not on file Legal Sex Female 3:43 AM MOTOR BOSS Gender Identity Not on file Sexual [...] ORDERABLES Final R esult Performing Organization Address City/[facility] de Phone Number INTERFACE SYSTEM Refer [...] ORDERABLES Final R esult Performing Organization Address City/[facility] de Phone Number INTERFACE SYSTEM Refer [...] Primary documented in this encounter Care Teams Dough Cutter Relationship Specialty Start Date End Date Soren Mart MD PCP - General 02/10/09 documented as of this encounter
--- OUTSIDE RECORDS SUMMARY | 2024-09-21 02:01 | XMS_ITS | Encounter Summary ---
Author Organization [employer] Address [address] [place] [address] Care Team Providers Care Accounts Payable Supervisor Name Role Phone Soren Mart MD Primary Care Provider [phone] Encounter Details Date Type Department Care Team (Late st Contact Info) Description 01/15/2006 [facility] FILE Pain in Joint, Ankle and Foot (Primary Dx) Social History Tobacco Use Types Packs/Day Years Used Date Smoking Tobacco: Never Assessed Comments Unknown Sex and Gender Information Value Date Recorded Sex Assigned at Not on file Legal Sex Female 3:43 AM HOG TENDER Gender Identity Not on file Sexual Orientation Not on file documented as of this encounter Plan of Treatment Not on file documented as of this encounter Visit Diagnoses Diagnosis Pain in joint, ankle and foot- Primary documented in this encounter Care Teams Accounts Payable Supervisor Relationship Specialty Start Date End Date Soren Mart MD PCP - General 02/10/09 documented as of this encounter
--- OUTSIDE RECORDS SUMMARY | 2024-09-21 02:01 | XMS_ITS | Encounter Summary ---
Author Organization [employer] Address [address] [place] [address] Care Team Providers Care Agricultural Mechanic Name Role Phone Porter Christianson MD Primary Care Provider [phone] Encounter Details Date Type Department Care Team (Latest Contact Info) Description 08/24/2007 Outpatient Historical HIS [facility] Porter Christianson MD [address] [place] [id number] Brain Injury NEC (CMS/HCC) Social History Tobacco Use Types Packs/Day Years Used Date Smoking Tobacco: Never Assessed Comments Unknown Sex and Gender Information Value Date Recorded Sex Assigned at Not on file Legal Sex Female 3:43 AM AUDITOR/QUALITY Gender Identity Not on file Sexual Orientation [...] AM CDT Narrative 08/24/2007 1:35 PM CDT [facility] [address] [place], [place] [address] Admit Date: 08/24/2007 ANNI BRYANT Sex: F Admit Prov: PORTER CHRISTIANSON Date: 1990 Primary Care Prov: ALYX REGAN CMRN: [id number] [id number] Ordering Prov: N/A Accession Number: [id number] Interpretation CT HEAD WITHOUT CONTRAST, 08/23/2005 History: [...] CUONG SHAFFER 08/24/2007 13:35 Transcribed: 08/24/2007 13:11 [facility] Procedure Note Provider, Historical - 08/24/2007 [place] [id number] [place], [place] [address] Admit Date: 08/24/2007 ANNI BRYANT Sex: F Admit Prov: PORTER CHRISTIANSON Date: 1990 Primary Care Prov: ALYX REGAN CMRN: [id number] [id number] IMAGING SERVICES Ordering Prov: N/A Interpretation CT [...] consciousness documented in this encounter Care Teams Agricultural Mechanic Relationship Specialty Start Date End Date Porter Christianson MD PCP - General 02/10/09 documented as of this encounter
--- OUTSIDE RECORDS SUMMARY | 2024-09-21 02:01 | XMS_ITS | Encounter Summary ---
Author Organization [employer] Address [address] [place] [address] Care Team Providers Care Yard Crane Operator Name Role Phone Soren Mart MD Primary Care Provider [phone] Encounter Details Date Type Department Care Team (Late st Contact Info) Description 05/21/2008 Outpatient Historical HIS [facility] Dario Coronel MD [address] [place] [address] Social History Tobacco Use Types Packs/Day Years Used Date Smoking Tobacco: Never Assessed Comments Unknown Sex and Gender Information Value Date Recorded Sex Assigned at Not on file Legal Sex Female 3:43 AM COMMUNITY REINVESTMENT ACT OFFICER Gender Identity Not on file Sexual Orientation Not on file documented as of this encounter Plan of Treatment Not on file documented as of this encounter Procedures Procedure Name Priority Date/Time Associated Diagnosis Comments URINE CULTURE Routine 05/21/2008 11:47 AM COMMUNITY REINVESTMENT ACT OFFICER documented in this encounter Results * URINE CULTURE (05/21/2008 11:47 AM COMMUNITY REINVESTMENT ACT OFFICER) PRELIMINARY REPORT Pending [facility] FINAL REPORT No growth 24 hours [facility] 05/21/2008 11:4 7 AM COMMUNITY REINVESTMENT ACT OFFICER 05/21/2008 6:10 PM COMMUNITY REINVESTMENT ACT OFFICER us Dario Coronel MD MICROBIOLOGY - GENERAL ORDER ADAM Final Result INTERFACE SYSTEM Refer to clinic/hospital department [facility] CLIA# [id number] [address] [place] [address] documented in this encounter Visit Diagnoses Not on filedocumented in this encounter Care Teams Yard Crane Operator Relationship Specialty Start Date End Date Soren Mart MD PCP - General 02/10/09 documented as of this encounter
--- OUTSIDE RECORDS SUMMARY | 2024-09-21 02:01 | XMS_ITS | Encounter Summary ---
Author Organization [employer] Address [address] [place] [address] Care Team Providers Care Service Attendant Cafeteria Name Role Phone Soren Mart MD Primary Care Provider [phone] Encounter Details Date Type Department Care Team (Latest Contact Info) Description 03/14/2005 Outpatient Historical HIS CARDIOPULMONARY Conversion, History CHEST PAIN NEC (Primary Dx) Social History Tobacco Use Types Packs/Day Years Used Date Smoking Tobacco: Never Assessed Comments Unknown Sex and Gender Information Value Date Recorded Sex Assigned at Not on file Legal Sex Female 3:43 AM DISK SANDER Gender Identity Not on file Sexual Orientation Not on file documented as of this encounter Plan of Treatment Not on file documented as of this encounter Visit Diagnoses Diagnosis Other chest pain- Primary documented in this encounter Care Teams Service Attendant Cafeteria Relationship Specialty Start Date End Date Soren Mart MD PCP - General 02/10/09 documented as of this encounter
--- OUTSIDE RECORDS SUMMARY | 2024-09-21 02:01 | XMS_ITS | Encounter Summary ---
Author Organization [facility] Address [address] [place] [place] [address] Phone Care Team Providers Care Travel Accommodations Rater Name Role Phone Denny Norman MD Primary Care Provider [phone] Encounter Details Date Type Department Care Team (Late st Contact Info) Description 01/02/2023 Telephone [facility] [address] [place] [address] Provider, None [place] Social History Tobacco Use Types Packs/Day Years Used Date Smoking Tobacco: Never Assessed Comments Unknown Sex and Gender Information Value Date Recorded Sex Assigned at Female 07/09/2023 12:53 PM SEMICONDUCTOR WAFER INSPECTOR Legal Sex Female 1:59 PM CDT Gender Identity Female 07/09/2023 12:53 PM SEMICONDUCTOR WAFER INSPECTOR Sexual Orientation Straight 07/09/2023 12 :53 PM SEMICONDUCTOR WAFER INSPECTOR documented as of this encounter Miscellaneous Notes [...] see someone other than physician, such as COMPOUND COATING MACHINE OFFBEARER, [place], resident? yes Patient reason for appointment/any current symptoms: establish care med refills Other information (including need for rigging loft repairer): no documented in this encounter Plan of Treatment Not on file documented as of this encounter Visit Diagnoses Not on filedocumented in this encounter Care Teams Travel Accommodations Rater Relationship Specialty Start Date End Date Denny Norman MD #[address] [address] PCP - General Family Medicine 01/08/23 documented as of this encounter
--- OUTSIDE RECORDS SUMMARY | 2024-09-21 02:01 | XMS_ITS | Encounter Summary ---
Author Organization [facility] Address [address] [place] [address] Care Team Providers Care Concrete Building Assembler Name Role Phone Soren Mart MD Primary Care Provider Encounter Details Date Type Department Care Team (Late st Contact Info) Description 07/06/2007 Outpatient Historical [facility] Internal Medicine [address] [address] Inge Hutson MD NO ADDRESS ON FILE Social History Tobacco Use Types Packs/Day Years Used Date Smoking Tobacco: Never Assessed Comments Unknown Sex and Gender Information Value Date Recorded Sex Assigned at Not on file Legal Sex Female 3:43 AM TRIGONOMETRY TUTOR Gender Identity Not on file Sexual Orientation Not on file documented as of this encounter Last Filed Vital Signs Vital Sign Reading Time Taken Comments Blood Pressure - - Pulse - - Temperature 37 C (98.6 F) 07/06/2007 11:45 AM TRIGONOMETRY TUTOR Respiratory Rate - - Oxygen Saturation - - Inhaled Oxygen Concentration - - Weight 68 kg (150 lb) 07/06/2007 11:45 AM TRIGONOMETRY TUTOR Height - - Body Mass Index - - documented in this encounter Plan of Treatment Not on file documented as of this encounter Visit Diagnoses Not on filedocumented in this encounter Care Teams Concrete Building Assembler Relationship Specialty Start Date End Date Soren Mart MD PCP - General 02/10/09 documented as of this encounter
[2024-09-21] MEDS: ONDANSETRON INJ 4 MG/2 ML VIAL IV PUSH (02:14)
[2024-09-21] MEDS: LABETALOL HCL INJ 100 MG/20 ML VIAL 20 MG IV PUSH (02:14)
[2024-09-21] MEDS: MORPHINE SULFATE (*CRX) 2 MG/ML INJ IV PUSH (02:14)
[2024-09-21 02:31] LABS: Add Urine Microscopic? YES; Appearance Urine Cloudy (Clear); Bacteria Urine 1+ /hpf; Bilirubin Urine Negative (Negative); Blood Urine 3+ (Negative); Color Urine Yellow (Yellow); Glucose Urine UA Negative (Negative); Ketones Urine Negative (Negative); Leukocyte Esterase Ur 2+ LEU/UL (Negative); Nitrate Urine Negative (Negative); Non Pathogenic Casts 0-2; Protein Urine 2+ mg/dL (Negative); Specific Grav Ur 1.011 (1.001-1.035); Squamous Epithelial Cell Urine Few /hpf (Few); Urobilinogen Urine 0.2 mg/dL (<2.0); WBC Urine >100 /hpf (0-3)
--- NOTE | 2024-09-21 02:37 | ED_ITS ---
HPI - Recheck/Abnormal Lab/Rx General Chief Complaint: Recheck/Abnormal Lab/Rx Stated Complaint: s/p / now CP, LINK, Foot swelling Time Seen by Provider: 09/21/24 01:47 Source: patient Mode of arrival: ambulatory Limitations: no limitations History of Present Illness HPI narrative: This is a 34-year-old female, with history of gestational hypertension, who presents emergency department complaining of left-sided chest pain, headache in bilateral foot swelling for the past day. The patient states she underwent C- section 5 days ago for gestational hypertension. She states she has had no other complaints or concerns though did have a in the family. She denies loss of consciousness, change/loss of vision, weakness/numbness or difficulty breathing. She has no other complaints at this time. Related Data Home Medications ?Medication ?Instructions ?Recorded ?Confirmed ?Last Taken ?Type oseltamivir 75 mg capsule (Tamiflu) 75 mg PO Q12H 09/16/24 09/16/24 09/16/24 History Allergies Allergy/AdvReac Type Severity Reaction Status Date / Time No Known Allergies Allergy Verified 09/16/24 09:16 Review of Systems 2 Review of Systems: All systems reviewed & are unremarkable except as noted in HPI and below PMFSH Past Medical History Medical History History of pre-eclampsia in prior , currently Genital warts due to HPV (human papillomavirus) Abnormal Pap smear of cervix delivery delivered Thoracic outlet syndrome GERD (gastroesophageal reflux disease) Anxiety Surgical History Surgical History [place] teeth extracted H/O colposcopy with cervical biopsy Family History Family History Mother Diabetes mellitus Father Heart disease Diabetes mellitus Hypertension Grandparent Cancer Social History Social History Smoking status: Never smoker Alcohol intake: never Substance use: never Substance use type: does not use Do You Feel Safe in your Home?: Yes Lack of Transportation: No Lack of Food: Never True Current Housing: I Have Housing Concerned About Future Housing: No Difficulty Paying Gas/Electric Bills: No Difficulty Paying for Meds: No Currently Unemployed: No Education: Associate Degree Difficulty w/ Childcare or Family Care: No Spiritual care concerns: No Exam 2 Narrative: GENERAL: Well-developed, well-nourished, and in no acute distress. HEAD: Normocephalic, atraumatic. EYES: PERRLA and EOMI. CHEST: Clear to auscultation. No respiratory distress. No wheezes rales or rhonchi HEART: Regular rate and rhythm. No murmur heard. Normal peripheral pulses. ABDOMEN: Soft, nontender, nondistended, normal active bowel sounds. EXTREMITIES: Normal range of motion. Trace to 1+ bilateral lower extremity edema SKIN: Warm, dry, no rash. NEURO: Alert and oriented x3. No focal deficit. Moving all 4 limbs spontaneously PSYCH: Normal mood and affect. Course Course Emergency Course: 02:21 -CBC demonstrates slightly elevated white blood cell count of 11.1. Hemoglobin 9.8, slightly decreased from 10.9 prior to her . Chemistries demonstrate mild hyponatremia with sodium of 136. BNP slightly elevated 132. Troponin negative. Urinalysis demonstrates 2+ protein, leukocyte esterase, RBCs and white blood cells with bacteria. Chest x-ray on my review not concerning for pulmonary edema. EKG unremarkable. I discussed the patient with OB physician, Dr. Roe who accepts admission. Vital Signs Vital signs: Vital Signs Respiratory Rate 18 09/21/24 00:29 Pulse Oximetry 99 09/21/24 00:29 Temperature 97.6 F 09/21/24 04:17 Pulse Rate 90 09/21/24 07:00 Respiratory Rate 14 09/21/24 04:17 Blood Pressure 123/68 09/21/24 07:00 Pulse Oximetry 97 09/21/24 07:29 MDM - Recheck/Abnormal Lab/Rx MDM Narrative Medical decision making narrative: Plan: Labs, blood pressure control, EKG, troponin, OB consult, reassess Differential Diagnosis Differential diagnosis: Likely other (Preeclampsia, hypertension, ACS, metabolic abnormality, other) Lab Data 09/21/24 00:34 09/21/24 00:34 Labs: Lab Results 09/21/24 09/21/24 09/21/24 Range/Units 00:34 00:34 02:20 WBC 11.1 H (4.5-10.0) K/mm3 RBC 3.25 L (4.2-5.4) M/mm3 Hgb 9.8 L (12.0-15.0) g/dL Hct 31.8 L (37.0-47.0) % MCV 97.8 (80-100) fl MCH 30.2 (26-34) pg MCHC 30.8 L (32-36) g/dl RDW 13.9 (11.5-14.5) % Plt Count 328 (150-375) k/mm3 MPV 9.1 (7.4-10.4) fl Immature Gran % (Auto) 1.1 H (0-0.5) % Neut % (Auto) 65.8 (45.5-73.1) % Lymph % (Auto) 24.7 (18.3-44.2) % [place] % (Auto) 4.8 (2.6-8.5) % Eos % (Auto) 3.2 (0-4.4) % Baso % (Auto) 0.4 (0.2-1.2) % Lymph # (Auto) 2.75 (0.9-3.2) K/mm3 [place] # (Auto) 0.5 (0.1-0.6) K/mm3 Eos # (Auto) 0.4 H (0-0.3) K/mm3 Baso # (Auto) 0.1 (0.0-0.1) K/mm3 Abs Immat Gran (auto) 0.12 H (0.00-0.031) K/mm3 Absolute Neuts (auto) 7.3 H (1.3-6.7) K/mm3 Absolute Nucleated RBC 0.000 (0.0-0.012) K/mm3 Nucleated RBC % 0.0 (0.0-0.2) % PT 13.2 (11.1-14.7) Seconds INR 1.0 APTT 30.8 (22.3-36.8) Seconds Sodium 136 L (137-145) mmol/L Potassium 4.2 (3.4-5.0) mmol/L Chloride 103 (98-107) mmol/L Carbon Dioxide 27 (22-30) mmol/L Anion Gap 6 (4-12) mmol/L BUN 18 H (7-17) mg/dL Creatinine 0.95 (0.7-1.0) mg/dL Estim Creat Clear Calc 92 ml/min Estimated GFR > 60 (59 - ) Glucose 96 (65-110) mg/dL Calcium 8.9 (8.4-10.2) mg/dL Total Bilirubin 0.2 (0.2-1.3) mg/dL AST 33 (14-36) U/L ALT 24 (6-35) U/L Alkaline Phosphatase 81 (38-126) U/L Troponin I < 0.012 (0.000-0.034) ng/mL NT-Pro-B Natriuret Pep Cancelled 132 H Total Protein 6.0 L (6.3-8.2) g/dL Albumin 3.2 L (3.5-5.1) g/dL Lipase 39 (23-300) U/L Urine Color Yellow (Yellow) Urine Appearance Cloudy H (Clear) Urine pH 7.0 (5.0-9.0) Ur Specific [place] 1.011 (1.001-1.035) Urine Protein 2+ H (Negative) mg/dL Urine Glucose (UA) Negative (Negative) mg/dL Urine Ketones Negative (Negative) mg/dL Ur Blood (Man) 3+ H (Negative) Urine Nitrate Negative (Negative) Urine Bilirubin Negative (Negative) Urine Urobilinogen 0.2 (<2.0) mg/dL Leukocyte Esterase Rfl 2+ H (Negative) CINDY/UL Urine RBC 11-20 H (0-2) /hpf Urine WBC >100 H (0-3) /hpf Ur Squamous Epith Cells Few (Few) /hpf Urine Bacteria 1+ H /hpf Urine Casts 0-2 U Random Total Protein 118 mg/dL Urine Creatinine 40.7 mg/dL Protein/Creat Ratio 2 2.90 H (0-0.20) mg/mg ECG Data EKG #1: Attestation: I personally reviewed and interpreted this ECG as follows: ECG completion date: 09/21/24 ECG completion time: 00:31 Prior ECG tracings: not available for review Interpretation: Sinus tachycardia, rate 100, normal axis, no ST segment elevations or T-wave inversions concerning for ischemia, normal intervals with QTC of 407. Discharge Plan Discharge Clinical Impression: Pre-eclampsia Qualifiers: Trimester: unspecified trimester Qualified Code(s): O14.90 - Unspecified pre- eclampsia, unspecified trimester Patient Disposition: Still a Patient Condition: Serious
[2024-09-21] MEDS: MAGNESIUM SULF 4 GM/WATER100ML 4 GM/100 ML BAG IVPB ×2 (02:44→03:59)
--- NOTE | 2024-09-21 03:50 | PC.NURSE ---
0310- ED nurse callled to give report to this RN, no questions at this time. 0323- Patient arrived to OB from ED. RN did head to toe assessment as well as vital signs upon arrival. Patient is still complaining of chest pain, the patient states this is the worst chest pain I've ever had. Patient states her grandmother unexpectedly today and that she has been up with family all day. Patient states she also had a headache that ibuprofen did not help with and that she noticed significant swelling on her BLE that was not there prior. 0337- RN notified Bhupinder TAVERA of patient arrival. RN also clarified orders from ED, Dr. Roe made changes to current medication orders, see MAR for details. RN also notified MD of lab reults, VS, assessment, and patient complaints, as well as what medications were given in the ED. gave additional orders, see EMR.
[2024-09-21] MEDS: LACTATED RINGERS 1,000 ML 75 ML IV CONT ×2 (04:00→16:38)
[2024-09-21] MEDS: MAGNESIUM SULF 20GM/WATER500ML 500 ML 50 MG IV CONT ×3 (04:17→23:50)
[2024-09-21] MEDS: HYDROcodone/acetaminophen (*CRX) 5-325 MG TABLET 1 TAB PO ×4 (04:18→18:48)
[2024-09-21 04:22] LABS: Creatinine Urine 40.7 mg/dL; Total Protein Urine Random 118 mg/dL
--- NOTE | 2024-09-21 06:27 | PC.NURSE ---
Report given to Angie Paula RN
[2024-09-21] MEDS: IBUPROFEN 600 MG TABLET PO ×2 (06:44→12:29)
--- NOTE | 2024-09-21 07:15 | PC.NURSE ---
0715 Breast pump provided due to mother is and pumping at home, she does not have her own breast pump with her. Instructions given on cleaning, care, usage, that there should be no pain, pumping schedule for milk production, collection, and storage of human milk. Patient was assessed for correct placement, flange size, to pump for comfort and nipple stretching/stimulation for adequate milk production every 3 hours (8 times in 24 hours) 1-2 times at night.?Mother voiced understanding of the education shared along with mom/baby guide and the pump measurement, flange fit handout for additional resource information. Reported to the Primary RN.
--- NOTE | 2024-09-21 08:27 | PM.IMHP ---
H&P: HPI History of Present Illness Date/Time: 09/21/24 08:27 Chief Complaint: Headaches and chest pain Narrative: patient is a 34-year-old post op day number 5. Status post repeat . Her course also significant for gestational hypertension she did have a headache and normal blood pressures headache resolved soon after delivery. She did not receive magnesium. Pressures remained normal . She presented to ED due to chest pain. Midsternal. Also complained of a severe headache. On her left side. Denies scotomata or right upper quadrant pain. She has had increased stress due to recent sudden of her grandmother. She also was worried that she woke up this morning with swelling in her legs bilaterally denies any leg pain. Lochia has been normal. She had chest pain workup in the ED. There was an order for continued subsequent EKG and troponin. she had an EKG which showed possible left atrial enlargement. This can occur . [facility] Past Medical History Medical History History of pre-eclampsia in prior , currently Genital warts due to HPV (human papillomavirus) Abnormal Pap smear of cervix delivery delivered Thoracic outlet syndrome GERD (gastroesophageal reflux disease) Anxiety Surgical History Surgical History [place] teeth extracted H/O colposcopy with cervical biopsy Family History Family History Mother Diabetes mellitus Father Heart disease Diabetes mellitus Hypertension Grandparent Cancer Social History Social History Smoking status: Never smoker Alcohol intake: never Substance use: never Substance use type: does not use Do You Feel Safe in your Home?: Yes Lack of Transportation: No Lack of Food: Never True Current Housing: I Have Housing Concerned About Future Housing: No Difficulty Paying Gas/Electric Bills: No Difficulty Paying for Meds: No Currently Unemployed: No Education: Associate Degree Difficulty w/ Childcare or Family Care: No Spiritual care concerns: No Meds Home Medications and Allergies Home Medications ?Medication ?Instructions ?Recorded ?Confirmed ?Type oseltamivir 75 mg capsule (Tamiflu) 75 mg PO Q12H 09/16/24 09/16/24 History hydrocodone 5 mg-acetaminophen 325 1 tablet PO Q3H PRN Breakthrough 09/17/24 Rx mg tablet Pain Rated 4-6 #20 tabs ibuprofen 600 mg tablet 600 mg PO Q6H #20 tabs 09/18/24 Rx Allergies Allergy/AdvReac Type Severity Reaction Status Date / Time No Known Allergies Allergy Verified 09/16/24 09:16 Vital Signs Vital Signs - 24 hr 09/21/24 00:29 09/21/24 00:33 09/21/24 02:47 Temperature Pulse Rate 98 92 Respiratory Rate 18 19 19 Blood Pressure 157/97 H 133/74 Pulse Oximetry 99 99 98 09/21/24 03:23 09/21/24 03:29 09/21/24 03:30 Temperature 97.1 F L Pulse Rate 88 88 Respiratory Rate 16 Blood Pressure 118/53 L 118/53 L Pulse Oximetry 98 98 09/21/24 03:34 09/21/24 03:39 09/21/24 03:43 Temperature 97.0 F L Pulse Rate 84 Respiratory Rate 17 Blood Pressure 105/55 L Pulse Oximetry 98 97 96 09/21/24 03:44 09/21/24 03:45 09/21/24 03:49 Temperature Pulse Rate 84 Respiratory Rate Blood Pressure 105/55 L Pulse Oximetry 96 96 09/21/24 03:54 09/21/24 03:59 09/21/24 04:00 Temperature Pulse Rate 89 Respiratory Rate Blood Pressure 94/50 L Pulse Oximetry 95 99 09/21/24 04:04 09/21/24 04:09 09/21/24 04:14 Temperature Pulse Rate Respiratory Rate Blood Pressure Pulse Oximetry 97 98 99 09/21/24 04:15 09/21/24 04:17 09/21/24 04:19 Temperature 97.6 F Pulse Rate 80 80 Respiratory Rate 14 Blood Pressure 100/61 100/61 Pulse Oximetry 99 100 09/21/24 04:22 09/21/24 04:23 09/21/24 04:28 Temperature Pulse Rate 85 Respiratory Rate Blood Pressure 103/57 L Pulse Oximetry 97 97 09/21/24 04:30 09/21/24 04:33 09/21/24 04:38 Temperature Pulse Rate 100 Respiratory Rate Blood Pressure 124/76 Pulse Oximetry 98 97 09/21/24 04:43 09/21/24 04:48 09/21/24 04:53 Temperature Pulse Rate Respiratory Rate Blood Pressure Pulse Oximetry 95 95 94 09/21/24 04:58 09/21/24 05:00 09/21/24 05:03 Temperature Pulse Rate 89 Respiratory Rate Blood Pressure 103/57 L Pulse Oximetry 95 95 09/21/24 05:08 09/21/24 05:13 09/21/24 05:18 Temperature Pulse Rate Respiratory Rate Blood Pressure Pulse Oximetry 94 94 95 09/21/24 05:23 09/21/24 05:28 09/21/24 05:33 Temperature Pulse Rate Respiratory Rate Blood Pressure Pulse Oximetry 95 97 96 09/21/24 05:38 09/21/24 05:43 09/21/24 05:48 Temperature Pulse Rate Respiratory Rate Blood Pressure Pulse Oximetry 97 95 95 09/21/24 05:53 09/21/24 05:58 09/21/24 06:03 Temperature Pulse Rate Respiratory Rate Blood Pressure Pulse Oximetry 96 94 96 09/21/24 06:08 09/21/24 06:13 09/21/24 06:18 Temperature Pulse Rate Respiratory Rate Blood Pressure Pulse Oximetry 96 98 95 09/21/24 06:44 09/21/24 06:49 09/21/24 06:54 Temperature Pulse Rate Respiratory Rate Blood Pressure Pulse Oximetry 99 98 97 09/21/24 06:59 09/21/24 07:00 09/21/24 07:04 Temperature Pulse Rate 90 Respiratory Rate Blood Pressure 123/68 Pulse Oximetry 98 98 09/21/24 07:09 09/21/24 07:14 09/21/24 07:19 Temperature Pulse Rate Respiratory Rate Blood Pressure Pulse Oximetry 100 100 100 09/21/24 07:24 09/21/24 07:29 09/21/24 07:34 Temperature Pulse Rate Respiratory Rate Blood Pressure Pulse Oximetry 100 97 98 09/21/24 07:39 09/21/24 07:44 09/21/24 07:49 Temperature Pulse Rate Respiratory Rate Blood Pressure Pulse Oximetry 98 98 99 09/21/24 07:54 09/21/24 07:59 09/21/24 08:04 Temperature Pulse Rate Respiratory Rate Blood Pressure Pulse Oximetry 98 96 96 09/21/24 08:09 09/21/24 08:14 09/21/24 08:19 Temperature Pulse Rate Respiratory Rate Blood Pressure Pulse Oximetry 97 94 94 09/21/24 08:24 Temperature Pulse Rate Respiratory Rate Blood Pressure Pulse Oximetry 95 Exam Const: General: no acute distress HENMT: Head: normal to inspection Eyes: General: appearance normal, both eyes and all related structures Resp: Effort & Inspection: normal respiratory effort Auscultation: clear to auscultation bilaterally ( Occasional upper rhonchi cleared with deeper breast) Cardio: Rate: regular rate Rhythm: regular rhythm GI: Inspection: normal to inspection ( fundus below nontender) Back/Spine/Pelvis: Other: 1+ LE edema bilat nontender, nonpitting H&P: Results Labs Labs: Short CBC 09/21/24 Range/Units 00:34 WBC 11.1 H (4.5-10.0) K/mm3 Hgb 9.8 L (12.0-15.0) g/dL Hct 31.8 L (37.0-47.0) % Plt Count 328 (150-375) k/mm3 BMP 09/21/24 00:34 Sodium 136 L Potassium 4.2 Chloride 103 Carbon Dioxide 27 BUN 18 H Creatinine 0.95 Glucose 96 Calcium 8.9 Cardiac Enzymes 09/21/24 Range/Units 00:34 Troponin I < 0.012 (0.000-0.034) ng/mL Liver Function 09/21/24 Range/Units 00:34 Total Bilirubin 0.2 (0.2-1.3) mg/dL AST 33 (14-36) U/L ALT 24 (6-35) U/L Alkaline Phosphatase 81 (38-126) U/L Albumin 3.2 L (3.5-5.1) g/dL Urine 09/21/24 Range/Units 02:20 Urine Color Yellow (Yellow) Urine Appearance Cloudy H (Clear) Urine pH 7.0 (5.0-9.0) Ur Specific [place] 1.011 (1.001-1.035) Urine Protein 2+ H (Negative) mg/dL Urine Glucose (UA) Negative (Negative) mg/dL Assessment and Plan Assessment and plan (1) Headache in , : Code(s): O90.89 - Other complications of the puerperium, not elsewhere classified; R51.9 - Headache, unspecified Status: Acute Assessment and Plan: May be related to hypertension she had isolated elevated blood pressures and she did have elevated blood pressures prior to delivery there were normal prior to that. Headache resolved after delivery. Will treat for preeclampsia will start magnesium for 24 hours. Only significance on labs was the protein creatinine ratio was elevated though she is having lochia. Also possible UTI based on urinalysis. Urine culture results pending. Will treat with Ancef. (2) Chest pain: Code(s): R07.9 - Chest pain, unspecified Status: Acute Assessment and Plan: She had initial evaluation in the ED. EKG results reviewed. Will order cardiology consultation due to her symptoms and borderline EKG reading. (3) Gastroesophageal reflux: Code(s): K21.9 - Gastro-esophageal reflux disease without esophagitis Status: Acute Assessment and Plan: she has a history of reflux. Will start Pepcid. Normal liver function test. (4) UTI (urinary tract infection): Code(s): N39.0 - Urinary tract infection, site not specified Status: Acute Assessment and Plan: Will start Ancef. Culture pending.
[2024-09-21] MEDS: FAMOTIDINE 20 MG TABLET PO ×2 (08:45→21:15)
[2024-09-21] MEDS: CYCLOBENZAPRINE HCL 10 MG TABLET PO (08:45)
[2024-09-21] MEDS: busPIRone HCL 10 MG TABLET PO ×2 (08:45→16:38)
[2024-09-21] MEDS: ceFAZolin 1 GM/NS 50 ML 1 GM/50 ML BAG IVPB ×2 (09:13→16:59)
--- NOTE | 2024-09-21 14:18 | PM.CNCAR ---
Assessment and Plan Assessment and plan (1) Chest pain: Code(s): R07.9 - Chest pain, unspecified Status: Acute Assessment and Plan: Troponin negative x 1. Will obtain second troponin. EKG without ischemic changes. Will obtain echocardiogram. History of Present Illness History of Present Illness Consult date/time: 09/21/24 14:18 Requesting physician: Jaydon Powell MD Consult reason: chest pain Reason For Visit: Preeclampsia Narrative: We are consulted for chest pain. This is a 34 year old female who is post-op day 5 from a who presented due to chest pain. Chest pain is sharp, left anterior with radiation to left arm. Started having chest pain after hearing news of her grandmother's . She is currently being treated for pre-eclampsia. Troponin is negative. NT pro BNP is 132. CXR is normal. EKG shows sinus tachycardia, possible left atrial enlargement, no ischemic changes. Chest pain did get worse with inspiration. Review of Systems Review of Systems: All systems reviewed & are unremarkable except as noted in HPI and below (HPI) FORMERLY [facility] Past Medical History Medical History History of pre-eclampsia in prior , currently Genital warts due to HPV (human papillomavirus) Abnormal Pap smear of cervix delivery delivered Thoracic outlet syndrome GERD (gastroesophageal reflux disease) Anxiety Surgical History Surgical History [place] teeth extracted H/O colposcopy with cervical biopsy Family History Family History Mother Diabetes mellitus Father Heart disease Diabetes mellitus Hypertension Grandparent Cancer Social History Social History Smoking status: Never smoker Alcohol intake: never Substance use: never Substance use type: does not use Do You Feel Safe in your Home?: Yes Lack of Transportation: No Lack of Food: Never True Current Housing: I Have Housing Concerned About Future Housing: No Difficulty Paying Gas/Electric Bills: No Difficulty Paying for Meds: No Currently Unemployed: No Education: Associate Degree Difficulty w/ Childcare or Family Care: No Spiritual care concerns: No Meds Home Medications and Allergies Home Medications ?Medication ?Instructions ?Recorded ?Confirmed ?Type oseltamivir 75 mg capsule (Tamiflu) 75 mg PO Q12H 09/16/24 09/16/24 History hydrocodone 5 mg-acetaminophen 325 1 tablet PO Q3H PRN Breakthrough 09/17/24 Rx mg tablet Pain Rated 4-6 #20 tabs ibuprofen 600 mg tablet 600 mg PO Q6H #20 tabs 09/18/24 Rx Allergies Allergy/AdvReac Type Severity Reaction Status Date / Time No Known Allergies Allergy Verified 09/16/24 09:16 Vital Signs Vital Signs - 24 hr 09/21/24 00:29 09/21/24 00:33 09/21/24 02:47 Temperature Pulse Rate 98 92 Respiratory Rate 18 19 19 Blood Pressure 157/97 H 133/74 Pulse Oximetry 99 99 98 Oxygen Delivery 09/21/24 03:23 09/21/24 03:29 09/21/24 03:30 Temperature 36.2 C L Pulse Rate 88 88 Respiratory Rate 16 Blood Pressure 118/53 L 118/53 L Pulse Oximetry 98 98 Oxygen Delivery 09/21/24 03:34 09/21/24 03:39 09/21/24 03:43 Temperature 36.1 C L Pulse Rate 84 Respiratory Rate 17 Blood Pressure 105/55 L Pulse Oximetry 98 97 96 Oxygen Delivery 09/21/24 03:44 09/21/24 03:45 09/21/24 03:49 Temperature Pulse Rate 84 Respiratory Rate Blood Pressure 105/55 L Pulse Oximetry 96 96 Oxygen Delivery 09/21/24 03:54 09/21/24 03:59 09/21/24 04:00 Temperature Pulse Rate 89 Respiratory Rate Blood Pressure 94/50 L Pulse Oximetry 95 99 Oxygen Delivery 09/21/24 04:04 09/21/24 04:09 09/21/24 04:14 Temperature Pulse Rate Respiratory Rate Blood Pressure Pulse Oximetry 97 98 99 Oxygen Delivery 09/21/24 04:15 09/21/24 04:17 09/21/24 04:19 Temperature 36.4 C Pulse Rate 80 80 Respiratory Rate 14 Blood Pressure 100/61 100/61 Pulse Oximetry 99 100 Oxygen Delivery 09/21/24 04:22 09/21/24 04:23 09/21/24 04:28 Temperature Pulse Rate 85 Respiratory Rate Blood Pressure 103/57 L Pulse Oximetry 97 97 Oxygen Delivery 09/21/24 04:30 09/21/24 04:33 09/21/24 04:38 Temperature Pulse Rate 100 Respiratory Rate Blood Pressure 124/76 Pulse Oximetry 98 97 Oxygen Delivery 09/21/24 04:43 09/21/24 04:48 09/21/24 04:53 Temperature Pulse Rate Respiratory Rate Blood Pressure Pulse Oximetry 95 95 94 Oxygen Delivery 09/21/24 04:58 09/21/24 05:00 09/21/24 05:03 Temperature Pulse Rate 89 Respiratory Rate Blood Pressure 103/57 L Pulse Oximetry 95 95 Oxygen Delivery 09/21/24 05:08 09/21/24 05:13 09/21/24 05:18 Temperature Pulse Rate Respiratory Rate Blood Pressure Pulse Oximetry 94 94 95 Oxygen Delivery 09/21/24 05:23 09/21/24 05:28 09/21/24 05:33 Temperature Pulse Rate Respiratory Rate Blood Pressure Pulse Oximetry 95 97 96 Oxygen Delivery 09/21/24 05:38 09/21/24 05:43 09/21/24 05:48 Temperature Pulse Rate Respiratory Rate Blood Pressure Pulse Oximetry 97 95 95 Oxygen Delivery 09/21/24 05:53 09/21/24 05:58 09/21/24 06:03 Temperature Pulse Rate Respiratory Rate Blood Pressure Pulse Oximetry 96 94 96 Oxygen Delivery 09/21/24 06:08 09/21/24 06:13 09/21/24 06:18 Temperature Pulse Rate Respiratory Rate Blood Pressure Pulse Oximetry 96 98 95 Oxygen Delivery 09/21/24 06:25 09/21/24 06:44 09/21/24 06:49 Temperature Pulse Rate Respiratory Rate Blood Pressure Pulse Oximetry 99 98 Oxygen Delivery Room Air 09/21/24 06:54 09/21/24 06:59 09/21/24 07:00 Temperature Pulse Rate 90 Respiratory Rate Blood Pressure 123/68 Pulse Oximetry 97 98 Oxygen Delivery 09/21/24 07:04 09/21/24 07:09 09/21/24 07:14 Temperature Pulse Rate Respiratory Rate Blood Pressure Pulse Oximetry 98 100 100 Oxygen Delivery 09/21/24 07:19 09/21/24 07:24 09/21/24 07:29 Temperature Pulse Rate Respiratory Rate Blood Pressure Pulse Oximetry 100 100 97 Oxygen Delivery 09/21/24 07:34 09/21/24 07:39 09/21/24 07:44 Temperature Pulse Rate Respiratory Rate Blood Pressure Pulse Oximetry 98 98 98 Oxygen Delivery 09/21/24 07:49 09/21/24 07:54 09/21/24 07:59 Temperature Pulse Rate Respiratory Rate Blood Pressure Pulse Oximetry 99 98 96 Oxygen Delivery 09/21/24 08:04 09/21/24 08:09 09/21/24 08:14 Temperature Pulse Rate Respiratory Rate Blood Pressure Pulse Oximetry 96 97 94 Oxygen Delivery 09/21/24 08:17 09/21/24 08:19 09/21/24 08:24 Temperature 36.2 C L Pulse Rate Respiratory Rate 18 Blood Pressure Pulse Oximetry 94 95 Oxygen Delivery 09/21/24 08:29 09/21/24 08:34 09/21/24 08:39 Temperature Pulse Rate Respiratory Rate Blood Pressure Pulse Oximetry 95 98 99 Oxygen Delivery 09/21/24 08:44 09/21/24 08:49 09/21/24 09:00 Temperature Pulse Rate Respiratory Rate Blood Pressure Pulse Oximetry 100 98 Oxygen Delivery Room Air 09/21/24 09:01 09/21/24 09:03 09/21/24 09:08 Temperature Pulse Rate 99 Respiratory Rate Blood Pressure 142/90 H Pulse Oximetry 100 100 Oxygen Delivery 09/21/24 09:13 09/21/24 09:16 09/21/24 09:21 Temperature Pulse Rate Respiratory Rate Blood Pressure Pulse Oximetry 100 97 99 Oxygen Delivery 09/21/24 09:26 09/21/24 09:31 09/21/24 09:36 Temperature Pulse Rate Respiratory Rate Blood Pressure Pulse Oximetry 94 95 96 Oxygen Delivery 09/21/24 09:41 09/21/24 09:46 09/21/24 09:51 Temperature Pulse Rate Respiratory Rate Blood Pressure Pulse Oximetry 95 98 94 Oxygen Delivery 09/21/24 09:56 09/21/24 10:01 09/21/24 10:06 Temperature Pulse Rate Respiratory Rate Blood Pressure Pulse Oximetry 95 95 95 Oxygen Delivery 09/21/24 10:11 09/21/24 10:16 09/21/24 10:21 Temperature Pulse Rate Respiratory Rate Blood Pressure Pulse Oximetry 94 95 95 Oxygen Delivery 09/21/24 10:26 09/21/24 10:31 09/21/24 10:36 Temperature Pulse Rate Respiratory Rate Blood Pressure Pulse Oximetry 95 96 97 Oxygen Delivery 09/21/24 10:41 09/21/24 10:46 09/21/24 10:51 Temperature Pulse Rate Respiratory Rate Blood Pressure Pulse Oximetry 97 96 96 Oxygen Delivery 09/21/24 10:56 09/21/24 11:00 09/21/24 11:01 Temperature Pulse Rate 99 Respiratory Rate Blood Pressure 106/62 Pulse Oximetry 96 100 Oxygen Delivery 09/21/24 11:06 09/21/24 11:10 09/21/24 11:35 Temperature 36.4 C L Pulse Rate Respiratory Rate 16 Blood Pressure Pulse Oximetry 97 98 Oxygen Delivery 09/21/24 11:40 09/21/24 11:45 09/21/24 11:50 Temperature Pulse Rate Respiratory Rate Blood Pressure Pulse Oximetry 97 96 96 Oxygen Delivery 09/21/24 11:55 09/21/24 12:00 09/21/24 12:05 Temperature Pulse Rate Respiratory Rate Blood Pressure Pulse Oximetry 96 96 97 Oxygen Delivery 09/21/24 12:10 09/21/24 12:15 09/21/24 12:17 Temperature 36.6 C Pulse Rate Respiratory Rate 14 Blood Pressure Pulse Oximetry 93 97 Oxygen Delivery 09/21/24 12:17 09/21/24 12:20 09/21/24 12:25 Temperature Pulse Rate Respiratory Rate Blood Pressure Pulse Oximetry 83 L 96 Oxygen Delivery Room Air 09/21/24 12:30 09/21/24 12:35 09/21/24 12:40 Temperature Pulse Rate Respiratory Rate Blood Pressure Pulse Oximetry 95 96 95 Oxygen Delivery 09/21/24 12:45 09/21/24 12:50 09/21/24 12:55 Temperature Pulse Rate Respiratory Rate Blood Pressure Pulse Oximetry 96 95 95 Oxygen Delivery 09/21/24 13:00 09/21/24 13:05 09/21/24 13:10 Temperature Pulse Rate 97 Respiratory Rate Blood Pressure 93/69 L Pulse Oximetry 95 94 94 Oxygen Delivery 09/21/24 13:15 09/21/24 13:20 09/21/24 13:25 Temperature Pulse Rate Respiratory Rate Blood Pressure Pulse Oximetry 94 94 95 Oxygen Delivery 09/21/24 13:30 09/21/24 13:35 09/21/24 13:40 Temperature Pulse Rate Respiratory Rate Blood Pressure Pulse Oximetry 95 88 L 94 Oxygen Delivery 09/21/24 13:45 09/21/24 13:50 09/21/24 13:55 Temperature Pulse Rate Respiratory Rate Blood Pressure Pulse Oximetry 95 95 97 Oxygen Delivery Exam Const: General: no acute distress HENMT: Mouth: Yes moist mucous membranes Eyes: General: appearance normal, both eyes and all related structures Sclera: sclerae normal Resp: Effort & Inspection: normal respiratory effort Cardio: Rate: regular rate Rhythm: regular rhythm Heart sounds: no murmurs Skin: General skin exam: normal color Neuro: Speech: normal speech Psych: Mental Status: mental status grossly normal Affect: normal affect Results Labs and Meds 09/21/24 00:34 09/21/24 00:34 Lab results: Cardiac Enzymes 09/21/24 Range/Units 00:34 AST 33 (14-36) U/L Troponin I < 0.012 (0.000-0.034) ng/mL Coagulation 09/21/24 Range/Units 00:34 PT 13.2 (11.1-14.7) Seconds APTT 30.8 (22.3-36.8) Seconds CBC 09/21/24 Range/Units 00:34 WBC 11.1 H (4.5-10.0) K/mm3 RBC 3.25 L (4.2-5.4) M/mm3 Hgb 9.8 L (12.0-15.0) g/dL Hct 31.8 L (37.0-47.0) % Plt Count 328 (150-375) k/mm3 Lymph # (Auto) 2.75 (0.9-3.2) K/mm3 Saline # (Auto) 0.5 (0.1-0.6) K/mm3 Eos # (Auto) 0.4 H (0-0.3) K/mm3 Baso # (Auto) 0.1 (0.0-0.1) K/mm3 Comprehensive Metabolic Panel 09/21/24 Range/Units 00:34 Sodium 136 L (137-145) mmol/L Potassium 4.2 (3.4-5.0) mmol/L Chloride 103 (98-107) mmol/L Carbon Dioxide 27 (22-30) mmol/L BUN 18 H (7-17) mg/dL Creatinine 0.95 (0.7-1.0) mg/dL Glucose 96 (65-110) mg/dL Calcium 8.9 (8.4-10.2) mg/dL AST 33 (14-36) U/L ALT 24 (6-35) U/L Alkaline Phosphatase 81 (38-126) U/L Total Protein 6.0 L (6.3-8.2) g/dL Albumin 3.2 L (3.5-5.1) g/dL Intake and Output 09/20/24 09/21/24 09/21/24 23:59 07:59 15:59 Intake Total 100 1150 Output Total 1000 1700 Balance -900 -550 Intake: IV 550 Magnesium Sulf 20Gm/Sxpml807tc 500 500 ml @ 50 mls/hr IV CONT . Q10H [facility] Rx#:[id number] ceFAZolin 1 GM/NS 50 ML 1 gm In 50 50 ml @ 100 mls/hr IVPB Q8H [facility] Rx#:[id number] Oral 100 600 Output: Urine 1000 1700 Patient Weight 09/21/24 23:59 Weight 118 kg
[2024-09-21 15:07] LABS: Troponin I < 0.012 ng/mL (0.000-0.034)
[2024-09-21] MEDS: LANOLIN (LANSINOH) 7.5 GM CREAM 1 APPLIC (15:30)
[2024-09-21] MEDS: ACETAMINOPHEN/BUTALBITAL/CAFFEINE 325-50-40 MG TABLET (FIORICET) 1 TAB PO ×2 (16:36→23:08)
--- NOTE | 2024-09-21 17:52 | PC.NURSE ---
1700 Patient's fiance is here with their baby, mother is in bed and holding baby.
[2024-09-22] VITALS (159 sets, daily range): BP systolic 130–167; BP diastolic 68–107; PULSE 76–116; RESP 16–18; TEMP 36.6–37.3; O2SAT 90–100
[2024-09-22] MEDS: IBUPROFEN 600 MG TABLET PO ×2 (00:05→11:23)
[2024-09-22] MEDS: busPIRone HCL 10 MG TABLET PO ×3 (01:02→17:13)
[2024-09-22] MEDS: ceFAZolin 1 GM/NS 50 ML 1 GM/50 ML BAG IVPB ×2 (01:03→09:12)
[2024-09-22] MEDS: HYDROcodone/acetaminophen (*CRX) 5-325 MG TABLET 1 TAB PO ×3 (01:10→20:24)
[2024-09-22] MEDS: ACETAMINOPHEN/BUTALBITAL/CAFFEINE 325-50-40 MG TABLET (FIORICET) 1 TAB PO (03:12)
[2024-09-22 07:37] LABS: Basophils Percent Auto 0.4 % (0.2-1.2); Eosinophils Absolute Auto 0.4 K/mm3 (0-0.3); Eosinophils Percent Auto 3.5 % (0-4.4); Hematocrit 30.5 % (37.0-47.0); Hemoglobin 9.4 g/dL (12.0-15.0); Immature Granulocyte Absolute 0.07 K/mm3 (0.00-0.031); Immature Granulocyte Percent A 0.7 % (0-0.5); Lymphocytes Absolute Auto 2.65 K/mm3 (0.9-3.2); Lymphocytes Percent Auto 26.8 % (18.3-44.2); Mean Corpuscular HGB Conc 30.8 g/dl (32-36); Mean Corpuscular Hemoglobin 30.1 pg (26-34); Mean Corpuscular Volume 97.8 fl (80-100); Mean Platelet Volume 8.8 fl (7.4-10.4); Monocytes Absolute Auto 0.5 K/mm3 (0.1-0.6); Neutrophils Absolute Auto 6.3 K/mm3 (1.3-6.7); Neutrophils Percent Auto 63.6 % (45.5-73.1); Platelet Count Result 340 k/mm3 (150-375); Red Blood Count 3.12 M/mm3 (4.2-5.4); Red Cell Distribution Width 13.9 % (11.5-14.5); White Blood Count 9.9 K/mm3 (4.5-10.0)
[2024-09-22 07:47] LABS: Anion Gap 4 mmol/L (4-12); Blood Urea Nitrogen 16 mg/dL (7-17); Calcium 6.2 mg/dL (8.4-10.2); Carbon Dioxide 29 mmol/L (22-30); Chloride 103 mmol/L (98-107); Estimated CRCL calculation 98 ml/min; Estimated Glomerular Filt Rate > 60; Glucose 85 mg/dL (65-110); Potassium 4.2 mmol/L (3.4-5.0); Sodium 136 mmol/L (137-145)
[2024-09-22] MEDS: FAMOTIDINE 20 MG TABLET PO ×2 (10:04→22:04)
[2024-09-22] MEDS: NIFEdipine 30 MG TAB.ER.24 PO (10:04)
--- NOTE | 2024-09-22 11:00 | PC.NURSE ---
0925--Dr. Powell at bedside. Plan of care discussed.
--- NOTE | 2024-09-22 12:37 | P.PNOB_ITS ---
OB - PN: Subj Subjective Date/time seen: 09/22/24 12:37 Interval history: She states headache is better. She has upper congestion symptoms, decline antihistamine. Denies scotomata or RUQ pain. Denies chest pain OB - PN: Obj Data Labs 09/22/24 04:20 09/22/24 04:20 Labs: Laboratory Results - last 24 hr 09/21/24 09/22/24 14:39 04:20 WBC 9.9 RBC 3.12 L Hgb 9.4 L Hct 30.5 L MCV 97.8 MCH 30.1 MCHC 30.8 L RDW 13.9 Plt Count 340 MPV 8.8 Immature Gran % (Auto) 0.7 H Neut % (Auto) 63.6 Lymph % (Auto) 26.8 [place] % (Auto) 5.0 Eos % (Auto) 3.5 Baso % (Auto) 0.4 Lymph # (Auto) 2.65 [place] # (Auto) 0.5 Eos # (Auto) 0.4 H Baso # (Auto) 0.0 Abs Immat Gran (auto) 0.07 H Absolute Neuts (auto) 6.3 Absolute Nucleated RBC 0.000 Nucleated RBC % 0.0 Sodium 136 L Potassium 4.2 Chloride 103 Carbon Dioxide 29 Anion Gap 4 BUN 16 Creatinine 0.89 Estim Creat Clear Calc 98 Estimated GFR > 60 Glucose 85 Calcium 6.2 L Troponin I < 0.012 OB - PN A/P Assessment and Plan (1) Pre-eclampsia: Qualifiers: Trimester: unspecified trimester Qualified Code(s): O14.90 - Unspecified pre-eclampsia, unspecified trimester Code(s): O14.90 - Unspecified pre-eclampsia, unspecified trimester Status: Acute Assessment and Plan: Magnesium discontinued at 24 hour. Labile elevated blood pressure. Will add Procardia and monitor blood pressure. (2) UTI (urinary tract infection): Code(s): N39.0 - Urinary tract infection, site not specified Status: Acute Assessment and Plan: Urine culture isolated showed low single gram positive growth. She has had multiple doses of Ancef. Will discontinue Ancef. (3) Chest pain: Code(s): R07.9 - Chest pain, unspecified Status: Acute Assessment and Plan: Resolved. Cardiology consult was appreciated. Echo results prelim no concerning findings, awaiting final from Cardiology service. Time Spent With Patient Time: Total time spent is greater than 50% in coordination of care (as documented) at patient's floor/unit and/or counseling patient: Exam 2 Const: General: comfortable and no acute distress O rientation/consciousness: oriented to person, oriented to place and oriented to time Resp: Effort & Inspection: normal respiratory effort GI: Other: fundus firm nontender Extrem: General: no calf tenderness
--- NOTE | 2024-09-22 15:05 | PC.NURSE ---
1500--Cardiology at bedside to discuss ECHO results and plan of care.
--- NOTE | 2024-09-22 15:11 | PM.PNCARD ---
Progress Note: A&P Assessment and Plan (1) Chest pain: Code(s): R07.9 - Chest pain, unspecified Status: Acute Assessment and Plan: Troponins are negative. EKG without ischemic changes. Echocardiogram with normal LVEF, no appreciable wall motion abnormalities. Echo unremarkable. No additional cardiac evaluation recommended at this time. Okay for discharge from a cardiac standpoint. Subjective Date/time seen: 09/22/24 15:11 Interval history: Reason for visit: Chest pain HPI: We are consulted for chest pain. This is a 34 year old female who is post-op day 5 from a who presented due to chest pain. Chest pain is sharp, left anterior with radiation to left arm. Started having chest pain after hearing news of her grandmother's . She is currently being treated for pre-eclampsia. Troponin is negative. NT pro BNP is 132. CXR is normal. EKG shows sinus tachycardia, possible left atrial enlargement, no ischemic changes. Chest pain did get worse with inspiration. Date of service 09/22: Feeling better. No chest pain. Review of Systems Cardiovascular: Cardiovascular: Reports as per HPI Exam Const: General: comfortable and no acute distress HENMT: Mouth: Yes moist mucous membranes Eyes: General: appearance normal, both eyes and all related structures Sclera: sclerae normal Resp: Effort & Inspection: normal respiratory effort Cardio: Rate: regular rate Rhythm: regular rhythm Neuro: Speech: normal speech Psych: Mental Status: mental status grossly normal Affect: normal affect Objective Data Vital Signs Vital Signs: Vital Signs - 24 hr 09/21/24 15:22 09/21/24 15:23 09/21/24 15:25 Temperature Pulse Rate 99 Respiratory Rate Blood Pressure 124/77 Pulse Oximetry 99 100 Oxygen Delivery 09/21/24 15:50 09/21/24 15:55 09/21/24 16:00 Temperature Pulse Rate Respiratory Rate Blood Pressure Pulse Oximetry 95 95 94 Oxygen Delivery 09/21/24 16:05 09/21/24 16:10 09/21/24 16:15 Temperature Pulse Rate Respiratory Rate Blood Pressure Pulse Oximetry 95 91 96 Oxygen Delivery 09/21/24 16:17 09/21/24 16:17 09/21/24 16:20 Temperature 36.4 C Pulse Rate Respiratory Rate 16 Blood Pressure Pulse Oximetry 95 Oxygen Delivery Room Air 09/21/24 16:25 09/21/24 16:30 04/08/25 16:35 Temperature Pulse Rate Respiratory Rate Blood Pressure Pulse Oximetry 94 95 95 Oxygen Delivery 09/21/24 16:40 09/21/24 16:48 09/21/24 16:53 Temperature Pulse Rate Respiratory Rate Blood Pressure Pulse Oximetry 98 98 98 Oxygen Delivery 09/21/24 16:58 09/21/24 17:00 09/21/24 17:03 Temperature Pulse Rate 108 H Respiratory Rate Blood Pressure 133/83 Pulse Oximetry 98 98 Oxygen Delivery 09/21/24 17:08 09/21/24 17:13 09/21/24 17:18 Temperature Pulse Rate Respiratory Rate Blood Pressure Pulse Oximetry 98 98 100 Oxygen Delivery 09/21/24 17:23 09/21/24 17:28 09/21/24 17:33 Temperature Pulse Rate Respiratory Rate Blood Pressure Pulse Oximetry 97 97 97 Oxygen Delivery 09/21/24 17:38 09/21/24 17:43 09/21/24 17:48 Temperature Pulse Rate Respiratory Rate Blood Pressure Pulse Oximetry 97 97 97 Oxygen Delivery 09/21/24 17:53 09/21/24 17:58 09/21/24 18:03 Temperature Pulse Rate Respiratory Rate Blood Pressure Pulse Oximetry 96 97 97 Oxygen Delivery 09/21/24 18:08 09/21/24 18:13 09/21/24 18:18 Temperature Pulse Rate Respiratory Rate Blood Pressure Pulse Oximetry 96 93 92 Oxygen Delivery 09/21/24 18:23 09/21/24 18:28 09/21/24 18:36 Temperature Pulse Rate Respiratory Rate Blood Pressure Pulse Oximetry 94 95 98 Oxygen Delivery 09/21/24 18:41 09/21/24 18:46 09/21/24 18:51 Temperature Pulse Rate Respiratory Rate Blood Pressure Pulse Oximetry 97 97 98 Oxygen Delivery 09/21/24 18:56 09/21/24 19:00 09/21/24 19:01 Temperature Pulse Rate 98 Respiratory Rate Blood Pressure 141/78 H Pulse Oximetry 99 98 Oxygen Delivery 09/21/24 19:04 09/21/24 19:04 09/21/24 19:06 Temperature 37.2 C 37.2 C Pulse Rate 105 H Respiratory Rate 16 Blood Pressure 141/78 H Pulse Oximetry 98 97 Oxygen Delivery 09/21/24 19:11 09/21/24 19:16 09/21/24 19:21 Temperature Pulse Rate Respiratory Rate Blood Pressure Pulse Oximetry 96 98 99 Oxygen Delivery 09/21/24 19:26 09/21/24 19:31 09/21/24 19:36 Temperature Pulse Rate Respiratory Rate Blood Pressure Pulse Oximetry 98 98 98 Oxygen Delivery 09/21/24 19:41 09/21/24 19:46 09/21/24 19:51 Temperature Pulse Rate Respiratory Rate Blood Pressure Pulse Oximetry 98 97 98 Oxygen Delivery 09/21/24 19:56 09/21/24 20:01 09/21/24 20:06 Temperature Pulse Rate Respiratory Rate Blood Pressure Pulse Oximetry 96 97 95 Oxygen Delivery 09/21/24 20:11 09/21/24 20:16 09/21/24 20:21 Temperature Pulse Rate Respiratory Rate Blood Pressure Pulse Oximetry 96 95 95 Oxygen Delivery 09/21/24 20:26 09/21/24 20:31 09/21/24 20:36 Temperature Pulse Rate Respiratory Rate Blood Pressure Pulse Oximetry 95 94 93 Oxygen Delivery 09/21/24 20:41 09/21/24 20:46 09/21/24 20:48 Temperature Pulse Rate 87 Respiratory Rate Blood Pressure 132/80 Pulse Oximetry 96 97 Oxygen Delivery 09/21/24 20:48 09/21/24 20:51 09/21/24 20:56 Temperature 37.2 C Pulse Rate 83 Respiratory Rate 16 Blood Pressure 132/80 Pulse Oximetry 95 95 95 Oxygen Delivery 09/21/24 21:00 09/21/24 21:01 09/21/24 21:06 Temperature Pulse Rate 87 Respiratory Rate Blood Pressure 137/85 Pulse Oximetry 95 94 Oxygen Delivery 09/21/24 21:11 09/21/24 21:15 09/21/24 21:15 Temperature 36.6 C 36.6 C Pulse Rate 89 Respiratory Rate 18 Blood Pressure 137/85 Pulse Oximetry 95 95 Oxygen Delivery 09/21/24 21:16 09/21/24 21:21 09/21/24 21:30 Temperature Pulse Rate Respiratory Rate Blood Pressure Pulse Oximetry 98 97 99 Oxygen Delivery 09/21/24 21:35 09/21/24 21:40 09/21/24 21:45 Temperature Pulse Rate Respiratory Rate Blood Pressure Pulse Oximetry 99 98 99 Oxygen Delivery 09/21/24 21:50 09/21/24 21:55 09/21/24 22:00 Temperature Pulse Rate Respiratory Rate Blood Pressure Pulse Oximetry 99 97 98 Oxygen Delivery 09/21/24 22:05 09/21/24 22:10 09/21/24 22:15 Temperature Pulse Rate Respiratory Rate Blood Pressure Pulse Oximetry 98 100 99 Oxygen Delivery 09/21/24 22:20 09/21/24 22:25 09/21/24 22:30 Temperature Pulse Rate Respiratory Rate Blood Pressure Pulse Oximetry 99 100 98 Oxygen Delivery 09/21/24 22:35 09/21/24 22:40 09/21/24 22:45 Temperature Pulse Rate Respiratory Rate Blood Pressure Pulse Oximetry 100 97 100 Oxygen Delivery 09/21/24 22:51 09/21/24 22:56 09/21/24 23:00 Temperature Pulse Rate 93 Respiratory Rate Blood Pressure 133/86 Pulse Oximetry 96 97 Oxygen Delivery 09/21/24 23:00 09/21/24 23:01 09/21/24 23:06 Temperature 36.8 C Pulse Rate 93 Respiratory Rate 18 Blood Pressure 133/86 Pulse Oximetry 98 98 97 Oxygen Delivery 09/21/24 23:11 09/21/24 23:19 09/21/24 23:24 Temperature Pulse Rate Respiratory Rate Blood Pressure Pulse Oximetry 100 95 96 Oxygen Delivery 09/21/24 23:29 09/21/24 23:30 09/21/24 23:34 Temperature Pulse Rate Respiratory Rate Blood Pressure Pulse Oximetry 95 96 Oxygen Delivery Room Air 09/21/24 23:39 09/21/24 23:44 09/21/24 23:49 Temperature Pulse Rate Respiratory Rate Blood Pressure Pulse Oximetry 94 95 96 Oxygen Delivery 09/21/24 23:54 09/21/24 23:54 09/21/24 23:59 Temperature Pulse Rate 88 87 Respiratory Rate 18 Blood Pressure 128/82 128/82 Pulse Oximetry 96 95 94 Oxygen Delivery 09/22/24 00:04 09/22/24 00:09 09/22/24 00:14 Temperature Pulse Rate Respiratory Rate Blood Pressure Pulse Oximetry 94 94 94 Oxygen Delivery 09/22/24 00:19 09/22/24 00:24 09/22/24 00:29 Temperature Pulse Rate Respiratory Rate Blood Pressure Pulse Oximetry 94 95 94 Oxygen Delivery 09/22/24 00:34 09/22/24 00:39 09/22/24 00:44 Temperature Pulse Rate Respiratory Rate Blood Pressure Pulse Oximetry 95 95 95 Oxygen Delivery 09/22/24 00:49 09/22/24 00:54 09/22/24 00:59 Temperature Pulse Rate Respiratory Rate Blood Pressure Pulse Oximetry 95 96 95 Oxygen Delivery 09/22/24 01:00 09/22/24 01:00 09/22/24 01:04 Temperature 36.6 C Pulse Rate 93 93 Respiratory Rate 16 Blood Pressure 131/83 131/83 Pulse Oximetry 95 100 Oxygen Delivery 09/22/24 01:09 09/22/24 01:14 09/22/24 01:19 Temperature Pulse Rate Respiratory Rate Blood Pressure Pulse Oximetry 96 100 96 Oxygen Delivery 09/22/24 01:24 09/22/24 01:29 09/22/24 01:34 Temperature Pulse Rate Respiratory Rate Blood Pressure Pulse Oximetry 96 96 96 Oxygen Delivery 09/22/24 01:39 09/22/24 01:44 09/22/24 01:49 Temperature Pulse Rate Respiratory Rate Blood Pressure Pulse Oximetry 96 99 97 Oxygen Delivery 09/22/24 01:58 09/22/24 02:03 09/22/24 02:08 Temperature Pulse Rate Respiratory Rate Blood Pressure Pulse Oximetry 99 100 99 Oxygen Delivery 09/22/24 02:13 09/22/24 02:18 09/22/24 02:23 Temperature Pulse Rate Respiratory Rate Blood Pressure Pulse Oximetry 99 100 100 Oxygen Delivery 09/22/24 02:28 09/22/24 02:33 09/22/24 02:38 Temperature Pulse Rate Respiratory Rate Blood Pressure Pulse Oximetry 99 100 100 Oxygen Delivery 09/22/24 02:43 09/22/24 02:48 09/22/24 02:53 Temperature Pulse Rate Respiratory Rate Blood Pressure Pulse Oximetry 99 100 98 Oxygen Delivery 09/22/24 02:58 09/22/24 03:00 09/22/24 03:00 Temperature 36.6 C Pulse Rate 90 90 Respiratory Rate 18 Blood Pressure 141/78 H 141/78 H Pulse Oximetry 98 99 Oxygen Delivery 09/22/24 03:03 09/22/24 03:07 09/22/24 03:07 Temperature Pulse Rate 86 86 Respiratory Rate Blood Pressure 132/82 132/82 Pulse Oximetry 99 98 Oxygen Delivery 09/22/24 03:08 09/22/24 03:13 09/22/24 03:18 Temperature Pulse Rate Respiratory Rate Blood Pressure Pulse Oximetry 98 99 97 Oxygen Delivery 09/22/24 03:23 09/22/24 03:28 09/22/24 03:33 Temperature Pulse Rate Respiratory Rate Blood Pressure Pulse Oximetry 97 97 95 Oxygen Delivery 09/22/24 03:38 09/22/24 03:43 09/22/24 03:48 Temperature Pulse Rate Respiratory Rate Blood Pressure Pulse Oximetry 95 96 95 Oxygen Delivery 09/22/24 03:53 09/22/24 03:58 09/22/24 04:03 Temperature Pulse Rate Respiratory Rate Blood Pressure Pulse Oximetry 95 95 94 Oxygen Delivery 09/22/24 04:08 09/22/24 04:13 09/22/24 04:18 Temperature Pulse Rate Respiratory Rate Blood Pressure Pulse Oximetry 94 93 90 Oxygen Delivery 09/22/24 04:23 09/22/24 04:28 09/22/24 04:33 Temperature Pulse Rate Respiratory Rate Blood Pressure Pulse Oximetry 97 99 93 Oxygen Delivery 09/22/24 04:38 09/22/24 04:43 09/22/24 04:48 Temperature Pulse Rate Respiratory Rate Blood Pressure Pulse Oximetry 95 96 96 Oxygen Delivery 09/22/24 04:53 09/22/24 05:03 09/22/24 05:04 Temperature Pulse Rate 81 Respiratory Rate Blood Pressure 153/93 H Pulse Oximetry 98 100 Oxygen Delivery 09/22/24 05:04 09/22/24 05:08 09/22/24 05:13 Temperature 36.6 C Pulse Rate Respiratory Rate Blood Pressure Pulse Oximetry 98 98 Oxygen Delivery 09/22/24 05:18 09/22/24 05:23 09/22/24 05:28 Temperature Pulse Rate Respiratory Rate Blood Pressure Pulse Oximetry 97 97 97 Oxygen Delivery 09/22/24 05:33 09/22/24 05:38 09/22/24 05:43 Temperature Pulse Rate Respiratory Rate Blood Pressure Pulse Oximetry 99 100 98 Oxygen Delivery 09/22/24 05:48 09/22/24 05:53 09/22/24 05:58 Temperature Pulse Rate Respiratory Rate Blood Pressure Pulse Oximetry 98 99 100 Oxygen Delivery 09/22/24 06:03 09/22/24 06:08 09/22/24 06:13 Temperature Pulse Rate Respiratory Rate Blood Pressure Pulse Oximetry 99 99 99 Oxygen Delivery 09/22/24 06:18 09/22/24 06:23 09/22/24 06:28 Temperature Pulse Rate Respiratory Rate Blood Pressure Pulse Oximetry 98 99 99 Oxygen Delivery 09/22/24 06:33 09/22/24 06:38 09/22/24 06:43 Temperature Pulse Rate Respiratory Rate Blood Pressure Pulse Oximetry 98 98 97 Oxygen Delivery 09/22/24 06:48 09/22/24 06:53 09/22/24 06:58 Temperature Pulse Rate Respiratory Rate Blood Pressure Pulse Oximetry 97 98 97 Oxygen Delivery 09/22/24 07:00 09/22/24 07:03 09/22/24 07:08 Temperature Pulse Rate 91 Respiratory Rate Blood Pressure 149/89 H Pulse Oximetry 98 97 Oxygen Delivery 09/22/24 07:13 09/22/24 07:18 09/22/24 07:23 Temperature Pulse Rate Respiratory Rate Blood Pressure Pulse Oximetry 97 98 98 Oxygen Delivery 09/22/24 07:28 09/22/24 07:30 09/22/24 08:55 Temperature Pulse Rate 86 Respiratory Rate Blood Pressure 148/85 H Pulse Oximetry 100 98 Oxygen Delivery 09/22/24 08:56 09/22/24 09:00 09/22/24 09:05 Temperature Pulse Rate 98 94 Respiratory Rate Blood Pressure 158/107 H 153/93 H Pulse Oximetry 97 98 Oxygen Delivery 09/22/24 09:05 09/22/24 09:10 09/22/24 09:15 Temperature Pulse Rate Respiratory Rate Blood Pressure Pulse Oximetry 97 99 96 Oxygen Delivery 09/22/24 09:18 09/22/24 09:23 09/22/24 09:28 Temperature Pulse Rate Respiratory Rate Blood Pressure Pulse Oximetry 97 97 96 Oxygen Delivery 09/22/24 09:30 09/22/24 09:33 09/22/24 09:38 Temperature Pulse Rate 90 Respiratory Rate Blood Pressure 140/84 Pulse Oximetry 96 98 Oxygen Delivery 09/22/24 09:43 09/22/24 09:48 09/22/24 09:53 Temperature Pulse Rate Respiratory Rate Blood Pressure Pulse Oximetry 97 99 100 Oxygen Delivery 09/22/24 09:58 09/22/24 10:00 09/22/24 10:03 Temperature Pulse Rate 90 Respiratory Rate Blood Pressure 143/84 H Pulse Oximetry 99 97 Oxygen Delivery 09/22/24 11:18 09/22/24 11:19 09/22/24 11:23 Temperature Pulse Rate 91 Respiratory Rate Blood Pressure 167/102 H Pulse Oximetry 98 98 Oxygen Delivery 09/22/24 11:28 09/22/24 11:30 09/22/24 11:33 Temperature Pulse Rate 90 Respiratory Rate Blood Pressure 158/100 H Pulse Oximetry 97 98 Oxygen Delivery 09/22/24 11:38 09/22/24 11:43 09/22/24 11:48 Temperature Pulse Rate Respiratory Rate Blood Pressure Pulse Oximetry 98 98 98 Oxygen Delivery 09/22/24 11:53 09/22/24 11:58 09/22/24 12:00 Temperature Pulse Rate 85 Respiratory Rate Blood Pressure 152/91 H Pulse Oximetry 97 98 Oxygen Delivery 09/22/24 12:03 09/22/24 12:08 09/22/24 12:13 Temperature Pulse Rate Respiratory Rate Blood Pressure Pulse Oximetry 98 99 97 Oxygen Delivery 09/22/24 12:18 09/22/24 12:23 09/22/24 12:28 Temperature Pulse Rate Respiratory Rate Blood Pressure Pulse Oximetry 98 98 98 Oxygen Delivery 09/22/24 12:33 09/22/24 12:38 09/22/24 12:43 Temperature Pulse Rate Respiratory Rate Blood Pressure Pulse Oximetry 98 98 98 Oxygen Delivery 09/22/24 12:48 09/22/24 12:53 09/22/24 12:58 Temperature Pulse Rate Respiratory Rate Blood Pressure Pulse Oximetry 97 97 97 Oxygen Delivery 09/22/24 13:01 09/22/24 13:03 09/22/24 13:08 Temperature Pulse Rate 90 Respiratory Rate Blood Pressure 135/80 Pulse Oximetry 96 96 Oxygen Delivery 09/22/24 13:13 09/22/24 13:18 09/22/24 13:23 Temperature Pulse Rate Respiratory Rate Blood Pressure Pulse Oximetry 96 96 95 Oxygen Delivery 09/22/24 13:28 09/22/24 13:33 09/22/24 13:38 Temperature Pulse Rate Respiratory Rate Blood Pressure Pulse Oximetry 98 97 97 Oxygen Delivery 09/22/24 13:43 09/22/24 13:48 09/22/24 13:53 Temperature Pulse Rate Respiratory Rate Blood Pressure Pulse Oximetry 95 97 96 Oxygen Delivery 09/22/24 14:35 Temperature Pulse Rate 106 H Respiratory Rate Blood Pressure 157/90 H Pulse Oximetry 97 Oxygen Delivery Intake/Output Intake/Output: Intake & Output 09/19/24 09/20/24 09/21/24 04/09/25 23:59 23:59 23:59 23:59 Intake Total 4965 1275 Output Total 6967 1936 [id number] -[id number] Meds/Results Medications: Active Medications Generic Name Dose Route Start Last Admin Trade Name Freq PRN Reason Stop Dose Admin Acetaminophen 650 mg 09/21/24 02:35 Acetaminophen 325 Mg Tablet PO Q4H PRN Mild Pain (1-3) or Fever Acetaminophen/Butalbital/Caffeine 1 tab 09/21/24 16:02 09/22/24 03:12 Acetaminophen/Butalbital/Caffeine 325-50-40 Mg Tablet (Fioricet) PO 1 tab Q4H PRN Administration Pain Rated 4-6 Hydrocodone Bitart/Acetaminophen 1 tab 09/21/24 03:49 09/22/24 07:22 Hydrocodone/Acetaminophen (*Crx) 5-325 Mg Tablet PO 1 tab Q4H PRN Administration Pain Rated 4-6 Buspirone HCl 10 mg 09/21/24 08:15 09/22/24 09:12 Buspirone Hcl 10 Mg Tablet PO 10 mg Q8HR AWAIS Administration Cephalexin HCl 500 mg 09/22/24 14:00 Cephalexin 500 Mg Capsule PO Q8HR AWAIS Cyclobenzaprine HCl 10 mg 09/21/24 08:15 09/21/24 08:45 Cyclobenzaprine Hcl 10 Mg Tablet PO 10 mg Q8HR AWAIS Administration Docusate Sodium 100 mg 09/22/24 12:52 Docusate Sodium 100 Mg Capsule PO Q12H PRN Constipation Famotidine 20 mg 09/21/24 09:00 09/22/24 10:04 Famotidine 20 Mg Tablet PO 20 mg Q12HR AWAIS Administration Ferrous Sulfate 325 mg 09/22/24 17:00 Ferrous Sulfate [address] PO BID AWAIS Lactated Ringer's 1,000 mls @ 75 mls/hr 09/21/24 03:45 09/21/24 16:38 Lr - Lactated Ringers Iv IV CONT 75 mls/hr .[id number] AWAIS Administration Ibuprofen 600 mg 09/21/24 03:42 09/22/24 11:23 Ibuprofen 600 Mg Tablet PO 600 mg Q6H PRN Administration Cramping Nifedipine 30 mg 09/23/24 09:00 04/09/25 10:04 Nifedipine 30 Mg Tab.Er.24 PO 30 mg QAM AWAIS Administration Perflutren Lipid Microsphere 0 ml 09/21/24 10:13 Perflutren Lipid Microspheres 1.5 Ml Vial Diluted To 10 Ml Total Volume IV PUSH 09/24/24 10:13 ONCE PRN adequate visualization Protocol Radiology Results: ITS Impressions Chest X-Ray 09/21/24 06:12 Impression: Normal chest. Labs Labs: Laboratory Results - last 24 hr 09/22/24 04:20 WBC 9.9 RBC 3.12 L Hgb 9.4 L Hct 30.5 L MCV 97.8 MCH 30.1 MCHC 30.8 L RDW 13.9 Plt Count 340 MPV 8.8 Immature Gran % (Auto) 0.7 H Neut % (Auto) 63.6 Lymph % (Auto) 26.8 [place] % (Auto) 5.0 Eos % (Auto) 3.5 Baso % (Auto) 0.4 Lymph # (Auto) 2.65 [place] # (Auto) 0.5 Eos # (Auto) 0.4 H Baso # (Auto) 0.0 Abs Immat Gran (auto) 0.07 H Absolute Neuts (auto) 6.3 Absolute Nucleated RBC 0.000 Nucleated RBC % 0.0 Sodium 136 L Potassium 4.2 Chloride 103 Carbon Dioxide 29 Anion Gap 4 BUN 16 Creatinine 0.89 Estim Creat Clear Calc 98 Estimated GFR > 60 Glucose 85 Calcium 6.2 L
[2024-09-22] MEDS: FERROUS SULFATE 325 MG TABLET DR PO (17:13)
[2024-09-22] MEDS: DOCUSATE SODIUM 100 MG CAPSULE PO (17:49)
[2024-09-22] MEDS: LABETALOL HCL 100 MG TABLET 200 MG PO (17:49)
[2024-09-23] VITALS (9 sets, daily range): BP systolic 131–149; BP diastolic 71–89; PULSE 89–113; RESP 16; TEMP 36.1–37.2; O2SAT 97–99
[2024-09-23] MEDS: busPIRone HCL 10 MG TABLET PO ×2 (01:01→09:00)
[2024-09-23] MEDS: IBUPROFEN 600 MG TABLET PO (01:06)
[2024-09-23] MEDS: LABETALOL HCL 100 MG TABLET 200 MG PO (05:35)
--- NOTE | 2024-09-23 07:30 | PC.NURSE ---
Dr. Powell rounded on patient. Removed surgical dressing to a well approximated incision. Gave patient permission to use Neosporin ointment on and around the incision. Dr. Powell discussed that due to patient's anxiety she is at risk of post depression and encourages her to make appointment with Shelby the therapist that she gave pt. information on. Pt. states she still has the information and will make an appointment.
[2024-09-23] MEDS: DOCUSATE SODIUM 100 MG CAPSULE PO (09:00)
[2024-09-23] MEDS: FAMOTIDINE 20 MG TABLET PO (09:00)
[2024-09-23] MEDS: FERROUS SULFATE 325 MG TABLET DR PO (09:00)
[2024-09-23] MEDS: NIFEdipine 30 MG TAB.ER.24 PO (09:02)
--- NOTE | 2024-09-23 09:08 | PM.DS ---
DS: Admitting Diagnosis Discharge Date 09/23/24 Admitting Diagnosis Pre-eclampsia Anxiety Chest pain DS: Discharge Diagnosis Discharge Diagnosis (1) Preeclampsia in period: Code(s): O14.95 - Unspecified pre-eclampsia, complicating the puerperium Status: Acute (2) Chest pain: Code(s): R07.9 - Chest pain, unspecified Status: Acute (3) Anxiety: Code(s): F41.9 - Anxiety disorder, unspecified Status: Acute DS: Summary Hospital Course Reason for hospitalization: hypertension Hospital Course: She was admitted from ED after presenting with c/o headaches and acute bilateral feet swelling and chest pain. Her blood pressures were increased and she was treated for pre-eclampsia. Magnesium and antihypertensives started. Magnesium discontinued after 24 hours. She had cardiology consult. She had subsequent echo which did not have any concerning findings. Her blood pressures did improve from admission on Procardia and Labetolol. She was started on Buspar. She declined Zoloft due to it not working for her in the past. Blood pressures. Headache resolved with Fioricet. Anxiety improved also. She was initially started on Ancef for possible UTI. Ancef discontinued when culture results showed negative. She was discharged to home on 09/23. She was given PIH precautions and follow instructions. Status at Discharge Functional status at discharge: independent ambulation Time Spent with Patient Time attestation: Total time spent providing and/or coordinating discharge services: Exam Const: General: comfortable and no acute distress Eyes: General: appearance normal, both eyes and all related structures Resp: Effort & Inspection: normal respiratory effort Auscultation: clear to auscultation bilaterally Cardio: Rate: regular rate Rhythm: regular rhythm GI: Other: incision intact Neuro: General: oriented to person, oriented to place and oriented to time Extrem: General: normal to inspection and no calf tenderness Discharge Plan Discharge Attending physician on discharge: Jaydon Powell Consulting providers: Jorge Herrera; Orlando Pang; Jc Chopra; Terence Franco Discharging Clinician: Jaydon Powell Anticipated Discharge Date/Time: 09/23/24 09:01 Patient Disposition: Home Activity: no straining, may drive after 2 weeks and pelvic rest Diet: regular Wound Care Instructions: incision open to air Discharge Instructions: Education: Warning signs of preeclampsia handout given Follow-Up: Call your delivering provider's office for an appointment to be seen in: 1 Week BREAST CARE: * Wear a snug supportive bra. * For engorgement discomfort: Breast Feeding: * Apply warm moist washcloths * Express milk as needed to relieve engorgement * Wear loose clothing * For sore nipples: * Identify correct latch-on * Apply warm moist washcloths before and after nursing * Air dry nipples after nursing * May apply Lansinoh cream to nipples ABDOMINAL INCISION: (if applicable) * Allow incision to air dry * Do NOT use lotions for powders on your incision * When showering, allow soap and water to run over the incision, but do not wash incision EPISIOTOMY/PERINEAL CARE: * Until bleeding stops, use your blue bottle after urinating * Change your pad frequently throughout the day * You may take sitz baths several times a day (fill your bathtub with warm water and soak for 20 minutes.) Do NOT bathe in the water * No tub baths until seen by your physician - You may shower ACTIVITY: * Rest as much as possible. * Do not exercise or lift anything heavier than your baby (such as laundry or other children.) * Avoid stairs or driving as much as possible. * Do not put anything into the vagina. No douching, tampons, or sexual activity until seen by physician. NOTIFY PHYSICIAN IF YOU HAVE ANY QUESTIONS OR IF ANY OF THE FOLLOWING SYMPTOMS OCCUR: * If your episiotomy or incision becomes red, swollen, or more painful than what you have experienced in the hospital. * If your vaginal bleeding becomes foul smelling. * If your vaginal bleeding becomes more heavy than a period or if your bleeding changes from pink to bright red. However, you may pass an occasional walnut-sized clot once or twice for the first week . * If you experience a sharp, shooting pain in you calves. * If you discover a hard, reddened area on your breast or if you experience flu-like symptoms. DIET: * Eat regular, well-balanced meals. * Drink plenty of fluids daily. If , drink to thirst. Patient Language: Swedish Stand Alone Forms: General Discharge Information Follow-up/Referrals: Jaydon Powell MD [Physician] - 1 Week (Call for appointment) Discharge Medications: New nifedipine [Procardia XL] 30 mg Tablet Extended Release 24hr 30 mg PO QAM Qty: 30 0RF buspirone 10 mg Tablet 10 mg PO BID Qty: 60 0RF labetalol 100 mg Tablet 200 mg PO Q12HR Qty: 60 0RF Continued ibuprofen 600 mg Tablet 600 mg PO Q6H Qty: 20 0RF Discontinued oseltamivir [Tamiflu] 75 mg capsule 75 mg PO Q12H No Action escitalopram oxalate [Lexapro] 5 mg tablet 5 mg PO DAILY Qty: 30 1RF medroxyprogesterone [Depo-Provera] 150 mg/mL suspension 150 mg IM [id number] Qty: 1 4RF Date of admission: 09/21/24 02:35 Primary Care Provider: UNKNOWN,DOCTOR Admitting Provider: Jane Roe Attending physician on admission: Jaydon Powell Condition: Serious
--- NOTE | 2024-09-23 10:01 | PC.NURSE ---
Pt. breast milk from second floor freezer returned to patient.
== END 2024-09-23 10:01 | disposition home or self-care (01) ==
LOC: ANHED 01:58 → ANHOBPP 03:51
PROVIDERS: Internal Medicine; Physician Assistant; Admitting Provider Obstetrics & Gynecology; Emergency Provider Preventive Medicine Aerospace Medicine; Visit Provider Obstetrics & Gynecology
DX: O14.95 Unspecified pre-eclampsia, complicating the puerperium (principal); O99.893 Other specified diseases and conditions complicating puerperium; R07.9 Chest pain, unspecified; O99.345 Other mental disorders complicating the puerperium; F41.9 Anxiety disorder, unspecified; O99.63 Diseases of the digestive system complicating the puerperium; K21.9 Gastro-esophageal reflux disease without esophagitis; Z63.4 Disappearance and death of family member; Z79.899 Other long term (current) drug therapy
CPT/HCPCS: 36415; 71046; 80048; 80053; 81001; 82570; 83690; 83880; 84156; 84484; 85025; 85610; 85730; 87086; 93005; 93306; 96365; 96366; 96367; 96375; 96376; 99285; A9270; G0378; G0379; J0690; J2270; J2405; J3475; J7120

== ENCOUNTER 2024-10-01 16:13 | Emergency (ER) | payer OTHER, SELFPAY ==
[2024-10-01] VITALS (9 sets, daily range): BP systolic 115–148; BP diastolic 69–95; PULSE 71–93; RESP 14–18; TEMP 36.7; O2SAT 97–100
--- NOTE | ~2024-10-01 | XR_ITS ---
XR chest 2V Ordering provider: Rory Hall MD History: 34 years Female with . chest pain . Comparison: September 21, 2024 FINDINGS: MEDIASTINUM: The cardiac silhouette is not enlarged. LUNGS: No infiltrates, effusions or pneumothorax. OTHER: No free air under the diaphragm. IMPRESSION: No acute cardiopulmonary pathology. Reviewed, dictated and finalized at location A.
--- NOTE | ~2024-10-01 | CT_ITS ---
CTA chest PE protocol Ordering provider: Amy Pinon PA-C History: 34 years Female with . cp, recent surgery . Comparison: None. Technique: CT angiogram chest was performed following timed intravenous injection of contrast. Thin s lice axial images and reformatted coronal images were obtained. Three dimensional reformatted images of the chest were also obtained using a [employer] workstation. . Automated exposure control and iterati ve reconstruction technique were employed. The dose-length product was 678.96 mGy-cm. 100 mL Omnipaqu e 350 was given IV. Findings: PULMONARY ARTERIES: No pulmonary embolus. VISUALIZED THORACIC INLET: Normal. MEDIASTINUM: Aorta/coronary arteries: The thoracic aorta is normal. Heart/other: The heart is not enlarged. Lymph nodes: No mediastinal or hilar adenopathy. LUNGS: No pulmonary nodules or masses. No infiltrates or effusions. No pneumothorax. VISUALIZED UPPER ABDOMEN: the visualized upper abdomen is normal. MUSCULOSKELETAL: Soft tissues: The superficial soft tissues are normal. Bones: Normal. Spine. IMPRESSION: 1. No pulmonary embolism. 2. No acute cardiopulmonary Reviewed, dictated and finalized at location A.
--- OUTSIDE RECORDS SUMMARY | 2024-10-01 16:16 | XMS_ITS | Encounter Summary ---
Author Organization [employer] Address [address] [place] [address] Care Team Providers Care Aoc Director Intelligence Officer Name Role Phone Soren Matr MD Primary Care Provider [phone] Encounter Details Date Type Department Care Team (Latest Contact Info) Description 07/19/2004 Outpatient Historical [facility], [place] [address] [place] [address] DEPRESSIVE DISORDER NEC (Primary Dx) Social History Tobacco Use Types Packs/Day Years Used Date Smoking Tobacco: Never Assessed Comments Unknown Sex and Gender Information Value Date Recorded Sex Assigned at Not on file Legal Sex Female 3:43 AM MANAGER PEDIATRIC Gender Identity Not on file Sexual Orientation Not on file documented as of this encounter Plan of Treatment Not on file documented as of this encounter Visit Diagnoses Diagnosis Depressive disorder, not elsewhere classified- Primary documented in this encounter Care Teams Aoc Director Intelligence Officer Relationship Specialty Start Date End Date Soren Mart MD PCP - General 02/10/09 documented as of this encounter
--- OUTSIDE RECORDS SUMMARY | 2024-10-01 16:16 | XMS_ITS | Encounter Summary ---
Author Organization [facility] Address [address] [place] [address] Phone Care Team Providers Care Payroll Services Analyst Name Role Phone Denny Norman MD Primary Care Provider [phone] Encounter Details Date Type Department Care Team (Late st Contact Info) Description 01/02/2023 Telephone [facility] [address] [place] [address] Provider, None [place] Social History Tobacco Use Types Packs/Day Years Used Date Smoking Tobacco: Never Assessed Comments Unknown Sex and Gender Information Value Date Recorded Sex Assigned at Female 07/09/2023 12:53 PM RETAIL BANKER Legal Sex Female 1:59 PM CDT Gender Identity Female 07/09/2023 12:53 PM RETAIL BANKER Sexual Orientation Straight 07/09/2023 12 :53 PM RETAIL BANKER documented as of this encounter Miscellaneous Notes [...] see someone other than physician, such as INJECTION OPERATOR, PA, resident? yes Patient reason for appointment/any current symptoms: establish care med refills Other information (including need for foundry supervisor): no documented in this encounter Plan of Treatment Not on file documented as of this encounter Visit Diagnoses Not on filedocumented in this encounter Care Teams Payroll Services Analyst Relationship Specialty Start Date End Date Denny Norman MD [address] [address] PCP - General Family Medicine 01/08/23 documented as of this encounter
--- OUTSIDE RECORDS SUMMARY | 2024-10-01 16:16 | XMS_ITS | Clinical Summary ---
Author Organization [facility] Address [address] [place] [address] Phone Care Team Providers Care Personal Support Worker Name Role Phone Denny Norman MD Primary Care Provider [phone] Allergies No known active allergies Medications prazosin [...] drink = 0.6 oz pur e alcohol) [employer] Utilities Answer Date Recorded In the past 12 months has [employer], [employer] in [place], oil, or water [employer] threatened to shut off services in your [...] week 11/20/2023 How often do you attend [facility] or anabaptist services? Patient declined 11/20/2023 Do you belong to any clubs o r organizations such as restorationism groups, unions, fraternal or athletic groups, or [...] care, and heating? Patient declined 11/20/2023 [facility] - Occupational Stress Questionnaire Answer Date [...] Sex Assigned at Female 07/09/2023 12:53 PM CAPTAIN/AIRLINE PILOT Legal Sex Female 1:59 PM CDT Gender Identity Female 07/09/2023 12:53 PM CAPTAIN/AIRLINE PILOT Sexual Orientation Straight 07/09/2023 12 :53 PM CAPTAIN/AIRLINE PILOT Last Filed Vital Signs Vital Sign Reading [...] exam with routine gynecological exam PATHOLOGY CYTOLOGY BRANCH SALES AND SERVICE REPRESENTATIVE Routine 02/21/2023 2:35 PM CDT Well woman exam with routine gynecological exam from Last 3 Months or Most Recently Relevant to Health Maintenance Results * HEPATITIS C ANTIBODY (02/24/2024 12:00 AM CDT) 02/24/2024 us Provider Scan CHEMISTRY ORDERABLES Final Resul t SCAN * PATHOLOGY CYTOLOGY BRANCH SALES AND SERVICE REPRESENTATIVE (02/21/2023 2:35 PM CDT) SPECIMEN ADEQUACY Satisfactory for evaluation. Endocervical/transf ormation zone component is present. 03/11/2023 3:22 PM CDT [facility] GENERAL CATEGORY EPITHELIAL CELL ABNORMALITY. 03/11/2023 3:22 PM CDT [facility] DESCRIPTIVE DIAGNOSIS ASCUS: Atypical squamous cells of undetermined significance. 03/11/2023 3:22 PM CDT [facility] at 1522 CDT OTHER FINDINGS Fungal organisms present, morphologically consistent with Ricarda species. 03/11/2023 3:22 PM CDT [facility] Automated Examination Analysis of this sample has been assisted by an automated imaging and review system ([employer] Imaging System, [employer], [place], [place]). This case is further evaluated and finalized by a fabric pattern grader and/or pathologist. 03/11/2023 3:22 PM CDT [facility] Disclaimer The PAP smear is a [...] unless clinically indicated. 03/11/2023 3:22 PM CDT [facility] Other CERVIX UTERI STRUCTURE / Unknown Non-Phlebotomy Collection / Unknown 02/21/2023 2:35 PM CDT 02/21/2023 2:35 PM CDT us Amelia Beard APRN, PARTNER MARKETING INTERN PATHOLOGY/CYTOLOGY ORDER ADAM Final Result Performing Organization Address City/State/[facility] Co de Phone Number [facility] [address] [place] [address], * (ABNORMAL) HUMAN PAPILLOMA VIRUS (HPV) (02/21/2023 2:35 PM CDT) HPV OTHER HIGH RISK TYPES, PCR POSITIVE(A) NEGATIVE 02/25/2023 7:37 AM CDT [facility] Comment: Positive for one or more of the following Other High HPV types: 31, 33, 35, 39, 45, 51, 52, 56, 58, 59, 66, and 68. False-positive results have been reported with molecular assays. If these positive results are discordant with clinical/cytohistologic findings, repeat testing may be considered after an appropriate interval. HPV TYPE 16 NEGATIVE NEGATIVE 02/25/2023 7:37 AM CDT [facility] Comment: A negative high-risk HPV result [...] 18 NEGATIVE NEGATIVE 02/25/2023 7:37 AM CDT [facility] Comment: A negative high-risk HPV result [...] OR DIAGNOSTIC SCREENING 02/25/2023 7:37 AM CDT [facility] Other Non-Phlebotomy Collection / Unknown 02/21/2023 2:35 PM CDT 02/21/2023 2:35 PM CDT Narrative [facility] - 02/25/2023 7:37 AM CDT Performed by Real-Time Polymerase Chain Reaction (PCR) on the Caryl Marcellus 4800. This assay has been validated for use with post-aliquot samples from the [employer] processor. us Amelia Beard APRN, PARTNER MARKETING INTERN LAB SEND OUTS Final Re sult [facility] [address] [place] [address], [place] from Last 3 Months or Most Recently Relevant to Health Maintenance Insurance MEDICAID [employer] Care Teams Personal Support Worker Relationship Specialty Start Date End Date Denny Norman MD [address] [address] PCP - General Family Medicine 01/08/23
--- OUTSIDE RECORDS SUMMARY | 2024-10-01 16:16 | XMS_ITS | Clinical Summary ---
Author Organization [facility] Address [address] [place] [address] Care Team Providers Care Residential Treatment Staff Name Role Phone Soren Mart MD Primary Care Provider [phone] Allergies No known active allergies Medications ondansetron (ZOFRAN ODT) 4 mg Tablet, Rapid DissolveIndication s:Nausea Place 1 tab on top of tongue and let dissolve every 8 hours prn nausea.. 32 Tablet 3 7 Active mometasone-formote rol (DULERA) 100-5 mcg/actuation inhaler LOT:[id number] EX:11/2017 QTY:1 BOX. 1 Gram 7 Active [...] Encounters Date Type Department Care Team Description 09/28/2024 External Device Data [facility] ABSTRACTION Provider, Abstract 09/01/2024 External Device Data [facility] ABSTRACTION Provider, Abstract 09/01/2024 External Device Data [facility] ABSTRACTION Provider, Abstract 08/21/2024 External Device Data [facility] ABSTRACTION Provider, Abstract 08/20/2024 External Device Data [facility] ABSTRACTION Provider, Abstract 08/18/2024 External Device Data [facility] ABSTRACTION Provider, Abstract 08/05/2024 9:07 AM EMAIL DESIGNER - 08/05/2024 11:59 PM EMAIL DESIGNER Hospital Encounter [facility] [address] [place] [address] Jaydon Chase MD Discharge Disposition: [...] on file Legal Sex Female 3:43 AM EMAIL DESIGNER Gender Identity Not on file Sexual [...] 113.4 kg (250 lb) 07/12/2020 4:03 PM EMAIL DESIGNER Height 162.6 cm (5' 4 ) 07/12/2020 4:03 PM EMAIL DESIGNER Body Mass Index 42.91 07/12/2020 4:03 PM EMAIL DESIGNER Plan of Treatment Health Maintenance Due Date Last Done Comments Preventative Visit-Managed Medicaid 11/27/2017 11/26/2016, 01/17/2016, 11/02/2015, Additional history exists HPV/Cotest (21-29) 11/01/2020 11/02/2015 HPV/Cotest (30-65) 2021 11/02/2015 DTAP/TDAP/TD VACCINES (10 - Td or Tdap) 09/25/2023 09/24/2013, 01/08/2010, 01/15/2006, Additional history exists INFLUENZA VACCINE (#1) 2024 9, 04/13/2016, 04/12/2016, Additional history exists CERVICAL CANCER SCREENING 02/21/2026 PAP SMEAR 02/21/2026 02/21/2023, 10/14, 02/11/2008 HEPATITIS B VACCINES Completed 08/17/1997, 08/17/1997, 03/09/1997, Additional history exists HPV VACCINES Completed 02/21/2009, 09/15, 08/04/2008 Procedures Procedure Name Priority Date/Time Associated Diagnosis Comments US OB FOLLOW UP PER FETUS Routine 08/05/2024 9:53 AM EMAIL DESIGNER Encounter for ultrasound to assess growth Obesity during , antepartum CERV/VAG CYTO SCREEN PAP RLFX HPV Routine 11/02/2015 12:00 AM CDT from Last 3 Months or Most Recently Relevant to Health Maintenance Results * US OB FOLLOW UP PER FETUS (08/05/2024 9:53 AM EMAIL DESIGNER) Anatomical Region Laterality Modality Pelvis Ultrasound 08/05/2024 9:32 AM EMAIL DESIGNER Narrative 08/05/2024 9:57 AM EMAIL DESIGNER STL FOLLOW UP ----- Pat. Name: ANNI BRYANT Study Date: 08/05/2024 9:32am Pat. NO: [id number] Referring MD: JAYDON CHASE MD Site: [facility] Assistant Installer: Bri Toledo RDMS : 1990 Age: 34 [...] Weeks of gestation O99.213: Obesity complicating Procedures 04837: Ultrasound, uterus, real time with image documentation, [...] 5 lb 8 oz EFW by Hadlock ([id number]) Head / Face / Neck Biometry: A/C Technician 5.3 mm Extremities / Bony Struc Biometry: [...] and date of were verified by the roto gravure press operator prior to the exam IMPRESSION ----- [...] Pat. Name:Eladia BRYANT Date:08/05/2024 9:32am Pat. NO: [id number] :JAYDON CHASE MD [facility]Bri Toledo RDMS :1990Age:34 ----- INDICATION ----- Maternal Care for Low Transverse Scar from Previous Delivery (Previous ) Maternal Obesity (BMI<40) Complicating Screening, Other Specified CODING ----- Diagnoses Z3A.33: Weeks of gestation Z36.89: Encounter to establish gestational ageusing ultrasound O99.213: Obesity complicating O34.211: Maternal care for low transverse scarfrom previous delivery Z36.3: Encounter for screening formalformations Z3A.33: Weeks of gestation O99.213: Obesity complicating Procedures 20846: Ultrasound, uterus, real time withimage documentation, follow up, transabdominal approach per fetus HISTORY ----- OB History 2. Para 1 T1L1 MATERNAL ASSESSMENT ----- Physical Exam Initial weight 95 kg, 210 lb. Initial BMI 37.20kg/m METHOD ----- Transabdominal ultrasound examination ----- Holt . Number of fetuses: 1 DATING ----- GA by prior [id number] w + 3 d ANA by prior [...] 5 lb 8 oz EFW by Hadlock ([id number]) Head / Face / Neck Biometry: A/C Technician 5.3mm Extremities / Bony Struc Biometry: FL [...] and date of were verified by the roto gravure press operator prior tothe exam IMPRESSION ----- 1. [...] (CP) (11/02/2015 12:00 AM CDT) CLINICAL INFORMATION [employer] [facility] Comment: Routine exam WELL WOMAN EXAM LAST MENSTRUAL PERIOD [employer] [facility] Comment:10/05/15 PREV PAP: [employer] [facility] Comment:Information not prov ided PREV BX: [employer] [facility] Comment:Information not prov ided SOURCE [employer] [facility] Comment:Endocervix ADEQUACY: [employer] [facility] Comment: Satisfactory for evaluation. Endocervical/transformation zone component present. INTERPRETATION [employer] [facility] Comment:Negative for intraep ithelial lesion or malignancy. CYTOLOGY INFECTION [facility] [facility] Comment: Shift in vaginal maureen suggestive of bacterial vaginosis. COMMENT [employer] [facility] Comment: This Pap test has been evaluated with computer assisted technology. GOLF BALL WINDER: [facility] [employer] [facility] Comment: MLO, CT(ASCP) CT screening location: [place] [address] [place] [address] Test Performed at: [facility] [address] [place] [address] DEBBIE CHOPRA MD 11/02/2015 us Delphine Lua GAS DISTRIBUTION AND EMERGENCY CLERK PATHOLOGY/CYTOLOGY ORDERABLES F inal Result [employer] [facility] [address] [place] [address] from Last 3 Months or Most Recently Relevant to Health Maintenance Insurance Advance Directives For more information, please contact: [phone] * Full Code (Latest Code Status on File) Date Activated Date Inactivated Comments 12/21/2013 9:08 PM 12/22/2013 6:32 PM Care Teams Residential Treatment Staff Relationship Specialty Start Date End Date Soren Mart MD PCP - General 02/10/09
--- OUTSIDE RECORDS SUMMARY | 2024-10-01 16:16 | XMS_ITS | Encounter Summary ---
Author Organization [employer] Address [address] [place] [address] Care Team Providers Care Gas Operations Analyst Name Role Phone Soren Mart MD Primary Care Provider [phone] Encounter Details Date Type Department Care Team (Latest Contact Info) Description 04/27/2008 Outpatient Historical [facility], [place] Conversion, History Urinary Tract Infection, Site not Specified Social History Tobacco Use Types Packs/Day Years Used Date Smoking Tobacco: Never Assessed Comments Unknown Sex and Gender Information Value Date Recorded Sex Assigned at Not on file Legal Sex Female 3:43 AM COLOR MATCHER Gender Identity Not on file Sexual Orientation Not on file documented as of this encounter Plan of Treatment Not on file documented as of this encounter Procedures Procedure Name Priority Date/Time Associated Diagnosis Comments CHLAMYDIA/N. GONORRHOEAE, DNA Routine 04/27/2008 7:34 PM COLOR MATCHER URINE CULTURE Routine 04/27/2008 7:34 PM COLOR MATCHER documented in this encounter Results * URINE CULTURE (04/27/2008 7:34 PM COLOR MATCHER) FINAL REPORT 50-100,000 colonies/mL Escherichia coli <10,000 colonies/mL Streptococcus Group B -NOTE: In women, recovery of Group B Streptococcus may be significant. However, in non- women, recovery in small quantities suggests contamination with blue urethral maureen. Normal urethral maureen also present. - Phoned report (with read back verified) to [facility] () 04/29/08 10:43:23 -- Faxed report(s): [phone] [facility] SUSCEPTIBILITY PERFORMED ON ESCHERICHIA COLI [facility] 04/27/2008 7:34 PM COLOR MATCHER 04/27/2008 8:27 PM COLOR MATCHER Narrative Organism Antibiotic Method Susceptibility Escherichia coli [...] ORDERA BLES Final Result Performing Organization Address City/[facility]/ZIP Co de Phone Number INTERFACE SYSTEM Refer to clinic/hospital department [facility] CLIA# [id number] [address] [place] [address] * CHLAMYDIA/N. GONORRHOEAE, DNA (04/27/2008 7:34 PM COLOR MATCHER) CHLAMYDIA TRACHOMATIS DNA NOT DETECTED NOT DETECTED [facility] NEISSERIA GONORRHOEAE DNA NOT DETECTED NOT DETECTED [facility] Comment: Lab test performed by: [facility] [address] [address] ZURDO FIGUEROA MD Specimen of unknown material (specimen) URINE SPECIMEN / Unknown 04/27/2008 7:34 PM COLOR MATCHER 04/27/2008 8:08 PM COLOR MATCHER us History Conversion BODY FLUIDS AND STOOLS Final Result Performing Organization Address City/[facility]/ZIP Co de Phone Number INTERFACE SYSTEM Refer to clinic/hospital department [facility] CLIA# [id number] [address] [place] [address] documented in this encounter Visit Diagnoses Diagnosis Urinary tract infection, site not specified documented in this encounter Care Teams Gas Operations Analyst Relationship Specialty Start Date End Date Soren Mart MD PCP - General 02/10/09 documented as of this encounter
--- OUTSIDE RECORDS SUMMARY | 2024-10-01 16:16 | XMS_ITS | Encounter Summary ---
Author Organization [facility] Address [address] [place] [address] Care Team Providers Care Patient Information Coordinator Name Role Phone Soren Mart MD Primary Care Provider [phone] Encounter Details Date Type Department Care Team (Late st Contact Info) Description 06/24/2006 Orders Only [facility] Internal Medicine [address] [address] Inge Hutson MD NO ADDRESS ON FILE Social History Tobacco Use Types Packs/Day Years Used Date Smoking Tobacco: Never Assessed Comments Unknown Sex and Gender Information Value Date Recorded Sex Assigned at Not on file Legal Sex Female 3:43 AM MUD MILL TENDER Gender Identity Not on file Sexual Orientation Not on file documented as of this encounter Progress Notes * Inge Hutson MD - 11/10/2007 10:59 AM CDT TIME:04:58 pm PATIENT`S HOME PHONE: PATIENT`S WORK PHONE: PATIENT`S INSURANCE: [facility] [employer] [facility] WHO TOOK THE CALL: Amelia Lee R GENERAL INFORMATION ALTERNATIVE PHONE NUMBER: [phone] or work WHO CALLED: Patient`s mother called. CURRENT ALLERGY LIST: NO KNOWN DRUG ALLERGY PHARMACY NUMBER: [phone] PROBLEMS: feeling terrible, chest tight-wheezing sound, did [...] filedocumented in this encounter Care Teams Patient Information Coordinator Relationship Specialty Start Date End Date Soren Mart MD PCP - General 02/10/09 documented as of this encounter
--- OUTSIDE RECORDS SUMMARY | 2024-10-01 16:16 | XMS_ITS | Encounter Summary ---
Author Organization [facility] Address [address] [place] [address] Care Team Providers Care Professor Of Nursing Name Role Phone Soren Mart MD Primary Care Provider Encounter Details Date Type Department Care Team (Late st Contact Info) Description 01/15/2006 Outpatient Historical [facility] Internal Medicine [address] [address] Inge Hutson MD NO ADDRESS ON FILE Social History Tobacco Use Types Packs/Day Years Used Date Smoking Tobacco: Never Assessed Comments Unknown Sex and Gender Information Value Date Recorded Sex Assigned at Not on file Legal Sex Female 3:43 AM TRAVEL REGISTERED NURSE NICU Gender Identity Not on file Sexual Orientation Not on file documented as of this encounter Plan of Treatment Not on file documented as of this encounter Visit Diagnoses Not on filedocumented in this encounter Care Teams Professor Of Nursing Relationship Specialty Start Date End Date Soren Mart MD PCP - General 02/10/09 documented as of this encounter
--- OUTSIDE RECORDS SUMMARY | 2024-10-01 16:16 | XMS_ITS | Encounter Summary ---
Author Organization [facility] Address [address] [place] [address] Care Team Providers Care Aircraft Detail Draftsperson Name Role Phone Soren Mart MD Primary Care Provider [phone] Encounter Details Date Type Department Care Team (Late st Contact Info) Description 07/08/2007 Orders Only [facility] Internal Medicine [address] [address] Inge Hutson MD NO ADDRESS ON FILE Social History Tobacco Use Types Packs/Day Years Used Date Smoking Tobacco: Never Assessed Comments Unknown Sex and Gender Information Value Date Recorded Sex Assigned at Not on file Legal Sex Female 3:43 AM FIRE ALARM TECHNICIAN Gender Identity Not on file Sexual Orientation Not on file documented as of this encounter Progress Notes * Inge Hutson MD - 10/28/2007 8:18 PM CDT TIME:01:31 pm PATIENT`S HOME PHONE: PATIENT`S WORK PHONE: PATIENT`S INSURANCE: [facility] [employer] [facility] WHO TOOK THE CALL: Amelia Lee R GENERAL INFORMATION WHO CALLED: Patient`s mother called. CURRENT ALLERGY LIST: NO KNOWN DRUG ALLERGY PHARMACY NUMBER: [phone] PROBLEMS: CONGESTION: Patient complains of congestion. COUGH:Patient [...] on filedocumented in this encounter Care Teams Aircraft Detail Draftsperson Relationship Specialty Start Date End Date Soren Mart MD PCP - General 02/10/09 documented as of this encounter
--- OUTSIDE RECORDS SUMMARY | 2024-10-01 16:16 | XMS_ITS | Encounter Summary ---
Author Organization [facility] Address [address] [place] [address] Care Team Providers Care Flaring Machine Operator Name Role Phone Soren Mart MD Primary Care Provider Encounter Details Date Type Department Care Team (Late st Contact Info) Description 07/06/2007 Outpatient Historical [facility] Internal Medicine [address] [address] Inge Hutson MD NO ADDRESS ON FILE Social History Tobacco Use Types Packs/Day Years Used Date Smoking Tobacco: Never Assessed Comments Unknown Sex and Gender Information Value Date Recorded Sex Assigned at Not on file Legal Sex Female 3:43 AM BRUSH TRIMMING MACHINE SETTER Gender Identity Not on file Sexual Orientation Not on file documented as of this encounter Last Filed Vital Signs Vital Sign Reading Time Taken Comments Blood Pressure - - Pulse - - Temperature 37 C (98.6 F) 07/06/2007 11:45 AM BRUSH TRIMMING MACHINE SETTER Respiratory Rate - - Oxygen Saturation - - Inhaled Oxygen Concentration - - Weight 68 kg (150 lb) 07/06/2007 11:45 AM BRUSH TRIMMING MACHINE SETTER Height - - Body Mass Index - - documented in this encounter Plan of Treatment Not on file documented as of this encounter Visit Diagnoses Not on filedocumented in this encounter Care Teams Flaring Machine Operator Relationship Specialty Start Date End Date Soren Mart MD PCP - General 02/10/09 documented as of this encounter
--- OUTSIDE RECORDS SUMMARY | 2024-10-01 16:16 | XMS_ITS | Encounter Summary ---
Author Organization [facility] Address [address] [place] [address] Care Team Providers Care Cow Buyer Name Role Phone Soren Mart MD Primary Care Provider [phone] Encounter Details Date Type Department Care Team (Late st Contact Info) Description 06/04/2006 Outpatient Historical [facility] Internal Medicine [address] [address] Inge Hutson MD NO ADDRESS ON FILE Social History Tobacco Use Types Packs/Day Years Used Date Smoking Tobacco: Never Assessed Comments Unknown Sex and Gender Information Value Date Recorded Sex Assigned at Not on file Legal Sex Female 3:43 AM ASSOCIATE EDITOR Gender Identity Not on file Sexual Orientation Not on file documented as of this encounter Plan of Treatment Not on file documented as of this encounter Visit Diagnoses Not on filedocumented in this encounter Care Teams Cow Buyer Relationship Specialty Start Date End Date Soren Mart MD PCP - General 02/10/09 documented as of this encounter
--- OUTSIDE RECORDS SUMMARY | 2024-10-01 16:16 | XMS_ITS | Encounter Summary ---
Author Organization [employer] Address 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 Findings: The paranasal sinuses are clear. The orbits are intact. The soft tissues are unremarkable. Impression: Unremarkable study. . Dictated by: VANDANA MCCRARY 02/04/2008 13:43 Electronically signed by: VANDANA MCCRARY 02/04/2008 13:44 Procedure Note Vandana Mccrary - 02/04/2008 [facility] [address] [place], [place] [address] Admit Date: 02/04/2008 ANNI BRYANT Sex: F Admit Prov: ER, AUTHORIZED P Date: 1990 Primary Care Prov: CMRN: [id number] [facility]: [id number] IMAGING SERVICES Ordering Prov: N/A Interpretation Sinuses complete 4 views 02/04/2008 History: Headache. Findings: The paranasal sinuses are clear. The orbits are intact. Thesoft tissues are unremarkable. Impression: Unremarkable study. . Dictated by: VANDANA MCCRARY 02/04/2008 13:43 Electronically signed by: VANDANA MCCRARY 02/04/2008 13:44 Ingrid Giang NP DIAGNOSTIC IMAGING ORDERABLES Final Result * URINALYSIS (02/04/2008 1:15 PM CDT) KETONES UA Negative Negative [facility] CLARITY UA Clear Clear [facility] BILIRUBIN UA Negative Negative [facility] PROTEIN UA Negative Negative [facility] LEUKOCYTE ESTERASE UA Negative Negative [facility] SPECIFIC GRAVITY UA 1.005 1.001 - 1.035 [facility] GLUCOSE UA Negative Negative [facility] BLOOD UA Negative Negative [facility] COLOR UA Pale Yellow [facility] NITRITE UA Negative Negative [facility] UROBILINOGEN UA <1 <=1 mg/dL [facility] PH UA 7.0 5.0 - 8.0 [facility] 02/04/2008 1:15 PM CDT 02/04/2008 1:17 PM CDT Ingrid Giang NP URINE ORDERABLES Final Result INTERFACE SYSTEM Refer to clinic/hospital department [facility] CLIA# [id number] [address] [place] [address] * URINALYSIS WITH REFLEX CULTURE (02/04/2008 1:15 PM CDT) [facility] URINE CULTURE ORDER Not indicated [facility] Comment: Criteria for [...] CDT 02/04/2008 1:17 PM CDT Ingrid Giang MAILROOM ASSOCIATE URINE ORDERABLES Final Result Performing Organization Address [facility] de Phone Number INTERFACE SYSTEM Refer to clinic/hospital department [facility] CLIA# [id number] [address] [place] [address] * POC , URINE (02/04/2008 1:11 PM CDT) [facility] , URINE POC Negative Negative [facility] SPECIFIC GRAVITY UA 1.010 1.001 - 1.035 [facility] Urine specimen (specimen) 02/04/2008 1:11 PM CDT 02/04/2008 1:11 PM CDT us Authorized P Er POINT OF CARE TESTING Final Resu lt Performing Organization Address [facility] de Phone Number INTERFACE SYSTEM Refer to clinic/hospital department [facility] CLIA# [id number] [address] [place] [address] * POC URINALYSIS DIPSTICK (02/04/2008 1:09 PM CDT) [facility] CLARITY UA Clear [facility] PROTEIN UA Negative Negative [facility] BLOOD UA Negative Negative [facility] LEUKOCYTE ESTERASE UA Negative Negative [facility] UROBILINOGEN UA Normal <=1 mg/dL [facility] SPECIFIC GRAVITY UA 1.010 1.001 - 1.030 [facility] GLUCOSE UA Negative Negative [facility] COLOR UA Pale [facility] BILIRUBIN UA Negative Negative [facility] NITRITE UA Negative Negative [facility] PH UA 7.0 5.0 - 8.0 [facility] KETONES UA Negative Negative [facility] COMMENT, URINE Test not chrgd/to repeat [facility] Urine specimen (specimen) 02/04/2008 1:09 PM CDT 02/04/2008 1:09 PM CDT us Authorized P Er POINT OF CARE TESTING Edited INTERFACE SYSTEM Refer to clinic/hospital department [facility] CLIA# [id number] [address] [place] [address] * (ABNORMAL) CBC WITH DIFFERENTIAL (02/04/2008 11:50 AM CDT) WBC 10.4(H) 4.0 - 9.8 K/uL [facility] MCH 30.4 27.2 - 32.6 pg [facility] MPV 10.3 9.3 - 12.4 fL [facility] HEMATOCRIT 37.5 35.5 - 44.0 % [facility] RDW-STDEV 42.9 37.1 - 48.7 fL [facility] RBC 4.08 3.90 - 4.90 M/uL [facility] MCHC 33.1 31.5 - 35.5 % [facility] MCV 91.9 82.0 - 99.0 fL [facility] PLATELETS 224 140 - 350 K/uL [facility] HEMOGLOBIN 12.4 11.8 - 14.8 g/dL [facility] RDW 12.7 11.5 - 14.5 % [facility] PLATELET EST. Consistent w/ count Normal [facility] LYMPHOCYTES 11(L) 16 - 45 % [facility] BASOPHILS ABSOLUTE 0.00 0.00 - 0.20 K/uL [facility] BASOPHILS 0 0 - 2 % [facility] MONOCYTE ABSOLUTE 0.31 0.10 - 1.30 K/uL [facility] MONOCYTES 3 3 - 13 % [facility] RBC MORPHOLOGY Normal Normal [facility] NEUTROPHIL ABSOLUTE 8.84(H) 1.90 - 7.00 K/uL [facility] NEUTROPHILS, SEG 85(H) 45 - 70 % [facility] ATYPICAL LYMPHOCYTE 1 0 - 5 % [facility] EOSINOPHIL ABSOLUTE 0.00 0.00 - 0.70 K/uL [facility] REVIEWED ON SMEAR Plt OK by Smear Rev. [facility] EOSINOPHILS 0 0 - 7 % [facility] LYMPHOCYTE ABSOLUTE 1.25 0.70 - 4.50 K/uL [facility] Blood specimen (specimen) 02/04/2008 11:50 AM CDT 02/04/2008 11:55 AM CDT us Ingrid Giang NP HEMATOLOGY ORDERABLES Edited INTERFACE SYSTEM Refer to clinic/hospital department [facility] CLIA# [id number] [address] [facility] [place] [address] * MONONUCLEOSIS SCREEN (02/04/2008 11:50 AM CDT) MONONUCLEOSIS SCREEN Negative Negative [facility] Blood specimen (specimen) 02/04/2008 11:50 AM CDT 02/04/2008 11:55 AM CDT Ingrid Giang NP HEMATOLOGY ORDERABLES Final R esult Performing Organization Address [facility] de Phone Number INTERFACE SYSTEM Refer to clinic/hospital department [facility] CLIA# [id number] [address] [place] [address] * C-REACTIVE PROTEIN (02/04/2008 11:50 AM CDT) Pathologist [facility] CRP 0.2 0.0 - 0.8 mg/dL [facility] Blood specimen (specimen) 02/04/2008 11:50 AM CDT 02/04/2008 11:55 AM CDT Ingrid Giang NP CHEMISTRY ORDERABLES Final Re sult Performing Organization Address [facility] de Phone Number INTERFACE SYSTEM Refer to clinic/hospital department [facility] CLIA# [id number] [address] [place] [address] * COMPREHENSIVE METABOLIC PANEL (02/04/2008 11:50 AM CDT) ALKALINE PHOSPHATASE 65 35 - 187 U/L [facility] BILIRUBIN TOTAL 0.4 0.2 - 1.0 mg/dL [facility] CO2 23 22 - 30 mmol/L [facility] TOTAL PROTEIN 7.1 6.3 - 8.6 g/dL [facility] POTASSIUM 3.9 3.5 - 4.9 mmol/L [facility] GLUCOSE 101 60 - 110 mg/dL [facility] AST 16 12 - 32 U/L [facility] BUN 10 6 - 20 mg/dL [facility] CALCIUM 9.0 8.4 - 10.2 mg/dL [facility] Comment:Note new reference r percy effective 01/14/08 CHLORIDE 103 96 - 108 mmol/L [facility] ALBUMIN 4.4 3.2 - 4.5 g/dL [facility] CREATININE 0.64 0.51 - 0.95 mg/dL [facility] SODIUM 135 135 - 145 mmol/L [facility] ALT 14 0 - 31 U/L [facility] GFR, N/A:MDRD equation validated for pts. >18 yrs. >=60 mL/min/1 .7 sq meter [facility] GFR N/A:MDRD equation validated for pts. >18 yrs. >=60 mL/min/1 .7 sq meter [facility] Comment: Modification of Diet in Renal Disease (MDRD) study formula. Estimated GFR rate interpretative information for both Americans and non- Americans is available on the [facility] Intranet at: [email or web address] Select: Lab Policies and Procedures Select: Reference Ranges - GFR Blood specimen (specimen) 02/04/2008 11:50 AM CDT 02/04/2008 11:55 AM CDT Ingrid Giang MAILROOM ASSOCIATE CHEMISTRY ORDERABLES Edited INTERFACE SYSTEM Refer to clinic/hospital department [facility] CLIA# [id number] [address] [place] [address] documented in this encounter Visit Diagnoses Not on filedocumented in this encounter Care Teams Bonding Machine Tender Relationship Specialty Start Date End Date Soren Mart MD PCP - General 02/10/09 documented as of this encounter
--- OUTSIDE RECORDS SUMMARY | 2024-10-01 16:16 | XMS_ITS | Encounter Summary ---
Author Organization [facility] Address 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
--- OUTSIDE RECORDS SUMMARY | 2024-10-01 16:16 | XMS_ITS | Encounter Summary ---
Author Organization [employer] [facility] Address [address] [place] [address] Care Team Providers Care Roustabout Pusher Name Role Phone Soren Mart MD Primary Care Provider [phone] Encounter Details Date Type Department Care Team (Late st Contact Info) Description 02/27/2012 Chart Note [facility] Services [place] [address] [facility] [address] [place] [address] Radha Mcallister, Physical Therapist Social History Tobacco Use Types Packs/Day Years Used Date Smoking Tobacco: Never Smokeless Tobacco: Never Alcohol Use Standard Drinks/Week Comments No 0 (1 standard drink = 0.6 oz pur e alcohol) Comments No Sex and Gender Information Value Date Recorded Sex Assigned at Not on file 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 Radha Mcallister P.T. [facility] Therapy Services [address] [place] [address]. [address] [place] [address] documented in this encounter Plan of Treatment Not on file documented as of this encounter Visit Diagnoses Not on filedocumented in this encounter Care Teams Roustabout Pusher Relationship Specialty Start Date End Date Soren Mart MD PCP - General 02/10/09 documented as of this encounter
--- OUTSIDE RECORDS SUMMARY | 2024-10-01 16:16 | XMS_ITS | Encounter Summary ---
Author Organization [facility] Address [address] [place] [address] Care Team Providers Care Sand Car Worker Name Role Phone Soren Mart MD Primary Care Provider [phone] Encounter Details Date Type Department Care Team (Late st Contact Info) Description 04/30/[address] 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 LAB ORDERS: Order number: [id number] Test Ordered: REMOVE CERUMEN IMPACT 82001 682.0-OTHER CELLULITIS AND ABSCESS ASSESSMENT: advised warm [...] on filedocumented in this encounter Care Teams Sand Car Worker Relationship Specialty Start Date End Date Soren Mart MD PCP - General 02/10/09 documented as of this encounter
--- OUTSIDE RECORDS SUMMARY | 2024-10-01 16:16 | XMS_ITS | Encounter Summary ---
Author Organization [employer] Address [address] [place] [address] Care Team Providers Care Funeral Home Director Name Role Phone Soren Mart MD Primary Care Provider [phone] Encounter Details Date Type Department Care Team [...] file Legal Sex Female 3:43 AM DIRECTOR CONSUMER Gender Identity Not on file Sexual Orientation [...] PM CDT Narrative 08/25/2008 9:51 PM CDT [place] [address] [place], [place] [address] Admit Date: 08/25/2008 ANNI BRYANT Sex: F Admit Prov: ER, AUTHORIZED P Date: 1990 Primary Care Prov: CMRN: [id number] Room: ER-A N: [address] [place] [address] IMAGING SERVICES Ordering Prov: N/A Accession Number: [id number] Interpretation EXAMINATION: LEFT FIFTH FINGER, 3 VIEWS. [...] Procedure Note Denver Panda MD - 08/25/2008 [place] [address] [place], [place] [address] Admit Date: 08/25/2008 ANNI BRYANT Sex: F Admit Prov: ER, AUTHORIZED P Date: 1990 Primary Care Prov: CMRN: [id number] [id number] IMAGING SERVICES Ordering Prov: N/A Interpretation EXAMINATION: [...] premises documented in this encounter Care Teams Funeral Home Director Relationship Specialty Start Date End Date Soren Mart MD PCP - General 02/10/09 documented as of this encounter
--- OUTSIDE RECORDS SUMMARY | 2024-10-01 16:16 | XMS_ITS | Encounter Summary ---
Author Organization [employer] Address 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 UTILITY 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 Gender Identity Not on file Sexual [...] HEMATOLOGY ORDERABLES Ed ited Performing Organization Address City/State/[facility] Co de Phone Number INTERFACE SYSTEM [...] HEMATOLOGY ORDERABLES Ed ited Performing Organization Address [facility] Phone Number INTERFACE SYSTEM Refer to clinic/hospital department * HEMOGLOBIN A1C (12/27/2006 12:31 PM CDT) HEMOGLOBIN A1C 5.4 4.1 - 6.1 % of Hgb INTERFACE SYSTEM GLUCOSE, MEAN BLOOD 115 mg/dL INTERFACE SYSTEM 12/27/2006 12:3 1 PM CDT us Inge Hutson MD CHEMISTRY ORDERABLES Darrel juan Performing Organization Address [facility] Phone Number INTERFACE SYSTEM Refer to clinic/hospital department * TSH (12/27/2006 12:31 PM CDT) TSH 1.50 0.27 - 4.20 uU/mL INTERFACE SYSTEM 12/27/2006 12:3 1 PM CDT us Inge Hutson MD CHEMISTRY ORDERABLES Darrel juan Performing Organization Address [facility] Phone Number INTERFACE SYSTEM Refer [...] CHEMISTRY ORDERABLES Darrel juan Performing Organization Address [facility] Phone Number INTERFACE SYSTEM Refer to clinic/hospital department * FERRITIN (12/27/2006 12:31 PM CDT) FERRITIN 39 13 - 150 ng/mL INTERFACE SYSTEM 12/27/2006 12:3 1 PM CDT us Inge Hutson MD CHEMISTRY ORDERABLES Darrel juan Performing Organization Address City/[facility] Co de Phone Number INTERFACE SYSTEM [...] and non- Americans is available on the [facility] Intranet at: [email or web address] Select: Lab Policies and Procedures Select: Reference Ranges - GFR 12/27/2006 12:3 1 PM CDT Inge Hutson MD CHEMISTRY ORDERABLES Darrel juan Performing Organization Address City/[facility] Co de Phone Number INTERFACE SYSTEM Refer to clinic/hospital department documented in this encounter Visit Diagnoses Diagnosis Disturbance of skin sensation- Primary documented in this encounter Care Teams Hotel Or Motel Room Service Supervisor Relationship Specialty Start Date End Date Soren Mart MD PCP - General 02/10/09 documented as of this encounter
--- OUTSIDE RECORDS SUMMARY | 2024-10-01 16:16 | XMS_ITS | Encounter Summary ---
Author Organization [facility] Address [address] [place] [address] Care Team Providers Care Fire Captain Name Role Phone Soren Mart MD Primary Care Provider [phone] Encounter Details Date Type Department Care Team (Late st Contact Info) Description 04/06/2007 Orders Only [facility] Internal Medicine [address] [address] Inge Hutson MD NO ADDRESS ON FILE Social History Tobacco Use Types Packs/Day Years Used Date Smoking Tobacco: Never Assessed Comments Unknown Sex and Gender Information Value Date Recorded Sex Assigned at Not on file Legal Sex Female 3:43 AM PHARMACY SPECIALIST Gender Identity Not on file Sexual Orientation Not on file documented as of this encounter Progress Notes * Inge Hutson MD - 10/30/2007 1:35 PM CDT TIME:08:59 am PATIENT`S HOME PHONE: PATIENT`S WORK PHONE: PATIENT`S INSURANCE: [employer] WHO TOOK THE CALL: Amelia Lee R GENERAL INFORMATION ALTERNATIVE PHONE NUMBER: [phone] or Amelia at work WHO CALLED: Patient`s mother called. CURRENT ALLERGY LIST: NO KNOWN DRUG ALLERGY PHARMACY NUMBER: [phone] PROBLEMS: feeling bad , achy FEVER: Patient [...] on filedocumented in this encounter Care Teams Fire Captain Relationship Specialty Start Date End Date Soren Mart MD PCP - General 02/10/09 documented as of this encounter
--- OUTSIDE RECORDS SUMMARY | 2024-10-01 16:16 | XMS_ITS | Encounter Summary ---
Author Organization [facility] Address 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 WHO TOOK THE CALL: Amelia Lee R GENERAL INFORMATION ALTERNATIVE PHONE NUMBER: here WHO CALLED: Patient`s mother called. 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 Can you prescribe a few for the stomach cramps. She has to go back to school to be able to be in [employer]'s performance. NAUSEA: Patient complains of nausea. The [...] on filedocumented in this encounter Care Teams Ecdis N Navigation Operator Relationship Specialty Start Date End Date Soren Mart MD PCP - General 02/10/09 documented as of this encounter
--- OUTSIDE RECORDS SUMMARY | 2024-10-01 16:16 | XMS_ITS | Encounter Summary ---
Author Organization [employer] Address [address] [place] [address] Care Team Providers Care Diving Instructor Name Role Phone Sorne Mart MD Primary Care Provider [phone] Encounter Details Date Type Department Care Team (Latest Contact Info) Description 07/06/2005 [facility], History FX MID/PRX PHAL, HAND-CLOSE (Primary Dx) Social History Tobacco Use Types Packs/Day Years Used Date Smoking Tobacco: Never Assessed Comments Unknown Sex and Gender Information Value Date Recorded Sex Assigned at Not on file Legal Sex Female 3:43 AM HIDE SORTER Gender Identity Not on file Sexual Orientation Not on file documented as of this encounter Plan of Treatment Not on file documented as of this encounter Visit Diagnoses Diagnosis Closed fracture of middle or proximal phalanx or phalanges of hand- Primary documented in this encounter Care Teams Diving Instructor Relationship Specialty Start Date End Date Soren Mart MD PCP - General 02/10/09 documented as of this encounter
--- OUTSIDE RECORDS SUMMARY | 2024-10-01 16:16 | XMS_ITS | Encounter Summary ---
Author Organization [employer] Address 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
--- OUTSIDE RECORDS SUMMARY | 2024-10-01 16:16 | XMS_ITS | Continuity of Care Document ---
Author Organization [facility] Address [address] [facility] [address] [place] [address] Phone Care Team Providers Care Peripatologist Name Role Phone Maia Horner Unavailable Unavailable Advance Directives Directive Yes / No Effective Date File Name No Information Encounters Encounter Description Practice Location Reason(s) For Visit Diagnoses Date Provider Providers Copied on Encounter [facility], [address] [place] [address] [address], [place], [place], [id number], [place] tel:[phone] [facility] [place] No Information May-0 9-200 0 Siri Carvalho. [address] [facility] , [address], [place], [address], [place]. tel:[phone] Family History Family Member Type Diagnosis Age At Onset No Information Payers Payer name Insurance type Covered alliance party ID Authoriza tion(s) No Information Social [...]
--- OUTSIDE RECORDS SUMMARY | 2024-10-01 16:16 | XMS_ITS | Encounter Summary ---
Author Organization [employer] Address [address] [place] [address] Care Team Providers Care Bar Host/Hostess Name Role Phone Soren Mart MD Primary Care Provider [phone] Encounter Details Date Type Department Care Team (Latest Contact Info) Description 02/06/2009 Outpatient Historical [facility] Soren Mart MD [address] [place] [address] Head Injury, Unspecified Social History Tobacco Use Types Packs/Day Years Used Date Smoking Tobacco: Never Alcohol Use Standard Drinks/Week Comments Not Asked 0 (1 standard drink = 0.6 oz pur e alcohol) Comments No Sex and Gender Information Value Date Recorded Sex Assigned at Not on file 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
--- OUTSIDE RECORDS SUMMARY | 2024-10-01 16:16 | XMS_ITS | Encounter Summary ---
Author Organization [facility] Address 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
--- OUTSIDE RECORDS SUMMARY | 2024-10-01 16:16 | XMS_ITS | Encounter Summary ---
Author Organization [facility] Address 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 [...] on filedocumented in this encounter Care Teams Casting Coordinator Relationship Specialty Start Date End Date Soren Mart MD PCP - General 02/10/09 documented as of this encounter
--- OUTSIDE RECORDS SUMMARY | 2024-10-01 16:16 | XMS_ITS | Encounter Summary ---
Author Organization [facility] Address [address] [place] [address] Care Team Providers Care Rabbit Fancier Name Role Phone Soren Mart MD Primary Care Provider [phone] Encounter Details Date Type Department Care Team (Late st Contact Info) Description 05/21/2008 Outpatient Historical [facility] Dario Coronel MD [address] [place] [address] Social History Tobacco Use Types Packs/Day Years Used Date Smoking Tobacco: Never Assessed Comments Unknown Sex and Gender Information Value Date Recorded Sex Assigned at Not on file Legal Sex Female 3:43 AM DOUBLE END SEWER Gender Identity Not on file Sexual Orientation Not on file documented as of this encounter Plan of Treatment Not on file documented as of this encounter Procedures Procedure Name Priority Date/Time Associated Diagnosis Comments URINE CULTURE Routine 05/21/2008 11:47 AM DOUBLE END SEWER documented in this encounter Results * URINE CULTURE (05/21/2008 11:47 AM DOUBLE END SEWER) PRELIMINARY REPORT Pending [facility] FINAL REPORT No growth 24 hours [facility] 05/21/2008 11:4 7 AM DOUBLE END SEWER 05/21/2008 6:10 PM DOUBLE END SEWER us Dario Coronel MD MICROBIOLOGY - GENERAL ORDER ADAM Final Result INTERFACE SYSTEM Refer to clinic/hospital department [facility] CLIA# [id number] [address] [place] [address] documented in this encounter Visit Diagnoses Not on filedocumented in this encounter Care Teams Rabbit Fancier Relationship Specialty Start Date End Date Soren Mart MD PCP - General 02/10/09 documented as of this encounter
--- OUTSIDE RECORDS SUMMARY | 2024-10-01 16:16 | XMS_ITS | Encounter Summary ---
Author Organization [employer] Address [address] [place] [address] Care Team Providers Care Machine Stitcher Name Role Phone Soren Mart MD Primary Care Provider Encounter Details Date Type Department Care Team (Late st Contact Info) Description 03/14/2005 Outpatient Historical [facility] (Peds Cardiology-[facility]) [address] [place] [address] Warner Flores MD NO ADDRESS ON FILE Social History Tobacco Use Types Packs/Day Years Used Date Smoking Tobacco: Never Assessed Comments Unknown Sex and Gender Information Value Date Recorded Sex Assigned at Not on file Legal Sex Female 3:43 AM INFORMATION DIRECTOR Gender Identity Not on file Sexual Orientation Not on file documented as of this encounter Plan of Treatment Not on file documented as of this encounter Visit Diagnoses Not on filedocumented in this encounter Care Teams Machine Stitcher Relationship Specialty Start Date End Date Soren Mart MD PCP - General 02/10/09 documented as of this encounter
--- OUTSIDE RECORDS SUMMARY | 2024-10-01 16:16 | XMS_ITS | Encounter Summary ---
Author Organization [facility] Address 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
--- OUTSIDE RECORDS SUMMARY | 2024-10-01 16:16 | XMS_ITS | Encounter Summary ---
Author Organization [employer] Address [address] [place] [address] Care Team Providers Care Flight Simulator Teacher Name Role Phone Soren Mart MD Primary Care Provider [phone] Encounter Details Date Type Department Care Team (Latest Contact Info) Description 06/05/2006 Outpatient Historical [facility] David Guillermo MD NO ADDRESS ON FILE Chronic Tonsillitis (Primary Dx) Social History Tobacco Use Types Packs/Day Years Used Date Smoking Tobacco: Never Assessed Comments Unknown Sex and Gender Information Value Date Recorded Sex Assigned at Not on file Legal Sex Female 3:43 AM FACILITIES ADMINISTRATOR Gender Identity Not on file Sexual Orientation Not on file documented as of this encounter Plan of Treatment Not on file documented as of this encounter Procedures Procedure Name Priority Date/Time Associated Diagnosis Comments POC , URINE Routine 06/05/2006 9:20 AM FACILITIES ADMINISTRATOR HEMOGLOBIN AND HEMATOCRIT Routine 06/05/2006 9:11 AM FACILITIES ADMINISTRATOR documented in this encounter Results * POC , URINE (06/05/2006 9:20 AM FACILITIES ADMINISTRATOR) , URINE POC Negative Negative INTERFACE SYSTEM 06/05/2006 9:20 AM FACILITIES ADMINISTRATOR us David Guillermo MD POINT OF CARE TESTING Final Result INTERFACE SYSTEM Refer to clinic/hospital department * HEMOGLOBIN AND HEMATOCRIT (06/05/2006 9:11 AM FACILITIES ADMINISTRATOR) HEMOGLOBIN 13.3 11.8 - 14.8 g/dL INTERFACE SYSTEM HEMATOCRIT 39.0 35.5 - 44.0 % INTERFACE SYSTEM 06/05/2006 9:11 AM FACILITIES ADMINISTRATOR us David Guillermo MD HEMATOLOGY ORDERABLES Final Result INTERFACE SYSTEM Refer to clinic/hospital department documented in this encounter Visit Diagnoses Diagnosis Chronic tonsillitis- Primary documented in this encounter Care Teams Flight Simulator Teacher Relationship Specialty Start Date End Date Soren Mart MD PCP - General 02/10/09 documented as of this encounter
--- OUTSIDE RECORDS SUMMARY | 2024-10-01 16:16 | XMS_ITS | Encounter Summary ---
Author Organization [facility] Address [address] [place] [address] Care Team Providers Care Final Cleaner Name Role Phone Soren Mart MD Primary Care Provider [phone] Encounter Details Date Type Department Care Team (Late st Contact Info) Description 06/04/2006 Orders Only [facility] Internal Medicine [address] [address] Inge Hutson MD NO ADDRESS ON FILE Social History Tobacco Use Types Packs/Day Years Used Date Smoking Tobacco: Never Assessed Comments Unknown Sex and Gender Information Value Date Recorded Sex Assigned at Not on file Legal Sex Female 3:43 AM MERCANTILE REPORTER Gender Identity Not on file Sexual Orientation [...] NEW PRESCRIPTION, 06/04/2006. LAB ORDERS: Order number: [id number] Test Ordered: HEMOCCULT SINGLE [id number] + PATIENT EDUCATION: Questions were allowed to stated satisfaction. PREVENTIVE COUNSELING The patient was counseled regarding diet. RETURN VISIT : please waive todays co-pay Electronically Signed by: Inge Hutson MD on Wednesday, June 07, 2006 documented in this encounter Plan of Treatment Not on file documented as of this encounter Visit Diagnoses Not on filedocumented in this encounter Care Teams Final Cleaner Relationship Specialty Start Date End Date Sroen Mart MD PCP - General 02/10/09 documented as of this encounter
--- OUTSIDE RECORDS SUMMARY | 2024-10-01 16:16 | XMS_ITS | Encounter Summary ---
Author Organization [facility] Address [address] [place] [address] Care Team Providers Care Farm Specialist Name Role Phone Soren Mart MD Primary Care Provider [phone] Encounter Details Date Type Department Care Team (Late st Contact Info) Description 09/07/2007 Orders Only [facility] Internal Medicine [address] [address] Inge Hutson MD NO ADDRESS ON FILE Social History Tobacco Use Types Packs/Day Years Used Date Smoking Tobacco: Never Assessed Comments Unknown Sex and Gender Information Value Date Recorded Sex Assigned at Not on file Legal Sex Female 3:43 AM NIGHT WAREHOUSE SELECTOR Gender Identity Not on file Sexual Orientation Not on file documented as of this encounter Progress Notes * Inge Hutson MD - 11/19/2007 7:35 PM CDT TIME:02:22 pm PATIENT`S HOME PHONE: PATIENT`S WORK PHONE: PATIENT`S INSURANCE: [facility] [employer] [facility] WHO TOOK THE CALL: Thuan Cohen N Julia GENERAL INFORMATION ALTERNATIVE PHONE NUMBER: [phone] WHO CALLED: Patient`s mother called. CURRENT ALLERGY LIST: NO KNOWN DRUG ALLERGY PHARMACY NUMBER: [phone] [facility] PROBLEMS: VAGINAL DISCHARGE: [...] some metrogel but would have her see food safety auditor if her sx persist. MEDICATIONS: Call in [...] filedocumented in this encounter Care Teams Farm Specialist Relationship Specialty Start Date End Date Soren Mart MD PCP - General 02/10/09 documented as of this encounter
--- OUTSIDE RECORDS SUMMARY | 2024-10-01 16:16 | XMS_ITS | Encounter Summary ---
Author Organization [facility] Address [address] [place] [address] Care Team Providers Care String Top Sealer Name Role Phone Soren Mart MD Primary Care Provider Encounter Details Date Type Department Care Team (Late st Contact Info) Description 04/30/2006 Outpatient Historical [facility] Internal Medicine [address] [address] Inge Hutson MD NO ADDRESS ON FILE Social History Tobacco Use Types Packs/Day Years Used Date Smoking Tobacco: Never Assessed Comments Unknown Sex and Gender Information Value Date Recorded Sex Assigned at Not on file Legal Sex Female 3:43 AM TOOL GRINDER SET UP OPERATOR GEAR Gender Identity Not on file Sexual Orientation Not on file documented as of this encounter Plan of Treatment Not on file documented as of this encounter Visit Diagnoses Not on filedocumented in this encounter Care Teams String Top Sealer Relationship Specialty Start Date End Date Soren Mart MD PCP - General 02/10/09 documented as of this encounter
--- OUTSIDE RECORDS SUMMARY | 2024-10-01 16:16 | XMS_ITS | Encounter Summary ---
Author Organization [employer] [facility] Address 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
--- OUTSIDE RECORDS SUMMARY | 2024-10-01 16:16 | XMS_ITS | Encounter Summary ---
Author Organization [facility] Address 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 Gender Identity Not on file Sexual Orientation Not on file documented as of this encounter Progress Notes * Inge Hutson MD - 10/29/2007 5:13 PM CDT TIME:02:07 pm PATIENT`S HOME PHONE: PATIENT`S WORK PHONE: PATIENT`S INSURANCE: [facility] [employer] [facility] WHO TOOK THE CALL: Amelia Lee R GENERAL INFORMATION ALTERNATIVE PHONE NUMBER: [phone] WHO CALLED: Patient`s mother called.Carly Cisneros CURRENT [...] on filedocumented in this encounter Care Teams Restorative Care Technician Relationship Specialty Start Date End Date Soren Mart MD PCP - General 02/10/09 documented as of this encounter
--- OUTSIDE RECORDS SUMMARY | 2024-10-01 16:16 | XMS_ITS | Encounter Summary ---
Author Organization [employer] Address 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 Please refer to surgeon s operative report for specific details. Dictated by: RADIOLOGY, DEPARTMENT O Electronically signed by: RADIOLOGY, DEPARTMENT 10/01/2008 11:39 Transcribed: 10/01/2008 07:42 AMK Procedure Note Radiology, Radiologist - 10/01/2008 [address] [address] [place], [place] [address] Admit Date: 09/23/2008 ANNI BRYANT Sex: F Admit Prov: ELMO REICH Date: 1990 Primary Care Prov: CMRN: [id number] [facility]: [facility]: [id number] IMAGING SERVICES Ordering Prov: ELMO REICH Interpretation [...] AM CDT) , URINE POC Negative Negative [facility] Urine specimen (specimen) 09/23/2008 10:00 AM CDT 09/23/2008 10:00 AM CDT Elmo Reich MD POINT OF CARE TESTING Final Re sult Performing Organization Address City/[facility] de Phone Number INTERFACE SYSTEM Refer to clinic/hospital department [facility] CLIA# [id number] [address] [place] [address] * HEMOGLOBIN AND HEMATOCRIT (09/23/2008 9:50 AM CDT) HEMOGLOBIN 12.3 11.8 - 14.8 g/dL [facility] HEMATOCRIT 37.5 35.5 - 44.0 % [facility] Blood specimen (specimen) 09/23/2008 9:50 AM CDT 09/23/2008 10:05 AM CDT Narrative INTERFACE SYSTEM - 09/23/2008 10:15 AM CDT room 6 Elmo Reich MD HEMATOLOGY ORDERABLES Final Re sult Performing Organization Address [facility] Phone Number INTERFACE SYSTEM Refer to clinic/hospital department [facility] CLIA# [id number] [address] [place] [address] documented in this encounter Visit Diagnoses Not on filedocumented in this encounter Care Teams Health Assessment And Treatment Teacher Relationship Specialty Start Date End Date Soren Mart MD PCP - General 02/10/09 documented as of this encounter
--- OUTSIDE RECORDS SUMMARY | 2024-10-01 16:16 | XMS_ITS | Encounter Summary ---
Author Organization [facility] Address 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
--- OUTSIDE RECORDS SUMMARY | 2024-10-01 16:16 | XMS_ITS | Encounter Summary ---
Author Organization [facility] Address [address] [place] [address] Care Team Providers Care Eyeglass Cutter Name Role Phone Soren Mart MD Primary Care Provider [phone] Encounter Details Date Type Department Care Team (Late st Contact Info) Description 10/30/2005 Outpatient Historical [facility] Internal Medicine [address] [address] Inge Hutson MD NO ADDRESS ON FILE Social History Tobacco Use Types Packs/Day Years Used Date Smoking Tobacco: Never Assessed Comments Unknown Sex and Gender Information Value Date Recorded Sex Assigned at Not on file Legal Sex Female 3:43 AM MANDARIN SPEAKING NANNY Gender Identity Not on file Sexual [...] 3:0 0 PM CDT Growth Chart: [facility] (Girls, 2- 20 Years) documented in this encounter Plan of Treatment Not on file documented as of this encounter Visit Diagnoses Not on filedocumented in this encounter Care Teams Eyeglass Cutter Relationship Specialty Start Date End Date Soren Mart MD PCP - General 02/10/09 documented as of this encounter
--- OUTSIDE RECORDS SUMMARY | 2024-10-01 16:16 | XMS_ITS | Encounter Summary ---
Author Organization [facility] Address [address] [place] [address] Care Team Providers Care Mail List Processor Name Role Phone Soren Mart MD Primary Care Provider [phone] Encounter Details Date Type Department Care Team (Late st Contact Info) Description 04/30/2006 Outpatient Historical [facility] Internal Medicine [address] [address] Inge Hutson MD NO ADDRESS ON FILE Social History Tobacco Use Types Packs/Day Years Used Date Smoking Tobacco: Never Assessed Comments Unknown Sex and Gender Information Value Date Recorded Sex Assigned at Not on file Legal Sex Female 3:43 AM CRYSTALIZER TENDER Gender Identity Not on file Sexual Orientation Not on file documented as of this encounter Plan of Treatment Not on file documented as of this encounter Visit Diagnoses Not on filedocumented in this encounter Care Teams Mail List Processor Relationship Specialty Start Date End Date Soren Mart MD PCP - General 02/10/09 documented as of this encounter
--- OUTSIDE RECORDS SUMMARY | 2024-10-01 16:16 | XMS_ITS | Encounter Summary ---
Author Organization [employer] Address 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 Gender Identity Not on file Sexual Orientation [...] AM CDT Narrative 08/24/2007 1:35 PM CDT [facility] [address] [place], [place] [address] Admit Date: 08/24/2007 ANNI BRYANT Sex: F Admit Prov: PORTER CHRISTIANSON Date: 1990 Primary Care Prov: ALYX REGAN CMRN: [id number] [id number] Ordering Prov: N/A Accession Number: [id number] Interpretation CT HEAD WITHOUT CONTRAST, 08/23/2005 History: [...] CUONG SHAFFER 08/24/2007 13:35 Transcribed: 08/24/2007 13:11 [facility] Procedure Note Provider, Historical - 08/24/2007 [place] [id number] [place], [place] [address] Admit Date: 08/24/2007 ANNI BRYANT Sex: F Admit Prov: PORTER CHRISTIANSON Date: 1990 Primary Care Prov: ALYX REGAN CMRN: [id number] [id number] IM[facility] SERVICES Ordering Prov: N/A Interpretation CT [...] consciousness documented in this encounter Care Teams Bill Clerk Relationship Specialty Start Date End Date Porter Christianson MD PCP - General 02/10/09 documented as of this encounter
--- OUTSIDE RECORDS SUMMARY | 2024-10-01 16:16 | XMS_ITS | Encounter Summary ---
Author Organization [employer] Address 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
--- OUTSIDE RECORDS SUMMARY | 2024-10-01 16:16 | XMS_ITS | Clinical Summary ---
Author Organization [facility] Address [address] [place] [address] Care Team Providers Care Mold Cleaning And Storage Supervisor Name Role Phone Joy Gardner GWEN-BRAND PROTECTION MANAGER Primary Care Provider + Source Comments [facility],non-owned Affiliates and Associated Physician Practices is amultiple site organization consisting of ambulatory clinics and hospital sitesin [place], [place], [place] and [place]. This disclosure is being madepursuant to the Care Everywhere program and may not contain all information available regarding this patient. Last updated 18.[facility] [employer] Allergies No known active allergies Medications * Be aware that medications may not be up to date on this document. Alwaysverify current medications with the patient. busPIRone (BUSPAR) 10 MG tablet buspirone 10 mg tablet TAKE 1 TABLET BY MOUTH THREE TIMES DAILY Active amphetamine-dext roamphetamine (ADDERALL) 20 MG tablet Take 20 mg by mouth 2 times daily 1 Active PARoxetine (PAXIL) 30 MG tablet Take 30 mg by mouth once daily 1 Active celecoxib (CELEBREX) 200 MG capsule Take 1 capsule by mouth once daily Active ferrous sulfate 325 (65 FE) MG tabletIndication s:Iron deficiency anemia, unspecified iron deficiency anemia type Take 1 (one) tablet by mouth once daily Take one tablet at the same time as your Vitamin C (ascorbic acid). 90 tablet 3 1 Active ascorbic acid (VITAMIN C) 500 MG tabletIndication s:Iron deficiency anemia, unspecified iron deficiency anemia type Take 1 (one) tablet by mouth once daily Take 1 tablet at the same time as your ferrous sulfate (iron tablet). 90 tablet 3 1 Active prazosin (MINIPRESS) 2 MG capsuleIndicatio ns:Nightmare disorder Take 1 (one) capsule by mouth at bedtime 90 capsule 3 1 Active Active Problems Problem Noted Date Diagnosed Date Obesity (BMI 30-39.9) 02/16/2021 Multiple joint pain 08/09/2020 Daytime hypersomnia 07/24/2020 ADD (attention deficit disorder) 12/21/2013 Thoracic outlet syndrome 04/25/2011 Anxiety disorder 07/17/2002 Depressive disorder 07/17/2000 Immunizations Immunization Administration Dates Next Due INFLUENZA VACCINE, TRIV. (AF LURIA, FLUZONE TRIVALENT; 6MO+) (IIV3) 04/13/2016,04/14/2014,05/21/2010 [employer] primary monoval ent 12+ yr 0.3mL Purple cap 10/12/2020,09/14/2020 DTaP VACCINE IM (6wk-6yrs) 12/15/2005,,01/27/1993,1991,1991,1991 FLU VACCINE TRI IIV3 SPLIT P F IM (FLUVIRIN) 04/19/2015 HEP B VACCINE, ADULT 3 DOSE 08/17/1997, 7,02/07/1997 HIB VACCINE 10/28/1992, 2,1991,1991 MMR 02/07/1997,10/28/1992 POLIO IPV 02/07/1997, 3,1991,1991 TDAP (7yrs+) 09/24/2013 Td (Adult), 2 Lf [...] have received? Associate degree: academic program 02/13/2021 Comments Unknown Sex and Gender Information Value Date Recorded Sex Assigned at Not on file Legal Sex Female 3:31 PM CDT Gender Identity Not on file Sexual Orientation [...] COVID-19 VACCINE ( season) 2024 10/12/2020, 09/14/2020 DEPRESSION SCREENING 06/16/2024 INFLUENZA VACCINE (Season Ended) 2025 04/13/2016, 04/19/2015, 04/14/2014, Additional history exists ZOSTER VACCINE (1 of 2) 2041 HIB [...] on patient's age to complete this topic Insurance Care Teams Mold Cleaning And Storage Supervisor Relationship Specialty Start Date End Date Joy Gardner APRN-CNP [address] [address] PCP - General 02/13/21
--- OUTSIDE RECORDS SUMMARY | 2024-10-01 16:16 | XMS_ITS | Encounter Summary ---
Author Organization [facility] Address [address] [place] [address] Care Team Providers Care Developer Advisor Name Role Phone Soren Mart MD Primary Care Provider [phone] Encounter Details Date Type Department Care Team (Late st Contact Info) Description 02/04/2006 Orders Only [facility] Internal Medicine [address] [address] Inge Hutson MD NO ADDRESS ON FILE Social History Tobacco Use Types Packs/Day Years Used Date Smoking Tobacco: Never Assessed Comments Unknown Sex and Gender Information Value Date Recorded Sex Assigned at Not on file Legal Sex Female 3:43 AM WESTERN PHILOSOPHY PROFESSOR Gender Identity Not on file Sexual Orientation Not on file documented as of this encounter Progress Notes * Inge Hutson MD - 03/24/2008 11:14 PM CDT TIME:01:35 pm PATIENT`S HOME PHONE: PATIENT`S WORK PHONE: PATIENT`S INSURANCE: [facility] [employer] [facility] WHO TOOK THE CALL: Amelia Lee R GENERAL INFORMATION ALTERNATIVE PHONE NUMBER: [phone]-Amelia WHO CALLED: Patient`s mother called. CURRENT ALLERGY LIST: NO KNOWN DRUG ALLERGY PHARMACY NUMBER: [phone] PROBLEMS: EARACHE: Patient complains of earache. The [...] on filedocumented in this encounter Care Teams Developer Advisor Relationship Specialty Start Date End Date Soren Mart MD PCP - General 02/10/09 documented as of this encounter
--- OUTSIDE RECORDS SUMMARY | 2024-10-01 16:16 | XMS_ITS | Encounter Summary ---
Author Organization [facility] Address [address] [place] [address] Care Team Providers Care Certification Officer Name Role Phone Soren Mart MD Primary Care Provider [phone] Encounter Details Date Type Department Care Team (Late st Contact Info) Description 01/16/2007 Orders Only [facility] Internal Medicine [address] [address] [place] [id number] [address] Social History Tobacco Use Types Packs/Day Years Used Date Smoking Tobacco: Never Assessed Comments Unknown Sex and Gender Information Value Date Recorded Sex Assigned at Not on file Legal Sex Female 3:43 AM SOLE SEWER HAND Gender Identity Not on file Sexual Orientation Not on file documented as of this encounter Progress Notes * Denny Mccormick MD - 11/03/2007 10:59 AM CDT TIME:04:12 pm PATIENT`S HOME PHONE: PATIENT`S WORK PHONE: PATIENT`S INSURANCE: [employer] WHO TOOK THE CALL: Amelia Lee R GENERAL INFORMATION WHO CALLED: Patient`s mother called. CURRENT ALLERGY LIST: NO KNOWN DRUG ALLERGY PROBLEMS: all x 2 weeks CONGESTION: Patient complains of sinus congestion, complains of head congestion, complains of chestcongestion, complains of nasal congestion. COUGH:Patient complains of cough. symptoms had improved some, but now rigo in head worse. SECTION 1: REQUESTED ACTION [facility] 01/16/07 at 04:13 pm: MEDICATION REQUEST: Patient wants medications and can not come in. DOCTOR`S RESPONSE: [facility] 01/16/07 at 04:[address] Mccormick MEDICATIONS: Call in to Pharmacy DIFLUCAN ORAL TABLET 150 MG, 1 Every Day, 1 Dispensed, status: NEW PRESCRIPTION, 01/16/2007. MEDROL (SANDRA) ORAL TABLET 4 MG, 1 PACKET ORAL DIRECTED, 1 Dispensed, status: NEW PRESCRIPTION, 01/16/2007. ZITHROMAX Z-SANDRA ORAL TABLET 250 MG, TAKE DIRECTED, 1 Dispensed, status: CONTINUED, 01/16/2007. also steam inhalations FINAL ACTION: [facility] 01/16/07 at 04:15 pm Spoke with patient 01/16/07 at 04:15 pm. mom printed script Electronically Signed by: Maribeth Sanchez on Friday, April 06, 2007 documented in this encounter Plan of Treatment Not on file documented as of this encounter Visit Diagnoses Not on filedocumented in this encounter Care Teams Certification Officer Relationship Specialty Start Date End Date Soren Mart MD PCP - General 02/10/09 documented as of this encounter
--- NOTE | 2024-10-01 16:17 | ECG_ITS ---
Test Date: 2024-10-01 16:26:07 Measurements Intervals [place] Rate: 86 P: 63 VT: 141 QRS: 11 QRSD: 101 T: 53 QT: 356 QTc: 427 Interpretive Statements SINUS RHYTHM BORDERLINE R WAVE PROGRESSION, ANTERIOR LEADS BASELINE ARTIFACT- I, II, III, AVR, AVL, AVF, V3 BORDERLINE ECG Compared to ECG 09/21/2024 00:31:00 HEART RATE HAS DECREASED Electronically Signed On 10-01-2024 16:29:58 CDT by Jc Chopra D.O.
--- NOTE | 2024-10-01 16:36 | ED_ITS ---
HPI - Chest Pain General Chief Complaint: Chest Pain <Gus Figueroa PA-C - Last Filed: 10/01/24 16:37> Stated Complaint: chest pain <Gus Figueroa PA-C - Last Filed: 10/01/24 16:37> Time Seen by Provider: 10/01/24 17:18 <Gus Figueroa PA-C - Last Filed: 10/01/24 16:37> Focused HPI: This is a 34-year-old female who is approximately 2-3 weeks and current diagnosis of preeclampsia presenting to the ED for chest pain starting today. Reports pain central to the chest and does not radiate. States that she has had some lightheadedness but no syncope. Denies headache or abdominal pain. Denies nausea, vomiting. States she is currently on 2 antihypertensives. GENERAL: Well-appearing, well-nourished, and in no acute distress. HEAD: Normocephalic, atraumatic. CHEST: Clear to auscultation. No respiratory distress. HEART: Regular rate and rhythm. NEURO: Alert and oriented x3. Patient screened in triage and initial orders placed. Additional care and disposition to be based upon diagnostic testing and treatment. <Gus Figueroa PA-C - Last Filed: 10/01/24 16:37> Source: patient <Gus Figueroa PA-C - Last Filed: 10/01/24 16:37> Mode of arrival: ambulatory <Gus Figueroa PA-C - Last Filed: 10/01/24 16:37> Limitations: no limitations <HOWARD Mullen Last Filed: 10/01/24 16:37> Related Data Allergies/Adverse Reactions: Allergies Allergy/AdvReac Type Severity Reaction Status Date / Time No Known Allergies Allergy Verified 10/01/24 16:17 <Gus Figueroa PA-C - Last Filed: 10/01/24 16:37> Review of Systems 2 Review of Systems: All systems reviewed & are unremarkable except as noted in HPI and below <Amy Pinon PA-C - Last Filed: 10/01/24 23:24> PMFSH Past Medical History Medical History: Medical History History of pre-eclampsia in prior , currently Genital warts due to HPV (human papillomavirus) Abnormal Pap smear of cervix delivery delivered Thoracic outlet syndrome GERD (gastroesophageal reflux disease) Anxiety <Gus Figueroa PA-C - Last Filed: 10/01/24 16:37> Surgical History Surgical History: Surgical History Armbrust teeth extracted H/O colposcopy with cervical biopsy <HOWARD Mullen Last Filed: 10/01/24 16:37> Family History Family History: Family History Mother Diabetes mellitus Father Heart disease Diabetes mellitus Hypertension Grandparent Cancer <HOWARD Mullen Last Filed: 10/01/24 16:37> Social History Social History: Social History Smoking status: Never smoker Alcohol intake: never Substance use: never Substance use type: does not use Do You Feel Safe in your Home?: Yes Lack of Transportation: No Lack of Food: Never True Current Housing: I Have Housing Concerned About Future Housing: No Difficulty Paying Gas/Electric Bills: No Difficulty Paying for Meds: No Currently Unemployed: No Education: Associate Degree Difficulty w/ Childcare or Family Care: No Spiritual care concerns: No <HOWARD Mullen Last Filed: 10/01/24 16:37> Exam 2 Narrative: GENERAL: Well-appearing, well-nourished, and in no acute distress. HEAD: Normocephalic, atraumatic. EYES: EOMI. CHEST: Clear to auscultation. No respiratory distress. No wheezes rales or rhonchi HEART: Regular rate and rhythm. No murmur heard. Normal peripheral pulses. ABDOMEN: Soft, nontender, nondistended, normal active bowel sounds. EXTREMITIES: Normal range of motion. No edema. SKIN: Warm, dry, no rash. NEURO: No focal deficits. Alert and oriented x3. PSYCH: Normal mood and affect <HOWARD Cardenas Last Filed: 10/01/24 23:24> Course Course Emergency Course: patient updated on her workup, resting, agrees with plan of care <HOWARD Cardenas Last Filed: 10/01/24 23:24> Consultations Consultation #1: Spoke with patient's OB about her workup. She may follow up in clinic < HOWARD Cardenas Last Filed: 10/01/24 23:24> Date: 10/01/24 <HOWARD Cardenas Last Filed: 10/01/24 23:24> Vital Signs Vital signs: Vital Signs Temperature 98.0 F 10/01/24 16:27 Pulse Rate 86 10/01/24 16:27 Respiratory Rate 17 10/01/24 16:27 Blood Pressure 144/95 H 10/01/24 16:27 Pulse Oximetry 100 10/01/24 16:27 Temperature 98.0 F 10/01/24 16:27 Pulse Rate 71 10/01/24 22:01 Respiratory Rate 14 10/01/24 22:01 Blood Pressure 124/77 10/01/24 22:01 Pulse Oximetry 98 10/01/24 22:01 Oxygen Delivery Room Air 10/01/24 17:15 <HOWARD Mullen Last Filed: 10/01/24 16:37> Vital Signs Temperature 98.0 F 10/01/24 16:27 Pulse Rate 86 10/01/24 16:27 Respiratory Rate 17 10/01/24 16:27 Blood Pressure 144/95 H 10/01/24 16:27 Pulse Oximetry 100 10/01/24 16:27 Temperature 98.0 F 10/01/24 16:27 Pulse Rate 71 10/01/24 22:01 Respiratory Rate 14 10/01/24 22:01 Blood Pressure 124/77 10/01/24 22:01 Pulse Oximetry 98 10/01/24 22:01 Oxygen Delivery Room Air 10/01/24 17:15 <HOWARD Cardenas Last Filed: 10/01/24 23:24> MDM - Chest Pain MDM Narrative Medical decision making narrative: Patient presents to the emergency department for chest pain. Currently about 2 weeks . Blood pressure elevated the 140 systolic upon arrival, this down trended without intervention. Most recent blood pressures in the 110s to 120 systolic. CBC with leukocytosis to 11.2. Administer were. Metabolic panel and lipase without concerning findings. Urine with possible evidence of infection. Patient does endorse urinary symptoms. Will be started on oral antibiotic. EKG without acute ST changes, baseline and 3 hour troponin are negative. CTA chest obtained for further evaluation. No PE or acute cardiopulmonary abnormality. Patient updated on her workup, resting comfortably, agrees with plan of care. She was given warnings to return to the ER <Amy Pinon PA-C - Last Filed: 10/01/24 23:24> Differential Diagnosis Differential diagnosis: Likely stable angina, atypical chest pain, costochondritis and other (Stress, anxiety, pulmonary embolism, pneumonia, hypertension, gestational hypertension, preeclampsia) <Amy Pinon PA-C - Last Filed: 10/01/24 23:24> Lab Data Attestation: I reviewed the patient's lab results. <HOWARD Cardenas Last Filed: 10/01/24 23:24> Result diagrams: 10/01/24 16:33 10/01/24 16:33 <HOWARD Mullen Last Filed: 10/01/24 16:37> Labs: Lab Results 10/01/24 10/01/24 10/01/24 Range/Units 16:33 19:02 19:19 WBC 11.2 H (4.5-10.0) K/mm3 RBC 3.55 L (4.2-5.4) M/mm3 Hgb 10.5 L (12.0-15.0) g/dL Hct 34.3 L (37.0-47.0) % MCV 96.6 (80-100) fl MCH 29.6 (26-34) pg MCHC 30.6 L (32-36) g/dl RDW 13.5 (11.5-14.5) % Plt Count 385 H (150-375) k/mm3 MPV 9.1 (7.4-10.4) fl Immature Gran % (Auto) 0.4 (0-0.5) % Neut % (Auto) 55.9 (45.5-73.1) % Lymph % (Auto) 34.7 (18.3-44.2) % Treasure % (Auto) 5.8 (2.6-8.5) % Eos % (Auto) 2.8 (0-4.4) % Baso % (Auto) 0.4 (0.2-1.2) % Lymph # (Auto) 3.90 H (0.9-3.2) K/mm3 Treasure # (Auto) 0.7 H (0.1-0.6) K/mm3 Eos # (Auto) 0.3 (0-0.3) K/mm3 Baso # (Auto) 0.1 (0.0-0.1) K/mm3 Abs Immat Gran (auto) 0.04 H (0.00-0.031) K/mm3 Absolute Neuts (auto) 6.3 (1.3-6.7) K/mm3 Absolute Nucleated RBC 0.000 (0.0-0.012) K/mm3 Nucleated RBC % 0.0 (0.0-0.2) % PT 13.0 (11.1-14.7) Seconds INR 1.0 APTT 25.9 (22.3-36.8) Seconds Sodium 139 (137-145) mmol/L Potassium 3.6 (3.4-5.0) mmol/L Chloride 106 (98-107) mmol/L Carbon Dioxide 22 (22-30) mmol/L Anion Gap 11 (4-12) mmol/L BUN 15 (7-17) mg/dL Creatinine 1.00 (0.7-1.0) mg/dL Estim Creat Clear Calc Not Reportable Estimated GFR > 60 (59 - ) Glucose 111 H (65-110) mg/dL Uric Acid 5.3 (2.5-7.5) mg/dL Calcium 8.8 (8.4-10.2) mg/dL Magnesium 2.0 (1.6-2.3) mg/dL Total Bilirubin 0.2 (0.2-1.3) mg/dL AST 19 (14-36) U/L ALT 15 (6-35) U/L Alkaline Phosphatase 80 (38-126) U/L Troponin I < 0.012 < 0.012 (0.000-0.034) ng/mL Total Protein 7.0 (6.3-8.2) g/dL Albumin 3.9 (3.5-5.1) g/dL Lipase 165 (23-300) U/L Urine Color Yellow (Yellow) Urine Appearance Cloudy H (Clear) Urine pH 5.5 (5.0-9.0) Ur Specific Douglass 1.034 (1.001-1.035) Urine Protein Trace (Negative) mg/dL Urine Glucose (UA) Negative (Negative) mg/dL Urine Ketones Negative (Negative) mg/dL Ur Blood (Man) 2+ H (Negative) Urine Nitrate Negative (Negative) Urine Bilirubin Negative (Negative) Urine Urobilinogen 1.0 (<2.0) mg/dL Leukocyte Esterase Rfl 2+ H (Negative) CINDY/UL Urine RBC 6-10 H (0-2) /hpf Urine WBC >100 H (0-3) /hpf Ur Squamous Epith Cells None seen (Few) /hpf Urine Bacteria None seen /hpf Urine Casts 0-2 <Gus Figueroa PA-C - Last Filed: 10/01/24 16:37> Lab Results 10/01/24 10/01/24 10/01/24 Range/Units 16:33 19:02 19:19 WBC 11.2 H (4.5-10.0) K/mm3 RBC 3.55 L (4.2-5.4) M/mm3 Hgb 10.5 L (12.0-15.0) g/dL Hct 34.3 L (37.0-47.0) % MCV 96.6 (80-100) fl MCH 29.6 (26-34) pg MCHC 30.6 L (32-36) g/dl RDW 13.5 (11.5-14.5) % Plt Count 385 H (150-375) k/mm3 MPV 9.1 (7.4-10.4) fl Immature Gran % (Auto) 0.4 (0-0.5) % Neut % (Auto) 55.9 (45.5-73.1) % Lymph % (Auto) 34.7 (18.3-44.2) % Treasure % (Auto) 5.8 (2.6-8.5) % Eos % (Auto) 2.8 (0-4.4) % Baso % (Auto) 0.4 (0.2-1.2) % Lymph # (Auto) 3.90 H (0.9-3.2) K/mm3 Treasure # (Auto) 0.7 H (0.1-0.6) K/mm3 Eos # (Auto) 0.3 (0-0.3) K/mm3 Baso # (Auto) 0.1 (0.0-0.1) K/mm3 Abs Immat Gran (auto) 0.04 H (0.00-0.031) K/mm3 Absolute Neuts (auto) 6.3 (1.3-6.7) K/mm3 Absolute Nucleated RBC 0.000 (0.0-0.012) K/mm3 Nucleated RBC % 0.0 (0.0-0.2) % PT 13.0 (11.1-14.7) Seconds INR 1.0 APTT 25.9 (22.3-36.8) Seconds Sodium 139 (137-145) mmol/L Potassium 3.6 (3.4-5.0) mmol/L Chloride 106 (98-107) mmol/L Carbon Dioxide 22 (22-30) mmol/L Anion Gap 11 (4-12) mmol/L BUN 15 (7-17) mg/dL Creatinine 1.00 (0.7-1.0) mg/dL Estim Creat Clear Calc Not Reportable Estimated GFR > 60 (59 - ) Glucose 111 H (65-110) mg/dL Uric Acid 5.3 (2.5-7.5) mg/dL Calcium 8.8 (8.4-10.2) mg/dL Magnesium 2.0 (1.6-2.3) mg/dL Total Bilirubin 0.2 (0.2-1.3) mg/dL AST 19 (14-36) U/L ALT 15 (6-35) U/L Alkaline Phosphatase 80 (38-126) U/L Troponin I < 0.012 < 0.012 (0.000-0.034) ng/mL Total Protein 7.0 (6.3-8.2) g/dL Albumin 3.9 (3.5-5.1) g/dL Lipase 165 (23-300) U/L Urine Color Yellow (Yellow) Urine Appearance Cloudy H (Clear) Urine pH 5.5 (5.0-9.0) Ur Specific Douglass 1.034 (1.001-1.035) Urine Protein Trace (Negative) mg/dL Urine Glucose (UA) Negative (Negative) mg/dL Urine Ketones Negative (Negative) mg/dL Ur Blood (Man) 2+ H (Negative) Urine Nitrate Negative (Negative) Urine Bilirubin Negative (Negative) Urine Urobilinogen 1.0 (<2.0) mg/dL Leukocyte Esterase Rfl 2+ H (Negative) CINDY/UL Urine RBC 6-10 H (0-2) /hpf Urine WBC >100 H (0-3) /hpf Ur Squamous Epith Cells None seen (Few) /hpf Urine Bacteria None seen /hpf Urine Casts 0-2 <Amy Pinon PA-C - Last Filed: 10/01/24 23:24> Imaging Data Radiologist's impression: ITS Impressions Chest X-Ray 10/01/24 17:00 IMPRESSION: No acute cardiopulmonary pathology. Chest CTA 10/01/24 20:43 IMPRESSION: 1. No pulmonary embolism. 2. No acute cardiopulmonary <Amy Pinon PA-C - Last Filed: 10/01/24 23:24> ECG Data EKG #1: ECG completion date: 10/01/24 <Amy Pinon PA-C - Last Filed: 10/01/24 23:24> EKG Interpretation: normal rate, sinus rhythm and no ST changes <Amy Pinon PA-C - Last Filed: 10/01/24 23:24> Critical Care Time Critical Care Time Critical Care Time: No <HOWARD Cardenas Last Filed: 10/01/24 23:24> Discharge Plan Discharge Clinical Impression: Atypical chest pain, Acute UTI <HOWARD Mullen Last Filed: 10/01/24 16:37> Patient Disposition: Home <HOWARD Mullen Last Filed: 10/01/24 16:37> Condition: Stable <HOWARD Mullen Last Filed: 10/01/24 16:37> Instructions: Chest Pain (ED), Urinary Tract Infection in Women (ED) <HOWARD Mullen Last Filed: 10/01/24 16:37> Additional Instructions: Return to the emergency department if you experience fever, worsening chest pain, shortness of breath, abdominal pain with nausea and vomiting, weakness, numbness, or any other symptoms that are concerning to you. Take your home medications as prescribed. Continue to monitor your blood pressure Follow up with your primary care doctor and OB <Gus Figueroa PA-C - Last Filed: 10/01/24 16:37> Patient Language: [place] <Gus Figueroa PA-C - Last Filed: 10/01/24 16:37> Prescriptions: New cephalexin 500 mg capsule 500 mg PO Q12H 5 Days Qty: 10 0RF cyclobenzaprine 5 mg tablet 5 mg PO TID PRN (Reason: muscle spasm) Qty: 10 0RF No Action escitalopram oxalate [Lexapro] 5 mg tablet 5 mg PO DAILY Qty: 30 1RF medroxyprogesterone [Depo-Provera] 150 mg/mL suspension 150 mg IM [id number] Qty: 1 4RF ibuprofen 600 mg Tablet 600 mg PO Q6H Qty: 20 0RF nifedipine [Procardia XL] 30 mg Tablet Extended Release 24hr 30 mg PO QAM Qty: 30 0RF buspirone 10 mg Tablet 10 mg PO BID Qty: 60 0RF labetalol 100 mg Tablet 200 mg PO Q12HR Qty: 60 0RF <Gus Figueroa PA-C - Last Filed: 10/01/24 16:37> Follow-up/Referrals: UNKNOWN,DOCTOR [Primary Care Provider] - <Gus Figueroa PA-C - Last Filed: 10/01/24 16:37> Quality HEART score for chest pain patients History: slightly suspicious <Amy Pinon PA-C - Last Filed: 10/01/24 23:24> ECG: normal <HOWARD Cardenas Last Filed: 10/01/24 23:24> Age: < or = to 45 years <HOWARD Cardenas Last Filed: 10/01/24 23:24> Risk factors: 1 or 2 risk factors <HOWARD Cardenas Last Filed: 10/01/24 23:24> Troponin: < or = to 1x normal limit <Amy Pinon PA-C - Last Filed: 10/01/24 23:24> Heart score: 1 <Amy Pinon PA-C - Last Filed: 10/01/24 23:24>
[2024-10-01 16:39] LABS: Basophils Absolute Auto 0.1 K/mm3 (0.0-0.1); Basophils Percent Auto 0.4 % (0.2-1.2); Eosinophils Absolute Auto 0.3 K/mm3 (0-0.3); Eosinophils Percent Auto 2.8 % (0-4.4); Hematocrit 34.3 % (37.0-47.0); Hemoglobin 10.5 g/dL (12.0-15.0); Immature Granulocyte Absolute 0.04 K/mm3 (0.00-0.031); Immature Granulocyte Percent A 0.4 % (0-0.5); Lymphocytes Percent Auto 34.7 % (18.3-44.2); Mean Corpuscular HGB Conc 30.6 g/dl (32-36); Mean Corpuscular Hemoglobin 29.6 pg (26-34); Mean Corpuscular Volume 96.6 fl (80-100); Mean Platelet Volume 9.1 fl (7.4-10.4); Monocytes Absolute Auto 0.7 K/mm3 (0.1-0.6); Monocytes Percent Auto 5.8 % (2.6-8.5); Neutrophils Absolute Auto 6.3 K/mm3 (1.3-6.7); Neutrophils Percent Auto 55.9 % (45.5-73.1); Platelet Count Result 385 k/mm3 (150-375); Red Blood Count 3.55 M/mm3 (4.2-5.4); Red Cell Distribution Width 13.5 % (11.5-14.5); White Blood Count 11.2 K/mm3 (4.5-10.0)
[2024-10-01 16:50] LABS: Alanine Aminotransferase 15 U/L (6-35); Albumin Level 3.9 g/dL (3.5-5.1); Alkaline Phosphatase 80 U/L (38-126); Anion Gap 11 mmol/L (4-12); Aspartate Amino Transferase 19 U/L (14-36); Bilirubin,Total 0.2 mg/dL (0.2-1.3); Blood Urea Nitrogen 15 mg/dL (7-17); Calcium 8.8 mg/dL (8.4-10.2); Carbon Dioxide 22 mmol/L (22-30); Chloride 106 mmol/L (98-107); Estimated Glomerular Filt Rate > 60; Glucose 111 mg/dL (65-110); Lipase 165 U/L (23-300); Potassium 3.6 mmol/L (3.4-5.0); Sodium 139 mmol/L (137-145); Uric Acid 5.3 mg/dL (2.5-7.5)
[2024-10-01 16:53] LABS: Partial Thromboplastin Time 25.9 Seconds (22.3-36.8)
[2024-10-01 17:02] LABS: Troponin I < 0.012 ng/mL (0.000-0.034)
--- NOTE | 2024-10-01 17:21 | PC.NURSE ---
Asked pt if she felt she could give urine sample. Pt states she is unable to at this time. Will use call light when she feels she can go.
--- OUTSIDE RECORDS SUMMARY | 2024-10-01 17:32 | XMS_ITS | Clinical Summary ---
Author Organization [facility] Address [address] [place] [address] Care Team Providers Care Cutter Machine Tender Name Role Phone Joy Gardner GWEN-FUNERAL SALES MANAGER Primary Care Provider + Source Comments [facility],non-owned Affiliates and Associated Physician Practices is amultiple site organization consisting of ambulatory clinics and hospital sitesin [place], [place], [place] and [place]. This disclosure is being madepursuant to the Care Everywhere program and may not contain all information available regarding this patient. Last updated 18.[facility] [employer] Allergies No known active allergies Medications * [...] LURIA, FLUZONE TRIVALENT; 6MO+) (IIV3) 04/13/2016,04/14/2014,05/21/2010 Covid Erydel primary monoval ent 12+ yr 0.3mL Purple [...] to complete this topic Insurance Care Teams Cutter Machine Tender Relationship Specialty Start Date End Date Joy Gardner APRN-CNP [address] [address] PCP - General 02/13/21
--- OUTSIDE RECORDS SUMMARY | 2024-10-01 17:32 | XMS_ITS | Encounter Summary ---
Author Organization [facility] Address 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
--- OUTSIDE RECORDS SUMMARY | 2024-10-01 17:32 | XMS_ITS | Encounter Summary ---
Author Organization [facility] Address [address] [place] [address] Care Team Providers Care Material Disposition Inspector Name Role Phone Soren Mart MD Primary Care Provider [phone] Encounter Details Date Type Department Care Team (Late st Contact Info) Description 01/15/2006 Outpatient Historical [facility] Internal Medicine [address] [address] Inge Hutson MD NO ADDRESS ON FILE Social History Tobacco Use Types Packs/Day Years Used Date Smoking Tobacco: Never Assessed Comments Unknown Sex and Gender Information Value Date Recorded Sex Assigned at Not on file Legal Sex Female 3:43 AM PARIMUTUEL TICKET SELLER Gender Identity Not on file Sexual Orientation Not on file documented as of this encounter Plan of Treatment Not on file documented as of this encounter Visit Diagnoses Not on filedocumented in this encounter Care Teams Material Disposition Inspector Relationship Specialty Start Date End Date Soren Mart MD PCP - General 02/10/09 documented as of this encounter
--- OUTSIDE RECORDS SUMMARY | 2024-10-01 17:33 | XMS_ITS | Encounter Summary ---
Author Organization [facility] Address [address] [place] [address] Care Team Providers Care Loss Prevention Investigator Name Role Phone Soren Mart MD Primary Care Provider Encounter Details Date Type Department Care Team (Latest Contact Info) Description 02/06/2009 Outpatient Historical [facility] Soren Mart MD [address] [place] [id number] Head Injury, Unspecified Social History Tobacco Use Types Packs/Day Years Used Date Smoking Tobacco: Never Alcohol Use Standard Drinks/Week Comments Not Asked 0 (1 standard drink = 0.6 oz pur e alcohol) Comments No Sex and Gender Information Value Date Recorded Sex Assigned at Not on file 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
--- OUTSIDE RECORDS SUMMARY | 2024-10-01 17:33 | XMS_ITS | Encounter Summary ---
Author Organization [facility] Address [address] [place] [address] Care Team Providers Care Talent Development Specialist Name Role Phone Soren Mart MD Primary Care Provider [phone] Encounter Details Date Type Department Care Team (Latest Contact Info) Description 03/14/2005 Outpatient Historical [facility] BLDG Conversion, History CHEST PAIN NEC (Primary Dx) Social History Tobacco Use Types Packs/Day Years Used Date Smoking Tobacco: Never Assessed Comments Unknown Sex and Gender Information Value Date Recorded Sex Assigned at Not on file Legal Sex Female 3:43 AM MAGNAFLUX OPERATOR Gender Identity Not on file Sexual [...] ORDERABLES Final R esult Performing Organization Address City/[facility] de Phone Number INTERFACE [...] ORDERABLES Final R esult Performing Organization Address City/[facility] de Phone Number INTERFACE [...] Primary documented in this encounter Care Teams Talent Development Specialist Relationship Specialty Start Date End Date Soren Mart MD PCP - General 02/10/09 documented as of this encounter
--- OUTSIDE RECORDS SUMMARY | 2024-10-01 17:33 | XMS_ITS | Encounter Summary ---
Author Organization [facility] Address 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
--- OUTSIDE RECORDS SUMMARY | 2024-10-01 17:33 | XMS_ITS | Encounter Summary ---
Author Organization [facility] Address [address] [place] [address] Care Team Providers Care Cylinder Block Hole Reliner Name Role Phone Soren Mart MD Primary Care Provider [phone] Encounter Details Date Type Department Care Team (Late st Contact Info) Description 04/30/2006 Orders Only [facility] Internal Medicine [address] [address] Inge Hutson MD NO ADDRESS ON FILE Social History Tobacco Use Types Packs/Day Years Used Date Smoking Tobacco: Never Assessed Comments Unknown Sex and Gender Information Value Date Recorded Sex Assigned at Not on file Legal Sex Female 3:43 AM COMMUNITY RELATIONS REP Gender Identity Not on file Sexual Orientation [...] was cleaned by lighting with a cigarette public relations supervisor, this ring was also used beforehand by [...] as to visualizeTM. LAB ORDERS: Order number: [id number] Test Ordered: REMOVE CERUMEN IMPACT [id number] 682.0-OTHER CELLULITIS AND ABSCESS ASSESSMENT: advised warm [...] on filedocumented in this encounter Care Teams Cylinder Block Hole Reliner Relationship Specialty Start Date End Date Soren Mart MD PCP - General 02/10/09 documented as of this encounter
--- OUTSIDE RECORDS SUMMARY | 2024-10-01 17:33 | XMS_ITS | Encounter Summary ---
Author Organization [facility] Address 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
--- OUTSIDE RECORDS SUMMARY | 2024-10-01 17:33 | XMS_ITS | Encounter Summary ---
Author Organization [facility] Address 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 CURRENT ALLERGY LIST: NO KNOWN DRUG ALLERGY PHARMACY NUMBER: [phone] PROBLEMS: feeling bad , achy FEVER: Patient [...] on filedocumented in this encounter Care Teams Inspector Printed Circuit Boards Relationship Specialty Start Date End Date Soren Mart MD PCP - General 02/10/09 documented as of this encounter
--- OUTSIDE RECORDS SUMMARY | 2024-10-01 17:33 | XMS_ITS | Encounter Summary ---
Author Organization [employer] Address [address] [place] [address] Care Team Providers Care Assembly Machine Set Up Mechanic Name Role Phone Soren Mart MD Primary Care Provider [phone] Encounter Details Date Type Department Care Team [...] file Legal Sex Female 3:43 AM HEAD PACKAGER Gender Identity Not on file Sexual Orientation Not on file documented as of this encounter Plan of Treatment Not on file documented as of this encounter Visit Diagnoses Diagnosis Pain in joint, ankle and foot- Primary documented in this encounter Care Teams Assembly Machine Set Up Mechanic Relationship Specialty Start Date End Date Soren Mart MD PCP - General 02/10/09 documented as of this encounter
--- OUTSIDE RECORDS SUMMARY | 2024-10-01 17:33 | XMS_ITS | Encounter Summary ---
Author Organization [facility] Address 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
--- OUTSIDE RECORDS SUMMARY | 2024-10-01 17:33 | XMS_ITS | Encounter Summary ---
Author Organization [facility] Address [address] [place] [address] Care Team Providers Care Mucker Operator Name Role Phone Soren Mart MD Primary Care Provider [phone] Encounter Details Date Type Department Care Team (Late st Contact Info) Description 06/04/2006 Orders Only [facility] Internal Medicine [address] [address] Inge Hutson MD NO ADDRESS ON FILE Social History Tobacco Use Types Packs/Day Years Used Date Smoking Tobacco: Never Assessed Comments Unknown Sex and Gender Information Value Date Recorded Sex Assigned at Not on file Legal Sex Female 3:[address] MAGISTRATE Gender Identity Not on file Sexual Orientation [...] NEW PRESCRIPTION, 06/04/2006. LAB ORDERS: Order number: [id number] Test Ordered: HEMOCCULT SINGLE [id number] + PATIENT EDUCATION: Questions were allowed to stated satisfaction. PREVENTIVE COUNSELING The patient was counseled regarding diet. RETURN VISIT : please waive todays co-pay Electronically Signed by: Inge Hutson MD on Wednesday, June 07, 2006 documented in this encounter Plan of Treatment Not on file documented as of this encounter Visit Diagnoses Not on filedocumented in this encounter Care Teams Mucker Operator Relationship Specialty Start Date End Date Soren Mart MD PCP - General 02/10/09 documented as of this encounter
--- OUTSIDE RECORDS SUMMARY | 2024-10-01 17:33 | XMS_ITS | Encounter Summary ---
Author Organization [email or web address] Address [address] [place] [address] Care Team Providers Care Assemblyman Or Woman Name Role Phone Soren Mart MD Primary Care Provider [phone] Encounter Details Date Type Department Care Team (Latest Contact Info) Description 04/27/2008 Outpatient Historical [facility] [place] Conversion, History Urinary Tract Infection, Site not Specified Social History Tobacco Use Types Packs/Day Years Used Date Smoking Tobacco: Never Assessed Comments Unknown Sex and Gender Information Value Date Recorded Sex Assigned at Not on file Legal Sex Female 3:43 AM ACCOUNT SERVICES MANAGER Gender Identity Not on file Sexual Orientation Not on file documented as of this encounter Plan of Treatment Not on file documented as of this encounter Procedures Procedure Name Priority Date/Time Associated Diagnosis Comments CHLAMYDIA/N. GONORRHOEAE, DNA Routine 04/27/2008 7:34 PM ACCOUNT SERVICES MANAGER URINE CULTURE Routine 04/27/2008 7:34 PM ACCOUNT SERVICES MANAGER documented in this encounter Results * URINE CULTURE (04/27/2008 7:34 PM ACCOUNT SERVICES MANAGER) FINAL REPORT 50-100,000 colonies/mL Escherichia coli <10,000 colonies/mL Streptococcus Group B -NOTE: In women, recovery of Group B Streptococcus may be significant. However, in non- women, recovery in small quantities suggests contamination with blue urethral maureen. Normal urethral maureen also present. - Phoned report (with read back verified) to [facility] () 04/29/08 10:43:23 -- Faxed report(s): [phone] [facility] SUSCEPTIBILITY PERFORMED ON ESCHERICHIA COLI [facility] 04/27/2008 7:34 PM ACCOUNT SERVICES MANAGER 04/27/2008 8:27 PM ACCOUNT SERVICES MANAGER Narrative Organism Antibiotic Method Susceptibility Escherichia coli [...] Performing Organization Address City/[facility]/ZIP Co de Phone Number INTERFACE SYSTEM Refer to clinic/hospital department [facility] CLIA# [id number] [address] [place] [address] * CHLAMYDIA/N. GONORRHOEAE, DNA (04/27/2008 7:34 PM ACCOUNT SERVICES MANAGER) CHLAMYDIA TRACHOMATIS DNA NOT DETECTED NOT DETECTED [facility] NEISSERIA GONORRHOEAE DNA NOT DETECTED NOT DETECTED [facility] Comment: Lab test performed by: [facility] [place] [address] [address] ZURDO FIGUEROA MD Specimen of unknown material (specimen) URINE SPECIMEN / Unknown 04/27/2008 7:34 PM ACCOUNT SERVICES MANAGER 04/27/2008 8:08 PM ACCOUNT SERVICES MANAGER us History Conversion BODY FLUIDS AND STOOLS Final Result Performing Organization Address City/[facility]/ZIP Co de Phone Number INTERFACE SYSTEM Refer to clinic/hospital department [facility] CLIA# [id number] [address] [place] [address] documented in this encounter Visit Diagnoses Diagnosis Urinary tract infection, site not specified documented in this encounter Care Teams Assemblyman Or Woman Relationship Specialty Start Date End Date Soren Mart MD PCP - General 02/10/09 documented as of this encounter
--- OUTSIDE RECORDS SUMMARY | 2024-10-01 17:33 | XMS_ITS | Encounter Summary ---
Author Organization [facility] Address 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 CURRENT ALLERGY LIST: NO KNOWN DRUG ALLERGY PHARMACY NUMBER: [phone] PROBLEMS: CONGESTION: Patient complains of congestion. COUGH:Patient [...] on filedocumented in this encounter Care Teams Chain Saw Mechanic Relationship Specialty Start Date End Date Soren Mart MD PCP - General 02/10/09 documented as of this encounter
--- OUTSIDE RECORDS SUMMARY | 2024-10-01 17:33 | XMS_ITS | Encounter Summary ---
Author Organization [facility] Address [address] [place] [address] Care Team Providers Care Epic Ambulatory Analysts Name Role Phone Soren Mart MD Primary Care Provider Encounter Details Date Type Department Care Team (Late st Contact Info) Description 04/24/2007 Orders Only [facility] Internal Medicine [address] [address] Inge Hutson MD NO ADDRESS ON FILE Social History Tobacco Use Types Packs/Day Years Used Date Smoking Tobacco: Never Assessed Comments Unknown Sex and Gender Information Value Date Recorded Sex Assigned at Not on file Legal Sex Female 3:43 AM CUSHION GUM APPLICATOR Gender Identity Not on file Sexual Orientation Not on file documented as of this encounter Progress Notes * Inge Hutson MD - 10/29/2007 5:13 PM CDT TIME:02:07 pm PATIENT`S HOME PHONE: PATIENT`S WORK PHONE: PATIENT`S INSURANCE: [facility] [email or web address] [facility] WHO TOOK THE CALL: Amelia Lee R GENERAL INFORMATION ALTERNATIVE PHONE NUMBER: [phone] WHO CALLED: Patient`s mother called.Carly Cisneros CURRENT [...] on filedocumented in this encounter Care Teams Epic Ambulatory Analysts Relationship Specialty Start Date End Date Soren Mart MD PCP - General 02/10/09 documented as of this encounter
--- OUTSIDE RECORDS SUMMARY | 2024-10-01 17:33 | XMS_ITS | Encounter Summary ---
Author Organization [employer] Address 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
--- OUTSIDE RECORDS SUMMARY | 2024-10-01 17:33 | XMS_ITS | Encounter Summary ---
Author Organization [facility] Address 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 [email or web address] [facility] WHO TOOK THE CALL: Amelia Lee R GENERAL INFORMATION ALTERNATIVE PHONE NUMBER: [phone]-Amelia WHO CALLED: Patient`s mother called. CURRENT ALLERGY LIST: NO KNOWN DRUG ALLERGY PHARMACY NUMBER: [phone] PROBLEMS: EARACHE: Patient complains of earache. The [...] on filedocumented in this encounter Care Teams Orange Picking Supervisor Relationship Specialty Start Date End Date Soren Mart MD PCP - General 02/10/09 documented as of this encounter
--- OUTSIDE RECORDS SUMMARY | 2024-10-01 17:33 | XMS_ITS | Encounter Summary ---
Author Organization [employer] Address [address] [place] [address] Care Team Providers Care Bilingual Social Worker Name Role Phone Soren Mart MD Primary Care Provider [phone] Encounter Details Date Type Department Care Team (Late st Contact Info) Description 09/22/2008 Outpatient Historical [facility] Elmo Reich MD [address] [place] [address] Social History Tobacco Use Types Packs/Day Years Used Date Smoking Tobacco: Never Assessed Comments Unknown Sex and Gender Information Value Date Recorded Sex Assigned at Not on file Legal Sex Female 3:43 AM HEALTH OUTCOMES LIAISON Gender Identity Not on file Sexual Orientation [...] AM CDT Narrative 10/01/2008 11:40 AM CDT [address] [address] [place], [place] [address] Admit Date: 09/23/2008 ANNI BRYANT Sex: F Admit Prov: ELMO REICH Date: 1990 Primary Care Prov: CMRN: [id number] Room: SURG-A N: [id number] IMAGING SERVICES Ordering Prov: ELMO REICH Accession Number: [id number] Interpretation Fluoroscopic guidance was used by the surgeon to assist with performance of this intra-operative procedure. Please refer to surgeon s operative report for specific details. Dictated by: RADIOLOGY, DEPARTMENT O Electronically signed by: RADIOLOGY, DEPARTMENT 10/01/2008 11:39 Transcribed: 10/01/2008 07:42 AMK Procedure Note Radiology, Radiologist - 10/01/2008 [address] [address] [address] [place], [place] [address] Admit Date: 09/23/2008 ANNI BRYANT Sex: F Admit Prov: ELMO REICH Date: 1990 Primary Care Prov: CMRN: [id number] [id number] IMAGING SERVICES Ordering Prov: ELMO REICH Interpretation [...] AM CDT) , URINE POC Negative Negative [facility] Urine specimen (specimen) 09/23/2008 10:00 AM CDT 09/23/2008 10:00 AM CDT Elmo Reich MD POINT OF CARE TESTING Final Re sult Performing Organization Address City/[facility] de Phone Number INTERFACE SYSTEM Refer to clinic/hospital department [facility] CLIA# [id number] [address] [place] [address] * HEMOGLOBIN AND HEMATOCRIT (09/23/2008 9:50 AM CDT) HEMOGLOBIN 12.3 11.8 - 14.8 g/dL [facility] HEMATOCRIT 37.5 35.5 - 44.0 % [facility] Blood specimen (specimen) 09/23/2008 9:50 AM CDT 09/23/2008 10:05 AM CDT Narrative INTERFACE SYSTEM - 09/23/2008 10:15 AM CDT room 6 Elmo Reich MD HEMATOLOGY ORDERABLES Final Re sult Performing Organization Address [facility] Phone Number INTERFACE SYSTEM Refer to clinic/hospital department [facility] CLIA# [id number] [address] [place] [address] documented in this encounter Visit Diagnoses Not on filedocumented in this encounter Care Teams Bilingual Social Worker Relationship Specialty Start Date End Date Soren Mart MD PCP - General 02/10/09 documented as of this encounter
--- OUTSIDE RECORDS SUMMARY | 2024-10-01 17:33 | XMS_ITS | Encounter Summary ---
Author Organization [employer] Address [address] [place] [address] Care Team Providers Care Wire Transfer Clerk Name Role Phone Soren Mart MD Primary Care Provider Encounter Details Date Type Department Care Team (Late st Contact Info) Description 03/14/2005 Outpatient Historical [facility] (Peds Cardiology-[facility]) [address] [facility] [place] [address] Warner Flores MD NO ADDRESS ON FILE Social History Tobacco Use Types Packs/Day Years Used Date Smoking Tobacco: Never Assessed Comments Unknown Sex and Gender Information Value Date Recorded Sex Assigned at Not on file Legal Sex Female 3:43 AM MODEL ARTISTS' Gender Identity Not on file Sexual Orientation Not on file documented as of this encounter Plan of Treatment Not on file documented as of this encounter Visit Diagnoses Not on filedocumented in this encounter Care Teams Wire Transfer Clerk Relationship Specialty Start Date End Date Soren Mart MD PCP - General 02/10/09 documented as of this encounter
--- OUTSIDE RECORDS SUMMARY | 2024-10-01 17:33 | XMS_ITS | Continuity of Care Document ---
Author Organization [facility] Address [address] [facility] [address] [place] [address] Phone Care Team Providers Care Electronic Plotting System Operator Name Role Phone Maia Horner Unavailable Unavailable Advance Directives Directive Yes / No Effective Date File Name No Information Encounters Encounter Description Practice Location Reason(s) For Visit Diagnoses Date Provider Providers Copied on Encounter [facility], [address] [place] [address] [address], [place], [place], [id number], [place] tel:[phone] SEC [facility] [place] No Information May-0 9-200 0 Siri Carvalho. [address] , [address], [place], [address], [place]. tel:[phone] Family History Family Member Type Diagnosis Age [...]
--- OUTSIDE RECORDS SUMMARY | 2024-10-01 17:33 | XMS_ITS | Encounter Summary ---
Author Organization [employer] Address 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 Gender Identity Not on file Sexual Orientation Not on file documented as of this encounter Plan of Treatment Not on file documented as of this encounter Procedures Procedure Name Priority Date/Time Associated Diagnosis Comments URINE CULTURE Routine 05/21/2008 11:47 AM FARM PLANNER documented in this encounter Results * URINE CULTURE (05/21/2008 11:47 AM FARM PLANNER) PRELIMINARY REPORT Pending [facility] FINAL REPORT No growth 24 hours [facility] 05/21/2008 11:4 7 AM FARM PLANNER 05/21/2008 6:10 PM FARM PLANNER us Dario Coronel MD MICROBIOLOGY - GENERAL ORDER ADAM Final Result INTERFACE SYSTEM Refer to clinic/hospital department [facility] CLIA# [id number] [address] [place] [address] documented in this encounter Visit Diagnoses Not on filedocumented in this encounter Care Teams Angle Roll Operator Relationship Specialty Start Date End Date Soren Mart MD PCP - General 02/10/09 documented as of this encounter
--- OUTSIDE RECORDS SUMMARY | 2024-10-01 17:33 | XMS_ITS | Encounter Summary ---
Author Organization [facility] Address 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
--- OUTSIDE RECORDS SUMMARY | 2024-10-01 17:33 | XMS_ITS | Encounter Summary ---
Author Organization [facility] Address 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
--- OUTSIDE RECORDS SUMMARY | 2024-10-01 17:33 | XMS_ITS | Encounter Summary ---
Author Organization [facility] Address [address] [place] [address] Care Team Providers Care Client Success Director Name Role Phone Soren Mart MD Primary Care Provider [phone] Encounter Details Date Type Department Care Team (Late st Contact Info) Description 08/24/2007 Outpatient Historical 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
--- OUTSIDE RECORDS SUMMARY | 2024-10-01 17:33 | XMS_ITS | Encounter Summary ---
Author Organization [facility] Address [address] [place] [address] Care Team Providers Care Wharf Tally Clerk Name Role Phone Soren Mart MD Primary Care Provider [phone] Encounter Details Date Type Department Care Team (Late st Contact Info) Description 07/06/2007 Outpatient Historical [facility] Internal Medicine [address] [address] Inge Hutson MD NO ADDRESS ON FILE Social History Tobacco Use Types Packs/Day Years Used Date Smoking Tobacco: Never Assessed Comments Unknown Sex and Gender Information Value Date Recorded Sex Assigned at Not on file Legal Sex Female 3:43 AM [facility] Gender Identity Not on file Sexual Orientation Not on file documented as of this encounter Last Filed Vital Signs Vital Sign Reading Time Taken Comments Blood Pressure - - Pulse - - Temperature 37 C (98.6 F) 07/06/2007 11:45 AM [facility] Respiratory Rate - - Oxygen Saturation - - Inhaled Oxygen Concentration - - Weight 68 kg (150 lb) 07/06/2007 11:45 AM [facility] Height - - Body Mass Index - - documented in this encounter Plan of Treatment Not on file documented as of this encounter Visit Diagnoses Not on filedocumented in this encounter Care Teams Wharf Tally Clerk Relationship Specialty Start Date End Date Soren Mart MD PCP - General 02/10/09 documented as of this encounter
--- OUTSIDE RECORDS SUMMARY | 2024-10-01 17:33 | XMS_ITS | Encounter Summary ---
Author Organization [employer] Address [address] [place] [address] Care Team Providers Care Puller Machine Name Role Phone Soren Mart MD Primary Care Provider [phone] Encounter Details Date Type Department Care Team (Latest Contact Info) Description 06/05/2006 Outpatient Historical [facility] David Guillermo MD NO ADDRESS ON FILE Chronic Tonsillitis (Primary Dx) Social History Tobacco Use Types Packs/Day Years Used Date Smoking Tobacco: Never Assessed Comments Unknown Sex and Gender Information Value Date Recorded Sex Assigned at Not on file Legal Sex Female 3:43 AM NEON SIGN MAKER Gender Identity Not on file Sexual Orientation Not on file documented as of this encounter Plan of Treatment Not on file documented as of this encounter Procedures Procedure Name Priority Date/Time Associated Diagnosis Comments POC , URINE Routine 06/05/2006 9:20 AM NEON SIGN MAKER HEMOGLOBIN AND HEMATOCRIT Routine 06/05/2006 9:11 AM NEON SIGN MAKER documented in this encounter Results * POC , URINE (06/05/2006 9:20 AM NEON SIGN MAKER) , URINE POC Negative Negative INTERFACE SYSTEM 06/05/2006 9:20 AM NEON SIGN MAKER us David Guillermo MD POINT OF CARE TESTING Final Result INTERFACE SYSTEM Refer to clinic/hospital department * HEMOGLOBIN AND HEMATOCRIT (06/05/2006 9:11 AM NEON SIGN MAKER) HEMOGLOBIN 13.3 11.8 - 14.8 g/dL INTERFACE SYSTEM HEMATOCRIT 39.0 35.5 - 44.0 % INTERFACE SYSTEM 06/05/2006 9:11 AM NEON SIGN MAKER us David Guillermo MD HEMATOLOGY ORDERABLES Final Result INTERFACE SYSTEM Refer to clinic/hospital department documented in this encounter Visit Diagnoses Diagnosis Chronic tonsillitis- Primary documented in this encounter Care Teams Puller Machine Relationship Specialty Start Date End Date Soren Mart MD PCP - General 02/10/09 documented as of this encounter
--- OUTSIDE RECORDS SUMMARY | 2024-10-01 17:33 | XMS_ITS | Encounter Summary ---
Author Organization [employer] Address 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
--- OUTSIDE RECORDS SUMMARY | 2024-10-01 17:33 | XMS_ITS | Encounter Summary ---
Author Organization [employer] Address [address] [place] [address] Care Team Providers Care Agricultural Lender Name Role Phone Soren Mart MD Primary Care Provider Encounter Details Date Type Department Care Team (Latest Contact Info) Description 07/06/2005 [facility], History FX MID/PRX PHAL, HAND-CLOSE (Primary Dx) Social History Tobacco Use Types Packs/Day Years Used Date Smoking Tobacco: Never Assessed Comments Unknown Sex and Gender Information Value Date Recorded Sex Assigned at Not on file Legal Sex Female 3:43 AM YOUTH COUNSELOR Gender Identity Not on file Sexual Orientation Not on file documented as of this encounter Plan of Treatment Not on file documented as of this encounter Visit Diagnoses Diagnosis Closed fracture of middle or proximal phalanx or phalanges of hand- Primary documented in this encounter Care Teams Agricultural Lender Relationship Specialty Start Date End Date Soren Mart MD PCP - General 02/10/09 documented as of this encounter
--- OUTSIDE RECORDS SUMMARY | 2024-10-01 17:33 | XMS_ITS | Encounter Summary ---
Author Organization [facility] Address 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 [...] 150lbs TEMPERATURE: 98.6??f Oral NURSE NAME: Amelia LeeJaenine CHIEF COMPLAINT Patient complains of chest congestion, [...] on filedocumented in this encounter Care Teams Toy Packer Relationship Specialty Start Date End Date Soren Mart MD PCP - General 02/10/09 documented as of this encounter
--- OUTSIDE RECORDS SUMMARY | 2024-10-01 17:33 | XMS_ITS | Clinical Summary ---
Author Organization [facility] Address [address] [place] [address] Phone Care Team Providers Care Supervisor Final Name Role Phone Denny Norman MD Primary Care Provider [phone] Allergies No known active allergies Medications prazosin [...] drink = 0.6 oz pur e alcohol) [employer] Util[employer] Answer Date Recorded In the past 12 months has Poll Everywhere, [employer], oil, or water [employer] threatened to shut off services in your [...] week 11/20/2023 How often do you attend [facility] or pentecostal services? Patient declined 11/20/2023 Do you belong to any clubs o r organizations such as shinto groups, unions, fraternal or athletic groups, or [...] medical care, and heating? Patient declined 11/20/2023 [facility] - Occupational Stress Questionnaire Answer [...] Sex Assigned at Female 07/09/2023 12:53 PM PROCESS AREA SUPERVISOR Legal Sex Female 1:59 PM CDT Gender Identity Female 07/09/2023 12:53 PM PROCESS AREA SUPERVISOR Sexual Orientation Straight 07/09/2023 12 :53 PM PROCESS AREA SUPERVISOR Last Filed Vital Signs Vital Sign Reading [...] exam with routine gynecological exam PATHOLOGY CYTOLOGY METAL HANGER Routine 02/21/2023 2:35 PM CDT Well woman exam with routine gynecological exam from Last 3 Months or Most Recently Relevant to Health Maintenance Results * HEPATITIS C ANTIBODY (02/24/2024 12:00 AM CDT) 02/24/2024 us Provider Scan CHEMISTRY ORDERABLES Final Resul t SCAN * PATHOLOGY CYTOLOGY METAL HANGER (02/21/2023 2:35 PM CDT) SPECIMEN ADEQUACY Satisfactory for evaluation. Endocervical/transf ormation zone component is present. 03/11/2023 3:22 PM CDT [facility] GENERAL CATEGORY EPITHELIAL CELL ABNORMALITY. 03/11/2023 3:22 PM CDT [facility] DESCRIPTIVE DIAGNOSIS ASCUS: Atypical squamous cells of undetermined significance. 03/11/2023 3:22 PM CDT [facility] at 1522 CDT OTHER FINDINGS Fungal organisms present, morphologically consistent with Ricarda species. 03/11/2023 3:22 PM CDT [facility] Automated Examination Analysis of this sample has been assisted by an automated imaging and review system ([employer] Imaging System, [employer], [place], [place]). This case is further evaluated and finalized by a custom bike builder and/or pathologist. 03/11/2023 3:22 PM CDT [facility] Disclaimer The PAP smear is a [...] unless clinically indicated. 03/11/2023 3:22 PM CDT [facility] Other CERVIX UTERI STRUCTURE / Unknown Non-Phlebotomy Collection / Unknown 02/21/2023 2:35 PM CDT 02/21/2023 2:35 PM CDT us Amelia Beard APRN, CAD MANAGER PATHOLOGY/CYTOLOGY ORDER ADAM Final Result Performing Organization Address City/State/[facility] Co de Phone Number [facility] [address] [place] [address], * (ABNORMAL) HUMAN PAPILLOMA VIRUS (HPV) (02/21/2023 2:35 PM CDT) HPV OTHER HIGH RISK TYPES, PCR POSITIVE(A) NEGATIVE 02/25/2023 7:37 AM CDT [facility] Comment: Positive for one or more of the following Other High HPV types: 31, 33, 35, 39, 45, 51, 52, 56, 58, 59, 66, and 68. False-positive results have been reported with molecular assays. If these positive results are discordant with clinical/cytohistologic findings, repeat testing may be considered after an appropriate interval. HPV TYPE 16 NEGATIVE NEGATIVE 02/25/2023 7:37 AM CDT [facility] Comment: A negative high-risk HPV result [...] 18 NEGATIVE NEGATIVE 02/25/2023 7:37 AM CDT [facility] Comment: A negative high-risk HPV result [...] OR DIAGNOSTIC SCREENING 02/25/2023 7:37 AM CDT [facility] Other Non-Phlebotomy Collection / Unknown 02/21/2023 2:35 PM CDT 02/21/2023 2:35 PM CDT Narrative [facility] - 02/25/2023 7:37 AM CDT Performed by Real-Time Polymerase Chain Reaction (PCR) on the Caryl Marcellus 4800. This assay has been validated for use with post-aliquot samples from the [employer] T[employer] processor. us Amelia Beard APRN, CAD MANAGER LAB SEND OUTS Final Re sult [facility] [address] [place] [address], [place] from Last 3 Months or Most Recently Relevant to Health Maintenance Insurance MEDICAID [employer] Care Teams Supervisor Final Relationship Specialty Start Date End Date Denny Norman MD [address] [address] PCP - General Family Medicine 01/08/23
--- OUTSIDE RECORDS SUMMARY | 2024-10-01 17:33 | XMS_ITS | Encounter Summary ---
Author Organization [employer] Address 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 Gender Identity Not on file Sexual Orientation [...] HEMATOLOGY ORDERABLES Ed ited Performing Organization Address City/State/[facility] Co de Phone Number INTERFACE [...] HEMATOLOGY ORDERABLES Ed ited Performing Organization Address [facility] Phone Number INTERFACE SYSTEM Refer to clinic/hospital department * HEMOGLOBIN A1C (12/27/2006 12:31 PM CDT) HEMOGLOBIN A1C 5.4 4.1 - 6.1 % of Hgb INTERFACE SYSTEM GLUCOSE, MEAN BLOOD 115 mg/dL INTERFACE SYSTEM 12/27/2006 12:3 1 PM CDT us Inge Hutson MD CHEMISTRY ORDERABLES Darrel juan Performing Organization Address [facility] Phone Number INTERFACE SYSTEM Refer to [...] Darrel juan Performing Organization Address [facility] Phone Number INTERFACE SYSTEM Refer to clinic/hospital department * FERRITIN (12/27/2006 12:31 PM CDT) FERRITIN 39 13 - 150 ng/mL INTERFACE SYSTEM 12/27/2006 12:3 1 PM CDT us Inge Hutson MD CHEMISTRY ORDERABLES Darrel juan Performing Organization Address City/[facility] Co de Phone Number INTERFACE [...] and non- Americans is available on the [facility] Intranet at: [email or web address] Select: Lab Policies and Procedures Select: Reference Ranges - GFR 12/27/2006 12:3 1 PM CDT Inge Hutson MD CHEMISTRY ORDERABLES Darrel juan Performing Organization Address City/[facility] Co de Phone Number INTERFACE SYSTEM Refer to clinic/hospital department documented in this encounter Visit Diagnoses Diagnosis Disturbance of skin sensation- Primary documented in this encounter Care Teams Applications Scientist Relationship Specialty Start Date End Date Soren Mart MD PCP - General 02/10/09 documented as of this encounter
--- OUTSIDE RECORDS SUMMARY | 2024-10-01 17:33 | XMS_ITS | Clinical Summary ---
Author Organization [facility] Address [address] [place] [address] Care Team Providers Care Trust Manager Name Role Phone Soren Mart MD Primary Care Provider [phone] Allergies No known active allergies Medications ondansetron (ZOFRAN ODT) 4 mg Tablet, Rapid DissolveIndication s:Nausea Place 1 tab on top of tongue and let dissolve every 8 hours prn nausea.. 32 Tablet 3 7 Active mometasone-formote rol (DULERA) 100-5 mcg/actuation inhaler LOT:[id number] EX:11/2017 QTY:1 BOX. 1 Gram 7 Active [...] STL ABSTRACTION Provider, Abstract 08/05/2024 9:07 AM LATHE SETUP OPERATOR - 08/05/2024 11:59 PM LATHE SETUP OPERATOR Hospital Encounter [facility] [address] [place] [address] Jaydon Chase MD Discharge Disposition: [...] on file Legal Sex Female 3:43 AM LATHE SETUP OPERATOR Gender Identity Not on file [...] 113.4 kg (250 lb) 07/12/2020 4:03 PM LATHE SETUP OPERATOR Height 162.6 cm (5' 4 ) 07/12/2020 4:03 PM LATHE SETUP OPERATOR Body Mass Index 42.91 07/12/2020 4:03 PM LATHE SETUP OPERATOR Plan of Treatment Health Maintenance Due Date [...] UP PER FETUS Routine 08/05/2024 9:53 AM LATHE SETUP OPERATOR Encounter for ultrasound to assess growth Obesity during , antepartum CERV/VAG CYTO SCREEN PAP RLFX HPV Routine 11/02/2015 12:00 AM CDT from Last 3 Months or Most Recently Relevant to Health Maintenance Results * US OB FOLLOW UP PER FETUS (08/05/2024 9:53 AM LATHE SETUP OPERATOR) Anatomical Region Laterality Modality Pelvis Ultrasound 08/05/2024 9:32 AM LATHE SETUP OPERATOR Narrative 08/05/2024 9:57 AM LATHE SETUP OPERATOR STL FOLLOW UP ----- Pat. Name: ANNI BRYANT Study Date: 08/05/2024 9:32am Pat. NO: [id number] Referring MD: JAYDON CHASE MD Site: [place] [employer] Machine Operator Helper: Bri Toledo RDMS : 1990 Age: [...] Weeks of gestation O99.213: Obesity complicating Procedures 35114: Ultrasound, uterus, real time with image documentation, [...] 5 lb 8 oz EFW by Hadlock ([id number]) Head / Face / Neck Biometry: Conditioning Room Worker 5.3 mm Extremities / Bony Struc Biometry: [...] and date of were verified by the corporate risk analyst prior to the exam IMPRESSION ----- 1. [...] Pat. Name:Elaida BRYANT Date:08/05/2024 9:32am Pat. NO: [id number] :JAYDON CHASE MD [facility]:Bri Toledo RDMS :1990Age:34 ----- INDICATION ----- Maternal Care for Low Transverse Scar from Previous Delivery (Previous ) Maternal Obesity (BMI<40) Complicating Screening, Other Specified CODING ----- Diagnoses Z3A.33: Weeks of gestation Z36.89: Encounter to establish gestational ageusing ultrasound O99.213: Obesity complicating O34.211: Maternal care for low transverse scarfrom previous delivery Z36.3: Encounter for screening formalformations Z3A.33: Weeks of gestation O99.213: Obesity complicating Procedures 68720: Ultrasound, uterus, real time withimage documentation, follow up, transabdominal approach per fetus HISTORY ----- OB History 2. Para 1 T1L1 MATERNAL ASSESSMENT ----- Physical Exam Initial weight 95 kg, 210 lb. Initial BMI 37.20kg/m METHOD ----- Transabdominal ultrasound examination ----- Holt . Number of fetuses: 1 DATING ----- GA by prior [id number] w + 3 d ANA by prior [...] 5 lb 8 oz EFW by Hadlock ([id number]) Head / Face / Neck Biometry: Conditioning Room Worker 5.3mm Extremities / Bony Struc Biometry: FL [...] and date of were verified by the corporate risk analyst prior tothe exam IMPRESSION ----- 1. Single [...] (CP) (11/02/2015 12:00 AM CDT) CLINICAL INFORMATION [facility] Comment: Routine exam WELL WOMAN EXAM LAST MENSTRUAL PERIOD [facility] Comment:10/05/15 PREV PAP: [facility] Comment:Information not prov ided PREV BX: [facility] Comment:Information not prov ided SOURCE [facility] Comment:Endocervix ADEQUACY: [facility] Comment: Satisfactory for evaluation. Endocervical/transformation zone component present. INTERPRETATION [facility] Comment:Negative for intraep ithelial lesion or malignancy. CYTOLOGY INFECTION [facility] Comment: Shift in vaginal maureen suggestive of bacterial vaginosis. COMMENT [facility] Comment: This Pap test has been evaluated with computer assisted technology. ENTRY LEVEL: TAURUS [facility] Comment: MLO, CT(ASCP) CT screening location: [place] [address] [place] [address] Test Performed at: [facility] [address] [place] [address] DEBBIE CHOPRA MD 11/02/2015 us Delphine Lua DRY FINISHER PATHOLOGY/CYTOLOGY ORDERABLES F inal Result [facility] [address] [place] [address] from Last 3 Months or Most Recently Relevant to Health Maintenance Insurance Advance Directives For more information, please contact: [phone] * Full Code (Latest Code Status on File) Date Activated Date Inactivated Comments 12/21/2013 9:08 PM 12/22/2013 6:32 PM Care Teams Trust Manager Relationship Specialty Start Date End Date Soren Mart MD PCP - General 02/10/09
--- OUTSIDE RECORDS SUMMARY | 2024-10-01 17:33 | XMS_ITS | Encounter Summary ---
Author Organization [facility] Address 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 Can you prescribe a few for the stomach cramps. She has to go back to school to be able to be in Hel[employer]'s performance. NAUSEA: Patient complains of nausea. The [...] on filedocumented in this encounter Care Teams Voucher Clerk Relationship Specialty Start Date End Date Soren Mart MD PCP - General 02/10/09 documented as of this encounter
--- OUTSIDE RECORDS SUMMARY | 2024-10-01 17:33 | XMS_ITS | Encounter Summary ---
Author Organization [facility] Address 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 CURRENT ALLERGY LIST: NO KNOWN DRUG ALLERGY PROBLEMS: all x 2 weeks CONGESTION: Patient complains of sinus congestion, complains of head congestion, complains of chestcongestion, complains of nasal congestion. COUGH:Patient complains of cough. symptoms had improved some, but now rigo in head worse. SECTION 1: REQUESTED ACTION [facility] 01/16/07 at 04:13 pm: MEDICATION REQUEST: Patient wants medications and can not come in. DOCTOR`S RESPONSE: [facility] 01/16/07 at 04:[address] Mccormick MEDICATIONS: Call in to Pharmacy DIFLUCAN ORAL TABLET 150 MG, 1 Every Day, 1 Dispensed, status: NEW PRESCRIPTION, 01/16/2007. MEDROL (SANDRA) ORAL TABLET 4 MG, 1 PACKET ORAL DIRECTED, 1 Dispensed, status: NEW PRESCRIPTION, 01/16/2007. ZITHROMAX Z-SANDRA ORAL TABLET 250 MG, TAKE DIRECTED, 1 Dispensed, status: CONTINUED, 01/16/2007. also steam inhalations FINAL ACTION: [facility] 01/16/07 at 04:15 pm Spoke with patient 01/16/07 at 04:15 pm. mom printed script Electronically Signed by: Maribeth Sanchez on Friday, April 06, 2007 documented in this encounter Plan of Treatment Not on file documented as of this encounter Visit Diagnoses Not on filedocumented in this encounter Care Teams Tumbler Tender Relationship Specialty Start Date End Date Soren Mart MD PCP - General 02/10/09 documented as of this encounter
--- OUTSIDE RECORDS SUMMARY | 2024-10-01 17:33 | XMS_ITS | Encounter Summary ---
Author Organization [facility] Address [address] [place] [address] Phone Care Team Providers Care Seed Corn Manager Production Name Role Phone Denny Norman MD Primary Care Provider [phone] Encounter Details Date Type Department Care Team (Late st Contact Info) Description 01/02/2023 Telephone [facility] [address] [place] [address] Provider, None [place] Social History Tobacco Use Types Packs/Day Years Used Date Smoking Tobacco: Never Assessed Comments Unknown Sex and Gender Information Value Date Recorded Sex Assigned at Female 07/09/2023 12:53 PM TOOL CRIB ATTENDANT Legal Sex Female 1:59 PM CDT Gender Identity Female 07/09/2023 12:53 PM TOOL CRIB ATTENDANT Sexual Orientation Straight 07/09/2023 12 :53 PM TOOL CRIB ATTENDANT documented as of this encounter Miscellaneous Notes [...] see someone other than physician, such as TECHNOLOGY EDUCATION INSTRUCTOR, PA, resident? yes Patient reason for appointment/any current symptoms: establish care med refills Other information (including need for ball assembler): no documented in this encounter Plan of Treatment Not on file documented as of this encounter Visit Diagnoses Not on filedocumented in this encounter Care Teams Seed Corn Manager Production Relationship Specialty Start Date End Date Denny Norman MD [address] [address] PCP - General Family Medicine 01/08/23 documented as of this encounter
--- OUTSIDE RECORDS SUMMARY | 2024-10-01 17:33 | XMS_ITS | Encounter Summary ---
Author Organization [employer] Address 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 Gender Identity Not on file [...] AM CDT Narrative 08/24/2007 1:35 PM CDT [facility] [address] [place], [place] [address] Admit Date: 08/24/2007 ANNI [place] Sex: F Admit Prov: PORTER CHRISTIANSON Date: 1990 Primary Care Prov: ALYX REGAN CMRN: [id number] [id number] IM[facility] Ordering Prov: N/A Accession Number: [id number] Interpretation CT HEAD WITHOUT CONTRAST, 08/23/2005 History: [...] CUONG SHAFFER 08/24/2007 13:35 Transcribed: 08/24/2007 13:11 [facility] Procedure Note Provider, Historical - 08/24/2007 [place] [id number] [place], [place] [address] Admit Date: 08/24/2007 ANNI [place] Sex: F Admit Prov: PORTER CHRISTIANSON Date: 1990 Primary Care Prov: ALYX REGAN CMRN: [id number] [facility] [id number] IMAGING SERVICES Ordering Prov: N/A Interpretation CT [...] consciousness documented in this encounter Care Teams Corporate Representative Relationship Specialty Start Date End Date Porter Christianson MD PCP - General 02/10/09 documented as of this encounter
--- OUTSIDE RECORDS SUMMARY | 2024-10-01 17:33 | XMS_ITS | Encounter Summary ---
Author Organization [employer] Address 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 [...] Procedure Note Denver Panda MD - 08/25/2008 [place] [address] [place], [place] [address] Admit Date: 08/25/2008 ANNI [place] Sex: F Admit Prov: ER, AUTHORIZED P Date: 1990 Primary Care Prov: CMRN: [id number] [id number] [facility] Ordering Prov: N/A Interpretation EXAMINATION: [...] premises documented in this encounter Care Teams Director Of Compliance Relationship Specialty Start Date End Date Soren Mart MD PCP - General 02/10/09 documented as of this encounter
--- OUTSIDE RECORDS SUMMARY | 2024-10-01 17:33 | XMS_ITS | Encounter Summary ---
Author Organization [employer] [facility] Address [address] [place] [address] Care Team Providers Care Tool Polishing Machine Operator Name Role Phone Soren Mart MD Primary Care Provider [phone] Encounter Details Date Type Department Care Team (Late st Contact Info) Description 02/27/2012 Chart Note [facility] [place] [address] [facility] [address] [place] [address] Radha Mcallister, Physical Therapist Social History Tobacco Use Types Packs/Day Years Used Date Smoking Tobacco: Never Smokeless Tobacco: Never Alcohol Use Standard Drinks/Week Comments No 0 (1 standard drink = 0.6 oz pur e alcohol) Comments No Sex and Gender Information Value Date Recorded Sex Assigned at Not on file 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 [address] [place] [address] documented in this encounter Plan of Treatment Not on file documented as of this encounter Visit Diagnoses Not on filedocumented in this encounter Care Teams Tool Polishing Machine Operator Relationship Specialty Start Date End Date Soren Mart MD PCP - General 02/10/09 documented as of this encounter
--- OUTSIDE RECORDS SUMMARY | 2024-10-01 17:33 | XMS_ITS | Encounter Summary ---
Author Organization [facility] Address 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
--- OUTSIDE RECORDS SUMMARY | 2024-10-01 17:33 | XMS_ITS | Encounter Summary ---
Author Organization [facility] Address 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 [facility] WHO TOOK THE CALL: Amelia Lee R GENERAL INFORMATION ALTERNATIVE PHONE NUMBER: [phone] or work WHO CALLED: Patient`s mother called. CURRENT ALLERGY LIST: NO KNOWN DRUG ALLERGY PHARMACY NUMBER: [phone] PROBLEMS: feeling terrible, chest tight-wheezing sound, did [...] on filedocumented in this encounter Care Teams Employment Law Attorney Relationship Specialty Start Date End Date Soren Mart MD PCP - General 02/10/09 documented as of this encounter
--- OUTSIDE RECORDS SUMMARY | 2024-10-01 17:34 | XMS_ITS | Encounter Summary ---
Author Organization [facility] Address 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 CURRENT ALLERGY LIST: NO KNOWN DRUG ALLERGY PHARMACY NUMBER: [phone] [employer]a PROBLEMS: VAGINAL DISCHARGE: [...] some metrogel but would have her see school leader if her sx persist. MEDICATIONS: Call in [...] on filedocumented in this encounter Care Teams Seal Delivery Vehicle Officer Relationship Specialty Start Date End Date Soren Mart MD PCP - General 02/10/09 documented as of this encounter
--- OUTSIDE RECORDS SUMMARY | 2024-10-01 17:34 | XMS_ITS | Encounter Summary ---
Author Organization [employer] Address 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 Findings: The paranasal sinuses are clear. The orbits are intact. The soft tissues are unremarkable. Impression: Unremarkable study. . Dictated by: VANDANA MCCRARY 02/04/2008 13:43 Electronically signed by: VANDANA MCCRARY 02/04/2008 13:44 Procedure Note Vandana Mccrary - 02/04/2008 [facility] [address] [place], [place] [address] Admit Date: 02/04/2008 ANNI [place] Sex: F Admit Prov: ER, AUTHORIZED P Date: 1990 Primary Care Prov: CMRN: [id number] [facility] SS[facility]: [id number] IMAGING SERVICES Ordering Prov: N/A Interpretation Sinuses [...] KETONES UA Negative Negative [facility] CLARITY UA Clear Clear [facility] BILIRUBIN UA Negative Negative [facility] PROTEIN UA Negative Negative [facility] LEUKOCYTE ESTERASE UA Negative Negative [facility] SPECIFIC GRAVITY UA 1.005 1.001 - 1.035 [facility] GLUCOSE UA Negative Negative [facility] BLOOD U[facility] Negative Negative [facility] COLOR UA Pale Yellow [facility] NITRITE UA Negative Negative [facility] UROBILINOGEN UA <1 <=1 mg/dL [facility] PH UA 7.0 5.0 - 8.0 [facility] 02/04/2008 1:15 PM CDT 02/04/2008 1:17 PM CDT Ingrid Giang NP URINE ORDERABLES Final Result INTERFACE SYSTEM Refer to clinic/hospital department [facility] CLIA# [id number] [address] [place] [address] * URINALYSIS WITH REFLEX CULTURE (02/04/2008 1:15 PM CDT) [facility] URINE CULTURE ORDER Not indicated [facility] [...] CDT 02/04/2008 1:17 PM CDT Ingrid Giang SEED SERVICE ADVISOR URINE ORDERABLES Final Result Performing Organization Address [facility] de Phone Number INTERFACE SYSTEM Refer to clinic/hospital department [facility] CLIA# [id number] [address] [place] [address] * POC , URINE (02/04/2008 1:11 PM CDT) [facility] , URINE POC Negative Negative [facility] SPECIFIC GRAVITY UA 1.010 1.001 - 1.035 [facility] Urine specimen (specimen) 02/04/2008 1:11 PM CDT 02/04/2008 1:11 PM CDT us Authorized P Er POINT OF CARE TESTING Final Resu lt Performing Organization Address [facility] de Phone Number INTERFACE SYSTEM Refer to clinic/hospital department [facility] CLIA# [id number] [address] [place] [address] * POC URINALYSIS DIPSTICK (02/04/2008 1:09 PM CDT) [facility] CLARITY UA Clear [facility] PROTEIN UA Negative Negative [facility] BLOOD UA Negative Negative [facility] LEUKOCYTE ESTERASE UA Negative Negative [facility] UROBILINOGEN UA Normal <=1 mg/dL [facility] SPECIFIC GRAVITY UA 1.010 1.001 - 1.030 [facility] GLUCOSE UA Negative Negative [facility] COLOR UA Pale [facility] BILIRUBIN UA Negative Negative [facility] NITRITE UA Negative Negative [facility] PH UA 7.0 5.0 - 8.0 [facility] KETONES UA Negative Negative [facility] COMMENT, URINE Test not chrgd/to repeat [facility] Urine specimen (specimen) 02/04/2008 1:09 PM CDT 02/04/2008 1:09 PM CDT us Authorized P Er POINT OF CARE TESTING Edited INTERFACE SYSTEM Refer to clinic/hospital department [facility] CLIA# [id number] [address] [place] [address] * (ABNORMAL) CBC WITH DIFFERENTIAL (02/04/2008 11:50 [...] 16 - 45 % [facility] BASOPHILS ABSOLUTE 0.00 0.00 - 0.20 K/uL [facility] BASOPHILS 0 0 - 2 % [facility] MONOCYTE ABSOLUTE 0.31 0.10 - 1.30 K/uL [facility] MONOCYTES 3 3 - 13 % [facility] RBC MORPHOLOGY Normal Normal [facility] [...] 0 - 7 % [facility] LYMPHOCYTE ABSOLUTE 1.25 0.70 - 4.50 K/uL [facility] Blood specimen (specimen) 02/04/2008 11:50 AM CDT 02/04/2008 11:55 AM CDT us Ingrid Giang NP HEMATOLOGY ORDERABLES Edited INTERFACE SYSTEM Refer to clinic/hospital department [facility] CLIA# [id number] [address] [facility] [address] [place] [address] * MONONUCLEOSIS SCREEN (02/04/2008 11:50 AM CDT) MONONUCLEOSIS SCREEN Negative Negative [facility] Blood specimen (specimen) 02/04/2008 11:50 AM CDT 02/04/2008 11:55 AM CDT Ingrid Giang NP HEMATOLOGY ORDERABLES Final R esult Performing Organization Address [facility] de Phone Number INTERFACE SYSTEM Refer to clinic/hospital department [facility] CLIA# [id number] [address] [place] [address] * C-REACTIVE PROTEIN (02/04/2008 11:50 AM CDT) Pathologist [facility] CRP 0.2 0.0 - 0.8 mg/dL [facility] Blood specimen (specimen) 02/04/2008 11:50 AM CDT 02/04/2008 11:55 AM CDT Ingrid Giang NP CHEMISTRY ORDERABLES Final Re sult Performing Organization Address [facility] de Phone Number INTERFACE SYSTEM Refer to clinic/hospital department [facility] CLIA# [id number] [address] [place] [address] * COMPREHENSIVE METABOLIC PANEL (02/04/2008 11:50 AM [...] the [facility] Intranet at: [email or web address] Select: Lab Policies and Procedures Select: Reference Ranges - GFR Blood specimen (specimen) 02/04/2008 11:50 AM CDT 02/04/2008 11:55 AM CDT Ingrid Giang SEED SERVICE ADVISOR CHEMISTRY ORDERABLES Edited INTERFACE SYSTEM Refer to clinic/hospital department [facility] CLIA# [id number] [address] [place] [address] documented in this encounter Visit Diagnoses Not on filedocumented in this encounter Care Teams Brake Shoe Rebuilder Relationship Specialty Start Date End Date Soren Mart MD PCP - General 02/10/09 documented as of this encounter
--- NOTE | 2024-10-01 19:12 | ECG_ITS ---
Test Date: 2024-10-01 20:23:48 Measurements Intervals [place] Rate: 75 P: 55 MA: 152 QRS: 19 QRSD: 79 T: 48 QT: 378 QTc: 425 Interpretive Statements SINUS RHYTHM BASELINE ARTIFACT- I, II, III, AVR, AVL NORMAL ECG Compared to ECG 10/01/2024 16:26:07 No significant changes Electronically Signed On 10-01-2024 20:29:35 CDT by Jc Chopra D.O.
[2024-10-01 19:37] LABS: Add Urine Microscopic? YES; Appearance Urine Cloudy (Clear); Bacteria Urine None Seen /hpf; Bilirubin Urine Negative (Negative); Blood Urine 2+ (Negative); Color Urine Yellow (Yellow); Glucose Urine UA Negative (Negative); Ketones Urine Negative (Negative); Leukocyte Esterase Ur 2+ LEU/UL (Negative); Nitrate Urine Negative (Negative); Non Pathogenic Casts 0-2; Protein Urine Trace mg/dL (Negative); Specific Grav Ur 1.034 (1.001-1.035); Squamous Epithelial Cell Urine None Seen /hpf (Few); WBC Urine >100 /hpf (0-3); pH Urine 5.5 (5.0-9.0)
[2024-10-01 19:45] LABS: Troponin I < 0.012 ng/mL (0.000-0.034)
[2024-10-01] MEDS: SODIUM CHLORIDE 0.9% IV 1,000 ML 999 ML IV CONT (19:46)
[2024-10-01] MEDS: ONDANSETRON INJ 4 MG/2 ML VIAL IV PUSH (19:46)
[2024-10-01] MEDS: FAMOTIDINE 20 MG/2 ML VIAL IV PUSH (19:47)
[2024-10-01] MEDS: ACETAMINOPHEN 500 MG TABLET 1000 MG PO (19:47)
[2024-10-01] MEDS: KETOROLAC 15 MG/ML VIAL (*BKC) IV PUSH (21:13)
== END 2024-10-01 23:18 | disposition home or self-care (01) ==
PROVIDERS: Emergency Medicine; Physician Assistant; Emergency Provider Physician Assistant
DX: O86.20 Urinary tract infection following delivery, unspecified (principal); N39.0 Urinary tract infection, site not specified; O99.893 Other specified diseases and conditions complicating puerperium; R07.89 Other chest pain; O14.95 Unspecified pre-eclampsia, complicating the puerperium; O99.63 Diseases of the digestive system complicating the puerperium; K21.9 Gastro-esophageal reflux disease without esophagitis; O99.345 Other mental disorders complicating the puerperium; F41.9 Anxiety disorder, unspecified; Z79.899 Other long term (current) drug therapy
CPT/HCPCS: 36415; 71046; 71275; 80053; 81001; 83690; 83735; 84484; 84550; 85025; 85610; 85730; 87086; 93005; 96361; 96374; 96375; 99284; A9270; J1885; J2405; J7030; Q9967

== ENCOUNTER 2024-11-25 18:31 | Emergency (ER) | payer OTHER, SELFPAY ==
--- NOTE | 2024-11-25 18:34 | ED.SKABFB ---
HPI - Skin/Abscess/Foreign Bdy General Chief complaint: Skin/Abscess/Foreign Body Stated complaint: Insect Bite Time Seen by Provider: 11/25/24 18:38 Source: patient, RN notes reviewed and old records reviewed Mode of arrival: ambulatory Limitations: no limitations History of Present Illness HPI narrative: 34-year-old female presents to the [facility] with complaints of being bit by an insect on Friday, 5 days ago. Redness that she reports keeps getting bigger on her right upper arm lateral aspect. Area is warm, not swollen. No fluctuance center. Related Data Allergies Allergy/AdvReac Type Severity Reaction Status Date / Time No Known Allergies Allergy Verified 11/25/24 18:33 Review of Systems Review of Systems: All systems reviewed & are unremarkable except as noted in HPI and below Constitutional: Constitutional: Reports no additional constitutional complaints ENT: Reports system reviewed and no additional complaints, except as documented Cardiovascular: Cardiovascular: Reports no additional cardiovascular complaints, Denies chest pain and Denies dyspnea Respiratory: Respiratory: Reports no additional respiratory complaints, Denies chest congestion, Denies cough and Denies dyspnea Musculoskeletal: Musculoskeletal: Reports no additional musculoskeletal complaints Integumentary/Breasts: Skin/Breast: Reports as per HPI PMFSH Past Medical History Medical History History of pre-eclampsia in prior , currently Genital warts due to HPV (human papillomavirus) Abnormal Pap smear of cervix delivery delivered Thoracic outlet syndrome GERD (gastroesophageal reflux disease) Anxiety Surgical History Surgical History [place] teeth extracted H/O colposcopy with cervical biopsy Family History Family History Mother Diabetes mellitus Father Heart disease Diabetes mellitus Hypertension Grandparent Cancer Social History Social History Smoking status: Never smoker Alcohol intake: never Substance use: never Substance use type: does not use Do You Feel Safe in your Home?: Yes Lack of Transportation: No Lack of Food: Never True Current Housing: I Have Housing Concerned About Future Housing: No Difficulty Paying Gas/Electric Bills: No Difficulty Paying for Meds: No Currently Unemployed: No Education: Associate Degree Difficulty w/ Childcare or Family Care: No Spiritual care concerns: No Comments At the time of my signature, I reviewed and agree with the nursing past medical, surgical, social, and family history. There is no relevant family history pertinent to the patient complaint. Exam Const: General: cooperative, healthy appearing, comfortable, no acute distress, well developed, alert and well nourished Nutritional Appearance: well nourished and obese Orientation/consciousness: patient oriented x3 Limitations: no limitations HENMT: Head: normal to inspection Eyes: General: appearance normal, both eyes and all related structures Alignment and Position: alignment normal Neck: Neck: normal visual inspection, full ROM, no lymphadenopathy and no meningeal signs Chest: Chest palpation & inspection: normal inspection of the chest Resp: Effort & Inspection: normal respiratory effort and able to speak in complete sentences Cardio: Rate: regular rate Skin: General skin exam: normal color and no rashes or lesions noted Other: Erythema right posterior upper arm mid. 9 x 5 cm, no fluctuance, no swelling. Neuro: General: patient oriented x3, gait normal, moves all extremities and no meningeal signs Cognition (Neuro): normal cognition Speech: normal speech Gait exam (Neuro): Normal gait present Extrem: General: normal to inspection, full ROM, capillary refill normal and normal gait Right upper extremity: shoulder/upper arm normal to inspection and elbow/forearm normal to inspection Psych: Appearance: grossly normal and well kempt Mental Status: mental status grossly normal Speech and movement: Normal speech and movement present and Clear speech present Affect: normal affect Attitude: cooperative Course Course Level of Care: Express Care Visit Vital Signs Vital signs: Vital Signs Temperature 97.6 F 11/25/24 18:38 Pulse Rate 81 11/25/24 18:38 Respiratory Rate 16 11/25/24 18:38 Blood Pressure 126/71 11/25/24 18:38 Pulse Oximetry 100 11/25/24 18:38 Oxygen Delivery Room Air 11/25/24 18:38 Temperature 97.6 F 11/25/24 18:38 Pulse Rate 81 11/25/24 18:38 Respiratory Rate 16 11/25/24 18:38 Blood Pressure 126/71 11/25/24 18:38 Pulse Oximetry 100 11/25/24 18:38 Oxygen Delivery Room Air 11/25/24 18:38 Reviewed MDM - Skin/Abscess/Foreign Bdy MDM Narrative Medical decision making narrative: Patient sitting in exam room. Patient is nontoxic patient presents with erythema to the posterior upper arm post insect bite on Friday, 5 days ago. Most likely inflammatory however will cover with an antibiotic in case secondary cellulitis. Patient appropriate for outpatient treatment with close follow-up Discharge instructions reviewed with patient, as well as provided in writing per nursing staff. The instructions also include specific and strict return/GO TO THE ER as well as f/u information. All questions have been answered, and the patient deny any further questions with discharge and discharge plan. Some parts of this dictation were generated by voice recognition software and may contain typographical and/or grammatical inaccuracies. Differential Diagnosis Differential diagnosis: Likely abscess of skin or subcutaneous tissue, viral exanthem, urticaria, allergic reaction to drug, cellulitis, insect bites, impetigo and contact dermatitis Critical Care Time Critical Care Time Critical Care Time: No Discharge Plan Discharge Clinical Impression: Insect bites Patient Disposition: Home Condition: Stable Instructions: Antibiotic Form, Insect Bite or Sting (ED) Additional Instructions: The most important part of your care is follow up with Primary care provider. Take Benadryl 25mg every 8 hours for itching Take Zyrtec every day Take Pepcid 20mg daily for 7 days Avoid hot showers, Take cool showers. Hot showers will make rashes worse Apply cool compresses every 2-3 hours for 15 minutes Go to the ER for new or worsening symptoms such as shortness of breath. Patient Language: [place] Prescriptions: New sulfamethoxazole-trimethoprim [Bactrim DS] 800-160 mg tablet 1 tablet PO Q12H Qty: 14 0RF No Action medroxyprogesterone [Depo-Provera] 150 mg/mL suspension 150 mg IM [id number] Qty: 1 4RF buspirone 10 mg Tablet 10 mg PO BID Qty: 60 0RF Follow-up/Referrals: PHYSICIAN,MEDICAL SERVICE REPRESENTATIVE [Primary Care Provider] - Time of Disposition: 18:44
[2024-11-25 18:38] VITALS: BP 126/71; PULSE 81; RESP 16; TEMP 36.4; O2SAT 100
== END 2024-11-25 19:00 | disposition home or self-care (01) ==
PROVIDERS: Emergency Provider Nurse Practitioner
DX: S40.861A Insect bite (nonvenomous) of right upper arm, initial encounter (principal); W57.XXXA Bitten or stung by nonvenomous insect and other nonvenomous arthropods, initial encounter; K21.9 Gastro-esophageal reflux disease without esophagitis; G54.0 Brachial plexus disorders; F41.9 Anxiety disorder, unspecified
CPT/HCPCS: 99213; G0463

== ENCOUNTER 2025-03-22 07:07 | Outpatient (CLI) | payer OTHER, SELFPAY ==
--- NOTE | ~2025-03-22 | US_ITS ---
Examination: US abdomen complete Clinical History: R19.7 - Diarrhea, unspecified . Comparison: None Technique: Complete abdominal sonography Findings: Liver: Question micronodular contour. Enlarged. Slightly echogenic. No intrahepatic biliary ductal dilatation. Normal hepatopedal flow main portal vein. Common duct: Normal caliber, 4 mm. Gallbladder: No stones. No wall thickening. No pericholecystic fluid. Spleen: Mildly enlarged. Pancreas: Unremarkable. Kidneys: Unremarkable. Aorta: No aneurysmal dilatation. Retrohepatic IVC: Unremarkable. IMPRESSION: 1. Probable mild hepatic steatosis and/or hepatocellular disease. 2. No acute findings. Reviewed, dictated and finalized at location R.
== END 2025-03-22 07:08 | disposition home or self-care (01) ==
LOC: ANHIMG 07:10
PROVIDERS: PCP Internal Medicine; Visit Provider Internal Medicine Gastroenterology
DX: R19.7 Diarrhea, unspecified (principal); R10.9 Unspecified abdominal pain
CPT/HCPCS: 76700